=== PATIENT | male | born 1975 | race Caucasian/White ===

== ENCOUNTER 2018-10-30 11:30 | Emergency (ER) | payer OTHER ==
--- OUTSIDE RECORDS SUMMARY | 2018-10-30 11:39 | XMS REPORT ---
:1975 [facility] Address [address] [place] [address] Care Team Providers Name Role Phone Unavailable Unavailable Unavailable Problems This patient has no known problems. Allergies, Adverse Reactions, Alerts This patient has no known allergies or adverse reactions. Medications This patient has no known medications.
--- NOTE | 2018-10-30 14:19 | EDPHYS ---
Physician Documentation [facility] Name: Lauri Redmond Age: 43 yrs Sex: Male : 1975 Arrival Date: 10/30/2018 Time: 11:33 Bed 24 Private MD: ED Physician Miller Burroughs HPI: 10/30 14:06 This 43 yrs old Male presents to ER via Ambulatory with complaints of Arm kdr Injury. 14:06 The patient or guardian complains of injury, pain, that is acute. The complaints affect kdr the left bicep and left antecubital area. Context: The problem was sustained at work, resulted from Nail gun - nail to left distal upper arm. Onset: The symptoms/episode began/occurred acutely, 4 day(s) ago. Treatment prior to arrival includes: no previous treatment, christopher wrap. Modifying factors: The symptoms are alleviated by remaining still, the symptoms are aggravated by movement, Christopher wrap to arm. Associated signs and symptoms: The patient has no apparent associated signs or symptoms. Severity of symptoms: At their worst the symptoms were mild, in the emergency department the symptoms are unchanged. The patient has not experienced similar symptoms in the past. The patient has not recently seen a physician. Historical: - Allergies: 11:47 Hydrocodone-Acetaminophen (Upset stomach); sleeping; tw2 11:47 "basically any generic thing for pain"; tw2 - Home Meds: 11:47 Metoprolol Tartrate Oral [Active]; lisinopril-hydrochlorothiazide oral [Active]; tw2 hydrocodone-acetaminophen 7.5-325 mg Oral tab 1 tab every 4 hours [Active]; - PMHx: 11:47 Hypertension; Back pain; tw2 - Immunization history:: Last tetanus immunization: unknown. - Social history:: Smoking status: Patient uses tobacco products, smokes one pack cigarettes per day. smokes two packs cigarettes per day. - Ebola Screening: : Patient denies travel to an Ebola-affected area in the 21 days before illness onset. ROS: 14:06 Constitutional: Negative for fever, chills, and weight loss, Eyes: Negative for injury, kdr pain, redness, and discharge, Neck: Negative for injury, pain, and swelling. 14:06 MS/extremity: Positive for injury or acute deformity, ecchymosis, pain, tenderness, of the left bicep and left antecubital area. Exam: 14:06 Constitutional: This is a well developed, well nourished patient who is awake, alert, kdr and in no acute distress. 14:06 Musculoskeletal/extremity: Extremities: grossly normal except: There is a small puncture wound to the anterior left distal bicep. Large area of ecchymosis surrounding the puncture wound but minimal erythema, tenderness and no discharge, ROM: no acute changes. Vital Signs: 11:42 BP 135 / 96; Pulse 88; Resp 17; Temp 98.4(O); Pulse Ox 96% on R/A; Weight 99.34 kg (R); tw2 Height 5 ft. 11 in. (180.34 cm); Pain 0/10; 13:03 BP 148 / 85; Pulse 84; Resp 19 S; Pulse Ox 97% on R/A; ca1 14:10 BP 130 / 85; Pulse 84; Resp 19 S; Pulse Ox 96% on R/A; ca1 11:42 Body Mass Index 30.54 (99.34 kg, 180.34 cm) tw2 MDM: 14:06 Data reviewed: vital signs, nurses notes. Counseling: I had a detailed discussion with kdr the patient and/or guardian regarding: the historical points, exam findings, and any diagnostic results supporting the discharge/admit diagnosis, the need for outpatient follow up. 14:19 Patient medically screened. kdr Administered Medications: 14:07 Drug: KeFLEX 500 mg Route: PO; ca1 14:30 Follow up: Response: No adverse reaction ca1 14:08 Drug: Tetanus-Diphtheria Toxoid Adult 0.5 ml {[employer]p [employer]: [employer]. Exp: ca1 09/05/2020. Lot #: [id number]. } Route: IM; Site: left deltoid; 14:30 Follow up: Response: No adverse reaction ca1 Disposition: 10/30/18 14:19 Discharged to Home. Impression: Puncture wound without foreign body of left upper arm. - Condition is Stable. - Discharge Instructions: Puncture Wound, [id number]. - Prescriptions for Keflex 500 mg Oral Capsule - take 1 capsule by ORAL route every 6 hours for 7 days; 28 capsule. - Medication Reconciliation Form, Thank You Letter, Antibiotic Education form. - Follow up: Private Physician; When: 1 - 2 days; Reason: If symptoms return, Further diagnostic work-up, Recheck today's complaints, Continuance of care, Re-evaluation by your physician. - Problem is new. - Symptoms are unchanged. Signatures: Miller Burroughs MD MD kdr Bren Sullivan RN RN tw2 Kailyn Nevarez RN RN ca1 Corrections: (The following items were deleted from the chart) 14:30 14:19 10/30/2018 14:19 Discharged to Home. Impression: Puncture wound without foreign ca1 body of left upper arm. Condition is Stable. Forms are Medication Reconciliation Form, Thank You Letter, Antibiotic Education, Prescription Opioid Use. Follow up: Private Physician; When: 1 - 2 days; Reason: If symptoms return, Further diagnostic work-up, Recheck today's complaints, Continuance of care, Re-evaluation by your physician. Problem is new. Symptoms are unchanged. kdr
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
[2018-10-30] MEDS ORDERED: CEPHALEXIN 250 MG CAP ONE (14:23)
[2018-10-30] MEDS ORDERED: TETANUS & DIPHTHERIA TOX,ADULT 0.5 ML VIAL ONE (14:23)
[2018-10-30 14:43] VITALS: TEMP 98.4
[2018-10-30 14:54] VITALS: BP 130/85; O2SAT 96
== END 2018-10-30 14:30 | disposition home or self-care (01) ==
LOC: ER 11:30
DX: S41.132A Puncture wound without foreign body of left upper arm, initial encounter (principal); W29.4XXA Contact with nail gun, initial encounter; I10 Essential (primary) hypertension; F17.210 Nicotine dependence, cigarettes, uncomplicated; Z23 Encounter for immunization; Z88.5 Allergy status to narcotic agent
CPT/HCPCS: 90714; 99283

== ENCOUNTER 2019-08-08 20:00 | Emergency (ER) | payer OTHER ==
--- OUTSIDE RECORDS SUMMARY | 2019-08-08 20:02 | XMS REPORT ---
:1975 [facility] Address [address] [place] [address] Care Team Providers Name Role Phone Unavailable Unavailable Unavailable Problems This patient has no known problems. Allergies, Adverse Reactions, Alerts This patient has no known allergies or adverse reactions. Medications This patient has no known medications.
[2019-08-08] MEDS ORDERED: DIPHENHYDRAMINE 50 MG/ML VIAL ONE (22:41)
[2019-08-08] MEDS ORDERED: NA CHLORIDE 0.9% 250 ML ONE (22:41)
[2019-08-08] MEDS ORDERED: METOCLOPRAMIDE 10 MG/2mL INJ ONE (22:41)
[2019-08-08 23:08] LABS: Absolute Lymphocytes (CBC) 1.4 K/uL (0.7-4.9); Basophils % 1.2 % (0-1.3); Hematocrit 48.7 % (39.6-49.0); Lymphocytes % 13.7 % (15.3-44.8); RBC Red Blood Cell Count 5.94 M/uL (4.33-5.43)
[2019-08-08 23:31] LABS: MPV 10.8 fL (7.6-11.3)
[2019-08-09 00:20] LABS: Albumin 3.6 g/dL (3.4-5.0); Bilirubin Total 0.4 mg/dL (0.2-1.0); Potassium 4.2 mmol/L (3.5-5.1); Protein, Total 7.9 g/dL (6.4-8.2)
--- NOTE | 2019-08-09 00:57 | ER ---
Nurse's Notes [facility] Name: Lauri Redmond Age: 44 yrs Sex: Male : 1975 Arrival Date: 08/08/2019 Time: 20:02 Bed 16 Private MD: Diagnosis: Headache;Acute sinusitis Presentation: 08/08 20:08 Presenting complaint: Patient states: Facial pain, ear pain, for the past 2 days. aj1 Patient states that he is unsure if he has been running fever. Transition of care: patient was not received from another setting of care. Onset of symptoms was 2019. Risk Assessment: Do you want to hurt yourself or someone else? Patient reports no desire to harm self or others. Initial Sepsis Screen: Does the patient meet any 2 criteria? No. Patient's initial sepsis screen is negative. Does the patient have a suspected source of infection? No. Patient's initial sepsis screen is negative. Care prior to arrival: None. 20:08 Method Of Arrival: Ambulatory aj1 20:08 Acuity: NORMA 3 aj1 20:13 Note Patient states that his blood pressure is always around where it is right now, he aj1 has never been able to get it under control even with the medications. Triage Assessment: 20:10 General: Appears in no apparent distress. comfortable, Behavior is calm, cooperative, aj1 appropriate for age. Pain: Pain currently is 10 out of 10 on a pain scale. Neuro: Level of Consciousness is awake, alert, obeys commands. Cardiovascular: Patient's skin is warm and dry. Respiratory: Airway is patent Respiratory effort is even, unlabored, Respiratory pattern is regular, symmetrical. Historical: - Allergies: 20:10 "basically any generic thing for pain"; aj1 - Home Meds: 20:10 hydrocodone-acetaminophen 7.5-325 mg Oral tab 1 tab every 4 hours [Active]; aj1 lisinopril-hydrochlorothiazide Oral [Active]; Metoprolol Tartrate Oral [Active]; 20:14 Prednisone Oral [Active]; Naproxen Oral [Active]; aj1 - PMHx: 20:10 Back pain; Hypertension; aj1 - Immunization history:: Flu vaccine is not up to date. - Social history:: Smoking status: Patient reports the use of cigarette tobacco products, smokes one pack cigarettes per day. - Ebola Screening: : Patient denies travel to an Ebola-affected area in the 21 days before illness onset. Screenin:21 Abuse screen: Denies threats or abuse. Nutritional screening: No deficits noted. vc Tuberculosis screening: No symptoms or risk factors identified. Fall Risk None identified. Assessment: 22:17 Reassessment: Patient refuses to allow any vitals to be taken. Patient states, "I'm not vc here for vitals I am here for pain." When asked when the pain started patient stated "I do not know, it didn't start today and it didn't start yesterday.". 22:21 Reassessment: Provider at bedside. vc 22:44 Reassessment: Patient refused to ride in wheelchair or stretcher to CT. Patient walked vc to CT. 23:30 General: Appears in no apparent distress. uncomfortable, Behavior is agitated, vc uncooperative. Pain: Complains of pain in right gnosticism and right ear and right eye. Neuro: Level of Consciousness is awake, alert, Oriented to person, place, time, situation. Cardiovascular: Patient's skin is warm and dry. Respiratory: Respiratory effort is even, unlabored. GI: No deficits noted. : No signs and/or symptoms were reported regarding the genitourinary system. EENT: No deficits noted. Derm: Skin is intact. Musculoskeletal: Circulation, motion, and sensation intact. Range of motion: intact in all extremities. 08/09 00:30 Reassessment: Patient is resting with eyes closed. vc 01:00 Reassessment: No changes from previously documented assessment. vc Vital Signs: 08/08 20:10 BP 181 / 126; Pulse 97; Resp 18; Temp 97.8; Pulse Ox 97% on R/A; Height 5 ft. 11 in. aj1 (180.34 cm) (R); Pain 10/10; 23:00 BP 186 / 118; Pulse 85; Pulse Ox 99% on R/A; vc 08/09 00:00 BP 158 / 123; Pulse 81; Pulse Ox 97% on R/A; vc 01:00 BP 141 / 96; Pulse 81; Pulse Ox 97% on R/A; vc ED Course: 08/08 20:02 Patient arrived in ED. cl3 20:09 Triage completed. aj1 20:10 Arm band placed on Patient placed in waiting room, Patient notified of wait time. aj1 21:46 Carlos Moore PA is PHCP. [facility] 21:46 Eamon Stoner MD is Attending Physician. [facility] 22:09 Daxa Del Valle, RN is Primary Nurse. vc 22:21 Patient has correct armband on for positive identification. vc 22:44 Radiology exam delayed due to Pt refused to come down to CT in wheelchair or stretcher. nj 22:52 CT Head Brain wo Cont In Process Unspecified. EDMS 23:03 Inserted saline lock: 22 gauge in right antecubital area, using aseptic technique. lp1 08/09 01:25 No provider procedures requiring assistance completed. IV discontinued, intact, vc bleeding controlled, No redness/swelling at site. Pressure dressing applied, Patient request us to use special "hand soap that removes IV tape", instructed patient we use alcohol wipes, patient allows me to remove tegaderm with alcohol wipe. Administered Medications: 08/08 23:10 Drug: Reglan 10 mg Route: IVP; Site: right antecubital; vc 08/09 03:59 Follow up: Response: No adverse reaction vc 08/08 23:10 Drug: diphenhydrAMINE 25 mg Route: IVP; Site: right antecubital; vc 08/09 00:10 Follow up: Response: No adverse reaction 08/08 23:11 Drug: NS 0.9% 250 ml Route: IV; Rate: bolus; Site: right antecubital; vc 08/09 00:30 Follow up: Response: No adverse reaction; IV Status: Completed infusion vc Outcome: 00:56 Discharge ordered by MD. [facility] 01:25 Discharged to home ambulatory. vc 01:25 Condition: improved 01:25 Discharge instructions given to patient, Instructed on discharge instructions, follow up and referral plans. medication usage, Demonstrated understanding of instructions, follow-up care, medications. 01:27 Patient left the ED. lp1 Signatures: Dispatcher [employer] EDMS Teresa Peacock RN RN [email or web address] Carlos Moore PA PA jmm Pena, Laura, RN RN lp1 Kevin Ochoa Charde cl3 Daxa Del Valle RN RN vc Corrections: (The following items were deleted from the chart) 08/08 20:13 20:08 Acuity: NORMA 4 aj1 aj1
--- NOTE | 2019-08-09 00:57 | EDPHYS ---
Physician Documentation [facility] Name: Lauri Redmond Age: 44 yrs Sex: Male : 1975 Arrival Date: 08/08/2019 Time: 20:02 Bed 16 Private MD: ED Physician Eamon Stoner HPI: 08/08 22:32 This 44 yrs old Male presents to ER via Ambulatory with complaints of jmm Pressure Right Side of Head, Drainage From Ear. 22:32 The patient complains of pain to the right eye, right ear and right bahai. Onset: The jmm symptoms/episode began/occurred gradually, at an unknown time. Associated signs and symptoms: Pertinent positives: sinus tenderness, cough. This is a 44 year old male with a history of right sided headache, cough, congestion, and right ear pain. Patient unable to given a specific time of onset but states having chronic sinus issues and as well chronic headaches. Denies fever or chills. States his headaches are normally on the opposite side. . Historical: - Allergies: 20:10 "basically any generic thing for pain"; aj1 - Home Meds: 20:10 hydrocodone-acetaminophen 7.5-325 mg Oral tab 1 tab every 4 hours [Active]; aj1 lisinopril-hydrochlorothiazide Oral [Active]; Metoprolol Tartrate Oral [Active]; 20:14 Prednisone Oral [Active]; Naproxen Oral [Active]; aj1 - PMHx: 20:10 Back pain; Hypertension; aj1 - Immunization history:: Flu vaccine is not up to date. - Social history:: Smoking status: Patient reports the use of cigarette tobacco products, smokes one pack cigarettes per day. - Ebola Screening: : Patient denies travel to an Ebola-affected area in the 21 days before illness onset. ROS: 22:32 Constitutional: Negative for fever, chills, and weight loss, Cardiovascular: Negative jmm for chest pain, palpitations, and edema. 22:32 ENT: Positive for ear pain. 22:32 Respiratory: Positive for cough. 22:32 Abdomen/GI: Negative for vomiting. 22:32 Neuro: Positive for headache. 22:32 All other systems are negative. Exam: 22:32 Constitutional: This is a well developed, well nourished patient who is awake, alert, jmm and in no acute distress. Head/Face: atraumatic. 22:32 Neck: Trachea midline, Supple Chest/axilla: Normal chest wall appearance and motion. Cardiovascular: Regular rate and rhythm. No edema appreciated Respiratory: Normal respirations, no respiratory distress appreciated Abdomen/GI: Non distended, soft Back: Normal ROM Skin: General appearance color normal MS/ Extremity: Moves all extremities, no obvious deformities appreciated, no edema noted to the lower extremities Neuro: Awake and alert, normal gait Psych: Behavior is normal, Mood is normal, Patient is cooperative and pleasant 22:32 Eyes: Extraocular movements: intact throughout. Vital Signs: 20:10 BP 181 / 126; Pulse 97; Resp 18; Temp 97.8; Pulse Ox 97% on R/A; Height 5 ft. 11 in. aj1 (180.34 cm) (R); Pain 10/10; 23:00 BP 186 / 118; Pulse 85; Pulse Ox 99% on R/A; vc 08/09 00:00 BP 158 / 123; Pulse 81; Pulse Ox 97% on R/A; vc 01:00 BP 141 / 96; Pulse 81; Pulse Ox 97% on R/A; vc MDM: 08/08 21:57 Patient medically screened. [facility] 08/09 00:55 Data reviewed: vital signs, nurses notes. Counseling: I had a detailed discussion with rebekah the patient and/or guardian regarding: the historical points, exam findings, and any diagnostic results supporting the discharge/admit diagnosis, radiology results, the need for outpatient follow up, to return to the emergency department if symptoms worsen or persist or if there are any questions or concerns that arise at home. ED course: Patient is alert and non toxic in appearance in the ED. Headache relieved in the ED. Patient advised to follow up with pc and otherwise given strict return precautions. Patient understood and agrees with the plan of care. . 08/08 22:31 Order name: CBC with Diff [facility] 08/08 22:31 Order name: CMP; Complete Time: 00:35 [facility] 08/08 22:31 Order name: CT Head Brain wo Cont [facility] 08/08 22:31 Order name: Saline Lock; Complete Time: 23:12 [facility] Administered Medications: 08/08 23:10 Drug: Reglan 10 mg Route: IVP; Site: right antecubital; vc 08/09 03:59 Follow up: Response: No adverse reaction 08/08 23:10 Drug: diphenhydrAMINE 25 mg Route: IVP; Site: right antecubital; vc 08/09 00:10 Follow up: Response: No adverse reaction 08/08 23:11 Drug: NS 0.9% 250 ml Route: IV; Rate: bolus; Site: right antecubital; vc 08/09 00:30 Follow up: Response: No adverse reaction; IV Status: Completed infusion vc Disposition: 08/09/19 00:56 Discharged to Home. Impression: Headache, Acute sinusitis. - Condition is Stable. - Discharge Instructions: General Headache Without Cause, Sinusitis, Adult. - Prescriptions for Augmentin 875- 125 mg Oral Tablet - take 1 tablet by ORAL route every 12 hours for 10 days; 20 tablet. - Medication Reconciliation Form, Thank You Letter, Antibiotic Education, Prescription Opioid Use form. - Follow up: Private Physician; When: 2 - 3 days; Reason: Recheck today's complaints, Continuance of care, Re-evaluation by your physician. Addendum: 08/10/2019 10:01 Co-signature as Attending Physician, Eamon Stoner MD I agree with the assessment and c hoffman plan of care. Signatures: Dispatcher [employer] EDMS Teresa Peacock RN RN aj1 Eamon Stoner MD MD cha Mickail, Joel, PA PA [facility] Penelope Messer RN RN lp1 Daxa Del Valle RN RN vc Corrections: (The following items were deleted from the chart) 08/09 01:27 00:56 08/09/2019 00:56 Discharged to Home. Impression: Headache; Acute sinusitis. lp1 Condition is Stable. Forms are Medication Reconciliation Form, Thank You Letter, Antibiotic Education, Prescription Opioid Use. Follow up: Private Physician; When: 2 - 3 days; Reason: Recheck today's complaints, Continuance of care, Re-evaluation by your physician. rebekah
[2019-08-09 02:04] VITALS: BP 181/126; TEMP 97.8; O2SAT 97
[2019-08-09 02:35] LABS: Blood Morphology Comment NOT SEEN (NOT SEEN); Platelet Estimate ADEQ; Urine White Blood Cell Casts OK
--- NOTE | 2019-08-11 16:10 | RAD REPORT ---
EXAM DESCRIPTION: CT - Head Brain Wo Cont - 08/08/2019 10:51 pm CLINICAL HISTORY: Headache. COMPARISON: None. TECHNIQUE: CT scan of the brain without IV contrast. This exam was performed according to our depa rtmental dose-optimization program, which includes automated exposure control, adjustment of the mA a nd/or kV according to patient size and/or use of iterative reconstruction technique. FINDINGS: The ventricles, cisterns, and sulci are age-appropriate. There is prominence of the drapery installer ior fossa CSF space, which may represent either an arachnoid cyst or noah cisterna magna. No evidence of acute infarction, intracranial hemorrhage, extra-axial fluid collection, or midline shift. There is sinus mucosal disease in the bilateral ethmoid and maxillary sinuses. No depressed skull fracture. IMPRESSION: 1. No acute intracranial findings. 2. Sinus mucosal inflammatory disease. Electronically signed by: Angel Saba MD 08/08/2019 11:19 PM PROJECT DEVELOPER Due to temporary technical issues with the PACS/Fluency reporting system, reports are being signed by the in house radiologist as a courtesy to ensure prompt reporting. The interpreting radiologist is f ully responsible for the content of the report.
== END 2019-08-09 01:27 | disposition home or self-care (01) ==
LOC: ER 20:00
DX: J01.90 Acute sinusitis, unspecified (principal); I10 Essential (primary) hypertension; F17.210 Nicotine dependence, cigarettes, uncomplicated
CPT/HCPCS: 96361; 85025; 36415; 80053; 70450; 96375; 96374; 99284; J2765; J1200; J7030; 96365

== ENCOUNTER 2020-03-11 19:18 | Emergency (ER) | payer OTHER ==
--- OUTSIDE RECORDS SUMMARY | 2020-03-11 19:20 | XMS REPORT | Summary of Care ---
:1975 Author Organization [facility] Address [address] [place] [address] Care Team Providers Name Role Phone Ata Parson MD Primary Care Provider [phone] Reason for Visit Reason Comments Exposure Encounter Details Date Type Department Care Team Description 02/12/2020 Laboratory Only [facility] Family Landon Maya, CHEMISTRY TECHNICIAN [address] [place] [address] [address] Suspected Covid-19 Medicine - [facility], Adc Fam Pob I Virus Infection [address] [place] [address] (Primary D [place]) [place] [address] Allergies Active Allergy Reactions Severity Noted Date Comments Hydrocodone-Acetaminophen Nausea and/or Vomiting Low 12/07 documented as of this encounter (statuses as of 02/12/2020) Medications Medication Sig Dispensed Refills Start Date End Date Status metoprolol succinate XL Take 25 mg by 0 Active 25 mg 24 hr tablet mouth daily. PREDNISONE Take 20 mg by 0 Activ e ORALIndications: pt mouth daily. takes this med at hs Indications: pt takes this med at hs brompheniramine-pseudoep Take 10 mL by 120 mL 0 11/13/2019 Active hedrine-DM (BROMFED DM) mouth 4 (four) 2-30-10 mg/5 mL times daily as syrupIndications: Cough needed for Cough. Bismuth Subsalicylate Take 1 tablet 30 tablet 1 11/13/2019 Active (PEPTO-BISMOL) 262 mg by mouth 4 tabletIndications: (four) times Diarrhea, unspecified daily as needed type (diarrhea). acetaminophen 650 mg CR Take 1 tablet 20 tablet 0 11/13/2019 Active tabletIndications: Other by mouth every headache syndrome 8 (eight) hours as needed for Pain or Fever. amLODIPine 10 mg Take 1 tablet 90 tablet 1 11/13/2019 Active tabletIndications: by mouth daily. Hypertensive urgency esomeprazole magnesium Take 40 mg by 0 Active (NEXIUM 24HR) 20 mg TbEC mouth. HYDROcodone-acetaminophe Take 0.5 0 Active n 7.5-325 mg per tablet tablets by mouth every 4 (four) hours. lisinopril-hydrochloroth Take 2 tablets 60 tablet 12 12/08/2019 Active iazide 20-12.5 mg per by mouth every tabletIndications: evening. Essential hypertension omeprazole 40 mg Take 1 capsule 30 capsule 12 12/08/2019 Active capsuleIndications: by mouth daily. Gastroesophageal reflux disease without esophagitis documented as of this encounter (statuses as of 02/12/2020) Active Problems Problem Noted Date Hypertensive urgency 11/13/2019 Cough 11/13/2019 Diarrhea, unspecified type 11/13/2019 Other headache syndrome 11/13/2019 Suspected Covid-19 Virus Infection 11/13/2019 Tobacco dependence 11/13/2019 Anesthesia complication Overview: Pt states he wakes up aggressive Hypertension Chronic neck and back pain Acid reflux documented as of this encounter (statuses as of 02/12/2020) Social History Tobacco Use Types Packs/Day Years Used Date Current Every Day Smoker Cigarettes 1.5 Smokeless Tobacco: Never Used Alcohol Use Drinks/Week oz/Week Comments Yes Occasional Drink er Sex Assigned at Date Recorded Not on file Job Start Date Occupation Industry Not on file Not on file Not on file Travel History Travel Start Travel End No recent travel history available. documented as of this encounter Last Filed Vital Signs Not on filedocumented in this encounter Plan of Treatment Date Type Specialty Care Team Description 02/19/2020 Office Visit Family Medicine Vijay Dior MD [address] [place] [address] Dr Alfaro [address] [place] [address] 15 [phone] Name Type Priority Associated Diagnoses Order S chedule COVID-19 (PCR MOLECULAR LAB Routine Suspected Covid-1 9 Virus Expected: 02/12/2020, TESTING) Infection Expires: 2020 Health Maintenance Due Date Last Done Comments PNEUMOCOCCAL 0-64 YEARS COMBINED SERIES ( - 1980 PPSV23) DTaP,Tdap,and Td Vaccines (1 - Tdap) 1985 Depression Screening 1986 INFLUENZA VACCINE (#1) 2020 documented as of this encounter Results Not on filedocumented in this encounter Visit Diagnoses Diagnosis Suspected Covid-19 Virus Infection - Kasie perez documented in this encounter Additional Health Concerns Infection Onset Date Last Indicated Resolved Time COVID-19 Rule Out 02/12/2020 02/12/2020 documented as of this encounter Insurance Payer Benefit Plan / Subscriber ID Effective Dates Phone Addre ss Type Group [facility] xxxxxxxxx 2018-[facility] Medicaid COMM PLAN - PLUS t MANAGED MEDICAID documented as of this encounter
--- OUTSIDE RECORDS SUMMARY | 2020-03-11 19:20 | XMS REPORT | Summary of Care ---
:1975 Author Organization [facility] Address [address] [place] [address] Care Team Providers Name Role Phone Ata Parson MD Primary Care Provider [phone] Encounter Details Date Type Department Care Team Description 02/12/2020 Letter (Out) [facility] [employer] Message s Doctor Unassigned, No [address] [facility] [place] [address] [facility] [phone] [place] [address] Allergies Active Allergy Reactions Severity Noted Date [...] Treatment Date Type Specialty Care Team Description 02/12/2020 Laboratory Only Family Medicine Sharon Maya FNP [address] [facility] [address] [address] Suspected Covid-19 Lab, Adc Fam Pob I Virus Infection (Primary Dx) 02/19/2020 Office Visit Family Medicine Vijay Dior MD [address] [place] [address] [address] Health Maintenance Due Date Last Done Comments PNEUMOCOCCAL 0-64 YEARS COMBINED SERIES (1 of - 1980 PPSV23) DTaP,Tdap,and Td Vaccines (1 - Tdap) 1985 Depression Screening 1986 INFLUENZA VACCINE (#1) 2020 documented as of this encounter Results Not on filedocumented in this encounter Insurance Payer Benefit Plan / Subscriber ID Effective Dates Phone Addre ss Type Group [facility] STAR xxxxxxxxx 2018-[facility] Medicaid COMM PLAN - PLUS t MANAGED MEDICAID documented as of this encounter
--- OUTSIDE RECORDS SUMMARY | 2020-03-11 19:20 | XMS REPORT | Summary of Care ---
:1975 Author Organization [facility] Address [address] [place] [address] Care Team Providers Name Role Phone Ata Parson MD Primary Care Provider [phone] Reason for Visit Reason Comments Refill Request Encounter Details Date Type Department Care Team Description 02/13/2020 Refill [facility] Pediatric and Ata Hernandez MD Refill Request Adult Primary Care- [address] [place] [address] [place] [address], [address] [place] [address] Allergies Active Allergy Reactions Severity Noted Date Comments Hydrocodone-Acetaminophen Nausea and/or Vomiting Low 12/07 documented as of this encounter (statuses as of 02/13/2020) Medications Medication Sig Dispensed Refills Start End Date Status Date metoprolol succinate Take 25 mg 0 Active XL 25 mg 24 hr tablet by mouth daily. PREDNISONE Take 20 mg 0 Active ORALIndications: pt by mouth takes this med at hs daily. Indications: pt takes this med at hs brompheniramine-pseud Take 10 mL 120 mL 0 Active oephedrine-DM by mouth 4 0 (BROMFED DM) 2-30-10 (four) times mg/5 mL daily as syrupIndications: needed for Cough Cough. Bismuth Subsalicylate Take 1 30 tablet 1 Active (PEPTO-BISMOL) 262 mg tablet by 0 tabletIndications: mouth 4 Diarrhea, unspecified (four) times type daily as needed (diarrhea). acetaminophen 650 mg Take 1 20 tablet 0 Active CR tabletIndications: tablet by 0 Other headache mouth every syndrome 8 (eight) hours as needed for Pain or Fever. amLODIPine 10 mg Take 1 90 tablet 1 Act chuck tabletIndications: tablet by 0 Hypertensive urgency mouth daily. HYDROcodone-acetamino Take 0.5 0 Active phen 7.5-325 mg per tablets by tablet mouth every 4 (four) hours. lisinopril-hydrochlor Take 2 60 tablet 12 Active othiazide 20-12.5 mg tablets by 0 per mouth every tabletIndications: evening. Essential hypertension OMEPRAZOLE 40 mg TAKE 1 90 capsule 0 Ac tive capsuleIndications: CAPSULE BY 0 Gastroesophageal MOUTH EVERY reflux disease DAY without esophagitis esomeprazole Take 40 mg 0 02/13/20 Discon tinued magnesium (NEXIUM by mouth. 20 (A lternate 24HR) 20 mg TbEC the rapy) omeprazole 40 mg Take 1 30 capsule 12 02/13/20 Di scontinued capsuleIndications: capsule by 0 20 Gastroesophageal mouth daily. reflux disease without esophagitis documented as of this encounter (statuses as of 02/13/2020) Active Problems Problem Noted Date Hypertensive urgency 11/13/2019 Cough 11/13/2019 Diarrhea, unspecified type 11/13/2019 Other headache syndrome 11/13/2019 Suspected Covid-19 Virus Infection 11/13/2019 Tobacco dependence 11/13/2019 Anesthesia complication Overview: Pt states he wakes up aggressive Hypertension Chronic neck and back pain Acid reflux documented as of this encounter (statuses as of 02/13/2020) Social History Tobacco Use Types Packs/Day Years [...] Office Visit Family Medicine Vijay Dior MD [address] [place] [address] Dr Alfaro [address] [place] [address] 15 [phone] Health Maintenance Due Date Last Done Comments PNEUMOCOCCAL 0-64 YEARS COMBINED SERIES (1 of 1 - 1980 PPSV23) DTaP,Tdap,and Td Vaccines (1 - Tdap) 1985 Depression Screening 1986 INFLUENZA VACCINE (#1) 2020 documented as of this encounter Results Not on filedocumented in this encounter Visit Diagnoses Diagnosis Gastroesophageal reflux disease without esophagitis Esophageal reflux documented in this encounter Additional Health Concerns Infection Onset Date Last Indicated Resolved Time COVID-19 Rule Out 02/12/2020 02/12/2020 documented as of this encounter Insurance Payer Benefit Plan / Subscriber ID Effective Dates Phone Addre ss Type Group [facility] STAR xxxxxxxxx 2018-[facility] Medicaid COMM PLAN - PLUS t MANAGED MEDICAID documented as of this encounter
--- OUTSIDE RECORDS SUMMARY | 2020-03-11 19:20 | XMS REPORT | Continuity of Care Document ---
:1975 Author Organization [facility] t Address [address] [place] [address] Care Team Providers Name Role Phone Win HARPER Attending Clinician Problems This patient has no known problems. Allergies, Adverse Reactions, Alerts This patient has no known allergies or adverse reactions. Medications This patient has no known medications. Procedures This patient has no known procedures. Encounters Start End Encounter Admission Attending Care Care Encounter Source Date/Time Date/Time Type Type Clinicians Facility Department ID 2020-03-04 2020-03-04 Office CHUCK Walden [id number] 11:30:10 12:03:59 Visit Sivakumar Licea [id number] Gabriela [id number] Aristides [id number] nal 059 Building Results This patient has no known results.
--- OUTSIDE RECORDS SUMMARY | 2020-03-11 19:21 | XMS REPORT | Summary of Care ---
:1975 Author Organization [facility] Address [address] [place] [address] Care Team Providers Name Role Phone Ata Parson MD Primary Care Provider [phone] Reason for Visit Reason Comments Rx Concern/Question Encounter Details Date Type Department Care Team Description 02/24/[address] [facility] [email or web address] Family Ata Parson Rx Conc popeye/Question Medicine - Vinayak Simmons MD [address] [place] [address] Dr woods [address] [place] [address] [place] [address] [place], [place] [phone] Allergies Active Allergy Reactions Severity Noted Date Comments Hydrocodone-Acetaminophen Nausea and/or Vomiting Low 12/07 documented as of this encounter (statuses as of 02/24/2020) Medications Medication Sig Dispensed Refills Start Date End Date Status metoprolol succinate XL Take 25 mg by 0 Active 25 mg 24 hr tablet mouth daily. acetaminophen 650 mg CR Take 1 tablet 20 tablet 0 11/13/2019 Active tabletIndications: Other by mouth every headache syndrome 8 (eight) hours as needed for Pain or Fever. amLODIPine 10 mg Take 1 tablet 90 tablet 1 11/13/2019 Active tabletIndications: by mouth daily. Hypertensive urgency HYDROcodone-acetaminophe Take 0.5 0 Active n 7.5-325 mg per tablet tablets by mouth every 4 (four) hours. OMEPRAZOLE 40 mg TAKE 1 CAPSULE 90 capsule 0 02/13/2020 Active capsuleIndications: BY MOUTH EVERY Gastroesophageal reflux DAY disease without esophagitis meclizine 12.5 mg Take 1 tablet 90 tablet 0 02/19/2020 Active tabletIndications: by mouth 3 Dizziness (three) times daily as needed for Dizziness. documented as of this encounter (statuses as of 02/24/2020) Active Problems Problem Noted Date Dizziness 02/19/2020 Intermittent chest pain 02/19/2020 Hypertensive urgency 11/13/2019 Cough 11/13/2019 Diarrhea, unspecified type 11/13/2019 Other headache syndrome 11/13/2019 Suspected Covid-19 Virus Infection 11/13/2019 Tobacco dependence 11/13/2019 Anesthesia complication Overview: Pt states he wakes up aggressive Hypertension Chronic neck and back pain Acid reflux documented as of this encounter (statuses as of 02/24/2020) Social History Tobacco Use Types Packs/Day Years Used Date Current Every Day Smoker Cigarettes 1.5 Smokeless Tobacco: Never Used Alcohol Use Drinks/Week oz/Week Comments Yes Occasional Drink er Sex Assigned at Date Recorded Not on file COVID-19 Exposure Response Date Recorded In the last month, have you been in contact with No / Unsure 02/19/2020 3:22 PM CDT someone who was confirmed or suspected to have Coronavirus / COVID-19? documented as of this encounter Last Filed Vital Signs Not on filedocumented in this encounter Miscellaneous Notes Telephone Encounter - Riddhi Amos - 02/24/2020 12:53 PM CDTPlease Review elephone Encounter - Adriana Puente - 02/24/2020 9:28 AM CDTMary Marni with [facility] pharmacy is requesting lisinopril directions changed from 2 a day to 1 a day due topatient insurance will only cover 1 tablet a day or change medication to a higher dosage. documented in this encounter Plan of Treatment Date Type Specialty Care Team Description 03/04/2020 Office Visit Cardiology Sivakumar Walden M D [address] [facility] [address] [place] [address] 03/23/2020 Office Visit Family Medicine Vijay Dior MD [address] [place] [address] Dr Alfaro [address] [place] [address] 15 Health Maintenance Due Date Last Done Comments PNEUMOCOCCAL 0-64 YEARS COMBINED SERIES (1 of 1 - 1980 PPSV23) DTaP,Tdap,and Td Vaccines (1 - Tdap) 1993 INFLUENZA VACCINE (#1) 2020 Depression Screening 02/18/2021 02/19/2020 Colorectal Cancer Screening 2024 documented as of this encounter Results Not on filedocumented in this encounter Insurance Payer Benefit Plan / Subscriber ID Effective Dates Phone Addre ss Type Group [facility] STAR [id number] 2018-[employer] Medicaid COMM PLAN - PLUS t MANAGED MEDICAID documented as of this encounter
--- OUTSIDE RECORDS SUMMARY | 2020-03-11 19:21 | XMS REPORT | Summary of Care ---
:1975 Author Organization [facility] Address [address] [place] [address] Care Team Providers Name Role Phone Ata Parson MD Primary Care Provider [phone] Reason for Referral (Routine) Status Reason Specialty Diagnoses / Referred By Referred To Procedures Contact Contact New Request Cardiology Diagnoses Essential hypertension Intermittent chest pain Dizziness Vijay Dior, Procedures ECHO ROUTINE W/DOPPLER COLOR Preferred Location: [facility] [address] [place] [address] Dr Alfaro [address] [place] [address] [phone] (Routine) Status Reason Specialty Diagnoses / Referred By Referred To Procedures Contact Contact New Request Cardiology Diagnoses Essential hypertension Intermittent chest pain Dizziness Vijay Dior, Procedures CONSULT/REFERRAL CARDIOLOGY [address] [place] [address] Dr Alfaro [address] [place] [address] [phone] Reason for Visit Reason Comments Dizziness Hypertension SMOKING Encounter Details Date Type Department Care Team Description 02/19/2020 Office Visit [facility] Pediatric Vijay Dior E ssential hypertension (Primary Dx); and Adult Primary MD Intermittent chest pain; Care- [address] Antunez; [address] [place] [address], [address] [place] [address] [place] [phone] [address] [phone] Allergies Active Allergy Reactions Severity Noted Date Comments Hydrocodone-Acetaminophen Nausea and/or Vomiting Low 12/07 documented as of this encounter (statuses as of 02/24/2020) Medications Medication Sig Dispensed Refills Start End Date Status Date metoprolol succinate Take 25 mg 0 Active XL 25 mg 24 hr tablet by mouth daily. acetaminophen 650 mg Take 1 20 tablet [...] MOUTH EVERY reflux disease DAY without esophagitis meclizine 12.5 mg Take 1 90 tablet 0 Ac tive tabletIndications: tablet by 0 Dizziness mouth 3 (three) times daily as needed for Dizziness. PREDNISONE Take 20 mg 0 02/19/20 Disconti nued ORALIndications: pt by mouth 20 (Therapy takes this med at hs daily. completed) Indications: pt takes this med at hs brompheniramine-pseud Take 10 mL 120 mL 0 0 Discontinued oephedrine-DM by mouth 4 0 20 (Ther apy (BROMFED DM) 2-30-10 (four) times completed) mg/5 mL daily as syrupIndications: needed for Cough Cough. Bismuth Subsalicylate Take 1 30 tablet 1 02/19/20 Discontinued (PEPTO-BISMOL) 262 mg tablet by 0 20 (Therapy tabletIndications: mouth 4 c ompleted) Diarrhea, unspecified (four) times type daily as needed (diarrhea). documented as of this encounter (statuses as [...] of this encounter Last Filed Vital Signs Vital Sign Reading Time Taken Comments Blood Pressure 108/72 02/19/2020 3:46 PM CDT Pulse 81 02/19/2020 3:46 PM CDT Temperature 36.7 C (98 F) 02/19/2020 3:46 PM CDT Respiratory Rate 18 02/19/2020 3:46 PM CDT Oxygen Saturation 93% 02/19/2020 3:46 PM CDT Inhaled Oxygen Concentration - - Weight 91.7 kg (202 lb 3.2 oz) 02/19/2020 3:46 PM CDT Height 180.3 cm (5' 11") 02/19/2020 3:46 PM CDT Body Mass Index 28.2 02/19/2020 3:46 PM CDT documented in this encounter Patient Instructions Patient InstructionsVijay Dior MD - 02/19/2020 3:20 PM CDT Patient Education Managing Dizziness (Vertigo) with Medicines Although medicines can't cure all of your problems, they can help control your symptoms. Your doctormay prescribe medicines for a few weeks and then taper them off. Always take your medicine as prescribed. Never share your medicine with others. Contact your healthcare provider right away if you have side effects from your medicines. Before using a new mhfa-xuy-ioyzhkh medicine, check with your healthcare provider or the pharmacist to be certain there won't be an interaction with other medicines you are taking. How medicines can help Treat infection or inflammation. If you have an infection caused by bacteria, your doctor can prescribe antibiotics. Limit conflicting balance signals. These medicines are often in pill form. Ease nausea. Suppositories, pills, or shots can reduce vomiting. Reduce pressure in the canals. Diuretics can be used to treat Mnire's disease. These medicines help your body get rid of extra fluid. Ease other symptoms. Other medicines can help ease depression and anxiety caused by living with dizziness or fainting. [employer] last reviewed this educational content on 03/23/201919991842-4423 [employer]. [address] [place] [address], [place] [address]. All rights reserved. This information is not intended as a substitute for professional medical care. Always follow your healthcare professional's instructions. documented in this encounter Progress Notes Vijay Dior MD - 02/19/2020 3:20 PM CDT Cc: Chief Complaint Patient presents with Dizziness Hypertension SMOKING Lauri Redmond is a 44 year old male who has a past medical history of Acid reflux, Anesthesia complication, Chronic neck and back pain, Hypertension, and Obese. Patient present with c/o dizziness, reports he felt like "passing out" while walking to the store, denies being exposed to the sun for extended duration of time. Patient has hx HTN, was non-compliant in the past with hx Hypertensive urgency. Current BP is controlled on arrival to the clinic today, 108/72, denies CP, palpitations of SOB/JALLOH st this time, but note intermittent CP in the past while BP was not well controlled. Patient is currently on Amlodipine 10mg qDay with Lisinopril - HCTZ 12 - 12.5mg qDay an Metoprolol Succinate XL 25mg qDay. Patient dies not have a car, he walks everywhere he goes, sometime in the sun. Patient is a an every smoker, currently smokes 1.5 PPD, defers on pharmacotherapy at this time. Patient denies F/C, fall or loss of consciousness. Patient denies alcohol or illicit drug use. Allergies Lauri is allergic to lortab [hydrocodone-acetaminophen]. Medications Outpatient Medications Prior to Visit Medication Sig Dispense Refill OMEPRAZOLE 40 mg capsule TAKE 1 CAPSULE BY MOUTH EVERY DAY 90 capsule 0 HYDROcodone-acetaminophen 7.5-325 mg per tablet Take 0.5 tablets by mouth every 4 (four) hours. lisinopril-hydrochlorothiazide 20-12.5 mg per tablet Take 2 tablets by mouth every evening. 60 tablet 12 acetaminophen 650 mg CR tablet Take 1 tablet by mouth every 8 (eight) hours as needed for Pain or Fever. 20 tablet 0 amLODIPine 10 mg tablet Take 1 tablet by mouth daily. 90 tablet 1 metoprolol succinate XL 25 mg 24 hr tablet Take 25 mg by mouth daily. Bismuth Subsalicylate (PEPTO-BISMOL) 262 mg tablet Take 1 tablet by mouth 4 (four) times daily as needed (diarrhea). 30 tablet 1 ineaxdiawygopyz-tybdpucywfzoxdn-DB (BROMFED DM) 2-30-10 mg/5 mL syrup Take 10 mL by mouth 4 (four) times daily as needed for Cough. 120 mL 0 PREDNISONE ORAL Take 20 mg by mouth daily. Indications: pt takes this med at hs ceFAZolin (ANCEF) 1,000 mg in NaCl 0.9% (NS) 50 mL piggyback No facility-administered medications prior to visit. Histories Past Medical History: Diagnosis Date Acid reflux Anesthesia complication Pt states he wakes up aggressive Chronic neck and back pain Hypertension Obese Past Surgical History: Procedure Laterality Date CHOLECYSTECTOMY EYE SURGERY Left LUMBAR EPIDURAL STEROID INJECTION N/A 12/11/2016 Surgeon: Brice Lu MD; Location: [facility] OR Location LUMBAR EPIDURAL STEROID INJECTION N/A 12/25/2016 Surgeon: Brice Lu MD; Location: [facility] OR Location LUMBAR EPIDURAL STEROID INJECTION N/A 01/01/2017 Surgeon: Brice Lu MD; Location: [facility] OR Location LUMBAR EPIDURAL STEROID INJECTION N/A 10/15/2017 Surgeon: Brice Lu MD; Location: [facility] OR Location MAXILLOMANDIBULAR FRACTURE ORIF Social History Socioeconomic History Marital status: Single Spouse name: Not on file Number of children: Not on file Years of education: Not on file Highest education level: Not on file Occupational History Not on file Social Needs Financial resource strain: Not on file Food insecurity Worry: Not on file Inability: Not on file Transportation needs Medical: Not on file Non-medical: Not on file Tobacco Use Smoking status: Current Every Day Smoker Packs/day: 1.50 Types: Cigarettes Smokeless tobacco: Never Used Substance and Sexual Activity Alcohol use: Yes Comment: Occasional Drinker Drug use: No Sexual activity: Not on file Lifestyle Physical activity Days per week: Not on file Minutes per session: Not on file Stress: Not on file Relationships Social connections Talks on phone: Not on file Gets together: Not on file Attends denominational service: Not on file Active member of club or organization: Not on file Attends meetings of clubs or organizations: Not on file Relationship status: Not on file Intimate partner violence Fear of current or ex partner: Not on file Emotionally abused: Not on file Physically abused: Not on file Forced sexual activity: Not on file Other Topics Concern Not on file Social History Narrative Not on file History reviewed. No pertinent family history. Review of Systems Constitutional: Negative for fatigue. Eyes: Negative for visual disturbance. Respiratory: Negative for cough. Cardiovascular: Negative for chest pain, palpitations and leg swelling. Hx intermittent CP when BP was not controlled Gastrointestinal: Negative for constipation and diarrhea. Neurological: Positive for dizziness. Negative for tremors, weakness and headaches. Vital Signs BP 108/72 (BP Location: Right arm, Patient Position: Sitting, BP CUFF SIZE: Adult Medium) | Pulse 81 | Temp 36.7 C (98 F) (Temporal Artery) | Resp 18 | Ht 5' 11" (1.803 m) | Wt 202 lb 3.2 oz (91.7 kg) | SpO2 93% | BMI 28.20 kg/m Physical Exam Constitutional: He is oriented to person, place, and time. No distress. HENT: Head: Normocephalic and atraumatic. Nose: No mucosal edema or rhinorrhea. Mouth/Throat: Uvula is midline and mucous membranes are normal. Eyes: Pupils are equal, round, and reactive to light. EOM are normal. Neck: Normal range of motion. Neck supple. Cardiovascular: Normal rate, regular rhythm and normal heart sounds. Pulmonary/Chest: Effort normal and breath sounds normal. Abdominal: Soft. Bowel sounds are normal. Musculoskeletal: Normal range of motion. Neurological: He is alert and oriented to person, place, and time. Skin: Skin is warm. Capillary refill takes less than 2 seconds. Psychiatric: He has a normal mood and affect. His behavior is normal. Nursing note and vitals reviewed. Assessment/Plan Essential hypertension - Patient has Hx Hypertensive urgency, intermittent CP and non compliance with medication. BP currently controlled on arrival, notes dizziness while walking to the store - Continue on Metoprolol Succinate XL, Amlodipine and Lisinopril -HCTZ. Encouraged to adopt DASH diet plan, and keep home BP log. - Labs as ordered - XR CHEST 2 VW; Future - EKG-12 LEAD ROUTINE - ECHO ROUTINE W/DOPPLER COLOR Preferred Location: [facility]; Future - CONSULT/REFERRAL CARDIOLOGY Dizziness - Advised to avoid excessive exposure to sun and maintain good hydration - Meclizine 12.5mg TID PRN, monitor Tobacco dependence - Currently smoked 1.5 PPD, defers on pharmacotherapy. Benefits of smoking cessation discussed > 10 mins Preventive Care: Medication reconciliation, patient education and anticipatory guidance completed. All questions and concerns addressed. AVS given, handout provided. Return in about 4 weeks (around 03/18/2020), or if symptoms worsen or fail to improve. Vijay Dior MD, MPH, AASCVS Clinical Rn Corrections, Department of Family Medicine [facility] 02/19/2020 4:32 PM documented in this encounter Plan of Treatment Date Type Specialty Care Team Description 03/04/2020 Office Visit Cardiology Sivakumar Walden M D [address] [place] [address] [address] [place] [id number] 15 03/23/2020 Office Visit Family Medicine Vijay Dior MD [address] [place] [address] Dr Alfaro [address] [place], [place] [address] [phone] Name Type Priority Associated Diagnoses Order S chedule FREE T4 LAB STAT Essential Expected: hypertension 02/19/2020, Intermittent chest Expires: pain 02/18/2021 Dizziness FREE T3 LAB STAT Essential Expected: hypertension 02/19/2020, Intermittent chest Expires: pain 02/18/2021 Dizziness CBC WITH DIFF LAB STAT Essential Expected: hypertension 02/19/2020, Intermittent chest Expires: pain 02/18/2021 Dizziness COMP. METABOLIC PANEL LAB STAT Essential Expect ed: ([id number]) hypertension 02/19/2020, Intermittent chest Expires: pain 02/18/2021 Dizziness LIPID PANEL LAB STAT Essential Expected: ([id number])(TOTAL hypertension 02/19/2020, CHOLESTEROL, Intermittent chest Expires: TRIGLYCERIDES, HDL) pain 02/18/2021 Dizziness GLYCOSYLATED HEMOGLOBIN LAB STAT Essential Expe cted: (A1C) hypertension 02/19/2020, Intermittent chest Expires: pain 02/18/2021 Dizziness PROTHROMBIN TIME / INR LAB STAT Essential Expec sg: hypertension 02/19/2020, Intermittent chest Expires: pain 02/18/2021 Dizziness THYROID STIMULATING LAB STAT Essential Expected : HORMONE hypertension 02/19/2020, Intermittent chest Expires: pain 02/18/2021 Dizziness TROPONIN I LAB STAT Essential Expected: hypertension 02/19/2020, Intermittent chest Expires: pain 02/18/2021 Dizziness N-TERMINAL PRO-BNP LAB STAT Essential Expected: hypertension 02/19/2020, Intermittent chest Expires: pain 02/18/2021 Dizziness XR CHEST 2 VW IMAGING Routine Essential Expected: hypertension 02/19/2020, Intermittent chest Expires: pain 02/18/2021 Dizziness EKG-12 LEAD ROUTINE HEART STATION STAT Essential Ordered : hypertension 02/19/2020 Intermittent chest pain Dizziness Health Maintenance Due Date Last Done Comments PNEUMOCOCCAL 0-64 YEARS COMBINED SERIES (1 of - 1980 PPSV23) DTaP,Tdap,and Td Vaccines (1 - Tdap) 1993 INFLUENZA VACCINE (#1) 2020 Depression Screening 02/18/2021 02/19/2020 Colorectal Cancer Screening 2024 documented as of this encounter Results Not on filedocumented in this encounter Visit Diagnoses Diagnosis Essential hypertension - Primary Unspecified essential hypertension Intermittent chest pain Chest pain, unspecified Dizziness Dizziness and giddiness Tobacco dependence Tobacco use disorder documented in this encounter Insurance Payer Benefit Plan / Subscriber ID Effective Dates Phone Addre ss Type Group [facility] [id number] 2018-Pres[place] Medicaid COMM PLAN - PLUS t MANAGED MEDICAID documented as of this encounter
--- OUTSIDE RECORDS SUMMARY | 2020-03-11 19:21 | XMS REPORT | Summary of Care ---
:[address] [facility] Address [address] [place] [address] Care Team Providers Name Role Phone Ata Parson MD Primary Care Provider [phone] Encounter Details Date Type Department Care Team Description 02/19/[address] [facility] Doctor Unassigned, No [address] [facility] [place] [address] [address] [place] [address] Allergies Active Allergy Reactions Severity Noted Date Comments Hydrocodone-Acetaminophen Nausea and/or Vomiting Low 12/07 documented as of this encounter (statuses as of 02/19/2020) Medications Medication Sig Dispensed Refills Start Date [...] by mouth every tabletIndications: evening. Essential hypertension OMEPRAZOLE 40 mg TAKE 1 CAPSULE 90 capsule 0 02/13/2020 Active capsuleIndications: BY MOUTH EVERY Gastroesophageal reflux DAY disease without esophagitis documented as of this encounter (statuses as of 02/19/2020) Active Problems Problem Noted Date Hypertensive urgency 11/13/2019 Cough 11/13/2019 Diarrhea, unspecified type 11/13/2019 Other headache syndrome 11/13/2019 Suspected Covid-19 Virus Infection 11/13/2019 Tobacco dependence 11/13/2019 Anesthesia complication Overview: Pt states he wakes up aggressive Hypertension Chronic neck and back pain Acid reflux documented as of this encounter (statuses as of 02/19/2020) Social History Tobacco Use Types Packs/Day Years Used Date Current Every Day Smoker Cigarettes 1.5 Smokeless Tobacco: Never Used Alcohol Use Drinks/Week oz/Week Comments Yes Occasional Drink er Sex Assigned at Date Recorded Not on file Job Start Date Occupation Industry Not on file Not on file Not on file Travel History Travel Start Travel End No recent travel history available. COVID-19 Exposure Response Date Recorded In the last month, have you been in contact with No / Unsure 02/19/2020 3:22 PM CDT someone who was confirmed or suspected to have Coronavirus / COVID-19? documented as of this encounter Last Filed Vital Signs Not on filedocumented in this encounter Plan of Treatment Health Maintenance Due Date Last Done Comments PNEUMOCOCCAL 0-64 YEARS COMBINED SERIES (1 of 1 - 1980 PPSV23) DTaP,Tdap,and Td Vaccines (1 - Tdap) 1985 Depression Screening 1986 INFLUENZA VACCINE (#1) 2020 documented as of this encounter Procedures Procedure Name Priority Date/Time Associated Diagnosis Comme nts ASSIGNMENT OF BENEFITS Routine 02/19/2020 3:25 PM CDT documented in this encounter Results Not on filedocumented in this encounter Insurance Payer Benefit Plan / Subscriber ID Effective Dates Phone [facility] x[facility] 2018-Pres[place] Medicaid COMM PLAN - PLUS t MANAGED MEDICAID documented as of this encounter
--- OUTSIDE RECORDS SUMMARY | 2020-03-11 19:21 | XMS REPORT | Summary of Care ---
:1975 Author Organization [facility] Address [address] [place] [address] Care Team Providers Name Role Phone Ata Parson MD Primary Care Provider [phone] Reason for Visit Reason Comments Refill Request Encounter Details Date Type Department Care Team Description 02/24/2020 Refill [facility] Family Medicine Ata Yu MD Refill Request - [address] [place] [facility] [place] [address] [place] [address] [phone] Allergies Active Allergy Reactions Severity Noted Date Comments Hydrocodone-Acetaminophen Nausea and/or Vomiting Low 12/07 documented as of this encounter (statuses as of 02/24/2020) Medications Medication Sig Dispensed Refills Start End Date Status Date metoprolol succinate XL Take 25 mg 0 Active 25 mg 24 hr tablet by mouth daily. acetaminophen 650 mg CR Take 1 20 tablet 0 Active tabletIndications: tablet by 0 Other headache syndrome mouth every 8 (eight) hours as needed for Pain or Fever. amLODIPine 10 mg Take 1 90 tablet 1 Act chuck tabletIndications: tablet by 0 Hypertensive urgency mouth daily. HYDROcodone-acetaminoph Take 0.5 0 Active en 7.5-325 mg per tablets by tablet mouth every 4 (four) hours. OMEPRAZOLE 40 mg TAKE 1 90 capsule 0 Ac tive capsuleIndications: CAPSULE BY 0 Gastroesophageal reflux MOUTH EVERY disease without DAY esophagitis meclizine 12.5 mg Take 1 90 tablet 0 Ac tive tabletIndications: tablet by 0 Dizziness mouth 3 (three) times daily as needed for Dizziness. lisinopril 40 mg Take 1 30 tablet 12 Act chuck tabletIndications: tablet by 0 Essential hypertension mouth daily. hydroCHLOROthiazide 25 Take 1 30 tablet 12 Active mg tabletIndications: tablet by 0 Essential hypertension mouth daily. lisinopril-hydrochlorot Take 2 60 tablet 12 Discontinued hiazide 20-12.5 mg per tablets by 0 20 (Dose tabletIndications: mouth every adjustment) Essential hypertension evening. documented as of this encounter (statuses as [...] Visit Cardiology Sivakumar Walden M D [address] [facility] [address] [place], [place] [address] 03/23/2020 Office Visit Family Medicine Vijay Dior MD [address] [place] [address] Dr Alfaro [address] [place], [place] [address] Health Maintenance Due Date Last Done Comments PNEUMOCOCCAL 0-64 YEARS COMBINED SERIES ( - 1980 PPSV23) DTaP,Tdap,and Td Vaccines (1 - Tdap) 1993 INFLUENZA VACCINE (#1) 2020 Depression Screening 02/18/2021 02/19/2020 Colorectal Cancer Screening 2024 documented as of this encounter Results Not on filedocumented in this encounter Visit Diagnoses Diagnosis Essential hypertension Unspecified essential hypertension documented in this encounter Insurance Payer Benefit Plan / Subscriber ID Effective Dates Phone Addre ss [facility] [id number] 2018-[employer] Medicaid COMM PLAN - PLUS t MANAGED MEDICAID documented as of this encounter
--- OUTSIDE RECORDS SUMMARY | 2020-03-11 19:21 | XMS REPORT | Summary of Care ---
:1975 Author Organization [facility] Address [address] [place] [id number] Care Team Providers Name Role Phone Ata Pasron MD Primary Care Provider [phone] Reason for Referral (Routine) Status Reason Specialty Diagnoses / Referred By Referred To Procedures Contact Contact New Request Vascular Surgery Diagnoses Pain in both lower extremities Sivakumar Walden, Procedures TITA MULTI LEVEL BY VASCULAR LAB [address] [place] [address] [address] [place] [address] Reason for Visit Reason Comments New Patient Chest Pain, HTN, Dizziness Encounter Details Date Type Department Care Team Description 03/04/2020 Office Visit [facility] Sivakumar Walden M D Intermittent chest pain (Primary Dx); Cardiology- [address] Essential hypertension; [address] [place] [address] DRIVE Pain in both lower extremities; Drive, [address] Cigarette smoker [place], [place] [id number] [phone] Allergies Active Allergy Reactions Severity Noted Date Comments Hydrocodone-Acetaminophen Nausea and/or Vomiting Low 12/07 documented as of this encounter (statuses as of 03/04/2020) Medications Medication Sig Dispensed Refills Start End Date Status Date metoprolol succinate XL Take 25 mg 0 Active 25 mg 24 hr tablet by mouth daily. amLODIPine 10 mg Take 1 90 tablet [...] tablet by 0 Essential hypertension mouth daily. citalopram 20 mg tablet Take 20 mg 0 Active by mouth daily. ARIPiprazole 10 mg Take 10 mg 0 Active tablet by mouth daily. traZODone 50 mg tablet Take 50 mg 0 Active by mouth at bedtime. acetaminophen 650 mg CR Take 1 20 tablet 0 Discontinued tabletIndications: tablet by 0 20 ( Therapy Other headache syndrome mouth every completed) 8 (eight) hours as needed for Pain or Fever. documented as of this encounter (statuses as of 03/04/2020) Active Problems Problem Noted Date Dizziness 02/19/2020 Intermittent chest pain 02/19/2020 Hypertensive urgency 11/13/2019 Cough 11/13/2019 Diarrhea, unspecified type 11/13/2019 Other headache syndrome 11/13/2019 Suspected Covid-19 Virus Infection 11/13/2019 Tobacco dependence 11/13/2019 Anesthesia complication Overview: Pt states he wakes up aggressive Hypertension Chronic neck and back pain Acid reflux documented as of this encounter (statuses as of 03/04/2020) Social History Tobacco Use Types Packs/Day Years Used Date Current Every Day Smoker Cigarettes 1.5 Smokeless Tobacco: Never Used Alcohol Use Drinks/Week oz/Week Comments Yes Occasional Drink er Sex Assigned at Date Recorded Not on file COVID-19 Exposure Response Date Recorded In the last month, have you been in contact with No / Unsure 03/04/2020 11:42 AM CDT someone who was confirmed or suspected to have Coronavirus / COVID-19? documented as of this encounter Last Filed Vital Signs Vital Sign Reading Time Taken Comments Blood Pressure 131/88 03/04/2020 11:46 AM CDT Pulse 81 03/04/2020 11:46 AM CDT Temperature - - Respiratory Rate 19 03/04/2020 11:46 AM CDT Oxygen Saturation 94% 03/04/2020 11:46 AM CDT Inhaled Oxygen Concentration - - Weight 90.5 kg (199 lb 9.6 oz) 03/04/2020 11:46 AM CDT Height 180.3 cm (5' 11") 03/04/2020 11:46 AM CDT Body Mass Index 27.84 03/04/2020 11:46 AM CDT documented in this encounter Progress Notes Sivakumar Walden MD - 03/04/2020 10:40 AM CDT CARDIOLOGY CLINIC NOTE 03/04/2020 Reason for Referral/Presenting Complaint: chest pain and leg pain PCP: Ata Parson History of Present Illness: Lauri Redmond is a 44 years old male with history of current smoker and HTN. Chest pain--varies in location. Left or right sided, around ribcage, sharp pain, lasting hours, worse with deep breath, about every other day, associated with racing heart, non exertional. Leg pain--amato pain, non exertional. Feeling legs weak. Smoking--30 yrs, 1.5 ppd. Cardiovascular testing: EKG: Normal sinus rhythm. Normal EKG. Review of Systems: General: (-) fever, (-) chills, (-) weight change, (-) dizziness, (-) fatigue Skin: (-) rash HEENT: (-) headache, (-) change in vision Neck: (-) difficulty swallowing Heme: negative Resp: (-) cough, (-) dyspnea on exertion Cardio: (+) chest pain, (-) palpitations, (-) syncope GI: (-) vomiting, (-) diarrhea : negative Endo: (-) diabetes, (-) thyroid disease Neuro: (-) numbness, (-) tingling, (-) weakness Back: (-) pain JIMMY: (-) muscle pain, (-) claudication Psych: (-) anxiety, (-) depression Past Medical History: Past Medical History: Diagnosis Date Acid reflux Anesthesia complication Pt states he wakes up aggressive Chronic neck and back pain Hypertension Obese Current Medications: Current Outpatient Medications Medication Sig Dispense Refill ARIPiprazole 10 mg tablet Take 10 mg by mouth daily. citalopram 20 mg tablet Take 20 mg by mouth daily. traZODone 50 mg tablet Take 50 mg by mouth at bedtime. hydroCHLOROthiazide 25 mg tablet Take 1 tablet by mouth daily. 30 tablet 12 lisinopril 40 mg tablet Take 1 tablet by mouth daily. 30 tablet 12 meclizine 12.5 mg tablet Take 1 tablet by mouth 3 (three) times daily as needed for Dizziness. 90 tablet 0 OMEPRAZOLE 40 mg capsule TAKE 1 CAPSULE BY MOUTH EVERY DAY 90 capsule 0 HYDROcodone-acetaminophen 7.5-325 mg per tablet Take 0.5 tablets by mouth every 4 (four) hours. amLODIPine 10 mg tablet Take 1 tablet by mouth daily. 90 tablet 1 metoprolol succinate XL 25 mg 24 hr tablet Take 25 mg by mouth daily. No current facility-administered medications for this visit. Social History: Social History Socioeconomic History Marital status: Single [...] file Gets together: Not on file Attends buddhism service: Not on file Active member of [...] file Social History Narrative Not on file Family History Family History Problem Relation Age of Onset No Significant Medical Problems Mother No Significant Medical Problems Father Physical Examination: BP 131/88 (BP Location: Left arm, Patient Position: Sitting, BP CUFF SIZE: Adult Large) | Pulse 81| Resp 19 | Ht 5' 11" (1.803 m) | Wt 199 lb 9.6 oz (90.5 kg) | SpO2 94% | BMI 27.84 kg/m Constitutional: alert and oriented x 3 (person, place and date/time); no apparent distress ENT: normocephalic atraumatic, supple, no lymphadenopathy, no bruits, no JVD Lungs: clear to auscultation bilaterally Cardiovascular: S1, S2 normal, regular; no murmurs, rubs or gallops GI: soft; non-tender; non-distended; normoactive bowel sounds : not examined Musculoskeletal: Extremities: no clubbing, cyanosis, or edema Skin: no rashes Neuro: no focal deficits Assessment/Plan: ICD-10-CM ICD-9-CM 1. Intermittent chest pain R07.9 786.50 2. Essential hypertension I10 401.9 3. Pain in both lower extremities M79.604 729.5 M79.605 4. Cigarette smoker F17.210 305.1 Chest pain--Non anginal. Suspect non cardiac. Will get ECHO to assess structural heart disease. Leg pain--Palpable pulses. Given smoking history, will get TITA to assess PAD. HTN--the control is acceptable. Patient was counseled for lifestyle modifications including: diet, exercise and smoking cessation Thank you for allowing us to participate in the care of your patient. Please feel free to contact usfor any questions or if we can be of further assistance. Sivakumar Walden MD, [facility], [facility] Cold Type Composing Machine Operator, Division of Cardiology [facility] documented in this encounter Plan of Treatment Date Type Specialty Care Team Description 03/15/2020 Laboratory Only Cardiology Pc, Adc Echo Room 1 - 03/23/2020 Office Visit Family Medicine Vijay Dior MD [address] [place] [address] Dr Alfaro [address] [place] [address] [phone] Health Maintenance Due Date Last Done Comments PNEUMOCOCCAL 0-64 YEARS COMBINED SERIES (1 of - 1980 PPSV23) DTaP,Tdap,and Td Vaccines (1 - Tdap) 1993 INFLUENZA VACCINE (#1) 2020 Depression Screening 02/18/2021 02/19/2020 Colorectal Cancer Screening 2024 documented as of this encounter Results Not on filedocumented in this encounter Visit Diagnoses Diagnosis Intermittent chest pain - Primary Chest pain, unspecified Essential hypertension Unspecified essential hypertension Pain in both lower extremities Cigarette smoker Tobacco use disorder documented in this encounter Insurance Payer Benefit Plan / Subscriber ID Effective Dates Phone Addre ss Type Group [facility] [id number] 2018-[place] Medicaid COMM PLAN - PLUS t MANAGED MEDICAID documented as of this encounter
--- OUTSIDE RECORDS SUMMARY | 2020-03-11 19:21 | XMS REPORT | Summary of Care ---
:1975 Author Organization [facility] Address [address] [place] [address] Care Team Providers Name Role Phone Ata Parson MD Primary Care Provider [phone] Reason for Referral (Routine) Status Reason Specialty Diagnoses / Referred By Referred To Procedures Contact Contact New Request Cardiology Diagnoses Essential hypertension Intermittent chest pain Dizziness Vijay Dior, Procedures ECHO ROUTINE W/DOPPLER COLOR Preferred Location: [facility] [address] [place] [address] Dr Alfaro [address] [place] [address] [phone] (Routine) Status Reason Specialty Diagnoses / Referred By Referred To Procedures Contact Contact New Request Cardiology Diagnoses Essential hypertension Intermittent chest pain Dizziness Vijay Dior, Procedures CONSULT/REFERRAL CARDIOLOGY [address] [place] [address] Dr Alfaro [address] [place] [phone] Reason for Visit Reason Comments Dizziness Hypertension SMOKING Encounter Details Date Type Department Care Team Description 02/19/2020 Office Visit [facility] Pediatric Vijay Dior E ssential hypertension (Primary Dx); and Adult Primary MD Intermittent chest pain; Care- [address] Antunez; [address] [place] [address] [place] [address] [place], [place] [phone] [address] [phone] Allergies Active Allergy Reactions Severity Noted Date [...] from your medicines. Before using a new dtfh-kct-juzhkmd medicine, check with your healthcare provider or [...] caused by living with dizziness or fainting. [employer] last reviewed this educational content on 03/23/201919994911-2176 [employer]. [address] [place] [address], [place] [address]. All rights reserved. This information is not [...] daily as needed (diarrhea). 30 tablet 1 imuomeptuljmtdl-wjenkteslbcjrep-GW (BROMFED DM) 2-30-10 mg/5 mL syrup Take [...] N/A 12/11/2016 Surgeon: Brice Lu MD; Location: [facility] OR Location LUMBAR EPIDURAL STEROID INJECTION N/A 12/25/2016 Surgeon: Brice Lu MD; Location: [facility] OR Location LUMBAR EPIDURAL STEROID INJECTION N/A 01/01/2017 Surgeon: Brice Lu MD; Location: [facility] OR Location LUMBAR EPIDURAL STEROID INJECTION N/A 10/15/2017 Surgeon: Brice Lu MD; Location: [facility] OR Location MAXILLOMANDIBULAR FRACTURE ORIF Social History [...] file Gets together: Not on file Attends moravian service: Not on file Active member of [...] - ECHO ROUTINE W/DOPPLER COLOR Preferred Location: [facility]; Future - CONSULT/REFERRAL CARDIOLOGY Dizziness - [...] fail to improve. Vijay Dior MD, MPH, AAMIVS Clinical Sourcing Associate, Department of Family Medicine [facility] Primary & Specialty Care - ADC 02/19/2020 4:32 PM documented in this encounter Plan of Treatment Date Type Specialty Care Team Description 03/04/2020 Office Visit Cardiology Sivakumar Walden M D [address] [place] [address] [address] [place] [phone] 03/23/2020 Office Visit Family Medicine Vijay Dior MD [address] [place] [address] Dr [address] [place], [place] [address] [phone] Name Type Priority Associated Diagnoses Order S chedule FREE T4 LAB STAT Essential Expected: hypertension 02/19/2020, Intermittent chest Expires: pain 02/18/2021 Dizziness FREE T3 LAB STAT Essential Expected: hypertension 02/19/2020, Intermittent chest Expires: pain 02/18/2021 Dizziness CBC WITH DIFF LAB STAT Essential Expected: hypertension 02/19/2020, Intermittent chest Expires: pain 02/18/2021 Dizziness COMP. METABOLIC PANEL LAB STAT Essential Expect ed: ([id number]) hypertension 02/19/2020, Intermittent chest Expires: pain 02/18/2021 Dizziness LIPID PANEL LAB STAT Essential Expected: ([id number])(TOTAL hypertension 02/19/2020, CHOLESTEROL, Intermittent chest Expires: TRIGLYCERIDES, [...] Effective Dates Phone Addre ss Type Group [facility] [id number] 2018-[employer] Medicaid COMM PLAN - PLUS t MANAGED MEDICAID documented as of this encounter
--- OUTSIDE RECORDS SUMMARY | 2020-03-11 19:22 | XMS REPORT | Summary of Care ---
:1975 Author Organization [facility] - [facility] Address [address] [place] [address] Care Team Providers Name Role Phone Ata Parson MD Primary Care Provider [phone] Reason for Referral (Routine) Status Reason Specialty Diagnoses / Referred By Referred To Procedures Contact Contact New Request Vascular Surgery Diagnoses Pain in both lower extremities Sivakumar Walden, Procedures TITA MULTI LEVEL BY VASCULAR LAB [address] [place] [address] [address] [place] [address] Reason for Visit Reason Comments New Patient Chest Pain, HTN, Dizziness Encounter Details Date Type Department Care Team Description 03/04/2020 Office Visit [facility] Sivakumar Walden M D Intermittent chest pain (Primary Dx); Cardiology- [address] Essential hypertension; [address] [place] [address] DRIVE Pain in both lower extremities; Drive, [address] Cigarette smoker [place], [place] [phone] [phone] Allergies Active Allergy Reactions Severity Noted Date [...] file Gets together: Not on file Attends yarsani service: Not on file Active member of [...] be of further assistance. Sivakumar Walden MD, [facility] Collection Systems Modeler, Division of Cardiology [facility] documented in this encounter Plan of Treatment Date Type Specialty Care Team Description 03/15/2020 Laboratory Only Cardiology Pc, Adc Echo Room 1 - 03/23/2020 Office Visit Family Medicine Vijay Dior MD [address] [place] [address] Dr Alfaro [address] [place] [address] [phone] Health Maintenance Due Date Last Done Comments [...] Effective Dates Phone Addre ss Type Group [facility] [id number] 2018-[employer] Medicaid COMM PLAN - PLUS t MANAGED MEDICAID documented as of this encounter
[2020-03-11 20:00] LABS: Absolute Lymphocytes (CBC) 1.7 K/uL (0.7-4.9); Basophils % 0.8 % (0-1.3); Hematocrit 43.3 % (39.6-49.0); Lymphocytes % 16.6 % (15.3-44.8); RBC Red Blood Cell Count 5.13 M/uL (4.33-5.43)
[2020-03-11 20:04] LABS: Protime INR 0.92
--- NOTE | 2020-03-11 20:18 | RAD REPORT ---
EXAM DESCRIPTION: RAD - Chest Single View - 03/11/2020 8:04 pm CLINICAL HISTORY: CHEST PAINchest pain, left shoulder pain COMPARISON: Chest exam October 2013 TECHNIQUE: AP portable chest image was obtained 03/11/2020 8:04 pm . FINDINGS: No peripheral mass or consolidation. No failure or volume overload. Interstitial pattern i s not clearly different from comparison. Heart and vasculature are normal. No measurable pleural effu vianney and no pneumothorax. No acute bony abnormality seen. No acute aortic findings suspected. IMPRESSION: No acute cardiopulmonary process. No significant change from comparison.
[2020-03-11 20:33] LABS: ALT/SGPT 28 U/L (12-78); AST/SGOT 14 U/L (15-37); Albumin 3.4 g/dL (3.4-5.0); Alkaline Phosphatase 76 U/L (45-117); BUN Blood Urea Nitrogen 13 mg/dL (7-18); Bicarbonate 28 mmol/L (21-32); Bilirubin Direct 0.1 mg/dL (0-0.2); Bilirubin Total 0.2 mg/dL (0.2-1.0); Glucose Level 109 mg/dL (74-106); Magnesium 2.4 mg/dL (1.8-2.4); NT PRO-BNP 29 pg/mL (<125); Potassium 4.1 mmol/L (3.5-5.1); Protein, Total 7.6 g/dL (6.4-8.2); Sodium Level 137 mmol/L (136-145); Troponin (Emerg Dept Use Only) < 0.02 ng/mL (0.0-0.045)
[2020-03-11 21:01] LABS: Urine Blood NEGATIVE (NEG); Urine Glucose NEGATIVE (NEG); Urine Protein NEGATIVE (NEG); Urine Specific Gravity 1.015 (1.005-1.030)
[2020-03-11 21:12] LABS: Barbiturates NEGATIVE (NEGATIVE); Benzodiazepines NEGATIVE (NEGATIVE); Cocaine NEGATIVE (NEGATIVE); METHAMPHETAM NEGATIVE (NEGATIVE); Methadone NEGATIVE (NEGATIVE); Opiates NEGATIVE (NEGATIVE); Phencyclidine NEGATIVE (NEGATIVE); THC Cannibis NEGATIVE (NEGATIVE)
--- NOTE | 2020-03-11 23:28 | EDPHYS ---
Physician Documentation [facility] Name: Lauri Redmond Age: 44 yrs Sex: Male : 1975 Arrival Date: 03/11/2020 Time: 19:21 Bed 8 Private MD: ED Physician Miki Gayle HPI: 03/11 19:54 This 44 yrs old Male presents to ER via EMS with complaints of Chest Pain. mh7 19:54 The patient or guardian reports chest pain that is located primarily in the anterior mh7 chest wall, left. Onset: today. 19:57 Onset: at 18:00. The pain radiates to the left shoulder. mh7 19:58 Associated signs and symptoms: Pertinent negatives: abdominal pain, cough, diaphoresis, mh7 dizziness, headache, lower extremity pain, lower extremity swelling, lightheadedness, nausea, near syncope, palpitations, recent travel, shortness of breath, syncope, vomiting. The chest pain is described as sharp. 19:59 Duration: The patient or guardian reports multiple episodes, that are intermittent, mh7 that wax and wane, with no pattern. Modifying factors: The symptoms are alleviated by nothing. the symptoms are aggravated by nothing. Severity of pain: At its worst the pain was moderate today, in the emergency department the pain has improved moderately. EMS care prior to arrival includes: aspirin. Historical: - Allergies: 19:15 "basically any generic thing for pain"; ph 19:15 Tylenol; ph 19:15 Vicodin; ph 19:15 Hydrocodone-Acetaminophen; ph 19:15 lortab; ph - Home Meds: 19:15 lisinopril-hydrochlorothiazide Oral [Active]; Metoprolol Tartrate Oral [Active]; ph Naproxen Oral [Active]; Prednisone Oral [Active]; - PMHx: 19:15 Back pain; Hypertension; ph - PSHx: 19:15 Cholecystectomy; right jaw; ph - Immunization history:: Adult Immunizations up to date. - Social history:: Smoking status: Patient reports the use of cigarette tobacco products, unknown amount Patient uses alcohol, When I want to. street drugs, marijuana. ROS: 19:59 Constitutional: Negative for fever, chills, and weight loss, Eyes: Negative for injury, mh7 pain, redness, and discharge, ENT: Negative for injury, pain, and discharge, Neck: Negative for injury, pain, and swelling, Respiratory: Negative for shortness of breath, cough, wheezing, and pleuritic chest pain, Abdomen/GI: Negative for abdominal pain, nausea, vomiting, diarrhea, and constipation, Back: Negative for injury and pain, : Negative for injury, bleeding, discharge, and swelling, Skin: Negative for injury, rash, and discoloration, Neuro: Negative for headache, weakness, numbness, tingling, and seizure, Psych: Negative for depression, anxiety, suicide ideation, homicidal ideation, and hallucinations, Allergy/Immunology: Negative for hives, rash, and allergies, Endocrine: Negative for neck swelling, polydipsia, polyuria, polyphagia, and marked weight changes, Hematologic/Lymphatic: Negative for swollen nodes, abnormal bleeding, and unusual bruising. Exam: 19:59 Constitutional: This is a well developed, well nourished patient who is awake, alert, mh7 and in no acute distress. Head/Face: Normocephalic, atraumatic. Neck: Trachea midline, no thyromegaly or masses palpated, and no cervical lymphadenopathy. Supple, full range of motion without nuchal rigidity, or vertebral point tenderness. No Meningismus. Chest/axilla: Normal chest wall appearance and motion. Nontender with no deformity. No lesions are appreciated. Cardiovascular: Regular rate and rhythm with a normal S1 and S2. No gallops, murmurs, or rubs. Normal PMI, no JVD. No pulse deficits. Respiratory: Lungs have equal breath sounds bilaterally, clear to auscultation and percussion. No rales, rhonchi or wheezes noted. No increased work of breathing, no retractions or nasal flaring. Abdomen/GI: Soft, non-tender, with normal bowel sounds. No distension or tympany. No guarding or rebound. No evidence of tenderness throughout. Back: No spinal tenderness. No costovertebral tenderness. Full range of motion. Skin: Warm, dry with normal turgor. Normal color with no rashes, no lesions, and no evidence of cellulitis. MS/ Extremity: Pulses equal, no cyanosis. Neurovascular intact. Full, normal range of motion. Neuro: Awake and alert, GCS 15, oriented to person, place, time, and situation. Cranial nerves II-XII grossly intact. Motor strength 5/5 in all extremities. Sensory grossly intact. Cerebellar exam normal. Normal gait. Psych: Awake, alert, with orientation to person, place and time. Behavior, mood, and affect are within normal limits. 19:59 ECG was reviewed by the Attending Physician. Vital Signs: 19:15 BP 110 / 83; Pulse 93; Resp 16; Temp 98.2(O); Pulse Ox 100% on R/A; Weight 90.26 kg; jb4 Height 5 ft. 11 in. (180.34 cm); Pain 0/10; 20:00 BP 102 / 82; Pulse 98; Resp 20; Pulse Ox 96% on R/A; jb4 21:00 BP 120 / 77; Pulse 94; Resp 21; Pulse Ox 95% on R/A; jb4 22:00 BP 100 / 74; Pulse 85; Resp 21; Pulse Ox 92% on R/A; jb4 23:00 BP 114 / 75; Pulse 79; Resp 17; Pulse Ox 94% on R/A; jb4 19:15 Body Mass Index 27.75 (90.26 kg, 180.34 cm) 4 MDM: 19:43 Patient medically screened. [facility] 23:24 Differential diagnosis: acute myocardial infarction, anxiety, coronary artery disease [facility] chest wall pain, congestive heart failure costochondritis, pericarditis, pneumonia, pneumothorax, pulmonary embolus, stable angina. HEART Score: History: Slightly Suspicious (0), ECG: Normal (0), Age: < or = 45 years (0), Risk Factors: 1 or 2 risk factors (1), [Hypertension] [Active Smoker] Troponin: < or = 1 x Normal Limit (0), Total Score = 1. Data reviewed: vital signs, nurses notes, EMS record, lab test result(s), cardiac enzymes, CBC, electrolytes, urinalysis, urine drug screen, EKG, radiologic studies, plain films. Data interpreted: Pulse oximetry: on room air is 95 %. Interpretation: normal. Counseling: I had a detailed discussion with the patient and/or guardian regarding: the historical points, exam findings, and any diagnostic results supporting the discharge/admit diagnosis, lab results, radiology results, the need for outpatient follow up, to return to the emergency department if symptoms worsen or persist or if there are any questions or concerns that arise at home. 03/12 06:25 Response to treatment: the patient's symptoms have resolved after treatment, the 7 patient's blood pressure is in an acceptable range, mental status has returned to baseline, the patient no longer shows bradycardia, the patient is not short of breath, the patient is not tachycardic, the patient's pain is gone, the patient's temperature has normalized, the patient's condition has returned to base line, the patient is now symptom free. 03/11 19:44 Order name: Basic Metabolic Panel; Complete Time: 20:51 7 03/11 19:44 Order name: CBC with Diff; Complete Time: 20:51 7 03/11 19:44 Order name: LFT's; Complete Time: 20:51 7 03/11 19:44 Order name: Magnesium; Complete Time: 20:51 7 03/11 19:44 Order name: NT PRO-BNP; Complete Time: 20:51 7 03/11 19:44 Order name: PT-INR; Complete Time: 21:38 7 03/11 19:44 Order name: Troponin (emerg Dept Use Only); Complete Time: 20:51 7 03/11 19:44 Order name: XRAY Chest (1 view); Complete Time: 20:51 7 03/11 19:44 Order name: EKG; Complete Time: 19:45 7 03/11 20:01 Order name: UDS; Complete Time: 21:38 7 03/11 20:57 Order name: Urine Dipstick--Ancillary (enter results); Complete Time: 21:38 tt3 03/11 21:14 Order name: D-Dimer; Complete Time: 21:38 EDMS 03/11 22:42 Order name: Troponin (emerg Dept Use Only); Complete Time: 23:22 7 03/11 19:42 Order name: EKG - Nurse/Tech; Complete Time: 19:42 ph 03/11 19:44 Order name: Cardiac monitoring; Complete Time: 19:58 mh7 03/11 19:44 Order name: IV Saline Lock; Complete Time: 19:58 mh7 03/11 19:44 Order name: Labs collected and sent; Complete Time: 19:58 7 03/11 19:44 Order name: O2 Per Protocol; Complete Time: 19:58 [facility] 03/11 19:44 Order name: O2 Sat Monitoring; Complete Time: 19:58 7 EC/20 19:59 Rate is 92 beats/min. Rhythm is regular, Normal Sinus Rhythm. QRS Russell is Normal. [place] mh7 interval is normal. QRS interval is normal. QT interval is normal. No Q waves. T waves are Normal. No ST changes noted. Clinical impression: Normal ECG. Administered Medications: No medications were administered Disposition: 03/12 06:25 Co-signature as Attending Physician, Miki Gayle MD. [facility] Disposition: 03/11/20 23:28 Discharged to Home. Impression: Chest pain, unspecified. - Condition is Stable. - Discharge Instructions: Nonspecific Chest Pain, [id number]. - Medication Reconciliation Form, Thank You Letter, Antibiotic Education, Prescription Opioid Use form. - Follow up: Private Physician; When: 1 - 2 days; Reason: Worsening of condition, Recheck today's complaints, Continuance of care, Re-evaluation by your physician. - Problem is new. - Symptoms are resolved. Signatures: Dispatcher [employer] [facility] Larissa Castro RN RN Ata Li RN RN [facility] Miki Gayle MD MD [facility] Corrections: (The following items were deleted from the chart) 03/11 21:14 20:52 D-DIMER+COAG.LAB.BRZ ordered. [facility] 23:40 19:15 Immunization history: Adult Immunizations up to date, [facility] 23:40 19:15 Social history: Smoking status: Patient reports the use of cigarette tobacco 4 products, unknown amount Patient uses alcohol, "When I want to". street drugs, marijuana, 23:40 23:28 03/11/2020 23:28 Discharged to Home. Impression: Chest pain, unspecified. jb4 Condition is Stable. Forms are Medication Reconciliation Form, Thank You Letter, Antibiotic Education, Prescription Opioid Use. Follow up: Private Physician; When: 1 - 2 days; Reason: Worsening of condition, Recheck today's complaints, Continuance of care, Re-evaluation by your physician. Problem is new. Symptoms are resolved. [facility]
--- NOTE | 2020-03-11 23:28 | ER ---
Nurse's Notes [facility] Name: Lauri Redmond Age: 44 yrs Sex: Male : 1975 Arrival Date: 03/11/2020 Time: 19:21 Bed 8 Private MD: Diagnosis: Chest pain, unspecified Presentation: 03/11 19:15 Chief complaint: EMS states: PT reports having chest pain and left shoulder pain that jb4 comes and goes. The two are not connected. Pt reports having an appointment with the front office developer on Sunday to receive an ultrasound due to an arrythmia. 19:15 Coronavirus screen: Client denies travel out of the [place] in the last 14 days. At this 4 time, the client does not indicate any symptoms associated with coronavirus-19. Ebola Screen: No symptoms or risks identified at this time. Initial Sepsis Screen: Does the patient meet any 2 criteria? No. Patient's initial sepsis screen is negative. Does the patient have a suspected source of infection? No. Patient's initial sepsis screen is negative. Risk Assessment: Do you want to hurt yourself or someone else? Patient reports no desire to harm self or others. Onset of symptoms was March 11, 2020. Transition of care: patient was not received from another setting of care. 19:15 Method Of Arrival: EMS: [facility] 19:15 Acuity: NORMA 3 jb4 Historical: - Allergies: 19:15 "basically any generic thing for pain"; ph 19:15 Tylenol; ph 19:15 Vicodin; ph 19:15 Hydrocodone-Acetaminophen; ph 19:15 lortab; ph - Home Meds: 19:15 lisinopril-hydrochlorothiazide Oral [Active]; Metoprolol Tartrate Oral [Active]; ph Naproxen Oral [Active]; Prednisone Oral [Active]; - PMHx: 19:15 Back pain; Hypertension; ph - PSHx: 19:15 Cholecystectomy; right jaw; ph - Immunization history:: Adult Immunizations up to date. - Social history:: Smoking status: Patient reports the use of cigarette tobacco products, unknown amount Patient uses alcohol, When I want to. street drugs, marijuana. Screenin:15 Abuse screen: Denies threats or abuse. Nutritional screening: No deficits noted. jb4 Tuberculosis screening: No symptoms or risk factors identified. Fall Risk None identified. Assessment: 19:15 General: Appears in no apparent distress. comfortable, Behavior is calm, cooperative, jb4 appropriate for age. Pain: Complains of pain in chest and anterior aspect of left shoulder Pain does not radiate. Pain currently is 0 out of 10 on a pain scale. Quality of pain is described as pressure, Pain began Earlier today Is intermittent. Neuro: Level of Consciousness is awake, alert, obeys commands, Oriented to person, place, time, situation. Cardiovascular: Patient's skin is warm and dry. Rhythm is sinus rhythm. Respiratory: Airway is patent Respiratory effort is even, unlabored, Respiratory pattern is regular, symmetrical. GI: No signs and/or symptoms were reported involving the gastrointestinal system. : No signs and/or symptoms were reported regarding the genitourinary system. EENT: No signs and/or symptoms were reported regarding the EENT system. Derm: Skin is intact, Skin is pink, warm \\T\\ dry. Musculoskeletal: Circulation, motion, and sensation intact. Range of motion: intact in all extremities. 20:45 Reassessment: Patient and/or family updated on plan of care and expected duration. Pain jb4 level reassessed. Patient is alert, oriented x 3, equal unlabored respirations, skin warm/dry/pink. PT is sitting up in bed comfortably. No s/s of pain or distress noted. 22:08 Reassessment: Patient appears in no apparent distress at this time. Patient and/or jb4 family updated on plan of care and expected duration. Pain level reassessed. Patient is alert, oriented x 3, equal unlabored respirations, skin warm/dry/pink. 23:35 Reassessment: Patient appears in no apparent distress at this time. Patient and/or jb4 family updated on plan of care and expected duration. Pain level reassessed. Patient is alert, oriented x 3, equal unlabored respirations, skin warm/dry/pink. PT verbalized understanding of d/c and follow up instructions. Denies questions or concerns. Ambulated out of ED with steady gait. Vital Signs: 19:15 BP 110 / 83; Pulse 93; Resp 16; Temp 98.2(O); Pulse Ox 100% on R/A; Weight 90.26 kg; jb4 Height 5 ft. 11 in. (180.34 cm); Pain 0/10; 20:00 BP 102 / 82; Pulse 98; Resp 20; Pulse Ox 96% on R/A; jb4 21:00 BP 120 / 77; Pulse 94; Resp 21; Pulse Ox 95% on R/A; jb4 22:00 BP 100 / 74; Pulse 85; Resp 21; Pulse Ox 92% on R/A; jb4 23:00 BP 114 / 75; Pulse 79; Resp 17; Pulse Ox 94% on R/A; jb4 19:15 Body Mass Index 27.75 (90.26 kg, 180.34 cm) jb4 ED Course: 19:15 Patient has correct armband on for positive identification. Bed in low position. Call [facility] light in reach. Side rails up X 1. superintendent communications on. Pulse ox on. NIBP on. 19:15 Arm band placed on right wrist. jb4 19:21 Patient arrived in ED. ph 19:22 Miki Gayle MD is Attending Physician. [facility] 19:25 EKG done, by ED staff, reviewed by Miki Gayle MD. jb4 19:35 Triage completed. ph 19:43 Ata Li, RN is Primary Nurse. jb4 19:50 Initial lab(s) drawn, by me, sent to lab. Inserted saline lock: 18 gauge in right jb4 wrist, using aseptic technique. Blood collected. 19:58 Basic Metabolic Panel Sent. jb4 19:58 CBC with Diff Sent. jb4 19:58 LFT's Sent. jb4 19:58 Magnesium Sent. jb4 19:58 NT PRO-BNP Sent. jb4 19:58 PT-INR Sent. jb4 20:05 XRAY Chest (1 view) In Process Unspecified. EDMS 20:49 UDS Sent. jb4 22:38 Lab(s) recollected, by me, sent to lab. jb4 23:36 No provider procedures requiring assistance completed. IV discontinued, intact, jb4 bleeding controlled, No redness/swelling at site. Pressure dressing applied. Administered Medications: No medications were administered Outcome: 23:28 Discharge ordered by . 7 23:36 Discharged to home ambulatory. jb4 23:36 Condition: stable 23:36 Discharge instructions given to patient, Instructed on discharge instructions, follow up and referral plans. Demonstrated understanding of instructions, follow-up care. 23:40 Patient left the ED. jb4 Signatures: Dispatcher [employer] Larissa Muhammad RN RN Ata Li RN RN jb4 Miki Gayle MD MD mh7 Corrections: (The following items were deleted from the chart) 21:10 19:15 General: Appears in no apparent distress. comfortable, Behavior is calm, jb4 cooperative, appropriate for age, ph 21:10 19:15 Pain: Complains of pain in chest and anterior aspect of left shoulder Pain does jb4 not radiate. Pain currently is 0 out of 10 on a pain scale. Quality of pain is described as pressure, Pain began Earlier today Is intermittent, ph 21:10 19:15 Neuro: Level of Consciousness is awake, alert, obeys commands, Oriented to jb person, place, time, situation, ph 21:10 19:15 Cardiovascular: Patient's skin is warm and dry. Rhythm is sinus rhythm ph [facility] 21:10 19:15 Respiratory: Airway is patent Respiratory effort is even, unlabored, Respiratory jb pattern is regular, symmetrical, ph 21:10 19:15 GI: No signs and/or symptoms were reported involving the gastrointestinal system. jb4 ph 21:10 19:15 : No signs and/or symptoms were reported regarding the genitourinary system. ph [facility] 21:10 19:15 EENT: No signs and/or symptoms were reported regarding the EENT system. ph [facility] 21:10 19:15 Derm: Skin is intact, Skin is pink, warm \\T\\ dry. ph [facility] 21:10 19:15 Musculoskeletal: Circulation, motion, and sensation intact. Range of motion: jb4 intact in all extremities, ph 21:10 19:15 Abuse screen: Denies threats or abuse. [facility] 21:10 19:15 Nutritional screening: No deficits noted. ph 4 21:10 19:15 Tuberculosis screening: No symptoms or risk factors identified. ph 4 21:10 19:15 Fall Risk None identified. [facility] :11 19:15 Arm band placed on right wrist. ph [facility] 21:11 19:15 Patient has correct armband on for positive identification. Bed in low position. jb4 Call light in reach. Side rails up X 1. ph 21:11 19:15 superintendent communications on. Pulse ox on. NIBP on. ph [facility] 21:11 19:25 EKG done, by ED staff, reviewed by Miki Gayle MD [facility] 23:39 19:15 Chief complaint: EMS states: PT reports having chest pain and left shoulder pain [facility] that comes and goes. The two are not connected. Pt reports having an appointment with the front office developer on Sunday to receive an ultrasound due to an arrythmia. 23:39 19:15 Coronavirus screen: Client denies travel out of the [place] in the last 14 days. At [facility] this time, the client does not indicate any symptoms associated with coronavirus-19. 23:39 19:15 Ebola Screen: No symptoms or risks identified at this time. [facility] 23:39 19:15 Initial Sepsis Screen: Does the patient meet any 2 criteria? No. Patient's [facility] initial sepsis screen is negative. Does the patient have a suspected source of infection? No. Patient's initial sepsis screen is negative. [facility]: 19:15 Risk Assessment: Do you want to hurt yourself or someone else? Patient reports no [facility] desire to harm self or others. 23:39 19:15 Onset of symptoms was March 11, 2020 [facility] 23:39 19:15 Transition of care: patient was not received from another setting of care. [facility] 23:39 19:15 Method Of Arrival: EMS: [facility] 23:39 19:15 BP 110 / 83; Pulse 93bpm; Resp 16bpm; Pulse Ox 100% RA; Temp 98.2F Oral; 90.26 kg jb4 Reported; Height 5 ft. 11 in. Reported; BMI: 27.7; Pain 0/10; 23:39 19:15 Acuity: NORMA 3 [facility] 23:40 19:15 Immunization history: Adult Immunizations up to date, [facility] 23:40 19:15 Social history: Smoking status: Patient reports the use of cigarette tobacco 4 products, unknown amount Patient uses alcohol, "When I want to". street drugs, marijuana,
[2020-03-12 00:24] VITALS: BP 114/75; O2SAT 94
== END 2020-03-11 23:40 | disposition home or self-care (01) ==
LOC: ER 19:18
DX: R07.9 Chest pain, unspecified (principal); I10 Essential (primary) hypertension; F17.210 Nicotine dependence, cigarettes, uncomplicated; Z88.5 Allergy status to narcotic agent; Z88.6 Allergy status to analgesic agent
CPT/HCPCS: 36415; 71045; 80048; 80076; 80307; 81003; 83735; 83880; 84484; 85025; 85379; 85610; 93005; 99284

== ENCOUNTER 2021-07-21 17:55 | Emergency (ER) | payer OTHER ==
--- OUTSIDE RECORDS SUMMARY | 2021-07-21 18:04 | XMS REPORT | Continuity of Care Document ---
:[address] [facility] t Address [address] [place] [address] Care Team Providers Name Role Phone Ovi HARPER Primary Care Physician Richardson GELLER Attending Clinician Unavailable Ovi HARPER Attending Clinician OVI Attending Clinician Unavailable Only, Test Attending Clinician Unavailable Richardson Geller MD Attending Clinician Doctor Unassigned, Name Attending Clinician Unavailable Pob, Lab Main Attending Clinician Unavailable Troy Castellon MD Attending Clinician GRAMM, A Attending Clinician Unavailable Hiram HARPER Attending Clinician HIRAM Attending Clinician Unavailable 2, Lab Attending Clinician Unavailable Pc, Echo Room 1 - Attending Clinician Unavailable Chloé HARPER Attending Clinician CHLOÉ Attending Clinician Unavailable ANENE Attending Clinician Unavailable Lab, Fam Pob I Attending Clinician Unavailable Anene [employer] TEACHER Attending Clinician TROY CASTELLON Attending Clinician Unavailable Pob1, Care Clinic Attending Clinician Unavailable Richardson GELLER Admitting Clinician Unavailable Richardson Geller MD Admitting Clinician Payers Payer Name Policy Type Policy Number Effective Date Expiration Date Richardson chavez [facility] [id number] 2018 00:00:00 PLUS Problems Condition Condition Condition Status Onset Resolution Last Treating Co mments Source Name Details Category Date Date Treatment Clinician Date Irritabili Irritabili Disease Active 2020-0 U nivers ty and ty and 4-28 ity of anger anger 00:00: [place] [address] Medical Branch Anxiety, Anxiety, Disease Active Unive rs generalize generalize 11-17 it y of d d 00:: [place] [facility] 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 11-17 ity of depression [place] 00:[place] [facility] Laceration Laceration Disease Active U nivers of right of right 11-17 ity of hand hand 00:00: [place] without without 00 Medical foreign foreign Branch body, body, sequela sequela Dyslipidem Dyslipidem Disease Active U nivers ia ia 11-17 ity of 00:00: [place] 00 Medical Branch Acute Acute Disease Active 2019-07 Univers viral viral ity of sinusitis sinusitis 00:00: [facility] Erectile Erectile Disease Active Unive rs dysfunctio dysfunctio 03-23 it y of n, n, 00:00: [place] unspecifie unspecifie 00 Me dical d erectile d erectile Br anch dysfunctio dysfunctio n type n type Bilateral Bilateral Disease Active Uni vers leg pain leg pain 03-23 ity of 00:00: [place] 00 Medical Branch Erectile Erectile Disease Active Unive rs dysfunctio dysfunctio 03-23 it y of n, n, 00:00: [place] unspecifie unspecifie 00 Me dical d erectile d erectile Br anch dysfunctio dysfunctio n type n type Dizziness Dizziness Disease Active Uni vers 7-30 ity of 00:: [place] [facility] Intermitte Intermitte Disease Active U nivers nt chest nt chest 30 ity of pain pain 00:00: [place] [facility] Hypertensi Hypertensi Disease Active U nivers ve urgency ve urgency 11-12 it y of 00:00: [place] 00 Medical Branch Suspected Suspected Disease Active Uni vers COVID-19 COVID-19 11-12 ity of virus virus 00:00: [place] infection infection 00 [facility] Branch Cigarette Cigarette Disease Active Uni vers nicotine nicotine 11-12 ity of dependence [place] without 00 Medical complicati complicati Br anch on on Cough Cough Disease Active 2020-0 Univers 4-23 ity of 00:00: [place] 00 Medical Branch Diarrhea, Diarrhea, Disease Active Uni vers unspecifie unspecifie 11-12 it y of d type d type 00:00: [place] 00 Medical Branch Other Other Disease Active Univers headache headache 11-12 ity of syndrome syndrome 00:00: [place] [facility] Tobacco Tobacco Disease Active Univers dependence dependence 11-12 it y of 00:00: [place] 00 Medical Branch Anesthesia Anesthesia Disease Active Overview : Univers complicati complicati Formattin ity of on on g of this [place] note Medical might be Branch different from the original. Pt states he wakes up aggressiv e Hypertensi Hypertensi Disease Active U nivers on on ity of [facility] Chronic Chronic Disease Active Univers neck and neck and ity of back pain back pain [facility] Branch Acid Acid Disease Active Univers reflux reflux ity of [place] [facility] Allergies, Adverse Reactions, Alerts Allergy Allergy Status Severity Reaction(s) Onset Inactive Treating Comm ents Source Name Type Date Date Clinician Hydrocod Propensi Active Nausea Univer s one-Acet ty to and/or 5-18 ity of aminophe adverse Vomiting 00:00: [place] n reaction 00 Medical s to Branch drug HYDROCOD DRUG Active Low N/V Univers ONE-ACET 5-18 ity of AMINOPHE 00:00: [place] N 00 Medical Branch Social History Social Habit Start Date Stop Date Quantity Comments Source History of tobacco Cigarette Smoker University of use [facility] Exposure to Not sure University of SARS-CoV-2 (event) [facility] [place] Branch History [facility] University o f Alcohol Frequency [facility] History [facility] University o f Alcohol Std Drinks [facility] History [facility] University o f Alcohol [facility] al Branch Alcohol intake 2020-12-10 2020-12-10 Current drinker Unive rsity of 00:00:00 00:00:00 of alcohol [facility] [place] (finding) Branch Cigarettes smoked 2016-12-07 2016-12-07 Univers ity of current (pack per 00:00:00 00:00:00 [facility] ) - Reported Branch Tobacco use and 2016-12-07 2016-12-07 Never used Universit y of exposure 00:00:00 00:00:00 [facility] Alcohol Comment 2016-12-07 2016-12-07 Occasional Universit y of 00:00:00 00:00:00 Drinker [facility] Sex [birth year] Universit y of 00:00:00 00:00:00 [facility] Smoking Status Start Date Stop Date Source Current every day smoker 2020-11-26 00:00:00 Uni versity [facility] Medications Ordered Filled Start Stop Current Ordering Indication Dosage Frequency Signature Comments Components Source Medication Medication Date Date Medication? Clinician (SIG) Name Name OMEPRAZOLE 2020-07 Yes [id number] TAKE 1 Univers 40 mg 1-23 CAPSULE BY ity of capsule 00:00: MOUTH [place] 00 EVERY DAY Medical Branch BUPROPION 2020-07 Yes [id number] 150mg TAKE 1 U nivers SR 150 mg 0-27 TABLET BY ity o f SR tablet 00:00: [place] [address] (TWO) Medical TIMES [place] DAILY. BUPROPION 2020-07 Yes [id number] 150mg TAKE 1 U nivers SR 150 mg 0-27 TABLET BY ity o f SR tablet 00:00: [address] (TWO) Medical TIMES [place] DAILY. OMEPRAZOLE Yes [id number] TAKE 1 Univers 40 mg 8-31 CAPSULE BY ity of capsule 00:00: MOUTH [place] 00 EVERY DAY Medical Branch OMEPRAZOLE 0 Yes [id number] TAKE 1 Univers 40 mg 8-31 CAPSULE BY ity of capsule 00:00: MOUTH [place] 00 EVERY DAY Medical Branch OMEPRAZOLE 0 Yes [id number] TAKE 1 Univers 40 mg 8-31 CAPSULE BY ity of capsule 00:00: [facility] 00 EVERY DAY Medical Branch OMEPRAZOLE 0 2020- No [id number] TAKE 1 Univers 40 mg 8-31 11-23 CAPSULE BY ity of capsule 00:00: 00:00 MOUTH [place] 00 :00 EVERY DAY Medical Branch OMEPRAZOLE 0 Yes [id number] TAKE 1 Univers 40 mg 5-28 CAPSULE BY ity of capsule 00:00: MOUTH [place] 00 EVERY DAY Medical Branch OMEPRAZOLE 2020-0 2020- No [id number] TAKE 1 Univers 40 mg 5-28 08-31 CAPSULE BY ity of capsule 00:00: 00:00 MOUTH [place] 00 :00 EVERY DAY Medical Branch OMEPRAZOLE 2020-0 2020- No [id number] TAKE 1 Univers 40 mg 5-28 08-31 CAPSULE BY ity of capsule 00:00: 00:00 MOUTH [place] 00 :00 EVERY DAY Medical Branch citalopram 2020-0 Yes 20mg Take 20 mg U nivers 20 mg 5-10 by mouth ity of tablet 13:58: daily. Medical Branch ARIPiprazol 2020-0 Yes 10mg Take 10 mg Univers e 10 mg 5-10 by mouth ity of tablet 13:58: daily. Medical Branch traZODone 2020-0 Yes 50mg Take 50 mg Un [place] 50 mg 5-10 by mouth ity of tablet 13:58: at [place] 00 bedtime. Medical Branch citalopram 2020-0 Yes 20mg Take 20 mg U nivers 20 mg 5-10 by mouth ity of tablet 13:58: daily. Medical Branch ARIPiprazol 2020-0 Yes 10mg Take 10 mg Univers e 10 mg 5-10 by mouth ity of tablet 13:58: daily. Medical Branch traZODone 2020-0 Yes 50mg Take 50 mg Un [place] 50 mg 5-10 by mouth ity of tablet 13:58: at [place] 00 bedtime. Medical Branch citalopram 2020-0 Yes 20mg Take 20 mg U nivers 20 mg 5-10 by mouth ity of tablet 13:58: daily. Medical Branch ARIPiprazol 2020-0 Yes 10mg Take 10 mg Univers e 10 mg 5-10 by mouth ity of tablet 13:58: daily. Medical Branch traZODone 2020-0 Yes 50mg Take 50 mg Un [place] 50 mg 5-10 by mouth ity of tablet 13:58: at [place] 00 bedtime. Medical Branch citalopram 2020-0 Yes 20mg Take 20 mg U nivers 20 mg 5-10 by mouth ity of tablet 13:58: daily. Medical Branch ARIPiprazol 2020-0 Yes 10mg Take 10 mg Univers e 10 mg 5-10 by mouth ity of tablet 13:58: daily. Medical Branch traZODone 2020-0 Yes 50mg Take 50 mg Un [place] 50 mg 5-10 by mouth ity of tablet 13:58: at [place] [address] bedtime. Medical Branch citalopram 2020-0 Yes 20mg Take 20 mg U nivers 20 mg 5-10 by mouth ity of tablet 13:58: daily. Medical Branch ARIPiprazol 0 Yes 10mg Take 10 mg Univers e 10 mg 5-10 by mouth ity of tablet 13:58: daily. Medical Branch traZODone 0 Yes 50mg Take 50 mg Un [place] 50 mg 5-10 by mouth ity of tablet 13:58: at [place] 00 bedtime. Medical Branch citalopram 0 Yes 20mg Take 20 mg U nivers 20 mg 5-10 by mouth ity of tablet 13:58: daily. Medical Branch ARIPiprazol 0 Yes 10mg Take 10 mg Univers e 10 mg 5-10 by mouth ity of tablet 13:58: daily. Medical Branch traZODone 0 Yes 50mg Take 50 mg Un [place] 50 mg 5-10 by mouth ity of tablet 13:58: at [place] 00 bedtime. Medical Branch citalopram 0 Yes 20mg Take 20 mg U nivers 20 mg 5-10 by mouth ity of tablet 13:58: daily. Medical Branch ARIPiprazol 0 Yes 10mg Take 10 mg Univers e 10 mg 5-10 by mouth ity of tablet 13:58: daily. Medical Branch traZODone 0 Yes 50mg Take 50 mg Un [place] 50 mg 5-10 by mouth ity of tablet 13:58: at [place] 00 bedtime. Medical Branch citalopram 0 Yes 20mg Take 20 mg U nivers 20 mg 5-10 by mouth ity of tablet 13:58: daily. Medical Branch ARIPiprazol 0 Yes 10mg Take 10 mg Univers e 10 mg 5-10 by mouth ity of tablet 13:58: daily. Medical Branch traZODone 0 Yes 50mg Take 50 mg Un [place] 50 mg 5-10 by mouth ity of tablet 13:58: at [place] 00 bedtime. Medical Branch citalopram 0 Yes 20mg Take 20 mg U nivers 20 mg 5-10 by mouth ity of tablet 13:58: daily. Medical Branch ARIPiprazol 2021-0 Yes 10mg Take 10 mg Univers e 10 mg 5-10 by mouth ity of tablet 13:58: daily. Medical Branch traZODone Yes 50mg Take 50 mg Un [place] 50 mg 5-10 by mouth ity of tablet 13:58: at [place] 00 bedtime. Medical Branch citalopram 0 Yes 20mg Take 20 mg U nivers 20 mg 5-10 by mouth ity of tablet 13:58: daily. Medical Branch ARIPiprazol 0 Yes 10mg Take 10 mg Univers e 10 mg 5-10 by mouth ity of tablet 13:58: daily. Medical Branch traZODone Yes 50mg Take 50 mg Un [place] 50 mg 5-10 by mouth ity of tablet 13:58: at [place] [address] bedtime. Medical Branch citalopram Yes 20mg Take 20 mg U nivers 20 mg 5-10 by mouth ity of tablet 13:58: daily. Medical Branch ARIPiprazol Yes 10mg Take 10 mg Univers e 10 mg 5-10 by mouth ity of tablet 13:58: daily. Medical Branch traZODone Yes 50mg Take 50 mg Un [place] 50 mg 5-10 by mouth ity of tablet 13:58: at [place] 00 bedtime. Medical Branch triamcinolo 2020- No PRN, Unive rs ne 5 05-10 Starting ity of acetonide 12:30: 15:58 [facility] (KENALOG) 00 :03 11/29/20 at [facility] ranjit injection 0730, [place] Until Sun11/29/20 at 1058, Routine, Intra-op lidocaine 2020- No PRN, Univers 1% 11-29 05-10 Starting ity of (XYLOCAINE) 12:30: 15:58 [facility] 10 mg/mL (1 00 :03 11/29/20 at Ne dical %) 0730, Branch injection Until Sun11/29/20 at 1058, Routine, Intra-op iohexoL 2020- No PRN, Univers (OMNIPAQUE 5- 05-10 Starting ity of 300-50 mL)) 12:30: 15:58 [facility] injection 00 :03 11/29/20 at Medi ranjit 0730, Branch Until 11/29/20 at 1058, Routine, Intra-op bupivacaine 2020-2020- No PRN, Unive rs (preserv 5-10 05-10 Starting ity of free) 12:30: 15:58 Mon [place] (SENSORCAIN 00 :03 11/29/20 at Ne dical E [facility]) 0.25 0730, Branch % (2.5 Until Mon mg/mL) 11/29/20 at injection 1058, Routine, Intra-op lactated 2020-2020- No 1000mL at 42 Unive rs ringers IV 5-10 05-10 mL/hr, ity of infusion 11:30: 11:40 1,000 mL, [place] 1,000 mL 00 :00 IV Medical Infusion, Branch ONCE, 1 dose, 11/29/20 at 0630, Routine, DSU Pre-op lactated 2020-2020- No 1000mL at 42 Unive rs ringers IV 5-10 05-10 mL/hr, ity of infusion 11:30: 11:40 1,000 mL, [place] 1,000 mL 00 :00 IV Medical Infusion, Branch ONCE, 1 dose, 11/29/20 at 0630, Routine, DSU Pre-op citalopram Yes 20mg Take 20 mg U nivers 20 mg 5-10 by mouth ity of tablet 08:58: daily. [address] Branch ARIPiprazol 0 Yes 10mg Take 10 mg Univers e 10 mg 5-10 by mouth ity of tablet 08:58: daily. [address] Branch traZODone 0 Yes 50mg Take 50 mg Un [place] 50 mg 5-10 by mouth ity of tablet 08:58: at [place] 00 bedtime. Medical Branch citalopram 0 Yes 20mg Take 20 mg U nivers 20 mg 5-10 by mouth ity of tablet 08:58: daily. [address] Branch ARIPiprazol 0 Yes 10mg Take 10 mg Univers e 10 mg 5-10 by mouth ity of tablet 08:58: daily. [address] traZODone 0 Yes 50mg Take 50 mg Un [place] 50 mg 5-10 by mouth ity of tablet 08:58: at [place] 00 bedtime. Medical Branch traZODone 2020-0 Yes 50mg Take 50 mg Un [place] 50 mg 5-07 by mouth ity of tablet 13:45: at [place] 14 bedtime. Medical Branch citalopram 2020-0 Yes 20mg Take 20 mg U nivers 20 mg 5-07 by mouth ity of tablet 13:45: daily. [place] [address] Medical Branch ARIPiprazol 2020-0 Yes 10mg Take 10 mg Univers e 10 mg 5-07 by mouth ity of tablet 13:45: daily. [place] [address] Medical Branch traZODone 2020-0 Yes 50mg Take 50 mg Un [place] 50 mg 5-07 by mouth ity of tablet 13:45: at [place] 14 bedtime. Medical Branch citalopram 2020-0 Yes 20mg Take 20 mg U nivers 20 mg 5-07 by mouth ity of tablet 13:45: daily. [place] [address] Medical Branch ARIPiprazol 2020-0 Yes 10mg Take 10 mg Univers e 10 mg 5-07 by mouth ity of tablet 13:45: daily. [place] [address] Medical Branch traZODone 2020-0 Yes 50mg Take 50 mg Un [place] 50 mg 5-07 by mouth ity of tablet 13:45: at [place] 14 bedtime. Medical Branch citalopram 2020-0 Yes 20mg Take 20 mg U nivers 20 mg 5-07 by mouth ity of tablet 13:45: daily. [place] [address] Medical Branch ARIPiprazol 2020-0 Yes 10mg Take 10 mg Univers e 10 mg 5-07 by mouth ity of tablet 13:45: daily. [place] [address] Medical Branch citalopram 2020-0 Yes 20mg Take 20 mg U nivers 20 mg 5-07 by mouth ity of tablet 13:45: daily. [place] [address] Medical Branch ARIPiprazol 2020-0 Yes 10mg Take 10 mg Univers e 10 mg 5-07 by mouth ity of tablet 13:45: daily. [place] [address] Medical Branch traZODone 2020-0 Yes 50mg Take 50 mg Un [place] 50 mg 5-07 by mouth ity of tablet 13:45: at [place] 14 bedtime. Medical Branch citalopram 2020-0 Yes 20mg Take 20 mg U nivers 20 mg 5-07 by mouth ity of tablet 13:45: daily. [address] Branch ARIPiprazol Yes 10mg Take 10 mg Univers e 10 mg 5-07 by mouth ity of tablet 13:45: daily. [address] Branch traZODone Yes 50mg Take 50 mg Un [place] 50 mg 5-07 by mouth ity of tablet 13:45: at [place] [address] bedtime. Medical Branch citalopram Yes 20mg Take 20 mg U nivers 20 mg 5-07 by mouth ity of tablet 13:45: daily. [address] Branch ARIPiprazol Yes 10mg Take 10 mg Univers e 10 mg 5-07 by mouth ity of tablet 13:45: daily. [address] Branch traZODone Yes 50mg Take 50 mg Un [place] 50 mg 5-07 by mouth ity of tablet 13:45: at [place] [address] bedtime. Medical Branch HYDROcodone 2020- No .5{tbl} Take 0.5 Univers -acetaminop 4-28 -28 tablets by i ty of hen 7.5-325 20:46: 00:00 [place] mg per 07 :00 every 4 Medical tablet (four) Branch hours. HYDROcodone 2020- No .5{tbl} Take 0.5 Univers -acetaminop 4-28 -28 tablets by i ty of hen 7.5-325 20:46: 00:00 [place] mg per 07 :00 every 4 Medical tablet (four) Branch hours. metoprolol 2020- No 25mg Take 25 mg Univers succinate -17 11-28 by mouth ity o f XL 25 mg 24 20:35: 00:00 daily. [place] hr tablet 23 :00 Medical Branch metoprolol 2020- No 25mg Take 25 mg Univers succinate -17 11-28 by mouth ity o f XL 25 mg 24 20:35: 00:00 daily. [place] hr tablet 23 :00 Medical Branch losartan-hy Yes Essential 1{tbl} Take 1 Univers drochloroth -28 hypertensio tablet by ity of iazide 00:00: n mouth [place] 100-25 mg 00 daily. Medical per tablet Branch amLODIPine Yes Essential 10mg Take 1 Univers 10 mg 4-28 hypertensio tablet by it y of tablet 00:00: n mouth [place] 00 daily. Medical Branch metoprolol Yes Essential 25mg Take 1 Univers succinate 4-28 hypertensio tablet by ity of XL 25 mg 24 00:00: n mouth [place] hr tablet 00 daily. Medical Branch mupirocin 2 Yes Laceration Apply to Univers % ointment 4-28 of right area(s) 3 ity of 00:00: hand (three) [place] 00 without times Medical foreign daily. Branch body, Apply 4g sequela to affected area hand buPROPion Yes Cigarette 150mg Take 1 Univers SR 4-28 nicotine tablet by ity of (WELLBUTRIN 00:00: dependence mouth 2 [place] SR) 150 mg 00 without (two) Medic al SR tablet complicatio times Br anch n daily. niacin 500 Yes Dyslipidemi 500mg Take 1 Univers mg tablet 4-28 a tablet by ity o f 00:00: mouth at [place] 00 bedtime. Medical Branch losartan-hy Yes Essential 1{tbl} Take 1 Univers drochloroth 4-28 hypertensio tablet by ity of iazide 00:00: n mouth [place] 100-25 mg 00 daily. Medical per tablet Branch amLODIPine Yes Essential 10mg Take 1 Univers 10 mg 4-28 hypertensio tablet by it y of tablet 00:00: n mouth [place] 00 daily. Medical Branch metoprolol Yes Essential 25mg Take 1 Univers succinate 4-28 hypertensio tablet by ity of XL 25 mg 24 00:00: n mouth [place] hr tablet 00 daily. Medical Branch mupirocin 2 Yes Laceration Apply to Univers % ointment 4-28 of right area(s) 3 ity of 00:00: hand (three) [place] 00 without times Medical foreign daily. Branch body, Apply 4g sequela to affected area hand buPROPion Yes Cigarette 150mg Take 1 Univers SR 4-28 nicotine tablet by ity of (WELLBUTRIN 00:00: dependence mouth 2 [place] SR) 150 mg 00 without (two) Medic al SR tablet complicatio times Br anch n daily. niacin 500 Yes Dyslipidemi 500mg Take 1 Univers mg tablet 4-28 a tablet by ity o f 00:00: mouth at [place] 00 bedtime. Medical Branch losartan-hy Yes Essential 1{tbl} Take 1 Univers drochloroth 4-28 hypertensio tablet by ity of iazide 00:00: n mouth [place] 100-25 mg 00 daily. Medical per tablet Branch amLODIPine Yes Essential 10mg Take 1 Univers 10 mg 4-28 hypertensio tablet by it y of tablet 00:00: n mouth [place] 00 daily. Medical Branch metoprolol Yes Essential 25mg Take 1 Univers succinate 4-28 hypertensio tablet by ity of XL 25 mg 24 00:00: n mouth [place] hr tablet 00 daily. Medical Branch mupirocin 2 Yes Laceration Apply to Univers % ointment 4-28 of right area(s) 3 ity of 00:00: hand (three) [place] 00 without times Medical foreign daily. Branch body, Apply 4g sequela to affected area hand buPROPion Yes Cigarette 150mg Take 1 Univers SR 4-28 nicotine tablet by ity of (WELLBUTRIN 00:00: dependence mouth 2 [place] SR) 150 mg 00 without (two) Medic al SR tablet complicatio times Br anch n daily. niacin 500 Yes Dyslipidemi 500mg Take 1 Univers mg tablet 4-28 a tablet by ity o f 00:00: mouth at [place] 00 bedtime. Medical Branch losartan-hy Yes [id number] 1{tbl} Take 1 Univers drochloroth 4-28 tablet by ity of iazide 00:00: mouth [place] 100-25 mg 00 daily. Medical per tablet Branch amLODIPine Yes [id number] 10mg Take 1 U nivers 10 mg 4-28 tablet by ity of tablet 00:00: mouth [place] 00 daily. Medical Branch metoprolol Yes [id number] 25mg Take 1 U nivers succinate 4-28 tablet by ity o f XL 25 mg 24 00:00: mouth [place] hr tablet 00 daily. Medical Branch mupirocin 2 Yes [id number] Apply to Univers % ointment 4-28 area(s) 3 ity of 00:00: (three) [place] 00 times Medical daily. Branch Apply 4g to affected area hand niacin 500 Yes [id number] 500mg Take 1 Univers mg tablet 4-28 tablet by ity o f 00:00: mouth at [place] 00 bedtime. Medical Branch losartan-hy Yes [id number] 1{tbl} Take 1 Univers drochloroth 4-28 tablet by ity of iazide 00:00: mouth [place] 100-25 mg 00 daily. Medical per tablet Branch amLODIPine Yes [id number] 10mg Take 1 U nivers 10 mg 4-28 tablet by ity of tablet 00:00: mouth [place] 00 daily. Medical Branch metoprolol Yes [id number] 25mg Take 1 U nivers succinate 4-28 tablet by ity o f XL 25 mg 24 00:00: mouth [place] hr tablet 00 daily. Medical Branch mupirocin 2 Yes [id number] Apply to Univers % ointment 4-28 area(s) 3 ity of 00:00: (three) [place] 00 times Medical daily. Branch Apply 4g to affected area hand buPROPion Yes [id number] 150mg Take 1 U nivers SR 4-28 tablet by ity of (WELLBUTRIN 00:00: mouth 2 [place] SR) 150 mg 00 (two) Medical SR tablet times Branch daily. niacin 500 Yes [id number] 500mg Take 1 Univers mg tablet 4-28 tablet by ity o f 00:00: mouth at [place] 00 bedtime. Medical Branch losartan-hy Yes [id number] 1{tbl} Take 1 Univers drochloroth 4-28 tablet by ity of iazide 00:00: mouth [place] 100-25 mg 00 daily. Medical per tablet Branch amLODIPine Yes [id number] 10mg Take 1 U nivers 10 mg 4-28 tablet by ity of tablet 00:00: mouth [place] 00 daily. Medical Branch metoprolol Yes [id number] 25mg Take 1 U nivers succinate 4-28 tablet by ity o f XL 25 mg 24 00:00: mouth [place] hr tablet 00 daily. Medical Branch mupirocin 2 Yes [id number] Apply to Univers % ointment 4-28 area(s) 3 ity of 00:00: (three) [place] 00 times Medical daily. Branch Apply 4g to affected area hand buPROPion Yes [id number] 150mg Take 1 U nivers SR 4-28 tablet by ity of (WELLBUTRIN 00:00: mouth 2 [place] SR) 150 mg 00 (two) Medical SR tablet times Branch daily. niacin 500 Yes [id number] 500mg Take 1 Univers mg tablet 4-28 tablet by ity o f 00:00: mouth at [place] 00 bedtime. Medical Branch losartan-hy Yes [id number] 1{tbl} Take 1 Univers drochloroth 4-28 tablet by ity of iazide 00:00: mouth [place] 100-25 mg 00 daily. Medical per tablet Branch amLODIPine Yes [id number] 10mg Take 1 U nivers 10 mg 4-28 tablet by ity of tablet 00:00: mouth [place] 00 daily. Medical Branch metoprolol Yes [id number] 25mg Take 1 U nivers succinate 4-28 tablet by ity o f XL 25 mg 24 00:00: mouth [place] hr tablet 00 daily. Medical Branch mupirocin 2 Yes [id number] Apply to Univers % ointment 4-28 area(s) 3 ity of 00:00: (three) [place] 00 times Medical daily. Branch Apply 4g to affected area hand buPROPion Yes [id number] 150mg Take 1 U nivers SR 4-28 tablet by ity of (WELLBUTRIN 00:00: mouth 2 [place] SR) 150 mg 00 (two) Medical SR tablet times Branch daily. niacin 500 Yes [id number] 500mg Take 1 Univers mg tablet 4-28 tablet by ity o f 00:00: mouth at [place] 00 bedtime. Medical Branch losartan-hy Yes [id number] 1{tbl} Take 1 Univers drochloroth 4-28 tablet by ity of iazide 00:00: mouth [place] 100-25 mg 00 daily. Medical per tablet Branch amLODIPine Yes [id number] 10mg Take 1 U nivers 10 mg 4-28 tablet by ity of tablet 00:00: mouth [place] 00 daily. Medical Branch metoprolol Yes [id number] 25mg Take 1 U nivers succinate 4-28 tablet by ity o f XL 25 mg 24 00:00: mouth [place] hr tablet 00 daily. Medical Branch mupirocin 2 Yes [id number] Apply to Univers % ointment 4-28 area(s) 3 ity of 00:00: (three) [place] 00 times Medical daily. Branch Apply 4g to affected area hand buPROPion Yes [id number] 150mg Take 1 U nivers SR 4-28 tablet by ity of (WELLBUTRIN 00:00: mouth 2 [place] SR) 150 mg 00 (two) Medical SR tablet times Branch daily. niacin 500 Yes [id number] 500mg Take 1 Univers mg tablet 4-28 tablet by ity o f 00:00: mouth at [place] 00 bedtime. Medical Branch losartan-hy Yes [id number] 1{tbl} Take 1 Univers drochloroth 4-28 tablet by ity of iazide 00:00: mouth [place] 100-25 mg 00 daily. Medical per tablet Branch amLODIPine Yes [id number] 10mg Take 1 [facility] 10 mg 4-28 tablet by [facility] of tablet 00:00: mouth [place] 00 daily. Medical Branch metoprolol Yes [id number] 25mg Take 1 [facility] succinate 4-28 tablet by ity o f XL 25 mg 24 00:00: mouth [place] hr tablet 00 daily. Medical Branch mupirocin 2 Yes [id number] Apply to [facility] % ointment 4-28 area(s) 3 ity of 00:00: (three) [place] 00 times Medical daily. Branch Apply 4g to affected area hand buPROPion Yes [id number] 150mg Take 1 [facility] SR 4-28 tablet by ity of (WELLBUTRIN 00:00: mouth 2 [place] SR) 150 mg 00 (two) Medical SR tablet times Branch daily. niacin 500 Yes [id number] 500mg Take 1 [facility] mg tablet 4-28 tablet by ity o f 00:00: mouth at [place] 00 bedtime. Medical Branch losartan-hy Yes [id number] 1{tbl} Take 1 [facility] drochloroth 4-28 tablet by ity of iazide 00:00: mouth [place] 100-25 mg 00 daily. Medical per tablet Branch losartan-hy Yes [id number] 1{tbl} Take 1 [facility] drochloroth 4-28 tablet by ity of iazide 00:00: mouth [place] 100-25 mg 00 daily. Medical per tablet Branch amLODIPine Yes [id number] 10mg Take 1 [facility] 10 mg 4-28 tablet by [facility] of tablet 00:00: mouth [place] 00 daily. Medical Branch metoprolol Yes [id number] 25mg Take 1 [facility] succinate 4-28 tablet by ity o f XL 25 mg 24 00:00: mouth [place] hr tablet 00 daily. Medical Branch mupirocin 2 Yes [id number] Apply to [facility] % ointment 4-28 area(s) 3 ity of 00:00: (three) [place] 00 times Medical daily. Branch Apply 4g to affected area hand buPROPion Yes [id number] 150mg Take 1 [facility] SR 4-28 tablet by ity of (WELLBUTRIN 00:00: mouth 2 [place] SR) 150 mg 00 (two) Medical SR tablet times Branch daily. niacin 500 Yes [id number] 500mg Take 1 [facility] mg tablet 4-28 tablet by ity o f 00:00: mouth at [place] 00 bedtime. Medical Branch amLODIPine Yes [id number] 10mg Take 1 [facility] 10 mg 4-28 tablet by [facility] of tablet 00:00: mouth [place] 00 daily. Medical Branch losartan-hy Yes [id number] 1{tbl} Take 1 [facility] drochloroth 4-28 tablet by ity of iazide 00:00: mouth [place] 100-25 mg 00 daily. Medical per tablet Branch amLODIPine Yes [id number] 10mg Take 1 [facility] 10 mg 4-28 tablet by ity of tablet 00:00: mouth [place] 00 daily. Medical Branch metoprolol Yes [id number] 25mg Take 1 [facility] succinate 4-28 tablet by ity o f XL 25 mg 24 00:00: mouth [place] hr tablet 00 daily. Medical Branch mupirocin 2 Yes [id number] Apply to [facility] % ointment 4-28 area(s) 3 ity of 00:00: (three) [place] 00 times Medical daily. Branch Apply 4g to affected area hand metoprolol Yes [id number] 25mg Take 1 [facility] succinate 4-28 tablet by ity o f XL 25 mg 24 00:00: mouth [place] hr tablet 00 daily. Medical Branch buPROPion Yes [id number] 150mg Take 1 [facility] SR 4-28 tablet by ity of (WELLBUTRIN 00:00: mouth 2 [place] SR) 150 mg 00 (two) Medical SR tablet times Branch daily. niacin 500 Yes [id number] 500mg Take 1 [facility] mg tablet 4-28 tablet by ity o f 00:00: mouth at [place] 00 bedtime. Medical Branch mupirocin 2 Yes [id number] Apply to [facility] % ointment 4-28 area(s) 3 ity of 00:00: (three) [place] 00 times Medical daily. Branch Apply 4g to affected area hand buPROPion Yes [id number] 150mg Take 1 [facility] SR 4-28 tablet by ity of (WELLBUTRIN 00:00: mouth 2 [place] SR) 150 mg 00 (two) Medical SR tablet times Branch daily. losartan-hy Yes [id number] 1{tbl} Take 1 [facility] drochloroth 4-28 tablet by ity of iazide 00:00: mouth [place] 100-25 mg 00 daily. Medical per tablet Branch amLODIPine Yes [id number] 10mg Take 1 [facility] 10 mg 4-28 tablet by it[facility] of tablet 00:00: mouth [place] 00 daily. [facility] Branch metoprolol Yes [id number] 25mg Take 1 [facility] succinate 4-28 tablet by ity o f XL 25 mg 24 00:00: mouth [place] hr tablet 00 daily. Medical Branch mupirocin 2 Yes [id number] Apply to [facility] % ointment 4-28 area(s) 3 ity of 00:00: (three) [place] 00 times Medical daily. Branch Apply 4g to affected area hand buPROPion Yes [id number] 150mg Take 1 [facility] SR 4-28 tablet by ity of (WELLBUTRIN 00:00: mouth 2 [place] SR) 150 mg 00 (two) Medical SR tablet times Branch daily. niacin 500 Yes [id number] 500mg Take 1 [facility] mg tablet 4-28 tablet by ity o f 00:00: mouth at [place] 00 bedtime. Medical Branch niacin 500 Yes [id number] 500mg Take 1 [facility] mg tablet 4-28 tablet by ity o f 00:00: mouth at [place] 00 bedtime. Medical Branch losartan-hy Yes [id number] 1{tbl} Take 1 [facility] drochloroth 4-28 tablet by ity of iazide 00:00: mouth [place] 100-25 mg 00 daily. Medical per tablet Branch amLODIPine Yes [id number] 10mg Take 1 [facility] 10 mg 4-28 tablet by ity of tablet 00:00: mouth [place] 00 daily. [facility] metoprolol Yes [id number] 25mg Take 1 [facility] succinate 4-28 tablet by ity o f XL 25 mg 24 00:00: mouth [place] hr tablet 00 daily. Medical Branch mupirocin 2 Yes [id number] Apply to [facility] % ointment 4-28 area(s) 3 ity of 00:00: (three) [place] 00 times Medical daily. Branch Apply 4g to affected area hand buPROPion Yes [id number] 150mg Take 1 [facility] SR 4-28 tablet by ity of (WELLBUTRIN 00:00: mouth 2 [place] SR) 150 mg 00 (two) Medical SR tablet times Branch daily. niacin 500 Yes [id number] 500mg Take 1 [facility] mg tablet 4-28 tablet by ity o f 00:00: mouth at [place] 00 bedtime. Medical Branch losartan-hy Yes [id number] 1{tbl} Take 1 [facility] drochloroth 4-28 tablet by ity of iazide 00:00: mouth [place] 100-25 mg 00 daily. Medical per tablet Branch amLODIPine Yes [id number] 10mg Take 1 [facility] 10 mg 4-28 tablet by ity of tablet 00:00: mouth [place] 00 daily. Medical Branch metoprolol Yes [id number] 25mg Take 1 [facility] succinate 4-28 tablet by ity o f XL 25 mg 24 00:00: mouth [place] hr tablet 00 daily. Medical Branch mupirocin 2 Yes [id number] Apply to [facility] % ointment 4-28 area(s) 3 ity of 00:00: (three) [place] 00 times Medical daily. Branch Apply 4g to affected area hand buPROPion Yes [id number] 150mg Take 1 [facility] SR 4-28 tablet by ity of (WELLBUTRIN 00:00: mouth 2 [place] SR) 150 mg 00 (two) Medical SR tablet times Branch daily. niacin 500 Yes [id number] 500mg Take 1 [facility] mg tablet 4-28 tablet by ity o f 00:00: mouth at [place] 00 bedtime. Medical Branch losartan-hy Yes [id number] 1{tbl} Take 1 [facility] drochloroth 4-28 tablet by ity of iazide 00:00: mouth [place] 100-25 mg 00 daily. Medical per tablet Branch amLODIPine Yes [id number] 10mg Take 1 [facility] 10 mg 4-28 tablet by ity of tablet 00:00: mouth [place] 00 daily. Medical Branch metoprolol Yes [id number] 25mg Take 1 [facility] succinate 4-28 tablet by ity o f XL 25 mg 24 00:00: mouth [place] hr tablet 00 daily. Medical Branch mupirocin 2 Yes [id number] Apply to [facility] % ointment 4-28 area(s) 3 ity of 00:00: (three) [place] 00 times Medical daily. Branch Apply 4g to affected area hand buPROPion Yes [id number] 150mg Take 1 [facility] SR 4-28 tablet by ity of (WELLBUTRIN 00:00: mouth 2 [place] SR) 150 mg 00 (two) Medical SR tablet times Branch daily. niacin 500 Yes [id number] 500mg Take 1 [facility] mg tablet 4-28 tablet by ity o f 00:00: mouth at [place] 00 bedtime. Medical Branch losartan-hy Yes [id number] 1{tbl} Take 1 [facility] drochloroth 4-28 tablet by ity of iazide 00:00: mouth [place] 100-25 mg 00 daily. Medical per tablet Branch amLODIPine Yes [id number] 10mg Take 1 [facility] 10 mg 4-28 tablet by ity of tablet 00:00: mouth [place] 00 daily. Medical Branch metoprolol Yes [id number] 25mg Take 1 [facility] succinate 4-28 tablet by ity o f XL 25 mg 24 00:00: mouth [place] hr tablet 00 daily. Medical Branch mupirocin 2 Yes [id number] Apply to [facility] % ointment 4-28 area(s) 3 ity of 00:00: (three) [place] 00 times Medical daily. Branch Apply 4g to affected area hand buPROPion Yes [id number] 150mg Take 1 [facility] SR 4-28 tablet by ity of (WELLBUTRIN 00:00: mouth 2 [place] SR) 150 mg 00 (two) Medical SR tablet times Branch daily. niacin 500 Yes [id number] 500mg Take 1 [facility] mg tablet 4-28 tablet by ity o f 00:00: mouth at [place] 00 bedtime. Medical Branch losartan-hy Yes [id number] 1{tbl} Take 1 [facility] drochloroth 4-28 tablet by ity of iazide 00:00: mouth [place] 100-25 mg 00 daily. Medical per tablet Branch amLODIPine Yes [id number] 10mg Take 1 [facility] 10 mg 4-28 tablet by ity of tablet 00:00: mouth [place] 00 daily. Medical Branch metoprolol Yes [id number] 25mg Take 1 [facility] succinate 4-28 tablet by ity o f XL 25 mg 24 00:00: mouth [place] hr tablet 00 daily. Medical Branch mupirocin 2 Yes [id number] Apply to [facility] % ointment 4-28 area(s) 3 ity of 00:00: (three) [place] 00 times Medical daily. Branch Apply 4g to affected area hand buPROPion Yes [id number] 150mg Take 1 [facility] SR 4-28 tablet by ity of (WELLBUTRIN 00:00: mouth 2 [place] SR) 150 mg 00 (two) Medical SR tablet times Branch daily. niacin 500 Yes [id number] 500mg Take 1 [facility] mg tablet 4-28 tablet by ity o f 00:00: mouth at [place] 00 bedtime. Medical Branch losartan-hy Yes [id number] 1{tbl} Take 1 [facility] drochloroth 4-28 tablet by ity of iazide 00:00: mouth [place] 100-25 mg 00 daily. Medical per tablet Branch amLODIPine Yes [id number] 10mg Take 1 [facility] 10 mg 4-28 tablet by ity of tablet 00:00: mouth [place] 00 daily. Medical Branch metoprolol Yes [id number] 25mg Take 1 [facility] succinate 4-28 tablet by ity o f XL 25 mg 24 00:00: mouth [place] hr tablet 00 daily. Medical Branch mupirocin 2 Yes [id number] Apply to [facility] % ointment 4-28 area(s) 3 ity of 00:00: (three) [place] 00 times Medical daily. Branch Apply 4g to affected area hand buPROPion Yes [id number] 150mg Take 1 [facility] SR 4-28 tablet by ity of (WELLBUTRIN 00:00: mouth 2 [place] SR) 150 mg 00 (two) Medical SR tablet times Branch daily. niacin 500 Yes [id number] 500mg Take 1 [facility] mg tablet 4-28 tablet by ity o f 00:00: mouth at [place] 00 bedtime. Medical Branch losartan-hy Yes [id number] 1{tbl} Take 1 [facility] drochloroth 4-28 tablet by ity of iazide 00:00: mouth [place] 100-25 mg 00 daily. Medical per tablet Branch amLODIPine Yes [id number] 10mg Take 1 [facility] 10 mg 4-28 tablet by ity of tablet 00:00: mouth [place] 00 daily. Medical Branch metoprolol Yes [id number] 25mg Take 1 [facility] succinate 4-28 tablet by ity o f XL 25 mg 24 00:00: mouth [place] hr tablet 00 daily. Medical Branch mupirocin 2 Yes [id number] Apply to [facility] % ointment 4-28 area(s) 3 ity of 00:00: (three) [place] 00 times Medical daily. Branch Apply 4g to affected area hand buPROPion Yes [id number] 150mg Take 1 [facility] SR 4-28 tablet by ity of (WELLBUTRIN 00:00: mouth 2 [place] SR) 150 mg 00 (two) Medical SR tablet times Branch daily. niacin 500 Yes [id number] 500mg Take 1 [facility] mg tablet 4-28 tablet by ity o f 00:00: mouth at [place] 00 bedtime. Medical Branch losartan-hy Yes [id number] 1{tbl} Take 1 [facility] drochloroth 4-28 tablet by ity of iazide 00:00: mouth [place] 100-25 mg 00 daily. Medical per tablet Branch amLODIPine Yes [id number] 10mg Take 1 [facility] 10 mg 4-28 tablet by ity of tablet 00:00: mouth [place] 00 daily. Medical Branch metoprolol Yes [id number] 25mg Take 1 [facility] succinate 4-28 tablet by ity o f XL 25 mg 24 00:00: mouth [place] hr tablet 00 daily. Medical Branch mupirocin 2 Yes [id number] Apply to [facility] % ointment 4-28 area(s) 3 ity of 00:00: (three) [place] 00 times Medical daily. Branch Apply 4g to affected area hand buPROPion Yes [id number] 150mg Take 1 [facility] SR 4-28 tablet by ity of (WELLBUTRIN 00:00: mouth 2 [place] SR) 150 mg 00 (two) Medical SR tablet times Branch daily. niacin 500 Yes [id number] 500mg Take 1 [facility] mg tablet 4-28 tablet by ity o f 00:00: mouth at [place] 00 bedtime. Medical Branch losartan-hy Yes [id number] 1{tbl} Take 1 [facility] drochloroth 4-28 tablet by ity of iazide 00:00: mouth [place] 100-25 mg 00 daily. Medical per tablet Branch amLODIPine Yes [id number] 10mg Take 1 [facility] 10 mg 4-28 tablet by ity of tablet 00:00: mouth [place] 00 daily. Medical Branch metoprolol Yes [id number] 25mg Take 1 [facility] succinate 4-28 tablet by ity o f XL 25 mg 24 00:00: mouth [place] hr tablet 00 daily. Medical Branch mupirocin 2 Yes [id number] Apply to [facility] % ointment 4-28 area(s) 3 ity of 00:00: (three) [place] 00 times Medical daily. Branch Apply 4g to affected area hand niacin 500 Yes [id number] 500mg Take 1 [facility] mg tablet 4-28 tablet by ity o f 00:00: mouth at [place] 00 bedtime. Medical Branch buPROPion 2020- No [id number] 150mg Take 1 [facility] SR 4-28 10-27 tablet by ity of (WELLBUTRIN 00:00: 00:00 mouth 2 [place] SR) 150 mg 00 :00 (two) Medical SR tablet times Branch daily. AMLODIPINE Yes [id number] TAKE 1 [facility] 10 mg 4-15 TABLET BY ity of tablet 00:00: MOUTH [place] 00 EVERY DAY Medical Branch AMLODIPINE 2020- No [id number] TAKE 1 [facility] 10 mg 4-15 04-28 TABLET BY ity of tablet 00:00: 00:00 MOUTH [place] 00 :00 EVERY DAY Medical Branch AMLODIPINE 2020- No [id number] TAKE 1 [facility] 10 mg 4-15 04-28 TABLET BY ity of tablet 00:00: 00:00 MOUTH [place] 00 :00 EVERY DAY Medical Branch FLUTICASONE Yes [id number] SPRAY 1 [facility] PROPIONATE 3-31 SPRAY INTO ity of 50 00:00: EACH [place] mcg/actuati 00 NOSTRIL Medic al on nasal EVERY DAY Branch spray FLUTICASONE Yes [id number] SPRAY 1 [facility] PROPIONATE 3-31 SPRAY INTO ity of 50 00:00: EACH [place] mcg/actuati 00 NOSTRIL Medic al on nasal EVERY DAY Branch spray FLUTICASONE 2020- No [id number] SPRAY 1 [facility] PROPIONATE 3-31 04-28 SPRAY INTO it y of 50 00:00: 00:00 EACH [place] mcg/actuati 00 :00 NOSTRIL Medic al on nasal EVERY DAY Branch spray FLUTICASONE 2020- No [id number] SPRAY 1 [facility] PROPIONATE 3-31 04-28 SPRAY INTO it y of 50 00:00: 00:00 EACH [place] mcg/actuati 00 :00 NOSTRIL Medic al on nasal EVERY DAY Branch spray OMEPRAZOLE 2021-0 Yes Gastroesoph TAKE 1 [facility] 40 mg 3-05 ageal CAPSULE BY ity of capsule 00:00: reflux MOUTH [place] 00 disease EVERY DAY Medical without Branch esophagitis OMEPRAZOLE 2020-0 Yes Gastroesoph TAKE 1 [facility] 40 mg 3-05 ageal CAPSULE BY ity of capsule 00:00: reflux MOUTH [place] 00 disease EVERY DAY Medical without Branch esophagitis OMEPRAZOLE 2020-0 Yes Gastroesoph TAKE 1 [facility] 40 mg 3-05 ageal CAPSULE BY ity of capsule 00:00: reflux MOUTH [place] 00 disease EVERY DAY Medical without Branch esophagitis OMEPRAZOLE 2020-0 Yes [id number] TAKE 1 [facility] 40 mg 3-05 CAPSULE BY ity of capsule 00:00: MOUTH [place] 00 EVERY DAY Medical Branch OMEPRAZOLE 1-0 Yes [id number] TAKE 1 [facility] 40 mg 3-05 CAPSULE BY ity of capsule 00:00: MOUTH [place] 00 EVERY DAY Medical Branch OMEPRAZOLE 1-0 Yes [id number] TAKE 1 [facility] 40 mg 3-05 CAPSULE BY ity of capsule 00:00: MOUTH [place] 00 EVERY DAY Medical Branch OMEPRAZOLE 1-0 Yes [id number] TAKE 1 [facility] 40 mg 3-05 CAPSULE BY ity of capsule 00:00: MOUTH [place] 00 EVERY DAY Medical Branch OMEPRAZOLE 2021-0 Yes [id number] TAKE 1 [facility] 40 mg 3-05 CAPSULE BY ity of capsule 00:00: MOUTH [place] 00 EVERY DAY Medical Branch OMEPRAZOLE 2021-0 Yes [id number] TAKE 1 [facility] 40 mg 3-05 CAPSULE BY ity of capsule 00:00: MOUTH [place] 00 EVERY DAY Medical Branch OMEPRAZOLE 2021-0 Yes [id number] TAKE 1 [facility] 40 mg 3-05 CAPSULE BY ity of capsule 00:00: MOUTH [place] 00 EVERY DAY Medical Branch OMEPRAZOLE 2021-0 Yes [id number] TAKE 1 [facility] 40 mg 3-05 CAPSULE BY ity of capsule 00:00: MOUTH [place] 00 EVERY DAY Medical Branch OMEPRAZOLE 2021-0 Yes [id number] TAKE 1 [facility] 40 mg 3-05 CAPSULE BY ity of capsule 00:00: MOUTH [place] 00 EVERY DAY Medical Branch OMEPRAZOLE 2021-0 Yes [id number] TAKE 1 [facility] 40 mg 3-05 CAPSULE BY ity of capsule 00:00: MOUTH [place] 00 EVERY DAY Medical Branch OMEPRAZOLE 2021-0 Yes [id number] TAKE 1 [facility] 40 mg 3-05 CAPSULE BY ity of capsule 00:00: MOUTH [place] 00 EVERY DAY Medical Branch OMEPRAZOLE 2020-0 Yes [id number] TAKE 1 [facility] 40 mg 3-05 CAPSULE BY ity of capsule 00:00: MOUTH [place] 00 EVERY DAY Medical Branch OMEPRAZOLE 2020-0 Yes [id number] TAKE 1 [facility] 40 mg 3-05 CAPSULE BY ity of capsule 00:00: MOUTH [place] 00 EVERY DAY Medical Branch OMEPRAZOLE 2020-0 Yes [id number] TAKE 1 [facility] 40 mg 3-05 CAPSULE BY ity of capsule 00:00: MOUTH [place] 00 EVERY DAY Medical Branch OMEPRAZOLE 2020-0 Yes [id number] TAKE 1 [facility] 40 mg 3-05 CAPSULE BY ity of capsule 00:00: MOUTH [place] 00 EVERY DAY Medical Branch OMEPRAZOLE 2020-0 Yes [id number] TAKE 1 [facility] 40 mg 3-05 CAPSULE BY ity of capsule 00:00: MOUTH [place] 00 EVERY DAY Medical Branch OMEPRAZOLE 2020-0 Yes [id number] TAKE 1 [facility] 40 mg 3-05 CAPSULE BY ity of capsule 00:00: MOUTH [place] 00 EVERY DAY Medical Branch OMEPRAZOLE 2020-0 2021- No [id number] TAKE 1 [facility] 40 mg 3-05 05-28 CAPSULE BY ity of capsule 00:00: 00:00 MOUTH [place] 00 :00 EVERY DAY Medical Branch FLUTICASONE 2020-0 Yes [id number] SPRAY 1 [facility] PROPIONATE 1-20 SPRAY INTO ity of 50 00:00: EACH [place] mcg/actuati 00 NOSTRIL Medic al on nasal EVERY DAY Branch spray FLUTICASONE 0 Yes [id number] SPRAY 1 [facility] PROPIONATE 1-20 SPRAY INTO ity of 50 00:00: EACH [place] mcg/actuati 00 NOSTRIL Medic al on nasal EVERY DAY Branch spray FLUTICASONE 2020-0 2021- No [id number] SPRAY 1 [facility] PROPIONATE 1-20 03-31 SPRAY INTO it y of 50 00:00: 00:00 EACH [place] mcg/actuati 00 :00 NOSTRIL Medic al on nasal EVERY DAY Branch spray cetirizine 2019-07 Yes [id number] 10mg Take 1 [facility] (ZYRTEC) 10 2-29 tablet by ity of mg tablet 00:00: mouth [place] 00 daily. Medical Branch fluticasone 2019-07 Yes [id number] 1{spray Use 1 [facility] propionate 2-29 } [place] in ity o f 50 00:00: each [place] mcg/actuati 00 nostril Medic al on nasal daily. [place] spray cetirizine 2019-07 Yes [id number] 10mg Take 1 [facility] (ZYRTEC) 10 2-29 tablet by ity of mg tablet 00:00: mouth [place] 00 daily. [facility] cetirizine 2019-07 Yes [id number] 10mg Take 1 [facility] (ZYRTEC) 10 2-29 tablet by ity of mg tablet 00:00: mouth [place] 00 daily. [facility] cetirizine 2019-07 Yes [id number] 10mg Take 1 [facility] (ZYRTEC) 10 2-29 tablet by ity of mg tablet 00:00: mouth [place] 00 daily. [facility] cetirizine 2019-07 Yes [id number] 10mg Take 1 [facility] (ZYRTEC) 10 2-29 tablet by ity of mg tablet 00:00: mouth [place] 00 daily. [facility] cetirizine 2019-07- No [id number] 10mg Take 1 [facility] (ZYRTEC) 10 2-29 04-28 tablet by it y of mg tablet 00:00: 00:00 mouth [place] 00 :00 daily. [facility] cetirizine 2019-07- No [id number] 10mg Take 1 [facility] (ZYRTEC) 10 2-29 04-28 tablet by it y of mg tablet 00:00: 00:00 mouth [place] 00 :00 daily. [facility] fluticasone 2019-07- No [id number] 1{spray Use 1 [facility] propionate 2-29 -20 } [place] in ity of 50 00:00: 00:00 each [place] mcg/actuati 00 :00 nostril Medic al on nasal daily. [place] spray OMEPRAZOLE 2019-07 Yes [id number] TAKE 1 [facility] 40 mg 2-10 CAPSULE BY ity of capsule 00:00: MOUTH [place] 00 EVERY DAY [facility] OMEPRAZOLE 2019-07 Yes [id number] TAKE 1 [facility] 40 mg 2-10 CAPSULE BY ity of capsule 00:00: MOUTH [place] 00 EVERY DAY [facility] OMEPRAZOLE 2019- Yes [id number] TAKE 1 [facility] 40 mg 2-10 CAPSULE BY ity of capsule 00:00: MOUTH [place] 00 EVERY DAY [facility] OMEPRAZOLE 2019-07- No [id number] TAKE 1 [facility] 40 mg 2-10 03-05 CAPSULE BY ity of capsule 00:00: 00:00 MOUTH [place] 00 :00 EVERY DAY Medical Branch amLODIPine 2019- Yes [id number] 10mg Take 1 [facility] 10 mg 0-13 tablet by ity of tablet 00:00: mouth [place] 00 daily. Medical Branch amLODIPine 2019-07 Yes [id number] 10mg Take 1 [facility] 10 mg 0-13 tablet by ity of tablet 00:00: mouth [place] 00 daily. Medical Branch amLODIPine 2019-07 Yes [id number] 10mg Take 1 [facility] 10 mg 0-13 tablet by ity of tablet 00:00: mouth [place] 00 daily. Medical Branch amLODIPine 2019-07 Yes [id number] 10mg Take 1 [facility] 10 mg 0-13 tablet by ity of tablet 00:00: mouth [place] 00 daily. Medical Branch amLODIPine 2019-07 Yes [id number] 10mg Take 1 [facility] 10 mg 0-13 tablet by ity of tablet 00:00: mouth [place] 00 daily. Medical Branch amLODIPine 2019-07 Yes [id number] 10mg Take 1 [facility] 10 mg 0-13 tablet by ity of tablet 00:00: mouth [place] 00 daily. Medical Branch amLODIPine 2019-07- No [id number] 10mg Take 1 [facility] 10 mg 0-13 04-15 tablet by ity of tablet 00:00: 00:00 mouth [place] 00 :00 daily. Medical Branch tadalafiL Yes Erectile 10mg Take 1 [place] ([facility]) 10 9-24 dysfunction tablet by ity of mg tablet 00:00: , mouth [place] 00 unspecified needed for Me dical erectile Erectile Branch dysfunction dysfunctio type n (30 mins prior to sexual activity). tadalafiL 2020 Yes Erectile 10mg Take 1 [place] (CIAL[facility]) 10 9-24 dysfunction tablet by ity of mg tablet 00:00: , mouth [place] 00 unspecified needed for Me dical erectile Erectile Branch dysfunction dysfunctio type n (30 mins prior to sexual activity). tadalafiL Yes Erectile 10mg Take 1 [place] (CIAL[facility]) 10 9-24 dysfunction tablet by ity of mg tablet 00:00: , mouth as [place] 00 unspecified needed for Me dical erectile Erectile Branch dysfunction dysfunctio type n (30 mins prior to sexual activity). tadalafiL 2020-0 Yes [id number] 10mg Take 1 [facility] (CIALIS) 10 9-24 tablet by ity of mg tablet 00:00: mouth as [place] 00 needed for Medical Erectile Branch dysfunctio n (30 mins prior to sexual activity). tadalafiL 2020-0 Yes [id number] 10mg Take 1 [facility] (CIALIS) 10 9-24 tablet by ity of mg tablet 00:00: mouth as [place] 00 needed for Medical Erectile Branch dysfunctio n (30 mins prior to sexual activity). tadalafiL 2020-0 Yes [id number] 10mg Take 1 [facility] (CIALIS) 10 9-24 tablet by [facility] of mg tablet 00:00: mouth as [place] 00 needed for Medical Erectile Branch dysfunctio n (30 mins prior to sexual activity). tadalafiL 2020-0 Yes [id number] 10mg Take 1 [facility] (CIALIS) 10 9-24 tablet by [facility] of mg tablet 00:00: mouth as [place] 00 needed for Medical Erectile Branch dysfunctio n (30 mins prior to sexual activity). tadalafiL 2020-0 Yes [id number] 10mg Take 1 [facility] (CIALIS) 10 9-24 tablet by [facility]y of mg tablet 00:00: mouth as [place] 00 needed for Medical Erectile Branch dysfunctio n (30 mins prior to sexual activity). tadalafiL 2020-0 Yes [id number] 10mg Take 1 [facility] (CIALIS) 10 9-24 tablet by [facility]y of mg tablet 00:00: mouth as [place] 00 needed for Medical Erectile Branch dysfunctio n (30 mins prior to sexual activity). tadalafiL 2020-0 Yes [id number] 10mg Take 1 [facility] (CIALIS) 10 9-24 tablet by ity of mg tablet 00:00: mouth as [place] 00 needed for Medical Erectile Branch dysfunctio n (30 mins prior to sexual activity). tadalafiL 2020-0 Yes [id number] 10mg Take 1 [facility] (CIALIS) 10 9-24 tablet by ity of mg tablet 00:00: mouth as [place] 00 needed for Medical Erectile Branch dysfunctio n (30 mins prior to sexual activity). tadalafiL 2020-0 Yes [id number] 10mg Take 1 [facility] (CIALIS) 10 9-24 tablet by ity of mg tablet 00:00: mouth as [place] 00 needed for Medical Erectile Branch dysfunctio n (30 mins prior to sexual activity). tadalafiL 2020-0 Yes [id number] 10mg Take 1 [facility] (CIALIS) 10 9-24 tablet by [facility] of mg tablet 00:00: mouth as [place] 00 needed for Medical Erectile Branch dysfunctio n (30 mins prior to sexual activity). tadalafiL 2020-0 Yes [id number] 10mg Take 1 [facility] (CIALIS) 10 9-24 tablet by [facility]y of mg tablet 00:00: mouth as [place] 00 needed for Medical Erectile Branch dysfunctio n (30 mins prior to sexual activity). tadalafiL 2020-0 Yes [id number] 10mg Take 1 [facility] (CIALIS) 10 9-24 tablet by [facility]y of mg tablet 00:00: mouth as [place] 00 needed for Medical Erectile Branch dysfunctio n (30 mins prior to sexual activity). tadalafiL 2020-0 Yes [id number] 10mg Take 1 [facility] (CIALIS) 10 9-24 tablet by [facility]y of mg tablet 00:00: mouth as [place] 00 needed for Medical Erectile Branch dysfunctio n (30 mins prior to sexual activity). tadalafiL 2020-0 Yes [id number] 10mg Take 1 [facility] (CIALIS) 10 9-24 tablet by ity of mg tablet 00:00: mouth as [place] 00 needed for Medical Erectile Branch dysfunctio n (30 mins prior to sexual activity). tadalafiL 2020-0 Yes [id number] 10mg Take 1 [facility] (CIALIS) 10 9-24 tablet by ity of mg tablet 00:00: mouth as [place] 00 needed for Medical Erectile Branch dysfunctio n (30 mins prior to sexual activity). tadalafiL 2020-0 Yes [id number] 10mg Take 1 [facility] (CIALIS) 10 9-24 tablet by [facility] of mg tablet 00:00: mouth as [place] 00 needed for Medical Erectile Branch dysfunctio n (30 mins prior to sexual activity). tadalafiL 2020-0 Yes [id number] 10mg Take 1 [facility] (CIALIS) 10 9-24 tablet by [facility] of mg tablet 00:00: mouth as [place] 00 needed for Medical Erectile Branch dysfunctio n (30 mins prior to sexual activity). tadalafiL 2020-0 Yes [id number] 10mg Take 1 [facility] (CIALIS) 10 9-24 tablet by [facility] [place] [facility] Erectile Branch dysfunctio n (30 mins prior to sexual activity). tadalafiL 2020-0 Yes [id number] 10mg Take 1 [facility] (CIALIS) 10 9-24 tablet by [facility] [place] needed for Medical Erectile Branch dysfunctio n (30 mins prior to sexual activity). tadalafiL 2020-0 Yes [id number] 10mg Take 1 [facility] (CIALIS) 10 9-24 tablet by [facility] [place]: [place] needed for Medical Erectile Branch dysfunctio n (30 mins prior to sexual activity). tadalafiL 2020-0 Yes [id number] 10mg Take 1 [facility] (CIALIS) 10 9-24 tablet by [facility] tablet [place]: [place] needed for Medical Erectile Branch dysfunctio n (30 mins prior to sexual activity). tadalafiL 2020-0 Yes [id number] 10mg Take 1 [facility] (CIALIS) 10 9-24 tablet by [facility] tablet [place]: [place] needed for Medical Erectile Branch dysfunctio n (30 mins prior to sexual activity). tadalafiL 2020-0 Yes [id number] 10mg Take 1 [facility] (CIALIS) 10 9-24 tablet by [facility] tablet 00:00: [place] needed for Medical Erectile Branch dysfunctio n (30 mins prior to sexual activity). tadalafiL 2020-0 Yes [id number] 10mg Take 1 [facility] (CIALIS) 10 9-24 tablet by [facility] tablet 00:00: mouth [place] needed for Medical Erectile Branch dysfunctio n (30 mins prior to sexual activity). tadalafiL 2020-0 Yes [id number] 10mg Take 1 [facility] (CIALIS) 10 9-24 tablet by [facility] mg tablet 00:00: mouth [place] needed for Medical Erectile Branch dysfunctio n (30 mins prior to sexual activity). tadalafiL 2020-0 Yes [id number] 10mg Take 1 [facility] (CIALIS) 10 9-24 tablet by [facility] tablet 00:00: mouth [place] needed for Medical Erectile Branch dysfunctio n (30 mins prior to sexual activity). tadalafiL 2020-0 Yes [id number] 10mg Take 1 [facility] (CIALIS) 10 9-24 tablet by [facility] mg tablet 00:00: mouth [place] needed for Medical Erectile Branch dysfunctio n (30 mins prior to sexual activity). tadalafiL 2020-0 Yes [id number] 10mg Take 1 [facility] (CIALIS) 10 9-24 tablet by [facility] mg tablet 00:00: mouth [place] needed for Medical Erectile Branch dysfunctio n (30 mins prior to sexual activity). tadalafiL 2020-0 Yes [id number] 10mg Take 1 [facility] (CIALIS) 10 9-24 tablet by [facility] tablet 00:00: mouth [place] needed for Medical Erectile Branch dysfunctio n (30 mins prior to sexual activity). tadalafiL 2020-0 Yes [id number] 10mg Take 1 [facility] (CIALIS) 10 9-24 tablet by [facility] tablet 00:00: mouth [place] needed for Medical Erectile Branch dysfunctio n (30 mins prior to sexual activity). HYDROcodone 2020-0 Yes .5{tbl} Take 0.5 [facility] -acetaminop 9-01 tablets by it y of hen 7.5-325 14:04: mouth [place] mg per 34 every 4 Medical tablet (four) Branch hours. citalopram 2020-0 Yes 20mg Take 20 mg [facility] 20 mg 9-01 by mouth ity of tablet 14:04: daily. [place] [address] Medical Branch ARIPiprazol 2020-0 Yes 10mg Take 10 mg [facility] 10 mg 9-01 by mouth ity of tablet 14:04: daily. [place] [address] Medical Branch traZODone 2020-0 Yes 50mg Take 50 mg [facility] [place] 50 mg 9-01 by mouth ity of tablet 14:04: at [place] [address] bedtime. Medical Branch HYDROcodone 2020-0 Yes .5{tbl} Take 0.5 [facility] -acetaminop 9-01 tablets by it y of hen 7.5-325 14:04: mouth [place] mg per 34 every 4 Medical tablet (four) Branch hours. citalopram 2020-0 Yes 20mg Take 20 mg [facility] 20 mg 9-01 by mouth ity of tablet 14:04: daily. [place] [address] Medical Branch ARIPiprazol 2020-0 Yes 10mg Take 10 mg [facility] 10 mg 9-01 by mouth ity of tablet 14:04: daily. [place] [address] Medical Branch traZODone 2020-0 Yes 50mg Take 50 mg [place] 50 mg 9-01 by mouth ity of tablet 14:04: at [place] [address] bedtime. Medical Branch HYDROcodone 2020-0 Yes .5{tbl} Take 0.5 [facility] -acetaminop 9-01 tablets by it y of hen 7.5-325 14:04: mouth [place] mg per 34 every 4 Medical tablet (four) Branch hours. citalopram 2020-0 Yes 20mg Take 20 mg [facility] 20 mg 9-01 by mouth ity of tablet 14:04: daily. [place] [address] Medical Branch ARIPiprazol 2020-0 Yes 10mg Take 10 mg [facility] 10 mg 9-01 by mouth ity of tablet 14:04: daily. [place] [address] Medical Branch traZODone 2020-0 Yes 50mg Take 50 mg [place] 50 mg 9-01 by mouth ity of tablet 14:04: at [place] [address] bedtime. Medical Branch HYDROcodone 2020-0 Yes .5{tbl} Take 0.5 [facility] -acetaminop 9-01 tablets by it y of hen 7.5-325 14:04: mouth [place] mg per 34 every 4 Medical tablet (four) Branch hours. citalopram 2020-0 Yes 20mg Take 20 mg [facility] 20 mg 9-01 by mouth ity of tablet 14:04: daily. [place] [address] Medical Branch ARIPiprazol 2020-0 Yes 10mg Take 10 mg [facility] 10 mg 9-01 by mouth ity of tablet 14:04: daily. [place] [address] [facility] Branch traZODone 2020-0 Yes 50mg Take 50 mg [place] 50 mg 9-01 by mouth ity of tablet 14:04: at [place] [address] bedtime. Medical Branch HYDROcodone 2020-0 Yes .5{tbl} Take 0.5 [facility] -acetaminop 9-01 tablets by it y of hen 7.5-325 14:04: mouth [place] mg per 34 every 4 Medical tablet (four) Branch hours. citalopram 2020-0 Yes 20mg Take 20 mg [facility] 20 mg 9-01 by mouth ity of tablet 14:04: daily. [place] [address] Medical Branch ARIPiprazol 2020-0 Yes 10mg Take 10 mg [facility] 10 mg 9-01 by mouth ity of tablet 14:04: daily. [place] [address] Medical Branch traZODone 2020-0 Yes 50mg Take 50 mg [place] 50 mg 9-01 by mouth ity of tablet 14:04: at [place] [address] bedtime. Medical Branch HYDROcodone 2020-0 Yes .5{tbl} Take 0.5 [facility] -acetaminop 9-01 tablets by it y of hen 7.5-325 14:04: mouth [place] mg per 34 every 4 Medical tablet (four) Branch hours. citalopram 2020-0 Yes 20mg Take 20 mg [facility] 20 mg 9-01 by mouth ity of tablet 14:04: daily. [place] [address] Medical Branch ARIPiprazol 2020-0 Yes 10mg Take 10 mg [facility] 10 mg 9-01 by mouth ity of tablet 14:04: daily. [place] [address] Medical Branch traZODone 2020-0 Yes 50mg Take 50 mg [place] 50 mg 9-01 by mouth ity of tablet 14:04: at [place] [address] bedtime. Medical Branch HYDROcodone 2020-0 Yes .5{tbl} Take 0.5 [facility] -acetaminop 9-01 tablets by it y of hen 7.5-325 14:04: mouth [place] mg per 34 every 4 Medical tablet (four) Branch hours. citalopram 2020-0 Yes 20mg Take 20 mg [facility] 20 mg 9-01 by mouth ity of tablet 14:04: daily. [place] [address] Medical Branch ARIPiprazol 2020-0 Yes 10mg Take 10 mg [facility] 10 mg 9-01 by mouth ity of tablet 14:04: daily. [place] [address] Medical Branch traZODone 2020-0 Yes 50mg Take 50 mg [place] 50 mg 9-01 by mouth ity of tablet 14:04: at [place] [address] bedtime. Medical Branch HYDROcodone 2020-0 Yes .5{tbl} Take 0.5 [facility] -acetaminop 9-01 tablets by it y of hen 7.5-325 14:04: mouth [place] mg per 34 every 4 Medical tablet (four) Branch hours. citalopram 2020-0 Yes 20mg Take 20 mg [facility] 20 mg 9-01 by mouth ity of tablet 14:04: daily. [place] [address] Medical Branch ARIPiprazol 2020-0 Yes 10mg Take 10 mg [facility] 10 mg 9-01 by mouth ity of tablet 14:04: daily. [place] [address] [facility] Branch traZODone 2020-0 Yes 50mg Take 50 mg [place] 50 mg 9-01 by mouth ity of tablet 14:04: at [place] [address] bedtime. Medical Branch HYDROcodone 2020-0 Yes .5{tbl} Take 0.5 [facility] -acetaminop 9-01 tablets by it y of hen 7.5-325 14:04: mouth [place] mg per 34 every 4 Medical tablet (four) Branch hours. citalopram 2020-0 Yes 20mg Take 20 mg [facility] 20 mg 9-01 by mouth ity of tablet 14:04: daily. [place] [address] Medical Branch ARIPiprazol 2020-0 Yes 10mg Take 10 mg [facility] 10 mg 9-01 by mouth ity of tablet 14:04: daily. [place] [address] [facility] Branch traZODone 2020-0 Yes 50mg Take 50 mg [place] 50 mg 9-01 by mouth ity of tablet 14:04: at [place] [address] bedtime. Medical Branch HYDROcodone 2020-0 Yes .5{tbl} Take 0.5 [facility] -acetaminop 9-01 tablets by it y of hen 7.5-325 14:04: mouth [place] mg per 34 every 4 Medical tablet (four) Branch hours. citalopram 2020-0 Yes 20mg Take 20 mg [facility] 20 mg 9-01 by mouth ity of tablet 14:04: daily. [place] [address] [facility] Branch ARIPiprazol 2020-0 Yes 10mg Take 10 mg [facility] 10 mg 9-01 by mouth ity of tablet 14:04: daily. [place] [address] [facility] Branch traZODone 2020-0 Yes 50mg Take 50 mg [place] 50 mg 9-01 by mouth ity of tablet 14:04: at [place] [address] bedtime. Medical Branch HYDROcodone 2020-0 Yes .5{tbl} Take 0.5 [facility] -acetaminop 9-01 tablets by it y of hen 7.5-325 14:04: mouth [place] mg per 34 every 4 Medical tablet (four) Branch hours. citalopram 2020-0 Yes 20mg Take 20 mg [facility] 20 mg 9-01 by mouth ity of tablet 14:04: daily. [place] [address] Medical Branch ARIPiprazol 2020-0 Yes 10mg Take 10 mg [facility] 10 mg 9-01 by mouth ity of tablet 14:04: daily. [place] [address] [facility] Branch traZODone 2020-0 Yes 50mg Take 50 mg [place] 50 mg 9-01 by mouth ity of tablet 14:04: at [place] [address] bedtime. Medical Branch HYDROcodone 2020-0 Yes .5{tbl} Take 0.5 [facility] -acetaminop 9-01 tablets by it y of hen 7.5-325 14:04: mouth [place] mg per 34 every 4 Medical tablet (four) Branch hours. citalopram 2020-0 Yes 20mg Take 20 mg [facility] 20 mg 9-01 by mouth ity of tablet 14:04: daily. [place] [address] Medical Branch ARIPiprazol 2020-0 Yes 10mg Take 10 mg [facility] 10 mg 9-01 by mouth ity of tablet 14:04: daily. [place] [address] Medical Branch traZODone 2020-0 Yes 50mg Take 50 mg [place] 50 mg 9-01 by mouth ity of tablet 14:04: at [place] [address] bedtime. Medical Branch HYDROcodone 2020-0 Yes .5{tbl} Take 0.5 [facility] -acetaminop 9-01 tablets by it y of hen 7.5-325 14:04: mouth [place] mg per 34 every 4 Medical tablet (four) Branch hours. citalopram 2020-0 Yes 20mg Take 20 mg [facility] 20 mg 9-01 by mouth ity of tablet 14:04: daily. [place] [address] Medical Branch ARIPiprazol 2020-0 Yes 10mg Take 10 mg [facility] 10 mg 9-01 by mouth ity of tablet 14:04: daily. [address] Branch traZODone 2020-0 Yes 50mg Take 50 mg [place] 50 mg 9-01 by mouth ity of tablet 14:04: at [place] [address] bedtime. Medical Branch HYDROcodone 2020-0 Yes .5{tbl} Take 0.5 [facility] -acetaminop 9-01 tablets by it y of hen 7.5-325 14:04: mouth [place] mg formerly [facility] 34 every 4 Medical tablet (four) Branch hours. citalopram 2020-0 Yes 20mg Take 20 mg [facility] 20 mg 9-01 by mouth ity of tablet 14:04: daily. [address] Branch ARIPiprazol 2020-0 Yes 10mg Take 10 mg [facility] 10 mg 9-01 by mouth ity of tablet 14:04: daily. [address] Branch traZODone 2020-0 Yes 50mg Take 50 mg [place] 50 mg 9-01 by mouth ity of tablet 14:04: at [place] [address] bedtime. Medical Branch citalopram 2020-0 Yes 20mg Take 20 mg [facility] 20 mg 9-01 by mouth ity of tablet 14:04: daily. [address] Branch ARIPiprazol 2020-0 Yes 10mg Take 10 mg [facility] 10 mg 9-01 by mouth ity of tablet 14:04: daily. [place] [address] Medical Branch traZODone 2020-0 Yes 50mg Take 50 mg [place] 50 mg 9-01 by mouth ity of tablet 14:04: at [place] [address] bedtime. Medical Branch citalopram 2020-0 Yes 20mg Take 20 mg [facility] 20 mg 9-01 by mouth ity of tablet 14:04: daily. [address] Branch ARIPiprazol 2020-0 Yes 10mg Take 10 mg [facility] 10 mg 9-01 by mouth ity of tablet 14:04: daily. [address] Branch traZODone 2020-0 Yes 50mg Take 50 mg [place] 50 mg 9-01 by mouth ity of tablet 14:04: at [place] [address] bedtime. Medical Branch citalopram 2020-0 Yes 20mg Take 20 mg [facility] 20 mg 03-23 by mouth ity of tablet 14:04: daily. [place] [address] Medical Branch ARIPiprazol 2020-0 Yes 10mg Take 10 mg [facility] 10 mg 03-23 by mouth ity of tablet 14:04: daily. [place] [address] Medical Branch traZODone 2020-0 Yes 50mg Take 50 mg [place] 50 mg 03-23 by mouth ity of tablet 14:04: at [place] [address] bedtime. Medical Branch sildenafiL 2020-0 Yes [id number] 25mg Take 1 [facility] (VIAGRA) 25 03-23 tablet by [facility] mg tablet 00:[place]: [place] needed Medical (Erectile Branch dysfunctio n). Take 1 Tab 30 mins to 1 Hr prior to sexual encounter. Max 2 Tabs within 24H. Do not mix with alcohol or other medication s. nicotine 14 2019- Yes [id number] 1{patch Apply 1 [facility] mg/24 hr 9 } Patch to ity of patch 00:00: area(s) [place] 00 every 24 Medical (twenty-fo Branch ur) hours. Apply 21mg patch daily x 6 weeks, then apply 14mg patch daily x 2 weeks, then apply 7mg patch daily x 2 weeks. Stop smoking with onset of treatment. nicotine 21 2019-0 Yes [id number] 1{patch Apply 1 [facility] mg/24 hr 9 } Patch to ity of patch 00:00: area(s) [place] 00 every 24 Medical (twenty-fo Branch ur) hours. Apply 21mg patch daily x 6 weeks, then apply 14mg patch daily x 2 weeks, then apply 7mg patch daily x 2 weeks. Stop smoking with onset of treatment. nicotine 7 2019-0 Yes [id number] 1{patch Apply 1 [facility] mg/24 hr 9- } Patch to ity of patch 00:00: area(s) [place] 00 every 24 Medical (twenty-fo Branch ur) hours. Apply 21mg patch daily x 6 weeks, then apply 14mg patch daily x 2 weeks, then apply 7mg patch daily x 2 weeks. Stop smoking with onset of treatment. sildenafiL 2019-0 Yes [id number] 25mg Take 1 [facility] (VIAGRA) 25 9- tablet by ity of mg tablet 00:00: mouth [place] 00 needed Medical (Erectile Branch dysfunctio n). Take 1 Tab 30 mins to 1 Hr prior to sexual encounter. Max 2 Tabs within 24H. Do not mix with alcohol or other medication s. nicotine 14 Yes [id number] 1{patch Apply 1 [facility] mg/24 hr 9- } Patch to ity of patch 00:00: area(s) [place] 00 every 24 Medical (twenty-fo Branch ur) hours. Apply 21mg patch daily x 6 weeks, then apply 14mg patch daily x 2 weeks, then apply 7mg patch daily x 2 weeks. Stop smoking with onset of treatment. nicotine 21 Yes [id number] 1{patch Apply 1 [facility] mg/24 hr 9- } Patch to ity of patch 00:00: area(s) [place] 00 every 24 Medical (twenty-fo Branch ur) hours. Apply 21mg patch daily x 6 weeks, then apply 14mg patch daily x 2 weeks, then apply 7mg patch daily x 2 weeks. Stop smoking with onset of treatment. nicotine 7 Yes [id number] 1{patch Apply 1 [facility] mg/24 hr 9 } Patch to ity of patch 00:00: area(s) [place] 00 every 24 Medical (twenty-fo Branch ur) hours. Apply 21mg patch daily x 6 weeks, then apply 14mg patch daily x 2 weeks, then apply 7mg patch daily x 2 weeks. Stop smoking with onset of treatment. sildenafiL Yes [id number] 25mg Take 1 [facility] (VIAGRA) 25 03-23 tablet by ity of mg tablet 00:00: mouth [place] 00 needed Medical (Erectile Branch dysfunctio n). Take 1 Tab 30 mins to 1 Hr prior to sexual encounter. Max 2 Tabs within 24H. Do not mix with alcohol or other medication s. nicotine 14 2019- Yes [id number] 1{patch Apply 1 [facility] mg/24 hr 9- } Patch to ity of patch 00:00: area(s) [place] 00 every 24 Medical (twenty-fo Branch ur) hours. Apply 21mg patch daily x 6 weeks, then apply 14mg patch daily x 2 weeks, then apply 7mg patch daily x 2 weeks. Stop smoking with onset of treatment. nicotine 21 2019- Yes [id number] 1{patch Apply 1 [facility] mg/24 hr 9-01 } Patch to ity of patch 00:00: area(s) [place] 00 every 24 Medical (twenty-fo Branch ur) hours. Apply 21mg patch daily x 6 weeks, then apply 14mg patch daily x 2 weeks, then apply 7mg patch daily x 2 weeks. Stop smoking with onset of treatment. nicotine 7 2019-0 Yes [id number] 1{patch Apply 1 [facility] mg/24 hr 9-01 } Patch to ity of patch 00:00: area(s) [place] 00 every 24 Medical (twenty-fo Branch ur) hours. Apply 21mg patch daily x 6 weeks, then apply 14mg patch daily x 2 weeks, then apply 7mg patch daily x 2 weeks. Stop smoking with onset of treatment. nicotine 14 2019-0 Yes [id number] 1{patch Apply 1 [facility] mg/24 hr 9-01 } Patch to ity of patch 00:00: area(s) [place] 00 every 24 Medical (twenty-fo Branch ur) hours. Apply 21mg patch daily x 6 weeks, then apply 14mg patch daily x 2 weeks, then apply 7mg patch daily x 2 weeks. Stop smoking with onset of treatment. nicotine 21 2019-0 Yes [id number] 1{patch Apply 1 [facility] mg/24 hr 9-01 } Patch to ity of patch 00:00: area(s) [place] 00 every 24 Medical (twenty-fo Branch ur) hours. Apply 21mg patch daily x 6 weeks, then apply 14mg patch daily x 2 weeks, then apply 7mg patch daily x 2 weeks. Stop smoking with onset of treatment. nicotine 7 2019-0 Yes [id number] 1{patch Apply 1 [facility] mg/24 hr 9-01 } Patch to ity of patch 00:00: area(s) [place] 00 every 24 Medical (twenty-fo Branch ur) hours. Apply 21mg patch daily x 6 weeks, then apply 14mg patch daily x 2 weeks, then apply 7mg patch daily x 2 weeks. Stop smoking with onset of treatment. nicotine 14 2019-0 Yes [id number] 1{patch Apply 1 [facility] mg/24 hr 9-01 } Patch to ity of patch 00:00: area(s) [place] 00 every 24 Medical (twenty-fo Branch ur) hours. Apply 21mg patch daily x 6 weeks, then apply 14mg patch daily x 2 weeks, then apply 7mg patch daily x 2 weeks. Stop smoking with onset of treatment. nicotine 21 2019-0 Yes [id number] 1{patch Apply 1 [facility] mg/24 hr 9-01 } Patch to ity of patch 00:00: area(s) [place] 00 every 24 Medical (twenty-fo Branch ur) hours. Apply 21mg patch daily x 6 weeks, then apply 14mg patch daily x 2 weeks, then apply 7mg patch daily x 2 weeks. Stop smoking with onset of treatment. nicotine 7 2019-0 Yes [id number] 1{patch Apply 1 [facility] mg/24 hr 9-01 } Patch to ity of patch 00:00: area(s) [place] 00 every 24 Medical (twenty-fo Branch ur) hours. Apply 21mg patch daily x 6 weeks, then apply 14mg patch daily x 2 weeks, then apply 7mg patch daily x 2 weeks. Stop smoking with onset of treatment. nicotine 14 2019-0 Yes [id number] 1{patch Apply 1 [facility] mg/24 hr 9-01 } Patch to ity of patch 00:00: area(s) [place] 00 every 24 Medical (twenty-fo Branch ur) hours. Apply 21mg patch daily x 6 weeks, then apply 14mg patch daily x 2 weeks, then apply 7mg patch daily x 2 weeks. Stop smoking with onset of treatment. nicotine 21 2019-0 Yes [id number] 1{patch Apply 1 [facility] mg/24 hr 9-01 } Patch to ity of patch 00:00: area(s) [place] 00 every 24 Medical (twenty-fo Branch ur) hours. Apply 21mg patch daily x 6 weeks, then apply 14mg patch daily x 2 weeks, then apply 7mg patch daily x 2 weeks. Stop smoking with onset of treatment. nicotine 7 2019-0 Yes [id number] 1{patch Apply 1 [facility] mg/24 hr 9-01 } Patch to ity of patch 00:00: area(s) [place] 00 every 24 Medical (twenty-fo Branch ur) hours. Apply 21mg patch daily x 6 weeks, then apply 14mg patch daily x 2 weeks, then apply 7mg patch daily x 2 weeks. Stop smoking with onset of treatment. nicotine 14 2019-0 Yes [id number] 1{patch Apply 1 [facility] mg/24 hr 9-01 } Patch to ity of patch 00:00: area(s) [place] 00 every 24 Medical (twenty-fo Branch ur) hours. Apply 21mg patch daily x 6 weeks, then apply 14mg patch daily x 2 weeks, then apply 7mg patch daily x 2 weeks. Stop smoking with onset of treatment. nicotine 21 2019-0 Yes [id number] 1{patch Apply 1 [facility] mg/24 hr 9-01 } Patch to ity of patch 00:00: area(s) [place] 00 every 24 Medical (twenty-fo Branch ur) hours. Apply 21mg patch daily x 6 weeks, then apply 14mg patch daily x 2 weeks, then apply 7mg patch daily x 2 weeks. Stop smoking with onset of treatment. nicotine 7 2019- Yes [id number] 1{patch Apply 1 [facility] mg/24 hr 9-01 } Patch to ity of patch 00:00: area(s) [place] 00 every 24 Medical (twenty-fo Branch ur) hours. Apply 21mg patch daily x 6 weeks, then apply 14mg patch daily x 2 weeks, then apply 7mg patch daily x 2 weeks. Stop smoking with onset of treatment. nicotine 14 2019- Yes [id number] 1{patch Apply 1 [facility] mg/24 hr 9-01 } Patch to ity of patch 00:00: area(s) [place] 00 every 24 Medical (twenty-fo Branch ur) hours. Apply 21mg patch daily x 6 weeks, then apply 14mg patch daily x 2 weeks, then apply 7mg patch daily x 2 weeks. Stop smoking with onset of treatment. nicotine 21 2019- Yes [id number] 1{patch Apply 1 [facility] mg/24 hr 9-01 } Patch to ity of patch 00:00: area(s) [place] 00 every 24 Medical (twenty-fo Branch ur) hours. Apply 21mg patch daily x 6 weeks, then apply 14mg patch daily x 2 weeks, then apply 7mg patch daily x 2 weeks. Stop smoking with onset of treatment. nicotine 7 2019-0 Yes [id number] 1{patch Apply 1 [facility] mg/24 hr 9-01 } Patch to ity of patch 00:00: area(s) [place] 00 every 24 Medical (twenty-fo Branch ur) hours. Apply 21mg patch daily x 6 weeks, then apply 14mg patch daily x 2 weeks, then apply 7mg patch daily x 2 weeks. Stop smoking with onset of treatment. nicotine 14 2019- Yes [id number] 1{patch Apply 1 [facility] mg/24 hr 9-01 } Patch to ity of patch 00:00: area(s) [place] 00 every 24 Medical (twenty-fo Branch ur) hours. Apply 21mg patch daily x 6 weeks, then apply 14mg patch daily x 2 weeks, then apply 7mg patch daily x 2 weeks. Stop smoking with onset of treatment. nicotine 21 2019-0 Yes [id number] 1{patch Apply 1 [facility] mg/24 hr 9-01 } Patch to ity of patch 00:00: area(s) [place] 00 every 24 Medical (twenty-fo Branch ur) hours. Apply 21mg patch daily x 6 weeks, then apply 14mg patch daily x 2 weeks, then apply 7mg patch daily x 2 weeks. Stop smoking with onset of treatment. nicotine 7 2019-0 Yes [id number] 1{patch Apply 1 [facility] mg/24 hr 9-01 } Patch to ity of patch 00:00: area(s) [place] 00 every 24 Medical (twenty-fo Branch ur) hours. Apply 21mg patch daily x 6 weeks, then apply 14mg patch daily x 2 weeks, then apply 7mg patch daily x 2 weeks. Stop smoking with onset of treatment. nicotine 14 2019-0 Yes [id number] 1{patch Apply 1 [facility] mg/24 hr 9-01 } Patch to ity of patch 00:00: area(s) [place] 00 every 24 Medical (twenty-fo Branch ur) hours. Apply 21mg patch daily x 6 weeks, then apply 14mg patch daily x 2 weeks, then apply 7mg patch daily x 2 weeks. Stop smoking with onset of treatment. nicotine 21 2019-0 Yes [id number] 1{patch Apply 1 [facility] mg/24 hr 9-01 } Patch to ity of patch 00:00: area(s) [place] 00 every 24 Medical (twenty-fo Branch ur) hours. Apply 21mg patch daily x 6 weeks, then apply 14mg patch daily x 2 weeks, then apply 7mg patch daily x 2 weeks. Stop smoking with onset of treatment. nicotine 7 2019-0 Yes [id number] 1{patch Apply 1 [facility] mg/24 hr 9-01 } Patch to ity of patch 00:00: area(s) [place] 00 every 24 Medical (twenty-fo Branch ur) hours. Apply 21mg patch daily x 6 weeks, then apply 14mg patch daily x 2 weeks, then apply 7mg patch daily x 2 weeks. Stop smoking with onset of treatment. nicotine 14 2019-0 Yes [id number] 1{patch Apply 1 [facility] mg/24 hr 9-01 } Patch to ity of patch 00:00: area(s) [place] 00 every 24 Medical (twenty-fo Branch ur) hours. Apply 21mg patch daily x 6 weeks, then apply 14mg patch daily x 2 weeks, then apply 7mg patch daily x 2 weeks. Stop smoking with onset of treatment. nicotine 21 2019-0 Yes [id number] 1{patch Apply 1 [facility] mg/24 hr 9-01 } Patch to ity of patch 00:00: area(s) [place] 00 every 24 Medical (twenty-fo Branch ur) hours. Apply 21mg patch daily x 6 weeks, then apply 14mg patch daily x 2 weeks, then apply 7mg patch daily x 2 weeks. Stop smoking with onset of treatment. nicotine 7 2019-0 Yes [id number] 1{patch Apply 1 [facility] mg/24 hr 9-01 } Patch to ity of patch 00:00: area(s) [place] 00 every 24 Medical (twenty-fo Branch ur) hours. Apply 21mg patch daily x 6 weeks, then apply 14mg patch daily x 2 weeks, then apply 7mg patch daily x 2 weeks. Stop smoking with onset of treatment. nicotine 14 2019- Yes [id number] 1{patch Apply 1 [facility] mg/24 hr 9-01 } Patch to ity of patch 00:00: area(s) [place] 00 every 24 Medical (twenty-fo Branch ur) hours. Apply 21mg patch daily x 6 weeks, then apply 14mg patch daily x 2 weeks, then apply 7mg patch daily x 2 weeks. Stop smoking with onset of treatment. nicotine 21 2019-0 Yes [id number] 1{patch Apply 1 [facility] mg/24 hr 9-01 } Patch to ity of patch 00:00: area(s) [place] 00 every 24 Medical (twenty-fo Branch ur) hours. Apply 21mg patch daily x 6 weeks, then apply 14mg patch daily x 2 weeks, then apply 7mg patch daily x 2 weeks. Stop smoking with onset of treatment. nicotine 7 2019-0 Yes [id number] 1{patch Apply 1 [facility] mg/24 hr 9-01 } Patch to ity of patch 00:00: area(s) [place] 00 every 24 Medical (twenty-fo Branch ur) hours. Apply 21mg patch daily x 6 weeks, then apply 14mg patch daily x 2 weeks, then apply 7mg patch daily x 2 weeks. Stop smoking with onset of treatment. nicotine 14 2019-0 Yes [id number] 1{patch Apply 1 [facility] mg/24 hr 9-01 } Patch to ity of patch 00:00: area(s) [place] 00 every 24 Medical (twenty-fo Branch ur) hours. Apply 21mg patch daily x 6 weeks, then apply 14mg patch daily x 2 weeks, then apply 7mg patch daily x 2 weeks. Stop smoking with onset of treatment. nicotine 21 2019-0 Yes [id number] 1{patch Apply 1 [facility] mg/24 hr 9-01 } Patch to ity of patch 00:00: area(s) [place] 00 every 24 Medical (twenty-fo Branch ur) hours. Apply 21mg patch daily x 6 weeks, then apply 14mg patch daily x 2 weeks, then apply 7mg patch daily x 2 weeks. Stop smoking with onset of treatment. nicotine 7 2019-0 Yes [id number] 1{patch Apply 1 [facility] mg/24 hr 9-01 } Patch to ity of patch 00:00: area(s) [place] 00 every 24 Medical (twenty-fo Branch ur) hours. Apply 21mg patch daily x 6 weeks, then apply 14mg patch daily x 2 weeks, then apply 7mg patch daily x 2 weeks. Stop smoking with onset of treatment. nicotine 14 2019-0 Yes [id number] 1{patch Apply 1 [facility] mg/24 hr 9-01 } Patch to ity of patch 00:00: area(s) [place] 00 every 24 Medical (twenty-fo Branch ur) hours. Apply 21mg patch daily x 6 weeks, then apply 14mg patch daily x 2 weeks, then apply 7mg patch daily x 2 weeks. Stop smoking with onset of treatment. nicotine 21 2019-0 Yes [id number] 1{patch Apply 1 [facility] mg/24 hr 9-01 } Patch to ity of patch 00:00: area(s) [place] 00 every 24 Medical (twenty-fo Branch ur) hours. Apply 21mg patch daily x 6 weeks, then apply 14mg patch daily x 2 weeks, then apply 7mg patch daily x 2 weeks. Stop smoking with onset of treatment. nicotine 7 2019-0 Yes [id number] 1{patch Apply 1 [facility] mg/24 hr 9-01 } Patch to ity of patch 00:00: [facility](s) [place] 00 every 24 Medical (twenty- Branch ur) hours. Apply 21mg patch daily x 6 weeks, then apply 14mg patch daily x 2 weeks, then apply 7mg patch daily x 2 weeks. Stop smoking with onset of treatment. nicotine 14 2020- No [id number] 1{patch Apply 1 [facility] mg/24 hr 03-23 } Patch to ity of patch 00:00: 00:00 area(s) [place] 00 :00 every 24 Medical (twenty- Branch ur) hours. Apply 21mg patch daily x 6 weeks, then apply 14mg patch daily x 2 weeks, then apply 7mg patch daily x 2 weeks. Stop smoking with onset of treatment. nicotine 21 No [id number] 1{patch Apply 1 [facility] mg/24 hr 03-23 } Patch to ity of patch 00:00: 00:00 area(s) [place] 00 :00 every 24 Medical ([facility] ur) hours. Apply 21mg patch daily x 6 weeks, then apply 14mg patch daily x 2 weeks, then apply 7mg patch daily x 2 weeks. Stop smoking with onset of treatment. nicotine 7 No [id number] 1{patch Apply 1 [facility] mg/24 hr 03-23 } Patch to ity of patch 00:00: 00:00 area(s) [place] 00 :00 every 24 Medical ([facility] ur) hours. Apply 21mg patch daily x 6 weeks, then apply 14mg patch daily x 2 weeks, then apply 7mg patch daily x 2 weeks. Stop smoking with onset of treatment. nicotine 14 2020- No [id number] 1{patch Apply 1 [facility] mg/24 hr 03-23 } Patch to ity of patch 00:00: 00:00 area(s) [place] 00 :00 every 24 Medical (twenty- Branch ur) hours. Apply 21mg patch daily x 6 weeks, then apply 14mg patch daily x 2 weeks, then apply 7mg patch daily x 2 weeks. Stop smoking with onset of treatment. nicotine 21 2020- No [id number] 1{patch Apply 1 [facility] mg/24 hr 03-23 } Patch to ity of patch 00:00: 00:00 area(s) [place] 00 :00 every 24 Medical (twenty-fo Branch ur) hours. Apply 21mg patch daily x 6 weeks, then apply 14mg patch daily x 2 weeks, then apply 7mg patch daily x 2 weeks. Stop smoking with onset of treatment. nicotine 7 2020- No [id number] 1{patch Apply 1 [facility] mg/24 hr 03-23 } Patch to ity of patch 00:00: 00:00 [facility](s) [place] 00 :00 every 24 Medical (twenty-fo Branch ur) hours. Apply 21mg patch daily x 6 weeks, then apply 14mg patch daily x 2 weeks, then apply 7mg patch daily x 2 weeks. Stop smoking with onset of treatment. sildenafiL 2020-2019- No [id number] 25mg Take 1 [facility] (VIAGRA) 25 03-23 tablet by it y of mg tablet 00:00: 00:00 mouth [place] 00 :00 needed Medical ([facility] Branch dysfunctio n). Take 1 Tab 30 mins to 1 Hr prior to sexual encounter. Max 2 Tabs within 24H. Do not mix with alcohol or other medication s. sildenafiL 2019-2019- No [id number] 25mg Take 1 [facility] (VIAGRA) 25 03-23 tablet by it y of mg tablet 00:00: 00:00 mouth as [place] 00 :00 needed Medical (Erectile Branch dysfunctio n). Take 1 Tab 30 mins to 1 Hr prior to sexual encounter. Max 2 Tabs within 24H. Do not mix with alcohol or other medication s. sildenafiL 2019-2019- No [id number] 25mg Take 1 [facility] (VIAGRA) 25 03-23 tablet by it y of mg tablet 00:00: 00:00 mouth as [place] 00 :00 needed Medical (Erectile Branch dysfunctio n). Take 1 Tab 30 mins to 1 Hr prior to sexual encounter. Max 2 Tabs within 24H. Do not mix with alcohol or other medication s. nicotine 14 2019- No [id number] 1{patch Apply 1 [facility] mg/24 hr 03-23 } Patch to ity of patch 00:00: 00:00 [facility](s) [place] 00 :00 every 24 Medical (twenty-fo Branch ur) hours. nicotine 21 2019- No [id number] 1{patch Apply 1 [facility] mg/24 hr 03-23 } Patch to ity of patch 00:00: 00:00 area(s) [place] 00 :00 every 24 Medical (twenty-fo Branch ur) hours. nicotine 7 2019- 2020- No [id number] 1{patch Apply 1 [facility] mg/24 hr 03-23 } Patch to ity of patch 00:00: 00:00 area(s) [place] 00 :00 every 24 Medical (twenty-fo Branch ur) hours. nicotine 14 2019- 2020- No [id number] 1{patch Apply 1 [facility] mg/24 hr 03-23 } Patch to ity of patch 00:00: 00:00 area(s) [place] 00 :00 every 24 Medical (twenty-fo Branch ur) hours. nicotine 21 2019- 2020- No [id number] 1{patch Apply 1 [facility] mg/24 hr 03-23 } Patch to ity of patch 00:00: 00:00 area(s) [place] 00 :00 every 24 Medical (twenty-fo Branch ur) hours. nicotine 7 2019- No [id number] 1{patch Apply 1 [facility] mg/24 hr 03-23 } Patch to ity of patch 00:00: 00:00 [facility](s) [place] 00 :00 every 24 Medical (twenty-fo Branch ur) hours. HYDROcodone 2020-0 Yes .5{tbl} Take 0.5 [facility] -acetaminop 8-13 tablets by it y of hen 7.5-325 16:51: mouth [place] mg per 07 every 4 Medical tablet (four) Branch hours. citalopram 2020-0 Yes 20mg Take 20 mg U nivers 20 mg 8-13 by mouth ity of tablet 16:51: daily. [place] [address] Medical Branch ARIPiprazol 2020-0 Yes 10mg Take 10 mg [facility] e 10 mg 8-13 by mouth ity of tablet 16:51: daily. [place] [address] Medical Branch traZODone 2020-0 Yes 50mg Take 50 mg [place] 50 mg 8-13 by mouth ity of tablet 16:51: at [place] [address] bedtime. Medical Branch HYDROcodone 2020-0 Yes .5{tbl} Take 0.5 [facility] -acetaminop 8-13 tablets by it y of hen 7.5-325 16:51: mouth [place] mg per 07 every 4 Medical tablet (four) Branch hours. citalopram 2020-0 Yes 20mg Take 20 mg U nivers 20 mg 8-13 by mouth ity of tablet 16:51: daily. [place] [address] Medical Branch ARIPiprazol 2020-0 Yes 10mg Take 10 mg [facility] e 10 mg 8-13 by mouth ity of tablet 16:51: daily. [place] [address] Medical Branch traZODone 2020-0 Yes 50mg Take 50 mg [place] 50 mg 8-13 by mouth ity of tablet 16:51: at [place] [address] bedtime. Medical Branch HYDROcodone 2020-0 Yes .5{tbl} Take 0.5 [facility] -acetaminop 8-13 tablets by it y of hen 7.5-325 16:51: mouth [place] mg per 07 every 4 Medical tablet (four) Branch hours. citalopram 2020-0 Yes 20mg Take 20 mg U nivers 20 mg 8-13 by mouth ity of tablet 16:51: daily. [place] [address] Medical Branch ARIPiprazol 2020-0 Yes 10mg Take 10 mg [facility] e 10 mg 8-13 by mouth ity of tablet 16:51: daily. [place] [address] Medical Branch traZODone 2020-0 Yes 50mg Take 50 mg [place] 50 mg 8-13 by mouth ity of tablet 16:51: at [place] [address] bedtime. Medical Branch metoprolol 2020-0 Yes 25mg Take 25 mg U nivers succinate 8-13 by mouth ity of XL 25 mg 24 16:49: daily. [place] tablet 43 [facility] metoprolol 2020-0 Yes 25mg Take 25 mg U nivers succinate 8-13 by mouth ity of XL 25 mg 24 16:49: daily. [place] tablet 43 [facility] metoprolol 2020-0 Yes 25mg Take 25 mg U nivers succinate 8-13 by mouth ity of XL 25 mg 24 16:49: daily. [place] tablet 43 [facility] Branch metoprolol 2020-0 Yes 25mg Take 25 mg U nivers succinate 8-13 by mouth ity of XL 25 mg 24 16:49: daily. [place] tablet 43 [facility] Branch metoprolol 2020-0 Yes 25mg Take 25 mg U nivers succinate 8-13 by mouth ity of XL 25 mg 24 16:49: daily. [place] tablet 43 [facility] Branch metoprolol 2020-0 Yes 25mg Take 25 mg U nivers succinate 8-13 by mouth ity of XL 25 mg 24 16:49: daily. [place] tablet 43 [facility] Branch metoprolol 2020-0 Yes 25mg Take 25 mg U nivers succinate 8-13 by mouth ity of XL 25 mg 24 16:49: daily. [place] tablet 43 [facility] Branch metoprolol 2020-0 Yes 25mg Take 25 mg U nivers succinate 8-13 by mouth ity of XL 25 mg 24 16:49: daily. [place] tablet 43 [facility] Branch metoprolol 2020-0 Yes 25mg Take 25 mg U nivers succinate 8-13 by mouth ity of XL 25 mg 24 16:49: daily. [place] tablet 43 [facility] Branch metoprolol 2019-0 Yes 25mg Take 25 mg U nivers succinate 8-13 by mouth ity of XL 25 mg 24 16:49: daily. [place] tablet 43 [facility] Branch metoprolol 2019-0 Yes 25mg Take 25 mg U nivers succinate 8-13 by mouth ity of XL 25 mg 24 16:49: daily. [place] tablet 43 [facility] Branch metoprolol 2019-0 Yes 25mg Take 25 mg U nivers succinate 8-13 by mouth ity of XL 25 mg 24 16:49: daily. [place] tablet 43 [facility] Branch metoprolol 2019-0 Yes 25mg Take 25 mg U nivers succinate 8-13 by mouth ity of XL 25 mg 24 16:49: daily. [place] tablet 43 [facility] Branch metoprolol 2020-0 Yes 25mg Take 25 mg U nivers succinate 8-13 by mouth ity of XL 25 mg 24 16:49: daily. [place] tablet 43 [facility] Branch metoprolol 2020-0 Yes 25mg Take 25 mg U nivers succinate 8-13 by mouth ity of XL 25 mg 24 16:49: daily. [place] tablet 43 [facility] Branch metoprolol 2020-0 Yes 25mg Take 25 mg U nivers succinate 8-13 by mouth ity of XL 25 mg 24 16:49: daily. [place] tablet 43 [facility] Branch metoprolol 2019-0 Yes 25mg Take 25 mg U nivers succinate 8-13 by mouth ity of XL 25 mg 24 16:49: daily. [place] tablet 43 [facility] Branch hydroCHLORO 2020-0 Yes [id number] 25mg Take 1 [facility] thiazide 25 8-04 tablet by ity of mg tablet 00:00: mouth [place] 00 daily. Medical Branch lisinopril 2020-0 Yes [id number] 40mg Take 1 U nivers 40 mg 8-04 tablet by ity of tablet 00:00: mouth [place] 00 daily. Medical Branch hydroCHLORO 2020-0 Yes [id number] 25mg Take 1 [facility] thiazide 25 8-04 tablet by ity of mg tablet 00:00: mouth [place] 00 daily. Medical Branch lisinopril 2020-0 Yes [id number] 40mg Take 1 U nivers 40 mg 8-04 tablet by ity of tablet 00:00: mouth [place] 00 daily. Medical Branch hydroCHLORO 2020-0 Yes [id number] 25mg Take 1 [facility] thiazide 25 8-04 tablet by ity of mg tablet 00:00: mouth [place] 00 daily. Medical Branch lisinopril 2020-0 Yes [id number] 40mg Take 1 U nivers 40 mg 8-04 tablet by ity of tablet 00:00: mouth [place] 00 daily. Medical Branch hydroCHLORO 2020-0 Yes [id number] 25mg Take 1 [facility] thiazide 25 8-04 tablet by ity of mg tablet 00:00: mouth [place] 00 daily. Medical Branch lisinopril 2020-0 Yes [id number] 40mg Take 1 U nivers 40 mg 8-04 tablet by ity of tablet 00:00: mouth [place] 00 daily. Medical Branch hydroCHLORO 2020-0 Yes [id number] 25mg Take 1 [facility] thiazide 25 8-04 tablet by ity of mg tablet 00:00: mouth [place] 00 daily. Medical Branch lisinopril 2020-0 Yes [id number] 40mg Take 1 U nivers 40 mg 8-04 tablet by ity of tablet 00:00: mouth [place] 00 daily. Medical Branch hydroCHLORO 2020-0 Yes [id number] 25mg Take 1 [facility] thiazide 25 8-04 tablet by ity of mg tablet 00:00: mouth [place] 00 daily. [facility] Branch lisinopril 2020-0 Yes [id number] 40mg Take 1 U nivers 40 mg 8-04 tablet by ity of tablet 00:00: mouth [place] 00 daily. [facility] Branch hydroCHLORO 2020-0 Yes [id number] 25mg Take 1 [facility] thiazide 25 8-04 tablet by ity of mg tablet 00:00: mouth [place] 00 daily. Medical Branch lisinopril 2020-0 Yes [id number] 40mg Take 1 U nivers 40 mg 8-04 tablet by ity of tablet 00:00: mouth [place] 00 daily. Medical Branch hydroCHLORO 2020-0 Yes [id number] 25mg Take 1 [facility] thiazide 25 8-04 tablet by ity of mg tablet 00:00: mouth [place] 00 daily. Medical Branch lisinopril 2020-0 Yes [id number] 40mg Take 1 U nivers 40 mg 8-04 tablet by ity of tablet 00:00: mouth [place] 00 daily. Medical Branch hydroCHLORO 2020-0 Yes [id number] 25mg Take 1 [facility] thiazide 25 8-04 tablet by ity of mg tablet 00:00: mouth [place] 00 daily. Medical Branch lisinopril 2020-0 Yes [id number] 40mg Take 1 U nivers 40 mg 8-04 tablet by ity of tablet 00:00: mouth [place] 00 daily. Medical Branch hydroCHLORO 2020-0 Yes [id number] 25mg Take 1 [facility] thiazide 25 8-04 tablet by ity of mg tablet 00:00: mouth [place] 00 daily. Medical Branch lisinopril 2020-0 Yes [id number] 40mg Take 1 U nivers 40 mg 8-04 tablet by ity of tablet 00:00: mouth [place] 00 daily. Medical Branch hydroCHLORO 2020-0 Yes [id number] 25mg Take 1 [facility] thiazide 25 8-04 tablet by ity of mg tablet 00:00: mouth [place] 00 daily. Medical Branch lisinopril 2020-0 Yes [id number] 40mg Take 1 U nivers 40 mg 8-04 tablet by ity of tablet 00:00: mouth [place] 00 daily. Medical Branch hydroCHLORO 2020-0 Yes [id number] 25mg Take 1 [facility] thiazide 25 8-04 tablet by ity of mg tablet 00:00: mouth [place] 00 daily. Medical Branch lisinopril 2020-0 Yes [id number] 40mg Take 1 U nivers 40 mg 8-04 tablet by ity of tablet 00:00: mouth [place] 00 daily. [facility] Branch hydroCHLORO 2020-0 Yes [id number] 25mg Take 1 [facility] thiazide 25 8-04 tablet by ity of mg tablet 00:00: mouth [place] 00 daily. Medical Branch lisinopril 2020-0 Yes [id number] 40mg Take 1 U nivers 40 mg 8-04 tablet by ity of tablet 00:00: mouth [place] 00 daily. Medical Branch hydroCHLORO 2020-0 Yes [id number] 25mg Take 1 [facility] thiazide 25 8-04 tablet by ity of mg tablet 00:00: mouth [place] 00 daily. Medical Branch lisinopril 2020-0 Yes [id number] 40mg Take 1 U nivers 40 mg 8-04 tablet by ity of tablet 00:00: mouth [place] 00 daily. Medical Branch hydroCHLORO 2020-0 Yes [id number] 25mg Take 1 [facility] thiazide 25 8-04 tablet by ity of mg tablet 00:00: mouth [place] 00 daily. Medical Branch lisinopril 2020-0 Yes [id number] 40mg Take 1 U nivers 40 mg 8-04 tablet by ity of tablet 00:00: mouth [place] 00 daily. [facility] Branch hydroCHLORO 2020-0 Yes [id number] 25mg Take 1 [facility] thiazide 25 8-04 tablet by ity of mg tablet 00:00: mouth [place] 00 daily. Medical Branch lisinopril 2020-0 Yes [id number] 40mg Take 1 U nivers 40 mg 8-04 tablet by ity of tablet 00:00: mouth [place] 00 daily. Medical Branch hydroCHLORO 2020-0 Yes [id number] 25mg Take 1 [facility] thiazide 25 8-04 tablet by ity of mg tablet 00:00: mouth [place] 00 daily. [facility] Branch lisinopril 2020-0 Yes [id number] 40mg Take 1 U nivers 40 mg 8-04 tablet by ity of tablet 00:00: mouth [place] 00 daily. [facility] Branch hydroCHLORO 2020-0 Yes [id number] 25mg Take 1 [facility] thiazide 25 8-04 tablet by ity of mg tablet 00:00: mouth [place] 00 daily. Medical Branch lisinopril 2020-0 Yes [id number] 40mg Take 1 U nivers 40 mg 8-04 tablet by ity of tablet 00:00: mouth [place] 00 daily. [facility] Branch lisinopril 2020-0 2020- No [id number] 40mg Take 1 [facility] 40 mg 8-04 04-28 tablet by ity of tablet 00:00: 00:00 mouth [place] 00 :00 daily. [facility] Branch hydroCHLORO 2020-0 2020- No [id number] 25mg Take 1 [facility] thiazide 25 8-04 04-28 tablet by it y of mg tablet 00:00: 00:00 mouth [place] 00 :00 daily. Medical Branch lisinopril 2020- No [id number] 40mg Take 1 [facility] 40 mg 02-23 tablet by ity of tablet 00:00: 00:00 mouth [place] 00 :00 daily. Medical Branch hydroCHLORO 2020- No [id number] 25mg Take 1 [facility] thiazide 25 02-23 tablet by it y of mg tablet 00:00: 00:00 mouth [place] 00 :00 daily. Medical Branch PREDNISONE 0 2020- No 20mg Take 20 mg [facility] ORAL 7-30 07-30 by mouth ity of 21:18: 00:00 daily. [place] 54 :00 Indication Medical s: pt Branch takes this med at hs PREDNISONE 2020- No 20mg Take 20 mg [facility] ORAL 7-30 07-30 by mouth ity of 21:18: 00:00 daily. [place] 54 :00 Indication Medical s: pt Branch takes this med at hs HYDROcodone 2020-0 Yes .5{tbl} Take 0.5 [facility] -acetaminop 7-30 tablets by it y of hen 7.5-325 20:46: mouth [place] mg per 56 every 4 Medical tablet (four) Branch hours. HYDROcodone 2020-0 Yes .5{tbl} Take 0.5 [facility] -acetaminop 7-30 tablets by it y of hen 7.5-325 20:46: mouth [place] mg per 56 every 4 Medical tablet (four) Branch hours. HYDROcodone 2020-0 Yes .5{tbl} Take 0.5 [facility] -acetaminop 7-30 tablets by it y of hen 7.5-325 20:46: mouth [place] mg per 56 every 4 Medical tablet (four) Branch hours. HYDROcodone 2020-0 Yes .5{tbl} Take 0.5 [facility] -acetaminop 7-30 tablets by it y of hen 7.5-325 20:46: mouth [place] mg per 56 every 4 Medical tablet (four) Branch hours. metoprolol 2020-0 Yes 25mg Take 25 mg U nivers succinate 7-30 by mouth ity of XL 25 mg 24 20:39: daily. [place] hr tablet 50 [facility] Branch metoprolol 2020-0 Yes 25mg Take 25 mg U nivers succinate 7-30 by mouth ity of XL 25 mg 24 20:39: daily. [place] hr tablet 50 Medical Branch metoprolol 2020-0 Yes 25mg Take 25 mg U nivers succinate 7-30 by mouth ity of XL 25 mg 24 20:39: daily. [place] hr tablet 50 Medical Branch metoprolol 2020-0 Yes 25mg Take 25 mg U nivers succinate 7-30 by mouth ity of XL 25 mg 24 20:39: daily. [place] tablet 50 Medical Branch meclizine 2020-0 Yes [id number] 12.5mg Take 1 [facility] 12.5 mg 7-30 tablet by ity of tablet 00:00: mouth (three) Medical times Branch daily as needed for Dizziness. meclizine 2020-0 Yes [id number] 12.5mg Take 1 [facility] 12.5 mg 7-30 tablet by ity of tablet 00:00: mouth (three) Medical times Branch daily as needed for Dizziness. meclizine 2020-0 Yes [id number] 12.5mg Take 1 [facility] 12.5 mg 7-30 tablet by ity of tablet 00:00: mouth (three) Medical times Branch daily as needed for Dizziness. meclizine 2020-0 Yes [id number] 12.5mg Take 1 [facility] 12.5 mg 7-30 tablet by ity of tablet 00:00: mouth (three) Medical times Branch daily as needed for Dizziness. meclizine 2020-0 Yes [id number] 12.5mg Take 1 [facility] 12.5 mg 7-30 tablet by ity of tablet 00:00: mouth (three) Medical times Branch daily as needed for Dizziness. meclizine 2020-0 Yes [id number] 12.5mg Take 1 [facility] 12.5 mg 7-30 tablet by ity of tablet 00:00: mouth (three) Medical times Branch daily as needed for Dizziness. meclizine 2020-0 Yes [id number] 12.5mg Take 1 [facility] 12.5 mg 7-30 tablet by ity of tablet 00:00: mouth (three) Medical times Branch daily as needed for Dizziness. meclizine 2020-0 Yes [id number] 12.5mg Take 1 [facility] 12.5 mg 7-30 tablet by ity of tablet 00:00: mouth (three) Medical times Branch daily as needed for Dizziness. meclizine 2020-0 Yes [id number] 12.5mg Take 1 [facility] 12.5 mg 7-30 tablet by ity of tablet 00:00: mouth (three) Medical times Branch daily as needed for Dizziness. meclizine 2020-0 Yes [id number] 12.5mg Take 1 [facility] 12.5 mg 7-30 tablet by ity of tablet 00:00: mouth (three) Medical times Branch daily as needed for Dizziness. meclizine 2020-0 Yes [id number] 12.5mg Take 1 [facility] 12.5 mg 7-30 tablet by ity of tablet 00:00: mouth (three) Medical times Branch daily as needed for Dizziness. meclizine 2020-0 Yes [id number] 12.5mg Take 1 [facility] 12.5 mg 7-30 tablet by ity of tablet 00:00: mouth (three) Medical times Branch daily as needed for Dizziness. meclizine 2020-0 Yes [id number] 12.5mg Take 1 [facility] 12.5 mg 7-30 tablet by ity of tablet 00:00: mouth (three) Medical times Branch daily as needed for Dizziness. meclizine 2020-0 Yes [id number] 12.5mg Take 1 [facility] 12.5 mg 7-30 tablet by ity of tablet 00:00: mouth (three) Medical times Branch daily as needed for Dizziness. meclizine 2020-0 Yes [id number] 12.5mg Take 1 [facility] 12.5 mg 7-30 tablet by ity of tablet 00:00: mouth (three) Medical times Branch daily as needed for Dizziness. meclizine 2020-0 Yes [id number] 12.5mg Take 1 [facility] 12.5 mg 7-30 tablet by ity of tablet 00:00: mouth (three) Medical times Branch daily as needed for Dizziness. meclizine 2020-0 Yes [id number] 12.5mg Take 1 [facility] 12.5 mg 7-30 tablet by ity of tablet 00:00: mouth 3 (three) Medical times Branch daily as needed for Dizziness. meclizine 2020-0 Yes [id number] 12.5mg Take 1 [facility] 12.5 mg 7-30 tablet by ity of tablet 00:00: mouth (three) Medical times Branch daily as needed for Dizziness. meclizine 2020-0 Yes [id number] 12.5mg Take 1 [facility] 12.5 mg 7-30 tablet by ity of tablet 00:00: mouth (three) Medical times Branch daily as needed for Dizziness. meclizine 2020-0 Yes [id number] 12.5mg Take 1 [facility] 12.5 mg 7-30 tablet by ity of tablet 00:00: mouth (three) Medical times Branch daily as needed for Dizziness. meclizine 2020-0 Yes [id number] 12.5mg Take 1 [facility] 12.5 mg 7-30 tablet by ity of tablet 00:00: mouth (three) Medical times Branch daily as needed for Dizziness. meclizine 2020-0 Yes [id number] 12.5mg Take 1 [facility] 12.5 mg 7-30 tablet by ity of tablet 00:00: mouth (three) Medical times Branch daily as needed for Dizziness. meclizine 2020-0 Yes [id number] 12.5mg Take 1 [facility] 12.5 mg 7-30 tablet by ity of tablet 00:00: mouth (three) Medical times Branch daily as needed for Dizziness. meclizine 2020-0 Yes [id number] 12.5mg Take 1 [facility] 12.5 mg 7-30 tablet by ity of tablet 00:00: mouth (three) Medical times Branch daily as needed for Dizziness. meclizine 2020-0 Yes [id number] 12.5mg Take 1 [facility] 12.5 mg 7-30 tablet by ity of tablet 00:00: mouth (three) Medical times Branch daily as needed for Dizziness. meclizine 2020-0 Yes [id number] 12.5mg Take 1 [facility] 12.5 mg 7-30 tablet by ity of tablet 00:00: mouth (three) Medical times Branch daily as needed for Dizziness. meclizine 2020-0 Yes [id number] 12.5mg Take 1 [facility] 12.5 mg 7-30 tablet by ity of tablet 00:00: mouth (three) Medical times Branch daily as needed for Dizziness. meclizine 2020-0 Yes [id number] 12.5mg Take 1 [facility] 12.5 mg 7-30 tablet by ity of tablet 00:00: mouth (three) Medical times Branch daily as needed for Dizziness. meclizine 2020-0 Yes [id number] 12.5mg Take 1 [facility] 12.5 mg 7-30 tablet by ity of tablet 00:00: mouth (three) Medical times Branch daily as needed for Dizziness. meclizine 2020-0 Yes [id number] 12.5mg Take 1 [facility] 12.5 mg 7-30 tablet by ity of tablet 00:00: mouth (three) Medical times Branch daily as needed for Dizziness. meclizine 2020-0 Yes [id number] 12.5mg Take 1 [facility] 12.5 mg 7-30 tablet by ity of tablet 00:00: mouth (three) Medical times Branch daily as needed for Dizziness. meclizine 2020-0 Yes [id number] 12.5mg Take 1 [facility] 12.5 mg 7-30 tablet by ity of tablet 00:00: mouth (three) Medical times Branch daily as needed for Dizziness. meclizine 2020-0 Yes [id number] 12.5mg Take 1 [facility] 12.5 mg 7-30 tablet by ity of tablet 00:00: mouth (three) Medical times Branch daily as needed for Dizziness. meclizine 2020-0 Yes [id number] 12.5mg Take 1 [facility] 12.5 mg 7-30 tablet by ity of tablet 00:00: mouth (three) Medical times Branch daily as needed for Dizziness. meclizine 2020-0 Yes [id number] 12.5mg Take 1 [facility] 12.5 mg 7-30 tablet by ity of tablet 00:00: mouth (three) Medical times Branch daily as needed for Dizziness. meclizine 2020-0 Yes [id number] 12.5mg Take 1 [facility] 12.5 mg 7-30 tablet by ity of tablet 00:00: mouth 3 (three) Medical times Branch daily as needed for Dizziness. meclizine 2020-0 Yes [id number] 12.5mg Take 1 [facility] 12.5 mg 7-30 tablet by ity of tablet 00:00: mouth (three) Medical times Branch daily as needed for Dizziness. meclizine 2020-0 Yes [id number] 12.5mg Take 1 [facility] 12.5 mg 7-30 tablet by ity of tablet 00:00: mouth (three) Medical times Branch daily as needed for Dizziness. meclizine 2020-0 Yes [id number] 12.5mg Take 1 [facility] 12.5 mg 7-30 tablet by ity of tablet 00:00: mouth (three) Medical times Branch daily as needed for Dizziness. meclizine 2020-0 Yes [id number] 12.5mg Take 1 [facility] 12.5 mg 7-30 tablet by ity of tablet 00:00: mouth (three) Medical times Branch daily as needed for Dizziness. meclizine 2020-0 Yes Dizziness 12.5mg Take 1 [facility] 12.5 mg 7-30 tablet by ity of tablet 00:00: mouth (three) Medical times Branch daily as needed for Dizziness. meclizine 2020-0 Yes Dizziness 12.5mg Take 1 [facility] 12.5 mg 7-30 tablet by ity of tablet 00:00: mouth (three) Medical times Branch daily as needed for Dizziness. meclizine 2020-0 Yes Dizziness 12.5mg Take 1 [facility] 12.5 mg 7-30 tablet by ity of tablet 00:00: mouth (three) Medical times Branch daily as needed for Dizziness. esomeprazol 2019-0 2020- No 40mg Take 40 mg [facility] e magnesium 7-24 07-24 by mouth. it y of (NEXIUM 20:59: 00:00 [place] 24HR) 20 mg 17 :00 Medical [facility] Branch OMEPRAZOLE 2020-0 Yes [id number] TAKE 1 Univers 40 mg 7-24 CAPSULE BY ity of capsule 00:00: MOUTH [place] 00 EVERY DAY Medical Branch OMEPRAZOLE 2020-0 Yes [id number] TAKE 1 Univers 40 mg 7-24 CAPSULE BY ity of capsule 00:00: MOUTH [place] 00 EVERY DAY Medical Branch OMEPRAZOLE 2020-0 Yes [id number] TAKE 1 Univers 40 mg 7-24 CAPSULE BY ity of capsule 00:00: MOUTH [place] EVERY DAY Medical Branch OMEPRAZOLE 2020-0 Yes [id number] TAKE 1 Univers 40 mg 7-24 CAPSULE BY ity of capsule 00:00: MOUTH [place] 00 EVERY DAY Medical Branch OMEPRAZOLE 2020-0 Yes [id number] TAKE 1 Univers 40 mg 7-24 CAPSULE BY ity of capsule 00:00: MOUTH [place] 00 EVERY DAY Medical Branch OMEPRAZOLE 2020-0 Yes [id number] TAKE 1 Univers 40 mg 7-24 CAPSULE BY ity of capsule 00:00: MOUTH [place] 00 EVERY DAY Medical Branch OMEPRAZOLE 2020-0 Yes [id number] TAKE 1 Univers 40 mg 7-24 CAPSULE BY ity of capsule 00:00: MOUTH [place] 00 EVERY DAY Medical Branch OMEPRAZOLE 2020-0 Yes [id number] TAKE 1 Univers 40 mg 7-24 CAPSULE BY ity of capsule 00:00: MOUTH [place] 00 EVERY DAY Medical Branch OMEPRAZOLE 2020-0 Yes [id number] TAKE 1 Univers 40 mg 7-24 CAPSULE BY ity of capsule 00:00: MOUTH [place] 00 EVERY DAY Medical Branch OMEPRAZOLE 2020-0 Yes [id number] TAKE 1 Univers 40 mg 7-24 CAPSULE BY ity of capsule 00:00: MOUTH [place] 00 EVERY DAY Medical Branch OMEPRAZOLE 2020-0 Yes [id number] TAKE 1 Univers 40 mg 7-24 CAPSULE BY ity of capsule 00:00: MOUTH [place] 00 EVERY DAY Medical Branch OMEPRAZOLE 2020-0 Yes [id number] TAKE 1 Univers 40 mg 7-24 CAPSULE BY ity of capsule 00:00: MOUTH [place] 00 EVERY DAY Medical Branch OMEPRAZOLE 2020-0 Yes [id number] TAKE 1 Univers 40 mg 7-24 CAPSULE BY ity of capsule 00:00: MOUTH [place] 00 EVERY DAY Medical Branch OMEPRAZOLE 2020-0 Yes [id number] TAKE 1 Univers 40 mg 7-24 CAPSULE BY ity of capsule 00:00: MOUTH [place] 00 EVERY DAY Medical Branch OMEPRAZOLE 2020-0 Yes [id number] TAKE 1 Univers 40 mg 7-24 CAPSULE BY ity of capsule 00:00: MOUTH [place] 00 EVERY DAY Medical Branch OMEPRAZOLE 2020-0 Yes [id number] TAKE 1 Univers 40 mg 7-24 CAPSULE BY ity of capsule 00:00: MOUTH [place] 00 EVERY DAY Medical Branch OMEPRAZOLE 2020-0 Yes [id number] TAKE 1 Univers 40 mg 7-24 CAPSULE BY ity of capsule 00:00: MOUTH [place] 00 EVERY DAY Medical Branch OMEPRAZOLE 2020-0 2020- No [id number] TAKE 1 Univers 40 mg 7-24 12-10 CAPSULE BY ity of capsule 00:00: 00:00 MOUTH [place] 00 :00 EVERY DAY Medical Branch lisinopril- 2020-0 2020- No 2{tbl} Take 2 U nivers hydrochloro 5-18 05-18 tablets by i ty of thiazide 14:51: 00:00 mouth [place] 20-12.5 mg 59 :00 every Medical per tablet evening. Bran h esomeprazol 2020-0 Yes 40mg Take 40 mg Univers e magnesium 5-18 by mouth. ity of (NEXIUM 14:45: [place] 24HR) 20 mg 29 Medical [facility] Branch HYDROcodone 2020-0 Yes .5{tbl} Take 0.5 Univers -acetaminop 5-18 tablets by it y of hen 7.5-325 14:45: mouth [place] mg per 29 every 4 Medical tablet (four) Branch hours. esomeprazol 2020-0 Yes 40mg Take 40 mg Univers e magnesium 5-18 by mouth. ity of (NEXIUM 14:45: [place] 24HR) 20 mg 29 Medical [facility] Branch HYDROcodone 2020-0 Yes .5{tbl} Take 0.5 Univers -acetaminop 5-18 tablets by it y of hen 7.5-325 14:45: mouth [place] mg per 29 every 4 Medical tablet (four) Branch hours. esomeprazol 2020-0 Yes 40mg Take 40 mg Univers e magnesium 5-18 by mouth. ity of (NEXIUM 14:45: [place] 24HR) 20 mg 29 [facility] Branch HYDROcodone 2020-0 Yes .5{tbl} Take 0.5 Univers -acetaminop 5-18 tablets by it y of hen 7.5-325 14:45: mouth [place] mg per 29 every 4 Medical tablet (four) Branch hours. HYDROcodone 2020-0 Yes .5{tbl} Take 0.5 Univers -acetaminop 5-18 tablets by it y of hen 7.5-325 14:45: mouth [place] mg per 29 every 4 Medical tablet (four) Branch hours. HYDROcodone 2020-0 Yes .5{tbl} Take 0.5 Univers -acetaminop 5-18 tablets by it y of hen 7.5-325 14:45: mouth [place] mg per 29 every 4 Medical tablet (four) Branch hours. lisinopril- 2020-0 Yes [id number] 2{tbl} Take 2 Univers hydrochloro 5-18 tablets by it y of thiazide 00:00: mouth [place] 20-12.5 mg 00 every Medical per tablet evening. Bran h omeprazole 2020-0 Yes [id number] 40mg Take 1 Univers 40 mg 5-18 capsule by ity of capsule 00:00: mouth [place] 00 daily. Medical Branch lisinopril- 2020-0 Yes [id number] 2{tbl} Take 2 Univers hydrochloro 5-18 tablets by it y of thiazide 00:00: mouth [place] 20-12.5 mg 00 every Medical [facility]. [facility] Yes [id number] 40mg Take 1 Univers 40 mg 5-18 capsule by ity of capsule 00:00: mouth [place] 00 daily. Medical Branch lisinopril- 2020-0 Yes [id number] 2{tbl} Take 2 Univers hydrochloro 5-18 tablets by it y of thiazide 00:00: mouth [place] 20-12.5 mg 00 every Medical [facility]. [facility] Yes [id number] 40mg Take 1 Univers 40 mg 5-18 capsule by ity of capsule 00:00: mouth [place] 00 daily. Medical Branch lisinopril- 2020-0 Yes [id number] 2{tbl} Take 2 Univers hydrochloro 5-18 tablets by it y of thiazide 00:00: mouth [place] 20-12.5 mg 00 every Medical per tablet evening. Bran h lisinopril- 2020-0 Yes [id number] 2{tbl} Take 2 Univers hydrochloro 5-18 tablets by it y of thiazide 00:00: mouth [place] 20-12.5 mg 00 every Medical per tablet evening. Bran h lisinopril- 2020-0 Yes [id number] 2{tbl} Take 2 Univers hydrochloro 5-18 tablets by it y of thiazide 00:00: mouth [place] 20-12.5 mg 00 every Medical per tablet evening. Bran h lisinopril- 2020-0 Yes [id number] 2{tbl} Take 2 Univers hydrochloro 5-18 tablets by it y of thiazide 00:00: mouth [place] 20-12.5 mg 00 every Medical per tablet evening. Bran h lisinopril- 2020-0 2020- No [id number] 2{tbl} Take 2 Univers hydrochloro 5-18 08-04 tablets by i ty of thiazide 00:00: 00:00 mouth [place] 20-12.5 mg 00 :00 every Medical per tablet evening. [facility] omeprazole 2019-0 2020- No [id number] 40mg Take 1 Univers 40 mg 5-18 07-24 capsule by ity of capsule 00:00: 00:00 mouth [place] 00 :00 daily. Medical Branch HYDROcodone 0 2020- No 1{tbl} Take 1 U nivers -acetaminop 4-23 04-23 tablet by it y of hen 7.5-325 20:49: 00:00 mouth [place] mg per 20 :00 needed for Medical tablet Pain. Branch lisinopril- 2019-0 Yes 2{tbl} Take 2 Un [place] hydrochloro 4-23 tablets by it y of thiazide 20:31: mouth [place] 20-12.5 mg 13 every Medical per tablet evening. [facility] lisinopril- 2019-0 Yes 2{tbl} Take 2 Un [place] hydrochloro 4-23 tablets by it y of thiazide 20:31: mouth [place] 20-12.5 mg 13 every Medical per tablet evening. [facility] lisinopril- 2019-0 Yes 2{tbl} Take 2 Un [place] hydrochloro 4-23 tablets by it y of thiazide 20:31: mouth [place] 20-12.5 mg 13 every Medical per tablet evening. [facility] lisinopril- 2019-0 Yes 2{tbl} Take 2 Un [place] hydrochloro 4-23 tablets by it y of thiazide 20:31: mouth [place] 20-12.5 mg 13 every Medical per tablet evening. [facility] Bismuth 2019-0 Yes [id number] 262mg Take 1 Uni vers Subsalicyla 4-23 tablet by ity of te 00:00: mouth 4 [place] (PEPTO-BISM 00 (four) Medica l OL) 262 mg times Branch tablet daily as needed (diarrhea) . acetaminoph 2019-0 Yes [id number] 650mg Take 1 Univers en 650 mg 4-23 tablet by ity o f CR tablet 00:00: mouth [place] 00 every 8 Medical (eight) Branch hours as needed for Pain or Fever. amLODIPine 2019-0 Yes [id number] 10mg Take 1 Univers 10 mg 4-23 tablet by ity of tablet 00:00: mouth [place] 00 daily. Medical Branch bromphenira 2020-0 Yes [id number] 10mL Take 10 mL Univers mine-pseudo 4-23 by mouth 4 it y of ephedrine-D 00:00: (four) [place] (BROMFED 00 times Medical DM) 2-30-10 daily as Bran ch mg/5 mL needed for syrup Cough. Bismuth 2020-0 Yes [id number] 262mg Take 1 Uni vers Subsalicyla 4-23 tablet by ity of te 00:00: mouth 4 [place] (PEPTO-BISM 00 (four) Medica l OL) 262 mg times Branch tablet daily as needed (diarrhea) . acetaminoph 2020-0 Yes [id number] 650mg Take 1 Univers en 650 mg 4-23 tablet by ity o f CR tablet 00:00: mouth [place] 00 every 8 Medical (eight) Branch hours as needed for Pain or Fever. amLODIPine 2020-0 Yes [id number] 10mg Take 1 Univers 10 mg 4-23 tablet by ity of tablet 00:00: mouth [place] 00 daily. Medical Branch bromphenira 2020-0 Yes [id number] 10mL Take 10 mL Univers mine-pseudo 4-23 by mouth 4 it y of ephedrine-D 00:00: (four) [place] M (BROMFED 00 times Medical DM) 2-30-10 daily as Bran ch mg/5 mL needed for syrup Cough. Bismuth 2020-0 Yes [id number] 262mg Take 1 Uni vers Subsalicyla 4-23 tablet by ity of te 00:00: mouth 4 [place] (PEPTO-BISM 00 (four) Medica l OL) 262 mg times Branch tablet daily as needed (diarrhea) . acetaminoph 2020-0 Yes [id number] 650mg Take 1 Univers en 650 mg 4-23 tablet by ity o f CR tablet 00:00: mouth [place] 00 every 8 Medical (eight) Branch hours as needed for Pain or Fever. amLODIPine 2020-0 Yes [id number] 10mg Take 1 Univers 10 mg 4-23 tablet by ity of tablet 00:00: mouth [place] 00 daily. Medical Branch bromphenira 2020-0 Yes [id number] 10mL Take 10 mL Univers mine-pseudo 4-23 by mouth 4 it y of ephedrine-D 00:00: (four) [place] M (BROMFED 00 times Medical DM) 2-30-10 daily as Bran ch mg/5 mL needed for syrup Cough. Bismuth 2020-0 Yes [id number] 262mg Take 1 Uni vers Subsalicyla 4-23 tablet by ity of te 00:00: mouth 4 [place] (PEPTO-BISM 00 (four) Medica l OL) 262 mg times Branch tablet daily as needed (diarrhea) . acetaminoph 2020-0 Yes [id number] 650mg Take 1 Univers en 650 mg 4-23 tablet by ity o f CR tablet 00:00: mouth [place] 00 every 8 Medical (eight) Branch hours as needed for Pain or Fever. amLODIPine 2020-0 Yes [id number] 10mg Take 1 Univers 10 mg 4-23 tablet by ity of tablet 00:00: mouth [place] 00 daily. Medical Branch bromphenira 2020-0 Yes [id number] 10mL Take 10 mL Univers mine-pseudo 4-23 by mouth 4 it y of ephedrine-D 00:00: (four) [place] M (BROMFED 00 times Medical DM) 2-30-10 daily as Bran ch mg/5 mL needed for syrup Cough. Bismuth 2020-0 Yes [id number] 262mg Take 1 Uni vers Subsalicyla 4-23 tablet by ity of te 00:00: mouth 4 [place] (PEPTO-BISM 00 (four) Medica l OL) 262 mg times Branch tablet daily as needed (diarrhea) . acetaminoph 2020-0 Yes [id number] 650mg Take 1 Univers en 650 mg 4-23 tablet by ity o f CR tablet 00:00: mouth [place] 00 every 8 Medical (eight) Branch hours as needed for Pain or Fever. amLODIPine 2020-0 Yes [id number] 10mg Take 1 Univers 10 mg 4-23 tablet by ity of tablet 00:00: mouth [place] 00 daily. Medical Branch bromphenira 2020-0 Yes [id number] 10mL Take 10 mL Univers mine-pseudo 4-23 by mouth 4 it y of ephedrine-D 00:00: (four) [place] M (BROMFED 00 times Medical DM) 2-30-10 daily as Bran ch mg/5 mL needed for syrup Cough. Bismuth 2020-0 Yes [id number] 262mg Take 1 Uni vers Subsalicyla 4-23 tablet by ity of te 00:00: mouth 4 [place] (PEPTO-BISM 00 (four) Medica l OL) 262 mg times Branch tablet daily as needed (diarrhea) . acetaminoph 2020-0 Yes [id number] 650mg Take 1 Univers en 650 mg 4-23 tablet by ity o f CR tablet 00:00: mouth [place] 00 every 8 Medical (eight) Branch hours as needed for Pain or Fever. amLODIPine 2020-0 Yes [id number] 10mg Take 1 Univers 10 mg 4-23 tablet by ity of tablet 00:00: mouth [place] 00 daily. Medical Branch bromphenira 2020-0 Yes [id number] 10mL Take 10 mL Univers mine-pseudo 4-23 by mouth 4 it y of ephedrine-D 00:00: (four) [place] M (BROMFED 00 times Medical DM) 2-30-10 daily as Bran ch mg/5 mL needed for syrup Cough. Bismuth 2020-0 Yes [id number] 262mg Take 1 Uni vers Subsalicyla 4-23 tablet by ity of te 00:00: mouth 4 [place] (PEPTO-BISM 00 (four) Medica l OL) 262 mg times Branch tablet daily as needed (diarrhea) . acetaminoph 2020-0 Yes [id number] 650mg Take 1 Univers en 650 mg 4-23 tablet by ity o f CR tablet 00:00: mouth [place] 00 every 8 Medical (eight) Branch hours as needed for Pain or Fever. amLODIPine 2020-0 Yes [id number] 10mg Take 1 Univers 10 mg 4-23 tablet by ity of tablet 00:00: mouth [place] 00 daily. Medical Branch bromphenira 2020-0 Yes [id number] 10mL Take 10 mL Univers mine-pseudo 4-23 by mouth 4 it y of ephedrine-D 00:00: (four) [place] M (BROMFED 00 times Medical DM) 2-30-10 daily as Bran ch mg/5 mL needed for syrup Cough. Bismuth 2020-0 Yes [id number] 262mg Take 1 Uni vers Subsalicyla 4-23 tablet by ity of te 00:00: mouth 4 [place] (PEPTO-BISM 00 (four) Medica l OL) 262 mg times Branch tablet daily as needed (diarrhea) . acetaminoph 2020-0 Yes [id number] 650mg Take 1 Univers en 650 mg 4-23 tablet by ity o f CR tablet 00:00: mouth [place] 00 every 8 Medical (eight) Branch hours as needed for Pain or Fever. amLODIPine 2020-0 Yes [id number] 10mg Take 1 Univers 10 mg 4-23 tablet by ity of tablet 00:00: mouth [place] 00 daily. Medical Branch bromphenira 2020-0 Yes [id number] 10mL Take 10 mL Univers mine-pseudo 4-23 by mouth 4 it y of ephedrine-D 00:00: (four) [place] M (BROMFED 00 times Medical DM) 2-30-10 daily as Bran ch mg/5 mL needed for syrup Cough. Bismuth 2020-0 Yes [id number] 262mg Take 1 Uni vers Subsalicyla 4-23 tablet by ity of te 00:00: mouth 4 [place] (PEPTO-BISM 00 (four) Medica l OL) 262 mg times Branch tablet daily as needed (diarrhea) . acetaminoph 2020-0 Yes [id number] 650mg Take 1 Univers en 650 mg 4-23 tablet by ity o f CR tablet 00:00: mouth [place] 00 every 8 Medical (eight) Branch hours as needed for Pain or Fever. amLODIPine 2020-0 Yes [id number] 10mg Take 1 Univers 10 mg 4-23 tablet by ity of tablet 00:00: mouth [place] 00 daily. Medical Branch acetaminoph 2020-0 Yes [id number] 650mg Take 1 Univers en 650 mg 4-23 tablet by ity o f CR tablet 00:00: mouth [place] 00 every 8 Medical (eight) Branch hours as needed for Pain or Fever. amLODIPine 2020-0 Yes [id number] 10mg Take 1 Univers 10 mg 4-23 tablet by ity of tablet 00:00: mouth [place] 00 daily. Medical Branch acetaminoph 2020-0 Yes [id number] 650mg Take 1 Univers en 650 mg 4-23 tablet by ity o f CR tablet 00:00: mouth [place] 00 every 8 Medical (eight) Branch hours as needed for Pain or Fever. amLODIPine 2020-0 Yes [id number] 10mg Take 1 Univers 10 mg 4-23 tablet by ity of tablet 00:00: mouth [place] 00 daily. Medical Branch acetaminoph 2020-0 Yes [id number] 650mg Take 1 Univers en 650 mg 4-23 tablet by ity o f CR tablet 00:00: mouth [place] 00 every 8 Medical (eight) Branch hours as needed for Pain or Fever. amLODIPine 2020-0 Yes [id number] 10mg Take 1 Univers 10 mg 4-23 tablet by ity of tablet 00:00: mouth [place] 00 daily. Medical Branch acetaminoph 2020-0 Yes [id number] 650mg Take 1 Univers en 650 mg 4-23 tablet by ity o f CR tablet 00:00: mouth [place] 00 every 8 Medical (eight) Branch hours as needed for Pain or Fever. amLODIPine 2020-0 Yes [id number] 10mg Take 1 Univers 10 mg 4-23 tablet by ity of tablet 00:00: mouth [place] 00 daily. Medical Branch amLODIPine 2020-0 Yes [id number] 10mg Take 1 Univers 10 mg 4-23 tablet by ity of tablet 00:00: mouth [place] 00 daily. Medical Branch amLODIPine 2020-0 Yes [id number] 10mg Take 1 Univers 10 mg 4-23 tablet by ity of tablet 00:00: mouth [place] 00 daily. Medical Branch amLODIPine 2020-0 Yes [id number] 10mg Take 1 Univers 10 mg 4-23 tablet by ity of tablet 00:00: mouth [place] 00 daily. Medical Branch amLODIPine 2020-0 Yes [id number] 10mg Take 1 Univers 10 mg 4-23 tablet by ity of tablet 00:00: mouth [place] 00 daily. Medical Branch amLODIPine 2020-0 Yes [id number] 10mg Take 1 Univers 10 mg 4-23 tablet by ity of tablet 00:00: mouth [place] 00 daily. Medical Branch amLODIPine 2020-0 Yes [id number] 10mg Take 1 Univers 10 mg 4-23 tablet by ity of tablet 00:00: mouth [place] 00 daily. Medical Branch amLODIPine 2020-0 Yes [id number] 10mg Take 1 Univers 10 mg 4-23 tablet by ity of tablet 00:00: mouth [place] 00 daily. Medical Branch amLODIPine 2020-0 Yes [id number] 10mg Take 1 Univers 10 mg 4-23 tablet by ity of tablet 00:00: mouth [place] 00 daily. Medical Branch amLODIPine 2020-0 Yes [id number] 10mg Take 1 Univers 10 mg 4-23 tablet by ity of tablet 00:00: mouth [place] 00 daily. Medical Branch amLODIPine 2020-0 Yes [id number] 10mg Take 1 Univers 10 mg 4-23 tablet by ity of tablet 00:00: mouth [place] 00 daily. Medical Branch bromphenira Yes [id number] 10mL Take 10 mL Univers mine-pseudo 4-23 by mouth 4 it y of ephedrine-D 00:00: (four) [place] (BROMFED 00 times Medical DM) 2-30-10 daily as Bran ch mg/5 mL needed for syrup Cough. amLODIPine 2019- No [id number] 10mg Take 1 Univers 10 mg 4-23 10-13 tablet by ity of tablet 00:00: 00:00 mouth [place] 00 :00 daily. Medical Branch acetaminoph 2019- No [id number] 650mg Take 1 Univers en 650 mg 4-23 08-13 tablet by ity of CR tablet 00:00: 00:00 mouth [place] 00 :00 every 8 Medical (eight) Branch hours as needed for Pain or Fever. acetaminoph 2019- No [id number] 650mg Take 1 Univers en 650 mg 4-14 03-13 tablet by ity of CR tablet 00:00: 00:00 mouth [place] 00 :00 every 8 Medical (eight) Branch hours as needed for Pain or Fever. bromphenira 2019- No [id number] 10mL Take 10 mL Univers mine-pseudo -23 -30 by mouth 4 i ty of ephedrine-D 00:00: 00:00 (four) [place] M (BROMFED 00 :00 times Medical DM) 2-30-10 daily as Bran ch mg/5 mL needed for syrup Cough. Bismuth 2019- No [id number] 262mg Take 1 Un [place] Subsalicyla -11 02-30 tablet by it y of te 00:00: 00:00 mouth 4 [place] (PEPTO-BISM 00 :00 (four) Medica l OL) 262 mg times Branch tablet daily as needed (diarrhea) . bromphenira 2019- No [id number] 10mL Take 10 mL Univers mine-pseudo 4-23 -30 by mouth 4 i ty of ephedrine-D 00:00: 00:00 (four) [place] M (BROMFED 00 :00 times Medical DM) 2-30-10 daily as Bran ch mg/5 mL needed for syrup Cough. Bismuth 0 2020- No [id number] 262mg Take 1 [facility] [place] Subsalicyla 11-12-30 tablet by it y of te 00:00: 00:00 mouth 4 [place] (PEPTO-BISM 00 :00 (four) Medica l OL) 262 mg times Branch tablet daily as needed (diarrhea) . metoprolol [id number] Yes 25mg Take 25 mg U nivers succinate 3-26 by mouth ity of XL 25 mg 24 16:07: daily. [place] hr tablet 35 Medical Branch PREDNISONE [id number] Yes 20mg Take 20 mg U nivers ORAL 3-26 by mouth ity of 16:07: daily. [place] [address] Indication Medical s: pt Branch takes this med at metoprolol 2018-0 Yes 25mg Take 25 mg U nivers succinate 3-26 by mouth ity of XL 25 mg 24 16:07: daily. [place] hr tablet 35 Medical Branch PREDNISONE 0 Yes 20mg Take 20 mg U nivers ORAL 3-26 by mouth ity of 16:07: daily. [place] [address] Indication Medical s: pt Branch takes this med at metoprolol 0 Yes 25mg Take 25 mg U nivers succinate 3-26 by mouth ity of XL 25 mg 24 16:07: daily. [place] hr tablet 35 Medical Branch PREDNISONE [id number] Yes 20mg Take 20 mg U nivers ORAL 3-26 by mouth ity of 16:07: daily. [place] [address] Indication Medical s: pt Branch takes this med at metoprolol 2017-0 Yes 25mg Take 25 mg U nivers succinate 3-26 by mouth ity of XL 25 mg 24 16:07: daily. [place] hr tablet 35 Medical Branch PREDNISONE [id number] Yes 20mg Take 20 mg U nivers ORAL 3-26 by mouth ity of 16:07: daily. [place] [address] Indication Medical s: pt Branch takes this med at metoprolol 2018-0 Yes 25mg Take 25 mg U nivers succinate 3-26 by mouth ity of XL 25 mg 24 16:07: daily. [place] hr tablet 35 Medical Branch PREDNISONE [id number] Yes 20mg Take 20 mg U nivers ORAL 3-26 by mouth ity of 16:07: daily. [place] [address] Indication Medical s: pt Branch takes this med at metoprolol 2018-0 Yes 25mg Take 25 mg U nivers succinate 3-26 by mouth ity of XL 25 mg 24 16:07: daily. [place] hr tablet 35 Medical Branch PREDNISONE [id number] Yes 20mg Take 20 mg U nivers ORAL 3-26 by mouth ity of 16:07: daily. [place] [address] Indication Medical s: pt Branch takes this med at metoprolol 2017-0 Yes 25mg Take 25 mg U nivers succinate 3-26 by mouth ity of XL 25 mg 24 16:07: daily. [place] hr tablet 35 Medical Branch PREDNISONE 0 Yes 20mg Take 20 mg U nivers ORAL 3-26 by mouth ity of 16:07: daily. [place] [address] Indication Medical s: pt Branch takes this med at metoprolol 2017-0 Yes 25mg Take 25 mg U nivers succinate 3-26 by mouth ity of XL 25 mg 24 16:07: daily. [place] hr tablet Medical [place] PREDNISONE 0 Yes 20mg Take 20 mg U nivers ORAL 3-26 by mouth ity of 16:07: daily. [place] [address] Indication Medical s: pt Branch takes this med at metoprolol 0 Yes 25mg Take 25 mg U nivers succinate 3-26 by mouth ity of XL 25 mg 24 16:07: daily. [place] hr tablet Medical Branch PREDNISONE 0 Yes 20mg Take 20 mg U nivers ORAL 3-26 by mouth ity of 16:07: daily. [place] [address] Indication Medical s: pt Branch takes this med at Vital Signs Vital Name Observation Time Observation Value Comments Source Systolic blood 2020-11-29 13:11:00 160 mm[Hg] Univer sity of pressure [facility] Diastolic blood 2020-11-29 13:11:00 95 mm[Hg] [facility] Heart rate 2020-11-29 13:11:00 81 /min [facility] Oxygen saturation in 2020-11-29 13:11:00 98 /min [facility] Arterial blood by [facility] Pulse oximetry Branch Respiratory rate 2020-11-29 13:07:00 18 /min [facility] Body temperature 2020-11-29 12:41:00 37.22 [place] [facility] Body height 2020-11-26 13:45:00 180.3 cm [facility] [place] [facility] Body weight 2020-11-26 13:45:00 94.802 kg [facility] [place] [facility] BMI 2020-11-26 13:45:00 29.15 kg/m2 [facility] [place] [facility] Systolic blood 2020-11-29 13:11:00 160 mm[Hg] Univer sity of pressure [place] [facility] Diastolic blood 2020-11-29 13:11:00 95 mm[Hg] Unive rsity of pressure [place] [facility] Heart rate 2020-11-29 13:11:00 81 /min [facility] [place] [facility] Oxygen saturation in 2020-11-29 13:11:00 98 /min University Arterial blood by [facility] Pulse oximetry Branch Respiratory rate 2020-11-29 13:07:00 18 /min [facility] [place] [facility] Body temperature 2020-11-29 12:41:00 37.22 [place] [facility] [place] [facility] Body height 2020-11-26 13:45:00 180.3 cm [facility] [place] [facility] Body weight 2020-11-26 13:45:00 94.802 kg [facility] [place] [facility] BMI 2020-11-26 13:45:00 29.15 kg/m2 [facility] [place] [facility] Systolic blood 2020-11-17 20:21:00 150 mm[Hg] Univer sity of pressure [place] [facility] Diastolic blood 2020-11-17 20:21:00 99 mm[Hg] Unive rsity of pressure [place] [facility] Heart rate 2020-11-17 20:20:00 92 /min [facility] [place] [facility] Body temperature 2020-11-17 20:20:00 36.39 [place] [facility] [place] [facility] Respiratory rate 2020-11-17 20:20:00 18 /min [facility] [place] [facility] Body height 2020-11-17 20:20:00 180.3 cm [facility] [place] [facility] Body weight 2020-11-17 20:20:00 95.119 kg [facility] [place] [facility] BMI 2020-11-17 20:20:00 29.25 kg/m2 [facility] [place] [facility] Oxygen saturation in 2020-11-17 20:20:00 96 /min University of Arterial blood by [facility] ranjit Pulse oximetry Branch Systolic blood 2020-04-15 20:43:00 136 mm[Hg] Univer sity of pressure [place] [facility] Diastolic blood 2020-04-15 20:43:00 84 mm[Hg] Unive rsity of pressure [place] [facility] Heart rate 2020-04-15 20:43:00 80 /min [facility] [place] [facility] Body temperature 2020-04-15 20:43:00 36.83 [place] [facility] [place] [facility] Respiratory rate 2020-04-15 20:43:00 20 /min [facility] [place] [facility] Body height 2020-04-15 20:43:00 180.3 cm [facility] [place] [facility] Body weight 2020-04-15 20:43:00 91.173 kg [facility] [place] [facility] BMI 2020-04-15 20:43:00 28.03 kg/m2 [facility] [place] [facility] Oxygen saturation in 2020-04-15 20:43:00 98 /min University of Arterial blood by [facility] Pulse oximetry Branch Systolic blood 2020-03-23 14:12:00 127 mm[Hg] Univer sity of pressure [place] [facility] Diastolic blood 2020-03-23 14:12:00 86 mm[Hg] Unive rsity of pressure [place] [facility] Heart rate 2020-03-23 14:12:00 81 /min [facility] [place] [facility] Body temperature 2020-03-23 14:12:00 36.11 [place] [facility] [place] [facility] Respiratory rate 2020-03-23 14:12:00 20 /min [facility] Body height 2020-03-23 14:12:00 180.3 cm [facility] Body weight 2020-03-23 14:12:00 91.264 kg [facility] BMI 2020-03-23 14:12:00 28.06 kg/m2 [facility] Oxygen saturation in 2020-03-23 14:12:00 95 /min University of Arterial blood by [facility] Pulse oximetry Branch Systolic blood 2020-03-15 16:24:00 121 mm[Hg] Univer sity [facility] Diastolic blood 2020-03-15 16:24:00 77 mm[Hg] Unive rsity [facility] Heart rate 2020-03-15 16:24:00 86 /min [facility] Body height 2020-03-15 16:24:00 180.3 cm [facility] Body weight 2020-03-15 16:24:00 90.266 kg [facility] BMI 2020-03-15 16:24:00 27.75 kg/m2 [facility] Systolic blood 2020-03-04 16:46:00 131 mm[Hg] [facility] Diastolic blood 2020-03-04 16:46:00 88 mm[Hg] Unive [facility] Heart rate 2020-03-04 16:46:00 81 /min [facility] Respiratory rate 2020-03-04 16:46:00 19 /min [facility] Body height 2020-03-04 16:46:00 180.3 cm [facility] Body weight 2020-03-04 16:46:00 90.538 kg [facility] BMI 2020-03-04 16:46:00 27.84 kg/m2 [facility] Oxygen saturation in 2020-03-04 16:46:00 94 /min University of Arterial blood by [place] [facility] ranjit Pulse oximetry Branch Systolic blood 2020-03-04 16:46:00 131 mm[Hg] [facility] Diastolic blood 2020-03-04 16:46:00 88 mm[Hg] Unive [facility] Heart rate 2020-03-04 16:46:00 81 /min [facility] Respiratory rate 2020-03-04 16:46:00 19 /min [facility] Body height 2020-03-04 16:46:00 180.3 cm [facility] Body weight 2020-03-04 16:46:00 90.538 kg [facility] BMI 2020-03-04 16:46:00 27.84 kg/m2 [facility] Oxygen saturation in 2020-03-04 16:46:00 94 /min University of Arterial blood by [facility] ranjit Pulse oximetry Branch Systolic blood 2020-02-19 20:46:00 108 mm[Hg] [facility] Diastolic blood 2020-02-19 20:46:00 72 mm[Hg] [facility] Heart rate 2020-02-19 20:46:00 81 /min [facility] Body temperature 2020-02-19 20:46:00 36.67 Tiera [facility] Respiratory rate 2020-02-19 20:46:00 18 /min [facility] Body height 2020-02-19 20:46:00 180.3 cm [facility] Body weight 2020-02-19 20:46:00 91.717 kg [facility] BMI 2020-02-19 20:46:00 28.20 kg/m2 [facility] Oxygen saturation in 2020-02-19 20:46:00 93 /min University of Arterial blood by [facility] ranjit Pulse oximetry Branch Systolic blood 2019-11-13 20:31:00 142 mm[Hg] [facility] Diastolic blood 2019-11-13 20:31:00 106 mm[Hg] [facility] Heart rate 2019-11-13 20:27:00 104 /min [facility] Body temperature 2019-11-13 20:27:00 36.89 Tiera [facility] Respiratory rate 2019-11-13 20:27:00 16 /min [facility] Body height 2019-11-13 20:27:00 180.3 cm [facility] Body weight 2019-11-13 20:27:00 102.967 kg [facility] BMI 2019-11-13 20:27:00 31.66 kg/m2 [facility] Oxygen saturation in 2019-11-13 20:27:00 96 /min University [facility] Arterial blood by [place] [facility] ranjit Pulse oximetry Branch Procedures Procedure Date / Time Performing Clinician Source Performed ASSIGNMENT OF BENEFITS 2020-12-10 19:56:52 [facility] [place] [facility] [place] TIME OR 2020-11-29 12:35:00 Brice Geller [facility] (NON-REPORTABLE) Medical Branch LUMBAR EPIDURAL STEROID 2020-11-29 12:16:00 [facility] DAY SURGERY - ADC 2020-11-29 05:01:00 Doctor Albert [facility] Name Medical [place] CBC WITH DIFF 2020-11-26 15:03:00 Brice Geller [facility] Medical Branch COVID-19 (ID NOW RAPID 2020-11-26 15:03:00 Brice Geller Un [facility] TESTING) Medical Branch LAB ONLY COVID 2020-11-26 15:03:00 Brice Geller [facility] INTERPRETATION Medical Branch ASSIGNMENT OF BENEFITS 2020-11-26 14:43:36 Doctor Unassigned, [facility] [place] Medical Branch ASSIGNMENT OF BENEFITS 2020-11-26 14:43:36 Doctor Unassapril, [facility] Name Medical [place] DSU PRE-OP 2020-11-25 05:01:00 Doctor Unakevin [facility] Name Medical [place] POCT URINALYSIS AUTO 2020-04-15 20:49:00 Avery Gandhi [facility] CBC WITH DIFF 2020-03-23 15:18:00 Robbie Dior [facility] ASSIGNMENT OF BENEFITS 2020-02-19 20:25:25 Doctor Unassapril, [facility] Name Medical [place] Plan of Care Planned Activity Planned Date Details Comments Source Future Scheduled 2024 Screening for University of Test 00:00:00 malignant neoplasm [place] [facility] colon (procedure) Branch [code = 504155140] Future Scheduled 2024 Screening for University of Test 00:00:00 malignant neoplasm [place] [facility] colon (procedure) Branch [code = 272025033] Future Scheduled 2024 Screening for University of Test 00:00:00 malignant neoplasm [place] [facility] of colon (procedure) Branch [code = 734224864] Future Scheduled 2021-03-23 INFLUENZA VACCINE Univer sity of Test 00:00:00 (Season Ended) [code [facility] = INFLUENZA VACCINE Branch (Season Ended)] Future Scheduled 2021-03-23 INFLUENZA VACCINE Univer sity of Test 00:00:00 (Season Ended) [code [facility] edical = INFLUENZA VACCINE Branch (Season Ended)] Future Scheduled 2021-03-23 INFLUENZA VACCINE Univer sity of Test 00:00:00 (Season Ended) [code [facility] edical = INFLUENZA VACCINE Branch (Season Ended)] Future Scheduled 2021-02-18 Depression screening Uni versity of Test 00:00:00 (procedure) [code = [facility] dical 804433731] Branch Future Scheduled 2021-02-18 Depression screening Uni versity of Test 00:00:00 (procedure) [code = [facility] dical 456656940] Branch Future Scheduled 2021-02-18 Depression screening Uni versity of Test 00:00:00 (procedure) [code = [facility] dical 167257751] Branch Diagnostic Test 2020-11-26 COVID-19 (ID NOW Expected: Universi ty of Pending 00:00:00 RAPID TESTING) [code 11/26/2020, [facility] edical = 03735-2] Expires: Branch 11/26/2021 Diagnostic Test 2020-11-26 CBC WITH DIFF [code Expected: Unive rsity of Pending 00:00:00 = 15847-7] 11/26/2020, [facility] Expires: Branch 11/26/2021 Future Scheduled 1993 DTaP,Tdap,and Td Univers ity of Test 00:00:00 Vaccines (1 - Tdap) [facility] dical [code = Branch DTaP,Tdap,and Td Vaccines (1 - Tdap)] Future Scheduled 1993 DTaP,Tdap,and Td Univers ity of Test 00:00:00 Vaccines (1 - Tdap) [facility] dical [code = Branch DTaP,Tdap,and Td Vaccines (1 - Tdap)] Future Scheduled 1993 DTaP,Tdap,and Td Univers ity of Test 00:00:00 Vaccines (1 - Tdap) [facility] dical [code = Branch DTaP,Tdap,and Td Vaccines (1 - Tdap)] Future Scheduled 1992 Hepatitis C University of Test 00:00:00 screening [facility] (procedure) [code = Branch [id number]] Future Scheduled 1992 Hepatitis C University of Test 00:00:00 screening [place] [facility] (procedure) [code = Branch 757201613] Future Scheduled 1992 Hepatitis C University of Test 00:00:00 screening [place] [facility] (procedure) [code = Branch 092167840] Future Scheduled 1990 SARS-CoV-2 University of Test 00:00:00 (COVID-19) Vaccine [place] [facility] (1) [code = Branch SARS-CoV-2 (COVID-19) Vaccine (1)] Future Scheduled 1990 SARS-CoV-2 University of Test 00:00:00 (COVID-19) Vaccine [place] [facility] (1) [code = Branch SARS-CoV-2 (COVID-19) Vaccine (1)] Future Scheduled 1990 SARS-CoV-2 University of Test 00:00:00 (COVID-19) Vaccine [place] [facility] (1) [code = Branch SARS-CoV-2 (COVID-19) Vaccine (1)] Future Scheduled 1980 PNEUMOCOCCAL 0-64 Univer sity of Test 00:00:00 YEARS COMBINED [place] [facility] SERIES (1 of 1 - Branch PPSV23) [code = PNEUMOCOCCAL 0-64 YEARS COMBINED SERIES (1 of 1 - PPSV23)] Future Scheduled 1980 PNEUMOCOCCAL 0-64 Univer sity of Test 00:00:00 YEARS COMBINED [place] [facility] SERIES (1 of 1 - Branch PPSV23) [code = PNEUMOCOCCAL 0-64 YEARS COMBINED SERIES (1 of 1 - PPSV23)] Future Scheduled 1980 PNEUMOCOCCAL 0-64 Univer sity of Test 00:00:00 YEARS COMBINED [place] [facility] SERIES (1 of 1 - Branch PPSV23) [code = PNEUMOCOCCAL 0-64 YEARS COMBINED SERIES (1 of 1 - PPSV23)] Future Scheduled COVID-19 (ID NOW Univers ity of Test RAPID TESTING) [code [place] [facility] = 34420-6] Branch Future Scheduled CBC WITH DIFF [code Univ ersity of Test = 37318-6] [facility] Encounters Start End Encounter Admission Attending Care Care Encounter Source Date/Time Date/Time Type Type Clinicians Facility Department ID 2021-05-22 Outpatient R CHUCK GELLER MOISES [id number] Univers 17:17:58 BRICE ity of [facility] 2021-05-22 [facility] [id number] Univers 17:17:54 BRICE ity [facility] 2021-06-14 2021-06-14 [facility] 1.2.840.114 [id number] Univers 00:00:00 00:00:00 Robbie DODSON [id number] i ty of [id number] [phone] [address] 2021-05-15 2021-05-15 [facility] 1.2.840.114 [id number] Univers 00:00:00 00:00:00 Robbie Dodson [id number] [id number] [phone] [address] 2021-03-22 2021-03-22 [facility] 1.2.840.114 [id number] Univers 00:00:00 00:00:00 Robbie Dodson [id number] [id number] [phone] [address] 2021-03-18 2021-03-18 Outpatient R OVI [facility] [id number] Univers 13:20:00 13:20:00 ROBBIE [id number] [facility] 2021-03-18 2021-03-18 Outpatient R OVI [facility] [id number] Univers 13:20:00 13:20:00 ROBBIE [facility] 2020-12-17 2020-12-17 [facility] 1.2.840.114 [id number] Univers 00:00:00 00:00:00 Robbie Dodson 350.1.13.10 [id number] [phone] [address] 2020-12-10 2020-12-10 Laboratory Only, Adc Test [facility] 1.2.840. 114 [id number] Univers 14:56:11 15:11:11 Only Brice Geller 350.1.13.1 0 [place] [phone] [facility] 353 Branch 2020-12-10 2020-12-10 Outpatient R [facility] [id number] Univers 09:00:00 09:00:00 [id number] ity of [facility] 2020-12-10 2020-12-10 [facility] [id number] Univers 09:00:00 09:00:00 BRICE ity [facility] 2020-12-10 2020-12-10 Orders Doctor TESFAYE 1.2.840.114 [id number] Univers 00:00:00 00:00:00 Only Unassigned, [place] 350.1.13.10 ity of [place] [facility] 4.2.7.2.686 [place] [phone] [facility] 009 [place] 2020-11-29 2020-11-29 Surgery [facility] 1.2.541.837 [id number] Univers 09:00:00 09:21:00 Brice Cobianton 350.1.13.10 [place] [phone] [facility] 020 Branch 2020-11-29 2020-11-29 [facility] 1.2.840.114 [id number] Univers 06:17:00 08:21:00 Encounter Brice Cobianton 350.1.13.10 [place].2.[place] [phone] [facility] 071 Branch 2020-11-29 2020-11-29 Orders Doctor TESFAYE 1.2.840.114 [id number] Univers 00:00:00 00:00:00 Only Unassigned, [place] 350.1.13.10 ity of [place] [facility] 4.2.7.2.686 [place] [phone] [facility] 009 Branch 2020-11-26 2020-11-26 Outpatient R [facility] [id number] Univers 12:00:00 12:00:00 [id number] ity of [facility] 2020-11-26 2020-11-26 Outpatient R YIMI [facility] [id number] Univers 12:00:00 12:00:00 BRICE ity of [facility] 2020-11-26 2020-11-26 Laboratory Only, Adc Test [facility] 1.2.840. 114 [id number] Univers 09:46:31 10:01:31 Only Brice Geller 350.1.13.1 0 [place].2.686 [place] [phone] [address] 2020-11-26 2020-11-26 Spray Machine Loader Corey, [place] Lab Main [facility] 1.2.8 40.114 [id number] Univers 09:43:52 09:58:52 Visit Brice Geller Vinayak 350.1.13.1 0 [place].2.[place] [phone] Ne [facility] 2020-11-26 2020-11-26 Orders Doctor CARLIN 1.2.840.114 [id number] Univers 00:00:00 00:00:00 Only [place]assigned[place] 350.1.13.10 ity of [place] [facility] 4.2.7.2.686 [place] [phone] [facility] 009 Mcfarl[place] 2020-11-25 2020-11-25 Orders Doctor CARLIN 1.2.840.114 [id number] Univers 00:00:00 00:00:00 Only Unassigned, [place] 350.1.13.10 ity of [place] [facility] 4.2.7.2.686 [place] [phone] [facility] 009 Mcfarlan 2020-11-17 2020-11-17 Office Ovi [facility] 1.2.840.114 [id number] Univers 15:11:19 15:54:54 Visit Robbie Dodson 350.1.13.10 [place] [phone] Ne dical nal 044 [facility] 2020-11-172020-11-17 Outpatient R [facility] [id number] Univers 15:20:00 15:20:00 ROBBIE [id number] [facility] 2020-11-17 2020-11-17 Outpatient R [facility] [id number] Univers 15:20:00 15:20:00 ROBBIE [facility] 2020-10-30 2020-10-30 [facility] 1.2.840.114 [id number] Univers 00:00:00 00:00:00 Robbie Cisse 350.1.13.10 it y of [place] 4.2.7.2.686 [place] Professio [phone] [address] One 2020-10-19 2020-10-19 Outpatient R [facility] [id number] Univers 14:40:00 14:40:00 ROBBIE [id number] [facility] 2020-10-19 2020-10-19 Outpatient R [facility] [id number] Univers 14:40:00 14:40:00 ROBBIE [facility] 2020-10-18 2020-10-18 [facility] 1.2.840.114 [id number] Univers 00:00:00 00:00:00 Robbie Dodson 350.1.13.10 i ty [place] [phone] [address] 2020-09-23 2020-09-23 [facility] 1.2.840.114 [id number] Univers 00:00:00 00:00:00 Betty Dodson 350.1.13.10 i ty of [place].2.[place] [phone] [address] 2020-08-11 2020-08-11 [facility] 1.2.840.114 [id number] Univers 00:00:00 00:00:00 Robbie Dodson 350.1.13.10 i ty [place] [phone] Ne dical nal 044 [facility] 2020-07-20 2020-07-20 Telemedici [facility] 1.2.840.114 [id number] Univers 07:50:43 13:12:30 ne Visit Robbie Dodson 350.1.13.10 ity [place] [phone] Ne dical nal [address] [place] [address] 2020-07-20 2020-07-20 Outpatient R [facility] [id number] Univers 08:40:00 08:40:00 ROBBIE [id number] [facility] 2020-07-20 2020-07-20 Outpatient R [facility] [id number] Univers 08:40:00 08:40:00 ROBBIE [facility] 2020-07-01 2020-07-01 [facility]brittyn [facility] 1.2.840.114 [id number] Univers 00:00:00 00:00:00 Betty Dodson 350.1.13.10 i ty of [place]2.[place] [phone] Ne dicsd nal [address] [place] [address] 2020-06-23 2020-06-23 Outpatient R [facility] [id number] Univers 14:40:00 14:40:00 ROBBIE [facility] 2020-06-23 2020-06-23 Outpatient R [facility] [id number] Univers 09:00:00 09:00:00 [facility] 2020-06-14 2020-06-14 Outpatient R [facility] [id number] Univers 13:30:00 13:30:00 RICHAR [id number] [facility] 2020-06-14 2020-06-14 Outpatient R [facility] [id number] Univers 13:30:00 13:30:00 RICHAR [facility] 2020-05-02 2020-05-02 Refbrittny [facility] 1..840.114 [id number] Univers 00:00:00 00:00:00 [facility] 350.1.13.10 it y of [place] 4.2.7.2.686 [place] Profess[place] [phone] Ne dical nal 044 [facility] One 2020-04-15 2020-04-15 [facility] 1.2.840.114 [id number] Univers 15:26:41 16:15:27 Visit [facility] Vinayak 350.1.13.10 [place] 4[place].2.[place] [phone] Ne dical nal 204 [facility] 2020-04-15 2020-04-15 Outpatient R HIRAM [facility] [id number] Univers 15:30:00 15:30:00 [facility] [id number] [facility] 2020-04-15 2020-04-15 Outpatient [facility] [id number] Univers 15:30:00 15:30:00 [facility] 2020-04-14 2020-04-14 Outpatient R MIKE [facility] [id number] Univers 08:30:00 08:30:00 [facility] [id number] [facility] 2020-04-14 2020-04-14 Outpatient R MIKE [facility] [id number] Univers 08:30:00 08:30:00 RICHAR [facility] 2020-03-23 2020-03-23 Spray Machine Loader 2, Adc Lab [facility] 1.2.840.114 [id number] Univers 10:12:51 10:27:51 Visit Robbie Dior 350.1.13.10 [place] [phone] Ne dical nal 353 [facility] 2020-03-23 2020-03-23 Office [facility] 1.2.840.114 [id number] Univers 08:52:24 10:03:07 Visit Robbie Dodson 350.1.13.10 i ty [place] [phone] Ne dical nal 044 [facility] 2020-03-23 2020-03-23 Outpatient R OVI, [facility] [id number] Univers 09:20:00 09:20:00 ROBBIE ity [facility] 2020-03-23 2020-03-23 Outpatient R OVI [facility] [id number] Univers 09:20:00 09:20:00 ROBBIE ity [facility] 2020-03-15 2020-03-15 Laboratory Pc, Adc Echo Room 1 - [facility] 1 .2.840.114 [id number] Univers 11:19:09 11:54:47 Only ChloéMargofaridatortsen [place] 350.1.13.10 [place] 4[place].2.[place] [phone] Ne dical nal [address] [place] [address] 2020-03-15 2020-03-15 Outpatient R [facility] [id number] Univers 11:00:00 11:00:00 [id number] ity [facility] 2020-03-15 2020-03-15 Outpatient R [facility] [id number] Univers 11:00:00 11:00:00 ity [facility] 2020-03-04 2020-03-04 Office [facility] 1.2.840.114 [id number] Univers 11:30:10 12:03:59 Visit Sivakumar [place] 350.1.13.10 [place] 4[place].2.[place] [phone] Ne dical nal [address] [place] [address] 2020-03-04 2020-03-04 Office [facility] 1.2.840.114 [id number] 11:30:10 12:03:59 Visit Sivakumar [place] 350.1.13.10 [place] 4.2.7.2.686 Professio [phone] [address] 2020-03-04 2020-03-04 Outpatient R [facility] [id number] Univers 10:40:00 10:40:00 SIVAKUMAR [id number] ity o f [facility] 2020-03-04 2020-03-04 Outpatient R [facility] [id number] Univers 10:40:00 10:40:00 SIVAKUMAR kwok o f [facility] 2020-02-24 2020-02-24 Refill [facility] 1.2.840.114 [id number] Univers 00:00:00 00:00:00 [facility] 350.1.13.10 it y of [place] 4.2.7.2.686 [place] Professio [phone] [address] Office [facility] 2020-02-24 2020-02-24 Telephone [facility] 1.2.840.114 [id number] Univers 00:00:00 00:00:00 [facility] 350.1.13.10 it y of [place] 4.2.7.2.686 [place] Professio [phone] [address] 2020-02-19 2020-02-19 Office [facility] 1.2.840.114 [id number] Univers 15:26:05 16:47:38 Visit Robbie Dodson 350.1.13.10 [place] [phone] [address] 2020-02-19 2020-02-19 Outpatient R [facility] [id number] Univers 15:20:00 15:20:00 ROBBIE [id number] y [facility] 2020-02-19 2020-02-19 Outpatient R [facility] [id number] Univers 15:20:00 15:20:00 ROBBIE ity [facility] 2020-02-19 2020-02-19 Orders Doctor CARLIN 1.2.840.114 [id number] Univers 00:00:00 00:00:00 Only [place]assigned[place] 350.1.13.10 ity of [place] [facility] 4.2.7.2.686 [place] [phone] [address] 2020-02-13 2020-02-13 [facility] 1.2.840.114 [id number] Univers 00:00:00 00:00:00 Betty Cobianton 350.1.13.10 i ty of [place].2.[place] [phone] Ne dicsd nal [address] [place] [address] 2020-02-12 2020-02-12 Outpatient R [facility] [id number] Univers 15:00:00 15:00:00 [id number] ity of [facility] 2020-02-12 2020-02-12 Outpatient R FRANCESCO [facility] [id number] Univers 15:00:00 15:00:00 SHARON ity of [facility] 2020-02-12 2020-02-12 Laboratory Lab, Adc Fam Pob I [facility] 1.2. 840.114 [id number] Univers 14:26:54 14:46:54 Only Sharon Maya 350.1.13.10 ity of [place] 4.2.7.2.686 [place] Professio [phone] [address] Office Building One 2020-02-12 2020-02-12 Letter Doctor TESFAYE 1.2.840.114 [id number] Univers 00:00:00 00:00:00 (Out) [place]assigned[place] 350.1.13.10 [facility] 4.2.7.2.686 [place] [phone] [address] 2019-12-08 2019-12-08 Outpatient R RAVINDER [facility] [id number] Univers 09:30:00 09:30:00 BETTY [id number] ity of [facility] 2019-12-08 2019-12-08 Outpatient R JENNYMOUSTAPHA [facility] [id number] Univers 09:30:00 09:30:00 BETTY ity [facility] 2019-12-08 2019-12-08 Telemedici [facility]RE[facility] 1.2.840.114 [id number] Univers 07:55:53 08:25:53 ne Visit Betty Dodson 350.1.13.10 ity of [place]2.[place] [phone] [address] 2019-11-27 2019-11-27 Telephone Francesco [facility] [id number] Univers 00:00:00 00:00:00 Sharon Cisse [id number] it y of [place] [id number] [place] as Professio [phone] Ne yonatan [facility] 2019-11-14 2019-11-14 [place] [facility] [id number] Univers 00:00:00 00:00:00 Robbie Cisse [id number] it y of [place] [id number] [place] as Professio [phone] [facility] Hayley Mcfarlan Office [facility] 2019-11-13 2019-11-13 Urgent Pob1, Acute Care Clinic [facility] [id number]. [id number] Univers 15:27:16 15:59:22 [facility] Robbie Dior 350..13.10 ity of [place] [id number] [place] as Professio [phone] [address] 2019-11-13 2019-11-13 [id number] [facility] 15:40:00 15:40:00 ROBBIE [facility] Results Test Description Test Time Test Comments Results Result Sourc e Comments LAB ONLY COVID 2020-11- COVID [place] [id number] InterpretationInte [facility] 03:19:25 rpretation/Recomme Mcfarlan ndations: Molecular NAAT Tests for Active Infection with the SARS-CoV-2 Virus: The patient has currently tested negative for the SARS-CoV-2 virus that causes COVID-19 illness. This most likely indicates that the patient does not have an active infection with the SARS-CoV-2 virus. However, infection is not completely ruled out as the false negative rate for molecular NAAT testing using a nasopharyngeal sample can be up to 30%, mostly dependent on the timing of sample collection in relation to illness onset and any deficiencies in sampling techniques. If the patient has symptoms concerning for COVID-19 illness, a repeat NAAT test (PCR, Rapid ID Now, etc.) should be performed, at which time the SARS-CoV-2 virus - if present - may have reached a detectable viral load (usually peaking by the end of the first week of symptoms). Tests for IgM and/or IgG Antibodies to the SARS-CoV-2 Virus: If the patient develops COVID-19 illness in the future, testing for IgM and IgG antibodies approximately 3 weeks after illness onset will likely indicate if the patient has produced antibodies to the SARS-CoV-2 virus. However, some patients may take longer to develop detectable antibodies, while some patients who were infected with SARS-CoV-2 may never develop antibodies. While antibodies to SARS-CoV-2 may provide some degree of immunity, at this time the strength and duration of the antibody response is unknown. Interpretation Result Comments:These interpretation comments are based upon all COVID-19 testing the patient has had at [facility], including molecular NAAT testing (more commonly known as PCR testing and Rapid ID Now testing) and antibody testing. It does not take into account any testing that a patient has had outside of the [facility] medical record. [facility]COVID QndeljvPVXQ-EuR-0 NAAT (no units) ? ? Date ? Value ? 02/12/2020 ? Not Detected ? ? ? 11/13/2019 ? Not Detected ? SARS-CoV -2 Rapid ID NOW (no units) ? ? Date ? Value ? 11/26/2020 ? Not Detected ? [facility] LAB ONLY COVID 2020-11-20 COVID DMT [facility] 1 InterpretationInte [facility] 03:19:25 rpretation/Recomme Branch ndations: Molecular NAAT Tests for Active Infection with the SARS-CoV-2 Virus: The patient has currently tested negative for the SARS-CoV-2 virus that causes COVID-19 illness. This most likely indicates that the patient does not have an active infection with the SARS-CoV-2 virus. However, infection is not completely ruled out as the false negative rate for molecular NAAT testing using a nasopharyngeal sample can be up to 30%, mostly dependent on the timing of sample collection in relation to illness onset and any deficiencies in sampling techniques. If the patient has symptoms concerning for COVID-19 illness, a repeat NAAT test (PCR, Rapid ID Now, etc.) should be performed, at which time the SARS-CoV-2 virus - if present - may have reached a detectable viral load (usually peaking by the end of the first week of symptoms). Tests for IgM and/or IgG Antibodies to the SARS-CoV-2 Virus: If the patient develops COVID-19 illness in the future, testing for IgM and IgG antibodies approximately 3 weeks after illness onset will likely indicate if the patient has produced antibodies to the SARS-CoV-2 virus. However, some patients may take longer to develop detectable antibodies, while some patients who were infected with SARS-CoV-2 may never develop antibodies. While antibodies to SARS-CoV-2 may provide some degree of immunity, at this time the strength and duration of the antibody response is unknown. Interpretation Result Comments:These interpretation comments are based upon all COVID-19 testing the patient has had at [facility], including molecular NAAT testing (more commonly known as PCR testing and Rapid ID Now testing) and antibody testing. It does not take into account any testing that a patient has had outside of the [facility] medical record. [facility] SERVICESCOVID GihtirwWNOL-AlO-1 NAAT (no units) ? ? Date ? Value ? 02/12/2020 ? Not Detected ? ? ? 11/13/2019 ? Not Detected ? SARS-CoV -2 Rapid ID NOW (no units) ? ? Date ? Value ? 11/26/2020 ? Not Detected ? [facility] LAB ONLY COVID 2020-05-1 COVID DMT [facility] 1 InterpretationInte [facility] 03:19:25 rpretation/Recomme Branch ndations: Molecular NAAT Tests for Active Infection with the SARS-CoV-2 Virus: The patient has currently tested negative for the SARS-CoV-2 virus that causes COVID-19 illness. This most likely indicates that the patient does not have an active infection with the SARS-CoV-2 virus. However, infection is not completely ruled out as the false negative rate for molecular NAAT testing using a nasopharyngeal sample can be up to 30%, mostly dependent on the timing of sample collection in relation to illness onset and any deficiencies in sampling techniques. If the patient has symptoms concerning for COVID-19 illness, a repeat NAAT test (PCR, Rapid ID Now, etc.) should be performed, at which time the SARS-CoV-2 virus - if present - may have reached a detectable viral load (usually peaking by the end of the first week of symptoms). Tests for IgM and/or IgG Antibodies to the SARS-CoV-2 Virus: If the patient develops COVID-19 illness in the future, testing for IgM and IgG antibodies approximately 3 weeks after illness onset will likely indicate if the patient has produced antibodies to the SARS-CoV-2 virus. However, some patients may take longer to develop detectable antibodies, while some patients who were infected with SARS-CoV-2 may never develop antibodies. While antibodies to SARS-CoV-2 may provide some degree of immunity, at this time the strength and duration of the antibody response is unknown. Interpretation Result Comments:These interpretation comments are based upon all COVID-19 testing the patient has had at [facility], including molecular NAAT testing (more commonly known as PCR testing and Rapid ID Now testing) and antibody testing. It does not take into account any testing that a patient has had outside of the [facility] medical record. [facility] SERVICESCOVID UhlvsjrFSGR-DbC-1 NAAT (no units) ? ? Date ? Value ? 02/12/2020 ? Not Detected ? ? ? 11/13/2019 ? Not Detected ? SARS-CoV -2 Rapid ID NOW (no units) ? ? Date ? Value ? 11/26/2020 ? Not Detected ? [facility] [place] TIME OR 2020-11-20 These images do Universit y of (NON-REPORTABLE) 0 not require a [facility] 14:30:48 Radiology Branch diagnostic report. COVID-19 (ID NOW RAPID TESTING) 2020-11-26 15:47:57 Test Item Value Reference Range Interpretation Comme nts SARS-CoV-2 Rapid ID NOW (test code Not Detected Not Detected = 21988-6) ALEC (test code = ALEC) ID NOW COVID-19 Assay is an isothermal nucleic acid amplification test intended for the qualitative detection of nucleic acid from SARS-CoV-2 viral RNA in nasopharyngeal (CASINO CASHIER) specimens. It is used under Emergency Use Authorization (EUA) by FDA. The limit of detection (LOD) of the assay is 125 Genome Equivalents/mL. A positive result is indicative of the presence of SARS-CoV-2 RNA. ?Clinical correlation with patient history and other diagnostic information is necessary to determine patient infection status. A negative (Not Detected) result does not preclude SARS-CoV-2 infection. In patients with clinical symptoms and other tests that are consistent with SARS-CoV-2 infection, negative results should be treated as presumptive negative and a new specimen should be tested with alternative PCR molecular test. Invalid: Please collect a new specimen for repeat patient testing if clinically indicated. Lab Interpretation (test code = Normal 23557-4) [facility]26 15:47:57 Test Item Value Reference Range Interpretation Comments SARS-CoV-2 Rapid ID NOW Not Detected Not Detected (test code = 65078-6) ALEC (test code = ALEC) ID NOW COVID-19 Assay is an isothermal nucleic acid amplification test intended for the qualitative detection of nucleic acid from SARS-CoV-2 viral RNA in nasopharyngeal (CASINO CASHIER) specimens. It is used under Emergency Use Authorization (EUA) by FDA. The limit of detection (LOD) of the assay is 125 Genome Equivalents/mL. A positive result is indicative of the presence of SARS-CoV-2 RNA. ?Clinical correlation with patient history and other diagnostic information is necessary to determine patient infection status. A negative (Not Detected) result does not preclude SARS-CoV-2 infection. In patients with clinical symptoms and other tests that are consistent with SARS-CoV-2 infection, negative results should be treated as presumptive negative and a new specimen should be tested with alternative PCR molecular test. Invalid: Please collect a new specimen for repeat patient testing if clinically indicated. Lab Interpretation Normal (test code = 92278-4) [facility]2020-11-26 15:47:57 Test Item Value Reference Range Interpretation Comments SARS-CoV-2 Rapid ID NOW Not Detected Not Detected (test code = 62370-0) ALEC (test code = ALEC) ID NOW COVID-19 Assay is an isothermal nucleic acid amplification test intended for the qualitative detection of nucleic acid from SARS-CoV-2 viral RNA in nasopharyngeal (CASINO CASHIER) specimens. It is used under Emergency Use Authorization (EUA) by FDA. The limit of detection (LOD) of the assay is 125 Genome Equivalents/mL. A positive result is indicative of the presence of SARS-CoV-2 RNA. ?Clinical correlation with patient history and other diagnostic information is necessary to determine patient infection status. A negative (Not Detected) result does not preclude SARS-CoV-2 infection. In patients with clinical symptoms and other tests that are consistent with SARS-CoV-2 infection, negative results should be treated as presumptive negative and a new specimen should be tested with alternative PCR molecular test. Invalid: Please collect a new specimen for repeat patient testing if clinically indicated. Lab Interpretation Normal (test code = 57569-0) [facility] WITH [id number] 15:32:36 Test Item Value Reference Range Interpretation Comments WBC (test code = See_Comment H [Automated 6690-2) message] The system which generated this result transmit sg reference range : 4.20 - 10.70 10*3/?L. The reference range was not used to interpret this result as normal/abnormal . RBC (test code = See_Comment [Automated 789-8) message] The system which generated this result transmit sg reference range : 4.26 - 5.52 10*6/?L. The reference range was not used to interpret this result as normal/abnormal . HGB (test code = 13.9 g/dL 12.2-16.4 718-7) HCT (test code = 43.9 % 38.4-49.3 4544-3) MCV (test code = 85.6 fL 81.7-95.6 787-2) MCH (test code = 27.1 pg 26.1-32.7 785-6) MCHC (test code = 31.7 g/dL 31.2-35.0 786-4) RDW-SD (test code = 42.5 fL 38.5-51.6 62454-4) RDW-CV (test code = 13.6 % 12.1-15.4 788-0) PLT (test code = See_Comment [Automated 777-3) message] The system which generated this result transmit sg reference range : 150 - 328 10*3/ ?L. The reference range was not u sed to interpret th is result as normal/abnormal . MPV (test code = 11.7 fL 9.8-13.0 10689-9) NRBC/100 WBC (test See_Comment [Automat ed code = [id number]) message] The system which generated this result transmit sg reference range : 0.0 - 10.0 /100 WBCs. The reference range was not used to interpret this result as normal/abnormal . NRBC x10^3 (test code <0.01 See_Comment [Auto mated = [id number]) message] The system which generated this result transmit sg reference range : 10*3/?L. The reference range was not used to interpret this result as normal/abnormal . GRAN MAT (NEUT) % 75.7 % (test code = 770-8) IMM GRAN % (test code 0.60 % = 5865482661) LYMPH % (test code = 12.6 % 736-9) MONO % (test code = 9.7 % 5905-5) EOS % (test code = 1.0 % 713-8) BASO % (test code = 0.4 % 706-2) GRAN MAT x10^3(ANC) 10.30 10*3/uL 1.99-6.95 H (test code = 5175829362) IMM GRAN x10^3 (test 0.08 10*3/uL 0.00-0.06 H code = 0719036778) LYMPH x10^3 (test code 1.71 10*3/uL 1.09-3.23 = 731-0) MONO x10^3 (test code 1.32 10*3/uL 0.36-1.02 H = 742-7) EOS x10^3 (test code = 0.14 10*3/uL 0.06-0.53 711-2) BASO x10^3 (test code 0.06 10*3/uL 0.01-0.09 = 704-7) Lab Interpretation Abnormal (test code = 96568-1) [facility] WITH [id number] 15:32:36 Test Item Value Reference Range Interpretation Comments WBC (test code = See_Comment H [Automated 9390-2) message] The system which generated this result transmit sg reference range : 4.20 - 10.70 10*3/?L. The reference range was not used to interpret this result as normal/abnormal . RBC (test code = See_Comment [Automated 899-8) message] The system which generated this result transmit sg reference range : 4.26 - 5.52 10*6/?L. The reference range was not used to interpret this result as normal/abnormal . HGB (test code = 13.9 g/dL 12.2-16.4 718-7) HCT (test code = 43.9 % 38.4-49.3 4544-3) MCV (test code = 85.6 fL 81.7-95.6 787-2) MCH (test code = 27.1 pg 26.1-32.7 785-6) MCHC (test code = 31.7 g/dL 31.2-35.0 786-4) RDW-SD (test code = 42.5 fL 38.5-51.6 90416-7) RDW-CV (test code = 13.6 % 12.1-15.4 788-0) PLT (test code = See_Comment [Automated 777-3) message] The system which generated this result transmit sg reference range : 150 - 328 10*3/ ?L. The reference range was not u sed to interpret th is result as normal/abnormal . MPV (test code = 11.7 fL 9.8-13.0 37811-8) NRBC/100 WBC (test See_Comment [Automat ed code = 0483276020) message] The system which generated this result transmit sg reference range : 0.0 - 10.0 /100 WBCs. The reference range was not used to interpret this result as normal/abnormal . NRBC x10^3 (test code <0.01 See_Comment [Auto mated = 1825253388) message] The system which generated this result transmit sg reference range : 10*3/?L. The reference range was not used to interpret this result as normal/abnormal . GRAN MAT (NEUT) % 75.7 % (test code = 770-8) IMM GRAN % (test code 0.60 % = 1692550208) LYMPH % (test code = 12.6 % 736-9) MONO % (test code = 9.7 % 5905-5) EOS % (test code = 1.0 % 713-8) BASO % (test code = 0.4 % 706-2) GRAN MAT x10^3(ANC) 10.30 10*3/uL 1.99-6.95 H (test code = 0385144499) IMM GRAN x10^3 (test 0.08 10*3/uL 0.00-0.06 H code = 5028248187) LYMPH x10^3 (test code 1.71 10*3/uL 1.09-3.23 = 731-0) MONO x10^3 (test code 1.32 10*3/uL 0.36-1.02 H = 742-7) EOS x10^3 (test code = 0.14 10*3/uL 0.06-0.53 711-2) BASO x10^3 (test code 0.06 10*3/uL 0.01-0.09 = 704-7) Lab Interpretation Abnormal (test code = 68102-8) [facility] WITH [id number] 15:32:36 Test Item Value Reference Range Interpretation Comments WBC (test code = See_Comment H [Automated 6690-2) message] The system which generated this result transmit sg reference range : 4.20 - 10.70 10*3/?L. The reference range was not used to interpret this result as normal/abnormal . RBC (test code = See_Comment [Automated 789-8) message] The system which generated this result transmit sg reference range : 4.26 - 5.52 10*6/?L. The reference range was not used to interpret this result as normal/abnormal . HGB (test code = 13.9 g/dL 12.2-16.4 718-7) HCT (test code = 43.9 % 38.4-49.3 4544-3) MCV (test code = 85.6 fL 81.7-95.6 787-2) MCH (test code = 27.1 pg 26.1-32.7 785-6) MCHC (test code = 31.7 g/dL 31.2-35.0 786-4) RDW-SD (test code = 42.5 fL 38.5-51.6 33093-1) RDW-CV (test code = 13.6 % 12.1-15.4 788-0) PLT (test code = See_Comment [Automated 777-3) message] The system which generated this result transmit sg reference range : 150 - 328 10*3/ ?L. The reference range was not u sed to interpret th is result as normal/abnormal . MPV (test code = 11.7 fL 9.8-13.0 07549-2) NRBC/100 WBC (test See_Comment [Automat ed code = 0770934080) message] The system which generated this result transmit sg reference range : 0.0 - 10.0 /100 WBCs. The reference range was not used to interpret this result as normal/abnormal . NRBC x10^3 (test code <0.01 See_Comment [Auto mated = 9151175727) message] The system which generated this result transmit sg reference range : 10*3/?L. The reference range was not used to interpret this result as normal/abnormal . GRAN MAT (NEUT) % 75.7 % (test code = 770-8) IMM GRAN % (test code 0.60 % = 3557867344) LYMPH % (test code = 12.6 % 736-9) MONO % (test code = 9.7 % 5905-5) EOS % (test code = 1.0 % 713-8) BASO % (test code = 0.4 % 706-2) GRAN MAT x10^3(ANC) 10.30 10*3/uL 1.99-6.95 H (test code = 0250965787) IMM GRAN x10^3 (test 0.08 10*3/uL 0.00-0.06 H code = 9351454270) LYMPH x10^3 (test code 1.71 10*3/uL 1.09-3.23 = 731-0) MONO x10^3 (test code 1.32 10*3/uL 0.36-1.02 H = 742-7) EOS x10^3 (test code = 0.14 10*3/uL 0.06-0.53 711-2) BASO x10^3 (test code 0.06 10*3/uL 0.01-0.09 = 704-7) Lab Interpretation Abnormal (test code = 55185-1) [facility] URINALYSIS, [id number] 20:50:00 Test Item Value Reference Range Interpretation Comments POCT U SP GRAV (test code = 1.015 mg/dl 1.005-1.025 3255) POCT PH U (test code = 3254) 5.5 mg/dl 5-8 POCT U LEUK EST (test code = Negative Negative - Negative 3263) POCT U NIT (test code = 3262) Negative Negative - Negative POCT U PROT (test code = Negative Negative - Negative 3259) POCT U GLU (test code = 3256) Negative Negative - Negative POCT U KETONE (test code = Negative Negative - Negative 3258) POCT U UROBILI (test code = 0.2 mg/dl 0.2-1 3260) POCT U BILI (test code = Negative Negative - Negative 3261) POCT U BLD (test code = 3257) Negative Negative - Negative POCT U COLOR (test code = yellow 3266) POCT U APPEAR (test code = clear 3267) Lab Interpretation (test code Normal = 30996-9) [facility] [id number] 20:50:00 Test Item Value Reference Range Interpretation Comments POCT U SP GRAV (test code = 1.015 mg/dl 1.005-1.025 3255) POCT PH U (test code = 3254) 5.5 mg/dl 5-8 POCT U LEUK EST (test code = Negative Negative - Negative 3263) POCT U NIT (test code = 3262) Negative Negative - Negative POCT U PROT (test code = Negative Negative - Negative 3259) POCT U GLU (test code = 3256) Negative Negative - Negative POCT U KETONE (test code = Negative Negative - Negative 3258) POCT U UROBILI (test code = 0.2 mg/dl 0.2-1 3260) POCT U BILI (test code = Negative Negative - Negative 3261) POCT U BLD (test code = 3257) Negative Negative - Negative POCT U COLOR (test code = yellow 3266) POCT U APPEAR (test code = clear 3267) Lab Interpretation (test code Normal = 59825-7) [facility] URINALYSIS, [id number] 20:50:00 Test Item Value Reference Range Interpretation Comments POCT U SP GRAV (test code = 1.015 mg/dl 1.005-1.025 3255) POCT PH U (test code = 3254) 5.5 mg/dl 5-8 POCT U LEUK EST (test code = Negative Negative - Negative 3263) POCT U NIT (test code = 3262) Negative Negative - Negative POCT U PROT (test code = Negative Negative - Negative 3259) POCT U GLU (test code = 3256) Negative Negative - Negative POCT U KETONE (test code = Negative Negative - Negative 3258) POCT U UROBILI (test code = 0.2 mg/dl 0.2-1 3260) POCT U BILI (test code = Negative Negative - Negative 3261) POCT U BLD (test code = 3257) Negative Negative - Negative POCT U COLOR (test code = yellow 3266) POCT U APPEAR (test code = clear 3267) Lab Interpretation (test code Normal = 81955-5) [facility] WITH [id number] 15:31:00 Test Item Value Reference Range Interpretation Comments WBC (test code = See_Comment H [Automated 6690-2) message] The system which generated this result transmit sg reference range : 4.20 - 10.70 10*3/?L. The reference range was not used to interpret this result as normal/abnormal . RBC (test code = See_Comment [Automated 789-8) message] The system which generated this result transmit sg reference range : 4.26 - 5.52 10*6/?L. The reference range was not used to interpret this result as normal/abnormal . HGB (test code = 15.0 g/dL 12.2-16.4 718-7) HCT (test code = 46.5 % 38.4-49.3 4544-3) MCV (test code = 86.9 fL 81.7-95.6 787-2) MCH (test code = 28.0 pg 26.1-32.7 785-6) MCHC (test code = 32.3 g/dL 31.2-35 786-4) RDW-SD (test code = 46.5 fL 38.5-51.6 45252-2) RDW-CV (test code = 14.6 % 12.1-15.4 788-0) PLT (test code = See_Comment [Automated 777-3) message] The system which generated this result transmit sg reference range : 150 - 328 10*3/ ?L. The reference range was not u sed to interpret th is result as normal/abnormal . MPV (test code = 10.8 fL 9.8-13 47732-7) NRBC/100 WBC (test See_Comment [Automat ed code = 6053538947) message] The system which generated this result transmit sg reference range : 0.0 - 10.0 /100 WBCs. The reference range was not used to interpret this result as normal/abnormal . NRBC x10^3 (test code <0.01 See_Comment [Auto mated = [id number]) message] The system which generated this result transmit sg reference range : 10*3/?L. The reference range was not used to interpret this result as normal/abnormal . GRAN MAT (NEUT) % 76.2 % (test code = 770-8) IMM GRAN % (test code 0.40 % = 7993895424) LYMPH % (test code = 12.6 % 736-9) MONO % (test code = 8.3 % 5905-5) EOS % (test code = 2.1 % 713-8) BASO % (test code = 0.4 % 706-2) GRAN MAT x10^3(ANC) 10.98 10*3/uL 1.99-6.95 H (test code = 5143961811) IMM GRAN x10^3 (test 0.06 10*3/uL 0-0.06 code = 1217705870) LYMPH x10^3 (test code 1.81 10*3/uL 1.09-3.23 = 731-0) MONO x10^3 (test code 1.20 10*3/uL 0.36-1.02 H = 742-7) EOS x10^3 (test code = 0.31 10*3/uL 0.06-0.53 711-2) BASO x10^3 (test code 0.06 10*3/uL 0.01-0.09 = 704-7) Lab Interpretation Abnormal (test code = 56245-7) [facility]
[2021-07-22 00:03] LABS: Absolute Lymphocytes (CBC) 0.6 K/uL (0.7-4.9); Hematocrit 43.5 % (39.6-49.0); Lymphocytes % 12.7 % (15.3-44.8); MPV 8.9 fL (7.6-11.3); RBC Red Blood Cell Count 5.32 M/uL (4.33-5.43)
[2021-07-22 00:07] LABS: Protime INR 1.05
[2021-07-22 00:47] LABS: ALT/SGPT 25 U/L (12-78); AST/SGOT 14 U/L (15-37); Albumin 3.3 g/dL (3.4-5.0); Alkaline Phosphatase 76 U/L (45-117); BUN Blood Urea Nitrogen 10 mg/dL (7-18); Bicarbonate 28 mmol/L (21-32); Bilirubin Direct < 0.1 mg/dL (0-0.2); Bilirubin Total 0.3 mg/dL (0.2-1.0); Glucose Level 135 mg/dL (74-106); Magnesium 2.4 mg/dL (1.8-2.4); NT PRO-BNP 448 pg/mL (<125); Potassium 3.7 mmol/L (3.5-5.1); Protein, Total 7.7 g/dL (6.4-8.2); Sodium Level 130 mmol/L (136-145); Troponin (Emerg Dept Use Only) < 0.02 ng/mL (0.0-0.045)
[2021-07-22 03:15] LABS: Barbiturates NEGATIVE (NEGATIVE); Benzodiazepines NEGATIVE (NEGATIVE); Cocaine NEGATIVE (NEGATIVE); METHAMPHETAM NEGATIVE (NEGATIVE); Methadone NEGATIVE (NEGATIVE); Opiates NEGATIVE (NEGATIVE); Phencyclidine NEGATIVE (NEGATIVE); THC Cannibis NEGATIVE (NEGATIVE)
--- NOTE | 2021-07-22 03:20 | ER ---
Nurse's Notes [facility] Name: Lauri Redmond Age: 45 yrs Sex: Male : 1975 Arrival Date: 07/21/2021 Time: 17:56 Bed 10 Private MD: Diagnosis: Chest pain, unspecified Presentation: 07/21 18:12 Chief complaint: Patient states: chest pain x4days. Coronavirus screen: Vaccine status: hoffman Patient reports being unvaccinated. Ebola Screen: Patient denies travel to an Ebola-affected area in the 21 days before illness onset. Initial Sepsis Screen: Does the patient meet any 2 criteria? No. Patient's initial sepsis screen is negative. Does the patient have a suspected source of infection? No. Patient's initial sepsis screen is negative. Risk Assessment: Do you want to hurt yourself or someone else? Patient reports no desire to harm self or others. Onset of symptoms was July 18, 2021. 18:12 Method Of Arrival: EMS: [facility] 18:12 Acuity: NORMA 3 hoffman Triage Assessment: 18:15 General: Appears in no apparent distress. Behavior is calm, cooperative. Pain: hoffman Complains of pain in chest. Historical: - Allergies: 18:15 Hydrocodone-Acetaminophen; hoffman 18:15 Lortab; hoffman 18:15 Tylenol; hoffman 18:15 Vicodin; hoffman 18:15 "basically any generic thing for pain"; hoffman - Home Meds: 18:15 hydrocodone-acetaminophen 7.5-325 mg Oral tab 1 tab every 4 hours [Active]; hoffman lisinopril-hydrochlorothiazide Oral [Active]; Metoprolol Tartrate Oral [Active]; Naproxen Oral [Active]; Prednisone Oral [Active]; - PMHx: 18:15 Back pain; Hypertension; hoffman - Immunization history:: Adult Immunizations not up to date. - Social history:: Smoking status: Patient reports the use of cigarette tobacco products, smokes one pack cigarettes per day. Screenin:30 Abuse screen: Denies threats or abuse. Nutritional screening: No deficits noted. bb Tuberculosis screening: No symptoms or risk factors identified. Fall Risk None identified. Assessment: 23:30 General: Appears in no apparent distress. Behavior is calm, cooperative. Neuro: Level bb of Consciousness is awake, alert, obeys commands, Oriented to person, place, time, situation. Cardiovascular: Capillary refill < 3 seconds Patient's skin is warm and dry. Respiratory: Respiratory effort is even, unlabored, Respiratory pattern is regular. GI: No signs and/or symptoms were reported involving the gastrointestinal system. Derm: Skin is pink, warm \\T\\ dry. Musculoskeletal: Circulation, motion, and sensation intact. 07/22 02:56 Reassessment: Patient is alert, oriented x 3, equal unlabored respirations, skin bb warm/dry/pink. pt awaiting diagnostic results. 04:58 Reassessment: Patient is alert, oriented x 3, equal unlabored respirations, skin bb warm/dry/pink. pt c/o his headache, chills not addressed covid, flu swab sent. Pt verbalized understanding of and agrees to plan of care discharge instructions given pt ambulated with steady gait to exit will call for results. Vital Signs: 07/21 18:12 BP 148 / 91; Pulse 98; Resp 18; Temp 98.9(O); Pulse Ox 96% on R/A; Weight 90.72 kg; hoffman Height 5 ft. 11 in. (180.34 cm) (R); 07/22 01:46 BP 145 / 60; Pulse 98; Resp 19; Temp 99.4; Pulse Ox 98% ; bb 02:56 BP 147 / 100; Pulse 96; Resp 16 S; Temp 99.4(O); Pulse Ox 94% on R/A; bb 04:59 BP 144 / 96; Pulse 91; Resp 16 S; Temp 98.6(O); Pulse Ox 93% on R/A; bb 07/21 18:12 Body Mass Index 27.89 (90.72 kg, 180.34 cm) ED Course: 07/21 17:56 Patient arrived in ED. am2 18:15 Triage completed. hoffman 18:15 Arm band placed on Patient placed. hoffman 23:29 Romel Ramos NP is PHCP. pm1 23:29 Miki Gayle MD is Attending Physician. pm1 23:30 Patient has correct armband on for positive identification. Bed in low position. Call bb light in reach. 23:30 No provider procedures requiring assistance completed. bb 23:49 XRAY Chest (1 view) In Process Unspecified. EDMS 07/22 02:54 Repeat lab(s) drawn. by me, sent to lab. ignacio 05:02 IV discontinued, intact, bleeding controlled, No redness/swelling at site. Pressure bb dressing applied. Administered Medications: No medications were administered Outcome: 03:20 Discharge ordered by . pm1 05:01 Discharged to home ambulatory. ignacio 05:01 Condition: stable 05:01 Discharge instructions given to patient, Instructed on discharge instructions, follow up and referral plans. Demonstrated understanding of instructions, follow-up care. 05:03 Patient left the ED. bb Signatures: Dispatcher [employer] EDMS Odessa Savage RN RN Romel Krishnan, DIRECTOR [employer]OR [employer] pm1 Grace Peoples am2 Lisa-Lisa Sanchez RN RN hoffman
--- NOTE | 2021-07-22 03:20 | EDPHYS ---
Physician Documentation [facility] Name: Lauri Redmond Age: 45 yrs Sex: Male : 1975 Arrival Date: 07/21/2021 Time: 17:56 Bed 10 Private MD: ED Physician Miki Gayle HPI: 07/21 23:38 This 45 yrs old Male presents to ER via EMS with complaints of chest discomfort. pm1 23:38 The patient or guardian reports chest pain that is located primarily in the xiphoid pm1 area. Onset: 4 day(s) ago. The pain does not radiate. Associated signs and symptoms: Pertinent negatives: abdominal pain, cough, nausea, shortness of breath, vomiting. The chest pain is described as sharp. Duration: The patient or guardian reports a single episode, that is now resolved. Modifying factors: The symptoms are alleviated by nothing. the symptoms are aggravated by nothing. Severity of pain: in the emergency department the pain has resolved. The patient has not experienced similar symptoms in the past. The patient has not recently seen a physician. Historical: - Allergies: 18:15 Hydrocodone-Acetaminophen; hoffman 18:15 Lortab; hoffman 18:15 Tylenol; hoffman 18:15 Vicodin; hoffman 18:15 "basically any generic thing for pain"; hoffman - Home Meds: 18:15 hydrocodone-acetaminophen 7.5-325 mg Oral tab 1 tab every 4 hours [Active]; hoffman lisinopril-hydrochlorothiazide Oral [Active]; Metoprolol Tartrate Oral [Active]; Naproxen Oral [Active]; Prednisone Oral [Active]; - PMHx: 18:15 Back pain; Hypertension; hoffman - Immunization history:: Adult Immunizations not up to date. - Social history:: Smoking status: Patient reports the use of cigarette tobacco products, smokes one pack cigarettes per day. ROS: 23:38 Constitutional: Negative for fever, chills, and weight loss. pm1 23:38 Respiratory: Negative for shortness of breath, cough, wheezing, and pleuritic chest pain, Abdomen/GI: Negative for abdominal pain, nausea, vomiting, diarrhea, and constipation, Back: Negative for injury and pain, MS/Extremity: Negative for injury and deformity, Skin: Negative for injury, rash, and discoloration, Neuro: Negative for headache, weakness, numbness, tingling, and seizure. 23:38 Cardiovascular: Positive for chest pain, Negative for edema, palpitations. 23:38 All other systems are negative. Exam: 23:38 Constitutional: This is a well developed, well nourished patient who is awake, alert, pm1 and in no acute distress. Head/Face: Normocephalic, atraumatic. 23:38 Back: No spinal tenderness. No costovertebral tenderness. Full range of motion. Skin: Warm, dry with normal turgor. Normal color with no rashes, no lesions, and no evidence of cellulitis. MS/ Extremity: Pulses equal, no cyanosis. Neurovascular intact. Full, normal range of motion. 23:38 Chest/axilla: Palpation: tenderness, that is mild, of the xiphoid area, that totally reproduces the patient's complaints. 23:38 Cardiovascular: Exam negative for acute changes, Rate: normal, Rhythm: regular, Pulses: no pulse deficits are appreciated, Heart sounds: normal, normal S1and S2. 23:38 Respiratory: Exam negative for acute changes, respiratory distress, shortness of breath, Breath sounds: are clear throughout. 23:38 Abdomen/GI: Exam negative for acute changes, Inspection: abdomen appears normal, Palpation: abdomen is soft and non-tender, in all quadrants. 23:38 Neuro: Exam negative for acute changes, Orientation: is normal, Mentation: is normal, Motor: is normal, moves all fours. Vital Signs: 18:12 BP 148 / 91; Pulse 98; Resp 18; Temp 98.9(O); Pulse Ox 96% on R/A; Weight 90.72 kg; hoffman Height 5 ft. 11 in. (180.34 cm) (R); 07/22 01:46 BP 145 / 60; Pulse 98; Resp 19; Temp 99.4; Pulse Ox 98% ; bb 02:56 BP 147 / 100; Pulse 96; Resp 16 S; Temp 99.4(O); Pulse Ox 94% on R/A; bb 04:59 BP 144 / 96; Pulse 91; Resp 16 S; Temp 98.6(O); Pulse Ox 93% on R/A; bb 07/21 18:12 Body Mass Index 27.89 (90.72 kg, 180.34 cm) hoffman MDM: 07/21 23:34 Patient medically screened. pm1 07/22 03:19 Data reviewed: vital signs. pm1 03:19 Counseling: I had a detailed discussion with the patient and/or guardian regarding: the pm1 historical points, exam findings, and any diagnostic results supporting the discharge/admit diagnosis, lab results, radiology results, the need for outpatient follow up, to return to the emergency department if symptoms worsen or persist or if there are any questions or concerns that arise at home. 07/21 23:37 Order name: Basic Metabolic Panel; Complete Time: 00:58 pm1 07/21 23:37 Order name: CBC with Diff; Complete Time: 00:08 pm1 07/21 23:37 Order name: LFT's; Complete Time: 00:58 pm1 07/21 23:37 Order name: Magnesium; Complete Time: 00:58 pm1 07/21 23:37 Order name: NT PRO-BNP; Complete Time: 00:58 pm1 07/21 23:37 Order name: PT-INR; Complete Time: 00:08 pm1 07/21 23:37 Order name: Troponin (emerg Dept Use Only); Complete Time: 00:58 pm1 07/21 23:37 Order name: XRAY Chest (1 view) pm1 07/21 23:37 Order name: EKG; Complete Time: 23:38 pm1 07/21 23:43 Order name: ETOH Level; Complete Time: 00:16 pm1 07/21 23:43 Order name: UDS; Complete Time: 03:16 pm1 07/22 02:00 Order name: Troponin (emerg Dept Use Only); Complete Time: 03:19 pm1 07/22 04:56 Order name: COVID-19/FLU A+B (Document "Date of Onset" if Symptomatic) bb 07/21 23:37 Order name: EKG - Nurse/Tech; Complete Time: 23:55 pm1 07/21 23:37 Order name: IV Saline Lock; Complete Time: 23:55 pm1 07/21 23:37 Order name: Labs collected and sent; Complete Time: 23:55 pm1 07/21 23:37 Order name: O2 Per Protocol; Complete Time: 23:55 pm1 07/21 23:37 Order name: O2 Sat Monitoring; Complete Time: 23:54 pm1 07/21 23:43 Order name: Urine Dipstick-Ancillary (obtain specimen); Complete Time: 02:53 pm1 Administered Medications: No medications were administered Disposition: 06:16 Co-signature as Attending Physician, Miki Gayle MD. [email or web address] Disposition Summary: 07/22/21 03:20 Discharge Ordered Location: Home pm1 Problem: new pm1 Symptoms: have improved pm1 Condition: Stable pm1 Diagnosis - Chest pain, unspecified pm1 Followup: pm1 - With: Emergency Department - When: As needed - Reason: Worsening of condition Followup: pm1 - With: Private Physician - When: 2 - 3 days - Reason: Recheck today's complaints, Continuance of care, Re-evaluation by your physician Discharge Instructions: - Discharge Summary Sheet pm1 - Nonspecific Chest Pain, Adult pm1 Forms: - Medication Reconciliation Form pm1 - Thank You Letter pm1 - Antibiotic Education pm1 - Prescription Opioid Use pm1 Signatures: Dispatcher [employer] EDMS Romel Ramos, [employer] pm1 Miki Gayle MD MD [email or web address] Lisa Mccarty, RN RN hoffman
[2021-07-22 05:13] VITALS: BP 144/96; TEMP 98.6; O2SAT 93
[2021-07-22 06:18] LABS: SARS-COV-2 RT PCR POSITIVE (NEGATIVE)
--- NOTE | 2021-07-22 08:00 | RAD REPORT ---
EXAM DESCRIPTION: Gordon Single View07/21/2021 11:49 pm CLINICAL HISTORY: Chest pain COMPARISON: 2019 FINDINGS: Lungs are hyperaerated. Calcified granulomas are present within the lungs. The lungs appear clear of acute infiltrate. The heart is normal size IMPRESSION: No acute abnormalities displayed
== END 2021-07-22 05:03 | disposition home or self-care (01) ==
LOC: ER 17:55
DX: R07.9 Chest pain, unspecified (principal); Z88.6 Allergy status to analgesic agent; I10 Essential (primary) hypertension
CPT/HCPCS: 93005; 85025; 80048; 36415 ×2; 80320; 83735; 85610; 80076; 84484 ×2; 83880; 0240U; 80307; 71045; 99284

== ENCOUNTER 2023-04-29 01:58 | Emergency (ER) | payer OTHER ==
--- OUTSIDE RECORDS SUMMARY | 2023-04-29 02:06 | XMS REPORT | Continuity of Care Document ---
:1975 Author Organization [facility] t Address [address] [facility] [place] [address] Care Team Providers Name Role Phone Robbie Dior MD Primary Care Physician BRICE GELLER Attending Clinician Unavailable Robbie Dior MD Attending Clinician Betty Castellon MD Attending Clinician ROBBIE DIOR Attending Clinician Unavailable Only, Adc Test Attending Clinician Unavailable Brice Geller MD Attending Clinician Doctor Unassigned, [place] Attending Clinician Unavailable Pob, [facility] Lab Main Attending Clinician Unavailable RICHAR MCKEON Attending Clinician Unavailable Gwendolyn Gandhi MD Attending Clinician GWENDOLYN GANDHI Attending Clinician Unavailable 2, [facility] Lab Attending Clinician Unavailable Pc, Ad[facility] Echo Room 1 - Attending Clinician Unavailable Sivakumar Luevano MD Attending Clinician SIVAKUMAR LUEVANO Attending Clinician Unavailable SHARON MAYA Attending Clinician Unavailable Lab, Adc Fam Pob I Attending Clinician Unavailable Sharon Alston Attending Clinician BETTY CASTELLON Attending Clinician Unavailable Pob1, Acute Care Clinic Attending Clinician Unavailable BRICE GELLER Admitting Clinician Unavailable Brice Geller MD Admitting Clinician Payers Payer Name Policy Type Policy Number Effective Date Expiration Date Richardson chavez FORMERLY [facility] [id number] 2018 00:00:00 PLUS Problems Condition Condition Condition Status Onset Resolution Last Treating Co mments Source Name Details Category Date Date Treatment Clinician Date Irritabili Irritabili Disease Active U nivers ty and ty and 11-17 ity of anger anger 00:00: [place] [facility] Anxiety, Anxiety, Disease Active Unive rs generalize generalize 11-17 it y of d d 00:00: [place] [facility] 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 Erectile Erectile Disease Active Unive rs dysfunctio dysfunctio 03-23 it y of n, n, 00:00: [place] unspecifie unspecifie 00 Me dical d erectile d erectile Br anch dysfunctio dysfunctio n type n type Bilateral Bilateral Disease Active Uni vers leg pain leg pain 03-23 ity of 00:00: [place] [facility] Erectile Erectile Disease Active Unive rs dysfunctio dysfunctio 03-23 it y of n, n, 00:00: [place] unspecifie unspecifie 00 Me dical d erectile d erectile Br anch dysfunctio dysfunctio n type n type Dizziness Dizziness Disease Active Uni vers 7- ity of 00:: [place] [facility] Intermitte Intermitte Disease Active U nivers nt chest nt chest 02-18 ity of pain pain 00:00: [place] [facility] Hypertensi Hypertensi Disease Active U nivers ve urgency ve urgency 11-12 it y of 00:00: [place] [facility] Suspected Suspected Disease Active Uni vers COVID-19 COVID-19 11-12 ity of virus virus 00:00: [place] infection infection 00 [facility] Branch Cigarette Cigarette Disease Active Uni vers nicotine nicotine 11-12 ity of dependence [place] without without 00 Medical complicati complicati Br anch on on Cough Cough Disease Active Univers 11-12 ity of 00:00: [place] 00 Medical Branch Diarrhea, Diarrhea, Disease Active Uni vers unspecifie unspecifie 11-12 it y of d type d type 00:00: [place] [facility] Other Other Disease Active Univers headache headache 11-12 ity of syndrome syndrome 00:00: [place] 00 [facility] Branch Tobacco Tobacco Disease Active Univers dependence dependence 11-12 it y of 00:00: [place] [facility] Branch Anesthesia Anesthesia Disease Active Overview : Univers complicati complicati Formattin ity of on on g of this [place] note Medical might be Branch different from the original. Pt states he wakes up aggressiv e Hypertensi Hypertensi Disease Active U nivers on on ity of [facility] Chronic Chronic Disease Active Univers neck and neck and ity of back pain back pain [facility] Acid Acid Disease Active Univers reflux reflux ity of [facility] Allergies, Adverse Reactions, Alerts Allergy Allergy Status [...] Start Date Stop Date Quantity Comments Source Exposure to Not sure [facility] SARS-CoV-2 (event) [facility] Branch History of tobacco Cigarette Smoker University of use [facility] Branch History [facility] o f Alcohol Frequency [facility] edical Branch History [facility] University o f Alcohol Std Drinks [facility] History [facility] o f Alcohol Binge [facility] al Branch Alcohol intake 2020-12-10 2020-12-10 Current drinker Unive rsity of 00:00:00 00:00:00 of alcohol [facility] (finding) Branch Cigarettes smoked 2016-12-07 2016-12-07 Univers ity of current (pack per 00:00:00 00:00:00 [facility] ) - Reported Branch Tobacco use and 2016-12-07 2016-12-07 Smokeless tobacco Un iversity of exposure 00:00:00 00:00:00 non-user [facility] Alcohol Comment 2016-12-07 2016-12-07 Occasional Universit y of 00:00:00 00:00:00 Drinker [facility] Sex [birth year] Universit y of 00:00:00 00:00:00 [facility] Smoking Status Start Date Stop Date Source Smokes tobacco daily 2016-12-07 00:00:00 [place] [facility] ity of [facility] Medications Ordered Filled Start Stop Current Ordering Indication Dosage Frequency Signature Comments Components Source Medication Medication Date Date Medication? Clinician (SIG) Name Name METOPROLOL Yes [id number] TAKE 1 U nivers SUCCINATE 2-22 TABLET BY ity o f XL 25 mg 24 00:00: MOUTH [place] hr tablet 00 EVERY DAY Medic al Branch OMEPRAZOLE Yes [id number] TAKE 1 Univers 40 mg 2-22 CAPSULE BY ity of capsule 00:00: MOUTH [place] 00 EVERY DAY Medical Branch LOSARTAN-HY 2021-0 Yes [id number] TAKE 1 Univers DROCHLOROTH 2-22 TABLET BY ity of IAZIDE 00:00: MOUTH [place] 100-25 mg 00 EVERY DAY Medic al per tablet Branch METOPROLOL Yes [id number] TAKE 1 U nivers SUCCINATE 2-22 TABLET BY ity o f XL 25 mg 24 00:00: MOUTH [place] hr tablet 00 EVERY DAY Medic al Branch OMEPRAZOLE 0 Yes [id number] TAKE 1 Univers 40 mg 2-22 CAPSULE BY ity of capsule 00:00: MOUTH [place] 00 EVERY DAY Medical Branch LOSARTAN-HY 2021-0 Yes [id number] TAKE 1 Univers DROCHLOROTH 2-22 TABLET BY ity of IAZIDE 00:00: MOUTH [place] 100-25 mg 00 EVERY DAY Medic al per tablet Branch METOPROLOL Yes [id number] TAKE 1 U nivers SUCCINATE 2-22 TABLET BY ity o f XL 25 mg 24 00:00: MOUTH [place] hr tablet 00 EVERY DAY Medic al Branch OMEPRAZOLE Yes [id number] TAKE 1 Univers 40 mg 2-22 CAPSULE BY ity of capsule 00:00: MOUTH [place] 00 EVERY DAY Medical Branch LOSARTAN-HY 2021-0 Yes [id number] TAKE 1 Univers DROCHLOROTH 2-22 TABLET BY ity of IAZIDE 00:00: MOUTH [place] 100-25 mg 00 EVERY DAY Medic al per tablet Branch METOPROLOL 2021-0 Yes [id number] TAKE 1 U nivers SUCCINATE 2-22 TABLET BY ity o f XL 25 mg 24 00:00: MOUTH [place] hr tablet 00 EVERY DAY Medic al Branch OMEPRAZOLE 2021-0 Yes [id number] TAKE 1 Univers 40 mg 2-22 CAPSULE BY ity of capsule 00:00: MOUTH [place] 00 EVERY DAY Medical Branch LOSARTAN-HY 2021-0 Yes [id number] TAKE 1 Univers DROCHLOROTH 2-22 TABLET BY ity of IAZIDE 00:00: MOUTH [place] 100-25 mg 00 EVERY DAY Medic al per tablet Branch METOPROLOL 0 Yes [id number] TAKE 1 U nivers SUCCINATE 2-22 TABLET BY ity o f XL 25 mg 24 00:00: MOUTH [place] hr tablet 00 EVERY DAY Medic al Branch OMEPRAZOLE 0 Yes [id number] TAKE 1 Univers 40 mg 2-22 CAPSULE BY ity of capsule 00:00: MOUTH [place] 00 EVERY DAY Medical Branch LOSARTAN-HY 2021-0 Yes [id number] TAKE 1 Univers DROCHLOROTH 2-22 TABLET BY ity of IAZIDE 00:00: MOUTH [place] 100-25 mg 00 EVERY DAY Medic al per tablet Branch OMEPRAZOLE 2021-0 Yes [id number] TAKE 1 Univers 40 mg 2-10 CAPSULE BY ity of capsule 00:00: MOUTH [place] 00 EVERY DAY Medical Branch OMEPRAZOLE 2-0 2- No [id number] TAKE 1 Univers 40 mg 2-10 02-22 CAPSULE BY ity of capsule 00:00: 00:00 MOUTH [place] 00 :00 EVERY DAY Medical Branch OMEPRAZOLE 2020- Yes [id number] TAKE 1 Univers 40 mg 1-23 CAPSULE BY ity of capsule 00:00: MOUTH [place] 00 EVERY DAY Medical Branch OMEPRAZOLE 2020- Yes [id number] TAKE 1 Univers 40 mg 1-23 CAPSULE BY ity of capsule 00:00: MOUTH [place] 00 EVERY DAY Medical Branch OMEPRAZOLE 2020-1 2021- No [id number] TAKE 1 Univers 40 mg 1-23 02-10 CAPSULE BY ity of capsule 00:00: 00:00 MOUTH [place] 00 :00 EVERY DAY Medical Branch BUPROPION 2020-07 Yes [id number] 150mg TAKE 1 U nivers SR 150 mg 0-27 TABLET BY ity o f SR tablet 00:00: [facility] (TWO) Medical TIMES Branch DAILY. BUPROPION 2020-07 Yes [id number] 150mg TAKE 1 U nivers SR 150 mg 0-27 TABLET BY ity o f SR tablet 00:00: [facility] (TWO) Medical TIMES Branch DAILY. BUPROPION 2020-07 Yes [id number] 150mg TAKE 1 U nivers SR 150 mg 0-27 TABLET BY ity o f SR tablet 00:00: [facility] (TWO) Medical TIMES Branch DAILY. BUPROPION 2020-07 Yes [id number] 150mg TAKE 1 U nivers SR 150 mg 0-27 TABLET BY ity o f SR tablet 00:00: [facility] (TWO) Medical TIMES Branch DAILY. BUPROPION 2020-07 Yes [id number] 150mg TAKE 1 U nivers SR 150 mg 0-27 TABLET BY ity o f SR tablet 00:00: [facility] (TWO) Medical TIMES Branch DAILY. BUPROPION 2020-07 Yes [id number] 150mg TAKE 1 U nivers SR 150 mg 0-27 TABLET BY ity o f SR tablet 00:00: [facility] () Medical TIMES Branch DAILY. BUPROPION 2020-07 Yes [id number] 150mg TAKE 1 U nivers SR 150 mg 0-27 TABLET BY ity o f SR tablet 00:00: [facility] (TWO) Medical TIMES Branch DAILY. BUPROPION 2020-07 Yes [id number] 150mg TAKE 1 U nivers SR 150 mg 0-27 TABLET BY ity o f SR tablet 00:00: [facility] (TWO) Medical TIMES Branch DAILY. BUPROPION 2020-07 Yes [id number] 150mg TAKE 1 U nivers SR 150 mg 0-27 TABLET BY ity o f SR tablet 00:00: [facility] (TWO) Medical TIMES Branch DAILY. OMEPRAZOLE Yes [id number] TAKE 1 Univers 40 mg 8-31 CAPSULE BY ity of capsule 00:00: [facility] EVERY DAY Medical Branch OMEPRAZOLE Yes [id number] TAKE 1 Univers 40 mg 8-31 CAPSULE BY ity of capsule 00:00: MOUTH [place] [address] EVERY DAY Medical Branch OMEPRAZOLE 2020-0 Yes [id number] TAKE 1 Univers 40 mg 8-31 CAPSULE BY ity of capsule 00:00: MOUTH [place] EVERY DAY Medical Branch OMEPRAZOLE 1-0 2021- No [id number] TAKE 1 Univers 40 mg 8-31 11-23 CAPSULE BY ity of capsule 00:00: 00:00 MOUTH [place] 00 : EVERY DAY Medical Branch OMEPRAZOLE 2020-0 Yes [id number] TAKE 1 Univers 40 mg 5-28 CAPSULE BY ity of capsule 00:00: MOUTH [place] EVERY DAY Medical Branch OMEPRAZOLE 1-0 1- No [id number] TAKE 1 Univers 40 mg 5-28 08-31 CAPSULE BY ity of capsule 00:00: 00:00 MOUTH [place] 00 : EVERY DAY Medical Branch OMEPRAZOLE 2020-0 1- No [id number] TAKE 1 Univers 40 mg 5-28 08-31 CAPSULE BY ity of capsule 00:00: 00:00 MOUTH [place] 00 :00 EVERY DAY Medical Branch citalopram 0 Yes 20mg Take 20 mg U nivers 20 mg 5-10 by mouth ity of tablet 13:58: daily. Medical Branch ARIPiprazol 0 Yes 10mg Take 10 mg Univers e 10 mg 5-10 by mouth ity of tablet 13:58: daily. Medical Branch traZODone 0 Yes 50mg Take 50 mg Un re[place] 50 mg 5-10 by mouth ity of tablet 13:58: at [place] [address] bedtime. Medical Branch citalopram 0 Yes 20mg [...] by mouth ity of tablet 13:58: at [place] 00 bedtime. Medical Branch citalopram 0 Yes [...] by mouth ity of tablet 13:58: at [place] 00 bedtime. Medical Branch citalopram 2020-0 Yes [...] by mouth ity of tablet 13:58: at [place] 00 bedtime. Medical Branch citalopram 2020-0 Yes [...] by mouth ity of tablet 13:58: at [place] 00 bedtime. Medical Branch citalopram 2020-0 Yes [...] by mouth ity of tablet 13:58: at [place] 00 bedtime. Medical Branch citalopram 2020-0 Yes [...] at [place] 00 bedtime. Medical Branch citalopram 2020-0 Yes [...] by mouth ity of tablet 13:58: at [place] 00 bedtime. Medical Branch citalopram 2020-0 Yes [...] by mouth ity of tablet 13:58: at [place] 00 bedtime. Medical Branch citalopram 2020-0 Yes [...] by mouth ity of tablet 13:58: at [place] 00 bedtime. Medical Branch citalopram 2020-0 Yes 20mg Take 20 mg U nivers 20 mg 5-10 by mouth ity of tablet 13:58: daily. Medical Branch ARIPiprazol 1-0 Yes 10mg Take 10 mg Univers e 10 mg 5-10 by mouth ity of tablet 13:58: daily. Medical Branch traZODone 2020-0 Yes 50mg Take 50 mg Un renee 50 mg 5-10 by mouth ity of tablet 13:58: at [place] 00 bedtime. Medical Branch triamcinolo 2020- No PRN, Unive rs ne 11-29-10 Starting ity of acetonide 12:30: 15:58 [facility] (KENALOG) 00 :03 11/29/20 at [facility] injection 0730, Branch Until 11/29/20 at 1058, Routine, Intra-op lidocaine 2020- No PRN, Univers 1% 11-29-10 Starting ity of (XYLOCAINE) 12:30: 15:58 [facility] 10 mg/mL (1 00 :03 11/29/20 at In dical %) 0730, Branch injection Until 11/29/20 at 1058, Routine, Intra-op iohexoL 2020- No PRN, Univers (OMNIPAQUE 11-29-10 Starting ity of 300-50 mL)) 12:30: 15:58 [facility] [place] injection 00 :03 11/29/20 at [facility] ranjit 0730, Branch Until 11/29/20 at 1058, Routine, Intra-op bupivacaine 2020- No PRN, Unive rs (preserv 11-29-10 Starting ity of free) 12:30: 15:58 [facility] (SENSORCAIN 00 :03 11/29/20 at In dical E MPF) 0.25 0730, Branch % (2.5 Until Mon mg/mL) 11/29/20 at injection 1058, Routine, Intra-op lactated 2020- No 1000mL at 42 Unive rs ringers IV 5-10 05-10 mL/hr, ity of infusion 11:30: 11:40 1,000 mL, [place] 1,000 mL 00 :00 IV Medical Infusion, Branch ONCE, 1 dose, 11/29/20 at 0630, Routine, DSU Pre-op lactated 2020- No 1000mL at 42 Unive rs ringers IV 5-10 05-10 mL/hr, ity of infusion 11:30: 11:40 1,000 mL, [place] 1,000 mL 00 :00 IV Medical Infusion, Branch ONCE, 1 dose, 11/29/20 at 0630, Routine, DSU Pre-op citalopram 2021-0 Yes 20mg Take 20 mg U nivers 20 mg 5-10 by mouth ity of tablet 08:58: daily. Medical Branch ARIPiprazol 2020-0 Yes 10mg Take 10 mg Univers e 10 mg 5-10 by mouth ity of tablet 08:58: daily. Medical Branch traZODone 2020-0 Yes 50mg Take 50 mg Un renee 50 mg 5-10 by mouth ity of tablet 08:58: at [place] 00 bedtime. Medical Branch citalopram 2020-0 Yes 20mg Take 20 mg U nivers 20 mg 5-10 by mouth ity of tablet 08:58: daily. Medical Branch ARIPiprazol 2020-0 Yes 10mg Take 10 mg Univers e 10 mg 5-10 by mouth ity of tablet 08:58: daily. Medical Branch traZODone 2020-0 Yes 50mg Take 50 mg Un re[place] 50 mg 5-10 by mouth ity of tablet 08:58: at [place] 00 bedtime. Medical Branch citalopram 2020-0 Yes 20mg Take 20 mg U nivers 20 mg 5-10 by mouth ity of tablet 08:58: daily. Medical Branch ARIPiprazol 2020-0 Yes 10mg Take 10 mg Univers e 10 mg 5-10 by mouth ity of tablet 08:58: daily. Medical Branch traZODone 2020-0 Yes 50mg Take 50 mg Un renee 50 mg 5-10 by mouth ity of tablet 08:58: at [place] 00 bedtime. Medical Branch citalopram 2020-0 Yes 20mg Take 20 mg U nivers 20 mg 5-10 by mouth ity of tablet 08:58: daily. Medical Branch ARIPiprazol 2020-0 Yes 10mg Take 10 mg Univers e 10 mg 5-10 by mouth ity of tablet 08:58: daily. Medical Branch traZODone 2020-0 Yes 50mg Take 50 mg Un renee 50 mg 5-10 by mouth ity of tablet 08:58: at [place] 00 bedtime. Medical Branch citalopram 2020-0 Yes 20mg Take 20 mg U nivers 20 mg 5-10 by mouth ity of tablet 08:58: daily. Medical Branch ARIPiprazol 2020-0 Yes 10mg Take 10 mg Univers e 10 mg 5-10 by mouth ity of tablet 08:58: daily. Medical Branch traZODone 2020-0 Yes 50mg Take 50 mg Un [place] 50 mg 5-10 by mouth ity of tablet 08:58: at [place] 00 bedtime. Medical Branch citalopram 2020-0 Yes 20mg Take 20 mg U nivers 20 mg 5-10 by mouth ity of tablet 08:58: daily. Medical Branch ARIPiprazol 2020-0 Yes 10mg Take 10 mg Univers e 10 mg 5-10 by mouth ity of tablet 08:58: daily. Medical Branch traZODone 2020-0 Yes 50mg Take 50 mg Un [place] 50 mg 5-10 by mouth ity of tablet 08:58: at [place] 00 bedtime. Medical Branch citalopram 2020-0 Yes 20mg Take 20 mg U nivers 20 mg 5-10 by mouth ity of tablet 08:58: daily. Medical Branch ARIPiprazol 2020-0 Yes 10mg Take 10 mg Univers e 10 mg 5-10 by mouth ity of tablet 08:58: daily. Medical Branch traZODone 2020-0 Yes 50mg Take 50 mg Un [place] 50 mg 5-10 by mouth ity of tablet 08:58: at [place] 00 bedtime. Medical Branch citalopram 2020-0 Yes 20mg Take 20 mg U nivers 20 mg 5-10 by mouth ity of tablet 08:58: daily. Medical Branch ARIPiprazol 2020-0 Yes 10mg Take 10 mg Univers e 10 mg 5-10 by mouth ity of tablet 08:58: daily. Medical Branch traZODone 2020-0 Yes 50mg Take 50 mg Un [place] 50 mg 5-10 by mouth ity of tablet 08:58: at [place] 00 bedtime. Medical Branch citalopram 2020-0 Yes 20mg Take 20 mg U nivers 20 mg 5-10 by mouth ity of tablet 08:58: daily. Medical Branch ARIPiprazol 2020-0 Yes 10mg Take 10 mg Univers e 10 mg 5-10 by mouth ity of tablet 08:58: daily. Medical Branch traZODone 0 Yes 50mg Take 50 mg Un [place] 50 mg 5-10 by mouth ity of tablet 08:58: at [place] 00 bedtime. Medical Branch citalopram 0 Yes 20mg Take 20 mg U nivers 20 mg 5-07 by mouth ity of tablet 13:45: daily. [place] 14 Medical Branch ARIPiprazol 0 Yes 10mg Take 10 mg Univers e 10 mg 5-07 by mouth ity of tablet 13:45: daily. [place] 14 Medical Branch traZODone 0 Yes 50mg Take 50 mg Un [place] 50 mg 5-07 by mouth ity of tablet 13:45: at [place] [address] bedtime. Medical Branch citalopram 0 Yes 20mg Take 20 mg U nivers 20 mg 5-07 by mouth ity of tablet 13:45: daily. [facility] Branch ARIPiprazol 0 Yes 10mg Take 10 mg Univers e 10 mg 5-07 by mouth ity of tablet 13:45: daily. 14 Medical Branch traZODone 0 Yes 50mg Take 50 mg Un re[place] 50 mg 5-07 by mouth ity of tablet 13:45: at [place] [address] bedtime. Medical Branch citalopram 0 Yes 20mg Take 20 mg U nivers 20 mg 5-07 by mouth ity of tablet 13:45: daily. 14 Medical Branch ARIPiprazol 0 Yes 10mg Take 10 mg Univers e 10 mg 5-07 by mouth ity of tablet 13:45: daily. 14 Medical Branch traZODone 0 Yes 50mg Take 50 mg Un [place] 50 mg 5-07 by mouth ity of tablet 13:45: at [place] [address] bedtime. Medical Branch HYDROcodone 2020- No .5{tbl} Take 0.5 Univers -acetaminop 4-28 04-28 tablets by i ty of hen 7.5-325 20:46: 00:00 [place] mg per 07 :00 every 4 Medical tablet (four) Branch hours. HYDROcodone 2020- No .5{tbl} Take 0.5 Univers -acetaminop 4-28 04-28 tablets by i ty of hen 7.5-325 20:46: 00:00 [place] mg per 07 :00 every 4 Medical tablet (four) Branch hours. metoprolol 2020- No 25mg Take 25 mg Univers succinate -28 -28 by mouth ity o f XL 25 mg 24 20:35: 00:00 daily. [place] hr tablet 23 :00 Medical Branch metoprolol 2020- No 25mg Take 25 mg Univers succinate -28 -28 by mouth ity o f XL 25 mg 24 20:35: 00:00 daily. [place] hr tablet 23 :00 Medical Branch losartan-hy Yes [id number] 1{tbl} Take 1 Univers drochloroth 4-28 tablet by ity of iazide 00:00: mouth [place] 100-25 mg 00 daily. Medical per tablet Branch amLODIPine Yes [id number] 10mg Take 1 U nivers 10 mg 4-28 tablet by ity of tablet 00:00: mouth [place] 00 daily. Medical Branch metoprolol Yes [id number] 25mg Take 1 U nivers succinate 4-28 tablet by ity o f XL 25 mg 24 00:00: mouth [place] hr tablet 00 daily. Medical Branch mupirocin 2 Yes [id number] Apply to Univers % ointment 4-28 area(s) 3 ity of 00:00: (three) [place] 00 times Medical daily. Branch Apply 4g to affected area hand niacin 500 Yes [id number] 500mg Take 1 Univers mg tablet 4-28 tablet by ity o f 00:00: mouth at [place] 00 bedtime. Medical Branch losartan-hy Yes [id number] 1{tbl} Take 1 Univers drochloroth 4-28 tablet by ity of iazide 00:00: mouth [place] 100-25 mg 00 daily. Medical per tablet Branch amLODIPine Yes [id number] 10mg Take 1 U nivers 10 mg 4-28 tablet by ity of tablet 00:00: mouth [place] 00 daily. Medical Branch metoprolol Yes [id number] 25mg Take 1 U nivers succinate 4-28 tablet by ity o f XL 25 mg 24 00:00: mouth [place] hr tablet 00 daily. Medical Branch mupirocin 2 Yes [id number] Apply to Univers % ointment 4-28 area(s) 3 ity of 00:00: (three) [place] 00 times Medical daily. Branch Apply 4g to affected area hand niacin 500 Yes [id number] 500mg Take 1 Univers mg tablet 4-28 tablet by ity o f 00:00: mouth at [place] 00 bedtime. Medical Branch losartan-hy Yes [id number] 1{tbl} Take 1 Univers drochloroth 4-28 tablet by ity of iazide 00:00: mouth [place] 100-25 mg 00 daily. Medical per tablet Branch amLODIPine Yes [id number] 10mg Take 1 U nivers 10 mg 4-28 tablet by ity of tablet 00:00: mouth [place] 00 daily. Medical Branch metoprolol Yes [id number] 25mg Take 1 U nivers succinate 4-28 tablet by ity o f XL 25 mg 24 00:00: mouth [place] hr tablet 00 daily. Medical Branch mupirocin 2 Yes [id number] Apply to Univers % ointment 4-28 area(s) 3 ity of 00:00: (three) [place] 00 times Medical daily. Branch Apply 4g to affected area hand niacin 500 Yes [id number] 500mg Take 1 Univers mg tablet 4-28 tablet by ity o f 00:00: mouth at [place] 00 bedtime. Medical Branch amLODIPine Yes [id number] 10mg Take 1 U nivers 10 mg 4-28 tablet by ity of tablet 00:00: mouth [place] 00 daily. Medical Branch mupirocin 2 Yes [id number] Apply to Univers % ointment 4-28 area(s) 3 ity of 00:00: (three) [place] 00 times Medical daily. Branch Apply 4g to affected area hand niacin 500 Yes [id number] 500mg Take 1 Univers mg tablet 4-28 tablet by ity o f 00:00: mouth at [place] 00 bedtime. Medical Branch amLODIPine Yes [id number] 10mg Take 1 U nivers 10 mg 4-28 tablet by ity of tablet 00:00: mouth [place] 00 daily. Medical Branch mupirocin 2 Yes [id number] Apply to Univers % ointment 4-28 area(s) 3 ity of 00:00: (three) [place] 00 times Medical daily. Branch Apply 4g to affected area hand niacin 500 2020-0 Yes [id number] 500mg Take 1 Univers mg tablet 4-28 tablet by ity o f 00:00: mouth at [place] 00 bedtime. Medical Branch amLODIPine 0 Yes [id number] 10mg Take 1 U nivers 10 mg 4-28 tablet by ity of tablet 00:00: mouth 00 daily. Medical Branch mupirocin 2 Yes [id number] Apply to Univers % ointment 4-28 area(s) 3 ity of 00:00: (three) [place] 00 times Medical daily. Branch Apply 4g to affected area hand niacin 500 0 Yes [id number] 500mg Take 1 Univers mg tablet 4-28 tablet by ity o f 00:00: mouth at [place] bedtime. Medical Branch amLODIPine Yes [id number] 10mg Take 1 U nivers 10 mg 4-28 tablet by ity of tablet 00:00: mouth 00 daily. Medical Branch mupirocin 2 Yes [id number] Apply to Univers % ointment 4-28 area(s) 3 ity of 00:00: (three) 00 times Medical daily. Branch Apply 4g to affected area hand niacin 500 0 Yes [id number] 500mg Take 1 Univers mg tablet 4-28 tablet by ity o f 00:00: mouth at [place] bedtime. Medical Branch amLODIPine 0 Yes [id number] 10mg Take 1 U nivers 10 mg 4-28 tablet by ity of tablet 00:00: mouth 00 daily. Medical Branch mupirocin 2 Yes [id number] Apply to Univers % ointment 4-28 area(s) 3 ity of 00:00: (three) [place] 00 times Medical daily. Branch Apply 4g to affected area hand niacin 500 2020-0 Yes [id number] 500mg Take 1 Univers mg tablet 4-28 tablet by ity o f 00:00: mouth at [place] 00 bedtime. Medical Branch losartan-hy 2020-0 Yes [id number] 1{tbl} Take 1 Univers drochloroth 4-28 tablet by ity of iazide 00:00: mouth [place] 100-25 mg 00 daily. Medical per tablet Branch amLODIPine Yes [id number] 10mg Take 1 U nivers 10 mg 4-28 tablet by ity of tablet 00:00: mouth [place] 00 daily. Medical Branch metoprolol Yes [id number] 25mg Take 1 U nivers succinate 4-28 tablet by ity o f XL 25 mg 24 00:00: mouth [place] hr tablet 00 daily. Medical Branch mupirocin 2 Yes [id number] Apply to Univers % ointment 4-28 area(s) 3 ity of 00:00: (three) [place] 00 times Medical daily. Branch Apply 4g to affected area hand buPROPion Yes [id number] 150mg Take 1 [facility] SR 4-28 tablet by [facility] of (WELLBUTRIN 00:00: mouth 2 [place] SR) 150 mg 00 (two) Medical SR tablet times Branch daily. niacin 500 Yes [id number] 500mg Take 1 [facility] mg tablet 4-28 tablet by [facility] o f 00:00: mouth at [place] 00 bedtime. Medical Branch losartan-hy Yes [id number] 1{tbl} Take 1 [facility] drochloroth 4-28 tablet by [facility] of iazide 00:00: mouth [place] 100-25 mg 00 daily. Medical per tablet Branch amLODIPine Yes [id number] 10mg Take 1 [facility] 10 mg 4-28 tablet by [facility] of tablet 00:00: mouth [place] 00 daily. Medical Branch metoprolol Yes [id number] 25mg Take 1 [facility] succinate 4-28 tablet by ity o f XL 25 mg 24 00:00: mouth [place] hr tablet 00 daily. Medical Branch mupirocin 2 Yes [id number] Apply to [facility] % ointment 4-28 area(s) 3 ity of 00:00: (three) [place] 00 times Medical daily. Branch Apply 4g to affected area hand buPROPion 2020- Yes [id number] 150mg Take 1 [facility] SR 4-28 tablet by [facility] of (WELLBUTRIN 00:00: mouth 2 [place] SR) 150 mg 00 (two) Medical SR tablet times Branch daily. niacin 500 Yes [id number] 500mg Take 1 [facility] mg tablet 4-28 tablet by it[facility] o f 00:00: mouth at [place] 00 bedtime. Medical Branch losartan-hy 2020- Yes [id number] 1{tbl} Take 1 [facility] drochloroth 4-28 tablet by ity of iazide 00:00: mouth [place] 100-25 mg 00 daily. Medical per tablet Branch amLODIPine 0 Yes [id number] 10mg Take 1 [facility] 10 mg 4-28 tablet by [facility] of tablet 00:00: mouth [place] 00 daily. Medical Branch metoprolol Yes [id number] 25mg Take 1 [facility] succinate 4-28 tablet by ity o f XL 25 mg 24 00:00: mouth [place] hr tablet 00 daily. Medical Branch mupirocin 2 Yes [id number] Apply to [facility] % ointment 4-28 area(s) 3 ity of 00:00: (three) [place] 00 times Medical daily. Branch Apply 4g to affected area hand buPROPion 2020- Yes [id number] 150mg Take 1 [facility] SR 4-28 tablet by [facility] of (WELLBUTRIN 00:00: mouth 2 [place] SR) 150 mg 00 (two) Medical SR tablet times Branch daily. niacin 500 Yes [id number] 500mg Take 1 [facility] mg tablet 4-28 tablet by it[facility] o f 00:00: mouth at [place] 00 bedtime. Medical Branch losartan-hy Yes [id number] 1{tbl} Take 1 [facility] drochloroth 4-28 tablet by [facility]y of iazide 00:00: mouth [place] 100-25 mg 00 daily. Medical per tablet Branch amLODIPine Yes [id number] 10mg Take 1 [facility] 10 mg 4-28 tablet by [facility] of tablet 00:00: mouth [place] 00 daily. Medical Branch metoprolol Yes [id number] 25mg Take 1 [facility] succinate 4-28 tablet by ity o f XL 25 mg 24 00:00: mouth [place] hr tablet 00 daily. Medical Branch mupirocin 2 Yes [id number] Apply to [facility] % ointment 4-28 area(s) 3 ity of 00:00: (three) [place] 00 times Medical daily. Branch Apply 4g to affected area hand buPROPion Yes [id number] 150mg Take 1 [facility] SR 4-28 tablet by [facility] of (WELLBUTRIN 00:00: mouth 2 [place] SR) 150 mg 00 (two) Medical SR tablet times Branch daily. niacin 500 Yes [id number] 500mg Take 1 [facility] mg tablet 4-28 tablet by [facility] o f 00:00: mouth at [place] 00 bedtime. Medical Branch losartan-hy Yes [id number] 1{tbl} Take 1 [facility] drochloroth 4-28 tablet by [facility] of iazide 00:00: mouth [place] 100-25 mg 00 daily. Medical per tablet Branch amLODIPine Yes [id number] 10mg Take 1 [facility] 10 mg 4-28 tablet by [facility] of tablet 00:00: mouth [place] 00 daily. Medical Branch metoprolol Yes [id number] 25mg Take 1 [facility] succinate 4-28 tablet by ity o f XL 25 mg 24 00:00: mouth [place] hr tablet 00 daily. Medical Branch mupirocin 2 Yes [id number] Apply to [facility] % ointment 4-28 area(s) 3 ity of 00:00: (three) [place] 00 times Medical daily. Branch Apply 4g to affected area hand buPROPion Yes [id number] 150mg Take 1 [facility] SR 4-28 tablet by [facility] of (WELLBUTRIN 00:00: mouth 2 [place] SR) 150 mg 00 (two) Medical SR tablet times Branch daily. niacin 500 Yes [id number] 500mg Take 1 [facility] mg tablet 4-28 tablet by it[facility] o f 00:00: mouth at [place] 00 bedtime. Medical Branch losartan-hy Yes [id number] 1{tbl} Take 1 [facility] drochloroth 4-28 tablet by [facility]y of iazide 00:00: mouth [place] 100-25 mg 00 daily. Medical per tablet Branch losartan-hy Yes [id number] 1{tbl} Take 1 [facility] drochloroth 4-28 tablet by [facility]y of iazide 00:00: mouth [place] 100-25 mg 00 daily. Medical per tablet Branch amLODIPine Yes [id number] 10mg Take 1 [facility] 10 mg 4-28 tablet by [facility] of tablet 00:00: mouth [place] 00 daily. Medical Branch metoprolol Yes [id number] 25mg Take 1 [facility] succinate 4-28 tablet by ity o f XL 25 mg 24 00:00: mouth [place] hr tablet 00 daily. Medical Branch mupirocin 2 Yes [id number] Apply to [facility] % ointment 4-28 area(s) 3 ity of 00:00: (three) [place] 00 times Medical daily. Branch Apply 4g to affected area hand buPROPion Yes [id number] 150mg Take 1 [facility] SR 4-28 tablet by it[facility] of (WELLBUTRIN 00:00: mouth 2 [place] SR) 150 mg 00 (two) Medical SR tablet times Branch daily. niacin 500 Yes [id number] 500mg Take 1 [facility] mg tablet 4-28 tablet by it[facility] o f 00:00: mouth at [place] 00 bedtime. Medical Branch amLODIPine Yes [id number] 10mg Take 1 [facility] 10 mg 4-28 tablet by [facility] of tablet 00:00: mouth [place] 00 daily. Medical Branch losartan-hy Yes [id number] 1{tbl} Take 1 [facility] drochloroth 4-28 tablet by [facility]y of iazide 00:00: mouth [place] 100-25 mg 00 daily. Medical per tablet Branch amLODIPine Yes [id number] 10mg Take 1 [facility] 10 mg 4-28 tablet by [facility] of tablet 00:00: mouth [place] 00 daily. Medical Branch metoprolol Yes [id number] 25mg Take 1 [facility] succinate 4-28 tablet by ity o f XL 25 mg 24 00:00: mouth [place] hr tablet 00 daily. Medical Branch mupirocin 2 Yes [id number] Apply to [facility] % ointment 4-28 area(s) 3 ity of 00:00: (three) [place] 00 times Medical daily. Branch Apply 4g to affected area hand metoprolol Yes [id number] 25mg Take 1 [facility] succinate 4-28 tablet by ity o f XL 25 mg 24 00:00: mouth [place] hr tablet 00 daily. Medical Branch buPROPion Yes [id number] 150mg Take 1 [facility] SR 4-28 tablet by [facility] of (WELLBUTRIN 00:00: mouth 2 [place] SR) 150 mg 00 (two) Medical SR tablet times Branch daily. niacin 500 Yes [id number] 500mg Take 1 [facility] mg tablet 4-28 tablet by it[facility] o f 00:00: mouth at [place] 00 bedtime. Medical Branch mupirocin 2 Yes [id number] Apply to [facility] % ointment 4-28 area(s) 3 ity of 00:00: (three) [place] 00 times Medical daily. Branch Apply 4g to affected area hand buPROPion Yes [id number] 150mg Take 1 [facility] SR 4-28 tablet by [facility] of (WELLBUTRIN 00:00: mouth 2 [place] SR) 150 mg 00 (two) Medical SR tablet times Branch daily. losartan-hy Yes [id number] 1{tbl} Take 1 [facility] drochloroth 4-28 tablet by [facility]y of iazide 00:00: mouth [place] 100-25 mg 00 daily. Medical per tablet Branch amLODIPine Yes [id number] 10mg Take 1 [facility] 10 mg 4-28 tablet by [facility] of tablet 00:00: mouth [place] 00 daily. Medical Branch metoprolol Yes [id number] 25mg Take 1 [facility] succinate 4-28 tablet by ity o f XL 25 mg 24 00:00: mouth [place] hr tablet 00 daily. Medical Branch mupirocin 2 Yes [id number] Apply to [facility] % ointment 4-28 area(s) 3 ity of 00:00: (three) [place] 00 times Medical daily. Branch Apply 4g to affected area hand buPROPion Yes [id number] 150mg Take 1 [facility] SR 4-28 tablet by it[facility] of (WELLBUTRIN 00:00: mouth 2 [place] SR) 150 mg 00 (two) Medical SR tablet times Branch daily. niacin 500 Yes [id number] 500mg Take 1 [facility] mg tablet 4-28 tablet by it[facility] o f 00:00: mouth at [place] 00 bedtime. Medical Branch niacin 500 Yes [id number] 500mg Take 1 [facility] mg tablet 4-28 tablet by ity o f 00:00: mouth at [place] 00 bedtime. Medical Branch losartan-hy Yes [id number] 1{tbl} Take 1 [facility] drochloroth 4-28 tablet by ity of iazide 00:00: mouth [place] 100-25 mg 00 daily. Medical per tablet Branch amLODIPine Yes [id number] 10mg Take 1 [facility] 10 mg 4-28 tablet by [facility] of tablet 00:00: mouth [place] 00 daily. Medical Branch metoprolol Yes [id number] 25mg Take 1 [facility] succinate 4-28 tablet by ity o f XL 25 mg 24 00:00: mouth [place] hr tablet 00 daily. Medical Branch mupirocin 2 Yes [id number] Apply to [facility] % ointment 4-28 area(s) 3 ity of 00:00: (three) [place] 00 times Medical daily. Branch Apply 4g to affected area hand buPROPion Yes [id number] 150mg Take 1 [facility] SR 4-28 tablet by it[facility] of (WELLBUTRIN 00:00: mouth 2 [place] SR) 150 mg 00 (two) Medical SR tablet times Branch daily. niacin 500 Yes [id number] 500mg Take 1 [facility] mg tablet 4-28 tablet by ity o f 00:00: mouth at [place] 00 bedtime. Medical Branch losartan-hy Yes [id number] 1{tbl} Take 1 [facility] drochloroth 4-28 tablet by ity of iazide 00:00: mouth [place] 100-25 mg 00 daily. Medical per tablet Branch amLODIPine Yes [id number] 10mg Take 1 [facility] 10 mg 4-28 tablet by [facility] of tablet 00:00: mouth [place] 00 daily. Medical Branch metoprolol Yes [id number] 25mg Take 1 [facility] succinate 4-28 tablet by ity o f XL 25 mg 24 00:00: mouth [place] hr tablet 00 daily. Medical Branch mupirocin 2 Yes [id number] Apply to [facility] % ointment 4-28 area(s) 3 ity of 00:00: (three) [place] 00 times Medical daily. Branch Apply 4g to affected area hand buPROPion Yes [id number] 150mg Take 1 [facility] SR 4-28 tablet by ity of (WELLBUTRIN 00:00: mouth 2 [place] SR) 150 mg 00 (two) Medical SR tablet times Branch daily. niacin 500 Yes [id number] 500mg Take 1 [facility] mg tablet 4-28 tablet by ity o f 00:00: mouth at [place] 00 bedtime. Medical Branch losartan-hy Yes [id number] 1{tbl} Take 1 [facility] drochloroth 4-28 tablet by ity of iazide 00:00: mouth [place] 100-25 mg 00 daily. Medical per tablet Branch amLODIPine Yes [id number] 10mg Take 1 [facility] 10 mg 4-28 tablet by it[facility] of tablet 00:00: mouth [place] 00 daily. Medical Branch metoprolol Yes [id number] 25mg Take 1 [facility] succinate 4-28 tablet by ity o f XL 25 mg 24 00:00: mouth [place] hr tablet 00 daily. Medical Branch mupirocin 2 Yes [id number] Apply to [facility] % ointment 4-28 area(s) 3 ity of 00:00: (three) [place] 00 times Medical daily. Branch Apply 4g to affected area hand buPROPion Yes [id number] 150mg Take 1 [facility] SR 4-28 tablet by ity of (WELLBUTRIN 00:00: mouth 2 [place] SR) 150 mg 00 (two) Medical SR tablet times Branch daily. niacin 500 Yes [id number] 500mg Take 1 [facility] mg tablet 4-28 tablet by ity o f 00:00: mouth at [place] 00 bedtime. Medical Branch losartan-hy Yes [id number] 1{tbl} Take 1 [facility] drochloroth 4-28 tablet by ity of iazide 00:00: mouth [place] 100-25 mg 00 daily. Medical per tablet Branch amLODIPine Yes [id number] 10mg Take 1 [facility] 10 mg 4-28 tablet by [facility] of tablet 00:00: mouth [place] 00 daily. Medical Branch metoprolol Yes [id number] 25mg Take 1 [facility] succinate 4-28 tablet by ity o f XL 25 mg 24 00:00: mouth [place] hr tablet 00 daily. Medical Branch mupirocin 2 2021-0 Yes [id number] Apply to [facility] % ointment 4-28 area(s) 3 ity of 00:00: (three) [place] 00 times Medical daily. Branch Apply 4g to affected area hand buPROPion Yes [id number] 150mg Take 1 [facility] SR 4-28 tablet by ity of (WELLBUTRIN 00:00: mouth 2 [place] SR) 150 mg 00 (two) Medical SR tablet times Branch daily. niacin 500 0 Yes [id number] 500mg Take 1 [facility] mg tablet 4-28 tablet by ity o f 00:00: mouth at [place] 00 bedtime. Medical Branch losartan-hy 2020-0 Yes [id number] 1{tbl} Take 1 [facility] drochloroth 4-28 tablet by ity of iazide 00:00: mouth [place] 100-25 mg 00 daily. Medical per tablet Branch amLODIPine Yes [id number] 10mg Take 1 [facility] 10 mg 4-28 tablet by ity of tablet 00:00: mouth [place] 00 daily. Medical Branch metoprolol Yes [id number] 25mg Take 1 [facility] succinate 4-28 tablet by ity o f XL 25 mg 24 00:00: mouth [place] hr tablet 00 daily. Medical Branch mupirocin 2 Yes [id number] Apply to [facility] % ointment 4-28 area(s) 3 ity of 00:00: (three) [place] 00 times Medical daily. Branch Apply 4g to affected area hand buPROPion Yes [id number] 150mg Take 1 [facility] SR 4-28 tablet by ity of (WELLBUTRIN 00:00: mouth 2 [place] SR) 150 mg 00 (two) Medical SR tablet times Branch daily. niacin 500 Yes [id number] 500mg Take 1 [facility] mg tablet 4-28 tablet by ity o f 00:00: mouth at [place] 00 bedtime. Medical Branch losartan-hy 0 Yes [id number] 1{tbl} Take 1 [facility] drochloroth 4-28 tablet by ity of iazide 00:00: mouth [place] 100-25 mg 00 daily. Medical per tablet Branch amLODIPine 2020-0 Yes [id number] 10mg Take 1 [facility] 10 mg 4-28 tablet by ity of tablet 00:00: mouth [place] 00 daily. Medical Branch metoprolol Yes [id number] 25mg Take 1 [facility] succinate 4-28 tablet by ity o f XL 25 mg 24 00:00: mouth [place] hr tablet 00 daily. Medical Branch mupirocin 2 Yes [id number] Apply to [facility] % ointment 4-28 area(s) 3 ity of 00:00: (three) [place] 00 times Medical daily. Branch Apply 4g to affected area hand buPROPion Yes [id number] 150mg Take 1 [facility] SR 4-28 tablet by ity of (WELLBUTRIN 00:00: mouth 2 [place] SR) 150 mg 00 (two) Medical SR tablet times Branch daily. niacin 500 Yes [id number] 500mg Take 1 [facility] mg tablet 4-28 tablet by ity o f 00:00: mouth at [place] 00 bedtime. Medical Branch losartan-hy Yes [id number] 1{tbl} Take 1 [facility] drochloroth 4-28 tablet by ity of iazide 00:00: mouth [place] 100-25 mg 00 daily. Medical per tablet Branch amLODIPine Yes [id number] 10mg Take 1 [facility] 10 mg 4-28 tablet by ity of tablet 00:00: mouth [place] 00 daily. Medical Branch metoprolol Yes [id number] 25mg Take 1 [facility] n[facility] succinate 4-28 tablet by ity o f XL 25 mg 24 00:00: mouth [place] hr tablet 00 daily. Medical Branch mupirocin 2 Yes [id number] Apply to [facility] % ointment 4-28 area(s) 3 ity of 00:00: (three) [place] 00 times Medical daily. Branch Apply 4g to affected area hand buPROPion Yes [id number] 150mg Take 1 [facility] SR 4-28 tablet by ity of (WELLBUTRIN 00:00: mouth 2 [place] SR) 150 mg 00 (two) Medical SR tablet times Branch daily. niacin 500 Yes [id number] 500mg Take 1 [facility] mg tablet 4-28 tablet by ity o f 00:00: mouth at [place] 00 bedtime. Medical Branch losartan-hy Yes [id number] 1{tbl} Take 1 [facility] drochloroth 4-28 tablet by ity of iazide 00:00: mouth [place] 100-25 mg 00 daily. Medical per tablet Branch amLODIPine Yes [id number] 10mg Take 1 [facility] 10 mg 4-28 tablet by ity of tablet 00:00: mouth [place] 00 daily. Medical Branch metoprolol Yes [id number] 25mg Take 1 [facility] succinate 4-28 tablet by ity o f XL 25 mg 24 00:00: mouth [place] hr tablet 00 daily. Medical Branch mupirocin 2 Yes [id number] Apply to [facility] % ointment 4-28 area(s) 3 ity of 00:00: (three) [place] 00 times Medical daily. Branch Apply 4g to affected area hand buPROPion Yes [id number] 150mg Take 1 [facility] SR 4-28 tablet by ity of (WELLBUTRIN 00:00: mouth 2 [place] [facility] SR) 150 mg 00 (two) Medical SR tablet times Branch daily. niacin 500 Yes [id number] 500mg Take 1 [facility] mg tablet 4-28 tablet by ity o f 00:00: mouth at [place] 00 bedtime. Medical Branch losartan-hy Yes [id number] 1{tbl} Take 1 [facility] drochloroth 4-28 tablet by ity of iazide 00:00: mouth [place] 100-25 mg 00 daily. Medical per tablet Branch amLODIPine Yes [id number] 10mg Take 1 [facility] 10 mg 4-28 tablet by ity of tablet 00:00: mouth [place] 00 daily. Medical Branch metoprolol Yes [id number] 25mg Take 1 [facility] n[facility] succinate 4-28 tablet by ity o f XL 25 mg 24 00:00: mouth [place] hr tablet 00 daily. Medical Branch mupirocin 2 Yes [id number] Apply to [facility] % ointment 4-28 area(s) 3 ity of 00:00: (three) [place] 00 times Medical daily. Branch Apply 4g to affected area hand niacin 500 Yes [id number] 500mg Take 1 [facility] mg tablet 4-28 tablet by ity o f 00:00: mouth at [place] 00 bedtime. Medical Branch losartan-hy 2022021- No [id number] 1{tbl} Take 1 [facility] drochloroth 4-28 - tablet by it y of iazide 00:00: 00:00 mouth [place] 100-25 mg 00 :00 daily. Medical per tablet Branch metoprolol 2021- No [id number] 25mg Take 1 [facility] succinate 4-28 - tablet by ity of XL 25 mg 24 00:00: 00:00 mouth [place] hr tablet 00 :00 daily. [facility] buPROPion 2020- No [id number] 150mg Take 1 [facility] SR 4-28 -27 tablet by ity of (WELLBUTRIN 00:00: 00:00 mouth 2 [place] SR) 150 mg 00 :00 (two) Medical SR tablet times Branch daily. AMLODIPINE Yes [id number] TAKE 1 [facility] 10 mg 4-15 TABLET BY ity of tablet 00:00: MOUTH [place] 00 EVERY DAY Medical Branch AMLODIPINE 2020- No [id number] TAKE 1 [facility] 10 mg 4-15 04-28 TABLET BY ity of tablet 00:00: 00:00 MOUTH [place] 00 :00 EVERY DAY Medical Branch AMLODIPINE 2020- No [id number] TAKE 1 [facility] 10 mg 4-15 04-28 TABLET BY ity of tablet 00:00: 00:00 MOUTH [place] 00 :00 EVERY DAY Medical Branch FLUTICASONE Yes [id number] SPRAY 1 [facility] PROPIONATE 3-31 SPRAY INTO ity of 50 00:00: EACH [place] mcg/actuati 00 NOSTRIL Medic al on nasal EVERY DAY Branch spray FLUTICASONE Yes [id number] SPRAY 1 [facility] PROPIONATE 3-31 SPRAY INTO ity of 50 00:00: EACH [place] mcg/actuati 00 NOSTRIL Medic al on nasal EVERY DAY Branch spray FLUTICASONE 2020- No [id number] SPRAY 1 [facility] PROPIONATE 3-31 04-28 SPRAY INTO it y of 50 00:00: 00:00 EACH [place] mcg/actuati 00 :00 NOSTRIL Medic al on nasal EVERY DAY Branch spray FLUTICASONE 2020- No [id number] SPRAY 1 [facility] PROPIONATE 3-31 04-28 SPRAY INTO it y of 50 00:00: 00:00 EACH [place] mcg/actuati 00 :00 NOSTRIL Medic al on nasal EVERY DAY Branch spray OMEPRAZOLE 1-0 Yes [id number] TAKE 1 [facility] 40 mg 3-05 CAPSULE BY ity of capsule 00:00: MOUTH [place] 00 EVERY DAY Medical Branch OMEPRAZOLE 2021-0 Yes [id number] TAKE 1 [facility] 40 mg 3-05 CAPSULE BY ity of capsule 00:00: MOUTH [place] 00 EVERY DAY Medical Branch OMEPRAZOLE 2021-0 Yes [id number] TAKE 1 [facility] 40 mg 3-05 CAPSULE BY ity of capsule 00:00: MOUTH [place] 00 EVERY DAY Medical Branch OMEPRAZOLE 2021-0 Yes [id number] TAKE 1 [facility] 40 mg 3-05 CAPSULE BY ity of capsule 00:00: MOUTH [place] 00 EVERY DAY Medical Branch OMEPRAZOLE 2021-0 Yes [id number] TAKE 1 [facility] 40 mg 3-05 CAPSULE BY ity of capsule 00:00: MOUTH [place] 00 EVERY DAY Medical Branch OMEPRAZOLE 1-0 Yes [id number] TAKE 1 [facility] 40 mg 3-05 CAPSULE BY ity of capsule 00:00: MOUTH [place] EVERY DAY Medical Branch OMEPRAZOLE 2021-0 Yes [id number] TAKE 1 [facility] 40 mg 3-05 CAPSULE BY ity of capsule 00:00: MOUTH [place] 00 EVERY DAY Medical Branch OMEPRAZOLE 2021-0 Yes [id number] TAKE 1 [facility] 40 mg 3-05 CAPSULE BY ity of capsule 00:00: MOUTH [place] 00 EVERY DAY Medical Branch OMEPRAZOLE 2021-0 Yes [id number] TAKE 1 [facility] 40 mg 3-05 CAPSULE BY ity of capsule 00:00: MOUTH [place] 00 EVERY DAY Medical Branch OMEPRAZOLE 2021-0 Yes [id number] TAKE 1 [facility] 40 mg 3-05 CAPSULE BY ity of capsule 00:00: MOUTH [place] 00 EVERY DAY Medical Branch OMEPRAZOLE 2021-0 Yes [id number] TAKE 1 [facility] 40 mg 3-05 CAPSULE BY ity of capsule 00:00: MOUTH [place] 00 EVERY DAY Medical Branch OMEPRAZOLE 2021-0 Yes [id number] TAKE 1 [facility] 40 mg 3-05 CAPSULE BY ity of capsule 00:00: MOUTH [place] 00 EVERY DAY Medical Branch OMEPRAZOLE 2021-0 Yes [id number] TAKE 1 [facility] 40 mg 3-05 CAPSULE BY ity of capsule 00:00: MOUTH [place] 00 EVERY DAY Medical Branch OMEPRAZOLE 2021-0 Yes [id number] TAKE 1 [facility] 40 mg 3-05 CAPSULE BY ity of capsule 00:00: MOUTH [place] 00 EVERY DAY Medical Branch OMEPRAZOLE 2020-0 Yes [id number] TAKE 1 [facility] 40 mg 3-05 CAPSULE BY ity of capsule 00:00: MOUTH [place] 00 EVERY DAY Medical Branch OMEPRAZOLE 2020-0 Yes [id number] TAKE 1 [facility] 40 mg 3-05 CAPSULE BY ity of capsule 00:00: MOUTH [place] 00 EVERY DAY Medical Branch OMEPRAZOLE 2020-0 Yes [id number] TAKE 1 [facility] 40 mg 3-05 CAPSULE BY ity of capsule 00:00: MOUTH [place] 00 EVERY DAY Medical Branch OMEPRAZOLE 2020-0 1- No [id number] TAKE 1 [facility] 40 mg 3-05 05-28 CAPSULE BY ity of capsule 00:00: 00:00 MOUTH [place] 00 :00 EVERY DAY Medical Branch FLUTICASONE 0 Yes [id number] SPRAY 1 [facility] PROPIONATE 1-20 SPRAY INTO ity of 50 00:00: EACH [place] mcg/actuati 00 NOSTRIL Medic al on nasal EVERY DAY Branch spray FLUTICASONE Yes [id number] SPRAY 1 [facility] PROPIONATE 1-20 SPRAY INTO ity of 50 00:00: EACH [place] mcg/actuati 00 NOSTRIL Medic al on nasal EVERY DAY Branch spray FLUTICASONE 2020- No [id number] SPRAY 1 [facility] PROPIONATE 1-20 03-31 SPRAY INTO it y of 50 00:00: 00:00 EACH [place] mcg/actuati 00 :00 NOSTRIL Medic al on nasal EVERY DAY Branch spray cetirizine 2019-07 Yes [id number] 10mg Take 1 [facility] (ZYRTEC) 10 2-29 tablet by ity of mg tablet 00:00: mouth [place] 00 daily. Medical Branch fluticasone 2019-07 Yes [id number] 1{spray Use 1 [facility] propionate 2-29 } [place] in ity o f 50 00:00: each [place] mcg/actuati 00 nostril Medic al on nasal daily. Branch spray cetirizine 2019-07 Yes [id number] 10mg Take 1 [facility] (ZYRTEC) 10 2-29 tablet by ity of mg tablet 00:00: mouth [place] 00 daily. Medical Branch cetirizine 2019-07 Yes [id number] 10mg Take 1 [facility] (ZYRTEC) 10 2-29 tablet by ity of mg tablet 00:00: mouth [place] 00 daily. Medical Branch cetirizine 2019-07 Yes [id number] 10mg Take 1 [facility] (ZYRTEC) 10 2-29 tablet by ity of mg tablet 00:00: mouth [place] 00 daily. Medical Branch cetirizine 2019-07 Yes [id number] 10mg Take 1 [facility] (ZYRTEC) 10 2-29 tablet by ity of mg tablet 00:00: mouth [place] 00 daily. Medical Branch cetirizine 2019-07- No [id number] 10mg Take 1 [facility] (ZYRTEC) 10 2-18 11-28 tablet by it y of mg tablet 00:00: 00:00 mouth [place] 00 :00 daily. Medical Branch cetirizine 2019-07- No [id number] 10mg Take 1 [facility] (ZYRTEC) 10 2-18 11- tablet by it y of mg tablet 00:00: 00:00 mouth [place] 00 :00 daily. Medical Branch fluticasone 2019-07- No [id number] 1{spray Use 1 [facility] propionate -29 -20 } [place] in ity of 50 00:00: 00:00 each [place] mcg/actuati 00 :00 nostril Medic al on nasal daily. Branch spray OMEPRAZOLE 2019-07 Yes [id number] TAKE 1 [facility] 40 mg 2-10 CAPSULE BY ity of capsule 00:00: MOUTH [place] 00 EVERY DAY Medical Branch OMEPRAZOLE 2019- Yes [id number] TAKE 1 [facility] 40 mg 2-10 CAPSULE BY ity of capsule 00:00: MOUTH [place] 00 EVERY DAY Medical Branch OMEPRAZOLE 2019- Yes [id number] TAKE 1 [facility] 40 mg 2-10 CAPSULE BY ity of capsule 00:00: MOUTH [place] 00 EVERY DAY Medical Branch OMEPRAZOLE 2019-2020- No [id number] TAKE 1 [facility] 40 mg 2-10 03-05 CAPSULE BY ity of capsule 00:00: 00:00 MOUTH [place] 00 :00 EVERY DAY Medical Branch amLODIPine 2019- Yes [id number] 10mg Take 1 [facility] 10 mg 0-13 tablet by ity of tablet 00:00: mouth [place] 00 daily. Medical Branch amLODIPine 2019- Yes [id number] 10mg Take 1 [facility] 10 mg 0-13 tablet by ity of tablet 00:00: mouth [place] 00 daily. Medical Branch amLODIPine 2020- Yes [id number] 10mg Take 1 [facility] 10 mg 0-13 tablet by ity of tablet 00:00: mouth [place] 00 daily. Medical Branch amLODIPine 2019- Yes [id number] 10mg Take 1 [facility] 10 mg 0-13 tablet by ity of tablet 00:00: mouth [place] 00 daily. Medical Branch amLODIPine 2019- Yes [id number] 10mg Take 1 [facility] 10 mg 0-13 tablet by ity of tablet 00:00: mouth [place] 00 daily. Medical Branch amLODIPine 2019- Yes [id number] 10mg Take 1 [facility] 10 mg 0-13 tablet by ity of tablet 00:00: mouth [place] 00 daily. Medical Branch amLODIPine 2019-2020- No [id number] 10mg Take 1 [facility] 10 mg 0-13 04-15 tablet by ity of tablet 00:00: 00:00 mouth [place] 00 :00 daily. [facility] Branch tadalafiL 2020-0 Yes [id number] 10mg Take 1 [facility] (CIALIS) 10 9-24 tablet by [facility] mg tablet 00:00: mouth [place] 00 needed for Medical Erectile Branch dysfunctio n (30 mins prior to sexual activity). tadalafiL 2020-0 Yes [id number] 10mg Take 1 [facility] (CIALIS) 10 9-24 tablet by [facility] mg tablet 00:00: mouth as [place] 00 needed for Medical Erectile Branch dysfunctio n (30 mins prior to sexual activity). tadalafiL 2020-0 Yes [id number] 10mg Take 1 [facility] (CIALIS) 10 9-24 tablet by [facility] mg tablet 00:00: mouth as [place] 00 needed for Medical Erectile Branch dysfunctio n (30 mins prior to sexual activity). tadalafiL 2020-0 Yes [id number] 10mg Take 1 [facility] (CIALIS) 10 9-24 tablet by [facility] mg tablet 00:00: mouth as [place] 00 needed for Medical Erectile Branch dysfunctio n (30 mins prior to sexual activity). tadalafiL 2020-0 Yes [id number] 10mg Take 1 [facility] (CIALIS) 10 9-24 tablet by [facility] mg tablet 00:00: mouth as [place] 00 needed for Medical Erectile Branch dysfunctio n (30 mins prior to sexual activity). tadalafiL 2020-0 Yes [id number] 10mg Take 1 [facility] (CIALIS) 10 9-24 tablet by [facility] mg tablet 00:00: mouth as [place] 00 needed for Medical Erectile Branch dysfunctio n (30 mins prior to sexual activity). tadalafiL 2020-0 Yes [id number] 10mg Take 1 [facility] (CIALIS) 10 9-24 tablet by [facility] mg tablet 00:00: mouth as [place] 00 needed for Medical Erectile Branch dysfunctio n (30 mins prior to sexual activity). tadalafiL 2020-0 Yes [id number] 10mg Take 1 U nivers (CIALIS) 10 9-24 tablet by [facility] [place] Medical Erectile Branch dysfunctio n (30 mins prior to sexual activity). tadalafiL 2020-0 Yes [id number] 10mg Take 1 U nivers (CIALIS) 10 9-24 tablet by [facility] [place] needed for Medical Erectile Branch dysfunctio n (30 mins prior to sexual activity). tadalafiL 2020-0 Yes [id number] 10mg Take 1 U nivers (CIALIS) 10 9-24 tablet by [facility] tablet [place]: [place] needed for Medical Erectile Branch dysfunctio n (30 mins prior to sexual activity). tadalafiL 2020-0 Yes [id number] 10mg Take 1 U nivers (CIALIS) 10 9-24 tablet by [facility] tablet [place]: [place] needed for Medical Erectile Branch dysfunctio n (30 mins prior to sexual activity). tadalafiL 2020-0 Yes [id number] 10mg Take 1 [facility] nivers (CIALIS) 10 9-24 tablet by [facility] mg tablet [place]:00: mouth [place] needed for Medical Erectile Branch dysfunctio n (30 mins prior to sexual activity). tadalafiL 2020-0 Yes [id number] 10mg Take 1 [facility] nivers (CIALIS) 10 9-24 tablet by [facility] mg tablet 00:00: mouth [place] needed for Medical Erectile Branch dysfunctio n (30 mins prior to sexual activity). tadalafiL 2020-0 Yes [id number] 10mg Take 1 [facility] n[facility] (CIALIS) 10 9-24 tablet by [facility] mg tablet 00:00: mouth [place] needed for Medical Erectile Branch dysfunctio n (30 mins prior to sexual activity). tadalafiL 2020-0 Yes [id number] 10mg Take 1 [facility] n[facility] (CIALIS) 10 9-24 tablet by [facility] mg tablet 00:00: mouth [place] needed for Medical Erectile Branch dysfunctio n (30 mins prior to sexual activity). tadalafiL 2020-0 Yes [id number] 10mg Take 1 [facility] nivers (CIALIS) 10 9-24 tablet by [facility] mg tablet 00:00: mouth [place] needed for Medical Erectile Branch dysfunctio n (30 mins prior to sexual activity). tadalafiL 2020-0 Yes [id number] 10mg Take 1 [facility] nivers (CIALIS) 10 9-24 tablet by [facility] mg tablet 00:00: mouth [place] needed for Medical Erectile Branch dysfunctio n (30 mins prior to sexual activity). tadalafiL 2020-0 Yes [id number] 10mg Take 1 [facility] nivers (CIALIS) 10 9-24 tablet by [facility] mg tablet 00:00: mouth [place] needed for Medical Erectile Branch dysfunctio n (30 mins prior to sexual activity). tadalafiL 2020-0 Yes [id number] 10mg Take 1 [facility] nivers (CIALIS) 10 9-24 tablet by [facility] mg tablet 00:00: mouth [place] needed for Medical Erectile Branch dysfunctio n (30 mins prior to sexual activity). tadalafiL 2020-0 Yes [id number] 10mg Take 1 [facility] nivers (CIALIS) 10 9-24 tablet by [facility] mg tablet 00:00: mouth [place] needed for Medical Erectile Branch dysfunctio n (30 mins prior to sexual activity). tadalafiL 2020-0 Yes [id number] 10mg Take 1 [facility] nivers (CIALIS) 10 9-24 tablet by [facility] of mg tablet 00:00: mouth [place] needed for Medical Erectile Branch dysfunctio n (30 mins prior to sexual activity). tadalafiL 2020-0 Yes [id number] 10mg Take 1 [facility] nivers (CIALIS) 10 9-24 tablet by [facility] mg tablet 00:00: mouth [place] needed for Medical Erectile Branch dysfunctio n (30 mins prior to sexual activity). tadalafiL 2020-0 Yes [id number] 10mg Take 1 [facility] n[facility] (CIALIS) 10 9-24 tablet by [facility] mg tablet 00:00: mouth [place] needed for Medical Erectile Branch dysfunctio n (30 mins prior to sexual activity). tadalafiL 2020-0 Yes [id number] 10mg Take 1 [facility] nivers (CIALIS) 10 9-24 tablet by [facility] mg tablet 00:00: mouth [place] 00 needed for Medical Erectile Branch dysfunctio n (30 mins prior to sexual activity). tadalafiL 2020-0 Yes [id number] 10mg Take 1 [facility] nivers (CIALIS) 10 9-24 tablet by [facility] of mg tablet 00:00: mouth [place] 00 needed for Medical Erectile Branch dysfunctio n (30 mins prior to sexual activity). tadalafiL 2020-0 Yes [id number] 10mg Take 1 [facility] nivers (CIALIS) 10 9-24 tablet by [facility] of mg tablet 00:00: mouth [place] 00 needed for Medical Erectile Branch dysfunctio n (30 mins prior to sexual activity). tadalafiL 2020-0 Yes [id number] 10mg Take 1 [facility] nivers (CIALIS) 10 9-24 tablet by [facility] of mg tablet 00:00: mouth [place] 00 needed for Medical Erectile Branch dysfunctio n (30 mins prior to sexual activity). tadalafiL 2020-0 Yes [id number] 10mg Take 1 [facility] nivers (CIALIS) 10 9-24 tablet by [facility] of mg tablet 00:00: mouth [place] 00 needed for Medical Erectile Branch dysfunctio n (30 mins prior to sexual activity). tadalafiL 2020-0 Yes [id number] 10mg Take 1 [facility] nivers (CIALIS) 10 9-24 tablet by [facility] of mg tablet 00:00: mouth [place] 00 needed for Medical Erectile Branch dysfunctio n (30 mins prior to sexual activity). tadalafiL 2020-0 Yes [id number] 10mg Take 1 [facility] nivers (CIALIS) 10 9-24 tablet by [facility] of mg tablet 00:00: mouth [place] 00 needed for Medical Erectile Branch dysfunctio n (30 mins prior to sexual activity). tadalafiL 2020-0 Yes [id number] 10mg Take 1 [facility] nivers (CIALIS) 10 9-24 tablet by [facility] of mg tablet 00:00: mouth [place] 00 needed for Medical Erectile Branch dysfunctio n (30 mins prior to sexual activity). tadalafiL 2020-0 Yes [id number] 10mg Take 1 [facility] nivers (CIALIS) 10 9-24 tablet by [facility] of mg tablet 00:00: mouth [place] 00 needed for Medical Erectile Branch dysfunctio n (30 mins prior to sexual activity). tadalafiL 2020-0 Yes [id number] 10mg Take 1 [facility] nivers (CIALIS) 10 9-24 tablet by [facility] of mg tablet 00:00: mouth [place] 00 needed for Medical Erectile Branch dysfunctio n (30 mins prior to sexual activity). tadalafiL 2020-0 Yes [id number] 10mg Take 1 [facility] nivers (CIALIS) 10 9-24 tablet by [facility] of mg tablet 00:00: mouth [place] 00 needed for Medical Erectile Branch dysfunctio n (30 mins prior to sexual activity). tadalafiL 2020-0 Yes [id number] 10mg Take 1 [facility] nivers (CIALIS) 10 9-24 tablet by [facility] of mg tablet 00:00: mouth [place] 00 needed for Medical Erectile Branch dysfunctio n (30 mins prior to sexual activity). tadalafiL 2020-0 Yes [id number] 10mg Take 1 [facility] nivers (CIALIS) 10 9-24 tablet by [facility] mg tablet 00:00: mouth [place] needed for Medical Erectile Branch dysfunctio n (30 mins prior to sexual activity). tadalafiL 2020-0 Yes [id number] 10mg Take 1 U nivers (CIALIS) 10 [...] by mouth ity of tablet 14:04: daily. [place] [address] Medical Branch ARIPiprazol 2020-0 Yes 10mg Take 10 mg [facility] 10 mg 9-01 by mouth ity of tablet 14:04: daily. [place] [address] Medical Branch traZODone 2020-0 Yes 50mg Take 50 mg [place] 50 mg 9-01 by mouth ity of tablet 14:04: at [place] [address] bedtime. Medical Branch HYDROcodone 2020-0 Yes .5{tbl} Take 0.5 [facility] -acetaminop 9-01 tablets by it y of hen 7.5-325 14:04: mouth [place] mg per 34 every 4 Medical tablet (four) Branch hours. citalopram 2020-0 Yes 20mg Take 20 mg [facility] 20 mg 9-01 by mouth ity of tablet 14:04: daily. [place] [address] Medical Branch ARIPiprazol 2020-0 Yes 10mg Take 10 mg [facility] 10 mg 9-01 by mouth ity of tablet 14:04: daily. [place] [address] Medical Branch traZODone 2020-0 Yes 50mg Take 50 mg [place] 50 mg 9-01 by mouth ity of tablet 14:04: at [place] [address] bedtime. Medical Branch HYDROcodone 2020-0 Yes .5{tbl} Take 0.5 [facility] -acetaminop 9-01 tablets by it y of hen 7.5-325 14:04: mouth [place] mg per 34 every 4 Medical tablet (four) Branch hours. citalopram 2020-0 Yes 20mg Take 20 mg [facility] 20 mg 9-01 by mouth ity of tablet 14:04: daily. [place] [address] Medical Branch ARIPiprazol 2020-0 Yes 10mg Take 10 mg [facility] 10 mg 9-01 by mouth ity of tablet 14:04: daily. [place] [address] Medical Branch traZODone 2020-0 Yes 50mg Take 50 mg [place] 50 mg 9-01 by mouth ity of tablet 14:04: at [place] [address] bedtime. Medical Branch HYDROcodone 2020-0 Yes .5{tbl} Take 0.5 [facility] -acetaminop 9-01 tablets by it y of hen 7.5-325 14:04: mouth [place] mg per 34 every 4 Medical tablet (four) Branch hours. citalopram 2020-0 Yes 20mg Take 20 mg [facility] 20 mg 9-01 by mouth ity of tablet 14:04: daily. [address] ARIPiprazol 2020-0 Yes 10mg Take 10 mg [facility] 10 mg 9-01 by mouth ity of tablet 14:04: daily. [address] Branch traZODone 2020-0 Yes 50mg Take 50 mg [place] 50 mg 9-01 by mouth ity of tablet 14:04: at [place] [address] bedtime. Medical Branch HYDROcodone 2020-0 Yes .5{tbl} Take 0.5 [facility] -acetaminop 9-01 tablets by it y of hen 7.5-325 14:04: mouth [place] mg per 34 every 4 Medical tablet (four) Branch hours. citalopram 2020-0 Yes 20mg Take 20 mg [facility] 20 mg 9-01 by mouth ity of tablet 14:04: daily. [address] ARIPiprazol 2020-0 Yes 10mg Take 10 mg [facility] 10 mg 9-01 by mouth ity of tablet 14:04: daily. [place] [address] Medical Branch traZODone 2020-0 Yes 50mg Take 50 mg [place] 50 mg 9-01 by mouth ity of tablet 14:04: at [place] [address] bedtime. Medical Branch HYDROcodone 2020-0 Yes .5{tbl} Take 0.5 [facility] -acetaminop 9-01 tablets by it y of hen 7.5-325 14:04: mouth [place] mg per 34 every 4 Medical tablet (four) Branch hours. citalopram 2020-0 Yes 20mg Take 20 mg [facility] 20 mg 9-01 by mouth ity of tablet 14:04: daily. [place] 34 Medical Branch ARIPiprazol 2020-0 Yes 10mg Take 10 mg [facility] 10 mg 9-01 by mouth ity of tablet 14:04: daily. [place] [address] Medical Branch traZODone 2020-0 Yes 50mg Take 50 mg [place] 50 mg 9-01 by mouth ity of tablet 14:04: at [place] [address] bedtime. Medical Branch HYDROcodone 2020-0 Yes .5{tbl} Take 0.5 [facility] -acetaminop 9-01 tablets by it y of hen 7.5-325 14:04: mouth [place] mg per 34 every 4 Medical tablet (four) Branch hours. citalopram 2020-0 Yes 20mg Take 20 mg [facility] 20 mg 9-01 by mouth ity of tablet 14:04: daily. [address] ARIPiprazol 2020-0 Yes 10mg Take 10 mg [facility] 10 mg 9-01 by mouth ity of tablet 14:04: daily. [address] traZODone 2020-0 Yes 50mg Take 50 mg [place] 50 mg 9-01 by mouth ity of tablet 14:04: at [place] [address] bedtime. Medical Branch HYDROcodone 2020-0 Yes .5{tbl} Take 0.5 [facility] -acetaminop 9-01 tablets by it y of hen 7.5-325 14:04: mouth [place] mg per 34 every 4 Medical tablet (four) Branch hours. citalopram 2020-0 Yes 20mg Take 20 mg [facility] 20 mg 9-01 by mouth ity of tablet 14:04: daily. [address] ARIPiprazol 2020-0 Yes 10mg Take 10 mg [facility] 10 mg 9-01 by mouth ity of tablet 14:04: daily. [place] [address] Medical Branch traZODone 2020-0 Yes 50mg Take 50 mg [place] 50 mg 9-01 by mouth ity of tablet 14:04: at [place] [address] bedtime. Medical Branch HYDROcodone 2020-0 Yes .5{tbl} Take 0.5 [facility] -acetaminop 9-01 tablets by it y of hen 7.5-325 14:04: mouth [place] mg per 34 every 4 Medical tablet (four) Branch hours. citalopram 2020-0 Yes 20mg Take 20 mg [facility] 20 mg 9-01 by mouth ity of tablet 14:04: daily. [place] 34 Medical Branch ARIPiprazol 2020-0 Yes 10mg Take 10 mg [facility] e 10 mg 9-01 by mouth ity of tablet 14:04: daily. [place] [address] Medical Branch traZODone 2020-0 Yes 50mg Take 50 mg [place] 50 mg 9-01 by mouth ity of tablet 14:04: at [place] [address] bedtime. Medical Branch HYDROcodone 2020-0 Yes .5{tbl} Take 0.5 [facility] -acetaminop 9-01 tablets by it y of hen 7.5-325 14:04: mouth [place] mg per 34 every 4 Medical tablet (four) Branch hours. citalopram 2020-0 Yes 20mg Take 20 mg [facility] 20 mg 9-01 by mouth ity of tablet 14:04: daily. [address] ARIPiprazol 2020-0 Yes 10mg Take 10 mg [facility] e 10 mg 9-01 by mouth ity of tablet 14:04: daily. [address] traZODone 2020-0 Yes 50mg Take 50 mg [place] 50 mg 9-01 by mouth ity of tablet 14:04: at [place] [address] bedtime. Medical Branch HYDROcodone 2020-0 Yes .5{tbl} Take 0.5 [facility] -acetaminop 9-01 tablets by it y of hen 7.5-325 14:04: mouth [place] mg per 34 every 4 Medical tablet (four) Branch hours. citalopram 2020-0 Yes 20mg Take 20 mg [facility] 20 mg 9-01 by mouth ity of tablet 14:04: daily. [address] ARIPiprazol 2020-0 Yes 10mg Take 10 mg [facility] e 10 mg 9-01 by mouth ity of tablet 14:04: daily. [place] [address] Medical Branch traZODone 2020-0 Yes 50mg Take 50 mg [place] 50 mg 9-01 by mouth ity of tablet 14:04: at [place] [address] bedtime. Medical Branch HYDROcodone 2020-0 Yes .5{tbl} Take 0.5 [facility] -acetaminop 9-01 tablets by it y of hen 7.5-325 14:04: mouth [place] mg per 34 every 4 Medical tablet (four) Branch hours. citalopram 2020-0 Yes 20mg Take 20 mg [facility] 20 mg 9-01 by mouth ity of tablet 14:04: daily. [place] 34 Medical Branch ARIPiprazol 2020-0 Yes 10mg Take 10 mg [facility] e 10 mg 9-01 by mouth ity of tablet 14:04: daily. [place] [address] Medical Branch traZODone 2020-0 Yes 50mg Take 50 mg [place] 50 mg 9-01 by mouth ity of tablet 14:04: at [place] [address] bedtime. Medical Branch HYDROcodone 2020-0 Yes .5{tbl} Take 0.5 [facility] -acetaminop 9-01 tablets by it y of hen 7.5-325 14:04: mouth [place] mg per 34 every 4 Medical tablet (four) Branch hours. citalopram 2020-0 Yes 20mg Take 20 mg [facility] 20 mg 9-01 by mouth ity of tablet 14:04: daily. [address] Branch ARIPiprazol 2020-0 Yes 10mg Take 10 mg [facility] e 10 mg 9-01 by mouth ity of tablet 14:04: daily. [address] traZODone 2020-0 Yes 50mg Take 50 mg [place] 50 mg 9-01 by mouth ity of tablet 14:04: at [place] [address] bedtime. Medical Branch HYDROcodone 2020-0 Yes .5{tbl} Take 0.5 [facility] -acetaminop 9-01 tablets by it y of hen 7.5-325 14:04: mouth [place] mg per 34 every 4 Medical tablet (four) Branch hours. citalopram 2020-0 Yes 20mg Take 20 mg [facility] 20 mg 9-01 by mouth ity of tablet 14:04: daily. [address] ARIPiprazol 2020-0 Yes 10mg Take 10 mg [facility] 10 mg 9-01 by mouth ity of tablet 14:04: daily. [address] Branch traZODone 2020-0 Yes 50mg Take 50 mg [place] 50 mg 9-01 by mouth ity of tablet 14:04: at [place] [address] bedtime. Medical Branch citalopram 2020-0 Yes 20mg Take 20 mg [facility] 20 mg 9-01 by mouth ity of tablet 14:04: daily. [address] ARIPiprazol 2020-0 Yes 10mg Take 10 mg [facility] 10 mg 9-01 by mouth ity of tablet 14:04: daily. [address] traZODone 2020-0 Yes 50mg Take 50 mg [place] 50 mg 9-01 by mouth ity of tablet 14:04: at [place] [address] bedtime. Medical Branch citalopram 2020-0 Yes 20mg Take 20 mg [facility] 20 mg 9-01 by mouth ity of tablet 14:04: daily. [place] [address] Medical Branch ARIPiprazol 2020-0 Yes 10mg Take 10 mg [facility] 10 mg 9-01 by mouth ity of tablet 14:04: daily. [place] [address] Medical Branch traZODone 2020-0 Yes 50mg Take 50 mg [place] 50 mg 9-01 by mouth ity of tablet 14:04: at [place] [address] bedtime. Medical Branch citalopram 2020-0 Yes 20mg Take 20 mg [facility] 20 mg 9-01 by mouth ity of tablet 14:04: daily. [place] [address] Medical Branch ARIPiprazol 2020-0 Yes 10mg Take 10 mg [facility] 10 mg 9-01 by mouth ity of tablet 14:04: daily. [place] [address] Medical Branch traZODone 2019-0 Yes 50mg Take 50 mg [place] 50 mg 9-01 by mouth ity of tablet 14:04: at [place] [address] bedtime. Medical Branch sildenafiL 2019-0 Yes [id number] 25mg Take 1 [facility] (VIAGRA) 25 03-23 tablet by [facility] [place] mg tablet 00:[place]: [place] needed Medical (Erectile Branch dysfunctio n). Take 1 Tab 30 mins to 1 Hr prior to sexual encounter. Max 2 Tabs within 24H. Do not mix with alcohol or other medication s. nicotine 14 2019-0 Yes [id number] 1{patch Apply 1 [facility] mg/24 hr 9 } Patch to ity of patch 00:00: area(s) [place] 00 every 24 Medical (twenty-fo Branch ur) hours. Apply 21mg patch daily x 6 weeks, then apply 14mg patch daily x 2 weeks, then apply 7mg patch daily x 2 weeks. Stop smoking with onset of treatment. nicotine 21 2019-0 Yes [id number] 1{patch Apply 1 [facility] mg/24 hr 9- } Patch to ity of patch 00:00: area(s) [place] 00 every 24 Medical (twenty-fo Branch ur) hours. Apply 21mg patch daily x 6 weeks, then apply 14mg patch daily x 2 weeks, then apply 7mg patch daily x 2 weeks. Stop smoking with onset of treatment. nicotine 7 2019-0 Yes [id number] 1{patch Apply 1 [facility] mg/24 hr 9- } Patch to ity of patch 00:00: area(s) [place] 00 every 24 Medical (twenty-fo Branch ur) hours. Apply 21mg patch daily x 6 weeks, then apply 14mg patch daily x 2 weeks, then apply 7mg patch daily x 2 weeks. Stop smoking with onset of treatment. sildenafiL 2020-0 Yes [id number] 25mg Take 1 [facility] (VIAGRA) 25 9- tablet by ity of mg tablet 00:00: mouth [place] 00 needed Medical (Erectile Branch dysfunctio n). Take 1 Tab 30 mins to 1 Hr prior to sexual encounter. Max 2 Tabs within 24H. Do not mix with alcohol or other medication s. nicotine 14 2019-0 Yes [id number] 1{patch Apply 1 [facility] mg/24 hr 9- } Patch to ity of patch 00:00: area(s) [place] 00 every 24 Medical (twenty-fo Branch ur) hours. Apply 21mg patch daily x 6 weeks, then apply 14mg patch daily x 2 weeks, then apply 7mg patch daily x 2 weeks. Stop smoking with onset of treatment. nicotine 21 2019-0 Yes [id number] 1{patch Apply 1 [facility] mg/24 hr 9- } Patch to ity of patch 00:00: area(s) [place] 00 every 24 Medical (twenty-fo Branch ur) hours. Apply 21mg patch daily x 6 weeks, then apply 14mg patch daily x 2 weeks, then apply 7mg patch daily x 2 weeks. Stop smoking with onset of treatment. nicotine 7 2019-0 Yes [id number] 1{patch Apply 1 [facility] mg/24 hr 9- } Patch to ity of patch 00:00: area(s) [place] 00 every 24 Medical (twenty-fo Branch ur) hours. Apply 21mg patch daily x 6 weeks, then apply 14mg patch daily x 2 weeks, then apply 7mg patch daily x 2 weeks. Stop smoking with onset of treatment. sildenafiL 2020-0 Yes [id number] 25mg Take 1 [facility] (VIAGRA) 25 9-01 tablet by ity of mg tablet 00:00: mouth [place] 00 needed Medical (Erectile Branch dysfunctio n). Take 1 Tab 30 mins to 1 Hr prior to sexual encounter. Max 2 Tabs within 24H. Do not mix with alcohol or other medication s. nicotine 14 2019-0 Yes [id number] 1{patch Apply 1 [facility] mg/24 hr 9-01 } Patch to ity of patch 00:00: area(s) [place] 00 every 24 Medical (twenty-fo Branch ur) hours. Apply 21mg patch daily x 6 weeks, then apply 14mg patch daily x 2 weeks, then apply 7mg patch daily x 2 weeks. Stop smoking with onset of treatment. nicotine 21 2019-0 Yes [id number] 1{patch Apply 1 [facility] mg/24 hr 9-01 } Patch to ity of patch 00:00: area(s) [place] 00 every 24 Medical (twenty-fo Branch ur) hours. Apply 21mg patch daily x 6 weeks, then apply 14mg patch daily x 2 weeks, then apply 7mg patch daily x 2 weeks. Stop smoking with onset of treatment. nicotine 7 2019-0 Yes [id number] 1{patch Apply 1 [facility] mg/24 hr 9- } Patch to ity of patch 00:00: area(s) [place] 00 every 24 Medical (twenty-fo Branch ur) hours. Apply 21mg patch daily x 6 weeks, then apply 14mg patch daily x 2 weeks, then apply 7mg patch daily x 2 weeks. Stop smoking with onset of treatment. nicotine 14 2019-0 Yes [id number] 1{patch Apply 1 [facility] mg/24 hr 9-01 } Patch to ity of patch 00:00: area(s) [place] 00 every 24 Medical (twenty-fo Branch ur) hours. Apply 21mg patch daily x 6 weeks, then apply 14mg patch daily x 2 weeks, then apply 7mg patch daily x 2 weeks. Stop smoking with onset of treatment. nicotine 21 2019-0 Yes [id number] 1{patch Apply 1 [facility] mg/24 hr 9-01 } Patch to ity of patch 00:00: area(s) [place] 00 every 24 Medical (twenty-fo Branch ur) hours. Apply 21mg patch daily x 6 weeks, then apply 14mg patch daily x 2 weeks, then apply 7mg patch daily x 2 weeks. Stop smoking with onset of treatment. nicotine 7 2019-0 Yes [id number] 1{patch Apply 1 [facility] mg/24 hr 9-01 } Patch to ity of patch 00:00: area(s) [place] 00 every 24 Medical (twenty-fo Branch ur) hours. Apply 21mg patch daily x 6 weeks, then apply 14mg patch daily x 2 weeks, then apply 7mg patch daily x 2 weeks. Stop smoking with onset of treatment. nicotine 14 2020-0 Yes [id number] 1{patch Apply 1 [facility] mg/24 hr 9-01 } Patch to ity of patch 00:00: area(s) [place] 00 every 24 Medical (twenty-fo Branch ur) hours. Apply 21mg patch daily x 6 weeks, then apply 14mg patch daily x 2 weeks, then apply 7mg patch daily x 2 weeks. Stop smoking with onset of treatment. nicotine 21 2019-0 Yes [id number] 1{patch Apply 1 [facility] mg/24 hr 9-01 } Patch to ity of patch 00:00: area(s) [place] 00 every 24 Medical (twenty-fo Branch ur) hours. Apply 21mg patch daily x 6 weeks, then apply 14mg patch daily x 2 weeks, then apply 7mg patch daily x 2 weeks. Stop smoking with onset of treatment. nicotine 7 2019-0 Yes [id number] 1{patch Apply 1 [facility] mg/24 hr 9-01 } Patch to ity of patch 00:00: area(s) [place] 00 every 24 Medical (twenty-fo Branch ur) hours. Apply 21mg patch daily x 6 weeks, then apply 14mg patch daily x 2 weeks, then apply 7mg patch daily x 2 weeks. Stop smoking with onset of treatment. nicotine 14 2019-0 Yes [id number] 1{patch Apply 1 [facility] mg/24 hr 9-01 } Patch to ity of patch 00:00: area(s) [place] 00 every 24 Medical (twenty-fo Branch ur) hours. Apply 21mg patch daily x 6 weeks, then apply 14mg patch daily x 2 weeks, then apply 7mg patch daily x 2 weeks. Stop smoking with onset of treatment. nicotine 21 2020-0 Yes [id number] 1{patch Apply 1 [facility] mg/24 hr 9-01 } Patch to ity of patch 00:00: area(s) [place] 00 every 24 Medical (twenty-fo Branch ur) hours. Apply 21mg patch daily x 6 weeks, then apply 14mg patch daily x 2 weeks, then apply 7mg patch daily x 2 weeks. Stop smoking with onset of treatment. nicotine 7 2019-0 Yes [id number] 1{patch Apply 1 [facility] mg/24 hr 9-01 } Patch to ity of patch 00:00: area(s) [place] 00 every 24 Medical (twenty-fo Branch ur) hours. Apply 21mg patch daily x 6 weeks, then apply 14mg patch daily x 2 weeks, then apply 7mg patch daily x 2 weeks. Stop smoking with onset of treatment. nicotine 14 2019-0 Yes [id number] 1{patch Apply 1 [facility] mg/24 hr 9-01 } Patch to ity of patch 00:00: area(s) [place] 00 every 24 Medical (twenty-fo Branch ur) hours. Apply 21mg patch daily x 6 weeks, then apply 14mg patch daily x 2 weeks, then apply 7mg patch daily x 2 weeks. Stop smoking with onset of treatment. nicotine 21 2019-0 Yes [id number] 1{patch Apply 1 [facility] mg/24 hr 9-01 } Patch to ity of patch 00:00: area(s) [place] 00 every 24 Medical (twenty-fo Branch ur) hours. Apply 21mg patch daily x 6 weeks, then apply 14mg patch daily x 2 weeks, then apply 7mg patch daily x 2 weeks. Stop smoking with onset of treatment. nicotine 7 2019-0 Yes [id number] 1{patch Apply 1 [facility] mg/24 hr 9-01 } Patch to ity of patch 00:00: area(s) [place] 00 every 24 Medical (twenty-fo Branch ur) hours. Apply 21mg patch daily x 6 weeks, then apply 14mg patch daily x 2 weeks, then apply 7mg patch daily x 2 weeks. Stop smoking with onset of treatment. nicotine 14 2019-0 Yes [id number] 1{patch Apply 1 [facility] mg/24 hr 9-01 } Patch to ity of patch 00:00: area(s) [place] 00 every 24 Medical (twenty-fo Branch ur) hours. Apply 21mg patch daily x 6 weeks, then apply 14mg patch daily x 2 weeks, then apply 7mg patch daily x 2 weeks. Stop smoking with onset of treatment. nicotine 21 2019-0 Yes [id number] 1{patch Apply 1 [facility] mg/24 hr 9-01 } Patch to ity of patch 00:00: area(s) [place] 00 every 24 Medical (twenty-fo Branch ur) hours. Apply 21mg patch daily x 6 weeks, then apply 14mg patch daily x 2 weeks, then apply 7mg patch daily x 2 weeks. Stop smoking with onset of treatment. nicotine 7 2019-0 Yes [id number] 1{patch Apply 1 [facility] mg/24 hr 9-01 } Patch to ity of patch 00:00: area(s) [place] 00 every 24 Medical (twenty-fo Branch ur) hours. Apply 21mg patch daily x 6 weeks, then apply 14mg patch daily x 2 weeks, then apply 7mg patch daily x 2 weeks. Stop smoking with onset of treatment. nicotine 14 2019-0 Yes [id number] 1{patch Apply 1 [facility] mg/24 hr 9-01 } Patch to ity of patch 00:00: area(s) [place] 00 every 24 Medical (twenty-fo Branch ur) hours. Apply 21mg patch daily x 6 weeks, then apply 14mg patch daily x 2 weeks, then apply 7mg patch daily x 2 weeks. Stop smoking with onset of treatment. nicotine 21 2019-0 Yes [id number] 1{patch Apply 1 [facility] mg/24 hr 9-01 } Patch to ity of patch 00:00: area(s) [place] 00 every 24 Medical (twenty-fo Branch ur) hours. Apply 21mg patch daily x 6 weeks, then apply 14mg patch daily x 2 weeks, then apply 7mg patch daily x 2 weeks. Stop smoking with onset of treatment. nicotine 7 2019- Yes [id number] 1{patch Apply 1 [facility] mg/24 hr 9-01 } Patch to ity of patch 00:00: area(s) [place] 00 every 24 Medical (twenty-fo Branch ur) hours. Apply 21mg patch daily x 6 weeks, then apply 14mg patch daily x 2 weeks, then apply 7mg patch daily x 2 weeks. Stop smoking with onset of treatment. nicotine 14 2019-0 Yes [id number] 1{patch Apply 1 [facility] mg/24 hr 9-01 } Patch to ity of patch 00:00: area(s) [place] 00 every 24 Medical (twenty-fo Branch ur) hours. Apply 21mg patch daily x 6 weeks, then apply 14mg patch daily x 2 weeks, then apply 7mg patch daily x 2 weeks. Stop smoking with onset of treatment. nicotine 21 2019-0 Yes [id number] 1{patch Apply 1 [facility] mg/24 hr 9-01 } Patch to ity of patch 00:00: area(s) [place] 00 every 24 Medical (twenty-fo Branch ur) hours. Apply 21mg patch daily x 6 weeks, then apply 14mg patch daily x 2 weeks, then apply 7mg patch daily x 2 weeks. Stop smoking with onset of treatment. nicotine 7 2019-0 Yes [id number] 1{patch Apply 1 [facility] mg/24 hr 9-01 } Patch to ity of patch 00:00: area(s) [place] 00 every 24 Medical (twenty-fo Branch ur) hours. Apply 21mg patch daily x 6 weeks, then apply 14mg patch daily x 2 weeks, then apply 7mg patch daily x 2 weeks. Stop smoking with onset of treatment. nicotine 14 2019-0 Yes [id number] 1{patch Apply 1 [facility] mg/24 hr 9-01 } Patch to ity of patch 00:00: area(s) [place] 00 every 24 Medical (twenty-fo Branch ur) hours. Apply 21mg patch daily x 6 weeks, then apply 14mg patch daily x 2 weeks, then apply 7mg patch daily x 2 weeks. Stop smoking with onset of treatment. nicotine 21 2019-0 Yes [id number] 1{patch Apply 1 [facility] mg/24 hr 9-01 } Patch to ity of patch 00:00: area(s) [place] 00 every 24 Medical (twenty-fo Branch ur) hours. Apply 21mg patch daily x 6 weeks, then apply 14mg patch daily x 2 weeks, then apply 7mg patch daily x 2 weeks. Stop smoking with onset of treatment. nicotine 7 2019-0 Yes [id number] 1{patch Apply 1 [facility] mg/24 hr 9-01 } Patch to ity of patch 00:00: area(s) [place] 00 every 24 Medical (twenty-fo Branch ur) hours. Apply 21mg patch daily x 6 weeks, then apply 14mg patch daily x 2 weeks, then apply 7mg patch daily x 2 weeks. Stop smoking with onset of treatment. nicotine 14 2019-0 Yes [id number] 1{patch Apply 1 [facility] mg/24 hr 9-01 } Patch to ity of patch 00:00: area(s) [place] 00 every 24 Medical (twenty-fo Branch ur) hours. Apply 21mg patch daily x 6 weeks, then apply 14mg patch daily x 2 weeks, then apply 7mg patch daily x 2 weeks. Stop smoking with onset of treatment. nicotine 21 2019-0 Yes [id number] 1{patch Apply 1 [facility] mg/24 hr 9-01 } Patch to ity of patch 00:00: area(s) [place] 00 every 24 Medical (twenty-fo Branch ur) hours. Apply 21mg patch daily x 6 weeks, then apply 14mg patch daily x 2 weeks, then apply 7mg patch daily x 2 weeks. Stop smoking with onset of treatment. nicotine 7 2019-0 Yes [id number] 1{patch Apply 1 [facility] mg/24 hr 9-01 } Patch to ity of patch 00:00: area(s) [place] 00 every 24 Medical (twenty-fo Branch ur) hours. Apply 21mg patch daily x 6 weeks, then apply 14mg patch daily x 2 weeks, then apply 7mg patch daily x 2 weeks. Stop smoking with onset of treatment. nicotine 14 2019-0 Yes [id number] 1{patch Apply 1 [facility] mg/24 hr 9-01 } Patch to ity of patch 00:00: area(s) [place] 00 every 24 Medical (twenty-fo Branch ur) hours. Apply 21mg patch daily x 6 weeks, then apply 14mg patch daily x 2 weeks, then apply 7mg patch daily x 2 weeks. Stop smoking with onset of treatment. nicotine 21 2019-0 Yes [id number] 1{patch Apply 1 [facility] mg/24 hr 9-01 } Patch to ity of patch 00:00: area(s) [place] 00 every 24 Medical (twenty-fo Branch ur) hours. Apply 21mg patch daily x 6 weeks, then apply 14mg patch daily x 2 weeks, then apply 7mg patch daily x 2 weeks. Stop smoking with onset of treatment. nicotine 7 2019-0 Yes [id number] 1{patch Apply 1 [facility] mg/24 hr 9-01 } Patch to ity of patch 00:00: area(s) [place] 00 every 24 Medical (twenty-fo Branch ur) hours. Apply 21mg patch daily x 6 weeks, then apply 14mg patch daily x 2 weeks, then apply 7mg patch daily x 2 weeks. Stop smoking with onset of treatment. nicotine 14 2020-0 Yes [id number] 1{patch Apply 1 [facility] mg/24 hr 9-01 } Patch to ity of patch 00:00: area(s) [place] 00 every 24 Medical (twenty-fo Branch ur) hours. Apply 21mg patch daily x 6 weeks, then apply 14mg patch daily x 2 weeks, then apply 7mg patch daily x 2 weeks. Stop smoking with onset of treatment. nicotine 21 2019- Yes [id number] 1{patch Apply 1 [facility] mg/24 hr 9- } Patch to ity of patch 00:00: area(s) [place] 00 every 24 Medical (twenty-fo Branch ur) hours. Apply 21mg patch daily x 6 weeks, then apply 14mg patch daily x 2 weeks, then apply 7mg patch daily x 2 weeks. Stop smoking with onset of treatment. nicotine 7 2019- Yes [id number] 1{patch Apply 1 [facility] mg/24 hr 03-23 } Patch to ity of patch 00:00: area(s) [place] 00 every 24 Medical (twenty-fo Branch ur) hours. Apply 21mg patch daily x 6 weeks, then apply 14mg patch daily x 2 weeks, then apply 7mg patch daily x 2 weeks. Stop smoking with onset of treatment. nicotine 14 2020- No [id number] 1{patch Apply 1 [facility] mg/24 hr 03-23 } Patch to ity of patch 00:00: 00:00 area(s) [place] 00 :00 every 24 Medical (twenty-fo Branch ur) hours. Apply 21mg patch daily x 6 weeks, then apply 14mg patch daily x 2 weeks, then apply 7mg patch daily x 2 weeks. Stop smoking with onset of treatment. nicotine 21 2020- No [id number] 1{patch Apply 1 [facility] mg/24 hr 03-23 } Patch to ity of patch 00:00: 00:00 area(s) [place] 00 :00 every 24 Medical (twenty-fo Branch ur) hours. Apply 21mg patch daily x 6 weeks, then apply 14mg patch daily x 2 weeks, then apply 7mg patch daily x 2 weeks. Stop smoking with onset of treatment. nicotine 7 2020- No [id number] 1{patch Apply 1 [facility] mg/24 hr 03-23 } Patch to ity of patch 00:00: 00:00 area(s) [place] 00 :00 every 24 Medical (twenty-fo Branch ur) hours. Apply 21mg patch daily x 6 weeks, then apply 14mg patch daily x 2 weeks, then apply 7mg patch daily x 2 weeks. Stop smoking with onset of treatment. nicotine 14 2020- No [id number] 1{patch Apply 1 [facility] mg/24 hr 03-23 } Patch to ity of patch 00:00: 00:00 area(s) [place] 00 :00 every 24 Medical (twenty-fo Branch ur) hours. Apply 21mg patch daily x 6 weeks, then apply 14mg patch daily x 2 weeks, then apply 7mg patch daily x 2 weeks. Stop smoking with onset of treatment. nicotine 21 2020- No [id number] 1{patch Apply 1 [facility] mg/24 hr 03-23 } Patch to ity of patch 00:00: 00:00 area(s) [place] 00 :00 every 24 Medical (twenty-fo Branch ur) hours. Apply 21mg patch daily x 6 weeks, then apply 14mg patch daily x 2 weeks, then apply 7mg patch daily x 2 weeks. Stop smoking with onset of treatment. nicotine 7 2020- No [id number] 1{patch Apply 1 [facility] mg/24 hr 03-23 } Patch to ity of patch 00:00: 00:00 area(s) [place] 00 :00 every 24 Medical (twenty-fo Branch ur) hours. Apply 21mg patch daily x 6 weeks, then apply 14mg patch daily x 2 weeks, then apply 7mg patch daily x 2 weeks. Stop smoking with onset of treatment. sildenafiL 2019-2019- No [id number] 25mg Take 1 [facility] (VIAGRA) 25 03-23 tablet by it y of mg tablet 00:00: 00:00 mouth [place] 00 :00 needed Medical (Erectile Branch dysfunctio n). Take 1 Tab 30 mins to 1 Hr prior to sexual encounter. Max 2 Tabs within 24H. Do not mix with alcohol or other medication s. sildenafiL 2020-0 2020- No [id number] 25mg Take 1 [facility] (VIAGRA) 25 03-23 tablet by it y of mg tablet 00:00: 00:00 mouth as [place] 00 :00 needed Medical (Erectile Branch dysfunctio n). Take 1 Tab 30 mins to 1 Hr prior to sexual encounter. Max 2 Tabs within 24H. Do not mix with alcohol or other medication s. sildenafiL 2020-0 2019- No [id number] 25mg Take 1 [facility] (VIAGRA) 25 03-23 tablet by it y of mg tablet 00:00: 00:00 mouth as [place] 00 :00 needed Medical (Erectile Branch dysfunctio n). Take 1 Tab 30 mins to 1 Hr prior to sexual encounter. Max 2 Tabs within 24H. Do not mix with alcohol or other medication s. nicotine 14 2020- No [id number] 1{patch Apply 1 [facility] mg/24 hr 03-23 } Patch to ity of patch 00:00: 00:00 [facility] [place] 00 :00 every 24 Medical (twenty-fo Branch ur) hours. nicotine 21 2020- No [id number] 1{patch Apply 1 [facility] mg/24 hr 03-23 } Patch to ity of patch 00:00: 00:00 [facility] [place] 00 :00 every 24 Medical (twenty-fo Branch ur) hours. nicotine 7 2020- No [id number] 1{patch Apply 1 [facility] mg/24 hr 03-23 } Patch to ity of patch 00:00: 00:00 [facility] [place] 00 :00 every 24 Medical (twenty-fo Branch ur) hours. nicotine 14 2019- No [id number] 1{patch Apply 1 [facility] mg/24 hr 03-23 } Patch to ity of patch 00:00: 00:00 [facility] [place] 00 :00 every 24 Medical (twenty-fo Branch ur) hours. nicotine 21 2019- No [id number] 1{patch Apply 1 [facility] mg/24 hr 03-23 } Patch to ity of patch 00:00: 00:00 [facility] [place] 00 :00 every 24 Medical (twenty-fo Branch ur) hours. nicotine 7 2019- No [id number] 1{patch Apply 1 [facility] mg/24 hr 03-23 } Patch to ity of patch 00:00: 00:00 [facility] [place] 00 :00 every 24 Medical (twenty-fo Branch ur) hours. HYDROcodone 2020-0 Yes .5{tbl} Take 0.5 [facility] -acetaminop 8-13 tablets by it y of hen 7.5-325 16:51: mouth [place] mg per 07 every 4 Medical tablet (four) Branch hours. citalopram 2019- Yes 20mg Take 20 mg U nivers 20 mg 8-13 by mouth ity of tablet 16:51: daily. [place] [address] Medical Branch ARIPiprazol 2020-0 Yes 10mg Take 10 mg [facility] e 10 mg 8-13 by mouth ity of tablet 16:51: daily. [place] [address] Medical Branch traZODone 2020-0 Yes 50mg Take 50 mg [place] 50 mg 8-13 by mouth ity of tablet 16:51: at [place] [address] bedtime. Medical Branch HYDROcodone 2020-0 Yes .5{tbl} Take 0.5 [facility] -acetaminop 8-13 tablets by it y of hen 7.5-325 16:51: mouth [place] mg per 07 every 4 Medical tablet (four) Branch hours. citalopram 2020-0 Yes 20mg Take 20 mg U nivers 20 mg 8-13 by mouth ity of tablet 16:51: daily. [address] ARIPiprazol 2020-0 Yes 10mg Take 10 mg [facility] e 10 mg 8-13 by mouth ity of tablet 16:51: daily. [place] [address] Medical Branch traZODone 2020-0 Yes 50mg Take 50 mg [place] 50 mg 8-13 by mouth ity of tablet 16:51: at [place] [address] bedtime. Medical Branch HYDROcodone 2020-0 Yes .5{tbl} Take 0.5 [facility] -acetaminop 8-13 tablets by it y of hen 7.5-325 16:51: mouth [place] mg per 07 every 4 Medical tablet (four) Branch hours. citalopram 2020-0 Yes 20mg Take 20 mg U nivers 20 mg 8-13 by mouth ity of tablet 16:51: daily. [place] [address] Medical Branch ARIPiprazol 2020-0 Yes 10mg Take 10 mg [facility] e 10 mg 8-13 by mouth ity of tablet 16:51: daily. [place] [address] Medical Branch traZODone 2020-0 Yes 50mg Take 50 mg [place] 50 mg 8-13 by mouth ity of tablet 16:51: at [place] [address] bedtime. Medical Branch metoprolol 2020-0 Yes 25mg [...] [place] tablet 43 [facility] lisinopril 2020-0 Yes [id number] 40mg Take 1 U nivers 40 mg 8-04 tablet by ity of tablet 00:00: mouth [place] 00 daily. Medical Branch hydroCHLORO 2020-0 Yes [id number] 25mg Take 1 [facility] thiazide 25 8-04 tablet by ity of mg tablet 00:00: mouth [place] 00 daily. Medical Branch lisinopril 2020-0 Yes [id number] 40mg Take 1 U nivers 40 mg 8-04 tablet by ity of tablet 00:00: mouth [place] 00 daily. Medical Branch hydroCHLORO 2020-0 Yes [id number] 25mg Take 1 [facility] thiazide 25 8-04 tablet by ity of mg tablet 00:00: mouth [place] 00 daily. Medical Branch lisinopril 2020-0 Yes [id number] 40mg Take 1 U nivers 40 mg 8-04 tablet by ity of tablet 00:00: mouth [place] 00 daily. Medical Branch hydroCHLORO 2020-0 Yes [id number] 25mg Take 1 [facility] thiazide 25 8-04 tablet by ity of mg tablet 00:00: mouth [place] 00 daily. Medical Branch lisinopril 2020-0 Yes [id number] 40mg Take 1 U nivers 40 mg 8-04 tablet by ity of tablet 00:00: mouth [place] 00 daily. Medical Branch hydroCHLORO 2020-0 Yes [id number] 25mg Take 1 [facility] thiazide 25 8-04 tablet by ity of mg tablet 00:00: mouth [place] 00 daily. Medical Branch lisinopril 2020-0 Yes [id number] 40mg Take 1 U nivers 40 mg 8-04 tablet by ity of tablet 00:00: mouth [place] 00 daily. Medical Branch hydroCHLORO 2020-0 Yes [id number] 25mg Take 1 [facility] thiazide 25 8-04 tablet by ity of mg tablet 00:00: mouth [place] 00 daily. Medical Branch lisinopril 2020-0 Yes [id number] 40mg Take 1 U nivers 40 mg 8-04 tablet by ity of tablet 00:00: mouth [place] 00 daily. Medical Branch hydroCHLORO 2020-0 Yes [id number] 25mg Take 1 [facility] thiazide 25 8-04 tablet by ity of mg tablet 00:00: mouth [place] 00 daily. Medical Branch lisinopril 2020-0 Yes [id number] 40mg Take 1 U nivers 40 mg 8-04 tablet by ity of tablet 00:00: mouth [place] 00 daily. [facility] Branch hydroCHLORO 2020-0 Yes [id number] 25mg Take 1 [facility] thiazide 25 8-04 tablet by ity of mg tablet 00:00: mouth [place] 00 daily. [facility] Branch lisinopril 2020-0 Yes [id number] 40mg Take 1 U nivers 40 mg 8-04 tablet by ity of tablet 00:00: mouth [place] 00 daily. Medical Branch hydroCHLORO 2020-0 Yes [id number] 25mg Take 1 [facility] thiazide 25 8-04 tablet by ity of mg tablet 00:00: mouth [place] 00 daily. Medical Branch lisinopril 2020-0 Yes [id number] 40mg Take 1 U nivers 40 mg 8-04 tablet by ity of tablet 00:00: mouth [place] 00 daily. [facility] Branch hydroCHLORO 2020-0 Yes [id number] 25mg Take 1 [facility] thiazide 25 8-04 tablet by ity of mg tablet 00:00: mouth [place] 00 daily. [facility] Branch lisinopril 2020-0 Yes [id number] 40mg Take 1 U nivers 40 mg 8-04 tablet by ity of tablet 00:00: mouth [place] 00 daily. [facility] Branch hydroCHLORO 2020-0 Yes [id number] 25mg Take 1 [facility] thiazide 25 8-04 tablet by ity of mg tablet 00:00: mouth [place] 00 daily. [facility] Branch lisinopril 2020-0 Yes [id number] 40mg Take 1 U nivers 40 mg 8-04 tablet by ity of tablet 00:00: mouth [place] 00 daily. [facility] Branch hydroCHLORO 2020-0 Yes [id number] 25mg Take 1 [facility] thiazide 25 8-04 tablet by ity of mg tablet 00:00: mouth [place] 00 daily. Medical Branch lisinopril 2020-0 Yes [id number] 40mg Take 1 U nivers 40 mg 8-04 tablet by ity of tablet 00:00: mouth [place] 00 daily. Medical Branch hydroCHLORO 2020-0 Yes [id number] 25mg Take 1 [facility] thiazide 25 8-04 tablet by ity of mg tablet 00:00: mouth [place] 00 daily. Medical Branch lisinopril 2020-0 Yes [id number] 40mg Take 1 U nivers 40 mg 8-04 tablet by ity of tablet 00:00: mouth [place] 00 daily. Medical Branch hydroCHLORO 2020-0 Yes [id number] 25mg Take 1 [facility] thiazide 25 8-04 tablet by ity of mg tablet 00:00: mouth [place] 00 daily. [facility] Branch lisinopril 2020-0 Yes [id number] 40mg Take 1 U nivers 40 mg 8-04 tablet by ity of tablet 00:00: mouth [place] 00 daily. Medical Branch hydroCHLORO 2020-0 Yes [id number] 25mg Take 1 [facility] thiazide 25 8-04 tablet by ity of mg tablet 00:00: mouth [place] 00 daily. Medical Branch lisinopril 2020-0 Yes [id number] 40mg Take 1 U nivers 40 mg 8-04 tablet by ity of tablet 00:00: mouth [place] 00 daily. Medical Branch hydroCHLORO 2020-0 Yes [id number] 25mg Take 1 [facility] thiazide 25 8-04 tablet by ity of mg tablet 00:00: mouth [place] 00 daily. [facility] Branch lisinopril 2020-0 Yes [id number] 40mg Take 1 U nivers 40 mg 8-04 tablet by ity of tablet 00:00: mouth [place] 00 daily. Medical Branch hydroCHLORO 2020-0 Yes [id number] 25mg Take 1 [facility] thiazide 25 8-04 tablet by ity of mg tablet 00:00: mouth [place] 00 daily. Medical Branch lisinopril 2020-0 Yes [id number] 40mg Take 1 U nivers 40 mg 8-04 tablet by ity of tablet 00:00: mouth [place] 00 daily. [facility] Branch hydroCHLORO 2020-0 Yes [id number] 25mg Take 1 [facility] thiazide 25 8-04 tablet by ity of mg tablet 00:00: mouth [place] 00 daily. [facility] Branch lisinopril 2020-0 Yes [id number] 40mg Take 1 U nivers 40 mg 8-04 tablet by ity of tablet 00:00: mouth [place] 00 daily. Medical Branch hydroCHLORO 2020-0 Yes [id number] 25mg Take 1 [facility] thiazide 25 8-04 tablet by ity of mg tablet 00:00: mouth [place] 00 daily. Medical Branch lisinopril 2020-0 2020- No [id number] 40mg Take 1 [facility] 40 mg 8-04 04-28 tablet by ity of tablet 00:00: 00:00 mouth [place] 00 :00 daily. Medical Branch hydroCHLORO 2020-0 2020- No [id number] 25mg Take 1 [facility] thiazide 25 8-04 04-28 tablet by it y of mg tablet 00:00: 00:00 mouth [place] 00 :00 daily. Medical Branch lisinopril 2019-0 2020- No [id number] 40mg Take 1 [facility] 40 mg 8-04 04-28 tablet by ity of tablet 00:00: 00:00 mouth [place] 00 :00 daily. Medical Branch hydroCHLORO 2019-0 2020- No [id number] 25mg Take 1 [facility] thiazide 25 8-04 04-28 tablet by it y of mg tablet 00:00: 00:00 mouth [place] 00 :00 daily. Medical Branch PREDNISONE 2020-0 2020- No 20mg Take 20 mg [facility] ORAL 7-30 07-30 by mouth ity of 21:18: 00:00 daily. [place] 54 :00 Indication Medical s: pt Branch takes this med at hs PREDNISONE 2020-0 2020- No 20mg Take 20 mg [facility] ORAL 7-30 07-30 by mouth ity of 21:18: 00:00 daily. [place] 54 :00 Indication Medical s: pt Branch [...] tablet 50 Medical Branch meclizine 2020-0 Yes [id number] 12.5mg Take 1 [facility] 12.5 mg 7-30 tablet by ity of tablet 00:00: mouth 3 (three) Medical times Branch daily as needed for Dizziness. meclizine 2020-0 Yes [id number] 12.5mg Take 1 [facility] 12.5 mg 7-30 tablet by ity of tablet 00:00: mouth 3 (three) Medical times Branch daily as needed for Dizziness. meclizine 2020-0 Yes [id number] 12.5mg Take 1 [facility] 12.5 mg 7-30 tablet by ity of tablet 00:00: mouth 3 (three) Medical times Branch daily as needed for Dizziness. meclizine 2020-0 Yes [id number] 12.5mg Take 1 [facility] 12.5 mg 7-30 tablet by ity of tablet 00:00: mouth 3 (three) Medical times Branch daily as needed for Dizziness. meclizine 2020-0 Yes [id number] 12.5mg Take 1 [facility] 12.5 mg 7-30 tablet by ity of tablet 00:00: mouth 3 (three) Medical times Branch daily as needed for Dizziness. meclizine 2020-0 Yes [id number] 12.5mg Take 1 [facility] 12.5 mg 7-30 tablet by ity of tablet 00:00: mouth (three) Medical times Branch daily as needed for Dizziness. meclizine 2020-0 Yes [id number] 12.5mg Take 1 [facility] 12.5 mg 7-30 tablet by ity of tablet 00:00: mouth (three) Medical times Branch daily as needed for Dizziness. meclizine 2020-0 Yes [id number] 12.5mg Take 1 [facility] 12.5 mg 7-30 tablet by ity of tablet 00:00: mouth (three) Medical times Branch daily as needed for Dizziness. meclizine 2020-0 Yes [id number] 12.5mg Take 1 [facility] 12.5 mg 7-30 tablet by ity of tablet 00:00: mouth (three) Medical times Branch daily as needed for Dizziness. meclizine 2020-0 Yes [id number] 12.5mg Take 1 [facility] 12.5 mg 7-30 tablet by ity of tablet 00:00: mouth (three) Medical times Branch daily as needed for Dizziness. meclizine 2020-0 Yes [id number] 12.5mg Take 1 [facility] 12.5 mg 7-30 tablet by ity of tablet 00:00: mouth (three) Medical times Branch daily as needed for Dizziness. meclizine 2020-0 Yes [id number] 12.5mg Take 1 [facility] 12.5 mg 7-30 tablet by ity of tablet 00:00: mouth (three) Medical times Branch daily as needed for Dizziness. meclizine 2020-0 Yes [id number] 12.5mg Take 1 [facility] 12.5 mg 7-30 tablet by ity of tablet 00:00: mouth (three) Medical times Branch daily as needed for Dizziness. meclizine 2020-0 Yes [id number] 12.5mg Take 1 [facility] 12.5 mg 7-30 tablet by ity of tablet 00:00: mouth (three) Medical times Branch daily as needed for Dizziness. meclizine 2020-0 Yes [id number] 12.5mg Take 1 [facility] 12.5 mg 7-30 tablet by ity of tablet 00:00: mouth (three) Medical times Branch daily as needed for Dizziness. meclizine 2020-0 Yes [id number] 12.5mg Take 1 [facility] 12.5 mg 7-30 tablet by ity of tablet 00:00: mouth 3 (three) Medical times Branch daily as needed for Dizziness. meclizine 2020-0 Yes [id number] 12.5mg Take 1 [facility] 12.5 mg 7-30 tablet by ity of tablet 00:00: mouth (three) Medical times Branch daily as needed for Dizziness. meclizine 2020-0 Yes [id number] 12.5mg Take 1 [facility] 12.5 mg 7-30 tablet by ity of tablet 00:00: mouth (three) Medical times Branch daily as needed for Dizziness. meclizine 2020-0 Yes [id number] 12.5mg Take 1 [facility] 12.5 mg 7-30 tablet by ity of tablet 00:00: mouth (three) Medical times Branch daily as needed for Dizziness. meclizine 2020-0 Yes [id number] 12.5mg Take 1 [facility] 12.5 mg 7-30 tablet by ity of tablet 00:00: mouth (three) Medical times Branch daily as needed for Dizziness. meclizine 2020-0 Yes [id number] 12.5mg Take 1 [facility] 12.5 mg 7-30 tablet by ity of tablet 00:00: mouth (three) Medical times Branch daily as needed for Dizziness. meclizine 2020-0 Yes [id number] 12.5mg Take 1 [facility] 12.5 mg 7-30 tablet by ity of tablet 00:00: mouth (three) Medical times Branch daily as needed for Dizziness. meclizine 2020-0 Yes [id number] 12.5mg Take 1 [facility] 12.5 mg 7-30 tablet by ity of tablet 00:00: mouth (three) Medical times Branch daily as needed for Dizziness. meclizine 2020-0 Yes [id number] 12.5mg Take 1 [facility] 12.5 mg 7-30 tablet by ity of tablet 00:00: mouth 3 (three) Medical times Branch daily as needed for Dizziness. meclizine 2020-0 Yes [id number] 12.5mg Take 1 [facility] 12.5 mg 7-30 tablet by ity of tablet 00:00: mouth (three) Medical times Branch daily as needed for Dizziness. meclizine 2020-0 Yes [id number] 12.5mg Take 1 [facility] 12.5 mg 7-30 tablet by ity of tablet 00:00: mouth (three) Medical times Branch daily as needed for Dizziness. meclizine 2020-0 Yes [id number] 12.5mg Take 1 [facility] 12.5 mg 7-30 tablet by ity of tablet 00:00: mouth (three) Medical times Branch daily as needed for Dizziness. meclizine 2020-0 Yes [id number] 12.5mg Take 1 [facility] 12.5 mg 7-30 tablet by ity of tablet 00:00: mouth (three) Medical times Branch daily as needed for Dizziness. meclizine 2020-0 Yes [id number] 12.5mg Take 1 [facility] 12.5 mg 7-30 tablet by ity of tablet 00:00: mouth (three) Medical times Branch daily as needed for Dizziness. meclizine 2020-0 Yes [id number] 12.5mg Take 1 [facility] 12.5 mg 7-30 tablet by ity of tablet 00:00: mouth (three) Medical times Branch daily as needed for Dizziness. meclizine 2020-0 Yes [id number] 12.5mg Take 1 [facility] 12.5 mg 7-30 tablet by ity of tablet 00:00: mouth (three) Medical times Branch daily as needed for Dizziness. meclizine 2020-0 Yes [id number] 12.5mg Take 1 [facility] 12.5 mg 7-30 tablet by ity of tablet 00:00: mouth (three) Medical times Branch daily as needed for Dizziness. meclizine 2020-0 Yes [id number] 12.5mg Take 1 [facility] 12.5 mg 7-30 tablet by ity of tablet 00:00: mouth (three) Medical times Branch daily as needed for Dizziness. meclizine 2020-0 Yes [id number] 12.5mg Take 1 [facility] 12.5 mg 7-30 tablet by ity of tablet 00:00: mouth (three) Medical times Branch daily as needed for Dizziness. meclizine 2020-0 Yes [id number] 12.5mg Take 1 [facility] 12.5 mg 7-30 tablet by ity of tablet 00:00: mouth 3 (three) Medical times Branch daily as needed for Dizziness. meclizine 2020-0 Yes [id number] 12.5mg Take 1 [facility] 12.5 mg 7-30 tablet by ity of tablet 00:00: mouth 3 (three) Medical times Branch daily as needed for Dizziness. meclizine 2020-0 Yes [id number] 12.5mg Take 1 [facility] 12.5 mg 7-30 tablet by ity of tablet 00:00: mouth (three) Medical times Branch daily as needed for Dizziness. meclizine 2020-0 Yes [id number] 12.5mg Take 1 [facility] 12.5 mg 7-30 tablet by ity of tablet 00:00: mouth (three) Medical times Branch daily as needed for Dizziness. meclizine 2020-0 Yes [id number] 12.5mg Take 1 [facility] 12.5 mg 7-30 tablet by ity of tablet 00:00: mouth (three) Medical times Branch daily as needed for Dizziness. meclizine 2020-0 Yes [id number] 12.5mg Take 1 [facility] 12.5 mg 7-30 tablet by ity of tablet 00:00: mouth (three) Medical times Branch daily as needed for Dizziness. meclizine 2020-0 Yes [id number] 12.5mg Take 1 [facility] 12.5 mg 7-30 tablet by ity of tablet 00:00: mouth (three) Medical times Branch daily as needed for Dizziness. meclizine 2020-0 Yes [id number] 12.5mg Take 1 [facility] 12.5 mg 7-30 tablet by ity of tablet 00:00: mouth (three) Medical times Branch daily as needed for Dizziness. meclizine 2020-0 Yes [id number] 12.5mg Take 1 [facility] 12.5 mg 7-30 tablet by ity of tablet 00:00: mouth 3 (three) Medical times Branch daily as needed for Dizziness. meclizine 2020-0 Yes [id number] 12.5mg Take 1 [facility] 12.5 mg 7-30 tablet by ity of tablet 00:00: mouth 3 [place] 00 (three) Medical times Branch daily as needed for Dizziness. meclizine 2020-0 Yes [id number] 12.5mg Take 1 [facility] 12.5 mg 7-30 tablet by ity of tablet 00:00: mouth (three) Medical times Branch daily as needed for Dizziness. meclizine 2020-0 Yes [id number] 12.5mg Take 1 [facility] 12.5 mg 7-30 tablet by ity of tablet 00:00: mouth (three) Medical times Branch daily as needed for Dizziness. meclizine 2020-0 Yes [id number] 12.5mg Take 1 [facility] 12.5 mg 7-30 tablet by ity of tablet 00:00: mouth (three) Medical times Branch daily as needed for Dizziness. esomeprazol 2020-0 2020- No 40mg Take 40 mg Univers e magnesium 7-24 07-24 by mouth. it y of (NEXIUM 20:59: 00:00 [place] 24HR) 20 mg 17 :00 Medical [facility] Branch OMEPRAZOLE 2020-0 Yes [id number] TAKE 1 Univers 40 mg 7-24 CAPSULE BY ity of capsule 00:00: MOUTH [place] 00 EVERY DAY Medical Branch OMEPRAZOLE 2020-0 Yes [id number] TAKE 1 Univers 40 mg 7-24 CAPSULE BY ity of capsule 00:00: MOUTH [place] 00 EVERY DAY Medical Branch OMEPRAZOLE 2020-0 Yes [id number] TAKE 1 Univers 40 mg 7-24 CAPSULE BY ity of capsule 00:00: MOUTH [place] 00 EVERY DAY Medical Branch OMEPRAZOLE 2020-0 Yes [id number] TAKE 1 Univers 40 mg 7-24 CAPSULE BY ity of capsule 00:00: MOUTH [place] 00 EVERY DAY Medical Branch OMEPRAZOLE 2020-0 Yes [id number] TAKE 1 Univers 40 mg 7-24 CAPSULE BY ity of capsule 00:00: MOUTH [place] 00 EVERY DAY Medical Branch OMEPRAZOLE 2020-0 Yes [id number] TAKE 1 Univers 40 mg 7-24 CAPSULE BY ity of capsule 00:00: MOUTH [place] 00 EVERY DAY Medical Branch OMEPRAZOLE 2020-0 Yes [id number] TAKE 1 Univers 40 mg 7-24 CAPSULE BY ity of capsule 00:00: MOUTH [place] 00 EVERY DAY Medical Branch OMEPRAZOLE 2020-0 Yes [id number] TAKE 1 Univers 40 mg 7-24 CAPSULE BY ity of capsule 00:00: MOUTH [place] 00 EVERY DAY Medical Branch OMEPRAZOLE 2020-0 Yes [id number] TAKE 1 Univers 40 mg 7-24 CAPSULE BY ity of capsule 00:00: MOUTH [place] 00 EVERY DAY Medical Branch OMEPRAZOLE 2020-0 Yes [id number] TAKE 1 Univers 40 mg 7-24 CAPSULE BY ity of capsule 00:00: MOUTH [place] 00 EVERY DAY Medical Branch OMEPRAZOLE 2020-0 Yes [id number] TAKE 1 Univers 40 mg 7-24 CAPSULE BY ity of capsule 00:00: MOUTH [place] 00 EVERY DAY Medical Branch OMEPRAZOLE 2020-0 Yes [id number] TAKE 1 Univers 40 mg 7-24 CAPSULE BY ity of capsule 00:00: MOUTH [place] 00 EVERY DAY Medical Branch OMEPRAZOLE 2020-0 Yes [id number] TAKE 1 [facility] 40 mg 7-24 CAPSULE BY ity of capsule 00:00: MOUTH [place] 00 EVERY DAY Medical Branch OMEPRAZOLE 2020-0 Yes [id number] TAKE 1 [facility] 40 mg 7-24 CAPSULE BY ity of capsule 00:00: MOUTH [place] 00 EVERY DAY Medical Branch OMEPRAZOLE 2020-0 Yes [id number] TAKE 1 [facility] 40 mg 7-24 CAPSULE BY ity of capsule 00:00: MOUTH [place] 00 EVERY DAY Medical Branch OMEPRAZOLE 2020-0 Yes [id number] TAKE 1 [facility] 40 mg 7-24 CAPSULE BY ity of capsule 00:00: MOUTH [place] 00 EVERY DAY Medical Branch OMEPRAZOLE 2020-0 Yes [id number] TAKE 1 [facility] 40 mg 7-24 CAPSULE BY ity of capsule 00:00: MOUTH [place] 00 EVERY DAY Medical Branch OMEPRAZOLE 2020-0 2020- No [id number] TAKE 1 [facility] 40 mg 7-24 12-10 CAPSULE BY ity of capsule 00:00: 00:00 MOUTH [place] 00 :00 EVERY DAY Medical Branch lisinopril- 2020-0 2020- No 2{tbl} Take 2 U nivers hydrochloro 5-18 05-18 tablets by i ty of thiazide 14:51: 00:00 mouth [place] 20-12.5 mg 59 :00 every Medical per tablet evening. Branc h esomeprazol 2020-0 Yes 40mg Take 40 mg Univers e magnesium 5-18 by mouth. ity of (NEXIUM 14:45: [place] 24HR) 20 mg 29 Medical TbEC Branch HYDROcodone 2020-0 Yes .5{tbl} Take 0.5 Univers -acetaminop 5-18 tablets by it y of hen 7.5-325 14:45: mouth [place] mg per 29 every 4 Medical tablet (four) Branch hours. esomeprazol 2020-0 Yes 40mg Take 40 mg Univers e magnesium 5-18 by mouth. ity of (NEXIUM 14:45: [place] 24HR) 20 mg 29 Medical TbE Branch HYDROcodone 2020-0 Yes .5{tbl} Take 0.5 Univers -acetaminop 5-18 tablets by it y of hen 7.5-325 14:45: mouth [place] mg per 29 every 4 Medical tablet (four) Branch hours. esomeprazol 2020-0 Yes 40mg Take 40 mg Univers e magnesium 5-18 by mouth. ity of (NEXIUM 14:45: [place] 24HR) 20 mg 29 Medical TbE Branch HYDROcodone 2020-0 Yes .5{tbl} Take 0.5 [...] tablet (four) Branch hours. lisinopril- 2020-0 Yes [id number] 2{tbl} Take 2 Univers hydrochloro 5-18 tablets by it y of thiazide 00:00: mouth [place] 20-12.5 mg 00 every Medical per tablet evening. Bran h omeprazole 2020-0 Yes [id number] 40mg Take 1 [facility] 40 mg 5-18 capsule by ity of capsule 00:00: mouth [place] 00 daily. Medical Branch lisinopril- 2020-0 Yes [id number] 2{tbl} Take 2 Univers hydrochloro 5-18 tablets by it y of thiazide 00:00: mouth [place] 20-12.5 mg 00 every Medical per tablet evening. Bran h omeprazole 2020-0 Yes [id number] 40mg Take 1 [facility] 40 mg 5-18 capsule by ity of capsule 00:00: mouth [place] 00 daily. Medical Branch lisinopril- 2020-0 Yes [id number] 2{tbl} Take 2 Univers hydrochloro 5-18 tablets by it y of thiazide 00:00: mouth [place] 20-12.5 mg 00 every Medical per tablet evening. [facility] omeprazole 2019-0 Yes [id number] 40mg Take 1 Univers 40 mg 5-18 capsule by ity of capsule 00:00: mouth [place] 00 daily. Medical Branch lisinopril- 2019-0 Yes [id number] 2{tbl} Take 2 Univers hydrochloro 5-18 tablets by it y of thiazide 00:00: mouth [place] 20-12.5 mg 00 every Medical per tablet evening. [facility] lisinopril- 2019-0 Yes [id number] 2{tbl} Take 2 Univers hydrochloro 5-18 tablets by it y of thiazide 00:00: mouth [place] 20-12.5 mg 00 every Medical per tablet evening. [facility] lisinopril- 2019-0 Yes [id number] 2{tbl} Take 2 Univers hydrochloro 5-18 tablets by it y of thiazide 00:00: mouth [place] 20-12.5 mg 00 every Medical per tablet evening. [facility] lisinopril- 2019-0 Yes [id number] 2{tbl} Take 2 Univers hydrochloro 5-18 tablets by it y of thiazide 00:00: mouth [place] 20-12.5 mg 00 every Medical per tablet evening. [facility] lisinopril- 2019-0 2020- No [id number] 2{tbl} Take 2 Univers hydrochloro 5-18 08-04 tablets by i ty of thiazide 00:00: 00:00 mouth [place] 20-12.5 mg 00 :00 every Medical per tablet evening. [facility] omeprazole 2019-0 2020- No [id number] 40mg Take 1 Univers 40 mg 5-18 07-24 capsule by ity of capsule 00:00: 00:00 mouth [place] 00 :00 daily. Medical Branch HYDROcodone 2019-0 2020- No 1{tbl} Take 1 U nivers -acetaminop 4-23 04-23 tablet by it y of hen 7.5-325 20:49: 00:00 mouth [place] mg per 20 :00 needed for Medical tablet Pain. Branch lisinopril- 0 Yes 2{tbl} Take 2 Un [place] hydrochloro 4-23 tablets by it y of thiazide 20:31: mouth [place] 20-12.5 mg 13 every Medical per tablet evening. Bran h lisinopril- 2020-0 Yes 2{tbl} Take 2 Un [place] hydrochloro 4-23 tablets by it y of thiazide 20:31: mouth [place] 20-12.5 mg 13 every Medical per tablet evening. Bran h lisinopril- 2020-0 Yes 2{tbl} Take 2 Un [place] hydrochloro 4-23 tablets by it y of thiazide 20:31: mouth [place] 20-12.5 mg 13 every Medical per tablet evening. Bran h lisinopril- 2020-0 Yes 2{tbl} Take 2 Un [place] hydrochloro 4-23 tablets by it y of thiazide 20:31: mouth [place] 20-12.5 mg 13 every Medical per tablet evening. [facility] h acetaminoph 2020-0 Yes [id number] 650mg Take 1 Univers en 650 mg 4-23 tablet by ity o f CR tablet 00:00: mouth [place] 00 every 8 Medical (eight) Branch hours as needed for Pain or Fever. amLODIPine 2019-0 Yes [id number] 10mg Take 1 Univers 10 mg 4-23 tablet by ity of tablet 00:00: mouth [place] 00 daily. Medical Branch bromphenira 2019-0 Yes [id number] 10mL Take 10 mL Univers mine-pseudo 4-23 by mouth 4 it y of ephedrine-D 00:00: (four) [place] (BROMFED 00 times Medical DM) 2-30-10 daily as Bran ch mg/5 mL needed for syrup Cough. Bismuth 2019-0 Yes [id number] 262mg Take 1 Uni vers Subsalicyla 4-23 tablet by ity of te 00:00: mouth 4 [place] (PEPTO-BISM 00 (four) Medica l OL) 262 mg times Branch tablet daily as needed (diarrhea) . acetaminoph 2020-0 Yes [id number] 650mg Take 1 Univers en 650 mg 4-23 tablet by ity o f CR tablet 00:00: mouth [place] 00 every 8 Medical (eight) Branch hours as needed for Pain or Fever. amLODIPine 2019-0 Yes [id number] 10mg Take 1 Univers 10 mg 4-23 tablet by ity of tablet 00:00: mouth [place] 00 daily. Medical Branch bromphenira 2020-0 Yes [id number] 10mL Take 10 mL Univers mine-pseudo 4-23 by mouth 4 it y of ephedrine-D 00:00: (four) [place] (BROMFED 00 times Medical DM) 2-30-10 daily as Bran ch mg/5 mL needed for syrup Cough. Bismuth 2020-0 Yes [id number] 262mg Take 1 Uni vers Subsalicyla 4-23 tablet by ity of te 00:00: mouth 4 [place] (PEPTO-BISM 00 (four) Medica l OL) 262 mg times Branch tablet daily as needed (diarrhea) . acetaminoph 2020-0 Yes [id number] 650mg Take 1 Univers en 650 mg 4-23 tablet by ity o f CR tablet 00:00: mouth [place] 00 every 8 Medical (eight) Branch hours as needed for Pain or Fever. amLODIPine 2020-0 Yes [id number] 10mg Take 1 Univers 10 mg 4-23 tablet by ity of tablet 00:00: mouth [place] 00 daily. Medical Branch bromphenira 2020-0 Yes [id number] 10mL Take 10 mL Univers mine-pseudo 4-23 by mouth 4 it y of ephedrine-D 00:00: (four) [place] (BROMFED 00 times Medical DM) 2-30-10 daily as Bran ch mg/5 mL needed for syrup Cough. Bismuth 2020-0 Yes [id number] 262mg Take 1 Uni vers Subsalicyla 4-23 tablet by ity of te 00:00: mouth 4 [place] (PEPTO-BISM 00 (four) Medica l OL) 262 mg times Branch tablet daily as needed (diarrhea) . acetaminoph 2020-0 Yes [id number] 650mg Take 1 Univers en 650 mg 4-23 tablet by ity o f CR tablet 00:00: mouth [place] 00 every 8 Medical (eight) Branch hours as needed for Pain or Fever. amLODIPine 2020-0 Yes [id number] 10mg Take 1 Univers 10 mg 4-23 tablet by ity of tablet 00:00: mouth [place] 00 daily. Medical Branch bromphenira 2020-0 Yes [id number] 10mL Take 10 mL Univers mine-pseudo 4-23 by mouth 4 it y of ephedrine-D 00:00: (four) [place] (BROMFED 00 times Medical DM) 2-30-10 daily as Bran ch mg/5 mL needed for syrup Cough. Bismuth 2020-0 Yes [id number] 262mg Take 1 Uni vers Subsalicyla 4-23 tablet by ity of te 00:00: mouth 4 [place] (PEPTO-BISM 00 (four) Medica l OL) 262 mg times Branch tablet daily as needed (diarrhea) . acetaminoph 2020-0 Yes [id number] 650mg Take 1 Univers en 650 mg 4-23 tablet by ity o f CR tablet 00:00: mouth [place] 00 every 8 Medical (eight) Branch hours as needed for Pain or Fever. amLODIPine 2020-0 Yes [id number] 10mg Take 1 Univers 10 mg 4-23 tablet by ity of tablet 00:00: mouth [place] 00 daily. Medical Branch acetaminoph 2020-0 Yes [id number] 650mg Take 1 Univers en 650 mg 4-23 tablet by ity o f CR tablet 00:00: mouth [place] 00 every 8 Medical (eight) Branch hours as needed for Pain or Fever. amLODIPine 2020-0 Yes [id number] 10mg Take 1 Univers 10 mg 4-23 tablet by ity of tablet 00:00: mouth [place] 00 daily. Medical Branch acetaminoph 2020-0 Yes [id number] 650mg Take 1 Univers en 650 mg 4-23 tablet by ity o f CR tablet 00:00: mouth [place] 00 every 8 Medical (eight) Branch hours as needed for Pain or Fever. amLODIPine 2020-0 Yes [id number] 10mg Take 1 Univers 10 mg 4-23 tablet by ity of tablet 00:00: mouth [place] 00 daily. Medical Branch acetaminoph 2020-0 Yes [id number] 650mg Take 1 [facility] en 650 mg 4-23 tablet by ity o f CR tablet 00:00: mouth [place] 00 every 8 Medical (eight) Branch hours as needed for Pain or Fever. amLODIPine 2020-0 Yes [id number] 10mg Take 1 [facility] 10 mg 4-23 tablet by ity of tablet 00:00: mouth [place] 00 daily. Medical Branch acetaminoph 2020-0 Yes [id number] 650mg Take 1 [facility] en 650 mg 4-23 tablet by ity o f CR tablet 00:00: mouth [place] 00 every 8 Medical (eight) Branch hours as needed for Pain or Fever. amLODIPine 2020-0 Yes [id number] 10mg Take 1 Univers 10 mg 4-23 tablet by ity of tablet 00:00: mouth [place] 00 daily. Medical Branch amLODIPine 2020-0 Yes [id number] 10mg Take 1 Univers 10 mg 4-23 tablet by ity of tablet 00:00: mouth [place] 00 daily. Medical Branch amLODIPine 2020-0 Yes [id number] 10mg Take 1 Univers 10 mg 4-23 tablet by ity of tablet 00:00: mouth [place] 00 daily. Medical Branch amLODIPine 2020-0 Yes [id number] 10mg Take 1 Univers 10 mg 4-23 tablet by ity of tablet 00:00: mouth [place] 00 daily. Medical Branch amLODIPine 2020-0 Yes [id number] 10mg Take 1 Univers 10 mg 4-23 tablet by ity of tablet 00:00: mouth [place] 00 daily. Medical Branch amLODIPine 2020-0 Yes [id number] 10mg Take 1 Univers 10 mg 4-23 tablet by ity of tablet 00:00: mouth [place] 00 daily. Medical Branch amLODIPine 2020-0 Yes [id number] 10mg Take 1 Univers 10 mg 4-23 tablet by ity of tablet 00:00: mouth [place] 00 daily. Medical Branch amLODIPine 2020-0 Yes [id number] 10mg Take 1 Univers 10 mg 4-23 tablet by ity of tablet 00:00: mouth [place] 00 daily. Medical Branch amLODIPine 2020-0 Yes [id number] 10mg Take 1 [facility] 10 mg 4-23 tablet by ity of tablet 00:00: mouth [place] 00 daily. Medical Branch amLODIPine 2020-0 Yes [id number] 10mg Take 1 Univers 10 mg 4-23 tablet by ity of tablet 00:00: mouth [place] 00 daily. Medical Branch amLODIPine 2020-0 Yes [id number] 10mg Take 1 [facility] 10 mg 4-23 tablet by ity of tablet 00:00: mouth [place] 00 daily. Medical Branch bromphenira 2020-0 Yes [id number] 10mL Take 10 mL Univers mine-pseudo 4-23 by mouth 4 it y of ephedrine-D 00:00: (four) [place] (BROMFED 00 times Medical DM) 2-30-10 daily as Bran ch mg/5 mL needed for syrup Cough. Bismuth 2020-0 Yes [id number] 262mg Take 1 Uni vers Subsalicyla 4-23 tablet by ity of te 00:00: mouth 4 [place] (PEPTO-BISM 00 (four) Medica l OL) 262 mg times Branch tablet daily as needed (diarrhea) . acetaminoph 2020-0 Yes [id number] 650mg Take 1 [facility] en 650 mg 4-23 tablet by ity o f CR tablet 00:00: mouth [place] 00 every 8 Medical (eight) Branch hours as needed for Pain or Fever. amLODIPine 2020-0 Yes [id number] 10mg Take 1 [facility] 10 mg 4-23 tablet by ity of tablet 00:00: mouth [place] 00 daily. Medical Branch bromphenira 2020-0 Yes [id number] 10mL Take 10 mL [facility] mine-pseudo 4-23 by mouth 4 it y of ephedrine-D 00:00: (four) [place] (BROMFED 00 times Medical DM) 2-30-10 daily as Bran ch mg/5 mL needed for syrup Cough. Bismuth 2020-0 Yes [id number] 262mg Take 1 Uni vers Subsalicyla 4-23 tablet by ity of te 00:00: mouth 4 [place] (PEPTO-BISM 00 (four) Medica l OL) 262 mg times Branch tablet daily as needed (diarrhea) . acetaminoph 2020-0 Yes [id number] 650mg Take 1 [facility] en 650 mg 4-23 tablet by ity o f CR tablet 00:00: mouth [place] 00 every 8 Medical (eight) Branch hours as needed for Pain or Fever. amLODIPine 2020-0 Yes [id number] 10mg Take 1 [facility] 10 mg 4-23 tablet by ity of tablet 00:00: mouth [place] 00 daily. Medical Branch bromphenira 2020-0 Yes [id number] 10mL Take 10 mL Univers mine-pseudo 4-23 by mouth 4 it y of ephedrine-D 00:00: (four) [place] (BROMFED 00 times Medical DM) 2-30-10 daily as Bran ch mg/5 mL needed for syrup Cough. Bismuth 2020-0 Yes [id number] 262mg Take 1 Uni vers Subsalicyla 4-23 tablet by ity of te 00:00: mouth 4 [place] (PEPTO-BISM 00 (four) Medica l OL) 262 mg times Branch tablet daily as needed (diarrhea) . acetaminoph 2020-0 Yes [id number] 650mg Take 1 Univers en 650 mg 4-23 tablet by ity o f CR tablet 00:00: mouth [place] 00 every 8 Medical (eight) Branch hours as needed for Pain or Fever. amLODIPine 2020-0 Yes [id number] 10mg Take 1 [facility] 10 mg 4-23 tablet by ity of tablet 00:00: mouth [place] 00 daily. Medical Branch bromphenira 2020-0 Yes [id number] 10mL Take 10 mL [facility] mine-pseudo 4-23 by mouth 4 it y of ephedrine-D 00:00: (four) [place] (BROMFED 00 times Medical DM) 2-30-10 daily as Bran ch mg/5 mL needed for syrup Cough. Bismuth 2020-0 Yes [id number] 262mg Take 1 Uni vers Subsalicyla 4-23 tablet by ity of te 00:00: mouth 4 [place] (PEPTO-BISM 00 (four) Medica l OL) 262 mg times Branch tablet daily as needed (diarrhea) . acetaminoph 2020-0 Yes [id number] 650mg Take 1 [facility] en 650 mg 4-23 tablet by ity o f CR tablet 00:00: mouth [place] 00 every 8 Medical (eight) Branch hours as needed for Pain or Fever. amLODIPine 2020-0 Yes [id number] 10mg Take 1 Univers 10 mg 4-23 tablet by ity of tablet 00:00: mouth [place] 00 daily. Medical Branch bromphenira 2020-0 Yes [id number] 10mL Take 10 mL Univers mine-pseudo 4-23 by mouth 4 it y of ephedrine-D 00:00: (four) [place] (BROMFED 00 times Medical DM) 2-30-10 daily as Bran ch mg/5 mL needed for syrup Cough. Bismuth 2020-0 Yes [id number] 262mg Take 1 Uni vers Subsalicyla 4-23 tablet by ity of te 00:00: mouth 4 [place] (PEPTO-BISM 00 (four) Medica l OL) 262 mg times Branch tablet daily as needed (diarrhea) . amLODIPine 2020-0 2020- No [id number] 10mg Take 1 Univers 10 mg 4-23 10-13 tablet by ity of tablet 00:00: 00:00 mouth [place] 00 :00 daily. Medical Branch acetaminoph 2020-0 2020- No [id number] 650mg Take 1 Univers en 650 mg 11-12-13 tablet by ity of CR tablet 00:00: 00:00 mouth [place] 00 :00 every 8 Medical (eight) Branch hours as needed for Pain or Fever. acetaminoph 2019- No [id number] 650mg Take 1 Univers en 650 mg 11-12- tablet by ity of CR tablet 00:00: 00:00 mouth [place] 00 :00 every 8 Medical (eight) Branch hours as needed for Pain or Fever. bromphenira 2019- No [id number] 10mL Take 10 mL Univers mine-pseudo 11-1230 by mouth 4 i ty of ephedrine-D 00:00: 00:00 (four) [place] M (BROMFED 00 :00 times Medical DM) 2-30-10 daily as Bran ch mg/5 mL needed for syrup Cough. Bismuth 2019- No [id number] 262mg Take 1 Un [place] Subsalicyla 11-1230 tablet by it y of te 00:00: 00:00 mouth 4 [place] (PEPTO-BISM 00 :00 (four) Medica l OL) 262 mg times Branch tablet daily as needed (diarrhea) . bromphenira 2019- No [id number] 10mL Take 10 mL Univers mine-pseudo 11-12 by mouth 4 i ty of ephedrine-D 00:00: 00:00 (four) [place] as M (BROMFED 00 :00 times Medical DM) 2-30-10 daily as Bran ch mg/5 mL needed for syrup Cough. Bismuth 2019- No [id number] 262mg Take 1 Un [place] Subsalicyla 11-12-30 tablet by it y of te 00:00: 00:00 mouth 4 [place] (PEPTO-BISM 00 :00 (four) Medica l OL) 262 mg times Branch tablet daily as needed (diarrhea) . metoprolol 2017- Yes 25mg Take 25 mg U nivers succinate 3-26 by mouth ity of XL 25 mg 24 16:07: daily. [place] hr tablet 35 Medical Branch PREDNISONE Yes 20mg Take 20 mg U nivers ORAL 3-26 by mouth ity of 16:07: daily. [place] 35 Indication Medical s: pt Branch takes this med at hs metoprolol 2018-0 Yes 25mg Take 25 mg U nivers succinate 3-26 by mouth ity of XL 25 mg 24 16:07: daily. [place] tablet 35 Medical Branch PREDNISONE 2018-0 Yes 20mg Take 20 mg U nivers ORAL 3-26 by mouth ity of 16:07: daily. [place] [address] Indication Medical s: pt Branch takes this med at hs metoprolol 2018-0 Yes 25mg Take 25 mg U nivers succinate 3-26 by mouth ity of XL 25 mg 24 16:07: daily. [place] tablet 35 Medical Branch PREDNISONE 2018-0 Yes 20mg Take 20 mg U nivers ORAL 3-26 by mouth ity of 16:07: daily. [place] [address] Indication Medical s: pt Branch takes this med at hs metoprolol 2018-0 Yes 25mg Take 25 mg U nivers succinate 3-26 by mouth ity of XL 25 mg 24 16:07: daily. [place] hr tablet Medical Branch PREDNISONE 2017-0 Yes 20mg Take 20 mg U nivers ORAL 3-26 by mouth ity of 16:07: daily. [place] [address] Indication Medical s: pt Branch takes this med at metoprolol 2017-0 Yes 25mg Take 25 mg U nivers succinate 3-26 by mouth ity of XL 25 mg 24 16:07: daily. [place] hr tablet Medical Branch PREDNISONE 2018-0 Yes 20mg Take 20 mg U nivers ORAL 3-26 by mouth ity of 16:07: daily. [place] [address] Indication Medical s: pt Branch takes this med at metoprolol 2017-0 Yes 25mg Take 25 mg U nivers succinate 3-26 by mouth ity of XL 25 mg 24 16:07: daily. [place] hr tablet Medical Branch PREDNISONE 2018-0 Yes 20mg Take 20 mg U nivers ORAL 3-26 by mouth ity of 16:07: daily. [place] [address] Indication Medical s: pt Branch takes this med at hs metoprolol 2018-0 Yes 25mg Take 25 mg U nivers succinate 3-26 by mouth ity of XL 25 mg 24 16:07: daily. [place] hr tablet Medical Branch PREDNISONE 2018-0 Yes 20mg Take 20 mg U nivers ORAL 3-26 by mouth ity of 16:07: daily. [place] [address] Indication Medical s: pt Branch takes this med at hs metoprolol 0 Yes 25mg Take 25 mg U nivers succinate 3-26 by mouth ity of XL 25 mg 24 16:07: daily. [place] hr tablet 35 Medical Branch PREDNISONE 0 Yes 20mg Take 20 mg U nivers ORAL 3-26 by mouth ity of 16:07: daily. [place] [address] Indication Medical s: pt Branch takes this med at metoprolol 0 Yes 25mg Take 25 mg U nivers succinate 3-26 by mouth ity of XL 25 mg 24 16:07: daily. [place] hr tablet 35 Medical Branch PREDNISONE 0 Yes 20mg Take 20 mg U nivers ORAL 3-26 by mouth ity of 16:07: daily. [place] [address] Indication Medical s: pt Branch takes this med at hs Vital Signs Vital Name Observation Time Observation Value Comments Source Systolic blood 2020-11-29 13:11:00 160 mm[Hg] [facility] Diastolic blood 2020-11-29 13:11:00 95 mm[Hg] [facility] Heart rate 2020-11-29 13:11:00 81 /min [facility] Oxygen saturation in 2020-11-29 13:11:00 98 /min [facility] blood by [facility] Pulse oximetry Branch Respiratory rate 2020-11-29 13:07:00 18 /min [facility] Body temperature 2020-11-29 12:41:00 37.22 [place] [facility] Body height 2020-11-26 13:45:00 180.3 cm [facility] Body weight 2020-11-26 13:45:00 94.802 kg [facility] BMI 2020-11-26 13:45:00 29.15 kg/m2 [facility] Systolic blood 2020-11-29 13:11:00 160 mm[Hg] [facility] Diastolic blood 2020-11-29 13:11:00 95 mm[Hg] [facility] Heart rate 2020-11-29 13:11:00 81 /min [facility] Oxygen saturation in 2020-11-29 13:11:00 98 /min [facility] blood by [facility] Pulse oximetry Branch Respiratory rate 2020-11-29 13:07:00 18 /min [facility] [place] [facility] Body temperature 2020-11-29 12:41:00 37.22 [place] [facility] [place] [facility] Body height 2020-11-26 13:45:00 180.3 cm [facility] [place] [facility] Body weight 2020-11-26 13:45:00 94.802 kg [facility] [place] [facility] BMI 2020-11-26 13:45:00 29.15 kg/m2 [facility] [place] [facility] Systolic blood 2020-11-17 20:21:00 150 mm[Hg] [facility] [place] [facility] Diastolic blood 2020-11-17 20:21:00 99 mm[Hg] [facility] [place] [facility] Heart rate 2020-11-17 20:20:00 92 /min [facility] [place] [facility] Body temperature 2020-11-17 20:20:00 36.39 [place] [facility] [place] [facility] Respiratory rate 2020-11-17 20:20:00 18 /min [facility] [place] [facility] Body height 2020-11-17 20:20:00 180.3 cm [facility] [place] [facility] Body weight 2020-11-17 20:20:00 95.119 kg [facility] [place] [facility] BMI 2020-11-17 20:20:00 29.25 kg/m2 [facility] [place] [facility] Oxygen saturation in 2020-11-17 20:20:00 96 /min [facility] Arterial blood by [facility] Pulse oximetry Branch Systolic blood 2020-04-15 20:43:00 136 mm[Hg] [facility] [place] [facility] Diastolic blood 2020-04-15 20:43:00 84 mm[Hg] [facility] [place] [facility] Heart rate 2020-04-15 20:43:00 80 /min [facility] [place] [facility] Body temperature 2020-04-15 20:43:00 36.83 [place] [facility] [place] [facility] Respiratory rate 2020-04-15 20:43:00 20 /min [facility] [place] [facility] Body height 2020-04-15 20:43:00 180.3 cm [facility] [place] [facility] Body weight 2020-04-15 20:43:00 91.173 kg [facility] [place] [facility] BMI 2020-04-15 20:43:00 28.03 kg/m2 [facility] [place] [facility] Oxygen saturation in 2020-04-15 20:43:00 98 /min [facility] Arterial blood by [facility] Pulse oximetry Branch Systolic blood 2020-03-23 14:12:00 127 mm[Hg] [facility] [place] [facility] Diastolic blood 2020-03-23 14:12:00 86 mm[Hg] [facility] [place] [facility] Heart rate 2020-03-23 14:12:00 81 /min [facility] [place] [facility] Body temperature 2020-03-23 14:12:00 36.11 [place] [facility] [place] [facility] Respiratory rate 2020-03-23 14:12:00 20 /min [facility] [place] [facility] Body height 2020-03-23 14:12:00 180.3 cm [facility] [place] [facility] Body weight 2020-03-23 14:12:00 91.264 kg [facility] [place] [facility] BMI 2020-03-23 14:12:00 28.06 kg/m2 [facility] [place] [facility] Oxygen saturation in 2020-03-23 14:12:00 95 /min [facility] Arterial blood by [facility] Pulse oximetry Branch Systolic blood 2020-03-15 16:24:00 121 mm[Hg] [facility] [place] [facility] Diastolic blood 2020-03-15 16:24:00 77 mm[Hg] [facility] Heart rate 2020-03-15 16:24:00 86 /min [facility] Body height 2020-03-15 16:24:00 180.3 cm [facility] Body weight 2020-03-15 16:24:00 90.266 kg [facility] BMI 2020-03-15 16:24:00 27.75 kg/m2 [facility] Systolic blood 2020-03-04 16:46:00 131 mm[Hg] [facility] Diastolic blood 2020-03-04 16:46:00 88 mm[Hg] [facility] Heart rate 2020-03-04 16:46:00 81 /min [facility] Respiratory rate 2020-03-04 16:46:00 19 /min Univ [facility] Body height 2020-03-04 16:46:00 180.3 cm [facility] [place] [facility] Body weight 2020-03-04 16:46:00 90.538 kg [facility] BMI 2020-03-04 16:46:00 27.84 kg/m2 [facility] Oxygen saturation in 2020-03-04 16:46:00 94 /min University of Arterial blood by [facility] ranjit Pulse oximetry Branch Systolic blood 2020-03-04 16:46:00 131 mm[Hg] [facility] Diastolic blood 2020-03-04 16:46:00 88 mm[Hg] [facility] Heart rate 2020-03-04 16:46:00 81 /min [facility] Respiratory rate 2020-03-04 16:46:00 19 /min Univ [facility] Body height 2020-03-04 16:46:00 180.3 cm [facility] Body weight 2020-03-04 16:46:00 90.538 kg [facility] BMI 2020-03-04 16:46:00 27.84 kg/m2 [facility] Oxygen saturation in 2020-03-04 16:46:00 94 /min University of Arterial blood by [facility] Pulse oximetry Branch Systolic blood 2020-02-19 20:46:00 108 mm[Hg] [facility] Diastolic blood 2020-02-19 20:46:00 72 mm[Hg] [facility] Heart rate 2020-02-19 20:46:00 81 /min [facility] Body temperature 2020-02-19 20:46:00 36.67 Tiera [facility] Respiratory rate 2020-02-19 20:46:00 18 /min [facility] Body height 2020-02-19 20:46:00 180.3 cm [facility] Body weight 2020-02-19 20:46:00 91.717 kg [facility] BMI 2020-02-19 20:46:00 28.20 kg/m2 Universi ty [facility] [place] Oxygen saturation in 2020-02-19 20:46:00 93 /min University of Arterial blood by [facility] Pulse oximetry Branch Systolic blood 2019-11-13 20:31:00 142 mm[Hg] Univer sity of pressure [facility] Diastolic blood 2019-11-13 20:31:00 106 mm[Hg] Unive rsity of pressure [facility] Heart rate 2019-11-13 20:27:00 104 /min [facility] [place] [facility] [place] Body temperature 2019-11-13 20:27:00 36.89 Tiera [facility] Respiratory rate 2019-11-13 20:27:00 16 /min [facility] Body height 2019-11-13 20:27:00 180.3 cm [facility] [place] [facility] [place] Body weight 2019-11-13 20:27:00 102.967 kg Universi ty [facility] [place] BMI 2019-11-13 20:27:00 31.66 kg/m2 Universi ty [facility] [place] Oxygen saturation in 2019-11-13 20:27:00 96 /min University of Arterial blood by [facility] Pulse oximetry Branch Procedures Procedure Date / Time Performing Clinician Source Performed ASSIGNMENT OF BENEFITS 2020-12-10 19:56:52 Doctor Unassigned, [facility] [place] TIME OR 2020-11-29 12:35:00 Brice Geller [facility] (NON-REPORTABLE) [facility] [place] LUMBAR EPIDURAL STEROID 2020-11-29 12:16:00 [facility] DAY SURGERY - ADC 2020-11-29 05:01:00 Doctor Unassigned, [facility] [place] [facility] [place] CBC WITH DIFF 2020-11-26 15:03:00 Brice Geller [facility] Medical Branch COVID-19 (ID NOW RAPID 2020-11-26 15:03:00 Brice Geller [facility] TESTING) Medical Branch LAB ONLY COVID 2020-11-26 15:03:00 Brice Geller [facility] INTERPRETATION Medical Branch ASSIGNMENT OF BENEFITS 2020-11-26 14:43:36 [facility] DSU PRE-OP 2020-11-25 05:01:00 Doctor Albert, [facility] POCT URINALYSIS AUTO 2020-04-15 20:49:00 [facility] CBC WITH DIFF 2020-03-23 15:18:[address] [facility] ASSIGNMENT OF BENEFITS 2020-02-19 20:25:25 [facility] [facility] [place] Encounters Start End Encounter Admission Attending Care Care Encounter Source Date/Time Date/Time Type Type Clinicians Facility Department ID 2021-05-22 Outpatient Kia GELLER [facility] [id number] Univers 17:17:58 [facility] 2021-05-22 Outpatient Kia GELLER [facility] [id number] Univers 17:17:54 [facility] 2023-02-27 2023-02-27 Outpatient [facility] [id number] Julius 17:50:26 17:50:26 [id number] [facility] 2023-01-03 2023-01-03 Outpatient [facility] [id number] Julius 16:46:10 16:46:10 [id number] [facility] 2022-06-19 2022-06-19 [facility] 1.2.840.114 [id number] Univers 00:00:00 00:00:00 Robbie DODSON 350.1.13.10 i [place] [phone] In dical NAL [address] [place] [address] 2022-04-21 2022-04-21 Refill Ederum, [facility] 1.2.840.114 [id number] Univers 00:00:00 00:00:00 Robbie DODSON 350.1.13.10 i [place] [phone] In dical NAL [address] [place] [address] 2022-01-30 2022-01-30 [facility] 1.2.840.114 [id number] Univers 00:00:00 00:00:00 Robbie DODSON 350.1.13.10 i ty [place] [phone] In dical NAL [address] [place] [address] 2021-09-12 2021-09-12 [facility] 1.2.840.114 [id number] Univers 00:00:00 00:00:00 Robbie DODSON 350.1.13.10 i ty [place] [phone] In dical NAL [address] [place] [address] 2021-09-12 2021-09-12 [facility] 1.2.840.114 [id number] Univers 00:00:00 00:00:00 Betty DODSON 350.1.13.10 i ty of [place] [phone] In dical NAL [address] [place] [address] 2021-08-31 2021-08-31 [facility] 1.2.840.114 [id number] Univers 00:00:00 00:00:00 Robbie DODSON 350.1.13.10 i ty [place] [phone] In dical NAL [address] [place] [address] 2021-07-22 2021-07-22 [facility] 1.2.840.114 [id number] Univers 00:00:00 00:00:00 Robbie DODSON 350.1.13.10 i ty [place] [phone] In dical NAL [address] [place] [address] 2021-06-14 2021-06-14 [facility] 1.2.840.114 [id number] Univers 00:00:00 00:00:00 Robbie DODSON 350.1.13.10 i ty [place] [phone] [address] 2021-05-15 2021-05-15 [facility] 1.2.840.114 [id number] Univers 00:00:00 00:00:00 Robbie Dodson 350.1.13.10 i ty [place] [phone] [address] 2021-03-22 2021-03-22 [facility] 1.2.840.114 [id number] Univers 00:00:00 00:00:00 Robbie Dodson 350.1.13.10 i ty [place] [phone] [address] 2021-03-18 2021-03-18 [facility] [id number] Univers 13:20:00 13:20:00 ROBBIE kwok [facility] 2020-12-17 2020-12-17 [facility]brittny [facility] 1.2.840.114 [id number] Univers 00:00:00 00:00:00 Robbie Dodson 350.1.13.10 i ty [place] [phone] [address] 2020-12-10 2020-12-10 Laboratory Only, Adc Test [facility] 1.2.840. 114 [id number] Univers 14:56:11 15:11:11 Only Brice Geller 350.1.13.1 0 ity [place] [phone] [address] 2020-12-10 2020-12-10 Outpatient R YIMI [facility] [id number] Univers 09:00:00 09:00:00 BRICE kwok [facility] 2020-12-10 2020-12-10 Orders Doctor CARLIN 1.2.840.114 [id number] Univers 00:00:00 00:00:00 Only Unassigned, [place] 350.1.13.10 ity of [facility] 4.2.7.2.686 [place] [phone] [facility] 009 Branch 2020-11-29 2020-11-29 Surgery [facility] 1.2.905.710 [id number] Univers 09:00:00 09:21:00 Brice Dodson 350.1.13.10 ity [place] Surgical [phone] [facility] 020 Branch 2020-11-29 2020-11-29 [facility] 1.2.840.114 [id number] Univers 06:17:00 08:21:00 Encounter Brice Dod[place] 350.1.13.10 ity of [place] Surgical [phone] [facility] 071 Branch 2020-11-29 2020-11-29 Orders Doctor TESFAYE 1.2.840.114 [id number] Univers 00:00:00 00:00:00 Only Unassigned, [place] 350.1.13.10 ity of [facility] 4.2.7.2.686 [place] [phone] [facility] 009 Branch 2020-11-26 2020-11-26 [facility] [id number] Univers 12:00:00 12:00:00 BRICE ity of [facility] 2020-11-26 2020-11-26 Laboratory Only, Adc Test [facility] 1.2.840. 114 [id number] Univers 09:46:31 10:01:31 Only Brice Geller 350.1.13.1 0 ity of [place] [phone] [facility] 353 Branch 2020-11-26 2020-11-26 Tailer In Corey, Adc Lab Main [facility] 1.2.8 40.114 [id number] Univers 09:43:52 09:58:52 Visit Brice Geller 350.1.13.1 0 ity of [place] [phone] Me dical nal 353 [facility] 2020-11-26 2020-11-26 Orders Doctor TESFAYE 1.2.840.114 [id number] Univers 00:00:00 00:00:00 Only Unassigned, [place] 350.1.13.10 ity [facility] 4.2.7.2.686 [place] [phone] [address] 2020-11-25 2020-11-25 Orders Doctor TESFAYE 1.2.840.114 [id number] Univers 00:00:00 00:00:00 Only Unassigned, [place] 350.1.13.10 ity [facility] 4.2.7.2.686 [place] [phone] [address] 2020-11-17 2020-11-17 Office [facility] 1.2.840.114 [id number] Univers 15:11:19 15:54:54 Visit Robbie Dodson 350.1.13.10 i ty [place] [phone] In dical [facility] 044 [facility] 2020-11-17 2020-11-17 Outpatient [facility] [id number] Univers 15:20:00 15:20:00 ROBBIE rissa [facility] 2020-10-30 2020-10-30 Refill [facility] 1.2.840.114 [id number] Univers 00:00:00 00:00:00 [facility] 350.1.13.10 it y of [place] 4.2.7.2.686 [place] [phone] [address] Office Building One 2020-10-19 2020-10-19 Outpatient R [facility] [id number] Univers 14:40:00 14:40:00 ROBBIE ranjeet [facility] 2020-10-18 2020-10-18 Refill [facility] 1.2.840.114 [id number] Univers 00:00:00 00:00:00 Robbie Dodson 350.1.13.10 i ty [place] [phone] [address] 2020-09-23 2020-09-23 [facility] 1.2.840.114 [id number] Univers 00:00:00 00:00:00 Betty Dodson 350.1.13.10 i ty of [place] [phone] [address] 2020-08-11 2020-08-11 [facility] 1.2.840.114 [id number] Univers 00:00:00 00:00:00 Robbie Dodson 350.1.13.10 i ty [place] [phone] [address] 2020-07-20 2020-07-20 Telemedici [facility] 1.2.840.114 [id number] Univers 07:50:43 13:12:30 ne Visit Robbie Dodson 350.1.13.10 ity of [place] [phone] [address] 2020-07-20 2020-07-20 [facility] [id number] Univers 08:40:00 08:40:00 ROBBIE ranjeet [facility] 2020-07-01 2020-07-01 [facility] 1.2.840.114 [id number] Univers 00:00:00 00:00:00 Betty Dodson 350.1.13.10 i ty [place] [phone] [address] 2020-06-23 2020-06-23 [facility] [id number] Univers 14:40:00 14:40:00 ROBBIE kwok [facility] 2020-06-14 2020-06-14 [facility] [id number] Univers 13:30:00 13:30:00 RICHAR [facility] 2020-05-02 2020-05-02 Ref[facility] ..840.114 [id number] Univers 00:00:00 00:00:00 Robbie Tanna 350.1.13.10 it y of [place] 4.2.7.2.686 [place] Profess[place] [phone] [facility] 044 [facility] One 2020-04-15 2020-04-15 Office [facility] 1..840.114 [id number] Univers 15:26:41 16:15:27 Visit Gwendolyn Dodson 350.1.13.10 i ty [place] [phone] [facility] 204 [facility] 2020-04-15 2020-04-15 Outpatient [facility] [id number] Univers 15:30:00 15:30:00 [facility] 2020-04-14 2020-04-14 Outpatient [facility] [id number] Univers 08:30:00 08:30:00 RICHAR kwok [facility] 2020-03-23 2020-03-23 Tailer In 2, Adc Lab [facility] 1..840.114 [id number] Univers 10:12:51 10:27:51 Visit Robbie Dior 350.1.13.10 ity [place] [phone] [facility] 353 [facility] 2020-03-23 2020-03-23 Office [facility] 1..840.114 [id number] Univers 08:52:24 10:03:07 Visit Robbie Dodson 350.1.13.10 i ty [place] [phone] [facility] 044 [facility] 2020-03-23 2020-03-23 [facility]patient [facility] [id number] Univers 09:20:00 09:20:00 ROBBIE ranjeet [facility] 2020-03-15 2020-03-15 Laboratory Pc, Adc Echo Room 1 - [facility] 1 .2.840.114 [id number] Univers 11:19:09 11:54:47 Only Sivakumar Luevano 350.1.13.10 ity of [place] [phone] [place] [address] [facility] 2020-03-15 2020-03-15 Outpatient R [facility] [id number] Univers 11:00:00 11:00:00 ity of [facility] 2020-03-04 2020-03-04 Office [facility] 1.2.840.114 [id number] Univers 11:30:10 12:03:59 Visit Sivakumar Dod[place] 350.1.13.10 ity of [place] [phone] [address] 2020-03-04 2020-03-04 Office [facility] 1.2.840.114 [id number] 11:30:10 12:03:59 Visit Sivakumar Dod[place] 350.1.13.10 [place] 4.2.7.2.686 Professio [phone] [address] 2020-03-04 2020-03-04 Outpatient [facility] [id number] Univers 10:40:00 10:40:00 SIVAKUMAR ity o f [facility] 2020-02-24 2020-02-24 [facility] 1.2.840.114 [id number] Univers 00:00:00 00:00:00 [facility] 350.1.13.10 it y of [place] 4.2.7.2.686 [place] Profess[place] [phone] [address] 2020-02-24 2020-02-24 [facility] 1.2.840.114 [id number] Univers 00:00:00 00:00:00 [facility] 350.1.13.10 it y of [place] 4.2.7.2.686 [place] Profess[place] [phone] [address] One 2020-02-19 2020-02-19 Office [facility] 1.2.840.114 [id number] Univers 15:26:05 16:47:38 Visit Robbie Dodson 350.1.13.10 i ty [place] [phone] [address] 2020-02-19 2020-02-19 Outpatient [facility] [id number] Univers 15:20:00 15:20:00 ROBBIE rissa [facility] 2020-02-19 2020-02-19 Orders Doctor TESFAYE 1.2.840.114 [id number] Univers 00:00:00 00:00:00 Only Unassigned[place] 350.1.13.10 ity of [facility] 4.2.7.2.686 [place] [phone] [address] 2020-02-13 2020-02-13 [facility] 1.2.840.114 [id number] Univers 00:00:00 00:00:00 Betty Dodson 350.1.13.10 i ty of [place] [phone] [address] 2020-02-12 2020-02-12 Outpatient [facility] [id number] Univers 15:00:00 15:00:00 SHARON kwok [facility] 2020-02-12 2020-02-12 Laboratory Lab, Adc Fam Pob I [facility] 1.2. 840.114 [id number] Univers 14:26:54 14:46:54 Only Sharon Maya [facility] 350.1.13.10 ity of [place] 4.2.7.2.686 [place] Profess[place] [phone] [address] Office Building One 2020-02-12 2020-02-12 Letter Doctor TESFAYE 1.2.840.114 [id number] Univers 00:00:00 00:00:00 (Out) Unassigned[place] 350.1.13.10 ity of [facility] 4.2.7.2.686 [place] [phone] [address] 2019-12-08 2019-12-08 Outpatient R RAVINDER, [facility] [id number] Univers 09:30:00 09:30:00 BETTY kwok [facility] 2019-12-08 2019-12-08 Telemedici [facility] 1.2.840.114 [id number] Univers 07:55:53 08:25:53 ne Visit Betty Dodson 350.1.13.10 ity of [place] [phone] [address] 2019-11-27 2019-11-27 Telephone Francesco [facility] 1.2.389.567 [id number] [facility] 00:00:00 00:00:00 [facility] 350.1.13.10 it y of [place] 4.2.7.2.686 [place] Profess[place] [phone] [address] Office [facility] 2019-11-14 2019-11-14 Telephone [facility] 1.2.840.114 [id number] Univers 00:00:00 00:00:00 [facility] 350.1.13.10 it y of [place] 4.2.7.2.686 [place] Profess[place] [phone] [address] 2019-11-13 2019-11-13 Urgent Pob1, Acute Care Clinic [facility] 1. 2.840.114 [id number] [facility] 15:27:16 15:59:22 Care Jaivitawilder [facility] 350.1.13.10 ity of [place] 4.2.7.2.686 [place] Professio [phone] [address] Office [facility] 2019-11-13 2019-11-13 Outpatient R JAIVITACHONARLEEN [facility] [id number] Univers 15:40:00 15:40:00 ROBBIE kwok [facility] Results Test Description Test Time Test Comments Results Result Sourc e Comments LAB ONLY COVID 2020-11-20 [facility] [place] [facility] 03:19:25 rpretation/Recomme Branch ndations: Molecular NAAT Tests [...] COVID-19 testing the patient has had at [facility], including molecular NAAT testing (more commonly known as PCR testing and Rapid ID Now testing) and antibody testing. It does not take into account any testing that a patient has had outside of the [facility] medical record. [facility] LABOR[facility]ORY SERVICESCOVID EgwtsbePHYH-CrF-7 NAAT (no units) ? ? Date ? Value ? 02/12/2020 ? Not Detected ? ? ? 11/13/2019 ? Not Detected ? SARS-CoV -2 Rapid ID NOW (no units) ? ? Date ? Value ? 11/26/2020 ? Not Detected ? [facility] LAB ONLY COVID 2020-11- COVID DMT [facility] 1 InterpretationInte Ashok beverly [facility] 03:19:25 rpretation/Recomme Branch ndations: Molecular NAAT Tests [...] COVID-19 testing the patient has had at [facility], including molecular NAAT testing (more commonly known as PCR testing and Rapid ID Now testing) and antibody testing. It does not take into account any testing that a patient has had outside of the [facility] medical record. [facility] LABORATORY SERVICESCOVID TrtsrnkMKIB-LdT-0 NAAT (no units) ? ? Date ? Value ? 02/12/2020 ? Not Detected ? ? ? 11/13/2019 ? Not Detected ? SARS-CoV -2 Rapid ID NOW (no units) ? ? Date ? Value ? 11/26/2020 ? Not Detected ? [facility] LAB ONLY COVID 2020-11-20 COVID DMT [place] [address] InterpretationInte [facility] 03:19:25 rpretation/Recomme Branch ndations: Molecular NAAT Tests [...] COVID-19 testing the patient has had at [facility], including molecular NAAT testing (more commonly known as PCR testing and Rapid ID Now testing) and antibody testing. It does not take into account any testing that a patient has had outside of the [facility] medical record. [facility] LAB[facility] SERVICESCOVID YzemiqxYKUF-CcG-0 NAAT (no units) ? ? Date ? Value ? 02/12/2020 ? Not Detected ? ? ? 11/13/2019 ? Not Detected ? SARS-CoV -2 Rapid ID NOW (no units) ? ? Date ? Value ? 11/26/2020 ? Not Detected ? [facility] [place] TIME OR 2020-11-20 These images do Universit y of (NON-REPORTABLE) 0 not require a [facility] 14:30:48 Radiology Branch diagnostic report. COVID-19 (ID NOW RAPID TESTING) 2020-11-26 15:47:57 Test Item Value Reference Range Interpretation Comme nts SARS-CoV-2 Rapid ID NOW (test code Not Detected Not Detected = 80406-4) ALEC (test code = ALEC) ID NOW COVID-19 Assay is an isothermal nucleic acid amplification test intended for the qualitative detection of nucleic acid from SARS-CoV-2 viral RNA in nasopharyngeal (ROOF PROMENADE TILE SETTER) specimens. It is used under Emergency Use [...] indicated. Lab Interpretation (test code = Normal 59446-0) [facility]ID [facility]2020-11-26 15:47:57 Test Item Value Reference Range Interpretation Comments SARS-CoV-2 Rapid ID NOW Not Detected Not Detected (test code = 76861-3) ALEC (test code = ALEC) ID NOW COVID-19 Assay is an isothermal nucleic acid amplification test intended for the qualitative detection of nucleic acid from SARS-CoV-2 viral RNA in nasopharyngeal (ROOF PROMENADE TILE SETTER) specimens. It is used under Emergency Use [...] indicated. Lab Interpretation Normal (test code = 39379-7) [facility] ([facility] NOW RAPID TESTING)2020-11-26 15:47:57 Test Item Value Reference Range Interpretation Comments SARS-CoV-2 Rapid ID NOW Not Detected Not Detected (test code = 55852-7) ALEC (test code = ALEC) ID NOW COVID-19 Assay is an isothermal nucleic acid amplification test intended for the qualitative detection of nucleic acid from SARS-CoV-2 viral RNA in nasopharyngeal (ROOF PROMENADE TILE SETTER) specimens. It is used under Emergency Use [...] indicated. Lab Interpretation Normal (test code = 70534-8) [facility] WITH [id number] 15:32:36 Test Item Value Reference Range Interpretation Comments WBC (test code = See_Comment H [Automated 8772-2) message] The system which generated this result [...] RDW-SD (test code = 42.5 fL 38.5-51.6 08085-9) RDW-CV (test code = 13.6 % 12.1-15.4 788-0) PLT (test code = See_Comment [Automated 777-3) message] The system which generated this result transmit sg reference range : 150 - 328 10*3/ ?L. The reference range was not u sed to interpret th is result as normal/abnormal . MPV (test code = 11.7 fL 9.8-13.0 59072-4) NRBC/100 WBC (test See_Comment [Automat ed code = 1101054848) message] The system which generated this result transmit sg reference range : 0.0 - 10.0 /100 WBCs. The reference range was not used to interpret this result as normal/abnormal . NRBC x10^3 (test code <0.01 See_Comment [Auto mated = 9897184936) message] The system which generated this result transmit sg reference range : 10*3/?L. The reference range was not used to interpret this result as normal/abnormal . GRAN MAT (NEUT) % 75.7 % (test code = 770-8) IMM GRAN % (test code 0.60 % = 1525839342) LYMPH % (test code = 12.6 % 736-9) MONO % (test code = 9.7 % 5905-5) EOS % (test code = 1.0 % 713-8) BASO % (test code = 0.4 % 706-2) GRAN MAT x10^3(ANC) 10.30 10*3/uL 1.99-6.95 H (test code = 2503224652) IMM GRAN x10^3 (test 0.08 10*3/uL 0.00-0.06 H code = [id number]) LYMPH x10^3 (test code 1.71 10*3/uL 1.09-3.23 = 731-0) MONO x10^3 (test code 1.32 10*3/uL 0.36-1.02 H = 742-7) EOS x10^3 (test code = 0.14 10*3/uL 0.06-0.53 711-2) BASO x10^3 (test code 0.06 10*3/uL 0.01-0.09 = 704-7) Lab Interpretation Abnormal (test code = 69575-0) [facility] WITH [id number] 15:32:36 Test Item Value Reference Range Interpretation Comments WBC (test code = See_Comment H [Automated 4890-2) message] The system which generated this result transmit sg reference range : 4.20 - 10.70 10*3/?L. The reference range was not used to interpret this result as normal/abnormal . RBC (test code = See_Comment [Automated 039-8) message] The system which generated this result [...] RDW-SD (test code = 42.5 fL 38.5-51.6 02127-1) RDW-CV (test code = 13.6 % 12.1-15.4 788-0) PLT (test code = See_Comment [Automated 777-3) message] The system which generated this result transmit sg reference range : 150 - 328 10*3/ ?L. The reference range was not u sed to interpret th is result as normal/abnormal . MPV (test code = 11.7 fL 9.8-13.0 62078-4) NRBC/100 WBC (test See_Comment [Automat ed code = 1459729533) message] The system which generated this result transmit sg reference range : 0.0 - 10.0 /100 WBCs. The reference range was not used to interpret this result as normal/abnormal . NRBC x10^3 (test code <0.01 See_Comment [Auto mated = 4861005412) message] The system which generated this result transmit sg reference range : 10*3/?L. The reference range was not used to interpret this result as normal/abnormal . GRAN MAT (NEUT) % 75.7 % (test code = 770-8) IMM GRAN % (test code 0.60 % = 5274700817) LYMPH % (test code = 12.6 % 736-9) MONO % (test code = 9.7 % 5905-5) EOS % (test code = 1.0 % 713-8) BASO % (test code = 0.4 % 706-2) GRAN MAT x10^3(ANC) 10.30 10*3/uL 1.99-6.95 H (test code = 6296013806) IMM GRAN x10^3 (test 0.08 10*3/uL 0.00-0.06 H code = 6343566168) LYMPH x10^3 (test code 1.71 10*3/uL 1.09-3.23 = 731-0) MONO x10^3 (test code 1.32 10*3/uL 0.36-1.02 H = 742-7) EOS x10^3 (test code = 0.14 10*3/uL 0.06-0.53 711-2) BASO x10^3 (test code 0.06 10*3/uL 0.01-0.09 = 704-7) Lab Interpretation Abnormal (test code = 59750-0) [facility] WITH [id number] 15:32:36 Test Item Value Reference Range Interpretation Comments WBC (test code = See_Comment H [Automated 1408-2) message] The system which generated this result transmit sg reference range : 4.20 - 10.70 10*3/?L. The reference range was not used to interpret this result as normal/abnormal . RBC (test code = See_Comment [Automated 919-8) message] The system which generated this result [...] RDW-SD (test code = 42.5 fL 38.5-51.6 21764-3) RDW-CV (test code = 13.6 % 12.1-15.4 788-0) PLT (test code = See_Comment [Automated 777-3) message] The system which generated this result transmit sg reference range : 150 - 328 10*3/ ?L. The reference range was not u sed to interpret th is result as normal/abnormal . MPV (test code = 11.7 fL 9.8-13.0 37531-5) NRBC/100 WBC (test See_Comment [Automat ed code = 0051650212) message] The system which generated this result transmit sg reference range : 0.0 - 10.0 /100 WBCs. The reference range was not used to interpret this result as normal/abnormal . NRBC x10^3 (test code <0.01 See_Comment [Auto mated = 8488062004) message] The system which generated this result transmit sg reference range : 10*3/?L. The reference range was not used to interpret this result as normal/abnormal . GRAN MAT (NEUT) % 75.7 % (test code = 770-8) IMM GRAN % (test code 0.60 % = 3841762590) LYMPH % (test code = 12.6 % 736-9) MONO % (test code = 9.7 % 5905-5) EOS % (test code = 1.0 % 713-8) BASO % (test code = 0.4 % 706-2) GRAN MAT x10^3(ANC) 10.30 10*3/uL 1.99-6.95 H (test code = 5018052715) IMM GRAN x10^3 (test 0.08 10*3/uL 0.00-0.06 H code = 8448199861) LYMPH x10^3 (test code 1.71 10*3/uL 1.09-3.23 = 731-0) MONO x10^3 (test code 1.32 10*3/uL 0.36-1.02 H = 742-7) EOS x10^3 (test code = 0.14 10*3/uL 0.06-0.53 711-2) BASO x10^3 (test code 0.06 10*3/uL 0.01-0.09 = 704-7) Lab Interpretation Abnormal (test code = 19998-8) [facility] [id number] 20:50:00 Test Item Value Reference Range Interpretation [...] 3267) Lab Interpretation (test code Normal = 15640-6) [facility] URINALYSIS, [id number] 20:50:00 Test Item Value Reference Range Interpretation [...] 3267) Lab Interpretation (test code Normal = 96903-9) [facility] URINALYSIS, [id number] 20:50:00 Test Item Value Reference Range Interpretation [...] 3267) Lab Interpretation (test code Normal = 62987-6) [facility] WITH [id number] 15:31:00 Test Item Value Reference Range Interpretation Comments WBC (test code = See_Comment H [Automated 4584-2) message] The system which generated this result transmit sg reference range : 4.20 - 10.70 10*3/?L. The reference range was not used to interpret this result as normal/abnormal . RBC (test code = See_Comment [Automated 237-8) message] The system which generated this result [...] RDW-SD (test code = 46.5 fL 38.5-51.6 95703-5) RDW-CV (test code = 14.6 % 12.1-15.4 788-0) PLT (test code = See_Comment [Automated 967-3) message] The system which generated this result transmit sg reference range : 150 - 328 10*3/ ?L. The reference range was not u sed to interpret th is result as normal/abnormal . MPV (test code = 10.8 fL 9.8-13 47623-6) NRBC/100 WBC (test See_Comment [Automat ed code = 4898660603) message] The system which generated this result transmit sg reference range : 0.0 - 10.0 /100 WBCs. The reference range was not used to interpret this result as normal/abnormal . NRBC x10^3 (test code <0.01 See_Comment [Auto mated = 8930434940) message] The system which generated this result transmit sg reference range : 10*3/?L. The reference range was not used to interpret this result as normal/abnormal . GRAN MAT (NEUT) % 76.2 % (test code = 770-8) IMM GRAN % (test code 0.40 % = 0588213520) LYMPH % (test code = 12.6 % 736-9) MONO % (test code = 8.3 % 5905-5) EOS % (test code = 2.1 % 713-8) BASO % (test code = 0.4 % 706-2) GRAN MAT x10^3(ANC) 10.98 10*3/uL 1.99-6.95 H (test code = 8892918672) IMM GRAN x10^3 (test 0.06 10*3/uL 0-0.06 code = 3499978369) LYMPH x10^3 (test code 1.81 10*3/uL 1.09-3.23 = 731-0) MONO x10^3 (test code 1.20 10*3/uL 0.36-1.02 H = 742-7) EOS x10^3 (test code = 0.31 10*3/uL 0.06-0.53 711-2) BASO x10^3 (test code 0.06 10*3/uL 0.01-0.09 = 704-7) Lab Interpretation Abnormal (test code = 47270-4) [facility]
[2023-04-29] MEDS ORDERED: ALBUTEROL 2.5 MG/3 ML NEB SOL ONE ×2 (02:10→02:11)
[2023-04-29 02:16] LABS: Absolute Lymphocytes (CBC) 2.1 K/uL (0.7-4.9); Lymphocytes % 18.4 % (15.3-44.8); MCV 83.9 fL (80-100); MPV 8.8 fL (7.6-11.3); Platelets 224 thou/uL (152-406); RBC Red Blood Cell Count 4.64 M/uL (4.33-5.43)
[2023-04-29 02:35] LABS: Albumin 2.9 g/dL (3.4-5.0); Bilirubin Total 0.3 mg/dL (0.2-1.0); Potassium 3.6 mEq/L (3.5-5.1); Protein, Total 7.1 g/dL (6.4-8.2)
[2023-04-29 02:36] LABS: Troponin High Sensitivity 60.3 pg/mL (<58.9)
[2023-04-29] MEDS ORDERED: ASPIRIN EC 81 MG TAB PO ONE (02:54)
--- NOTE | 2023-04-29 03:39 | EDPHYS ---
Physician Documentation [facility] Name: Lauri Redmond Age: 47 yrs Sex: Male : 1975 Arrival Date: 04/29/2023 Time: 01:58 Bed 3 Private MD: ED Physician Bethanie Daugherty HPI: 04/29 02:03 This 47 yrs old Male presents to ER via EMS with complaints of SOB. sd2 02:03 47 yo M presents via EMS with CC of SOB. Unknown full history but patient reports sd2 worsening SOB for at least the past couple of days. Denies CP. States hx of HTN but no known lung issues. Upon EMS's arrival, pt in respiratory distress with sats of 80% on room air. 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 Transitioned to BIPAP upon arrival to the ER. patient is able to speak in short sentences. Reports chronic smoking history and that he has been compliant with his BP medications. . Historical: - Allergies: 01:59 No Known Allergies; as6 - PMHx: 01:59 Back pain; Hypertension; as6 - Immunization history:: Adult Immunizations unknown. - Social history:: Smoking status: Patient reports the use of cigarette tobacco products, smokes two packs cigarettes per day. ROS: 02:03 Constitutional: Negative for fever, chills, and weight loss, Eyes: Negative for injury, sd2 pain, redness, and discharge, Cardiovascular: Negative for chest pain, palpitations, and edema, 02:03 Abdomen/GI: Negative for abdominal pain, nausea, vomiting, diarrhea. MS/Extremity: Negative for injury and deformity, Skin: Negative for injury, rash, and discoloration, Neuro: Negative for headache, numbness and tingling. 02:03 Respiratory: Positive for shortness of breath, wheezing, Negative for Exam: 02:03 Constitutional: This is a well developed, well nourished patient who is awake, alert, sd2 and in no acute distress. Head/Face: Normocephalic, atraumatic. Eyes: EOMI, normal conjunctiva bilaterally Chest/axilla: Normal chest wall appearance and motion. Nontender with no deformity. Cardiovascular: Tachycardic rate and regular rhythm, 2+ distal pulses Respiratory: Pt with increased WOB and subcostal retractions with occasional expiratory wheezing and limited air entry bilaterally, no stridor Abdomen/GI: Soft, non-tender, with normal bowel sounds. No guarding or rebound. No evidence of tenderness throughout. Skin: Warm, dry with normal turgor. Normal color with no rashes, no lesions, and no evidence of cellulitis. MS/ Extremity: Pulses equal, no cyanosis. Neurovascular intact. Full, normal range of motion. Psych: Awake, alert, with orientation to person, place and time. Behavior, mood, and affect are within normal limits. 02:32 ECG was reviewed by the Attending Physician. Sinus tachycardia, rate 128, no STEMI sd2 criteria, wandering baseline present, will repeat 02:46 ECG was reviewed by the Attending Physician. Sinus tachycardia, rate 129, ST morphology sd2 improving, doubt STEMI, consistent with LVH w/repolarization changes, will continue to monitor Vital Signs: 02:00 BP 205 / 143; Pulse 143; Resp 35 S; Temp 97.5(TE); Pulse Ox 93% on BiPAP; FiO2 100 %; as6 Weight 90.72 kg (M); 02:30 BP 170 / 112; Pulse 128; Resp 21; Pulse Ox 100% on BiPAP; FiO2 35 %; rv 03:00 BP 170 / 108; Pulse 122; Resp 23; Pulse Ox 98% on BiPAP; FiO2 35 %; rv 04:00 BP 161 / 107; Pulse 116; Resp 20; Pulse Ox 100% on BiPAP; FiO2 35 %; rv 05:00 BP 155 / 106; Pulse 107; Resp 20; Pulse Ox 100% on BiPAP; FiO2 35 %; rv 05:30 BP 159 / 103; Pulse 105; Resp 20; Pulse Ox 97% on BiPAP; FiO2 35 %; rv 06:30 BP 142 / 99; Pulse 96; Resp 20; Pulse Ox 97% ; jj7 08:00 BP 151 / 103; Pulse 86; Resp 18; Pulse Ox 99% on 35 lpm BiPAP; hb [place] Coma Score: 03:00 Eye Response: spontaneous(4). Motor Response: obeys commands(6). Verbal Response: rv oriented(5). Total: 15. 04:00 Eye Response: spontaneous(4). Motor Response: obeys commands(6). Verbal Response: rv oriented(5). Total: 15. 05:00 Eye Response: spontaneous(4). Motor Response: obeys commands(6). Verbal Response: rv oriented(5). Total: 15. 05:30 Eye Response: spontaneous(4). Motor Response: obeys commands(6). Verbal Response: rv oriented(5). Total: 15. MDM: 02:00 Patient medically screened. sd2 02:03 Differential Diagnosis Differential diagnosis includes but is not limited to: ACS, sd2 DVT/PE, pneumothorax, dissection, musculoskeletal, anxiety, anemia, electrolyte abnormality, pneumonia, CHF, COPD among others. Data reviewed: vital signs, nurses notes, EMS record, lab test result(s), EKG, radiologic studies. I considered the following discharge prescriptions or medication management in the emergency department Medications were administered in the Emergency Department. See MAR. Historians other than the Patient: EMS: provides initial report. Care significantly affected by the following chronic conditions: Hypertension. Counseling: I had a detailed discussion with the patient and/or guardian regarding. 04:22 ED course: Labs and imaging reviewed. Consistent with possible CHF/flash pulmonary sd2 edema likely 2/2 patient's uncontrolled hypertension. Initial trop elevated and uptrending on repeat with no significant EKG changes noted. 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 Will accept the patient for transfer at this time. Pt currently stable for transfer. . 04/29 02:02 Order name: CBC with Diff; Complete Time: 02:37 sd2 04/29 02:02 Order name: CMP; Complete Time: 02:37 sd2 04/29 02:02 Order name: Magnesium; Complete Time: 02:37 sd2 04/29 02:02 Order name: Troponin High Sensitivity; Complete Time: 02:37 sd2 04/29 02:02 Order name: BNP; Complete Time: 02:37 sd2 04/29 03:00 Order name: Troponin High Sensitivity; Complete Time: 03:32 rv 04/29 02:02 Order name: XRAY Chest (1 view) sd2 04/29 06:04 Order name: BIPAP sd2 04/29 02:02 Order name: EKG - Nurse/Tech; Complete Time: 02:35 sd2 04/29 02:41 Order name: EKG - Nurse/Tech; Complete Time: 02:50 sd2 Administered Medications: 02:14 Drug: Albuterol Inhalation 10 mg Inhalation once Route: Inhalation; rv 05:28 Follow up: Response: No adverse reaction rv 02:14 Drug: NS 0.9% IV 500 ml IV at bolus once Route: IV; Rate: bolus; Site: right rv antecubital; 05:28 Follow up: IV Status: Completed infusion rv 02:45 Drug: Aspirin PO Chewable Tablet 324 mg PO once; 81 mg tablets x 4 Route: PO; jj7 05:28 Follow up: Response: No adverse reaction rv Disposition Summary: 04/29/23 03:38 Transfer Ordered Notes: Transfer Location: [facility] sd2 Reason: Higher level of care sd2 Condition: Stable sd2 Problem: new sd2 Symptoms: have improved sd2 Accepting Physician: Accepting Physician(04/29/23 08:36) hb Diagnosis - Acute respiratory failure with hypoxia sd2 - Subsequent non-ST elevation (NSTEMI) myocardial infarction sd2 Forms: - Medication Reconciliation Form sd2 - SBAR form sd2 Critical care time excluding procedures: 04:50 Critical care time: Bedside Care: 45 minutes, Consultation: 10 minutes, Family sd2 Intervention: 5 minutes. Total time: 60 minutes Signatures: Dispatcher [employer] EDMS Lisa Mohamud RN RN Phong Gallegos RN RN rv Jace Ray RN RN as6 Bethanie Daugherty MD MD sd2 Evans Peacock RN RN jj7 Corrections: (The following items were deleted from the chart) 04:30 04:22 ED course: Labs and imaging reviewed. Consistent with possible CHF/flash sd2 pulmonary edema likely 2/2 patient's uncontrolled hypertension. Initial trop elevated and uptrending on repeat with no significant EKG changes noted. Discussed case with CCU attending at [facility] [place] due to . sd2 08:36 03:38 Accepting Physician sd2 hb
--- NOTE | 2023-04-29 03:39 | ER ---
Nurse's Notes [facility] Name: Lauri Redmond Age: 47 yrs Sex: Male : 1975 Arrival Date: 04/29/2023 Time: 01:58 Bed 3 Private MD: Diagnosis: Acute respiratory failure with hypoxia;Subsequent non-ST elevation (NSTEMI) myocardial infarction Presentation: 04/29 02:01 Chief complaint: EMS states: called out for shortness of breath. in route to ER EMS as6 place pt on CPAP, gave A\T\A breathing tx x 2 and Solu Medrol. Coronavirus screen: At this time, the client does not indicate any symptoms associated with coronavirus-19. Ebola Screen: No symptoms or risks identified at this time. Initial Sepsis Screen: Does the patient meet any 2 criteria? No. Patient's initial sepsis screen is negative. Does the patient have a suspected source of infection? No. Patient's initial sepsis screen is negative. Risk Assessment: Do you want to hurt yourself or someone else? Patient reports no desire to harm self or others. Onset of symptoms was April 29, 2023. Care prior to arrival: Medication(s) given: Albuterol Neb x 2, Atrovent Neb x 2, IV initiated. 20 GA, in the right antecubital area. 02:01 Method Of Arrival: EMS: [facility] as6 02:01 Acuity: NORMA 2 as6 Historical: - Allergies: 01:59 No Known Allergies; as6 - PMHx: 01:59 Back pain; Hypertension; as6 - Immunization history:: Adult Immunizations unknown. - Social history:: Smoking status: Patient reports the use of cigarette tobacco products, smokes two packs cigarettes per day. Screenin:14 [facility] [place] ED Fall Risk Assessment (Adult) History of falling in the last 3 months, rv including since admission No falls in past 3 months (0 pts) Confusion or Disorientation No (0 pts) Intoxicated or Sedated No (0 pts) Mobility Assist Device Used Score/Fall Risk Level 0 - 2 = Low Risk Oriented to surroundings, Maintained a safe environment, Educated pt \T\ family on fall prevention, incl call for assistance when getting out of bed, Assessed \T\ reinforced patient's understanding of fall precautions, Provided non-skid footwear, Hourly rounding (assess needs \T\ fall precautionary measures) done, Used ambulatory aids as needed (educated on \T\ assisted with), Used gait belt as appropriate. Abuse screen: Denies threats or abuse. Denies injuries from another. Nutritional screening: No deficits noted. Tuberculosis screening: No symptoms or risk factors identified. Assessment: 02:14 General: Appears ill, Behavior is agitated. Pain: Denies pain. Neuro: Level of rv Consciousness is awake, alert, obeys commands, Oriented to person, place, time, situation. Cardiovascular: Capillary refill < 3 seconds Rhythm is sinus tachycardia. Respiratory: Respiratory effort is labored, using tripod position, Breath sounds with wheezes bilaterally. GI: No signs and/or symptoms were reported involving the gastrointestinal system. : No signs and/or symptoms were reported regarding the genitourinary system. 03:00 Reassessment: PT IS COMFORTABLE, VITAL SIGNS STABLE. rv 04:00 Reassessment: Patient is alert, oriented x 3, equal unlabored respirations, skin rv warm/dry/pink. Respiratory: Respiratory effort is unlabored. 04:45 Reassessment: PT VERBALLY CONSENTED FOR TRANSFER. rv 05:00 Reassessment: Patient is alert, oriented x 3, equal unlabored respirations, skin rv warm/dry/pink. 05:26 Reassessment: REPORT GIVEN TO IDRIS ALBERTO. rv 07:12 Reassessment: REPORT GIVEN TO DAY SHIFT NURSES. jj7 08:01 Reassessment: Patient appears in no apparent distress at this time. Patient and/or hb family updated on plan of care and expected duration. Pain level reassessed. Vital Signs: 02:00 BP 205 / 143; Pulse 143; Resp 35 S; Temp 97.5(TE); Pulse Ox 93% on BiPAP; FiO2 100 %; as6 Weight 90.72 kg (M); 02:30 BP 170 / 112; Pulse 128; Resp 21; Pulse Ox 100% on BiPAP; FiO2 35 %; rv 03:00 BP 170 / 108; Pulse 122; Resp 23; Pulse Ox 98% on BiPAP; FiO2 35 %; rv 04:00 BP 161 / 107; Pulse 116; Resp 20; Pulse Ox 100% on BiPAP; FiO2 35 %; rv 05:00 BP 155 / 106; Pulse 107; Resp 20; Pulse Ox 100% on BiPAP; FiO2 35 %; rv 05:30 BP 159 / 103; Pulse 105; Resp 20; Pulse Ox 97% on BiPAP; FiO2 35 %; rv 06:30 BP 142 / 99; Pulse 96; Resp 20; Pulse Ox 97% ; jj7 08:00 BP 151 / 103; Pulse 86; Resp 18; Pulse Ox 99% on 35 lpm BiPAP; hb [place] Coma Score: 03:00 Eye Response: spontaneous(4). Motor Response: obeys commands(6). Verbal Response: rv oriented(5). Total: 15. 04:00 Eye Response: spontaneous(4). Motor Response: obeys commands(6). Verbal Response: rv oriented(5). Total: 15. 05:00 Eye Response: spontaneous(4). Motor Response: obeys commands(6). Verbal Response: rv oriented(5). Total: 15. 05:30 Eye Response: spontaneous(4). Motor Response: obeys commands(6). Verbal Response: rv oriented(5). Total: 15. ED Course: 01:59 Patient arrived in ED. sb4 01:59 Bethanie Daugherty MD is Attending Physician. sd2 01:59 Arm band placed on. as6 02:03 Triage completed. as6 02:14 Patient has correct armband on for positive identification. Client placed on continuous rv cardiac and pulse oximetry monitoring. NIBP monitoring applied. air sampling and monitoring on. 02:14 Maintain EMS IV. Dressing intact. Good blood return noted. Site clean \T\ dry. Gauge \T\ rv site: 20 RAC. 02:18 Evans Peacock RN is Primary Nurse. jj7 02:32 XRAY Chest (1 view) In Process Unspecified. EDMS 03:[address] [facility]. mc5 04:34 Patient accepted to [place] [id number] Rice[address] mc5 04:40 Contacted [facility], 6:30 ETA given. Contacted [facility] and was given 8:30 mc5 ETA. 05:26 No provider procedures requiring assistance completed. Patient transferred, IV remains rv in place. 06:20 [facility] maid supervisor just called saying they do not have a job training specialist on duty eb till after 8 /. Administered Medications: 02:14 Drug: Albuterol Inhalation 10 mg Inhalation once Route: Inhalation; rv 05:28 Follow up: Response: No adverse reaction rv 02:14 Drug: NS 0.9% IV 500 ml IV at bolus once Route: IV; Rate: bolus; Site: right rv antecubital; 05:28 Follow up: IV Status: Completed infusion rv 02:45 Drug: Aspirin PO Chewable Tablet 324 mg PO once; 81 mg tablets x 4 Route: PO; jj7 05:28 Follow up: Response: No adverse reaction rv Medication: 02:14 VIS not applicable for this client. rv Outcome: 03:38 ER care complete, transfer ordered by MD. muñoz 05:26 Transferred by ground EMS to [facility], X-rays sent w/ rv patient. 05:26 Condition: stable 05:26 Instructed on the need for transfer, 08:36 Patient left the ED. hb Signatures: Dispatcher [employer] EDMS Lisa Mohamud RN RN Mireya Camejo Ronaldo, RN RN rv Jace Ray RN RN as6 Bethanie Daugherty MD MD sd2 Johnson, Juwairiyah RN RN jjMarely Rouse, PA-C PA-C sb4 Leida Monique mc5 Corrections: (The following items were deleted from the chart) 06:07 06:06 Contacted [facility], 6:30 ETA given. Contacted [facility] and was mc5 given 8:30 ETA mc5
[2023-04-29 08:42] VITALS: TEMP 97.5
[2023-04-29 08:49] VITALS: BP 151/103; O2SAT 99
--- NOTE | 2023-04-30 09:56 | RAD REPORT ---
EXAM DESCRIPTION: RAD - Chest Single View - 04/29/2023 2:30 am CLINICAL HISTORY: The patient is 47 years old and is Male; SOB TECHNIQUE: Frontal view of the chest. COMPARISON: No relevant prior studies available. FINDINGS: Lungs: Prominent interstitial markings suggestive of interstitial edema. No consolidatio n. Pleural space: Unremarkable. No pneumothorax. Heart: Unremarkable. Mediastinum: Unremarkable. Bones/joints: No acute findings. IMPRESSION: Prominent interstitial markings suggestive of interstitial edema. No consolidation. Electronically signed by: Miguel Singh MD 04/29/2023 2:47 AM CDT Due to temporary technical issues with the PACS/Fluency reporting system, reports are being signed by the in house radiologist without review as a courtesy to ensure prompt reporting. The interpreting r adiologist is fully responsible for the content of the report.
--- NOTE | 2023-04-30 12:18 | EKG ---
Test Date: 2023-04-29 Test Time: 02:44:[address] Forms: DINESH MEASUREMENT RESULTS: Intervals: Rate: 129 IN: 172 QRSD: 80 QT: 294 QTc: 430 [place]: P: 78 IN: 172 QRS: 81 T: 76 INTERPRETIVE STATEMENTS: Sinus tachycardia Inferior infarct, possibly acute Anterior infarct, possibly acute Lateral injury pattern ACUTE MS Abnormal ECG Compared to ECG 07/21/2021 18:01:46 Myocardial infarct finding now present Electronically Signed On 04-30-23 12:15:13 CDT by Dat Hamilton
== END 2023-04-29 08:36 | disposition short-term general hospital (02) ==
LOC: ER 01:58
DX: J96.01 Acute respiratory failure with hypoxia (principal); I22.2 Subsequent non-ST elevation (NSTEMI) myocardial infarction; I21.9 Acute myocardial infarction, unspecified; I10 Essential (primary) hypertension; F17.210 Nicotine dependence, cigarettes, uncomplicated
CPT/HCPCS: 96361; 93005; 85025; 36415; 83735; 84484 ×2; 80053; 83880; 71045; 96360; 99285; 94660; J7613 ×2

== ENCOUNTER 2023-05-19 00:59 | Emergency (ER) | payer OTHER ==
--- OUTSIDE RECORDS SUMMARY | 2023-05-19 01:10 | XMS REPORT | Continuity of Care Document ---
:1975 Author Organization [facility] t Address [address] [facility] [address] [place] [address] Care Team Providers Name Role Phone Robbie Dior MD Primary Care Physician BRICE GELLER Attending Clinician Unavailable Doctor Unassigned, [place] Attending Clinician Unavailable Robbie Dior MD Attending Clinician Yanet Frazier LVN Attending Clinician [facility] Attending Clinician PAYTON JACINTO Attending Clinician Unavailable Heriberto Rice MD Attending Clinician Eliel Ramirez MD Attending Clinician Payton Jacinto MD Attending Clinician Hosea Rice MD Attending Clinician Betty Castellon MD Attending Clinician ROBBIE DIOR Attending Clinician Unavailable Only, [facility] Test Attending Clinician Unavailable Brice Geller MD Attending Clinician Pob, [facility] Lab Main Attending Clinician Unavailable RICHAR MCKEON Attending Clinician Unavailable Avery Gandhi MD Attending Clinician AVERY GANDHI Attending Clinician Unavailable 2, [facility] Lab Attending Clinician Unavailable Pc, [facility] Echo Room 1 - Attending Clinician Unavailable Sivakumar Luevano MD Attending Clinician SIVAKUMAR LUEVANO Attending Clinician Unavailable RAJAT MAYA Attending Clinician Unavailable Lab, Adc Fam Pob I Attending Clinician Unavailable Rajat Alston Attending Clinician BETTY CASTELLON Attending Clinician Unavailable Pob1, Acute Care Clinic Attending Clinician Unavailable BRICE GELLER Admitting Clinician Unavailable PAYTON JACINTO Admitting Clinician Unavailable Payton Jacinto MD Admitting Clinician Brice Geller MD Admitting Clinician Payers Payer Name Policy Type Policy Number Effective Date Expiration Date Richardson chavez [facility] [id number] 2018 00:00:00 PLUS Problems Condition Condition Condition Status Onset Resolution Last Treating Co mments Source Name Details Category Date Date Treatment Clinician Date Shortness Shortness Disease Active 2022-07 Uni vers of breath of breath 0-08 ity of 00:00: [place] 00 Medical Branch Irritabili Irritabili Disease Active U nivers ty and ty and 4-28 ity of anger anger 00:00: [place] 00 Medical Branch Anxiety, Anxiety, Disease Active Unive rs generalize generalize 4-28 it y of d d 00:00: [place] 00 Medical Branch 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 00:00: [place] Laceration Laceration Disease Active U nivers of right of right 4-28 ity of hand hand 00:00: [place] without without 00 Medical foreign foreign Branch body, body, sequela sequela Dyslipidem Dyslipidem Disease Active U nivers ia ia 4-28 ity of 00:00: [place] 00 Medical Branch Acute Acute Disease Active 2019-07 Univers viral viral 2-29 ity of sinusitis sinusitis 00[place] [facility] [place] Erectile Erectile Disease Active Unive rs dysfunctio dysfunctio 03-23 it y of n, n, 00:00: [place] unspecifie unspecifie 00 Me dical d erectile d erectile Br anch dysfunctio dysfunctio n type n type Bilateral Bilateral Disease Active Uni vers leg pain leg pain 03-23 ity of 00:00: [place] [facility] Erectile Erectile Disease Active Unive rs dysfunctio dysfunctio 03-23 it y of n, n, 00:00: [place] unspecifie unspecifie 00 Me dical d erectile d erectile Br anch dysfunctio dysfunctio n type n type Dizziness Dizziness Disease Active Uni vers 02-18 ity of 00:00: [place] [facility] Intermitte Intermitte Disease Active U nivers nt chest nt chest 02-18 ity of pain pain 00:00: [place] [facility] Hypertensi Hypertensi Disease Active U nivers ve urgency ve urgency 11-12 it y of 00:00: [place] [facility] Suspected Suspected Disease Active Uni vers COVID-19 COVID-19 11-12 ity of virus virus 00:00: [place] infection infection [facility] Cigarette Cigarette Disease Active Uni vers nicotine nicotine 11-12 ity of dependence dependence 00:00[place] without without 00 Medical complicati complicati Br anch on on Cough Cough Disease Active Univers 4- ity of 00:00: [place] 00 [facility] Diarrhea, Diarrhea, Disease Active Uni vers unspecifie unspecifie 11-12 it y of d type d type 00:00: [place] [facility] Other Other Disease Active Univers headache headache 11-12 ity of syndrome syndrome 00:00: [place] 00 [facility] Tobacco Tobacco Disease Active Univers dependence dependence 11-12 it y of 00:00: [place] 00 [facility] Anesthesia Anesthesia Disease Active Overview : [...] and ity of back pain [place] [facility] Acid Acid Disease Active Univers reflux [...] Branch drug HYDROCOD DRUG Active Low N/V 2017-0 Univers ONE-ACET 12-07 ity of AMINOPHE 00:00: [place] N 00 Medical Branch Social History Social Habit Start Date Stop Date Quantity Comments Source Sexual orientation Univer sity [facility] Exposure to Not sure University of SARS-CoV-2 (event) [facility] Branch History of tobacco Cigarette Smoker University of use [facility] Branch History SDOH University o f Alcohol Frequency [facility] edical Branch History SDOH University o f Alcohol Std Drinks [facility] Branch History SDWA University o f Alcohol Binge [facility] al Branch Alcohol intake 2020-12-10 2020-12-10 Current drinker Unive rsity of 00:00:00 00:00:00 of alcohol [facility] (finding) Branch History of Social 2020-11-29 2020-11-29 Univers ity of function 00:00:00 00:00:00 [place] [facility] Cigarettes smoked 2016-12-07 2016-12-07 Univers ity of current (pack per 00:00:00 00:00:00 [facility] ) - Reported Branch Tobacco use and 2016-12-07 2016-12-07 Smokeless tobacco Un iversity of exposure 00:00:00 00:00:00 non-user [facility] Alcohol Comment 2016-12-07 2016-12-07 Occasional Universit y of 00:00:00 00:00:00 Drinker [facility] Sex [birth year] Universit y of 00:00:00 00:00:00 [facility] Smoking Status Start Date Stop Date Source Smokes tobacco daily 2016-12-07 00:00:00 Univers ity of [facility] Medications Ordered Filled Start Stop Current Ordering Indication Dosage Frequency Signature Comments Components Source Medication Medication Date Date Medication? Clinician (SIG) Name Name aspirin 81 2022-07 Yes [id number] 81mg Take 1 U nivers mg chewable 0-12 tablet by ity of tablet 00:00: mouth in [place] 00 the Medical morning. Branch clopidogreL 2022-07 Yes [id number] 75mg Take 1 Univers 75 mg 0-12 tablet by ity of tablet 00:00: mouth in [place] 00 the Medical morning. Branch aspirin 81 2022-07 Yes [id number] 81mg Take 1 U nivers mg chewable 0-12 tablet by ity of tablet 00:00: mouth in [place] 00 the Medical morning. Branch clopidogreL 2022-07 Yes [id number] 75mg Take 1 Univers 75 mg 0-12 tablet by ity of tablet 00:00: mouth in [place] 00 the Medical morning. Branch aspirin 81 2022-07 Yes [id number] 81mg Take 1 U nivers mg chewable 0-12 tablet by ity of tablet 00:00: mouth in [place] 00 the Medical morning. Branch clopidogreL 2022-07 Yes [id number] 75mg Take 1 Univers 75 mg 0-12 tablet by ity of tablet 00:00: mouth in [place] 00 the Medical morning. Branch aspirin 81 2022-07 Yes [id number] 81mg Take 1 U nivers mg chewable 0-12 tablet by ity of tablet 00:00: mouth in [place] 00 the Medical morning. Branch clopidogreL 2022-07 Yes [id number] 75mg Take 1 Univers 75 mg 0-12 tablet by ity of tablet 00:00: mouth in [place] 00 the Medical morning. Branch aspirin 81 2022-07 Yes [id number] 81mg Take 1 U nivers mg chewable 0-12 tablet by ity of tablet 00:00: mouth in [place] 00 the Medical morning. Branch clopidogreL 2022-07 Yes [id number] 75mg Take 1 Univers 75 mg 0-12 tablet by ity of tablet 00:00: mouth in [place] 00 the Medical morning. Branch lisinopriL 2022-07- No 40mg Take 1 Univ ers 40 mg 0-11 10-11 tablet by ity of tablet 13:44: 00:00 mouth in [place] 51 :00 the Medical morning. Branch KCL 2022-07- No 20meq 20 mEq, Univers (KLOR-CON 0-11 10-11 Oral, ity of M20) tablet 08:15: 11:17 ONCE, 1 [place] 20 mEq 00 :00 dose, On Medical Wed Branch 05/02/23 at 0315, Routine atorvastati 2022-07 Yes [id number] 40mg Take 1 Univers n 40 mg 0-11 tablet by ity of tablet 00:00: mouth at [place] [address] bedtime. Medical Branch carvediloL 2022-07 Yes [id number] 25mg Take 1 U nivers 25 mg 0-11 tablet by ity of tablet 00:00: mouth in [place] 00 the Medical morning Branch and 1 tablet in the evening. Take with meals. isosorbide 2022-07 Yes [id number] 10mg Take 1 U nivers dinitrate 0-11 tablet by ity o f 10 mg 00:00: mouth in [place] tablet 00 the Medical morning Branch and 1 tablet at noon and 1 tablet in the evening. atorvastati 2022-07 Yes [id number] 40mg Take 1 Univers n 40 mg 0-11 tablet by ity of tablet 00:00: mouth at [place] 00 bedtime. Medical Branch carvediloL 2022-07 Yes [id number] 25mg Take 1 U nivers 25 mg 0-11 tablet by ity of tablet 00:00: mouth in [place] 00 the Medical morning Branch and 1 tablet in the evening. Take with meals. isosorbide 2022-07 Yes [id number] 10mg Take 1 U nivers dinitrate 0-11 tablet by ity o f 10 mg 00:00: mouth in [place] tablet 00 the Medical morning Branch and 1 tablet at noon and 1 tablet in the evening. atorvastati 2022-07 Yes [id number] 40mg Take 1 Univers n 40 mg 0-11 tablet by ity of tablet 00:00: mouth at [place] 00 bedtime. Medical Branch carvediloL 2022-07 Yes [id number] 25mg Take 1 U nivers 25 mg 0-11 tablet by ity of tablet 00:00: mouth in [place] 00 the Medical morning Branch and 1 tablet in the evening. Take with meals. isosorbide 2022-07 Yes [id number] 10mg Take 1 U nivers dinitrate 0-11 tablet by ity o f 10 mg 00:00: mouth in [place] tablet 00 the Medical morning Branch and 1 tablet at noon and 1 tablet in the evening. atorvastati 2022-07 Yes [id number] 40mg Take 1 Univers n 40 mg 0-11 tablet by ity of tablet 00:00: mouth at [place] 00 bedtime. [facility] carvediloL 2022-07 Yes [id number] 25mg Take 1 U nivers 25 mg 0-11 tablet by ity of tablet 00:00: mouth in [place] 00 the Medical morning Branch and 1 tablet in the evening. Take with meals. isosorbide 2022-07 Yes [id number] 10mg Take 1 U nivers dinitrate 0-11 tablet by ity o f 10 mg 00:00: mouth in [place] tablet 00 the Medical morning Branch and 1 tablet at noon and 1 tablet in the evening. atorvastati 2022-07 Yes [id number] 40mg Take 1 Univers n 40 mg 0-11 tablet by ity of tablet 00:00: mouth at [place] 00 bedtime. Medical Branch carvediloL 2022-07 Yes [id number] 25mg Take 1 U nivers 25 mg 0-11 tablet by ity of tablet 00:00: mouth in [place] 00 the Medical morning Branch and 1 tablet in the evening. Take with meals. isosorbide 2022-07 Yes [id number] 10mg Take 1 U nivers dinitrate 0-11 tablet by ity o f 10 mg 00:00: mouth in [place] tablet 00 the Medical morning Branch and 1 tablet at noon and 1 tablet in the evening. sulfur 2022-07- No [id number] 5mL 5 mL, Unive rs hexafluorid 0-10 10-10 Intravenou i ty of e microsphr 17:15: 15:55 s, ONCE, 1 [place] (LUMASON) 00 :00 dose, On Medica l injection 5 [facility]3] mL 05/01/23 at 1215, Routine
maintenance team member approving Restricted medication : NANDO CARDOSO furosemide 2022-07- No 40mg 40 mg, Univ ers (LASIX) 0-10 10-11 Oral, ity of tablet 40 14:00: 12:42 QAM+PM, [place] mg 00 :49 First dose Medical on [facility]3] 05/01/23 at 0900, Until Discontinu ed, Routine carvediloL 2022-07 Yes 25mg 25 mg, Unive rs (COREG) 0-10 Oral, BID ity of tablet 25 01:00: MEALS, [place] mg 00 First dose Medical (after Branch last modificati on) on Sun04/30/23 at 2000, Until Discontinu ed, Routine carvediloL 2022-07 Yes 25mg 25 mg, Unive rs (COREG) 0-10 Oral, BID ity of tablet 25 01:00: MEALS, [place] mg 00 First dose Medical (after Branch last modificati on) on Sun04/30/23 at 2000, Until Discontinu ed, Routine heparin 2022-07 No 5000U 5,000 Univers 1,000 0- 10-11 Units, ity of unit/mL 23:53: 15:50 Slow IV [place] injection 59 :53 Push, PRN Medic al 5,000 Units - SEE Branch INSTRUCTIO NS, Starting on Sun04/30/23 at 1853, Until Sun05/02/23 at 1050, Routine, If aPTT < 35, bolus 5,000 isosorbide 2022-07 Yes 10mg 10 mg, Unive rs dinitrate 0-09 Oral, ity of (ISORDIL) 23:00: TIDHOL, [place] tablet 10 00 First dose Medi ranjit mg on [facility] 04/30/23 at 1800, Until Discontinu ed, Routine isosorbide 2022-07 Yes 10mg 10 mg, Unive rs dinitrate 0-09 Oral, ity of (ISORDIL) 23:00: TIDHOL, [place] tablet 10 00 First dose Medi ranjit mg on [facility] 04/30/23 at 1800, Until Discontinu ed, Routine carvediloL 2022-07 No 12.5mg 12.5 mg, Univers (COREG) 004-30 Oral, ity of tablet 12.5 20:00: 19:18 ONCE, 1 [place] mg 00 :00 dose, On Medical [facility] 04/30/23 at 1500, Routine spironolact 2022-07 Yes 25mg 25 mg, Univ ers one 0-09 Oral, ity of (ALDACTONE) 19:15: DAILY, [place] tablet 25 00 First dose Medi ranjit mg on [facility] 04/30/23 at 1415, Until Discontinu ed, Routine spironolact 2022-07 No 25mg 25 mg, Uni vers one 0-04 01-11 Oral, ity of (ALDACTONE) 19:15: 12:45 DAILY, [place] as tablet 25 00 :13 First dose Medi ranjit mg on [facility] 04/30/23 at 1415, Until Discontinu ed, Routine carvediloL 2022-07 No 6.25mg 6.25 mg, Univers (COREG) 0-04 01- Oral, ONCE ity o f tablet 6.25 17:00: 16:40 NOW, 1 [place] as mg 00 :00 dose, On Medical Mon Branch 04/30/23 at 1200, Routine HEPARIN 2022-07- No 2000U 2,000 Univers SODIUM 0-09 10-09 Units, IV ity of (PORCINE) 16:30: 16:38 Push, [place] 1,000 00 :00 ONCE, 1 Medical UNIT/ML dose, On Branch BOLUS ACS Mon ORDER SET 04/30/23 at 1130, GEMINI heparin 2022-07 Yes 0U/h 0-2,750 Univers 25,000 0-09 Units/hr ity of Units/250 16:16: (0-27.5 [place] mL 15 mL/hr), IV Medical (Premixed Infusion, Bran h Bag) in D5W TITRATE, Parameters in Admin. Instr., Starting on Sun04/30/23 at 1116
In itiate dosing:&nb sp; & nbsp;&nbsp ; -Patient 83 kg or under: 1,000 Units/hr (Calculate d dose at 12 units/kg/h r) &n bsp; &nbs p; -Patient over 83 k,000 units/hr&n bsp;DO NOT Exceed the MAXIMUM 1,000 units/hr for initiation of heparin drip.&nbsp ; CAU TION - If LMWH given in ER, AVOID bolus and start next dose/drip 12 hrs after ER dosage.&nb sp; M ust program rate using programmab le infusion pump.&nbsp ; Stephanie ck with the ordering provider first prior to any administra tion should the patient be on existing/a dditional anticoagul ant therapy. Rang e, Dosing and Testing: &nbs p;FOR [facility], [facility], AND [facility] ONLY &nbs p; - aPTT < 35: & nbsp;Bolus 5000 units, increase rate 300 units/hr&n bsp; - aPTT 35-44:&nbs p; Kaushik ariane 3000 units, increase rate 200 units/hr&n bsp; - aPTT 45-54:&nbs p; In crease rate 100 units/hr&n bsp; - aPTT 55-85:&nbs p; NO CHANGE&nbs p; - aPTT 86-95:&nbs p; De crease rate 100 units/hr&n bsp; - aPTT 96-120:&nb sp; H old 30 minutes, decrease rate 150 units/hr&n bsp; - aPTT > 120: Hold 60 minutes, decrease rate 200 units/hr&n bsp; Check aPTT 6 hours after initiation , then Q6H after every change, aPTT Q12H once therapeuti c levels are reached.&n bsp; &nbs p; __ &n bsp;FOR [facility] ONLY - aPTT < 40: & nbsp;Bolus 5000 units, increase rate 300 units/hr&n bsp; - aPTT 40-49:&amp ;nbsp;&nbs p;Bolus 3000 units, increase rate 200 units/hr&n bsp; - aPTT 50-59:&nbs p; In crease rate 100 units/hr&n bsp; - aPTT 60-85:&nbs p; NO CHANGE&nbs p; - aPTT 86-95:&nbs p; De crease rate 100 units/hr&n bsp; - aPTT 96-120:&nb sp; H old 30 minutes, decrease rate 150 units/hr&n bsp; - aPTT > 120: Hold 60 minutes, decrease rate 200 units/hr&n bsp; Check aPTT 6 hours after initiation , then Q6H after every change, aPTT Q12H once therapeuti c levels are reached.&n bsp; DO NOT ADJUST INITIAL BOLUS OR INITIAL INFUSION RATE.
heparin 2022-2022- No 0U/h 0-2,750 Univer s 25,000 0-09 10-11 Units/hr ity of Units/250 16:16: 15:50 (0-27.5 [place] mL 15 :53 mL/hr), IV Medical (Premixed Infusion, Branc h Bag) in D5W TITRATE, Parameters in Admin. Instr., Starting on Sun04/30/23 at 1116
In itiate dosing:&nb sp; & nbsp;&nbsp ; -Patient 83 kg or under: 1,000 Units/hr (Calculate d dose at 12 units/kg/h r) &n bsp; &nbs p; -Patient over 83 k,000 units/hr&n bsp;DO NOT Exceed the MAXIMUM 1,000 units/hr for initiation of heparin drip.&nbsp ; CAU TION - If LMWH given in ER, AVOID bolus and start next dose/drip 12 hrs after ER dosage.&nb sp; M ust program rate using programmab le infusion pump.&nbsp ; Stephanie ck with the ordering provider first prior to any administra tion should the patient be on existing/a dditional anticoagul ant therapy. Rang e, Dosing and Testing: &nbs p;FOR [facility], [facility], AND [facility] ONLY &nbs p; - aPTT < 35: & nbsp;Bolus 5000 units, increase rate 300 units/hr&n bsp; - aPTT 35-44:&nbs p; Kaushik ariane 3000 units, increase rate 200 units/hr&n bsp; - aPTT 45-54:&nbs p; In crease rate 100 units/hr&n bsp; - aPTT 55-85:&nbs p; NO CHANGE&nbs p; - aPTT 86-95:&nbs p; De crease rate 100 units/hr&n bsp; - aPTT 96-120:&nb sp; H old 30 minutes, decrease rate 150 units/hr&n bsp; - aPTT > 120: Hold 60 minutes, decrease rate 200 units/hr&n bsp; Check aPTT 6 hours after initiation , then Q6H after every change, aPTT Q12H once therapeuti c levels are reached.&n bsp; &nbs p; __ &n bsp;FOR [facility] ONLY - aPTT < 40: & nbsp;Bolus 5000 units, increase rate 300 units/hr&n bsp; - aPTT 40-49:&amp ;nbsp;&nbs p;Bolus 3000 units, increase rate 200 units/hr&n bsp; - aPTT 50-59:&nbs p; In crease rate 100 units/hr&n bsp; - aPTT 60-85:&nbs p; NO CHANGE&nbs p; - aPTT 86-95:&nbs p; De crease rate 100 units/hr&n bsp; - aPTT 96-120:&nb sp; H old 30 minutes, decrease rate 150 units/hr&n bsp; - aPTT > 120: Hold 60 minutes, decrease rate 200 units/hr&n bsp; Check aPTT 6 hours after initiation , then Q6H after every change, aPTT Q12H once therapeuti c levels are reached.&n bsp; DO NOT ADJUST INITIAL BOLUS OR INITIAL INFUSION RATE.
heparin 2022-07 Yes 3000U FOR Univers (1,000 0-09 REBOLUSING ity of unit/mL, 10 16:16: , Starting [place] mL vial) 12 on [facility] for 04/30/23 at [place] [address], Until Discontinu ed, Routine
Dosing based on aPPT testing parameters (refer to continuous heparin drip order).
heparin 2022-07 3000U FOR Univers (1,000 0-09 10-11 REBOLUSING ity of unit/mL, 10 16:16: 15:50 , Starting [place] mL vial) 12 :53 on [facility] for 04/30/23 at [place] [address], Until Sun05/02/23 at 1050, Routine
Dosing based on aPPT testing parameters (refer to continuous heparin drip order).
acetaminoph 2022-07 Yes 1{tbl} 1 tablet, Univers en-codeine 0-09 Oral, ity of (TYLENOL 16:14: Q6HPRN, [place] #3) 300-30 26 Starting Medic al mg tablet 1 on [place] tablet 04/30/23 at 1114, Until Discontinu ed, Routine, Pain (scale 4-6) acetaminoph 2022-07 Yes 1{tbl} 1 tablet, Univers en-codeine 0-09 Oral, ity of (TYLENOL 16:14: Q6HPRN, [place] #3) 300-30 26 Starting Medic al mg tablet 1 on [place] tablet 04/30/23 at 1114, Until Discontinu ed, Routine, Pain (scale 4-6) lisinopriL 2022-07 Yes 40mg 40 mg, Unive rs (PRINIVIL,Z 0-09 Oral, ity of ESTRIL) 14:00: DAILY, [place] tablet 40 00 First dose Medi ranjit mg (after Branch last modificati on) on Sun04/30/23 at 0900, Until Discontinu ed, Routine clopidogreL 2022-07 Yes 75mg 75 mg, Univ ers (PLAVIX) 75 0-09 Oral, ity of mg tablet 14:00: DAILY, [place] 75 mg 00 First dose Medical on Sun04/30/23 at 0900, Until Discontinu ed, Routine aspirin 2022-07 Yes 81mg 81 mg, Univers chewable 0-09 Oral, ity of tablet 81 14:00: DAILY, [place] mg 00 First dose Medical on Sun04/30/23 at 0900, Until Discontinu ed, Routine clopidogreL 2022-07 Yes 75mg 75 mg, Univ ers (PLAVIX) 75 0-09 Oral, ity of mg tablet 14:00: DAILY, [place] 75 mg 00 First dose Medical on Sun04/30/23 at 0900, Until Discontinu ed, Routine aspirin 2022-07 Yes 81mg 81 mg, Univers chewable 0-09 Oral, ity of tablet 81 14:00: DAILY, [place] mg 00 First dose Medical on [place] 04/30/23 at 0900, Until Discontinu ed, Routine lisinopriL 2022-07 40mg 40 mg, Univ ers (PRINIVIL,Z 0-09 10-11 Oral, ity of ESTRIL) 14:00: 12:42 DAILY, [place] tablet 40 00 :48 First dose Medi ranjit mg (after Branch last modificati on) on Sun04/30/23 at 0900, Until Discontinu ed, Routine atorvastati 2022-07 Yes 40mg 40 mg, Univ ers n (LIPITOR) 0-09 Oral, QHS, it y of tablet 40 02:00: First dose [place] mg 00 (after Medical last Branch modificati on) on Sun04/29/23 at 2100, Until Discontinu ed, Routine atorvastati 2022-07 Yes 40mg 40 mg, Univ ers n (LIPITOR) 0-09 Oral, QHS, it y of tablet 40 02:00: First dose [place] mg 00 (after Medical last Branch modificati on) on Sun04/29/23 at 2100, Until Discontinu ed, Routine furosemide 2022-07 Yes 40mg 40 mg, Unive rs (LASIX) 0-09 Slow IV ity of injection 01:00: Push, [place] 40 mg 00 Q12H, Medical First dose Branch on Sun04/29/23 at 2000, Until Discontinu ed, Routine furosemide 2022-07- No 40mg 40 mg, Univ ers (LASIX) 005-01 Slow IV ity of injection 01:00: 12:34 Push, [place] 40 mg 00 :27 Q12H, Medical First dose Branch on [place] 04/29/23 at 2000, Until Discontinu ed, Routine metoprolol 2022-07- No 25mg 25 mg, Univ ers succinate 004-30 Oral, ity of XL (TOPROL 00:45: 16:12 DAILY, [place] XL) tablet 00 :52 First dose Med ical 25 mg (after Branch last modificati on) on [place] 04/29/23 at 1945, Until Discontinu ed, Routine lisinopriL 2022-07- No 5mg 5 mg, Unive rs (PRINIVIL,Z 004-30 Oral, ity of ESTRIL) 00:45: 09:58 DAILY, [place] tablet 5 mg 00 :42 First dose Me dical (after Branch last modificati on) on [place] 04/29/23 at 1945, Until Discontinu ed, Routine clopidogreL 2022-07- No ONCE INTRA Univers (PLAVIX) 04-29 PROCEDURE, ity of 300 mg 23:29: 23:45 Starting [place] tablet 20 :42 on [facility] 04/29/23 at Branch 1829, Until [place] 04/29/23 at 1845, Routine, CV Intraproce dure aspirin 2022-07- No ONCE INTRA Uni vers tablet 04-29 PROCEDURE, ity of 23:28: 23:45 Starting [place] 56 :42 on [facility] 04/29/23 at Branch 1828, Until [place] 04/29/23 at 1845, Routine, CV Intraproce dure iodixanol 2022-07- No ONCE INTRA U nivers (VISIPAQUE 04-29 PROCEDURE, it y of 320-100 mL) 23:27: 23:45 Starting [place] injection 47 :42 on [facility] 04/29/23 at Branch 1827, Until [place] 04/29/23 at 1845, Routine, CV Intraproce dure adenosine 6 2022-07- No ONCE INTRA Univers mg/1000 mL 004-29 PROCEDURE, it y of INTRACORONA 23:15: 23:45 [place] RY 16 :42 on [place] Medical injection 04/29/23 at [facility] for CATH 1815, LAB Until 04/29/23 at 1845, Routine, CV Intraproce dure nitroglycer 2022-07- No ONCE INTRA Univers in (TRIDIL) 004-29 PROCEDURE, i ty of 2 mg in 10 22:53: 23:45 [place] mL D5W for 24 :42 on [place] [facility] Cardiac 04/29/23 at [place] Cath 1753, Until 04/29/23 at 1845, Routine, CV Intraproce dure heparin 2022-07- No ONCE INTRA Uni vers 1,000 004-29 PROCEDURE, ity of unit/mL 22:53: 23:45 Starting [place] injection 05 :42 on [place] [facility] 04/29/23 at [place] 1753, Until 04/29/23 at 1845, Routine, CV Intraproce dure lidocaine 2022-07- No ONCE INTRA U nivers 1% (PF) 004-29 PROCEDURE, ity o f (XYLOCAINE) 22:49: 23:45 Starting [place] injection 38 :42 on [place] [facility] 04/29/23 at Branch 1749, Until 04/29/23 at 1845, Routine, CV Intraproce dure midazolam 2022-07- No ONCE INTRA U nivers (VERSED) 004-29 PROCEDURE, ity of injection 22:46: 23:45 Starting [place] as 27 :42 on [place] [facility] 04/29/23 at Branch 1746, Until 04/29/23 at 1845, Routine, CV Intraproce dure FENTanyl PF 2022-07- No ONCE INTRA Univers (SUBLIMAZE 04-29 PROCEDURE, it y of (PF)) 22:46: 23:45 Starting [place] injection 13 :42 on [place] [facility] 04/29/23 at Branch 1746, Until 04/29/23 at 1845, Routine, CV Intraproce dure lisinopriL 2022-07 Yes 40mg Take 1 Unive rs 40 mg 0 tablet by ity of tablet 18:54: mouth in [place] 22 the Medical morning. [place] HEPARIN 2022-07- No 4000U 4,000 Univers SODIUM 0-08 10-08 Units, IV ity of (PORCINE) 18:30: 21:23 [place], [place] 1,000 00 :00 ONCE, 1 Medical UNIT/ML dose, On Branch BOLUS [facility] [place] ORDER SET 04/29/23 at 1330, GEMINI nitroglycer 2022-07- No 5ug/min 5-200 U nivers in 50 mg in 0-08 10-09 mcg/min ity of D5W 250 mL 18:22: 21:31 (1.5-60 [place] as infusion 28 :43 mL/hr), IV Medic al RTU Infusion, Branch TITRATE, SBP <150, Starting on [place] 04/29/23 at 1322
Initiate infusion at 5 mcg/min.&n bsp; Titrate by 5 mcg/min every 3 minutes to 5 minutes as needed to achieve and maintain goal blood pressure. Maximum dose = 200 mcg/min. If goal not maintained at maximum allowed dose, contact prescriber .
heparin 2022-07- No 0U/h 0-2,750 Univer s 25,000 0-08 10-09 Units/hr ity of Units/250 18:21: 05:45 (0-27.5 [place] mL 12 :51 mL/hr), IV Medical (Premixed Infusion, Branc h Bag) in D5W TITRATE, Parameters in Admin. Instr., Starting on [place] 04/29/23 at 1321
In itiate dosing:&nb sp; & nbsp;&nbsp ; -Patient 83 kg or under: 1,000 Units/hr (Calculate d dose at 12 units/kg/h r) &n bsp; &nbs p; -Patient over 83 k,000 units/hr&n bsp;DO NOT Exceed the MAXIMUM 1,000 units/hr for initiation of heparin drip.&nbsp ; CAU TION - If LMWH given in ER, AVOID bolus and start next dose/drip 12 hrs after ER dosage.&nb sp; M ust program rate using programmab le infusion pump.&nbsp ; Stephanie ck with the ordering provider first prior to any administra tion should the patient be on existing/a dditional anticoagul ant therapy. Rang e, Dosing and Testing: &nbs p;FOR [facility], [facility], AND [facility] ONLY &nbs p; - aPTT < 35: & nbsp;Bolus 5000 units, increase rate 300 units/hr&n bsp; - aPTT 35-44:&nbs p; Kaushik ariane 3000 units, increase rate 200 units/hr&n bsp; - aPTT 45-54:&nbs p; In crease rate 100 units/hr&n bsp; - aPTT 55-85:&nbs p; NO CHANGE&nbs p; - aPTT 86-95:&nbs p; De crease rate 100 units/hr&n bsp; - aPTT 96-120:&nb sp; H old 30 minutes, decrease rate 150 units/hr&n bsp; - aPTT > 120: Hold 60 minutes, decrease rate 200 units/hr&n bsp; Check aPTT 6 hours after initiation , then Q6H after every change, aPTT Q12H once therapeuti c levels are reached.&n bsp; &nbs p; __ &n bsp;FOR [facility] ONLY - aPTT < 40: & nbsp;Bolus 5000 units, increase rate 300 units/hr&n bsp; - aPTT 40-49:&amp ;nbsp;&nbs p;Bolus 3000 units, increase rate 200 units/hr&n bsp; - aPTT 50-59:&nbs p; In crease rate 100 units/hr&n bsp; - aPTT 60-85:&nbs p; NO CHANGE&nbs p; - aPTT 86-95:&nbs p; De crease rate 100 units/hr&n bsp; - aPTT 96-120:&nb sp; H old 30 minutes, decrease rate 150 units/hr&n bsp; - aPTT > 120: Hold 60 minutes, decrease rate 200 units/hr&n bsp; Check aPTT 6 hours after initiation , then Q6H after every change, aPTT Q12H once therapeuti c levels are reached.&n bsp; DO NOT ADJUST INITIAL BOLUS OR INITIAL INFUSION RATE.
furosemide 2022-07 No 40mg 40 mg, Univ ers (LASIX) 0-08 10-08 Slow IV ity of injection 18:19: 20:19 Push, [place] 40 mg 00 :00 ONCE, 1 Medical dose, On Branch 04/29/23 at 1330, Routine perflutren 2022-07 No [id number] 3mL 3 mL, IV Univers protein-A 0-08 10-08 [place], ity of microsphr 17:30: 17:30 ONCE, 1 [place] (OPTISON) 00 :00 dose, On Medica l injection 3 [place] Branch mL 04/29/23 at 1230, Routine citalopram 2022-07 No 20mg Take 1 Univ ers 20 mg 0-08 10-08 tablet by ity of tablet 12:37: 00:00 mouth in [place] 22 :00 the Medical morning. [place] ARIPiprazol 2022-07 No 10mg Take 1 Uni vers e 10 mg 0-08 10-08 tablet by ity of tablet 12:37: 00:00 mouth in [place] 22 :00 the Medical morning. Branch traZODone 2022-07 No 50mg Take 1 Unive rs 50 mg 0-08 10-08 tablet by ity of tablet 12:37: 00:00 mouth at [place] 22 :00 bedtime. Medical Branch citalopram 2022-07- No 20mg Take 1 Univ ers 20 mg 0-08 10-08 tablet by ity of tablet 12:37: 00:00 mouth in [place] 22 :00 the Medical morning. Branch ARIPiprazol 2022-07- No 10mg Take 1 Uni vers e 10 mg 0-08 10-08 tablet by ity of tablet 12:37: 00:00 mouth in [place] 22 :00 the Medical morning. Branch traZODone 2022-07- No 50mg Take 1 Unive rs 50 mg 0-08 10-08 tablet by ity of tablet 12:37: 00:00 mouth at [place] 22 :00 bedtime. Medical Branch METOPROLOL 0 Yes [id number] TAKE 1 U nivers SUCCINATE 2-22 TABLET BY ity o f XL 25 mg 24 00:00: MOUTH [place] hr tablet 00 EVERY DAY Medic al Branch OMEPRAZOLE 0 Yes [id number] TAKE 1 [facility] 40 mg 2-22 CAPSULE BY ity of capsule 00:00: MOUTH [place] 00 EVERY DAY Medical Branch LOSARTAN-HY 0 Yes [id number] TAKE 1 Univers DROCHLOROTH 2-22 TABLET BY ity of IAZIDE 00:00: MOUTH [place] 100-25 mg 00 EVERY DAY Medic al per tablet Branch METOPROLOL 0 Yes [id number] TAKE 1 U nivers SUCCINATE 2-22 TABLET BY ity o f XL 25 mg 24 00:00: MOUTH [place] hr tablet 00 EVERY DAY Medic al Branch OMEPRAZOLE 0 Yes [id number] TAKE 1 [facility] 40 mg 2-22 CAPSULE BY ity of capsule 00:00: MOUTH [place] 00 EVERY DAY Medical Branch LOSARTAN-HY 0 Yes [id number] TAKE 1 Univers DROCHLOROTH 2-22 TABLET BY ity of IAZIDE 00:00: MOUTH [place] 100-25 mg 00 EVERY DAY Medic al per tablet Branch METOPROLOL 0 Yes [id number] TAKE 1 U nivers SUCCINATE 2-22 TABLET BY ity o f XL 25 mg 24 00:00: MOUTH [place] hr tablet 00 EVERY DAY Medic al Branch OMEPRAZOLE 0 Yes [id number] TAKE 1 Univers 40 mg 2-22 CAPSULE BY ity of capsule 00:00: MOUTH [place] 00 EVERY DAY Medical Branch LOSARTAN-HY Yes [id number] TAKE 1 Univers DROCHLOROTH 2-22 TABLET BY ity of IAZIDE 00:00: MOUTH [place] 100-25 mg 00 EVERY DAY Medic al per tablet Branch METOPROLOL Yes [id number] TAKE 1 U nivers SUCCINATE 2-22 TABLET BY ity o f XL 25 mg 24 00:00: MOUTH [place] hr tablet 00 EVERY DAY Medic al Branch OMEPRAZOLE Yes [id number] TAKE 1 [facility] 40 mg 2-22 CAPSULE BY ity of capsule 00:00: MOUTH [place] 00 EVERY DAY Medical Branch LOSARTAN-HY Yes [id number] TAKE 1 Univers DROCHLOROTH 2-22 TABLET BY ity of IAZIDE 00:00: MOUTH [place] 100-25 mg 00 EVERY DAY Medic al per tablet Branch METOPROLOL Yes [id number] TAKE 1 U nivers SUCCINATE 2-22 TABLET BY ity o f XL 25 mg 24 00:00: MOUTH [place] hr tablet 00 EVERY DAY Medic al Branch OMEPRAZOLE Yes [id number] TAKE 1 [facility] 40 mg 2-22 CAPSULE BY ity of capsule 00:00: MOUTH [place] 00 EVERY DAY Medical Branch LOSARTAN-HY Yes [id number] TAKE 1 Univers DROCHLOROTH 2-22 TABLET BY ity of IAZIDE 00:00: MOUTH [place] 100-25 mg 00 EVERY DAY Medic al per tablet Branch METOPROLOL 2022- No [id number] TAKE 1 Univers SUCCINATE 2-22 10-08 TABLET BY ity of XL 25 mg 24 00:00: 00:00 MOUTH [place] hr tablet 00 :00 EVERY DAY Medic al Branch OMEPRAZOLE 2021-0 2022- No [id number] TAKE 1 [facility] 40 mg 2-22 10-08 CAPSULE BY ity of capsule 00:00: 00:00 MOUTH [place] 00 :00 EVERY DAY Medical Branch LOSARTAN-HY 2021-0 2022- No [id number] TAKE 1 Univers DROCHLOROTH 2-22 10-08 TABLET BY it y of IAZIDE 00:00: 00:00 MOUTH [place] 100-25 mg 00 :00 EVERY DAY Medic al per tablet Branch METOPROLOL 2021-0 2022- No [id number] TAKE 1 Univers SUCCINATE 2-22 10-08 TABLET BY ity of XL 25 mg 24 00:00: 00:00 MOUTH [place] hr tablet 00 :00 EVERY DAY Medic al Branch OMEPRAZOLE 2021-0 3- No [id number] TAKE 1 Univers 40 mg 2-22 10-08 CAPSULE BY ity of capsule 00:00: 00:00 MOUTH [place] 00 :00 EVERY DAY Medical Branch LOSARTAN-HY 2021-0 2022- No [id number] TAKE 1 Univers DROCHLOROTH 2-22 10-08 TABLET BY it y of IAZIDE 00:00: 00:00 MOUTH [place] 100-25 mg 00 :00 EVERY DAY Medic al per tablet Branch OMEPRAZOLE 2021-0 Yes [id number] TAKE 1 [facility] 40 mg 2-10 CAPSULE BY ity of capsule 00:00: MOUTH [place] 00 EVERY DAY Medical Branch OMEPRAZOLE 2021-0 2021- No [id number] TAKE 1 Univers 40 mg 2-10 02-22 CAPSULE BY ity of capsule 00:00: 00:00 MOUTH [place] 00 :00 EVERY DAY Medical Branch OMEPRAZOLE 2020- Yes [id number] TAKE 1 [facility] 40 mg 1-23 CAPSULE BY ity of capsule 00:00: MOUTH [place] 00 EVERY DAY Medical Branch OMEPRAZOLE 2020- Yes [id number] TAKE 1 Univers 40 mg 1-23 CAPSULE BY ity of capsule 00:00: MOUTH [place] 00 EVERY DAY Medical Branch OMEPRAZOLE 2020-1 2021- No [id number] TAKE 1 Univers 40 mg 1-23 02-10 CAPSULE BY ity of capsule 00:00: 00:00 MOUTH [place] 00 :00 EVERY DAY Medical Branch BUPROPION 2020-07 Yes [id number] 150mg TAKE 1 U nivers SR 150 mg 0-27 TABLET BY ity o f SR tablet 00:00: MOUTH 2 [place] (TWO) Medical TIMES Branch DAILY. BUPROPION 2020-07 Yes [id number] 150mg TAKE 1 U nivers SR 150 mg 0-27 TABLET BY ity o f SR tablet 00:00: MOUTH 2 [place] (TWO) Medical TIMES Branch DAILY. BUPROPION 2020-07 Yes [id number] 150mg TAKE 1 U nivers SR 150 mg 0-27 TABLET BY ity o f SR tablet 00:00: MOUTH 2 [place] (TWO) Medical TIMES Branch DAILY. BUPROPION 2020-07 Yes [id number] 150mg TAKE 1 U nivers SR 150 mg 0-27 TABLET BY ity o f SR tablet 00:00: MOUTH [place] (TWO) Medical TIMES Branch DAILY. BUPROPION 2020-07 Yes [id number] 150mg TAKE 1 U nivers SR 150 mg 0-27 TABLET BY ity o f SR tablet 00:00: MOUTH 2 [place] (TWO) Medical TIMES Branch DAILY. BUPROPION 2020-07 Yes [id number] 150mg TAKE 1 U nivers SR 150 mg 0-27 TABLET BY ity o f SR tablet 00:00: MOUTH 2 [place] (TWO) Medical TIMES Branch DAILY. BUPROPION 2020-07 Yes [id number] 150mg TAKE 1 U nivers SR 150 mg 0-27 TABLET BY ity o f SR tablet 00:00: MOUTH [place] (TWO) Medical TIMES Branch DAILY. BUPROPION 2020-07 Yes [id number] 150mg TAKE 1 U nivers SR 150 mg 0-27 TABLET BY ity o f SR tablet 00:00: MOUTH [place] (TWO) Medical TIMES Branch DAILY. BUPROPION 2020-07 Yes [id number] 150mg TAKE 1 U nivers SR 150 mg 0-27 TABLET BY ity o f SR tablet 00:00: [facility] [place] (TWO) Medical TIMES Branch DAILY. BUPROPION 2020-07- No [id number] 150mg TAKE 1 Univers SR 150 mg 0-27 10-08 TABLET BY ity of SR tablet 00:00: 00:00 MOUTH 2 [place] 00 :[place] (TWO) Medical TIMES Branch DAILY. BUPROPION 2020-07- No [id number] 150mg TAKE 1 Univers SR 150 mg 0-27 10-08 TABLET BY ity of SR tablet 00:00: 00:00 MOUTH 2 [place] 00 :[place] (TWO) Medical TIMES Branch DAILY. OMEPRAZOLE Yes [id number] TAKE 1 [facility] 40 mg 8-31 CAPSULE BY ity of capsule 00:00: MOUTH [place] 00 EVERY DAY Medical Branch OMEPRAZOLE Yes [id number] TAKE 1 [facility] 40 mg 8-31 CAPSULE BY ity of capsule 00:00: MOUTH [place] 00 EVERY DAY Medical Branch OMEPRAZOLE Yes [id number] TAKE 1 [facility] 40 mg 8-31 CAPSULE BY ity of capsule 00:00: MOUTH [place] 00 EVERY DAY Medical Branch OMEPRAZOLE 2020- No [id number] TAKE 1 Univers 40 mg 8-31 11-23 CAPSULE BY ity of capsule 00:00: 00:00 MOUTH [place] 00 : EVERY DAY Medical Branch OMEPRAZOLE 2020-0 Yes [id number] TAKE 1 [facility] 40 mg 5-28 CAPSULE BY ity of capsule 00:00: MOUTH [place] EVERY DAY Medical Branch OMEPRAZOLE 2020-0 1- No [id number] TAKE 1 Univers 40 mg 5-28 08-31 CAPSULE BY ity of capsule 00:00: 00:00 MOUTH [place] 00 : EVERY DAY Medical Branch OMEPRAZOLE 2020-0 2020- No [id number] TAKE 1 Univers 40 mg 5-28 08-31 CAPSULE BY ity of capsule 00:00: 00:00 MOUTH [place] 00 :00 EVERY DAY Medical Branch citalopram [...] by mouth ity of tablet 13:58: at [place] [address] bedtime. Medical Branch citalopram 0 Yes 20mg [...] by mouth ity of tablet 13:58: at [place] [address] bedtime. Medical Branch citalopram 0 Yes 20mg [...] by mouth ity of tablet 13:58: at [place] 00 bedtime. Medical Branch citalopram 2020-0 Yes [...] by mouth ity of tablet 13:58: at [place] 00 bedtime. Medical Branch citalopram 2020-0 Yes [...] by mouth ity of tablet 13:58: at [place] 00 bedtime. Medical Branch citalopram 2020-0 Yes [...] by mouth ity of tablet 13:58: at [place] 00 bedtime. Medical Branch citalopram 2020-0 Yes [...] by mouth ity of tablet 13:58: at [place] 00 bedtime. Medical Branch citalopram 2020-0 Yes 20mg Take 20 mg U nivers 20 mg 5-10 by mouth ity of tablet 13:58: daily. [facility] Branch ARIPiprazol Yes 10mg Take 10 mg Univers e 10 mg 5-10 by mouth ity of tablet 13:58: daily. [facility] Branch traZODone Yes 50mg Take 50 mg [place] 50 mg 5-10 by mouth ity of tablet 13:58: at [place] [address] bedtime. Medical Branch citalopram Yes 20mg Take 20 mg U nivers 20 mg 5-10 by mouth ity of tablet 13:58: daily. [facility] ARIPiprazol Yes 10mg Take 10 mg Univers e 10 mg 5-10 by mouth ity of tablet 13:58: daily. [facility] traZODone Yes 50mg Take 50 mg [place] 50 mg 5-10 by mouth ity of tablet 13:58: at [place] [address] bedtime. Medical Branch citalopram Yes 20mg Take 20 mg U nivers 20 mg 5-10 by mouth ity of tablet 13:58: daily. [facility] ARIPiprazol Yes 10mg Take 10 mg Univers e 10 mg 5-10 by mouth ity of tablet 13:58: daily. [facility] traZODone 0 Yes 50mg Take 50 mg [place] 50 mg 5-10 by mouth ity of tablet 13:58: at [place] [address] bedtime. Medical Branch citalopram Yes 20mg Take 20 mg U nivers 20 mg 5-10 by mouth ity of tablet 13:58: daily. [facility] ARIPiprazol Yes 10mg Take 10 mg Univers e 10 mg 5-10 by mouth ity of tablet 13:58: daily. [address] [place] [address] traZODone 0 Yes 50mg Take 50 mg [place] 50 mg 5-10 by mouth ity of tablet 13:58: at [place] [address] bedtime. Medical Branch triamcinolo 2020- No PRN, Unive rs ne 5-10 05-10 Starting ity of acetonide 12:30: 15:58 Mon [place] (KENALOG) 00 :03 11/29/20 at Medi ranjit injection 0730, Branch Until 11/29/20 at 1058, Routine, Intra-op lidocaine 2020- No PRN, Univers 1% 11-29 05-10 Starting ity of (XYLOCAINE) 12:30: 15:58 Mon [place] 10 mg/mL (1 00 :03 11/29/20 at Ak dical %) 0730, Branch injection Until 11/29/20 at 1058, Routine, Intra-op iohexoL 2020- No PRN, Univers (OMNIPAQUE 5 05-10 Starting ity of 300-50 mL)) 12:30: 15:58 Mon [place] injection 00 :03 11/29/20 at Medi ranjit 0730, Branch Until 11/29/20 at 1058, Routine, Intra-op bupivacaine 2020- No PRN, Unive rs (preserv 5- 05-10 Starting ity of free) 12:30: 15:58 Mon [place] (SENSORCAIN 00 :03 11/29/20 at Ak dical E [facility]) 0.25 0730, Branch % [...] by mouth ity of tablet 08:58: daily. [address] ARIPiprazol Yes 10mg Take 10 mg Univers e 10 mg 5-10 by mouth ity of tablet 08:58: daily. [place] 00 Medical Branch traZODone 1-0 Yes 50mg Take 50 mg [place] 50 mg 5-10 by mouth ity of tablet 08:58: at [place] 00 bedtime. Medical Branch citalopram 1-0 Yes 20mg Take 20 mg U nivers 20 mg 5-10 by mouth ity of tablet 08:58: daily. Medical Branch ARIPiprazol 2020-0 Yes 10mg Take 10 mg Univers e 10 mg 5-10 by mouth ity of tablet 08:58: daily. Medical Branch traZODone 2020-0 Yes 50mg Take 50 mg [place] 50 mg 5-10 by mouth ity of tablet 08:58: at [place] 00 bedtime. Medical Branch citalopram [...] by mouth ity of tablet 08:58: at [place] 00 bedtime. Medical Branch citalopram 2020-0 Yes [...] by mouth ity of tablet 08:58: at [place] 00 bedtime. Medical Branch citalopram [...] by mouth ity of tablet 08:58: at [place] 00 bedtime. Medical Branch citalopram 1-0 Yes 20mg Take 20 mg U nivers 20 mg 5-10 by mouth ity of tablet 08:58: daily. Medical Branch ARIPiprazol 2020-0 Yes 10mg Take 10 mg Univers e 10 mg 5-10 by mouth ity of tablet 08:58: daily. Medical Branch traZODone 2020-0 Yes 50mg Take 50 mg [place] 50 mg 5-10 by mouth ity of tablet 08:58: at [place] 00 bedtime. Medical Branch citalopram 1-0 Yes 20mg Take 20 mg U nivers 20 mg 5-10 by mouth ity of tablet 08:58: daily. Medical Branch ARIPiprazol 1-0 Yes 10mg Take 10 mg Univers e 10 mg 5-10 by mouth ity of tablet 08:58: daily. Medical Branch traZODone 2020-0 Yes 50mg Take 50 mg [place] 50 mg 5-10 by mouth ity of tablet 08:58: at [place] 00 bedtime. Medical Branch citalopram 1-0 Yes 20mg Take 20 mg U nivers 20 mg 5-10 by mouth ity of tablet 08:58: daily. Medical Branch ARIPiprazol 1-0 Yes 10mg Take 10 mg Univers e 10 mg 5-10 by mouth ity of tablet 08:58: daily. Medical Branch traZODone 1-0 Yes 50mg Take 50 mg [place] 50 mg 5-10 by mouth ity of tablet 08:58: at [place] 00 bedtime. Medical Branch citalopram 1-0 Yes 20mg Take 20 mg U nivers 20 mg 5-10 by mouth ity of tablet 08:58: daily. Medical Branch ARIPiprazol 2020-0 Yes 10mg Take 10 mg Univers e 10 mg 5-10 by mouth ity of tablet 08:58: daily. Medical Branch traZODone 2021-0 Yes 50mg Take 50 mg [place] 50 mg 5-10 by mouth ity of tablet 08:58: at [place] 00 bedtime. Medical Branch citalopram 1-0 Yes 20mg Take 20 mg U nivers 20 mg 5-07 by mouth ity of tablet 13:45: daily. [address] ARIPiprazol 0 Yes 10mg Take 10 mg Univers e 10 mg 5-07 by mouth ity of tablet 13:45: daily. [address] traZODone 0 Yes 50mg Take 50 mg [place] 50 mg 5-07 by mouth ity of tablet 13:45: at [place] [address] bedtime. [facility] Branch citalopram 0 Yes 20mg Take 20 mg U nivers 20 mg 5-07 by mouth ity of tablet 13:45: daily. [address] ARIPiprazol 0 Yes 10mg Take 10 mg Univers e 10 mg 5-07 by mouth ity of tablet 13:45: daily. [address] traZODone 0 Yes 50mg Take 50 mg [place] 50 mg 5-07 by mouth ity of tablet 13:45: at [place] [address] bedtime. [facility] Branch citalopram Yes 20mg Take 20 mg U nivers 20 mg 5-07 by mouth ity of tablet 13:45: daily. [address] ARIPiprazol 0 Yes 10mg Take 10 mg Univers e 10 mg 5-07 by mouth ity of tablet 13:45: daily. [address] traZODone 0 Yes 50mg Take 50 mg [place] 50 mg 5-07 by mouth ity of tablet 13:45: at [place] [address] bedtime. Medical Branch HYDROcodone 2020- No .5{tbl} [...] hr tablet 23 :00 Medical Branch metoprolol 2020-0 2021- No 25mg Take 25 mg Univers succinate 4-28 04-28 by mouth ity o f XL 25 mg 24 20:35: 00:00 daily. [place] hr tablet 23 :00 Medical Branch losartan-hy 0 Yes [id number] 1{tbl} Take 1 Univers drochloroth 4-28 tablet by ity of iazide 00:00: mouth [place] 100-25 mg 00 daily. Medical per tablet Branch amLODIPine 0 Yes [id number] 10mg Take 1 U nivers 10 mg 4-28 tablet by ity of tablet 00:00: mouth [place] 00 daily. Medical Branch metoprolol Yes [id number] 25mg Take 1 U nivers succinate 4-28 tablet by ity o f XL 25 mg 24 00:00: mouth [place] hr tablet 00 daily. Medical Branch mupirocin 2 Yes [id number] Apply to Univers % ointment 4-28 area(s) 3 ity of 00:00: (three) [place] 00 times Medical daily. Branch Apply 4g to affected area hand niacin 500 Yes [id number] 500mg Take 1 Univers mg tablet 4-28 tablet by ity o f 00:00: mouth at [place] 00 bedtime. Medical Branch losartan-hy 0 Yes [id number] 1{tbl} Take 1 [facility] drochloroth 4-28 tablet by ity of iazide 00:00: mouth [place] 100-25 mg 00 daily. Medical per tablet Branch amLODIPine 0 Yes [id number] 10mg Take 1 U nivers 10 mg 4-28 tablet by ity of tablet 00:00: mouth [place] 00 daily. Medical Branch metoprolol 0 Yes [id number] 25mg Take 1 U nivers succinate 4-28 tablet by ity o f XL 25 mg 24 00:00: mouth [place] hr tablet 00 daily. Medical Branch mupirocin 2 Yes [id number] Apply to Univers % ointment 4-28 area(s) 3 ity of 00:00: (three) [place] 00 times Medical daily. Branch Apply 4g to affected area hand niacin 500 Yes [id number] 500mg Take 1 Univers mg tablet 4-28 tablet by ity o f 00:00: mouth at [place] 00 bedtime. Medical Branch losartan-hy 0 Yes [id number] 1{tbl} Take 1 Univers drochloroth 4-28 tablet by ity of iazide 00:00: mouth [place] 100-25 mg 00 daily. Medical per tablet Branch amLODIPine 0 Yes [id number] 10mg Take 1 U nivers 10 mg 4-28 tablet by ity of tablet 00:00: mouth [place] 00 daily. Medical Branch metoprolol Yes [id number] 25mg Take 1 U nivers succinate 4-28 tablet by ity o f XL 25 mg 24 00:00: mouth [place] hr tablet 00 daily. Medical Branch mupirocin 2 Yes [id number] Apply to Univers % ointment 4-28 area(s) 3 ity of 00:00: (three) [place] 00 times Medical daily. Branch Apply 4g to affected area hand niacin 500 Yes [id number] 500mg Take 1 Univers mg tablet 4-28 tablet by ity o f 00:00: mouth at [place] 00 bedtime. Medical Branch amLODIPine Yes [id number] 10mg Take 1 U nivers 10 mg 4-28 tablet by ity of tablet 00:00: mouth [place] 00 daily. Medical Branch mupirocin 2 Yes [id number] Apply to Univers % ointment 4-28 area(s) 3 ity of 00:00: (three) [place] 00 times Medical daily. Branch Apply 4g to affected area hand niacin 500 2020-0 Yes [id number] 500mg Take 1 Univers mg tablet 4-28 tablet by ity o f 00:00: mouth at [place] 00 bedtime. Medical Branch amLODIPine Yes [id number] 10mg Take 1 U nivers 10 mg 4-28 tablet by ity of tablet 00:00: mouth [place] 00 daily. Medical Branch mupirocin 2 Yes [id number] Apply to Univers % ointment 4-28 area(s) 3 ity of 00:00: (three) [place] 00 times Medical daily. Branch Apply 4g to affected area hand niacin 500 2020- Yes [id number] 500mg Take 1 Univers mg tablet 4-28 tablet by ity o f 00:00: mouth at [place] 00 bedtime. Medical Branch amLODIPine 0 Yes [id number] 10mg Take 1 U nivers 10 mg 4-28 tablet by ity of tablet 00:00: mouth [place] 00 daily. Medical Branch mupirocin 2 Yes [id number] Apply to Univers % ointment 4-28 area(s) 3 ity of 00:00: (three) [place] 00 times Medical daily. Branch Apply 4g to affected area hand niacin 500 0 Yes [id number] 500mg Take 1 Univers mg tablet 4-28 tablet by ity o f 00:00: mouth at [place] 00 bedtime. Medical Branch amLODIPine Yes [id number] 10mg Take 1 U nivers 10 mg 4-28 tablet by ity of tablet 00:00: mouth [place] 00 daily. Medical Branch mupirocin 2 Yes [id number] Apply to Univers % ointment 4-28 area(s) 3 ity of 00:00: (three) [place] 00 times Medical daily. Branch Apply 4g to affected area hand niacin 500 Yes [id number] 500mg Take 1 Univers mg tablet 4-28 tablet by ity o f 00:00: mouth at [place] 00 bedtime. Medical Branch amLODIPine Yes [id number] 10mg Take 1 U nivers 10 mg 4-28 tablet by ity of tablet 00:00: mouth [place] 00 daily. Medical Branch mupirocin 2 Yes [id number] Apply to Univers % ointment 4-28 area(s) 3 ity of 00:00: (three) [place] 00 times Medical daily. Branch Apply 4g to affected area hand niacin 500 2020-0 Yes [id number] 500mg Take 1 Univers mg tablet 4-28 tablet by ity o f 00:00: mouth at [place] 00 bedtime. Medical Branch losartan-hy 2020-0 Yes [id number] 1{tbl} Take 1 Univers drochloroth 4-28 tablet by ity of iazide 00:00: mouth [place] 100-25 mg 00 daily. Medical per tablet Branch amLODIPine 2020-0 Yes [id number] 10mg Take 1 U nivers 10 mg 4-28 tablet by ity of tablet 00:00: mouth [place] 00 daily. Medical Branch metoprolol 2020-0 Yes [id number] 25mg Take 1 U nivers succinate 4-28 tablet by ity o f XL 25 mg 24 00:00: mouth [place] hr tablet 00 daily. Medical Branch mupirocin 2 Yes [id number] Apply to Univers % ointment 4-28 area(s) 3 ity of 00:00: (three) [place] 00 times Medical daily. Branch Apply 4g to affected area hand buPROPion Yes [id number] 150mg Take 1 U nivers SR 4-28 tablet by ity of (WELLBUTRIN 00:00: mouth 2 [place] as SR) 150 mg 00 (two) Medical SR tablet times Branch daily. niacin 500 Yes [id number] 500mg Take 1 Univers mg tablet 4-28 tablet by ity o f 00:00: mouth at [place] 00 bedtime. Medical Branch losartan-hy Yes [id number] 1{tbl} Take 1 [facility] drochloroth 4-28 tablet by ity of iazide 00:00: mouth [place] 100-25 mg 00 daily. Medical per tablet Branch amLODIPine Yes [id number] 10mg Take 1 U nivers 10 mg 4-28 tablet by ity of tablet 00:00: mouth [place] 00 daily. Medical Branch metoprolol Yes [id number] 25mg Take 1 U nivers succinate 4-28 tablet by ity o f XL 25 mg 24 00:00: mouth [place] hr tablet 00 daily. Medical Branch mupirocin 2 Yes [id number] Apply to Univers % ointment 4-28 area(s) 3 ity of 00:00: (three) [place] 00 times Medical daily. Branch Apply 4g to affected area hand buPROPion Yes [id number] 150mg Take 1 U nivers SR 4-28 tablet by ity of (WELLBUTRIN 00:00: mouth 2 [place] as SR) 150 mg 00 (two) Medical SR tablet times Branch daily. niacin 500 Yes [id number] 500mg Take 1 Univers mg tablet 4-28 tablet by ity o f 00:00: mouth at [place] 00 bedtime. Medical Branch losartan-hy Yes [id number] 1{tbl} Take 1 [facility] drochloroth 4-28 tablet by ity of iazide 00:00: mouth [place] 100-25 mg 00 daily. Medical per tablet Branch amLODIPine Yes [id number] 10mg Take 1 U nivers 10 mg 4-28 tablet by ity of tablet 00:00: mouth [place] 00 daily. Medical Branch metoprolol Yes [id number] 25mg Take 1 U nivers succinate 4-28 tablet by ity o f XL 25 mg 24 00:00: mouth [place] hr tablet 00 daily. Medical Branch mupirocin 2 Yes [id number] Apply to Univers % ointment 4-28 area(s) 3 ity of 00:00: (three) [place] 00 times Medical daily. Branch Apply 4g to affected area hand buPROPion Yes [id number] 150mg Take 1 U nivers SR 4-28 tablet by ity of (WELLBUTRIN 00:00: mouth 2 [place] as SR) 150 mg 00 (two) Medical SR tablet times Branch daily. niacin 500 Yes [id number] 500mg Take 1 Univers mg tablet 4-28 tablet by ity o f 00:00: mouth at [place] 00 bedtime. Medical Branch losartan-hy Yes [id number] 1{tbl} Take 1 [facility] drochloroth 4-28 tablet by it[facility] of iazide 00:00: mouth [place] 100-25 mg 00 daily. Medical per tablet Branch amLODIPine Yes [id number] 10mg Take 1 [facility] 10 mg 4-28 tablet by it[facility] of tablet 00:00: mouth [place] 00 daily. Medical Branch metoprolol Yes [id number] 25mg Take 1 [facility] succinate 4-28 tablet by ity o f XL 25 mg 24 00:00: mouth [place] hr tablet 00 daily. Medical Branch mupirocin 2 Yes [id number] Apply to [facility] % ointment 4-28 area(s) 3 ity of 00:00: (three) [place] 00 times Medical daily. Branch Apply 4g to affected area hand buPROPion Yes [id number] 150mg Take 1 [facility] n[facility] SR 4-28 tablet by ity of (WELLBUTRIN 00:00: mouth 2 [place] SR) 150 mg 00 (two) Medical SR tablet times Branch daily. niacin 500 Yes [id number] 500mg Take 1 [facility] mg tablet 4-28 tablet by ity o f 00:00: mouth at [place] 00 bedtime. Medical Branch losartan-hy Yes [id number] 1{tbl} Take 1 [facility] drochloroth 4-28 tablet by ity of iazide 00:00: mouth [place] 100-25 mg 00 daily. Medical per tablet Branch amLODIPine Yes [id number] 10mg Take 1 [facility] 10 mg 4-28 tablet by ity of tablet 00:00: mouth [place] 00 daily. Medical Branch metoprolol Yes [id number] 25mg Take 1 [facility] succinate 4-28 tablet by ity o f XL 25 mg 24 00:00: mouth [place] hr tablet 00 daily. Medical Branch mupirocin 2 Yes [id number] Apply to [facility] % ointment 4-28 area(s) 3 it[facility] of 00:00: (three) [place] 00 times Medical daily. Branch Apply 4g to affected area hand buPROPion Yes [id number] 150mg Take 1 [facility] SR 4-28 tablet by ity of (WELLBUTRIN 00:00: mouth 2 [place] SR) 150 mg 00 (two) Medical SR tablet times Branch daily. niacin 500 Yes [id number] 500mg Take 1 [facility] mg tablet 4-28 tablet by ity o f 00:00: mouth at [place] 00 bedtime. Medical Branch losartan-hy Yes [id number] 1{tbl} Take 1 [facility] drochloroth 4-28 tablet by ity of iazide 00:00: mouth [place] 100-25 mg 00 daily. Medical per tablet Branch losartan-hy Yes [id number] 1{tbl} Take 1 [facility] drochloroth 4-28 tablet by ity of iazide 00:00: mouth [place] 100-25 mg 00 daily. Medical per tablet Branch amLODIPine Yes [id number] 10mg Take 1 [facility] 10 mg 4-28 tablet by [facility] of tablet 00:00: mouth [place] 00 daily. Medical Branch metoprolol Yes [id number] 25mg Take 1 [facility] succinate 4-28 tablet by ity o f XL 25 mg 24 00:00: mouth [place] hr tablet 00 daily. Medical Branch mupirocin 2 Yes [id number] Apply to [facility] % ointment 4-28 area(s) 3 it[facility] of 00:00: (three) [place] 00 times Medical daily. Branch Apply 4g to affected area hand buPROPion Yes [id number] 150mg Take 1 [facility] SR 4-28 tablet by ity of (WELLBUTRIN 00:00: mouth 2 [place] SR) 150 mg 00 (two) Medical SR tablet times Branch daily. niacin 500 Yes [id number] 500mg Take 1 [facility] mg tablet 4-28 tablet by ity o f 00:00: mouth at [place] 00 bedtime. Medical Branch amLODIPine Yes [id number] 10mg Take 1 [facility] 10 mg 4-28 tablet by [facility] of tablet 00:00: mouth [place] 00 daily. Medical Branch losartan-hy Yes [id number] 1{tbl} Take 1 [facility] drochloroth 4-28 tablet by [facility]y of iazide 00:00: mouth [place] 100-25 mg 00 daily. Medical per tablet Branch amLODIPine Yes [id number] 10mg Take 1 [facility] 10 mg 4-28 tablet by it[facility] of tablet 00:00: mouth [place] 00 daily. Medical Branch metoprolol Yes [id number] 25mg Take 1 [facility] succinate 4-28 tablet by ity o f XL 25 mg 24 00:00: mouth [place] hr tablet 00 daily. Medical Branch mupirocin 2 Yes [id number] Apply to [facility] % ointment 4-28 area(s) 3 ity of 00:00: (three) [place] 00 times Medical daily. Branch Apply 4g to affected area hand metoprolol Yes [id number] 25mg Take 1 [facility] succinate 4-28 tablet by ity o f XL 25 mg 24 00:00: mouth [place] hr tablet 00 daily. Medical Branch buPROPion Yes [id number] 150mg Take 1 [facility] SR 4-28 tablet by ity of (WELLBUTRIN 00:00: mouth 2 [place] SR) 150 mg 00 (two) Medical SR tablet times Branch daily. niacin 500 Yes [id number] 500mg Take 1 [facility] mg tablet 4-28 tablet by ity o f 00:00: mouth at [place] 00 bedtime. Medical Branch mupirocin 2 Yes [id number] Apply to [facility] % ointment 4-28 area(s) 3 ity of 00:00: (three) [place] 00 times Medical daily. Branch Apply 4g to affected area hand buPROPion Yes [id number] 150mg Take 1 [facility] SR 4-28 tablet by ity of (WELLBUTRIN 00:00: mouth 2 [place] SR) 150 mg 00 (two) Medical SR tablet times Branch daily. losartan-hy Yes [id number] 1{tbl} Take 1 [facility] drochloroth 4-28 tablet by ity of iazide 00:00: mouth [place] 100-25 mg 00 daily. Medical per tablet Branch amLODIPine Yes [id number] 10mg Take 1 [facility] 10 mg 4-28 tablet by ity of tablet 00:00: mouth [place] 00 daily. Medical Branch metoprolol Yes [id number] 25mg Take 1 [facility] succinate 4-28 tablet by ity o f XL 25 mg 24 00:00: mouth [place] hr tablet 00 daily. Medical Branch mupirocin 2 Yes [id number] Apply to [facility] % ointment 4-28 area(s) 3 ity of 00:00: (three) [place] 00 times Medical daily. Branch Apply 4g to affected area hand buPROPion Yes [id number] 150mg Take 1 [facility] SR 4-28 tablet by ity of (WELLBUTRIN 00:00: mouth 2 [place] SR) 150 mg 00 (two) Medical SR tablet times Branch daily. niacin 500 Yes [id number] 500mg Take 1 [facility] mg tablet 4-28 tablet by ity o f 00:00: mouth at [place] 00 bedtime. Medical Branch niacin 500 Yes [id number] 500mg Take 1 [facility] mg tablet 4-28 tablet by ity o f 00:00: mouth at [place] 00 bedtime. Medical Branch losartan-hy Yes [id number] 1{tbl} Take 1 [facility] drochloroth 4-28 tablet by ity of iazide 00:00: mouth [place] 100-25 mg 00 daily. Medical per tablet Branch amLODIPine Yes [id number] 10mg Take 1 [facility] 10 mg 4-28 tablet by it[facility] of tablet 00:00: mouth [place] 00 daily. Medical Branch metoprolol Yes [id number] 25mg Take 1 [facility] succinate 4-28 tablet by ity o f XL 25 mg 24 00:00: mouth [place] hr tablet 00 daily. Medical Branch mupirocin 2 Yes [id number] Apply to [facility] % ointment 4-28 area(s) 3 it[facility] of 00:00: (three) [place] 00 times Medical daily. Branch Apply 4g to affected area hand buPROPion Yes [id number] 150mg Take 1 [facility] SR 4-28 tablet by ity of (WELLBUTRIN 00:00: mouth 2 [place] SR) 150 mg 00 (two) Medical SR tablet times Branch daily. niacin 500 Yes [id number] 500mg Take 1 [facility] mg tablet 4-28 tablet by ity o f 00:00: mouth at [place] 00 bedtime. Medical Branch losartan-hy Yes [id number] 1{tbl} Take 1 [facility] drochloroth 4-28 tablet by ity of iazide 00:00: mouth [place] 100-25 mg 00 daily. Medical per tablet Branch amLODIPine Yes [id number] 10mg Take 1 [facility] 10 mg 4-28 tablet by ity of tablet 00:00: mouth [place] 00 daily. Medical Branch metoprolol Yes [id number] 25mg Take 1 [facility] succinate 4-28 tablet by ity o f XL 25 mg 24 00:00: mouth [place] hr tablet 00 daily. Medical Branch mupirocin 2 Yes [id number] Apply to [facility] % ointment 4-28 area(s) 3 ity of 00:00: (three) [place] 00 times Medical daily. Branch Apply 4g to affected area hand buPROPion Yes [id number] 150mg Take 1 [facility] SR 4-28 tablet by ity of (WELLBUTRIN 00:00: mouth 2 [place] SR) 150 mg 00 (two) Medical SR tablet times Branch daily. niacin 500 Yes [id number] 500mg Take 1 [facility] mg tablet 4-28 tablet by ity o f 00:00: mouth at [place] 00 bedtime. Medical Branch losartan-hy 2020-0 Yes [id number] 1{tbl} Take 1 [facility] drochloroth 4-28 tablet by ity of iazide 00:00: mouth [place] 100-25 mg 00 daily. Medical per tablet Branch amLODIPine Yes [id number] 10mg Take 1 [facility] 10 mg 4-28 tablet by ity of tablet 00:00: mouth [place] 00 daily. Medical Branch metoprolol Yes [id number] 25mg Take 1 [facility] succinate 4-28 tablet by ity o f XL 25 mg 24 00:00: mouth [place] hr tablet 00 daily. Medical Branch mupirocin 2 Yes [id number] Apply to [facility] % ointment 4-28 area(s) 3 ity of 00:00: (three) [place] 00 times Medical daily. Branch Apply 4g to affected area hand buPROPion Yes [id number] 150mg Take 1 [facility] SR 4-28 tablet by ity of (WELLBUTRIN 00:00: mouth 2 [place] SR) 150 mg 00 (two) Medical SR tablet times Branch daily. niacin 500 Yes [id number] 500mg Take 1 [facility] mg tablet 4-28 tablet by ity o f 00:00: mouth at [place] 00 bedtime. Medical Branch losartan-hy Yes [id number] 1{tbl} Take 1 [facility] drochloroth 4-28 tablet by ity of iazide 00:00: mouth [place] 100-25 mg 00 daily. Medical per tablet Branch amLODIPine Yes [id number] 10mg Take 1 [facility] 10 mg 4-28 tablet by ity of tablet 00:00: mouth [place] 00 daily. Medical Branch metoprolol Yes [id number] 25mg Take 1 [facility] succinate 4-28 tablet by ity o f XL 25 mg 24 00:00: mouth [place] hr tablet 00 daily. Medical Branch mupirocin 2 Yes [id number] Apply to [facility] % ointment 4-28 area(s) 3 ity of 00:00: (three) [place] 00 times Medical daily. Branch Apply 4g to affected area hand buPROPion Yes [id number] 150mg Take 1 [facility] SR 4-28 tablet by ity of (WELLBUTRIN 00:00: mouth 2 [place] SR) 150 mg 00 (two) Medical SR tablet times Branch daily. niacin 500 Yes [id number] 500mg Take 1 [facility] mg tablet 4-28 tablet by ity o f 00:00: mouth at [place] 00 bedtime. Medical Branch losartan-hy Yes [id number] 1{tbl} Take 1 [facility] drochloroth 4-28 tablet by ity of iazide 00:00: mouth [place] 100-25 mg 00 daily. Medical per tablet Branch amLODIPine Yes [id number] 10mg Take 1 [facility] 10 mg 4-28 tablet by ity of tablet 00:00: mouth [place] 00 daily. Medical Branch metoprolol Yes [id number] 25mg Take 1 [facility] succinate 4-28 tablet by ity o f XL 25 mg 24 00:00: mouth [place] hr tablet 00 daily. Medical Branch mupirocin 2 Yes [id number] Apply to [facility] % ointment 4-28 area(s) 3 ity of 00:00: (three) [place] 00 times Medical daily. Branch Apply 4g to affected area hand buPROPion Yes [id number] 150mg Take 1 [facility] SR 4-28 tablet by ity of (WELLBUTRIN 00:00: mouth 2 [place] SR) 150 mg 00 (two) Medical SR tablet times Branch daily. niacin 500 Yes [id number] 500mg Take 1 [facility] mg tablet 4-28 tablet by ity o f 00:00: mouth at [place] 00 bedtime. Medical Branch losartan-hy Yes [id number] 1{tbl} Take 1 [facility] drochloroth 4-28 tablet by ity of iazide 00:00: mouth [place] 100-25 mg 00 daily. Medical per tablet Branch amLODIPine Yes [id number] 10mg Take 1 [facility] 10 mg 4-28 tablet by ity of tablet 00:00: mouth [place] 00 daily. Medical Branch metoprolol Yes [id number] 25mg Take 1 [facility] n[facility] succinate 4-28 tablet by ity o f XL 25 mg 24 00:00: mouth [place] hr tablet 00 daily. Medical Branch mupirocin 2 Yes [id number] Apply to [facility] % ointment 4-28 area(s) 3 ity of 00:00: (three) [place] 00 times Medical daily. Branch Apply 4g to affected area hand buPROPion Yes [id number] 150mg Take 1 [facility] SR 4-28 tablet by ity of (WELLBUTRIN 00:00: mouth 2 [place] SR) 150 mg 00 (two) Medical SR tablet times Branch daily. niacin 500 Yes [id number] 500mg Take 1 [facility] mg tablet 4-28 tablet by ity o f 00:00: mouth at [place] 00 bedtime. Medical Branch losartan-hy 0 Yes [id number] 1{tbl} Take 1 [facility] drochloroth 4-28 tablet by ity of iazide 00:00: mouth [place] 100-25 mg 00 daily. Medical per tablet Branch amLODIPine Yes [id number] 10mg Take 1 [facility] 10 mg 4-28 tablet by ity of tablet 00:00: mouth [place] 00 daily. Medical Branch metoprolol Yes [id number] 25mg Take 1 [facility] n[facility] succinate 4-28 tablet by ity o f XL 25 mg 24 00:00: mouth [place] hr tablet 00 daily. Medical Branch mupirocin 2 Yes [id number] Apply to [facility] % ointment 4-28 area(s) 3 ity of 00:00: (three) [place] 00 times Medical daily. Branch Apply 4g to affected area hand buPROPion Yes [id number] 150mg Take 1 [facility] n[facility] SR 4-28 tablet by ity of (WELLBUTRIN 00:00: mouth 2 [place] SR) 150 mg 00 (two) Medical SR tablet times Branch daily. niacin 500 Yes [id number] 500mg Take 1 [facility] mg tablet 4-28 tablet by ity o f 00:00: mouth at [place] 00 bedtime. Medical Branch losartan-hy 2020-0 Yes [id number] 1{tbl} Take 1 [facility] drochloroth 4-28 tablet by ity of iazide 00:00: mouth [place] 100-25 mg 00 daily. Medical per tablet Branch amLODIPine 2020- Yes [id number] 10mg Take 1 [facility] 10 mg 4-28 tablet by ity of tablet 00:00: mouth [place] 00 daily. Medical Branch metoprolol Yes [id number] 25mg Take 1 [facility] n[facility] succinate 4-28 tablet by ity o f XL 25 mg 24 00:00: mouth [place] hr tablet 00 daily. Medical Branch mupirocin 2 Yes [id number] Apply to [facility] % ointment 4-28 area(s) 3 ity of 00:00: (three) [place] 00 times Medical daily. Branch Apply 4g to affected area hand buPROPion Yes [id number] 150mg Take 1 [facility] SR 4-28 tablet by ity of (WELLBUTRIN 00:00: mouth 2 [place] SR) 150 mg 00 (two) Medical SR tablet times Branch daily. niacin 500 Yes [id number] 500mg Take 1 [facility] mg tablet 4-28 tablet by ity o f 00:00: mouth at [place] 00 bedtime. Medical Branch losartan-hy Yes [id number] 1{tbl} Take 1 [facility] drochloroth 4-28 tablet by ity of iazide 00:00: mouth [place] 100-25 mg 00 daily. Medical per tablet Branch amLODIPine Yes [id number] 10mg Take 1 [facility] 10 mg 4-28 tablet by ity of tablet 00:00: mouth [place] 00 daily. Medical Branch metoprolol Yes [id number] 25mg Take 1 [facility] n[facility] succinate 4-28 tablet by ity o f XL 25 mg 24 00:00: mouth [place] hr tablet 00 daily. Medical Branch mupirocin 2 Yes [id number] Apply to [facility] % ointment 4-28 area(s) 3 ity of 00:00: (three) [place] 00 times Medical daily. Branch Apply 4g to affected area hand niacin 500 Yes [id number] 500mg Take 1 [facility] mg tablet 4-28 tablet by ity o f 00:00: mouth at [place] 00 bedtime. Medical Branch amLODIPine 2022- No [id number] 10mg Take 1 [facility] 10 mg 4-28 10-08 tablet by ity of tablet 00:00: 00:00 mouth [place] 00 :00 daily. Medical Branch mupirocin 2 2022- No [id number] Apply to [facility] % ointment 4-28 10-08 area(s) 3 ity of 00:00: 00:00 (three) [place] 00 :00 times Medical daily. Branch Apply 4g to affected area hand niacin 500 2022- No [id number] 500mg Take 1 [facility] mg tablet 11-17- tablet by ity of 00:00: 00:00 mouth at [place] 00 :00 bedtime. Medical Branch amLODIPine 2022- No [id number] 10mg Take 1 [facility] 10 mg 11-17 tablet by ity of tablet 00:00: 00:00 mouth [place] 00 :00 daily. Medical Branch mupirocin 2 2022- No [id number] Apply to [facility] % ointment 11-17 area(s) 3 ity of 00:00: 00:00 (three) [place] 00 :00 times Medical daily. Branch Apply 4g to affected area hand niacin 500 2022- No [id number] 500mg Take 1 [facility] mg tablet 11-17 tablet by ity of 00:00: 00:00 mouth at [place] 00 :00 bedtime. Medical Branch losartan-hy 2021- No [id number] 1{tbl} Take 1 [facility] drochloroth 11-17- tablet by it y of iazide 00:00: 00:00 mouth [place] 100-25 mg 00 :00 daily. Medical per tablet Branch metoprolol 2021- No [id number] 25mg Take 1 [facility] succinate 11-17- tablet by ity of XL 25 mg 24 00:00: 00:00 mouth [place] hr tablet 00 :00 daily. [facility] buPROPion 2020- No [id number] 150mg Take 1 [facility] SR 11-17-27 tablet by ity of (WELLBUTRIN 00:00: 00:00 mouth 2 [place] SR) 150 mg 00 :00 (two) Medical SR tablet times Branch daily. AMLODIPINE Yes [id number] TAKE 1 [facility] 10 mg 4-15 TABLET BY ity of tablet 00:00: MOUTH [place] 00 EVERY DAY Medical Branch AMLODIPINE 2020- No [id number] TAKE 1 [facility] 10 mg 4-15 -28 TABLET BY ity of tablet 00:00: 00:00 MOUTH [place] 00 :00 EVERY DAY Medical Branch AMLODIPINE 2020-0 2020- No [id number] TAKE 1 [facility] 10 mg 4-15 -28 TABLET BY ity of tablet 00:00: 00:00 MOUTH [place] 00 :00 EVERY DAY Medical Branch FLUTICASONE 2020-0 Yes [id number] SPRAY 1 [facility] PROPIONATE 3-31 SPRAY INTO ity of 50 00:00: EACH [place] mcg/actuati 00 NOSTRIL Medic al on nasal EVERY DAY Branch spray FLUTICASONE Yes [id number] SPRAY 1 [facility] PROPIONATE 3-31 SPRAY INTO ity of 50 00:00: EACH [place] mcg/actuati 00 NOSTRIL Medic al on nasal EVERY DAY Branch spray FLUTICASONE 2020- No [id number] SPRAY 1 [facility] PROPIONATE 3-31 -28 SPRAY INTO it y of 50 00:00: 00:00 EACH [place] mcg/actuati 00 :00 NOSTRIL Medic al on nasal EVERY DAY Branch spray FLUTICASONE 2020- No [id number] SPRAY 1 [facility] PROPIONATE 3-31 -28 SPRAY INTO it y of 50 00:00: 00:00 EACH [place] mcg/actuati 00 :00 NOSTRIL Medic al on nasal EVERY DAY Branch spray OMEPRAZOLE 2020-0 Yes [id number] TAKE 1 [facility] 40 mg 3-05 CAPSULE BY ity of capsule 00:00: MOUTH [place] 00 EVERY DAY Medical Branch OMEPRAZOLE 2020-0 Yes [id number] TAKE 1 [facility] 40 mg 3-05 CAPSULE BY ity of capsule 00:00: MOUTH [place] EVERY DAY Medical Branch OMEPRAZOLE 2020-0 Yes [id number] TAKE 1 [facility] 40 mg 3-05 CAPSULE BY ity of capsule 00:00: MOUTH [place] 00 EVERY DAY Medical Branch OMEPRAZOLE 2020-0 Yes [id number] TAKE 1 [facility] 40 mg 3-05 CAPSULE BY ity of capsule 00:00: MOUTH [place] EVERY DAY Medical Branch OMEPRAZOLE 2020-0 Yes [id number] TAKE 1 [facility] 40 mg 3-05 CAPSULE BY ity of capsule 00:00: MOUTH [place] EVERY DAY Medical Branch OMEPRAZOLE 2020-0 Yes [id number] TAKE 1 [facility] 40 mg 3-05 CAPSULE BY ity of capsule 00:00: MOUTH [place] EVERY DAY Medical Branch OMEPRAZOLE 2020-0 Yes [id number] TAKE 1 [facility] 40 mg 3-05 CAPSULE BY ity of capsule 00:00: MOUTH [place] 00 EVERY DAY Medical Branch OMEPRAZOLE 2021-0 Yes [id number] TAKE 1 [facility] 40 mg 3-05 CAPSULE BY ity of capsule 00:00: MOUTH [place] 00 EVERY DAY Medical Branch OMEPRAZOLE 2021-0 Yes [id number] TAKE 1 [facility] 40 mg 3-05 CAPSULE BY ity of capsule 00:00: MOUTH [place] 00 EVERY DAY Medical Branch OMEPRAZOLE 2021-0 Yes [id number] TAKE 1 [facility] 40 mg 3-05 CAPSULE BY ity of capsule 00:00: MOUTH [place] 00 EVERY DAY Medical Branch OMEPRAZOLE 2021-0 Yes [id number] TAKE 1 [facility] 40 mg 3-05 CAPSULE BY ity of capsule 00:00: MOUTH [place] 00 EVERY DAY Medical Branch OMEPRAZOLE 2021-0 Yes [id number] TAKE 1 [facility] 40 mg 3-05 CAPSULE BY ity of capsule 00:00: MOUTH [place] 00 EVERY DAY Medical Branch OMEPRAZOLE 2021-0 Yes [id number] TAKE 1 [facility] 40 mg 3-05 CAPSULE BY ity of capsule 00:00: MOUTH [place] 00 EVERY DAY Medical Branch OMEPRAZOLE 2021-0 Yes [id number] TAKE 1 [facility] 40 mg 3-05 CAPSULE BY ity of capsule 00:00: MOUTH [place] 00 EVERY DAY Medical Branch OMEPRAZOLE 2021-0 Yes [id number] TAKE 1 [facility] 40 mg 3-05 CAPSULE BY ity of capsule 00:00: MOUTH [place] 00 EVERY DAY Medical Branch OMEPRAZOLE 2021-0 Yes [id number] TAKE 1 [facility] 40 mg 3-05 CAPSULE BY ity of capsule 00:00: MOUTH [place] 00 EVERY DAY Medical Branch OMEPRAZOLE 2021-0 Yes [id number] TAKE 1 [facility] 40 mg 3-05 CAPSULE BY ity of capsule 00:00: MOUTH [place] 00 EVERY DAY Medical Branch OMEPRAZOLE 2021-0 2021- No [id number] TAKE 1 [facility] 40 mg 3-05 05-28 CAPSULE BY ity of capsule 00:00: 00:00 MOUTH [place] 00 :00 EVERY DAY Medical Branch FLUTICASONE 2020-0 Yes [id number] SPRAY 1 [facility] PROPIONATE 1-20 SPRAY INTO ity of 50 00:00: EACH [place] mcg/actuati 00 NOSTRIL Medic al on nasal EVERY DAY Branch spray FLUTICASONE 2020-0 Yes [id number] SPRAY 1 [facility] PROPIONATE 1-20 SPRAY INTO ity of 50 00:00: EACH [place] mcg/actuati 00 NOSTRIL Medic al on nasal EVERY DAY Branch spray FLUTICASONE 2020- No [id number] SPRAY 1 [facility] PROPIONATE 1-20 03-31 SPRAY INTO it y of 50 00:00: 00:00 EACH [place] mcg/actuati 00 :00 NOSTRIL Medic al on nasal EVERY DAY Branch spray cetirizine 2019-07 Yes [id number] 10mg Take 1 [facility] (ZYRTEC) 10 2-29 tablet by ity of mg tablet 00:00: mouth [place] 00 daily. Medical Branch fluticasone 2019-07 Yes [id number] 1{spray Use 1 [facility] propionate 2-29 } [facility] ity o f 50 00:00: each [place] mcg/actuati 00 nostril Medic al on nasal daily. Branch spray cetirizine 2019-07 Yes [id number] 10mg Take 1 [facility] (ZYRTEC) 10 2-29 tablet by ity of mg tablet 00:00: mouth [place] 00 daily. [facility] cetirizine 2019-07 Yes [id number] 10mg Take 1 [facility] (ZYRTEC) 10 2-29 tablet by ity of mg tablet 00:00: mouth [place] 00 daily. [facility] cetirizine 2019-07 Yes [id number] 10mg Take 1 [facility] (ZYRTEC) 10 2-29 tablet by ity of mg tablet 00:00: mouth [place] 00 daily. [facility] cetirizine 2019-07 Yes [id number] 10mg Take 1 [facility] (ZYRTEC) 10 2-29 tablet by ity of mg tablet 00:00: mouth [place] 00 daily. [facility] Branch cetirizine 2019-07- No [id number] 10mg Take 1 [facility] (ZYRTEC) 10 2-29 04-28 tablet by it y of mg tablet 00:00: 00:00 mouth [place] 00 :00 daily. [facility] cetirizine 2019-07- No [id number] 10mg Take 1 [facility] (ZYRTEC) 10 2-29 04-28 tablet by it y of mg tablet 00:00: 00:00 mouth [place] 00 :00 daily. [facility] fluticasone 2019-07- No [id number] 1{spray Use 1 [facility] propionate 2-29 01-20 } [facility] in ity of 50 00:00: 00:00 each [place] mcg/actuati 00 :00 nostril Medic al on nasal daily. Branch spray OMEPRAZOLE 2019- Yes [id number] TAKE 1 [facility] 40 mg 2-10 CAPSULE BY ity of capsule 00:00: MOUTH [place] 00 EVERY DAY Medical Branch OMEPRAZOLE 2019- Yes [id number] TAKE 1 [facility] 40 mg 2-10 CAPSULE BY ity of capsule 00:00: MOUTH [place] 00 EVERY DAY Medical Branch OMEPRAZOLE 2019- Yes [id number] TAKE 1 [facility] 40 mg 2-10 CAPSULE BY ity of capsule 00:00: MOUTH [place] 00 EVERY DAY Medical Branch OMEPRAZOLE 2019-2020- No [id number] TAKE 1 [facility] 40 mg 2-10 03-05 CAPSULE BY ity of capsule 00:00: 00:00 MOUTH [place] 00 :00 EVERY DAY Medical Branch amLODIPine 2019-07 Yes [id number] 10mg Take 1 [facility] 10 mg 0-13 tablet by ity of tablet 00:00: mouth [place] 00 daily. Medical Branch amLODIPine 2019-07 Yes [id number] 10mg Take 1 [facility] 10 mg 0-13 tablet by ity of tablet 00:00: mouth [place] 00 daily. Medical Branch amLODIPine 2019-07 Yes [id number] 10mg Take 1 [facility] 10 mg 0-13 tablet by ity of tablet 00:00: mouth [place] 00 daily. Medical Branch amLODIPine 2019-07 Yes [id number] 10mg Take 1 [facility] 10 mg 0-13 tablet by ity of tablet 00:00: mouth [place] 00 daily. Medical Branch amLODIPine 2019-07 Yes [id number] 10mg Take 1 [facility] 10 mg 0-13 tablet by ity of tablet 00:00: mouth [place] 00 daily. Medical Branch amLODIPine 2019-07 Yes [id number] 10mg Take 1 [facility] 10 mg 0-13 tablet by ity of tablet 00:00: mouth [place] 00 daily. Medical Branch amLODIPine 2019-07- No [id number] 10mg Take 1 [facility] 10 mg 0-13 04-15 tablet by ity of tablet 00:00: 00:00 mouth [place] 00 :00 daily. Medical Branch tadalafiL Yes [id number] 10mg Take 1 [facility] n[facility] (CIALIS) 10 9-24 tablet by ity of mg tablet 00:00: mouth [place] 00 needed for Medical Erectile Branch dysfunctio n (30 mins prior to sexual activity). tadalafiL 2020-0 Yes [id number] 10mg Take 1 [facility] nivers (CIALIS) 10 9-24 tablet by ity of mg tablet 00:00: mouth as [place] 00 needed for Medical Erectile Branch dysfunctio n (30 mins prior to sexual activity). tadalafiL 2020-0 Yes [id number] 10mg Take 1 [facility] nivers (CIALIS) 10 9-24 tablet by ity of mg tablet 00:00: mouth as [place] 00 needed for Medical Erectile Branch dysfunctio n (30 mins prior to sexual activity). tadalafiL 2020-0 Yes [id number] 10mg Take 1 [facility] nivers (CIALIS) 10 9-24 tablet by ity of mg tablet 00:00: mouth as [place] 00 needed for Medical Erectile Branch dysfunctio n (30 mins prior to sexual activity). tadalafiL 2020-0 Yes [id number] 10mg Take 1 [facility] nivers (CIALIS) 10 9-24 tablet by ity of mg tablet 00:00: mouth as [place] 00 needed for Medical Erectile Branch dysfunctio n (30 mins prior to sexual activity). tadalafiL 2020-0 Yes [id number] 10mg Take 1 [facility] nivers (CIALIS) 10 9-24 tablet by ity of mg tablet 00:00: mouth as [place] 00 needed for Medical Erectile Branch dysfunctio n (30 mins prior to sexual activity). tadalafiL 2020-0 Yes [id number] 10mg Take 1 [facility] nivers (CIALIS) 10 9-24 tablet by ity of mg tablet 00:00: mouth as [place] 00 needed for Medical Erectile Branch dysfunctio n (30 mins prior to sexual activity). tadalafiL 2020-0 Yes [id number] 10mg Take 1 [facility] nivers (CIALIS) 10 9-24 tablet by ity of mg tablet 00:00: mouth as [place] 00 needed for Medical Erectile Branch dysfunctio n (30 mins prior to sexual activity). tadalafiL 2020-0 Yes [id number] 10mg Take 1 [facility] nivers (CIALIS) 10 9-24 tablet by ity of mg tablet 00:00: mouth as [place] 00 needed for Medical Erectile Branch dysfunctio n (30 mins prior to sexual activity). tadalafiL 2020-0 Yes [id number] 10mg Take 1 [facility] nivers (CIALIS) 10 9-24 tablet by ity of mg tablet 00:00: mouth as [place] 00 needed for Medical Erectile Branch dysfunctio n (30 mins prior to sexual activity). tadalafiL 2020-0 Yes [id number] 10mg Take 1 [facility] nivers (CIALIS) 10 9-24 tablet by ity of mg tablet 00:00: mouth as [place] 00 needed for Medical Erectile Branch dysfunctio n (30 mins prior to sexual activity). tadalafiL 2020-0 Yes [id number] 10mg Take 1 [facility] nivers (CIALIS) 10 9-24 tablet by ity of mg tablet 00:00: mouth as [place] 00 needed for Medical Erectile Branch dysfunctio n (30 mins prior to sexual activity). tadalafiL 2020-0 Yes [id number] 10mg Take 1 [facility] nivers (CIALIS) 10 9-24 tablet by [facility]y of mg tablet 00:00: mouth as [place] 00 needed for Medical Erectile Branch dysfunctio n (30 mins prior to sexual activity). tadalafiL 2020-0 Yes [id number] 10mg Take 1 [facility] (CIALIS) 10 9-24 tablet by [facility] [place] needed for Medical Erectile Branch dysfunctio n (30 mins prior to sexual activity). tadalafiL 2020-0 Yes [id number] 10mg Take 1 [facility] (CIALIS) 10 9-24 tablet by [facility] tablet [place]: [place] needed for Medical Erectile Branch dysfunctio n (30 mins prior to sexual activity). tadalafiL 2020-0 Yes [id number] 10mg Take 1 [facility] (CIALIS) 10 9-24 tablet by [facility] mg tablet 00:00: mouth [place] needed for Medical Erectile Branch dysfunctio n (30 mins prior to sexual activity). tadalafiL 2020-0 Yes [id number] 10mg Take 1 [facility] (CIALIS) 10 9-24 tablet by [facility] mg tablet 00:00: mouth [place] needed for Medical Erectile Branch dysfunctio n (30 mins prior to sexual activity). tadalafiL 2020-0 Yes [id number] 10mg Take 1 [facility] (CIALIS) 10 9-24 tablet by [facility] mg tablet 00:00: mouth [place] needed for Medical Erectile Branch dysfunctio n (30 mins prior to sexual activity). tadalafiL 2020-0 Yes [id number] 10mg Take 1 [facility] (CIALIS) 10 9-24 tablet by [facility] mg tablet 00:00: mouth [place] needed for Medical Erectile Branch dysfunctio n (30 mins prior to sexual activity). tadalafiL 2020-0 Yes [id number] 10mg Take 1 [facility] (CIALIS) 10 9-24 tablet by [facility] mg tablet 00:00: mouth [place] needed for Medical Erectile Branch dysfunctio n (30 mins prior to sexual activity). tadalafiL 2020-0 Yes [id number] 10mg Take 1 [facility] (CIALIS) 10 9-24 tablet by [facility] mg tablet 00:00: mouth [place] 00 needed for Medical Erectile Branch dysfunctio n (30 mins prior to sexual activity). tadalafiL 2020-0 Yes [id number] 10mg Take 1 [facility] (CIALIS) 10 9-24 tablet by [facility] mg tablet 00:00: mouth [place] 00 needed for Medical Erectile Branch dysfunctio n (30 mins prior to sexual activity). tadalafiL 2020-0 Yes [id number] 10mg Take 1 [facility] (CIALIS) 10 9-24 tablet by [facility] mg tablet 00:00: mouth [place] 00 needed for Medical Erectile Branch dysfunctio n (30 mins prior to sexual activity). tadalafiL 2020-0 Yes [id number] 10mg Take 1 [facility] (CIALIS) 10 9-24 tablet by [facility] mg tablet 00:00: mouth [place] 00 needed for Medical Erectile Branch dysfunctio n (30 mins prior to sexual activity). tadalafiL 2020-0 Yes [id number] 10mg Take 1 [facility] (CIALIS) 10 9-24 tablet by [facility] mg tablet 00:00: mouth [place] needed for Medical Erectile Branch dysfunctio n (30 mins prior to sexual activity). tadalafiL 2020-0 Yes [id number] 10mg Take 1 [facility] (CIALIS) 10 9-24 tablet by [facility] mg tablet 00:00: mouth [place] 00 needed for Medical Erectile Branch dysfunctio n (30 mins prior to sexual activity). tadalafiL 2020-0 Yes [id number] 10mg Take 1 [facility] (CIALIS) 10 9-24 tablet by [facility] mg tablet 00:00: mouth [place] needed for Medical Erectile Branch dysfunctio n (30 mins prior to sexual activity). tadalafiL 2020-0 Yes [id number] 10mg Take 1 [facility] (CIALIS) 10 9-24 tablet by [facility] mg tablet 00:00: mouth [place] 00 needed for Medical Erectile Branch dysfunctio n (30 mins prior to sexual activity). tadalafiL 2020-0 Yes [id number] 10mg Take 1 [facility] (CIALIS) 10 9-24 tablet by [facility] mg tablet 00:00: mouth [place] 00 needed for Medical Erectile Branch dysfunctio n (30 mins prior to sexual activity). tadalafiL 2020-0 Yes [id number] 10mg Take 1 [facility] (CIALIS) 10 9-24 tablet by [facility] mg tablet 00:00: mouth [place] 00 needed for Medical Erectile Branch dysfunctio n (30 mins prior to sexual activity). tadalafiL 2020-0 Yes [id number] 10mg Take 1 [facility] (CIALIS) 10 9-24 tablet by [facility] mg tablet 00:00: mouth [place] 00 needed for Medical Erectile Branch dysfunctio n (30 mins prior to sexual activity). tadalafiL 2020-0 Yes [id number] 10mg Take 1 [facility] (CIALIS) 10 9-24 tablet by [facility] mg tablet 00:00: mouth [place] 00 needed for Medical Erectile Branch dysfunctio n (30 mins prior to sexual activity). tadalafiL 2020-0 Yes [id number] 10mg Take 1 [facility] (CIALIS) 10 9-24 tablet by [facility] mg tablet 00:00: mouth [place] 00 needed for Medical Erectile Branch dysfunctio n (30 mins prior to sexual activity). tadalafiL 2020-0 Yes [id number] 10mg Take 1 [facility] (CIALIS) 10 9-24 tablet by [facility] mg tablet 00:00: mouth [place] 00 needed for Medical Erectile Branch dysfunctio n (30 mins prior to sexual activity). tadalafiL 2020-0 Yes [id number] 10mg Take 1 [facility] (CIALIS) 10 9-24 tablet by [facility] mg tablet 00:00: mouth [place] 00 needed for Medical Erectile Branch dysfunctio n (30 mins prior to sexual activity). tadalafiL 2020-0 Yes [id number] 10mg Take 1 [facility] (CIALIS) 10 9-24 tablet by [facility] mg tablet 00:00: mouth [place] 00 needed for Medical Erectile Branch dysfunctio n (30 mins prior to sexual activity). tadalafiL 2020-0 Yes [id number] 10mg Take 1 [facility] (CIALIS) 10 9-24 tablet by [facility] mg tablet 00:00: mouth [place] 00 needed for Medical Erectile Branch dysfunctio n (30 mins prior to sexual activity). tadalafiL 2020-0 2022- No [id number] 10mg Take 1 [facility] (CIALIS) 10 9-24 10-08 tablet by it y of mg tablet 00:00: 00:00 mouth as [place] as 00 :00 needed for Medical Erectile Branch dysfunctio n (30 mins prior to sexual activity). tadalafiL 2020-0 2022- No [id number] 10mg Take 1 [facility] (CIALIS) 10 9-24 10-08 tablet by it y of mg tablet 00:00: 00:00 mouth as [place] as 00 :00 needed for Medical Erectile Branch dysfunctio n (30 mins prior to sexual activity). HYDROcodone 2020-0 Yes .5{tbl} Take 0.5 [facility] -acetaminop 9-01 tablets by it y of hen 7.5-325 14:04: mouth [place] mg per 34 every 4 Medical tablet (four) Branch hours. citalopram 2020-0 Yes 20mg Take 20 mg [facility] 20 mg 9-01 by mouth ity of tablet 14:04: daily. [place] [address] Medical Branch ARIPiprazol 2020-0 Yes 10mg Take 10 mg [facility] 10 mg 9-01 by mouth ity of tablet 14:04: daily. [place] [address] Medical Branch traZODone 2020-0 Yes 50mg Take 50 mg [place] 50 mg 9-01 by mouth ity of tablet 14:04: at [place] [address] bedtime. Medical Branch HYDROcodone 2020-0 Yes .5{tbl} Take 0.5 [facility] -acetaminop 9-01 tablets by it y of hen 7.5-325 14:04: mouth [place] mg per 34 every 4 Medical tablet (four) Branch hours. citalopram 2020-0 Yes 20mg Take 20 mg [facility] 20 mg 9-01 by mouth ity of tablet 14:04: daily. [place] [address] Medical Branch ARIPiprazol 2020-0 Yes 10mg Take 10 mg [facility] 10 mg 9-01 by mouth ity of tablet 14:04: daily. [place] [address] Medical Branch traZODone 2020-0 Yes 50mg Take 50 mg [place] 50 mg 9-01 by mouth ity of tablet 14:04: at [place] [address] bedtime. Medical Branch HYDROcodone 2020-0 Yes .5{tbl} Take 0.5 [facility] -acetaminop 9-01 tablets by it y of hen 7.5-325 14:04: mouth [place] mg per 34 every 4 Medical tablet (four) Branch hours. citalopram 2020-0 Yes 20mg Take 20 mg [facility] 20 mg 9-01 by mouth ity of tablet 14:04: daily. [place] [address] Medical Branch ARIPiprazol 2020-0 Yes 10mg Take 10 mg [facility] 10 mg 9-01 by mouth ity of tablet 14:04: daily. [place] [address] Medical Branch traZODone 2020-0 Yes 50mg Take 50 mg [place] 50 mg 9-01 by mouth ity of tablet 14:04: at [place] [address] bedtime. Medical Branch HYDROcodone 2020-0 Yes .5{tbl} Take 0.5 [facility] -acetaminop 9-01 tablets by it y of hen 7.5-325 14:04: mouth [place] mg per 34 every 4 Medical tablet (four) Branch hours. citalopram 2020-0 Yes 20mg Take 20 mg [facility] 20 mg 9-01 by mouth ity of tablet 14:04: daily. [place] [address] Medical Branch ARIPiprazol 2020-0 Yes 10mg Take 10 mg [facility] 10 mg 9-01 by mouth ity of tablet 14:04: daily. [place] [address] Medical Branch traZODone 2020-0 Yes 50mg Take 50 mg [place] 50 mg 9-01 by mouth ity of tablet 14:04: at [place] [address] bedtime. Medical Branch HYDROcodone 2020-0 Yes .5{tbl} Take 0.5 [facility] -acetaminop 9-01 tablets by it y of hen 7.5-325 14:04: mouth [place] mg per 34 every 4 Medical tablet (four) Branch hours. citalopram 2020-0 Yes 20mg Take 20 mg [facility] 20 mg 9-01 by mouth ity of tablet 14:04: daily. [place] [address] Medical Branch ARIPiprazol 2020-0 Yes 10mg Take 10 mg [facility] 10 mg 9-01 by mouth ity of tablet 14:04: daily. [place] [address] Medical Branch traZODone 2020-0 Yes 50mg Take 50 mg [place] 50 mg 9-01 by mouth ity of tablet 14:04: at [place] [address] bedtime. Medical Branch HYDROcodone 2020-0 Yes .5{tbl} Take 0.5 [facility] -acetaminop 9-01 tablets by it y of hen 7.5-325 14:04: mouth [place] mg per 34 every 4 Medical tablet (four) Branch hours. citalopram 2020-0 Yes 20mg Take 20 mg [facility] 20 mg 9-01 by mouth ity of tablet 14:04: daily. [place] [address] Medical Branch ARIPiprazol 2020-0 Yes 10mg Take 10 mg [facility] 10 mg 9-01 by mouth ity of tablet 14:04: daily. [place] [address] Medical Branch traZODone 2020-0 Yes 50mg Take 50 mg [place] 50 mg 9-01 by mouth ity of tablet 14:04: at [place] [address] bedtime. Medical Branch HYDROcodone 2020-0 Yes .5{tbl} Take 0.5 [facility] -acetaminop 9-01 tablets by it y of hen 7.5-325 14:04: mouth [place] mg per 34 every 4 Medical tablet (four) Branch hours. citalopram 2020-0 Yes 20mg Take 20 mg [facility] 20 mg 9-01 by mouth ity of tablet 14:04: daily. [place] [address] Medical Branch ARIPiprazol 2020-0 Yes 10mg Take 10 mg [facility] 10 mg 9-01 by mouth ity of tablet 14:04: daily. [place] [address] Medical Branch traZODone 2020-0 Yes 50mg Take 50 mg [place] 50 mg 9-01 by mouth ity of tablet 14:04: at [place] [address] bedtime. Medical Branch HYDROcodone 2020-0 Yes .5{tbl} Take 0.5 [facility] -acetaminop 9-01 tablets by it y of hen 7.5-325 14:04: mouth [place] mg per 34 every 4 Medical tablet (four) Branch hours. citalopram 2020-0 Yes 20mg Take 20 mg [facility] 20 mg 9-01 by mouth ity of tablet 14:04: daily. [place] [address] Medical Branch ARIPiprazol 2020-0 Yes 10mg Take 10 mg [facility] 10 mg 9-01 by mouth ity of tablet 14:04: daily. [place] [address] Medical Branch traZODone 2020-0 Yes 50mg Take 50 mg [place] 50 mg 9-01 by mouth ity of tablet 14:04: at [place] [address] bedtime. Medical Branch HYDROcodone 2020-0 Yes .5{tbl} Take 0.5 [facility] -acetaminop 9-01 tablets by it y of hen 7.5-325 14:04: mouth [place] mg per 34 every 4 Medical tablet (four) Branch hours. citalopram 2020-0 Yes 20mg Take 20 mg [facility] 20 mg 9-01 by mouth ity of tablet 14:04: daily. [place] [address] Medical Branch ARIPiprazol 2020-0 Yes 10mg Take 10 mg [facility] 10 mg 9-01 by mouth ity of tablet 14:04: daily. [place] [address] Medical Branch traZODone 2020-0 Yes 50mg Take 50 mg [place] 50 mg 9-01 by mouth ity of tablet 14:04: at [place] [address] bedtime. Medical Branch HYDROcodone 2020-0 Yes .5{tbl} Take 0.5 [facility] -acetaminop 9-01 tablets by it y of hen 7.5-325 14:04: mouth [place] mg per 34 every 4 Medical tablet (four) Branch hours. citalopram 2020-0 Yes 20mg Take 20 mg [facility] 20 mg 9-01 by mouth ity of tablet 14:04: daily. [place] [address] Medical Branch ARIPiprazol 2020-0 Yes 10mg Take 10 mg [facility] 10 mg 9-01 by mouth ity of tablet 14:04: daily. [place] [address] Medical Branch traZODone 2020-0 Yes 50mg Take 50 mg [place] 50 mg 9-01 by mouth ity of tablet 14:04: at [place] [address] bedtime. Medical Branch HYDROcodone 2020-0 Yes .5{tbl} Take 0.5 [facility] -acetaminop 9-01 tablets by it y of hen 7.5-325 14:04: mouth [place] mg per 34 every 4 Medical tablet (four) Branch hours. citalopram 2020-0 Yes 20mg Take 20 mg [facility] 20 mg 9-01 by mouth ity of tablet 14:04: daily. [place] [address] Medical Branch ARIPiprazol 2020-0 Yes 10mg Take 10 mg [facility] 10 mg 9-01 by mouth ity of tablet 14:04: daily. [place] [address] Medical Branch traZODone 2020-0 Yes 50mg Take 50 mg [place] 50 mg 9-01 by mouth ity of tablet 14:04: at [place] [address] bedtime. Medical Branch HYDROcodone 2020-0 Yes .5{tbl} Take 0.5 [facility] -acetaminop 9-01 tablets by it y of hen 7.5-325 14:04: mouth [place] mg per 34 every 4 Medical tablet (four) Branch hours. citalopram 2020-0 Yes 20mg Take 20 mg [facility] 20 mg 9-01 by mouth ity of tablet 14:04: daily. [place] [address] Medical Branch ARIPiprazol 2020-0 Yes 10mg Take 10 mg [facility] 10 mg 9-01 by mouth ity of tablet 14:04: daily. [place] [address] Medical Branch traZODone 2020-0 Yes 50mg Take 50 mg [place] 50 mg 9-01 by mouth ity of tablet 14:04: at [place] [address] bedtime. Medical Branch HYDROcodone 2020-0 Yes .5{tbl} Take 0.5 [facility] -acetaminop 9-01 tablets by it y of hen 7.5-325 14:04: mouth [place] mg per 34 every 4 Medical tablet (four) Branch hours. citalopram 2020-0 Yes 20mg Take 20 mg [facility] 20 mg 9-01 by mouth ity of tablet 14:04: daily. [place] [address] Medical Branch ARIPiprazol 2020-0 Yes 10mg Take 10 mg [facility] 10 mg 9-01 by mouth ity of tablet 14:04: daily. [place] [address] Medical Branch traZODone 2020-0 Yes 50mg Take 50 mg [place] 50 mg 9-01 by mouth ity of tablet 14:04: at [place] [address] bedtime. Medical Branch HYDROcodone 2020-0 Yes .5{tbl} Take 0.5 [facility] -acetaminop 9-01 tablets by it y of hen 7.5-325 14:04: mouth [place] mg per 34 every 4 Medical tablet (four) Branch hours. citalopram 2020-0 Yes 20mg Take 20 mg [facility] 20 mg 9-01 by mouth ity of tablet 14:04: daily. [address] Branch ARIPiprazol 2020-0 Yes 10mg Take 10 mg [facility] 10 mg 9-01 by mouth ity of tablet 14:04: daily. [address] Branch traZODone 2020-0 Yes 50mg Take 50 mg [place] 50 mg 9-01 by mouth ity of tablet 14:04: at [place] [address] bedtime. Medical Branch citalopram 2020-0 Yes 20mg Take 20 mg [facility] 20 mg 9-01 by mouth ity of tablet 14:04: daily. [address] ARIPiprazol 2020-0 Yes 10mg Take 10 mg [facility] 10 mg 9-01 by mouth ity of tablet 14:04: daily. [address] Branch traZODone 2020-0 Yes 50mg Take 50 mg [place] 50 mg 9-01 by mouth ity of tablet 14:04: at [place] [address] bedtime. Medical Branch citalopram 2020-0 Yes 20mg Take 20 mg [facility] 20 mg 9-01 by mouth ity of tablet 14:04: daily. [address] ARIPiprazol 2020-0 Yes 10mg Take 10 mg [facility] 10 mg 9-01 by mouth ity of tablet 14:04: daily. [address] Branch traZODone 2020-0 Yes 50mg Take 50 mg [place] 50 mg -01 by mouth ity of tablet 14:04: at [place] [address] bedtime. Medical Branch citalopram 2020-0 Yes 20mg Take 20 mg [facility] 20 mg - by mouth ity of tablet 14:04: daily. [place] [address] Medical Branch ARIPiprazol 2020-0 Yes 10mg Take 10 mg [facility] 10 mg 03-23 by mouth ity of tablet 14:04: daily. [place] [address] Medical Branch traZODone 2020-0 Yes 50mg Take 50 mg [place] 50 mg - by mouth ity of tablet 14:04: at [place] [address] bedtime. Medical Branch sildenafiL 2020-0 Yes [id number] 25mg Take 1 [facility] (VIAGRA) 25 03-23 tablet by [facility] of mg tablet 00:00: mouth [place] needed Medical (Erectile Branch dysfunctio n). Take 1 Tab 30 mins to 1 Hr prior to sexual encounter. Max 2 Tabs within 24H. Do not mix with alcohol or other medication s. nicotine 14 2019-0 Yes [id number] 1{patch Apply 1 [facility] mg/24 hr 9- } Patch to ity of patch 00:00: area(s) [place] 00 every 24 Medical (twenty-fo Branch ur) hours. Apply 21mg patch daily x 6 weeks, then apply 14mg patch daily x 2 weeks, then apply 7mg patch daily x 2 weeks. Stop smoking with onset of treatment. nicotine 21 2020-0 Yes [id number] 1{patch Apply 1 [facility] mg/24 hr 9- } Patch to ity of patch 00:00: area(s) [place] 00 every 24 Medical (twenty-fo Branch ur) hours. Apply 21mg patch daily x 6 weeks, then apply 14mg patch daily x 2 weeks, then apply 7mg patch daily x 2 weeks. Stop smoking with onset of treatment. nicotine 7 2020-0 Yes [id number] 1{patch Apply 1 [facility] mg/24 hr 9- } Patch to ity of patch 00:00: area(s) [place] 00 every 24 Medical (twenty-fo Branch ur) hours. Apply 21mg patch daily x 6 weeks, then apply 14mg patch daily x 2 weeks, then apply 7mg patch daily x 2 weeks. Stop smoking with onset of treatment. sildenafiL 2020-0 Yes [id number] 25mg Take 1 [facility] (VIAGRA) 25 9-01 tablet by it[facility] of mg tablet 00:00: mouth [place] 00 needed Medical (Erectile Branch dysfunctio n). Take 1 Tab 30 mins to 1 Hr prior to sexual encounter. Max 2 Tabs within 24H. Do not mix with alcohol or other medication s. nicotine 14 2019-0 Yes [id number] 1{patch Apply 1 [facility] mg/24 hr 9- } Patch to ity of patch 00:00: area(s) [place] 00 every 24 Medical (twenty-fo Branch ur) hours. Apply 21mg patch daily x 6 weeks, then apply 14mg patch daily x 2 weeks, then apply 7mg patch daily x 2 weeks. Stop smoking with onset of treatment. nicotine 21 2019-0 Yes [id number] 1{patch Apply 1 [facility] mg/24 hr 9 } Patch to ity of patch 00:00: area(s) [place] 00 every 24 Medical (twenty-fo Branch ur) hours. Apply 21mg patch daily x 6 weeks, then apply 14mg patch daily x 2 weeks, then apply 7mg patch daily x 2 weeks. Stop smoking with onset of treatment. nicotine 7 2019-0 Yes [id number] 1{patch Apply 1 [facility] mg/24 hr 9 } Patch to ity of patch 00:00: area(s) [place] 00 every 24 Medical (twenty-fo Branch ur) hours. Apply 21mg patch daily x 6 weeks, then apply 14mg patch daily x 2 weeks, then apply 7mg patch daily x 2 weeks. Stop smoking with onset of treatment. sildenafiL 2020-0 Yes [id number] 25mg Take 1 [facility] (VIAGRA) 25 9- tablet by ity of mg tablet 00:00: mouth [place] 00 needed Medical (Erectile Branch dysfunctio n). Take 1 Tab 30 mins to 1 Hr prior to sexual encounter. Max 2 Tabs within 24H. Do not mix with alcohol or other medication s. nicotine 14 2019-0 Yes [id number] 1{patch Apply 1 [facility] mg/24 hr 9- } Patch to ity of patch 00:00: area(s) [place] 00 every 24 Medical (twenty-fo Branch ur) hours. Apply 21mg patch daily x 6 weeks, then apply 14mg patch daily x 2 weeks, then apply 7mg patch daily x 2 weeks. Stop smoking with onset of treatment. nicotine 21 2019-0 Yes [id number] 1{patch Apply 1 [facility] mg/24 hr 9-01 } Patch to ity of patch 00:00: area(s) [place] 00 every 24 Medical (twenty-fo Branch ur) hours. Apply 21mg patch daily x 6 weeks, then apply 14mg patch daily x 2 weeks, then apply 7mg patch daily x 2 weeks. Stop smoking with onset of treatment. nicotine 7 2019-0 Yes [id number] 1{patch Apply 1 [facility] mg/24 hr 9-01 } Patch to ity of patch 00:00: area(s) [place] 00 every 24 Medical (twenty-fo Branch ur) hours. Apply 21mg patch daily x 6 weeks, then apply 14mg patch daily x 2 weeks, then apply 7mg patch daily x 2 weeks. Stop smoking with onset of treatment. nicotine 14 2019-0 Yes [id number] 1{patch Apply 1 [facility] mg/24 hr 9-01 } Patch to ity of patch 00:00: area(s) [place] 00 every 24 Medical (twenty-fo Branch ur) hours. Apply 21mg patch daily x 6 weeks, then apply 14mg patch daily x 2 weeks, then apply 7mg patch daily x 2 weeks. Stop smoking with onset of treatment. nicotine 21 2019- Yes [id number] 1{patch Apply 1 [facility] mg/24 hr 9-01 } Patch to ity of patch 00:00: area(s) [place] 00 every 24 Medical (twenty-fo Branch ur) hours. Apply 21mg patch daily x 6 weeks, then apply 14mg patch daily x 2 weeks, then apply 7mg patch daily x 2 weeks. Stop smoking with onset of treatment. nicotine 7 2019-0 Yes [id number] 1{patch Apply 1 [facility] mg/24 hr 9-01 } Patch to ity of patch 00:00: area(s) [place] 00 every 24 Medical (twenty-fo Branch ur) hours. Apply 21mg patch daily x 6 weeks, then apply 14mg patch daily x 2 weeks, then apply 7mg patch daily x 2 weeks. Stop smoking with onset of treatment. nicotine 14 2019-0 Yes [id number] 1{patch Apply 1 [facility] mg/24 hr 9-01 } Patch to ity of patch 00:00: area(s) [place] 00 every 24 Medical (twenty-fo Branch ur) hours. Apply 21mg patch daily x 6 weeks, then apply 14mg patch daily x 2 weeks, then apply 7mg patch daily x 2 weeks. Stop smoking with onset of treatment. nicotine 21 2019-0 Yes [id number] 1{patch Apply 1 [facility] mg/24 hr 9-01 } Patch to ity of patch 00:00: area(s) [place] 00 every 24 Medical (twenty-fo Branch ur) hours. Apply 21mg patch daily x 6 weeks, then apply 14mg patch daily x 2 weeks, then apply 7mg patch daily x 2 weeks. Stop smoking with onset of treatment. nicotine 7 2019- Yes [id number] 1{patch Apply 1 [facility] mg/24 hr 9-01 } Patch to ity of patch 00:00: area(s) [place] 00 every 24 Medical (twenty-fo Branch ur) hours. Apply 21mg patch daily x 6 weeks, then apply 14mg patch daily x 2 weeks, then apply 7mg patch daily x 2 weeks. Stop smoking with onset of treatment. nicotine 14 2019- Yes [id number] 1{patch Apply 1 [facility] mg/24 hr 9-01 } Patch to ity of patch 00:00: area(s) [place] 00 every 24 Medical (twenty-fo Branch ur) hours. Apply 21mg patch daily x 6 weeks, then apply 14mg patch daily x 2 weeks, then apply 7mg patch daily x 2 weeks. Stop smoking with onset of treatment. nicotine 21 2019- Yes [id number] 1{patch Apply 1 [facility] mg/24 hr 9-01 } Patch to ity of patch 00:00: area(s) [place] 00 every 24 Medical (twenty-fo Branch ur) hours. Apply 21mg patch daily x 6 weeks, then apply 14mg patch daily x 2 weeks, then apply 7mg patch daily x 2 weeks. Stop smoking with onset of treatment. nicotine 7 2019-0 Yes [id number] 1{patch Apply 1 [facility] mg/24 hr 9-01 } Patch to ity of patch 00:00: area(s) [place] 00 every 24 Medical (twenty-fo Branch ur) hours. Apply 21mg patch daily x 6 weeks, then apply 14mg patch daily x 2 weeks, then apply 7mg patch daily x 2 weeks. Stop smoking with onset of treatment. nicotine 14 2019-0 Yes [id number] 1{patch Apply 1 [facility] mg/24 hr 9-01 } Patch to ity of patch 00:00: area(s) [place] 00 every 24 Medical (twenty-fo Branch ur) hours. Apply 21mg patch daily x 6 weeks, then apply 14mg patch daily x 2 weeks, then apply 7mg patch daily x 2 weeks. Stop smoking with onset of treatment. nicotine 21 2019-0 Yes [id number] 1{patch Apply 1 [facility] mg/24 hr 9-01 } Patch to ity of patch 00:00: area(s) [place] 00 every 24 Medical (twenty-fo Branch ur) hours. Apply 21mg patch daily x 6 weeks, then apply 14mg patch daily x 2 weeks, then apply 7mg patch daily x 2 weeks. Stop smoking with onset of treatment. nicotine 7 2019-0 Yes [id number] 1{patch Apply 1 [facility] mg/24 hr 9-01 } Patch to ity of patch 00:00: area(s) [place] 00 every 24 Medical (twenty-fo Branch ur) hours. Apply 21mg patch daily x 6 weeks, then apply 14mg patch daily x 2 weeks, then apply 7mg patch daily x 2 weeks. Stop smoking with onset of treatment. nicotine 14 2019-0 Yes [id number] 1{patch Apply 1 [facility] mg/24 hr 9-01 } Patch to ity of patch 00:00: area(s) [place] 00 every 24 Medical (twenty-fo Branch ur) hours. Apply 21mg patch daily x 6 weeks, then apply 14mg patch daily x 2 weeks, then apply 7mg patch daily x 2 weeks. Stop smoking with onset of treatment. nicotine 21 2019-0 Yes [id number] 1{patch Apply 1 [facility] mg/24 hr 9-01 } Patch to ity of patch 00:00: area(s) [place] 00 every 24 Medical (twenty-fo Branch ur) hours. Apply 21mg patch daily x 6 weeks, then apply 14mg patch daily x 2 weeks, then apply 7mg patch daily x 2 weeks. Stop smoking with onset of treatment. nicotine 7 2019-0 Yes [id number] 1{patch Apply 1 [facility] mg/24 hr 9-01 } Patch to ity of patch 00:00: area(s) [place] 00 every 24 Medical (twenty-fo Branch ur) hours. Apply 21mg patch daily x 6 weeks, then apply 14mg patch daily x 2 weeks, then apply 7mg patch daily x 2 weeks. Stop smoking with onset of treatment. nicotine 14 2019-0 Yes [id number] 1{patch Apply 1 [facility] mg/24 hr 9-01 } Patch to ity of patch 00:00: area(s) [place] 00 every 24 Medical (twenty-fo Branch ur) hours. Apply 21mg patch daily x 6 weeks, then apply 14mg patch daily x 2 weeks, then apply 7mg patch daily x 2 weeks. Stop smoking with onset of treatment. nicotine 21 2019-0 Yes [id number] 1{patch Apply 1 [facility] mg/24 hr 9-01 } Patch to ity of patch 00:00: area(s) [place] 00 every 24 Medical (twenty-fo Branch ur) hours. Apply 21mg patch daily x 6 weeks, then apply 14mg patch daily x 2 weeks, then apply 7mg patch daily x 2 weeks. Stop smoking with onset of treatment. nicotine 7 2019-0 Yes [id number] 1{patch Apply 1 [facility] mg/24 hr 9-01 } Patch to ity of patch 00:00: area(s) [place] 00 every 24 Medical (twenty-fo Branch ur) hours. Apply 21mg patch daily x 6 weeks, then apply 14mg patch daily x 2 weeks, then apply 7mg patch daily x 2 weeks. Stop smoking with onset of treatment. nicotine 14 2019-0 Yes [id number] 1{patch Apply 1 [facility] mg/24 hr 9-01 } Patch to ity of patch 00:00: area(s) [place] 00 every 24 Medical (twenty-fo Branch ur) hours. Apply 21mg patch daily x 6 weeks, then apply 14mg patch daily x 2 weeks, then apply 7mg patch daily x 2 weeks. Stop smoking with onset of treatment. nicotine 21 2019-0 Yes [id number] 1{patch Apply 1 [facility] mg/24 hr 9-01 } Patch to ity of patch 00:00: area(s) [place] 00 every 24 Medical (twenty-fo Branch ur) hours. Apply 21mg patch daily x 6 weeks, then apply 14mg patch daily x 2 weeks, then apply 7mg patch daily x 2 weeks. Stop smoking with onset of treatment. nicotine 7 2019-0 Yes [id number] 1{patch Apply 1 [facility] mg/24 hr 9-01 } Patch to ity of patch 00:00: area(s) [place] 00 every 24 Medical (twenty-fo Branch ur) hours. Apply 21mg patch daily x 6 weeks, then apply 14mg patch daily x 2 weeks, then apply 7mg patch daily x 2 weeks. Stop smoking with onset of treatment. nicotine 14 2019-0 Yes [id number] 1{patch Apply 1 [facility] mg/24 hr 9-01 } Patch to ity of patch 00:00: area(s) [place] 00 every 24 Medical (twenty-fo Branch ur) hours. Apply 21mg patch daily x 6 weeks, then apply 14mg patch daily x 2 weeks, then apply 7mg patch daily x 2 weeks. Stop smoking with onset of treatment. nicotine 21 2019-0 Yes [id number] 1{patch Apply 1 [facility] mg/24 hr 9-01 } Patch to ity of patch 00:00: area(s) [place] 00 every 24 Medical (twenty-fo Branch ur) hours. Apply 21mg patch daily x 6 weeks, then apply 14mg patch daily x 2 weeks, then apply 7mg patch daily x 2 weeks. Stop smoking with onset of treatment. nicotine 7 2019-0 Yes [id number] 1{patch Apply 1 [facility] mg/24 hr 9-01 } Patch to ity of patch 00:00: area(s) [place] 00 every 24 Medical (twenty-fo Branch ur) hours. Apply 21mg patch daily x 6 weeks, then apply 14mg patch daily x 2 weeks, then apply 7mg patch daily x 2 weeks. Stop smoking with onset of treatment. nicotine 14 2019-0 Yes [id number] 1{patch Apply 1 [facility] mg/24 hr 9-01 } Patch to ity of patch 00:00: area(s) [place] 00 every 24 Medical (twenty-fo Branch ur) hours. Apply 21mg patch daily x 6 weeks, then apply 14mg patch daily x 2 weeks, then apply 7mg patch daily x 2 weeks. Stop smoking with onset of treatment. nicotine 21 2019-0 Yes [id number] 1{patch Apply 1 [facility] mg/24 hr 9-01 } Patch to ity of patch 00:00: area(s) [place] 00 every 24 Medical (twenty-fo Branch ur) hours. Apply 21mg patch daily x 6 weeks, then apply 14mg patch daily x 2 weeks, then apply 7mg patch daily x 2 weeks. Stop smoking with onset of treatment. nicotine 7 2019-0 Yes [id number] 1{patch Apply 1 [facility] mg/24 hr 9-01 } Patch to ity of patch 00:00: area(s) [place] 00 every 24 Medical (twenty-fo Branch ur) hours. Apply 21mg patch daily x 6 weeks, then apply 14mg patch daily x 2 weeks, then apply 7mg patch daily x 2 weeks. Stop smoking with onset of treatment. nicotine 14 2019-0 Yes [id number] 1{patch Apply 1 [facility] mg/24 hr 9-01 } Patch to ity of patch 00:00: area(s) [place] 00 every 24 Medical (twenty-fo Branch ur) hours. Apply 21mg patch daily x 6 weeks, then apply 14mg patch daily x 2 weeks, then apply 7mg patch daily x 2 weeks. Stop smoking with onset of treatment. nicotine 21 2019-0 Yes [id number] 1{patch Apply 1 [facility] mg/24 hr 9-01 } Patch to ity of patch 00:00: area(s) [place] 00 every 24 Medical (twenty-fo Branch ur) hours. Apply 21mg patch daily x 6 weeks, then apply 14mg patch daily x 2 weeks, then apply 7mg patch daily x 2 weeks. Stop smoking with onset of treatment. nicotine 7 2019-0 Yes [id number] 1{patch Apply 1 [facility] mg/24 hr 9-01 } Patch to ity of patch 00:00: area(s) [place] 00 every 24 Medical (twenty-fo Branch ur) hours. Apply 21mg patch daily x 6 weeks, then apply 14mg patch daily x 2 weeks, then apply 7mg patch daily x 2 weeks. Stop smoking with onset of treatment. nicotine 14 2019-0 Yes [id number] 1{patch Apply 1 [facility] mg/24 hr 9-01 } Patch to ity of patch 00:00: area(s) [place] 00 every 24 Medical (twenty-fo Branch ur) hours. Apply 21mg patch daily x 6 weeks, then apply 14mg patch daily x 2 weeks, then apply 7mg patch daily x 2 weeks. Stop smoking with onset of treatment. nicotine 21 2019-0 Yes [id number] 1{patch Apply 1 [facility] mg/24 hr 9-01 } Patch to ity of patch 00:00: area(s) [place] 00 every 24 Medical (twenty-fo Branch ur) hours. Apply 21mg patch daily x 6 weeks, then apply 14mg patch daily x 2 weeks, then apply 7mg patch daily x 2 weeks. Stop smoking with onset of treatment. nicotine 7 Yes [id number] 1{patch Apply 1 [facility] mg/24 hr 9 } Patch to ity of patch 00:00: area(s) [place] 00 every 24 Medical (twenty-fo Branch ur) hours. Apply 21mg patch daily x 6 weeks, then apply 14mg patch daily x 2 weeks, then apply 7mg patch daily x 2 weeks. Stop smoking with onset of treatment. nicotine 14 2020- No [id number] 1{patch Apply 1 [facility] mg/24 hr 03-23 } Patch to ity of patch 00:00: 00:00 area(s) [place] 00 :00 every 24 Medical (twenty-fo Branch ur) hours. Apply 21mg patch daily x 6 weeks, then apply 14mg patch daily x 2 weeks, then apply 7mg patch daily x 2 weeks. Stop smoking with onset of treatment. nicotine 21 2020- No [id number] 1{patch Apply 1 [facility] mg/24 hr 03-23 } Patch to ity of patch 00:00: 00:00 area(s) [place] 00 :00 every 24 Medical (twenty-fo Branch ur) hours. Apply 21mg patch daily x 6 weeks, then apply 14mg patch daily x 2 weeks, then apply 7mg patch daily x 2 weeks. Stop smoking with onset of treatment. nicotine 7 2020- No [id number] 1{patch Apply 1 [facility] mg/24 hr 03-23 } Patch to ity of patch 00:00: 00:00 area(s) [place] 00 :00 every 24 Medical (twenty- Branch ur) hours. Apply 21mg patch daily x 6 weeks, then apply 14mg patch daily x 2 weeks, then apply 7mg patch daily x 2 weeks. Stop smoking with onset of treatment. nicotine 14 2020- No [id number] 1{patch Apply 1 [facility] mg/24 hr 03-2328 } Patch to ity of patch 00:00: 00:00 area(s) [place] 00 :00 every 24 Medical (twenty-fo Branch ur) hours. Apply 21mg patch daily x 6 weeks, then apply 14mg patch daily x 2 weeks, then apply 7mg patch daily x 2 weeks. Stop smoking with onset of treatment. nicotine 21 2020- No [id number] 1{patch Apply 1 [facility] mg/24 hr 03-23 } Patch to ity of patch 00:00: 00:00 area(s) [place] 00 :00 every 24 Medical (twenty-fo Branch ur) hours. Apply 21mg patch daily x 6 weeks, then apply 14mg patch daily x 2 weeks, then apply 7mg patch daily x 2 weeks. Stop smoking with onset of treatment. nicotine 7 2020- No [id number] 1{patch Apply 1 [facility] mg/24 hr 03-23 } Patch to ity of patch 00:00: 00:00 area(s) [place] 00 :00 every 24 Medical (twenty-fo Branch ur) hours. Apply 21mg patch daily x 6 weeks, then apply 14mg patch daily x 2 weeks, then apply 7mg patch daily x 2 weeks. Stop smoking with onset of treatment. sildenafiL 2019- No [id number] 25mg Take 1 [facility] (VIAGRA) 25 03-23 tablet by it y of mg tablet 00:00: 00:00 mouth as [place] 00 :00 needed Medical (Erectile Branch dysfunctio n). Take 1 Tab 30 mins to 1 Hr prior to sexual encounter. Max 2 Tabs within 24H. Do not mix with alcohol or other medication s. sildenafiL 2019- No [id number] 25mg Take 1 [facility] (VIAGRA) 25 03-23 tablet by it y of mg tablet 00:00: 00:00 mouth as [place] 00 :00 needed Medical (Erectile Branch dysfunctio n). Take 1 Tab 30 mins to 1 Hr prior to sexual encounter. Max 2 Tabs within 24H. Do not mix with alcohol or other medication s. sildenafiL 2019- No [id number] 25mg Take 1 [facility] (VIAGRA) 25 03-2324 tablet by it y of mg tablet 00:00: 00:00 mouth as [place] 00 :00 needed Medical (Erectile Branch dysfunctio n). Take 1 Tab 30 mins to 1 Hr prior to sexual encounter. Max 2 Tabs within 24H. Do not mix with alcohol or other medication s. nicotine 14 2019- No [id number] 1{patch Apply 1 [facility] mg/24 hr 03-23 } Patch to ity of patch 00:00: 00:00 area(s) [place] 00 :00 every 24 Medical (twenty-fo Branch ur) hours. nicotine 21 2019- 2020- No [id number] 1{patch Apply 1 [facility] mg/24 hr 03-23 } Patch to ity of patch 00:00: 00:00 [facility](s) [place] 00 :00 every 24 Medical (twenty-fo Branch ur) hours. nicotine 7 2019- 2020- No [id number] 1{patch Apply 1 [facility] mg/24 hr 03-23 } Patch to ity of patch 00:00: 00:00 [facility](s) [place] 00 :00 every 24 Medical (twenty-fo Branch ur) hours. nicotine 14 2019- 2020- No [id number] 1{patch Apply 1 [facility] mg/24 hr 03-23 } Patch to ity of patch 00:00: 00:00 [facility](s) [place] 00 :00 every 24 Medical (twenty-fo Branch ur) hours. nicotine 21 2019- 2020- No [id number] 1{patch Apply 1 [facility] mg/24 hr 03-23 } Patch to ity of patch 00:00: 00:00 [facility](s) [place] 00 :00 every 24 Medical (twenty-fo Branch ur) hours. nicotine 7 2019- 2020- No [id number] 1{patch Apply 1 [facility] mg/24 hr 03-23 } Patch to ity of patch 00:00: 00:00 [facility](s) [place] 00 :00 every 24 Medical (twenty-fo Branch ur) hours. HYDROcodone 2020-0 Yes .5{tbl} Take 0.5 [facility] -acetaminop 8-13 tablets by it y of hen 7.5-325 16:51: mouth [place] mg per 07 every 4 Medical tablet (four) Branch hours. citalopram 2020-0 Yes 20mg Take 20 mg U nivers 20 mg 8-13 by mouth ity of tablet 16:51: daily. Medical Branch ARIPiprazol 2020-0 Yes 10mg Take 10 mg [facility] e 10 mg 8-13 by mouth ity of tablet 16:51: daily. Medical Branch traZODone 2020-0 Yes 50mg Take 50 mg [place] 50 mg 8-13 by mouth ity of tablet 16:51: at [place] [address] bedtime. Medical Branch HYDROcodone 2020-0 Yes .5{tbl} Take 0.5 [facility] -acetaminop 8-13 tablets by it y of hen 7.5-325 16:51: mouth [place] mg per 07 every 4 Medical tablet (four) Branch hours. citalopram 2020-0 Yes 20mg Take 20 mg U nivers 20 mg 8-13 by mouth ity of tablet 16:51: daily. [place] [address] Medical Branch ARIPiprazol 2020-0 Yes 10mg Take 10 mg [facility] e 10 mg 8-13 by mouth ity of tablet 16:51: daily. [place] [address] Medical Branch traZODone 2020-0 Yes 50mg Take 50 mg Un [place] 50 mg 8-13 by mouth ity of tablet 16:51: at [place] [address] bedtime. Medical Branch HYDROcodone 2020-0 Yes .5{tbl} Take 0.5 [facility] -acetaminop 8-13 tablets by it y of hen 7.5-325 16:51: mouth [place] mg per 07 every 4 Medical tablet (four) Branch hours. citalopram 2020-0 Yes 20mg Take 20 mg U nivers 20 mg 8-13 by mouth ity of tablet 16:51: daily. [place] [address] Medical Branch ARIPiprazol 2020-0 Yes 10mg Take 10 mg [facility] e 10 mg 8-13 by mouth ity of tablet 16:51: daily. [place] [address] Medical Branch traZODone 2020-0 Yes 50mg Take 50 mg Un [place] 50 mg 8-13 by mouth ity of tablet 16:51: at [place] [address] bedtime. Medical Branch metoprolol 2020-0 Yes 25mg [...] tablet 43 Medical Branch hydroCHLORO 2020-0 Yes [id number] 25mg Take 1 [facility] thiazide 25 8-04 tablet by ity of mg tablet 00:00: mouth [place] 00 daily. Medical Branch lisinopril 2020-0 Yes [id number] 40mg Take 1 U nivers 40 mg 8-04 tablet by ity of tablet 00:00: mouth [place] 00 daily. Medical Branch hydroCHLORO 2020-0 Yes [id number] 25mg Take 1 [facility] thiazide 25 8-04 tablet by ity of mg tablet 00:00: mouth [place] 00 daily. Medical Branch lisinopril 2020-0 Yes [id number] 40mg Take 1 U nivers 40 mg 8-04 tablet by ity of tablet 00:00: mouth [place] 00 daily. Medical Branch hydroCHLORO 2020-0 Yes [id number] 25mg Take 1 [facility] thiazide 25 8-04 tablet by ity of mg tablet 00:00: mouth [place] 00 daily. Medical Branch lisinopril 2020-0 Yes [id number] 40mg Take 1 U nivers 40 mg 8-04 tablet by ity of tablet 00:00: mouth [place] 00 daily. Medical Branch hydroCHLORO 2020-0 Yes [id number] 25mg Take 1 [facility] thiazide 25 8-04 tablet by ity of mg tablet 00:00: mouth [place] 00 daily. Medical Branch lisinopril 2020-0 Yes [id number] 40mg Take 1 U nivers 40 mg 8-04 tablet by ity of tablet 00:00: mouth [place] 00 daily. Medical Branch hydroCHLORO 2020-0 Yes [id number] 25mg Take 1 [facility] thiazide 25 8-04 tablet by ity of mg tablet 00:00: mouth [place] 00 daily. Medical Branch lisinopril 2020-0 Yes [id number] 40mg Take 1 U nivers 40 mg 8-04 tablet by ity of tablet 00:00: mouth [place] 00 daily. Medical Branch hydroCHLORO 2020-0 Yes [id number] 25mg Take 1 [facility] thiazide 25 8-04 tablet by ity of mg tablet 00:00: mouth [place] 00 daily. Medical Branch lisinopril 2020-0 Yes [id number] 40mg Take 1 U nivers 40 mg 8-04 tablet by ity of tablet 00:00: mouth [place] 00 daily. Medical Branch hydroCHLORO 2020-0 Yes [id number] 25mg Take 1 [facility] thiazide 25 8-04 tablet by ity of mg tablet 00:00: mouth [place] 00 daily. [facility] Branch lisinopril 2020-0 Yes [id number] 40mg Take 1 U nivers 40 mg 8-04 tablet by ity of tablet 00:00: mouth [place] 00 daily. [facility] Branch hydroCHLORO 2020-0 Yes [id number] 25mg Take 1 [facility] thiazide 25 8-04 tablet by ity of mg tablet 00:00: mouth [place] 00 daily. [facility] Branch lisinopril 2020-0 Yes [id number] 40mg Take 1 U nivers 40 mg 8-04 tablet by ity of tablet 00:00: mouth [place] 00 daily. [facility] Branch hydroCHLORO 2020-0 Yes [id number] 25mg Take 1 [facility] thiazide 25 8-04 tablet by ity of mg tablet 00:00: mouth [place] 00 daily. [facility] Branch lisinopril 2020-0 Yes [id number] 40mg Take 1 U nivers 40 mg 8-04 tablet by ity of tablet 00:00: mouth [place] 00 daily. [facility] Branch hydroCHLORO 2020-0 Yes [id number] 25mg Take 1 [facility] thiazide 25 8-04 tablet by ity of mg tablet 00:00: mouth [place] 00 daily. [facility] Branch lisinopril 2020-0 Yes [id number] 40mg Take 1 U nivers 40 mg 8-04 tablet by ity of tablet 00:00: mouth [place] 00 daily. [facility] Branch hydroCHLORO 2020-0 Yes [id number] 25mg Take 1 [facility] thiazide 25 8-04 tablet by ity of mg tablet 00:00: mouth [place] 00 daily. [facility] Branch lisinopril 2020-0 Yes [id number] 40mg Take 1 U nivers 40 mg 8-04 tablet by ity of tablet 00:00: mouth [place] 00 daily. [facility] Branch hydroCHLORO 2020-0 Yes [id number] 25mg Take 1 [facility] thiazide 25 8-04 tablet by ity of mg tablet 00:00: mouth [place] 00 daily. [facility] lisinopril 2020-0 Yes [id number] 40mg Take 1 U nivers 40 mg 8-04 tablet by ity of tablet 00:00: mouth [place] 00 daily. [facility] Branch hydroCHLORO 2020-0 Yes [id number] 25mg Take 1 [facility] thiazide 25 8-04 tablet by ity of mg tablet 00:00: mouth [place] 00 daily. Medical Branch lisinopril 2020-0 Yes [id number] 40mg Take 1 U nivers 40 mg 8-04 tablet by ity of tablet 00:00: mouth [place] 00 daily. Medical Branch hydroCHLORO 2020-0 Yes [id number] 25mg Take 1 [facility] thiazide 25 8-04 tablet by ity of mg tablet 00:00: mouth [place] 00 daily. Medical Branch lisinopril 2020-0 Yes [id number] 40mg Take 1 U nivers 40 mg 8-04 tablet by ity of tablet 00:00: mouth [place] 00 daily. Medical Branch hydroCHLORO 2020-0 Yes [id number] 25mg Take 1 [facility] thiazide 25 8-04 tablet by ity of mg tablet 00:00: mouth [place] 00 daily. Medical Branch lisinopril 2020-0 Yes [id number] 40mg Take 1 U nivers 40 mg 8-04 tablet by ity of tablet 00:00: mouth [place] 00 daily. Medical Branch hydroCHLORO 2020-0 Yes [id number] 25mg Take 1 [facility] thiazide 25 8-04 tablet by ity of mg tablet 00:00: mouth [place] 00 daily. Medical Branch lisinopril 2020-0 Yes [id number] 40mg Take 1 U nivers 40 mg 8-04 tablet by ity of tablet 00:00: mouth [place] 00 daily. Medical Branch hydroCHLORO 2020-0 Yes [id number] 25mg Take 1 [facility] thiazide 25 8-04 tablet by ity of mg tablet 00:00: mouth [place] 00 daily. Medical Branch lisinopril 2020-0 Yes [id number] 40mg Take 1 U nivers 40 mg 8-04 tablet by ity of tablet 00:00: mouth [place] 00 daily. Medical Branch hydroCHLORO 2020-0 Yes [id number] 25mg Take 1 [facility] thiazide 25 8-04 tablet by ity of mg tablet 00:00: mouth [place] 00 daily. Medical Branch lisinopril 2020-0 Yes [id number] 40mg Take 1 U nivers 40 mg 8-04 tablet by ity of tablet 00:00: mouth [place] 00 daily. [facility] Branch lisinopril 2020-0 2021- No [id number] 40mg Take 1 [facility] 40 mg 8-04 04-28 tablet by ity of tablet 00:00: 00:00 mouth [place] 00 :00 daily. Medical Branch hydroCHLORO 2020-0 2020- No [id number] 25mg Take 1 [facility] thiazide 25 02-23 tablet by it y of mg tablet 00:00: 00:00 mouth [place] 00 :00 daily. Medical Branch lisinopril 2020- No [id number] 40mg Take 1 [facility] 40 mg 02-23 tablet by ity of tablet 00:00: 00:00 mouth [place] 00 :00 daily. Medical Branch hydroCHLORO 2020- No [id number] 25mg Take 1 [facility] thiazide 25 02-23 tablet by it y of mg tablet 00:00: 00:00 mouth [place] 00 :00 daily. Medical Branch PREDNISONE 2019- 2020- No 20mg Take 20 mg [facility] ORAL 7-30 07-30 by mouth ity of 21:18: 00:00 daily. [place] 54 :00 Indication Medical s: pt Branch takes this med at hs PREDNISONE 0 2020- No 20mg Take 20 mg [facility] ORAL 7-30 07-30 by mouth ity of 21:18: 00:00 daily. [place] 54 :00 Indication Medical s: pt Branch [...] tablet 50 Medical Branch meclizine 2020-0 Yes [id number] 12.5mg Take 1 [facility] 12.5 mg 7-30 tablet by ity of tablet 00:00: mouth (three) Medical times Branch daily as needed for Dizziness. meclizine 2020-0 Yes [id number] 12.5mg Take 1 [facility] 12.5 mg 7-30 tablet by ity of tablet 00:00: mouth (three) Medical times Branch daily as needed for Dizziness. meclizine 2020-0 Yes [id number] 12.5mg Take 1 [facility] 12.5 mg 7-30 tablet by ity of tablet 00:00: mouth (three) Medical times Branch daily as needed for Dizziness. meclizine 2020-0 Yes [id number] 12.5mg Take 1 [facility] 12.5 mg 7-30 tablet by ity of tablet 00:00: mouth (three) Medical times Branch daily as needed for Dizziness. meclizine 2020-0 Yes [id number] 12.5mg Take 1 [facility] 12.5 mg 7-30 tablet by ity of tablet 00:00: mouth (three) Medical times Branch daily as needed for Dizziness. meclizine 2020-0 Yes [id number] 12.5mg Take 1 [facility] 12.5 mg 7-30 tablet by ity of tablet 00:00: mouth (three) Medical times Branch daily as needed for Dizziness. meclizine 2020-0 Yes [id number] 12.5mg Take 1 [facility] 12.5 mg 7-30 tablet by ity of tablet 00:00: mouth (three) Medical times Branch daily as needed for Dizziness. meclizine 2020-0 Yes [id number] 12.5mg Take 1 [facility] 12.5 mg 7-30 tablet by ity of tablet 00:00: mouth (three) Medical times Branch daily as needed for Dizziness. meclizine 2020-0 Yes [id number] 12.5mg Take 1 [facility] 12.5 mg 7-30 tablet by ity of tablet 00:00: mouth (three) Medical times Branch daily as needed for Dizziness. meclizine 2020-0 Yes [id number] 12.5mg Take 1 [facility] 12.5 mg 7-30 tablet by ity of tablet 00:00: mouth (three) Medical times Branch daily as needed for Dizziness. meclizine 2020-0 Yes [id number] 12.5mg Take 1 [facility] 12.5 mg 7-30 tablet by ity of tablet 00:00: mouth (three) Medical times Branch daily as needed for Dizziness. meclizine 2020-0 Yes [id number] 12.5mg Take 1 [facility] 12.5 mg 7-30 tablet by ity of tablet 00:00: mouth (three) Medical times Branch daily as needed for Dizziness. meclizine 2020-0 Yes [id number] 12.5mg Take 1 [facility] 12.5 mg 7-30 tablet by ity of tablet 00:00: mouth (three) Medical times Branch daily as needed for Dizziness. meclizine 2020-0 Yes [id number] 12.5mg Take 1 [facility] 12.5 mg 7-30 tablet by ity of tablet 00:00: mouth (three) Medical times Branch daily as needed for Dizziness. meclizine 2020-0 Yes [id number] 12.5mg Take 1 [facility] 12.5 mg 7-30 tablet by ity of tablet 00:00: mouth (three) Medical times Branch daily as needed for Dizziness. meclizine 2020-0 Yes [id number] 12.5mg Take 1 [facility] 12.5 mg 7-30 tablet by ity of tablet 00:00: mouth (three) Medical times Branch daily as needed for Dizziness. meclizine 2020-0 Yes [id number] 12.5mg Take 1 [facility] 12.5 mg 7-30 tablet by ity of tablet 00:00: mouth (three) Medical times Branch daily as needed for Dizziness. meclizine 2020-0 Yes [id number] 12.5mg Take 1 [facility] 12.5 mg 7-30 tablet by ity of tablet 00:00: mouth (three) Medical times Branch daily as needed for Dizziness. meclizine 2020-0 Yes [id number] 12.5mg Take 1 [facility] 12.5 mg 7-30 tablet by ity of tablet 00:00: mouth (three) Medical times Branch daily as needed for Dizziness. meclizine 2020-0 Yes [id number] 12.5mg Take 1 [facility] 12.5 mg 7-30 tablet by ity of tablet 00:00: mouth (three) Medical times Branch daily as needed for Dizziness. meclizine 2020-0 Yes [id number] 12.5mg Take 1 [facility] 12.5 mg 7-30 tablet by ity of tablet 00:00: mouth (three) Medical times Branch daily as needed for Dizziness. meclizine 2020-0 Yes [id number] 12.5mg Take 1 [facility] 12.5 mg 7-30 tablet by ity of tablet 00:00: mouth (three) Medical times Branch daily as needed for Dizziness. meclizine 2020-0 Yes [id number] 12.5mg Take 1 [facility] 12.5 mg 7-30 tablet by ity of tablet 00:00: mouth (three) Medical times Branch daily as needed for Dizziness. meclizine 2020-0 Yes [id number] 12.5mg Take 1 [facility] 12.5 mg 7-30 tablet by ity of tablet 00:00: mouth (three) Medical times Branch daily as needed for Dizziness. meclizine 2020-0 Yes [id number] 12.5mg Take 1 [facility] 12.5 mg 7-30 tablet by ity of tablet 00:00: mouth (three) Medical times Branch daily as needed for Dizziness. meclizine 2020-0 Yes [id number] 12.5mg Take 1 [facility] 12.5 mg 7-30 tablet by ity of tablet 00:00: mouth 3 (three) Medical times Branch daily as needed for Dizziness. meclizine 2020-0 Yes [id number] 12.5mg Take 1 [facility] 12.5 mg 7-30 tablet by ity of tablet 00:00: mouth (three) Medical times Branch daily as needed for Dizziness. meclizine 2020-0 Yes [id number] 12.5mg Take 1 [facility] 12.5 mg 7-30 tablet by ity of tablet 00:00: mouth (three) Medical times Branch daily as needed for Dizziness. meclizine 2020-0 Yes [id number] 12.5mg Take 1 [facility] 12.5 mg 7-30 tablet by ity of tablet 00:00: mouth (three) Medical times Branch daily as needed for Dizziness. meclizine 2020-0 Yes [id number] 12.5mg Take 1 [facility] 12.5 mg 7-30 tablet by ity of tablet 00:00: mouth (three) Medical times Branch daily as needed for Dizziness. meclizine 2020-0 Yes [id number] 12.5mg Take 1 [facility] 12.5 mg 7-30 tablet by ity of tablet 00:00: mouth (three) Medical times Branch daily as needed for Dizziness. meclizine 2020-0 Yes [id number] 12.5mg Take 1 [facility] 12.5 mg 7-30 tablet by ity of tablet 00:00: mouth (three) Medical times Branch daily as needed for Dizziness. meclizine 2020-0 Yes [id number] 12.5mg Take 1 [facility] 12.5 mg 7-30 tablet by ity of tablet 00:00: mouth (three) Medical times Branch daily as needed for Dizziness. meclizine 2020-0 Yes [id number] 12.5mg Take 1 [facility] 12.5 mg 7-30 tablet by ity of tablet 00:00: mouth (three) Medical times Branch daily as needed for Dizziness. meclizine 2020-0 Yes [id number] 12.5mg Take 1 [facility] 12.5 mg 7-30 tablet by ity of tablet 00:00: mouth (three) Medical times Branch daily as needed for Dizziness. meclizine 2020-0 Yes [id number] 12.5mg Take 1 [facility] 12.5 mg 7-30 tablet by ity of tablet 00:00: mouth (three) Medical times Branch daily as needed for Dizziness. meclizine 2020-0 Yes [id number] 12.5mg Take 1 [facility] 12.5 mg 7-30 tablet by ity of tablet 00:00: mouth (three) Medical times Branch daily as needed for Dizziness. meclizine 2020-0 Yes [id number] 12.5mg Take 1 [facility] 12.5 mg 7-30 tablet by ity of tablet 00:00: mouth (three) Medical times Branch daily as needed for Dizziness. meclizine 2020-0 Yes [id number] 12.5mg Take 1 [facility] 12.5 mg 7-30 tablet by ity of tablet 00:00: mouth (three) Medical times Branch daily as needed for Dizziness. meclizine 2020-0 Yes [id number] 12.5mg Take 1 [facility] 12.5 mg 7-30 tablet by ity of tablet 00:00: mouth (three) Medical times Branch daily as needed for Dizziness. meclizine 2020-0 Yes [id number] 12.5mg Take 1 [facility] 12.5 mg 7-30 tablet by ity of tablet 00:00: mouth (three) Medical times Branch daily as needed for Dizziness. meclizine 2020-0 Yes [id number] 12.5mg Take 1 [facility] 12.5 mg 7-30 tablet by ity of tablet 00:00: mouth (three) Medical times Branch daily as needed for Dizziness. meclizine 2020-0 Yes [id number] 12.5mg Take 1 [facility] 12.5 mg 7-30 tablet by ity of tablet 00:00: mouth (three) Medical times Branch daily as needed for Dizziness. meclizine 2020-0 Yes [id number] 12.5mg Take 1 [facility] 12.5 mg 7-30 tablet by ity of tablet 00:00: mouth (three) Medical times Branch daily as needed for Dizziness. meclizine 2020-0 Yes [id number] 12.5mg Take 1 [facility] 12.5 mg 7-30 tablet by ity of tablet 00:00: mouth 3 (three) Medical times Branch daily as needed for Dizziness. meclizine 2020-0 Yes [id number] 12.5mg Take 1 [facility] 12.5 mg 7-30 tablet by ity of tablet 00:00: mouth 3 [place] 00 (three) Medical times Branch daily as needed for Dizziness. meclizine 2020-0 Yes [id number] 12.5mg Take 1 [facility] 12.5 mg 7-30 tablet by ity of tablet 00:00: mouth 3 [place] 00 (three) Medical times Branch daily as needed for Dizziness. meclizine 2019-0 3- No [id number] 12.5mg Take 1 [facility] 12.5 mg 7-30 10-08 tablet by ity of tablet 00:00: 00:00 mouth 3 [place] 00 :00 (three) Medical times Branch daily as needed for Dizziness. meclizine 2019-0 2022- No [id number] 12.5mg Take 1 Univers 12.5 mg 7-30 10-08 tablet by ity of tablet 00:00: 00:00 mouth 3 [place] 00 :00 (three) Medical times Branch daily as needed for Dizziness. esomeprazol 0 2020- No 40mg Take 40 mg Univers e magnesium 7-24 07-24 by mouth. it y of (NEXIUM 20:59: 00:00 [place] 24HR) 20 mg 17 :00 Medical [facility] Branch OMEPRAZOLE 2020-0 Yes [id number] TAKE 1 Univers 40 mg 7-24 CAPSULE BY ity of capsule 00:00: MOUTH [place] 00 EVERY DAY Medical Branch OMEPRAZOLE 2020-0 Yes [id number] TAKE 1 Univers 40 mg 7-24 CAPSULE BY ity of capsule 00:00: MOUTH [place] 00 EVERY DAY Medical Branch OMEPRAZOLE 2020-0 Yes [id number] TAKE 1 Univers 40 mg 7-24 CAPSULE BY ity of capsule 00:00: MOUTH [place] 00 EVERY DAY Medical Branch OMEPRAZOLE 2020-0 Yes [id number] TAKE 1 Univers 40 mg 7-24 CAPSULE BY ity of capsule 00:00: MOUTH [place] 00 EVERY DAY Medical Branch OMEPRAZOLE 2020-0 Yes [id number] TAKE 1 Univers 40 mg 7-24 CAPSULE BY ity of capsule 00:00: MOUTH [place] 00 EVERY DAY Medical Branch OMEPRAZOLE 2020-0 Yes [id number] TAKE 1 Univers 40 mg 7-24 CAPSULE BY ity of capsule 00:00: MOUTH [place] 00 EVERY DAY Medical Branch OMEPRAZOLE 2020-0 Yes [id number] TAKE 1 Univers 40 mg 7-24 CAPSULE BY ity of capsule 00:00: MOUTH [place] 00 EVERY DAY Medical Branch OMEPRAZOLE 2020-0 Yes [id number] TAKE 1 Univers 40 mg 7-24 CAPSULE BY ity of capsule 00:00: MOUTH [place] 00 EVERY DAY Medical Branch OMEPRAZOLE 2020-0 Yes [id number] TAKE 1 Univers 40 mg 7-24 CAPSULE BY ity of capsule 00:00: MOUTH [place] 00 EVERY DAY Medical Branch OMEPRAZOLE 2020-0 Yes [id number] TAKE 1 Univers 40 mg 7-24 CAPSULE BY ity of capsule 00:00: MOUTH [place] 00 EVERY DAY Medical Branch OMEPRAZOLE 2020-0 Yes [id number] TAKE 1 Univers 40 mg 7-24 CAPSULE BY ity of capsule 00:00: MOUTH [place] 00 EVERY DAY Medical Branch OMEPRAZOLE 2020-0 Yes [id number] TAKE 1 Univers 40 mg 7-24 CAPSULE BY ity of capsule 00:00: MOUTH [place] 00 EVERY DAY Medical Branch OMEPRAZOLE 2020-0 Yes [id number] TAKE 1 [facility] 40 mg 7-24 CAPSULE BY ity of capsule 00:00: MOUTH [place] 00 EVERY DAY Medical Branch OMEPRAZOLE 2020-0 Yes [id number] TAKE 1 [facility] 40 mg 7-24 CAPSULE BY ity of capsule 00:00: MOUTH [place] 00 EVERY DAY Medical Branch OMEPRAZOLE 2020-0 Yes [id number] TAKE 1 [facility] 40 mg 7-24 CAPSULE BY ity of capsule 00:00: MOUTH [place] 00 EVERY DAY Medical Branch OMEPRAZOLE 2020-0 Yes [id number] TAKE 1 [facility] 40 mg 7-24 CAPSULE BY ity of capsule 00:00: MOUTH [place] 00 EVERY DAY Medical Branch OMEPRAZOLE 2020-0 Yes [id number] TAKE 1 [facility] 40 mg 7-24 CAPSULE BY ity of capsule 00:00: MOUTH [place] 00 EVERY DAY Medical Branch OMEPRAZOLE 2020-0 2020- No [id number] TAKE 1 Univers 40 mg 7-24 12-10 CAPSULE BY ity of capsule 00:00: 00:00 MOUTH [place] 00 :00 EVERY DAY Medical Branch lisinopril- 2020-0 2020- No 2{tbl} Take 2 U nivers hydrochloro 5-18 05-18 tablets by i ty of thiazide 14:51: 00:00 mouth [place] 20-12.5 mg 59 :00 every Medical per tablet evening. Branc h esomeprazol 2019-0 Yes 40mg Take 40 mg Univers e [...] 14:45: [place] 24HR) 20 mg 29 Medical [facility] Branch HYDROcodone 2020-0 Yes .5{tbl} Take 0.5 Univers -acetaminop 5-18 tablets by it y of hen 7.5-325 14:45: mouth [place] mg per 29 every 4 Medical tablet (four) Branch hours. esomeprazol 2020-0 Yes 40mg Take 40 mg Univers e magnesium 5-18 by mouth. ity of (NEXIUM 14:45: [place] 24HR) 20 mg 29 Medical [facility] Branch HYDROcodone 2020-0 Yes .5{tbl} Take 0.5 [...] tablet (four) Branch hours. lisinopril- 2020-0 Yes [id number] 2{tbl} Take 2 Univers hydrochloro 5-18 tablets by it y of thiazide 00:00: mouth [place] 20-12.5 mg 00 every Medical per tablet evening. Bran h omeprazole 2020-0 Yes [id number] 40mg Take 1 Univers 40 mg 5-18 capsule by ity of capsule 00:00: mouth [place] 00 daily. Medical Branch lisinopril- 2020-0 Yes [id number] 2{tbl} Take 2 Univers hydrochloro 5-18 tablets by it y of thiazide 00:00: mouth [place] 20-12.5 mg 00 every Medical per tablet evening. Bran h omeprazole 2019-0 Yes [id number] 40mg Take 1 Univers 40 mg 5-18 capsule by ity of capsule 00:00: mouth [place] 00 daily. Medical Branch lisinopril- 2019-0 Yes [id number] 2{tbl} Take 2 Univers hydrochloro 5-18 tablets by it y of thiazide 00:00: mouth [place] 20-12.5 mg 00 every Medical per tablet evening. [facility] omeprazole 2019-0 Yes [id number] 40mg Take 1 Univers 40 mg 5-18 capsule by ity of capsule 00:00: mouth [place] 00 daily. [facility] Branch lisinopril- 0 Yes [id number] 2{tbl} Take 2 Univers hydrochloro 5-18 tablets by it y of thiazide 00:00: mouth [place] 20-12.5 mg 00 every Medical per tablet evening. [facility] lisinopril- Yes [id number] 2{tbl} Take 2 Univers hydrochloro 5-18 tablets by it y of thiazide 00:00: mouth [place] 20-12.5 mg 00 every Medical per tablet evening. [facility] lisinopril- 0 Yes [id number] 2{tbl} Take 2 Univers hydrochloro 5-18 tablets by it y of thiazide 00:00: mouth [place] 20-12.5 mg 00 every Medical per tablet evening. [facility] lisinopril- 0 Yes [id number] 2{tbl} Take 2 Univers hydrochloro 5-18 tablets by it y of thiazide 00:00: mouth [place] 20-12.5 mg 00 every Medical per tablet evening. [facility] lisinopril- 0 2020- No [id number] 2{tbl} Take 2 Univers hydrochloro 5-18 08-04 tablets by i ty of thiazide 00:00: 00:00 mouth [place] 20-12.5 mg 00 :00 every Medical per tablet evening. [facility] omeprazole 2020- No [id number] 40mg Take 1 Univers 40 mg 5-18 07-24 capsule by ity of capsule 00:00: 00:00 mouth [place] 00 :00 daily. Medical Branch HYDROcodone 2020- No 1{tbl} Take 1 U nivers -acetaminop 4-23 04-23 tablet by it y of hen 7.5-325 20:49: 00:00 mouth as [place] mg per 20 :00 needed for Medical tablet Pain. Branch lisinopril- 2020-0 Yes 2{tbl} Take 2 Un [place] hydrochloro 4-23 tablets by it y of thiazide 20:31: mouth [place] 20-12.5 mg 13 every Medical per tablet evening. Branc h lisinopril- 2020-0 Yes 2{tbl} Take 2 Un [place] hydrochloro 4-23 tablets by it y of thiazide 20:31: mouth [place] 20-12.5 mg 13 every Medical per tablet evening. Branc h lisinopril- 2020-0 Yes 2{tbl} Take 2 Un [place] hydrochloro 4-23 tablets by it y of thiazide 20:31: mouth [place] 20-12.5 mg 13 every Medical per tablet evening. Branc h lisinopril- 2020-0 Yes 2{tbl} Take 2 Un [place] hydrochloro 4-23 tablets by it y of thiazide 20:31: mouth [place] 20-12.5 mg 13 every Medical per tablet evening. Branc h Bismuth 2020-0 Yes [id number] 262mg Take 1 Uni vers Subsalicyla 4-23 tablet by ity of te 00:00: mouth 4 [place] (PEPTO-BISM 00 (four) Medica l OL) 262 mg times Branch tablet daily as needed (diarrhea) . acetaminoph 2020-0 Yes [id number] 650mg Take 1 Univers en 650 mg 4-23 tablet by ity o f CR tablet 00:00: mouth [place] 00 every 8 Medical (eight) Branch hours as needed for Pain or Fever. amLODIPine 2020-0 Yes [id number] 10mg Take 1 Univers 10 mg 4-23 tablet by ity of tablet 00:00: mouth [place] 00 daily. Medical Branch bromphenira 2020-0 Yes [id number] 10mL Take 10 mL Univers mine-pseudo 4-23 by mouth 4 it y of ephedrine-D 00:00: (four) [place] (BROMFED 00 times Medical DM) 2-30-10 daily as Bran ch mg/5 mL needed for syrup Cough. Bismuth 2020-0 Yes [id number] 262mg Take 1 Uni vers Subsalicyla 4-23 tablet by ity of te 00:00: mouth 4 [place] (PEPTO-BISM 00 (four) Medica l OL) 262 mg times Branch tablet daily as needed (diarrhea) . acetaminoph 2020-0 Yes [id number] 650mg Take 1 Univers en 650 mg 4-23 tablet by ity o f CR tablet 00:00: mouth [place] 00 every 8 Medical (eight) Branch hours as needed for Pain or Fever. amLODIPine 2020-0 Yes [id number] 10mg Take 1 Univers 10 mg 4-23 tablet by ity of tablet 00:00: mouth [place] 00 daily. Medical Branch bromphenira 2020-0 Yes [id number] 10mL Take 10 mL Univers mine-pseudo 4-23 by mouth 4 it y of ephedrine-D 00:00: (four) [place] M (BROMFED 00 times Medical DM) 2-30-10 daily as Bran ch mg/5 mL needed for syrup Cough. Bismuth 2020-0 Yes [id number] 262mg Take 1 Uni vers Subsalicyla 4-23 tablet by ity of te 00:00: mouth 4 [place] (PEPTO-BISM 00 (four) Medica l OL) 262 mg times Branch tablet daily as needed (diarrhea) . acetaminoph 2020-0 Yes [id number] 650mg Take 1 Univers en 650 mg 4-23 tablet by ity o f CR tablet 00:00: mouth [place] 00 every 8 Medical (eight) Branch hours as needed for Pain or Fever. amLODIPine 2020-0 Yes [id number] 10mg Take 1 Univers 10 mg 4-23 tablet by ity of tablet 00:00: mouth [place] 00 daily. Medical Branch bromphenira 2020-0 Yes [id number] 10mL Take 10 mL Univers mine-pseudo 4-23 by mouth 4 it y of ephedrine-D 00:00: (four) [place] M (BROMFED 00 times Medical DM) 2-30-10 daily as Bran ch mg/5 mL needed for syrup Cough. Bismuth 2020-0 Yes [id number] 262mg Take 1 Uni vers Subsalicyla 4-23 tablet by ity of te 00:00: mouth 4 [place] (PEPTO-BISM 00 (four) Medica l OL) 262 mg times Branch tablet daily as needed (diarrhea) . acetaminoph 2020-0 Yes [id number] 650mg Take 1 Univers en 650 mg 4-23 tablet by ity o f CR tablet 00:00: mouth [place] 00 every 8 Medical (eight) Branch hours as needed for Pain or Fever. amLODIPine 2020-0 Yes [id number] 10mg Take 1 Univers 10 mg 4-23 tablet by ity of tablet 00:00: mouth [place] 00 daily. Medical Branch bromphenira 2020-0 Yes [id number] 10mL Take 10 mL Univers mine-pseudo 4-23 by mouth 4 it y of ephedrine-D 00:00: (four) [place] M (BROMFED 00 times Medical DM) 2-30-10 daily as Bran ch mg/5 mL needed for syrup Cough. Bismuth 2020-0 Yes [id number] 262mg Take 1 Uni vers Subsalicyla 4-23 tablet by ity of te 00:00: mouth 4 [place] (PEPTO-BISM 00 (four) Medica l OL) 262 mg times Branch tablet daily as needed (diarrhea) . acetaminoph 2020-0 Yes [id number] 650mg Take 1 Univers en 650 mg 4-23 tablet by ity o f CR tablet 00:00: mouth [place] 00 every 8 Medical (eight) Branch hours as needed for Pain or Fever. amLODIPine 2020-0 Yes [id number] 10mg Take 1 Univers 10 mg 4-23 tablet by ity of tablet 00:00: mouth [place] 00 daily. Medical Branch bromphenira 2020-0 Yes [id number] 10mL Take 10 mL Univers mine-pseudo 4-23 by mouth 4 it y of ephedrine-D 00:00: (four) [place] M (BROMFED 00 times Medical DM) 2-30-10 daily as Bran ch mg/5 mL needed for syrup Cough. Bismuth 2020-0 Yes [id number] 262mg Take 1 Uni vers Subsalicyla 4-23 tablet by ity of te 00:00: mouth 4 [place] (PEPTO-BISM 00 (four) Medica l OL) 262 mg times Branch tablet daily as needed (diarrhea) . acetaminoph 2020-0 Yes [id number] 650mg Take 1 Univers en 650 mg 4-23 tablet by ity o f CR tablet 00:00: mouth [place] 00 every 8 Medical (eight) Branch hours as needed for Pain or Fever. amLODIPine 2020-0 Yes [id number] 10mg Take 1 Univers 10 mg 4-23 tablet by ity of tablet 00:00: mouth [place] 00 daily. Medical Branch bromphenira 2020-0 Yes [id number] 10mL Take 10 mL Univers mine-pseudo 4-23 by mouth 4 it y of ephedrine-D 00:00: (four) [place] M (BROMFED 00 times Medical DM) 2-30-10 daily as Bran ch mg/5 mL needed for syrup Cough. Bismuth 2020-0 Yes [id number] 262mg Take 1 Uni vers Subsalicyla 4-23 tablet by ity of te 00:00: mouth 4 [place] (PEPTO-BISM 00 (four) Medica l OL) 262 mg times Branch tablet daily as needed (diarrhea) . acetaminoph 2020-0 Yes [id number] 650mg Take 1 Univers en 650 mg 4-23 tablet by ity o f CR tablet 00:00: mouth [place] 00 every 8 Medical (eight) Branch hours as needed for Pain or Fever. amLODIPine 2020-0 Yes [id number] 10mg Take 1 Univers 10 mg 4-23 tablet by ity of tablet 00:00: mouth [place] 00 daily. Medical Branch bromphenira 2020-0 Yes [id number] 10mL Take 10 mL Univers mine-pseudo 4-23 by mouth 4 it y of ephedrine-D 00:00: (four) [place] M (BROMFED 00 times Medical DM) 2-30-10 daily as Bran ch mg/5 mL needed for syrup Cough. Bismuth 2020-0 Yes [id number] 262mg Take 1 Uni vers Subsalicyla 4-23 tablet by ity of te 00:00: mouth 4 [place] (PEPTO-BISM 00 (four) Medica l OL) 262 mg times Branch tablet daily as needed (diarrhea) . acetaminoph 2020-0 Yes [id number] 650mg Take 1 Univers en 650 mg 4-23 tablet by ity o f CR tablet 00:00: mouth [place] 00 every 8 Medical (eight) Branch hours as needed for Pain or Fever. amLODIPine 2020-0 Yes [id number] 10mg Take 1 Univers 10 mg 4-23 tablet by ity of tablet 00:00: mouth [place] 00 daily. Medical Branch bromphenira 2020-0 Yes [id number] 10mL Take 10 mL Univers mine-pseudo 4-23 by mouth 4 it y of ephedrine-D 00:00: (four) [place] M (BROMFED 00 times Medical DM) 2-30-10 daily as Bran ch mg/5 mL needed for syrup Cough. Bismuth 2020-0 Yes [id number] 262mg Take 1 Uni vers Subsalicyla 4-23 tablet by ity of te 00:00: mouth 4 [place] (PEPTO-BISM 00 (four) Medica l OL) 262 mg times Branch tablet daily as needed (diarrhea) . acetaminoph 2020-0 Yes [id number] 650mg Take 1 Univers en 650 mg 4-23 tablet by ity o f CR tablet 00:00: mouth [place] 00 every 8 Medical (eight) Branch hours as needed for Pain or Fever. amLODIPine 2020-0 Yes [id number] 10mg Take 1 Univers 10 mg 4-23 tablet by ity of tablet 00:00: mouth [place] 00 daily. Medical Branch acetaminoph 2020-0 Yes [id number] 650mg Take 1 Univers en 650 mg 4-23 tablet by ity o f CR tablet 00:00: mouth [place] 00 every 8 Medical (eight) Branch hours as needed for Pain or Fever. amLODIPine 2020-0 Yes [id number] 10mg Take 1 Univers 10 mg 4-23 tablet by ity of tablet 00:00: mouth [place] 00 daily. Medical Branch acetaminoph 2020-0 Yes [id number] 650mg Take 1 Univers en 650 mg 4-23 tablet by ity o f CR tablet 00:00: mouth [place] 00 every 8 Medical (eight) Branch hours as needed for Pain or Fever. amLODIPine 2020-0 Yes [id number] 10mg Take 1 Univers 10 mg 4-23 tablet by ity of tablet 00:00: mouth [place] 00 daily. Medical Branch acetaminoph 2020-0 Yes [id number] 650mg Take 1 Univers en 650 mg 4-23 tablet by ity o f CR tablet 00:00: mouth [place] 00 every 8 Medical (eight) Branch hours as needed for Pain or Fever. amLODIPine 2020-0 Yes [id number] 10mg Take 1 Univers 10 mg 4-23 tablet by ity of tablet 00:00: mouth [place] 00 daily. Medical Branch acetaminoph 2020-0 Yes [id number] 650mg Take 1 Univers en 650 mg 4-23 tablet by ity o f CR tablet 00:00: mouth [place] 00 every 8 Medical (eight) Branch hours as needed for Pain or Fever. amLODIPine 2020-0 Yes [id number] 10mg Take 1 Univers 10 mg 4-23 tablet by ity of tablet 00:00: mouth [place] 00 daily. Medical Branch amLODIPine 2020-0 Yes [id number] 10mg Take 1 Univers 10 mg 4-23 tablet by ity of tablet 00:00: mouth [place] 00 daily. Medical Branch amLODIPine 2020-0 Yes [id number] 10mg Take 1 Univers 10 mg 4-23 tablet by ity of tablet 00:00: mouth [place] 00 daily. Medical Branch amLODIPine 2020-0 Yes [id number] 10mg Take 1 Univers 10 mg 4-23 tablet by ity of tablet 00:00: mouth [place] 00 daily. Medical Branch amLODIPine 2020-0 Yes [id number] 10mg Take 1 Univers 10 mg 4-23 tablet by ity of tablet 00:00: mouth [place] 00 daily. Medical Branch amLODIPine 2020-0 Yes [id number] 10mg Take 1 Univers 10 mg 4-23 tablet by ity of tablet 00:00: mouth [place] 00 daily. Medical Branch amLODIPine 2020-0 Yes [id number] 10mg Take 1 Univers 10 mg 4-23 tablet by ity of tablet 00:00: mouth [place] 00 daily. Medical Branch amLODIPine 2020-0 Yes [id number] 10mg Take 1 Univers 10 mg 4-23 tablet by ity of tablet 00:00: mouth [place] 00 daily. Medical Branch amLODIPine 2020-0 Yes [id number] 10mg Take 1 Univers 10 mg 4-23 tablet by ity of tablet 00:00: mouth [place] 00 daily. Medical Branch amLODIPine 2020-0 Yes [id number] 10mg Take 1 Univers 10 mg 4-23 tablet by ity of tablet 00:00: mouth [place] 00 daily. Medical Branch amLODIPine 2020-0 Yes [id number] 10mg Take 1 Univers 10 mg 4-23 tablet by ity of tablet 00:00: mouth [place] 00 daily. Medical Branch bromphenira 2020-0 Yes [id number] 10mL Take 10 mL Univers mine-pseudo 4-23 by mouth 4 it y of ephedrine-D 00:00: (four) [place] M (BROMFED 00 times Medical DM) 2-30-10 daily as Bran ch mg/5 mL needed for syrup Cough. amLODIPine 2020-0 2020- No [id number] 10mg Take 1 Univers 10 mg 4-23 10-13 tablet by ity of tablet 00:00: 00:00 mouth [place] 00 :00 daily. Medical Branch acetaminoph 2019- 2020- No [id number] 650mg Take 1 Univers en 650 mg 11-12 tablet by ity of CR tablet 00:00: 00:00 mouth [place] 00 :00 every 8 Medical (eight) Branch hours as needed for Pain or Fever. acetaminoph 2019-2019- No [id number] 650mg Take 1 Univers en 650 mg 11-12 tablet by ity of CR tablet 00:00: 00:00 mouth [place] 00 :00 every 8 Medical (eight) Branch hours as needed for Pain or Fever. bromphenira 2019- 2020- No [id number] 10mL Take 10 mL Univers mine-pseudo 11-12 by mouth 4 i ty of ephedrine-D 00:00: 00:00 (four) [place] as M (BROMFED 00 :00 times Medical DM) 2-30-10 daily as Bran ch mg/5 mL needed for syrup Cough. Bismuth 2019- No [id number] 262mg Take 1 Un [place] Subsalicyla 11-1230 tablet by it y of te 00:00: 00:00 mouth 4 [place] (PEPTO-BISM 00 :00 (four) Medica l OL) 262 mg times Branch tablet daily as needed (diarrhea) . bromphenira 2019- No [id number] 10mL Take 10 mL Univers mine-pseudo 11-1230 by mouth 4 i ty of ephedrine-D 00:00: 00:00 (four) [place] as M (BROMFED 00 :00 times Medical DM) 2-30-10 daily as Bran ch mg/5 mL needed for syrup Cough. Bismuth 2019- 2020- No [id number] 262mg Take 1 Un [place] Subsalicyla 11-12-30 tablet by it y of te 00:00: 00:00 mouth 4 [place] (PEPTO-BISM 00 :00 (four) Medica l OL) 262 mg times Branch tablet daily as needed (diarrhea) . metoprolol Yes 25mg Take 25 mg U nivers succinate 3-26 by mouth ity of XL 25 mg 24 16:07: daily. [place] hr tablet 35 Medical Branch PREDNISONE Yes 20mg Take 20 mg U nivers ORAL 3-26 by mouth ity of 16:07: daily. [place] [address] Indication Medical s: pt Branch takes this med at metoprolol 2018-0 Yes 25mg Take 25 mg U nivers succinate 3-26 by mouth ity of XL 25 mg 24 16:07: daily. [place] hr tablet 35 Medical Branch PREDNISONE [id number] Yes 20mg Take 20 mg U nivers ORAL 3-26 by mouth ity of 16:07: daily. [place] [address] Indication Medical s: pt Branch takes this med at metoprolol 2018-0 Yes 25mg Take 25 mg U nivers succinate 3-26 by mouth ity of XL 25 mg 24 16:07: daily. [place] hr tablet 35 Medical Branch PREDNISONE [id number] Yes 20mg Take 20 mg U nivers ORAL 3-26 by mouth ity of 16:07: daily. [place] [address] Indication Medical s: pt Branch takes this med at metoprolol 0 Yes 25mg Take 25 mg U nivers succinate 3-26 by mouth ity of XL 25 mg 24 16:07: daily. [place] hr tablet Medical Branch PREDNISONE 0 Yes 20mg Take 20 mg U nivers ORAL 3-26 by mouth ity of 16:07: daily. [place] [address] Indication Medical s: pt Branch takes this med at metoprolol 2017-0 Yes 25mg Take 25 mg U nivers succinate 3-26 by mouth ity of XL 25 mg 24 16:07: daily. [place] hr tablet Medical Branch PREDNISONE 0 Yes 20mg Take 20 mg U nivers ORAL 3-26 by mouth ity of 16:07: daily. [place] [address] Indication Medical s: pt Branch takes this med at metoprolol 2017-0 Yes 25mg Take 25 mg U nivers succinate 3-26 by mouth ity of XL 25 mg 24 16:07: daily. [place] hr tablet 35 Medical Branch PREDNISONE 2018-0 Yes 20mg Take 20 mg U nivers ORAL 3-26 by mouth ity of 16:07: daily. [place] [address] Indication Medical s: pt Branch takes this med at metoprolol 2018-0 Yes 25mg Take 25 mg U nivers succinate 3-26 by mouth ity of XL 25 mg 24 16:07: daily. [place] hr tablet 35 Medical Branch PREDNISONE 2018-0 Yes 20mg Take 20 mg U nivers ORAL 3-26 by mouth ity of 16:07: daily. [place] [address] Indication Medical s: pt Branch takes this med at metoprolol 0 Yes 25mg Take 25 mg U nivers succinate 3-26 by mouth ity of XL 25 mg 24 16:07: daily. [place] hr tablet 35 Medical [place] PREDNISONE 2017-0 Yes 20mg Take 20 mg U nivers ORAL 3-26 by mouth ity of 16:07: daily. [place] [address] Indication Medical s: pt Branch takes this med at metoprolol 0 Yes 25mg Take 25 mg U nivers succinate 3-26 by mouth ity of XL 25 mg 24 16:07: daily. [place] hr tablet 35 Medical [place] PREDNISONE 0 Yes 20mg Take 20 mg U nivers ORAL 3-26 by mouth ity of 16:07: daily. [place] [address] Indication Medical s: pt Branch takes this med at Vital Signs Vital Name Observation Time Observation Value Comments Source Systolic blood 2023-05-02 20:22:00 144 mm[Hg] [facility] Diastolic blood 2023-05-02 20:22:00 92 mm[Hg] Unive rsity [facility] Heart rate 2023-05-02 20:22:00 63 /min [facility] Body temperature 2023-05-02 20:22:00 35.94 [facility] 2023-05-02 20:22:00 20 /min [facility] Oxygen saturation in 2023-05-02 20:22:00 95 /min [facility] Arterial blood by [facility] Pulse oximetry Branch Body height 2023-04-29 16:00:00 180.3 cm [facility] Body weight 2023-04-29 16:00:00 96 kg [facility] BMI 2023-04-29 16:00:00 29.52 kg/m2 [facility] Systolic blood 2023-04-29 23:32:23 151 mm[Hg] Univer sity of [facility] Diastolic blood 2023-04-29 23:32:23 95 mm[Hg] Unive rsity of [facility] Respiratory rate 2023-04-29 23:32:23 17 /min Univ ersity of [place] [facility] Oxygen saturation in 2023-04-29 23:32:23 87 /min [facility] of Arterial blood by [place] [facility] Pulse oximetry Branch Heart rate 2023-04-29 21:16:00 97 /min [facility] [place] [facility] Body temperature 2023-04-29 21:00:00 36.44 [place] [facility] [place] [facility] Body height 2023-04-29 16:00:00 180.3 cm [facility] [place] [facility] Body weight 2023-04-29 16:00:00 96 kg [facility] [place] [facility] BMI 2023-04-29 16:00:00 29.52 kg/m2 [facility] [place] [facility] Systolic blood 2020-11-29 13:11:00 160 mm[Hg] Univer sity of pressure [place] [facility] Diastolic blood 2020-11-29 13:11:00 95 mm[Hg] Unive rsity of pressure [place] [facility] Heart rate 2020-11-29 13:11:00 81 /min [facility] [place] [facility] Oxygen saturation in 2020-11-29 13:11:00 98 /min [facility] of Arterial blood by [place] [facility] Pulse oximetry Branch Respiratory rate 2020-11-29 13:07:00 18 /min Univ ers[facility] [place] [facility] Body temperature 2020-11-29 12:41:00 37.22 [place] [facility] [place] [facility] Body height 2020-11-26 13:45:00 180.3 cm [facility] [place] [facility] Body weight 2020-11-26 13:45:00 94.802 kg [facility] [place] [facility] BMI 2020-11-26 13:45:00 29.15 kg/m2 [facility] [place] [facility] Systolic blood 2020-11-29 13:11:00 160 mm[Hg] Univer sity of [facility] [place] [facility] Diastolic blood 2020-11-29 13:11:00 95 mm[Hg] Unive rsity of pressure [place] [facility] Heart rate 2020-11-29 13:11:00 81 /min [facility] [place] [facility] Oxygen saturation in 2020-11-29 13:11:00 98 /min University of Arterial blood by [place] [facility] ranjit Pulse oximetry Branch Respiratory rate 2020-11-29 13:07:00 18 /min Univ ers[facility] [place] [facility] Body temperature 2020-11-29 12:41:00 37.22 [place] [facility] [place] [facility] Body height 2020-11-26 13:45:00 180.3 cm [facility] [place] [facility] Body weight 2020-11-26 13:45:00 94.802 kg [facility]i ty of [facility] Branch BMI 2020-11-26 13:45:00 29.15 kg/m2 Universi ty [facility] Branch Systolic blood 2020-11-17 20:21:00 150 mm[Hg] Univer sity of [facility] [place] [facility] Diastolic blood 2020-11-17 20:21:00 99 mm[Hg] Unive rsity of [facility] Branch Heart rate 2020-11-17 20:20:00 92 /min Universi ty of [place] [facility] Body temperature 2020-11-17 20:20:00 36.39 [place] [facility] ersity of [facility] Branch Respiratory rate 2020-11-17 20:20:00 18 /min Univ ersity of [facility] Branch Body height 2020-11-17 20:20:00 180.3 cm [facility] [place] [facility] Body weight 2020-11-17 20:20:00 95.119 kg [facility] [place] [facility] BMI 2020-11-17 20:20:00 29.25 kg/m2 [facility]i ty [facility] Branch Oxygen saturation in 2020-11-17 20:20:00 96 /min University of Arterial blood by [facility] Pulse oximetry Branch Systolic blood 2020-04-15 20:43:00 136 mm[Hg] Univer sity of pressure [facility] Diastolic blood 2020-04-15 20:43:00 84 mm[Hg] Unive rsity of pressure [facility] Heart rate 2020-04-15 20:43:00 80 /min Universi ty of [facility] Body temperature 2020-04-15 20:43:00 36.83 Tiera Univ ersity of [facility] Respiratory rate 2020-04-15 20:43:00 20 /min Univ ersity of [facility] Body height 2020-04-15 20:43:00 180.3 cm Universi ty of [facility] Body weight 2020-04-15 20:43:00 91.173 kg Universi ty of [facility] [place] [facility] BMI 2020-04-15 20:43:00 28.03 kg/m2 [facility] ty [facility] [place] [facility] Oxygen saturation in 2020-04-15 20:43:00 98 /min University of Arterial blood by [facility] Pulse oximetry Branch Systolic blood 2020-03-23 14:12:00 127 mm[Hg] Univer sity of pressure [facility] Diastolic blood 2020-03-23 14:12:00 86 mm[Hg] Unive rsity of pressure [facility] Heart rate 2020-03-23 14:12:00 81 /min Universi ty [facility] Body temperature 2020-03-23 14:12:00 36.11 Tiera Univ ersity of [facility] [place] [facility] Respiratory rate 2020-03-23 14:12:00 20 /min Univ ersity of [facility] Body height 2020-03-23 14:12:00 180.3 cm [facility] [place] [facility] Body weight 2020-03-23 14:12:00 91.264 kg [facility] BMI 2020-03-23 14:12:00 28.06 kg/m2 [facility] Oxygen saturation in 2020-03-23 14:12:00 95 /min University of Arterial blood by [facility] Pulse oximetry Branch Systolic blood 2020-03-15 16:24:00 121 mm[Hg] Univer sity of pressure [facility] Diastolic blood 2020-03-15 16:24:00 77 mm[Hg] Unive rsity of pressure [facility] Heart rate 2020-03-15 16:24:00 86 /min [facility]i ty [facility] Body height 2020-03-15 16:24:00 180.3 cm [facility] [place] [facility] Body weight 2020-03-15 16:24:00 90.266 kg [facility] BMI 2020-03-15 16:24:00 27.75 kg/m2 [facility] Systolic blood 2020-03-04 16:46:00 131 mm[Hg] Univer sity of pressure [facility] Diastolic blood 2020-03-04 16:46:00 88 mm[Hg] Unive rsity of pressure [facility] Heart rate 2020-03-04 16:46:00 81 /min Universi ty [facility] Respiratory rate 2020-03-04 16:46:00 19 /min Univ ersity of [facility] [place] [facility] Body height 2020-03-04 16:46:00 180.3 cm [facility] Body weight 2020-03-04 16:46:00 90.538 kg [facility] BMI 2020-03-04 16:46:00 27.84 kg/m2 [facility] Oxygen saturation in 2020-03-04 16:46:00 94 /min University of Arterial blood by [facility] Pulse oximetry Branch Systolic blood 2020-03-04 16:46:00 131 mm[Hg] Univer sity of pressure [facility] Diastolic blood 2020-03-04 16:46:00 88 mm[Hg] Unive rsity of pressure [facility] Heart rate 2020-03-04 16:46:00 81 /min Universi ty [facility] [place] [facility] Respiratory rate 2020-03-04 16:46:00 19 /min Univ ersity of [facility] [place] [facility] Body height 2020-03-04 16:46:00 180.3 cm [facility] [place] [facility] Body weight 2020-03-04 16:46:00 90.538 kg [facility] BMI 2020-03-04 16:46:00 27.84 kg/m2 [facility] Oxygen saturation in 2020-03-04 16:46:00 94 /min University of Arterial blood by [facility] Pulse oximetry Branch Systolic blood 2020-02-19 20:46:00 108 mm[Hg] Univer sity of pressure [facility] Diastolic blood 2020-02-19 20:46:00 72 mm[Hg] Unive rsity of pressure [facility] Heart rate 2020-02-19 20:46:00 81 /min [facility] Body temperature 2020-02-19 20:46:00 36.67 Tiera Univ ersity of [facility] [place] [facility] Respiratory rate 2020-02-19 20:46:00 18 /min Univ ersity of [facility] Body height 2020-02-19 20:46:00 180.3 cm [facility] Body weight 2020-02-19 20:46:00 91.717 kg [facility] [place] [facility] BMI 2020-02-19 20:46:00 28.20 kg/m2 [facility] Oxygen saturation in 2020-02-19 20:46:00 93 /min [facility] Arterial blood by [facility] Pulse oximetry Branch Systolic blood 2019-11-13 20:31:00 142 mm[Hg] Univer sity of pressure [facility] Diastolic blood 2019-11-13 20:31:00 106 mm[Hg] Unive rsity of pressure [facility] Heart rate 2019-11-13 20:27:00 104 /min [facility] Body temperature 2019-11-13 20:27:00 36.89 [facility] 2019-11-13 20:27:00 16 /min [facility] Body height 2019-11-13 20:27:00 180.3 cm [facility] Body weight 2019-11-13 20:27:00 102.967 kg [facility] BMI 2019-11-13 20:27:00 31.66 kg/m2 [facility] Oxygen saturation in 2019-11-13 20:27:00 96 /min [facility] Arterial blood by [facility] Pulse oximetry Branch Procedures Procedure Date / Time Performing Clinician Source Performed EXTERNAL PROVIDER RECORDS 2023-05-15 05:01:00 Doctor Unassigned, [facility] [place] [facility] BASIC METABOLIC PANEL (NA, 2023-05-02 17:20:00 Quinn Casarez [facility] K, CL, CO2, GLUCOSE, BUN, Nikki [facility] [place] CREATININE, CA) ACTIVATED PARTIAL THRMPLAS 2023-05-02 13:42:00 Bertha Carver [facility] MAGNESIUM 2023-05-02 06:28:00 Riddhi Hearn [facility] BASIC METABOLIC PANEL (NA, 2023-05-02 06:28:00 Cal Hearn ra [facility] K, CL, CO2, GLUCOSE, BUN, Medica l Branch CREATININE, CA) CBC WITH DIFF 2023-05-02 06:28:00 Riddhi Hearn [facility] ACTIVATED PARTIAL THRMPLAS 2023-05-02 06:28:00 Bertha Carver [facility] ACTIVATED PARTIAL THRMPLAS 2023-05-01 23:24:00 Bertha Carver [facility] TRANSTHORACIC ECHO (TTE) 2023-05-01 17:12:43 Riddhi Hearn [facility] LIMITED W/ CONTRAST Medical Bran ch ACTIVATED PARTIAL THRMPLAS 2023-05-01 16:50:00 Bertha Carver [facility] MAGNESIUM 2023-05-01 08:53:00 Bertha Carver [facility] COMP. METABOLIC PANEL 2023-05-01 08:53:00 [id number] CBC WITH DIFF 2023-05-01 08:53:00 Bertha Carver [facility] ACTIVATED PARTIAL THRMPLAS 2023-05-01 08:53:00 Bertha Carver [facility] ACTIVATED PARTIAL THRMPLAS 2023-04-30 22:52:00 Bertha Carver [facility] MAGNESIUM 2023-04-30 10:16:00 Ramiro [facility] BASIC METABOLIC PANEL (NA, 2023-04-30 10:16:00 [facility]ro [facility] K, CL, CO2, GLUCOSE, BUN, Medica l Branch CREATININE, CA) CBC WITH DIFF 2023-04-30 10:16:00 Ramiro [facility] MAGNESIUM 2023-04-30 10:16:[address] [facility] BASIC METABOLIC PANEL (NA, 2023-04-30 10:16:00 Ramiro [facility] K, CL, CO2, GLUCOSE, BUN, Medica l Branch CREATININE, CA) CBC WITH DIFF 2023-04-30 10:16:[address] [facility] URINE DRUG (IMMUNOASSAY) - 2023-04-30 05:14[facility]00 [facility] [place] [facility]INE [facility]UG (IMMUNOASSAY) - 2023-04-30 05:14:00 [facility] ACTIVATED PARTIAL THRMPLAS 2023-04-30 02:17:00 [facility] WHOLE BLOOD 2023-04-30 02:17:00 [facility]PLAS 2023-04-30 02:17:00 Bertha Carver [facility] LACTIC ACID WHOLE BLOOD 2023-04-30 02:17:00 Alex Rubio [facility] of [facility] CARDIAC CATHETERIZATION 2023-04-29 23:17:04 [facility] CARDIAC CATHETERIZATION 2023-04-29 23:17:04 [facility] CARDIAC CATHETERIZATION 2023-04-29 23:17:04 [facility] CARDIAC CATHETERIZATION 2023-04-29 23:17:04 [facility] CARDIAC CATHETERIZATION 2023-04-29 23:17:04 [facility] CARDIAC CATHETERIZATION 2023-04-29 23:17:04 Dwayne [facility] POCT ACT LOW RANGE 2023-04-29 22:52:00 [facility] POCT ACT LOW RANGE 2023-04-29 22:52:00 [facility] TROPONIN I 2023-04-29 21:18:00 Bertha Carver [facility] CBC WITH DIFF 2023-04-29 21:18:00 Bertha Carver [facility] ACTIVATED PARTIAL THRMPLAS 2023-04-29 21:18:00 Bertha Carver [facility] LACTIC ACID WHOLE BLOOD 2023-04-29 21:18:00 Bertha Carver [facility] TROPONIN I 2023-04-29 21:18:00 Bertha Carver [facility] CBC WITH DIFF 2023-04-29 21:18:00 Bertha Carver [facility] ACTIVATED PARTIAL THRMPLAS 2023-04-29 21:18:00 Bertha Carver [facility] LACTIC ACID WHOLE BLOOD 2023-04-29 21:18:00 Bertha Carver [facility] HB ECG ROUTINE & RHYTHM 2023-04-29 20:25:07 Bertha Carver [facility] STRIP [facility] PROTHROMBIN TIME / INR 2023-04-29 18:08:[address] [facility] ACTIVATED PARTIAL THRMPLAS 2023-04-29 18:08:00 Bertha Carver [facility] AC PANEL 21 + LACTIC ACID 2023-04-29 18:08:00 Bertha Carver [facility] PROTHROMBIN TIME / INR 2023-04-29 18:08:00 [facility] ACTIVATED PARTIAL THRMPLAS 2023-04-29 18:08:00 Bertha Carver [facility] AC PANEL 21 + LACTIC ACID 2023-04-29 18:08:00 Bertha Carver [facility] XR CHEST 1 VW 2023-04-29 17:45:00 Bertha Carver [facility] XR CHEST 1 2023-04-29 17:45:00 Bertha Carver [facility] TRANSTHORACIC ECHO (TTE) 2023-04-29 17:20:15 Bertha Carver [facility] COMPLETE W/ CONTRAST Medical [facility] TRANSTHORACIC ECHO (TTE) 2023-04-29 17:20:15 Bertha Carver [facility] COMPLETE W/ CONTRAST Medical [facility] MAGNESIUM 2023-04-29 17:08:00 Bertha Carver [facility] TROPONIN I 2023-04-29 17:08:00 Bertha Carver [facility] FREE T4 2023-04-29 17:08:00 Bertha Carver [facility] THYROID STIMULATING 2023-04-29 17:08:00 Bertha Carver [facility] HORMONE [facility] HEPATIC FUNCTION PANEL 2023-04-29 17:08:00 Bertha Carver [facility] ([id number]) (ALB,T.PRO,BILI Medical Branch T,BU/BC,ALT,AST,ALK PHOS) BASIC METABOLIC PANEL (NA, 2023-04-29 17:08:00 Bertha Carver [facility] K, CL, CO2, GLUCOSE, BUN, Medica l Branch CREATININE, CA) LIPID PANEL (32674)(TOTAL 2023-04-29 17:08:00 Bertha Carver [facility] CHOLESTEROL, Medical Branch TRIGLYCERIDES, HDL) ETHANOL 2023-04-29 17:08:00 Bertha Carver [facility] N-TERMINAL PRO-BNP 2023-04-29 17:08:00 Bertha Carver [facility] MAGNESIUM 2023-04-29 17:08:00 Bertha Carver [facility] TROPONIN I 2023-04-29 17:08:00 Bretha Carver [facility] FREE T4 2023-04-29 17:08:00 Bertha Carver [facility] THYROID STIMULATING 2023-04-29 17:08:00 Bertha Carver [facility] HORMONE [facility] HEPATIC FUNCTION PANEL 2023-04-29 17:08:00 Bertha Carver [facility] ([id number]) (ALB,T.PRO,BILI Medical Branch T,BU/BC,ALT,AST,ALK PHOS) BASIC METABOLIC PANEL (NA, 2023-04-29 17:08:00 Bertha Carver [facility] K, CL, CO2, GLUCOSE, BUN, Medica l Branch CREATININE, CA) LIPID PANEL (08174)(TOTAL 2023-04-29 17:08:00 Bertha Carver [facility] CHOLESTEROL, Medical Branch TRIGLYCERIDES, HDL) ETHANOL 2023-04-29 17:08:00 Bertha Carver [facility] N-TERMINAL PRO-BNP 2023-04-29 17:08:00 Bertha Carver [facility] HB ECG ROUTINE & RHYTHM 2023-04-29 16:45:16 Bertha Carver [facility] STRIP Medical [place] HB ECG ROUTINE & RHYTHM 2023-04-29 16:45:16 Bertha Carver [facility] GLYCOSYLATED HEMOGLOBIN 2023-04-29 16:29:00 Bertha Carver [facility] (A1C) Medical Branch GLYCOSYLATED HEMOGLOBIN 2023-04-29 16:29:00 Bertha Carver [facility] (A1C) Medical [place] ASSIGNMENT OF BENEFITS 2020-12-10 19:56:52 Doctor Unassigned, [facility] Name Medical [place] FL TIME OR 2020-11-29 12:35:00 Brice Geller [facility] (NON-REPORTABLE) Medical Branch LUMBAR EPIDURAL STEROID 2020-11-29 12:16:00 [facility] Medical Branch DAY SURGERY - ADC 2020-11-29 05:01:00 [facility] Name Medical [place] CBC WITH DIFF 2020-11-26 15:03:00 Brice Geller [facility] Medical Branch COVID-19 (ID NOW RAPID 2020-11-26 15:03:00 Brice Geller [facility] TESTING) Medical Branch LAB ONLY COVID 2020-11-26 15:03:00 Brice Geller [facility] INTERPRETATION Medical Branch ASSIGNMENT OF BENEFITS 2020-11-26 14:43:36 Doctor Albert, [facility] Name Medical [place] DSU PRE-OP 2020-11-25 05:01:00 Doctor Albert [facility] [place] [facility] [place] POCT URINALYSIS AUTO 2020-04-15 20:49:00 Avery Gandhi [facility] CBC WITH DIFF 2020-03-23 15:18:00 Robbie Dior [facility] ASSIGNMENT OF BENEFITS 2020-02-19 20:25:25 Doctor Albert, [facility] Name Medical [place] Encounters Start End Encounter Admission Attending Care Care Encounter Source Date/Time Date/Time Type Type Clinicians Facility Department ID 2021-05-22 Outpatient Kia GELLER [facility] [id number] Univers 17:17:58 [facility] 2021-05-22 Outpatient R YIMI [facility] [id number] Univers 17:17:54 [facility] 2023-05-15 2023-05-15 Orders Doctor CARLIN 1.2.840.114 [id number] Univers 00:00:00 00:00:00 Only UnassMT chen [id number] ity [facility] [id number] [place] [phone] [facility] 009 Branch 2023-05-08 2023-05-08 Outpatient SFA [facility] [id number] Julius 17:19:23 17:19:23 1017 F [place] 2023-05-05 2023-05-05 [facility] 1.2.840.114 [id number] Univers 00:00:00 00:00:00 [facility] [id number] it y of [place] [id number] [place] as MURALI?BLEA [phone] Ak dicmikaela [facility] [address] [place] MEDICAL OFFICE BUILDING 2023-05-03 2023-05-03 Transition ADALID Frazier 1.2.840.114 [id number] Univers 00:00:00 00:00:00 of Care Yanet LYON [id number] ity [id number] [id number] [facility] 403 Branch 2023-05-03 2023-05-03 Letter [facility] 1.2.840.114 [id number] Univers 00:00:00 00:00:00 (Out) [facility] [id number] it y of Cardiology [place] [id number] [phone] 059 Branch OFFICE BUILDING 2023-04-29 2023-05-02 Inpatient U BRENDA [facility] [id number] Univers 10:16:00 18:34:00 [facility] ity [facility] 2023-04-29 2023-05-02 Hospital Heriberto Rice 1.2.840.114 [id number] Univers 10:16:00 18:34:00 Encounter [place], Afaq [place] [id number] ity of [facility] [id number] [place] [id number] [facility] 090 Branch 2023-04-29 2023-04-29 Surgery Hosea Rice 1.2.840.114 [id number] Univers 16:55:00 19:55:00 MT [id number] it y of HOSPITAL [id number] [place] as [id number] [facility] ranjit [address] [place] 2023-02-27 2023-02-27 Outpatient [facility] [id number] Julius 17:50:26 17:50:26 0808 [place] 2023-01-03 2023-01-03 Outpatient [facility] [id number] Julius 16:46:10 16:46:10 0614 F [place] 2022-06-19 2022-06-19 [facility] 1.2.840.114 [id number] Univers 00:00:00 00:00:00 Robbie DODSON [id number] i ty of [facility] [id number] [phone] Ak dical NAL [address] [place] [address] 2022-04-21 2022-04-21 [facility] 1.2.840.114 [id number] Univers 00:00:00 00:00:00 Robbie DODSON [id number] i ty of [facility] [id number] [phone] Ak dical NAL [address] [place] [address] 2022-01-30 2022-01-30 [facility] 1.2.840.114 [id number] Univers 00:00:00 00:00:00 Robbie DODSON [id number] i ty of [place] [id number] [phone] Ak dical NAL [address] [place] [address] 2021-09-12 2021-09-12 [facility] 1.2.840.114 [id number] Univers 00:00:00 00:00:00 Robbie DODSON [id number] i ty of [place] [id number] [phone] Ak dical NAL [address] [place] [address] 2021-09-12 2021-09-12 [facility] 1.2.840.114 [id number] Univers 00:00:00 00:00:00 Betty DODSON [id number] i ty of [place] [id number] [id number] Ak dical NAL [address] [place] [address] 2021-08-31 2021-08-31 [facility] 1.2.840.114 [id number] Univers 00:00:00 00:00:00 Robbie DODSON [id number] i ty of [facility] [id number] [phone] [facility] NAL [address] [place] [address] 2021-07-22 2021-07-22 [facility] 1.2.840.114 [id number] Univers 00:00:00 00:00:00 Robbie DODSON [id number] i ty of [facility] [id number] [id number] [facility] NAL [address] [place] [address] 2021-06-14 2021-06-14 [facility] 1.2.840.114 [id number] Univers 00:00:00 00:00:00 Robbie DODSON [id number] i ty of [place] 4[place]2.7.2.[place] [phone] [facility] NAL [address] [place] [address] 2021-05-15 2021-05-15 [facility] 1.2.840.114 [id number] Univers 00:00:00 00:00:00 Robbie Dodson 350.1.13.10 i ty of [id number] [phone] [facility] nal [address] [place] [address] 2021-03-22 2021-03-22 [facility] 1.2.840.114 [id number] Univers 00:00:00 00:00:00 Robbie Dodson [id number] i ty of [id number] [phone] [facility] nal [address] [place] [address] 2021-03-18 2021-03-18 Out[facility] [id number] Univers 13:20:00 13:20:00 ROBBIE kwok of [facility] 2020-12-17 2020-12-17 Brandy D[facility] 1.2.840.114 [id number] Univers 00:00:00 00:00:00 Robbie Vinayak 350.1.13.10 i ty of [id number] Profess[place] [phone] Ak dical nal [address] [place] Building 2020-12-10 2020-12-10 Laboratory Only, Adc Test [facility] 1.2.840. 114 [id number] Univers 14:56:11 15:11:11 Only Brice Geller 350.1.13.1 0 ity of [place]2.7.2.[place] [id number] [facility] 353 Branch 2020-12-10 2020-12-10 [facility] [id number] Univers 09:00:00 09:00:00 BRICE ity [facility] 2020-12-10 2020-12-10 Orders Doctor TESFAYE 1.2.840.114 [id number] Univers 00:00:00 00:00:00 Only Unassigned, [place] 350.1.13.10 ity of [place] [facility] 4.2.7.2.686 [place] [id number] [facility] 009 Branch 2020-11-29 2020-11-29 Surgery [facility] 1.2.058.178 [id number] Univers 09:00:00 09:21:00 Briceshani Dodson 350.1.13.10 ity of [place]2.7.2.[place] Surgical [id number] [facility] 020 Branch 2020-11-29 2020-11-29 [facility] 1.2.840.114 [id number] Univers 06:17:00 08:21:00 Encounter Brice Richardson Vinayak 350.1.13.10 ity of [place]2.7.2.[place] Surgical [id number] [facility] 071 Branch 2020-11-29 2020-11-29 Orders Doctor TESFAYE 1.2.840.114 [id number] Univers 00:00:00 00:00:00 Only Unassigned, [place] 350.1.13.10 ity of [place] [facility] 4.2.7.2.686 [place] [id number] [address] 2020-11-26 2020-11-26 Outpatient R YIMI [facility] [id number] Univers 12:00:00 12:00:00 BRICE ity of [facility] 2020-11-26 2020-11-26 Laboratory Only, Adc Test [facility] 1.2.840. 114 [id number] Univers 09:46:31 10:01:31 Only Brice Geller 350.1.13.1 0 ity of [place]2.[place].2.[place] [id number] [address] 2020-11-26 2020-11-26 Muffler Installer Corey, Adc Lab Main [facility] 1.2.8 40.114 [id number] Univers 09:43:52 09:58:52 Visit Brice Geller Vinayak 350.1.13.1 0 ity of [place]2.7.2.[place] [facility] [phone] [address] 2020-11-26 2020-11-26 Orders Doctor CARLIN 1.2.840.114 [id number] Univers 00:00:00 00:00:00 Only Unassigned, [place] 350.1.13.10 ity of [place] [facility] 4.2.7.2.686 [place] [id number] [address] 2020-11-25 2020-11-25 Orders Doctor CARLIN 1.2.840.114 [id number] Univers 00:00:00 00:00:00 Only Unassigned, [place] 350.1.13.10 ity of [place] [facility] 4.2.7.2.686 [place] [id number] [address] 2020-11-17 2020-11-17 Office Yong [facility] 1.2.840.114 [id number] Univers 15:11:19 15:54:54 Visit Robbie Dodson 350.1.13.10 i ty of [place].2.[place] Profess[place] [phone] [address] 2020-11-17 2020-11-17 Outpatient [facility] [id number] Univers 15:20:00 15:20:00 ROBBIE kwok [facility] 2020-10-30 2020-10-30 Refill [facility] 1.2.840.114 [id number] Univers 00:00:00 00:00:00 [facility] 350.1.13.10 it y of [place] 4.2.7.2.686 [place] Professio [phone] [address] One 2020-10-19 2020-10-19 Outpatient [facility] [id number] Univers 14:40:00 14:40:00 ROBBIE rissa [facility] 2020-10-18 2020-10-18 Refill [facility] 1.2.840.114 [id number] Univers 00:00:00 00:00:00 Robbie Dodson 350.1.13.10 i ty [place].2.[place] Profess[place] [phone] [address] 2020-09-23 2020-09-23 [facility] RavinderREHOB[facility] 1.2.840.114 [id number] Univers 00:00:00 00:00:00 Betty Dodson 350.1.13.10 i ty of [place].2.[place] [phone] [address] 2020-08-11 2020-08-11 Refill [facility]REH[facility] 1.2.840.114 [id number] Univers 00:00:00 00:00:00 Robbie Dodson 350.1.13.10 [place] [phone] [address] 2020-07-20 2020-07-20 [facility] 1.2.840.114 [id number] Univers 07:50:43 13:12:30 ne Visit Robbie Cobianton 350.1.13.10 [place] [phone] [address] 2020-07-20 2020-07-20 Outpatient [facility] [id number] Univers 08:40:00 08:40:00 ROBBIE ranjeet [facility] 2020-07-01 2020-07-01 [facility] 1.2.840.114 [id number] Univers 00:00:00 00:00:00 Betty Vinayak 350.1.13.10 i ty of [place] [phone] [address] 2020-06-23 2020-06-23 Out[facility] [id number] Univers 14:40:00 14:40:00 ROBBIE kwok [facility] 2020-06-14 2020-06-14 Outpatient R [facility] [id number] Univers 13:30:00 13:30:00 RICHARJUNIOR kwok [facility] 2020-05-02 2020-05-02 Refbrittny JaileslydoronfaridaREHOB[facility] 1.2.840.114 [id number] Univers 00:00:00 00:00:00 [facility] 350.1.13.10 it y of [place] 4.2.7.2.686 [place] Professio [phone] [address] Office [facility] One 2020-04-15 2020-04-15 Office RUST 1.2.840.114 [id number] Univers 15:26:41 16:15:27 Visit Avery Dodson 350.1.13.10 [place] [phone] [facility] 204 [facility] 2020-04-15 2020-04-15 [facility] [id number] Univers 15:30:00 15:30:00 AVERY [facility] 2020-04-14 2020-04-14 Outpatient R GRAMM, [facility] [id number] Univers 08:30:00 08:30:00 RICHAR kwok [facility] 2020-03-23 2020-03-23 Muffler Installer 2, Adc Lab [facility] 1.2.840.114 [id number] Univers 10:12:51 10:27:51 Visit Robbie Dior 350.1.13.10 [place] [phone] Ak dical nal 353 [facility] 2020-03-23 2020-03-23 Office [facility]RE[facility] 1.2.840.114 [id number] Univers 08:52:24 10:03:07 Visit Robbie Dodson 350.1.13.10 [place] [phone] Ak dical nal 044 [facility] 2020-03-23 2020-03-23 Out[facility] [id number] Univers 09:20:00 09:20:00 ROBBIE kwok [facility] 2020-03-15 2020-03-15 Laboratory Pc, Adc Echo Room 1 - [facility] 1 .2.840.114 [id number] Univers 11:19:09 11:54:47 Only Sivakumar Luevano 350.1.13.10 [place] [phone] Ak dical nal 059 [facility] 2020-03-15 2020-03-15 Outpatient R [facility] [id number] Univers 11:00:00 11:00:00 ity of [facility] 2020-03-04 2020-03-04 Office [facility] 1.2.840.114 [id number] Univers 11:30:10 12:03:59 Visit Sivakumar Dodson 350.1.13.10 [place] [phone] Ak dical nal 059 [facility] 2020-03-04 2020-03-04 Office WinREH[facility] 1.2.840.114 [id number] 11:30:10 12:03:59 Visit Sivakumar Dodson 350.1.13.10 [place] 4.2.7.2.686 Professio [phone] [facility] 2020-03-04 2020-03-04 Outpatient R [facility] [id number] Univers 10:40:00 10:40:00 SIVAKUMAR virginiaranjeet o f [facility] 2020-02-24 2020-02-24 [facility] 1.2.840.114 [id number] Univers 00:00:00 00:00:00 [facility] 350.1.13.10 it y of yadira [place] 4.2.7.2.686 [place] [phone] [address] 2020-02-24 2020-02-24 Telephone [facility] 1.2.840.114 [id number] Univers 00:00:00 00:00:00 [facility] 350.1.13.10 it y of yadira [place] 4.2.7.2.686 [place] [phone] [address] 2020-02-19 2020-02-19 Office [facility] 1.2.840.114 [id number] Univers 15:26:05 16:47:38 Visit Robbie Dodson 350.1.13.10 i [place] [phone] [address] 2020-02-19 2020-02-19 Outpatient [facility] [id number] Univers 15:20:00 15:20:00 ROBBIE kwok of [facility] 2020-02-19 2020-02-19 Orders Doctor TESFAYE 1.2.840.114 [id number] Univers 00:00:00 00:00:00 Only Unassigned, [place] 350.1.13.10 ity of [place] [facility] 4.2.7.2.686 [place] as [phone] [address] 2020-02-13 2020-02-13 [facility] 1.2.840.114 [id number] Univers 00:00:00 00:00:00 Betty Dodson 350.1.13.10 i ty of [place] [phone] [address] 2020-02-12 2020-02-12 Outpatient R FRANCESCO [facility] [id number] Univers 15:00:00 15:00:00 RAJAT ity [facility] 2020-02-12 2020-02-12 Laboratory Lab, Adc Fam Pob I [facility] 1.2. 840.114 [id number] Univers 14:26:54 14:46:54 Only Elen Mayamarta Cisse 350.1.13.10 ity of [place] 4.2.7.2.686 [place] [phone] [address] 2020-02-12 2020-02-12 Letter Doctor TESFAYE 1..840.114 [id number] Univers 00:00:00 00:00:00 (Out) Unassigned[place] 350.1.13.10 ity of [place] [facility] 4.2.7.2.686 [place] as [phone] [address] 2019-12-08 2019-12-08 Outpatient R RAVINDER [facility] [id number] Univers 09:30:00 09:30:00 BETTY kwok [facility] 2019-12-08 2019-12-08 Telemedici RavinderREHOBOTH [facility] 1.2.840.114 [id number] Univers 07:55:53 08:25:53 ne Visit Betty Dodson 350.1.13.10 ity of [place] [phone] [address] 2019-11-27 2019-11-27 Telephone Francesco [facility] 1.2.268.908 [id number] Univers 00:00:00 00:00:00 Rajatyahaira Cisse 350.1.13.10 it y of [place] 4.2.7.2.686 [place] [phone] [address] 2019-11-14 2019-11-14 Telephone Yong [facility] 1.2.840.114 [id number] [facility] 00:00:00 00:00:00 [facility] 350.1.13.10 it y of [place] 4.2.7.2.686 [place] [phone] [address] One 2019-11-13 2019-11-13 Urgent Pob1, Acute Care Clinic [facility] 1. 2.840.114 [id number] [facility] 15:27:16 15:59:22 [facility] Robbie Dior [facility] 350.1.13.10 ity of [place] 4.2.7.2.686 [place] [phone] [address] Building One 2019-11-13 2019-11-13 Outpatient [facility] [id number] [facility] 15:40:00 15:40:00 ROBBIE [facility] Results Test Description Test Time Test Comments Results Result Comments Source Transthoracic echo (TTE) 2023-05-01 18:55:05 Test Item Value Reference Range Interpretation Comme nts Height (test code = 5300409947) 71 in Weight (test code = 0699810426) 211 lbs Systolic BP (test code = 7861619743) 141 mmHg Diastolic BP (test code = 7650355594) 96 mmHg Heart Rate (test code = 9295889351) 64 bpm BSA (test code = 9083791780) 2.16 m2 A4C EF (test code = 7938679186) 53.00 % EF(sp4-el) (test code = 8334584978) 53.30 % SV(MOD-sp4) (test code = 8140408762) 79.70 mL SV(sp4-el) (test code = 7698720984) 84.40 mL LV Diastolic Volume (BP) (test code = 160.1 mL 6799299423) A2C EF (test code = 6665609544) 64.70 % EF(MOD-bp) (test code = 2291371066) 58.00 % EF(sp2-el) (test code = 2447823856) 63.70 % LV Systolic Volume (BP) (test code = 67.2 mL 5019343140) SV(MOD-bp) (test code = 5505369476) 92.80 mL SV(MOD-sp2) (test code = 9060780509) 114.80 mL EF (test code = 4860501883) 58 Left Ventricular Stroke Volume by 2-D 92.8 mL Biplane-MOD (test code = 5217484) LV Diastolic Volume Index (BP) (test 74.1 mL/m2 code = 3312823348) LV Systolic Volume Index (BP) (test 31.1 mL/m2 code = 8844523073) Radiology Study observation (narrative) (test code = 09579-9) ALEC (test code = ALEC) ?Left?Ventricle: See diagram for wall motion findings. Estimated EF is 55 - 60%. EF by 2D Mondragon biplane is 58%. No thrombus present. ?. 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 Left VentricleSee diagram for wall motion findings. Estimated EF is 55 - 60%. EF by 2D Mondragon biplane is 58%. No thrombus present. 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 A limited echocardiogram was performed using 2D. 5 mL of Lumason ultrasound enhancing agent used.Wall Scoring BaselineScore Index: 2.18The following segments are aneurysmal: apical anterior, apical septal, apical inferior, apical lateral and apex.All other segments are normal. [facility]2023-[facility]-09 23:19:08 Test Item Value Reference Range Interpretation Comments APTT Patient (test code = 33 See_Comment [ Automated message] 3173-2) The system [employer] generated this result transmitted ref erence range: 26 - 36 Seconds. The re ference range was not u sed to interpret this result as normal/abnor mal. Lab Interpretation (test Normal code = 19471-0) [facility] (NA, K, CL, CO2, GLUCOSE, BUN, CREATININE, CA)2023-04-30 11:01:00 Test Item Value Reference Range Interpretation Comments NA (test code = 137 mmol/L 135-145 0664037238) K (test code = 4.2 mmol/L 3.5-5.0 Slight hemoly sis 5372334078) CL (test code = 100 mmol/L 98-108 4633355078) CO2 TOTAL (test 28 mmol/L - code = 5319404947) AGAP (test code = 9 2-16 4146986285) BUN (test code = 19 mg/dL 7-23 Slight hemo lysis 3860458433) GLUCOSE (test code 106 mg/dL 70-110 = 2121351136) CREATININE (test 1.13 mg/dL 0.60-1.25 code = 5224709595) CALCIUM (test code 8.8 mg/dL 8.6-10.6 = 0203589952) eGFR (test code = 69.3 mL/min/1.73m2 4924610923) ALEC (test code = Association of ALEC) Glomerular Filtration Rate (GFR) and Staging of Kidney Disease* + ----+ ------+ +| GFR (mL/min/1.73 m2) ?| With Kidney Damage ?| ?Without Kidney Damage+ +--------- +------- +| ?>90 ?| ?Stage one ?| ? Normal ?+ -----+ -------+ +| ?60-89 ?| ?Stage two ?| ? Decreased GFR ? + ----+ ------+ +| ?30-59 ?| ?Stage three ?| ? Stage three ? + ----+ ------+ +| ?15-29 ?| ?Stage four ? | ? Stage four ?+ -----+ -------+ +| ?<15 (or dialysis) ? ?| ?Stage five ? | ? Stage five ?+ -----+ -------+ + *Each stage assumes the associated GFR level has been in effect for at least three months. ?Stages 1 to 5, with or without kidney disease, indicate chronic kidney disease. Notes: Determination of stages one and two (with eGFR >59mL/min/1.73 m2) requires estimation of kidney damage for at least three months as defined by structural or functional abnormalities of the kidney, manifested by either:Pathological abnormalities or Markers of kidney damage (including abnormalities in the composition of the blood or urine or abnormalities in imaging tests). [facility]2023-10-09 11:01:00 Test Item Value Reference Range Interpretation Comments MAGNESIUM (test code = 5631984336) 2.2 mg/dL 1.7-2.4 Lab Interpretation (test code = Normal 77127-8) [facility] (NA, K, CL, CO2, GLUCOSE, BUN, CREATININE, CA)2023-04-30 11:01:00 Test Item Value Reference Range Interpretation Comments NA (test code = 137 mmol/L 135-145 7192512179) K (test code = 4.2 mmol/L 3.5-5.0 Slight hemoly sis 3355549024) CL (test code = 100 mmol/L 98-108 2144635837) CO2 TOTAL (test 28 mmol/L 23-31 code = 9840073832) AGAP (test code = 9 2-16 6838221223) BUN (test code = 19 mg/dL 7-23 Slight hemo lysis 3818563368) GLUCOSE (test code 106 mg/dL 70-110 = 7435153015) CREATININE (test 1.13 mg/dL 0.60-1.25 code = 7900760357) CALCIUM (test code 8.8 mg/dL 8.6-10.6 = 9679246276) eGFR (test code = 69.3 mL/min/1.73m2 1216769832) ALEC (test code = Association of ALEC) Glomerular Filtration Rate (GFR) and Staging of Kidney Disease* + ----+ ------+ +| GFR (mL/min/1.73 m2) ?| With Kidney Damage ?| ?Without Kidney Damage+ +--------- +------- +| ?>90 ?| ?Stage one ?| ? Normal ?+ -----+ -------+ +| ?60-89 ?| ?Stage two ?| ? Decreased GFR ? + ----+ ------+ +| ?30-59 ?| ?Stage three ?| ? Stage three ? + ----+ ------+ +| ?15-29 ?| ?Stage four ? | ? Stage four ?+ -----+ -------+ +| ?<15 (or dialysis) ? ?| ?Stage five ? | ? Stage five ?+ -----+ -------+ + *Each stage assumes the associated GFR level has been in effect for at least three months. ?Stages 1 to 5, with or without kidney disease, indicate chronic kidney disease. Notes: Determination of stages one and two (with eGFR >59mL/min/1.73 m2) requires estimation of kidney damage for at least three months as defined by structural or functional abnormalities of the kidney, manifested by either:Pathological abnormalities or Markers of kidney damage (including abnormalities in the composition of the blood or urine or abnormalities in imaging tests). [facility]2023-10-09 11:01:00 Test Item Value Reference Range Interpretation Comments MAGNESIUM (test code = 7871772943) 2.2 mg/dL 1.7-2.4 Lab Interpretation (test code = Normal 74879-0) [facility] WITH [id number] 10:37:41 Test Item Value Reference Range Interpretation Comments WBC (test code = 15.81 See_Comment H [Automated 1351-2) message] The system which generated this result transmit sg reference range : 4.20 - 10.70 10*3/?L. The reference range was not used to interpret this result as normal/abnormal . RBC (test code = 4.26 See_Comment [Automated 459-8) message] The system which generated this result transmit sg reference range : 4.26 - 5.52 10*6/?L. The reference range was not used to interpret this result as normal/abnormal . HGB (test code = 11.7 g/dL 12.2-16.4 L 718-7) HCT (test code = 36.8 % 38.4-49.3 L 4544-3) MCV (test code = 86.4 fL 81.7-95.6 787-2) MCH (test code = 27.5 pg 26.1-32.7 785-6) MCHC (test code = 31.8 g/dL 31.2-35.0 786-4) RDW-SD (test code = 45.4 fL 38.5-51.6 97593-2) RDW-CV (test code = 14.5 % 12.1-15.4 788-0) PLT (test code = 250 See_Comment [Automated 957-3) message] The system which generated this result transmit sg reference range : 150 - 328 10*3/ ?L. The reference range was not u sed to interpret th is result as normal/abnormal . MPV (test code = 11.8 fL 9.8-13.0 91022-6) NRBC/100 WBC (test 0.0 See_Comment [Automat ed code = 5245812117) message] The system which generated this result transmit sg reference range : 0.0 - 10.0 /100 WBCs. The reference range was not used to interpret this result as normal/abnormal . NRBC x10^3 (test code See_Comment [Auto mated = 1247767325) message] The system which generated this result transmit sg reference range : 10*3/?L. The reference range was not used to interpret this result as normal/abnormal . GRAN MAT (NEUT) % 82.6 % (test code = 770-8) IMM GRAN % (test code 0.40 % = 5357723863) LYMPH % (test code = 11.1 % 736-9) MONO % (test code = 5.6 % 5905-5) EOS % (test code = 0.0 % 713-8) BASO % (test code = 0.3 % 706-2) GRAN MAT x10^3(ANC) 13.05 10*3/uL 1.99-6.95 H (test code = 2825039908) IMM GRAN x10^3 (test 0.07 10*3/uL 0.00-0.06 H code = 0991718656) LYMPH x10^3 (test code 1.76 10*3/uL 1.09-3.23 = 731-0) MONO x10^3 (test code 0.89 10*3/uL 0.36-1.02 = 742-7) EOS x10^3 (test code = 0.06-0.53 L 711-2) BASO x10^3 (test code 0.04 10*3/uL 0.01-0.09 = 704-7) Lab Interpretation Abnormal (test code = 92479-6) [facility] WITH [id number] 10:37:41 Test Item Value Reference Range Interpretation Comments WBC (test code = 15.81 See_Comment H [Automated 6590-2) message] The system which generated this result transmit sg reference range : 4.20 - 10.70 10*3/?L. The reference range was not used to interpret this result as normal/abnormal . RBC (test code = 4.26 See_Comment [Automated 789-8) message] The system which generated this result transmit sg reference range : 4.26 - 5.52 10*6/?L. The reference range was not used to interpret this result as normal/abnormal . HGB (test code = 11.7 g/dL 12.2-16.4 L 718-7) HCT (test code = 36.8 % 38.4-49.3 L 4544-3) MCV (test code = 86.4 fL 81.7-95.6 787-2) MCH (test code = 27.5 pg 26.1-32.7 785-6) MCHC (test code = 31.8 g/dL 31.2-35.0 786-4) RDW-SD (test code = 45.4 fL 38.5-51.6 78841-1) RDW-CV (test code = 14.5 % 12.1-15.4 788-0) PLT (test code = 250 See_Comment [Automated 777-3) message] The system which generated this result transmit sg reference range : 150 - 328 10*3/ ?L. The reference range was not u sed to interpret th is result as normal/abnormal . MPV (test code = 11.8 fL 9.8-13.0 53077-1) NRBC/100 WBC (test 0.0 See_Comment [Automat ed code = 8287346960) message] The system which generated this result transmit sg reference range : 0.0 - 10.0 /100 WBCs. The reference range was not used to interpret this result as normal/abnormal . NRBC x10^3 (test code See_Comment [Auto mated = 9322962502) message] The system which generated this result transmit sg reference range : 10*3/?L. The reference range was not used to interpret this result as normal/abnormal . GRAN MAT (NEUT) % 82.6 % (test code = 770-8) IMM GRAN % (test code 0.40 % = 7157509362) LYMPH % (test code = 11.1 % 736-9) MONO % (test code = 5.6 % 5905-5) EOS % (test code = 0.0 % 713-8) BASO % (test code = 0.3 % 706-2) GRAN MAT x10^3(ANC) 13.05 10*3/uL 1.99-6.95 H (test code = 9617829792) IMM GRAN x10^3 (test 0.07 10*3/uL 0.00-0.06 H code = 9618840609) LYMPH x10^3 (test code 1.76 10*3/uL 1.09-3.23 = 731-0) MONO x10^3 (test code 0.89 10*3/uL 0.36-1.02 = 742-7) EOS x10^3 (test code = 0.06-0.53 L 711-2) BASO x10^3 (test code 0.04 10*3/uL 0.01-0.09 = 704-7) Lab Interpretation Abnormal (test code = 78270-3) [facility] (for use with Heparin Infusion)2023-04-30 02:56:50 Test Item Value Reference Range Interpretation Comments APTT Patient (test code 38 See_Comment H [Au tomated message] = 3173-2) The system [employer] generated this result transmitted ref erence range: 26 - 36 Seconds. The reference range was not used to int erpret this result as normal/abnormal . Lab Interpretation (test Abnormal code = 84499-4) [facility] (for use with Heparin Infusion)2023-04-30 02:56:50 Test Item Value Reference Range Interpretation Comments APTT Patient (test code 38 See_Comment H [Au tomated message] = 3173-2) The system [employer] generated this result transmitted ref erence range: 26 - 36 Seconds. The reference range was not used to int erpret this result as normal/abnormal . Lab Interpretation (test Abnormal code = 80801-3) [facility] Whole [id number] 02:32:29 Test Item Value Reference Range Interpretation Comments LACTIC ACID (test code = 1.09 mmol/L 0.50-2.20 1302887017) Lab Interpretation (test code = Normal 84868-3) [facility] [id number] 02:32:29 Test Item Value Reference Range Interpretation Comments LACTIC ACID (test code = 1.09 mmol/L 0.50-2.20 2499311763) Lab Interpretation (test code = Normal 36819-6) [facility] ACT LOW [id number] 22:58:30 Test Item Value Reference Range Interpretation Comments ACTLR (test code = 199 See_Comment H [Automat ed message] 4002002141) The system [employer] generated this result transmitted ref erence range: 89 - 169 Seconds. The reference range was not used to int erpret this result as normal/abnormal . Lab Interpretation (test Abnormal code = 92028-8) [facility] ACT LOW [id number] 22:58:30 Test Item Value Reference Range Interpretation Comments ACTLR (test code = 199 See_Comment H [Automat ed message] 9831736146) The system [employer] generated this result transmitted ref erence range: 89 - 169 Seconds. The reference range was not used to int erpret this result as normal/abnormal . Lab Interpretation (test Abnormal code = 88795-1) [facility] [id number] 21:24:18 Test Item Value Reference Range Interpretation Comments LACTIC ACID (test code = 2.87 mmol/L 0.50-2.20 H 9622934733) Lab Interpretation (test code = Abnormal 35286-7) [facility]an[facility] Acid Whole [id number] 21:24:18 Test Item Value Reference Range Interpretation Comments LACTIC ACID (test code = 2.87 mmol/L 0.50-2.20 H 8250228783) Lab Interpretation (test code = Abnormal 56040-0) [facility]Transthor[facility] echo (TTE)2023-04-29 19:31:54 Test Item Value Reference Range Interpretation Comments Height (test code = 71 in 2495936801) Weight (test code = 212 lbs 1432002129) Systolic BP (test code 170 mmHg = 5192073985) Diastolic BP (test code 115 mmHg = 0874479468) Heart Rate (test code = 97 bpm 4354875239) BSA (test code = 2.16 m2 1796074579) LVOT diameter (test 2.00 cm code = 4337763226) LVOT area (test code = 3.10 cm2 6997820084) Ao root diam (test code 3.50 cm = 0900030544) Aortic root (test code 3.5 cm = 0347920640) Ao root annulus (test 3.5 cm code = 6289779503) LA size (test code = 3.4 cm 5229265080) LVIDD (test code = 4.50 cm 5153136328) Left Ventricular End 91.1 mL Diastolic Volume by Teichholz Method (test code = 8262720) IVS (test code = 1.60 cm 1411529723) Interventricular Septum 1.60 cm Diastolic Thickness by 2D (test code = 0776588) LVPWD (test code = 1.69 cm 6157293463) PW (test code = 1.69 cm 0.6-1.3 7082645239) EF(Teich) (test code = 52.20 % 0208657080) LVIDS (test code = 3.30 cm 9283196824) Left Ventricular End 43.6 mL Systolic Volume by Teichholz Method (test code = 4959269) FS (test code = 27 % 4661934570) EF - 2D (test code = 52.20 % 84436299) MV Peak E Moses (test 64.7 cm/s code = 3967062673) MV Peak A Moses (test 99.8 cm/s code = 7224851500) E/A ratio (test code = 0.65 ratio 4260145281) MV E/e' septal (test 8.4 cm/s code = 8375726316) LVOT stroke volume 51.60 cm3 (test code = 6928786591) LVOT peak moses (test 99.8 cm/s code = 7125213937) LVOT mn grad (test code 1.8 mmHg = 4630632685) AV LVOT peak gradient 4.0 mmHg (test code = 2002670996) LVOT peak VTI (test 16.5 cm code = 5783660722) LV V1 mean (test code = 61.10 cm/s 7752471832) Aortic valve mean 85.2 cm/s velocity (test code = 1355846087) Ao peak moses (test code 138.5 cm/s = 7155220142) Ao VTI (test code = 19.1 cm 7195561794) AV area by cont VTI 2.7 cm2 (test code = 5331004384) AV area peak moses (test 2.3 cm2 code = 5757496838) Ao max PG (test code = 7.70 mm[Hg] 0751671152) AV peak gradient (test 7.7 mmHg code = 9219403219) AV valve area (test 2.70 cm2 code = 3657776202) AV mean gradient (test 3.5 mmHg code = 9447758345) Tapse (test code = 2.43 cm 0194513985) LAV(MOD-sp4) (test code 52.50 mL = 3466738590) LA Volume Index (BP) 28.5 mL/m2 (test code = 8149360572) LA volume (BP) (test 61.6 mL code = 8340203359) LAV(MOD-sp2) (test code 59.20 mL = 2068533475) IVC Diam Exp(MM) (test 2.60 cm code = 7693172306) IVC Diam Ins(MM) (test 1.70 cm code = 1345816357) Radiology Study observation (narrative) (test code = 52392-3) ALEC (test code = ALEC) ?Left?Ventricle: Left ventricle size is normal. Severely increased wall thickness. There is severe concentric hypertrophy. Regional wall motion abnormalities present. Large apical akinesis ( aneurysmal) Mildly reduced systolic function with a visually estimated EF of 40 - 45%. There is grade 1 diastolic dysfunction. ?Right?Ventricle: Right ventricle size is normal. Severely increased wall thickness. Normal systolic function. ?IVC/SVC: IVC diameter is greater than 21 mm and decreases less than 50% during inspiration; therefore the estimated right atrial pressure is elevated (~15 mmHg). ?Left?Atrium: Left atrium size is normal. Left VentricleLeft ventricle size is normal. Severely increased wall thickness. There is severe concentric hypertrophy. Regional wall motion abnormalities present. Large apical akinesis ( aneurysmal) Mildly reduced systolic function with a visually estimated EF of 40 - 45%. There is grade 1 diastolic dysfunction.Right VentricleRight ventricle size is normal. Severely increased wall thickness. Normal systolic function.Left AtriumLeft atrium size is normal.Right AtriumRight atrium size is normal.IVC/SVCIVC diameter is greater than 21 mm and decreases less than 50% during inspiration; therefore the estimated right atrial pressure is elevated (~15 mmHg). SVC was not assessed.Mitral ValveMitral valve structure is normal. Trace transvalvular regurgitation. No stenosis.Tricuspid ValveNot well visualized. Trace transvalvular regurgitation. Insufficient tricuspid regurgitation jet to estimate RVSP .Aortic ValveAortic valve structure is normal. Trace transvalvular regurgitation. No hemodynamically significant .Pulmonic ValveNot well visualized.Ascending AortaNormal sized annulus.PericardiumSma ll pericardial effusion present.Study DetailsStudy quality experienced technical difficulty. A complete echocardiogram was performed using 2D, color flow Doppler and spectral Doppler. The apical, parasternal and subcostal views were obtained. 3 mL of Optison ultrasound enhancing agent used.Wall Scoring BaselineScore Index: 1.76The following segments are akinetic: apical anterior, apical septal, apical inferior, apical lateral and apex.The following segments are hypokinetic: mid anterior, mid inferoseptal and mid inferior.All other segments are normal. [facility] ([facility])2023-04-29 19:31:54 Test Item Value Reference Range Interpretation Comments Height (test code = 71 in 2286981507) Weight (test code = 212 lbs 7303041547) Systolic BP (test code 170 mmHg = 2553884211) Diastolic BP (test code 115 mmHg = 6367488753) Heart Rate (test code = 97 bpm 4487185329) BSA (test code = 2.16 m2 3979463562) LVOT diameter (test 2.00 cm code = 6135328519) LVOT area (test code = 3.10 cm2 2021095298) Ao root diam (test code 3.50 cm = 4834294425) Aortic root (test code 3.5 cm = 8992377597) Ao root annulus (test 3.5 cm code = 0666696249) LA size (test code = 3.4 cm 9568707722) LVIDD (test code = 4.50 cm 5998007396) Left Ventricular End 91.1 mL Diastolic Volume by Teichholz Method (test code = 7186386) IVS (test code = 1.60 cm 5807013161) Interventricular Septum 1.60 cm Diastolic Thickness by 2D (test code = 5362299) LVPWD (test code = 1.69 cm 4842668376) PW (test code = 1.69 cm 0.6-1.7 4496066134) EF(Teich) (test code = 52.20 % 0287496295) LVIDS (test code = 3.30 cm 6882560224) Left Ventricular End 43.6 mL Systolic Volume by Teichholz Method (test code = 3382510) FS (test code = 27 % 8222999828) EF - 2D (test code = 52.20 % 88426346) MV Peak E Moses (test 64.7 cm/s code = 4422425563) MV Peak A Moses (test 99.8 cm/s code = 3450457413) E/A ratio (test code = 0.65 ratio 7441327376) MV E/e' septal (test 8.4 cm/s code = 5633849118) LVOT stroke volume 51.60 cm3 (test code = 1766936189) LVOT peak moses (test 99.8 cm/s code = 6935649664) LVOT mn grad (test code 1.8 mmHg = 9142492645) AV LVOT peak gradient 4.0 mmHg (test code = 5594741964) LVOT peak VTI (test 16.5 cm code = 4950736463) LV V1 mean (test code = 61.10 cm/s 6637878657) Aortic valve mean 85.2 cm/s velocity (test code = 4307547291) Ao peak moses (test code 138.5 cm/s = 8754947964) Ao VTI (test code = 19.1 cm 9544321702) AV area by cont VTI 2.7 cm2 (test code = 4753604448) AV area peak moses (test 2.3 cm2 code = 2913900168) Ao max PG (test code = 7.70 mm[Hg] 3164588062) AV peak gradient (test 7.7 mmHg code = 5002270816) AV valve area (test 2.70 cm2 code = 3509456269) AV mean gradient (test 3.5 mmHg code = 2072982670) Tapse (test code = 2.43 cm 5399663862) LAV(MOD-sp4) (test code 52.50 mL = 9657810046) LA Volume Index (BP) 28.5 mL/m2 (test code = 5473597596) LA volume (BP) (test 61.6 mL code = 2711081754) LAV(MOD-sp2) (test code 59.20 mL = 3768054897) IVC Diam Exp(MM) (test 2.60 cm code = 5626738025) IVC Diam Ins(MM) (test 1.70 cm code = 6434972467) Radiology Study observation (narrative) (test code = 33346-3) ALEC (test code = ALEC) ?Left?Ventricle: Left ventricle size is normal. Severely increased wall thickness. There is severe concentric hypertrophy. Regional wall motion abnormalities present. Large apical akinesis ( aneurysmal) Mildly reduced systolic function with a visually estimated EF of 40 - 45%. There is grade 1 diastolic dysfunction. ?Right?Ventricle: Right ventricle size is normal. Severely increased wall thickness. Normal systolic function. ?IVC/SVC: IVC diameter is greater than 21 mm and decreases less than 50% during inspiration; therefore the estimated right atrial pressure is elevated (~15 mmHg). ?Left?Atrium: Left atrium size is normal. Left VentricleLeft ventricle size is normal. Severely increased wall thickness. There is severe concentric hypertrophy. Regional wall motion abnormalities present. Large apical akinesis ( aneurysmal) Mildly reduced systolic function with a visually estimated EF of 40 - 45%. There is grade 1 diastolic dysfunction.Right VentricleRight ventricle size is normal. Severely increased wall thickness. Normal systolic function.Left AtriumLeft atrium size is normal.Right AtriumRight atrium size is normal.IVC/SVCIVC diameter is greater than 21 mm and decreases less than 50% during inspiration; therefore the estimated right atrial pressure is elevated (~15 mmHg). SVC was not assessed.Mitral ValveMitral valve structure is normal. Trace transvalvular regurgitation. No stenosis.Tricuspid ValveNot well visualized. Trace transvalvular regurgitation. Insufficient tricuspid regurgitation jet to estimate RVSP .Aortic ValveAortic valve structure is normal. Trace transvalvular regurgitation. No hemodynamically significant .Pulmonic ValveNot well visualized.Ascending AortaNormal sized annulus.PericardiumSma ll pericardial effusion present.Study DetailsStudy quality experienced technical difficulty. A complete echocardiogram was performed using 2D, color flow Doppler and spectral Doppler. The apical, parasternal and subcostal views were obtained. 3 mL of Optison ultrasound enhancing agent used.Wall Scoring BaselineScore Index: 1.76The following segments are akinetic: apical anterior, apical septal, apical inferior, apical lateral and apex.The following segments are hypokinetic: mid anterior, mid inferoseptal and mid inferior.All other segments are normal. [facility]AC [facility] + LACTIC [id number] 18:14:49 Test Item Value Reference Range Interpretation Comments PH (test code = 7.34 7.32-7.42 1494841720) PCO2 JUAN RAMON (test code = 46 See_Comment [Auto mated 6087278498) message] The sy stem which generated this result transmitted reference range : 41 - 51 mmHg. The reference range was not used to interpret this result as normal/abnormal . PO2 JUAN RAMON (test code = 39 See_Comment [Autom ated 1762502986) message] The sy stem which generated this result transmitted reference range : 25 - 40 mmHg. The reference range was not used to interpret this result as normal/abnormal . HCO3 JUAN RAMON (test code = 25 See_Comment [Auto mated 6651975595) message] The sy stem which generated this result transmitted reference range : 24 - 28 mEq/L. The reference range was not used to interpret this result as normal/abnormal . AC VBE(BEAKER) (test -1.6 mEq/L code = 3574070348) THB JUAN RAMON (test code = 14.8 g/dL 13.5-18.0 8889982604) %O2HB JUAN RAMON (test code = 74.1 % 52.0-63.0 H 7853075884) %COHB JUAN RAMON (test code = 1.2 % 0.0-1.5 8972206533) %METHB JUAN RAMON (test code = 0.2 % 0.4-1.5 L 2468181624) VOL%O2 JUAN RAMON (test code = 15.4 % 6.0-12.0 H 4059035638) NA (test code = 133 mmol/L 135-145 L 6233557824) K+ (test code = 9.3 mmol/L 3.5-5.0 HH 6776131732) AC CA IONZ (test code = 4.40 mg/dL 4.50-5.30 L 7471973176) GLUCOSE (test code = 138 mg/dL 70-110 H 3253113587) LACTIC ACID (test code 3.86 mmol/L 0.50-2.20 H QUES = 1101821150) Lab Interpretation Abnormal (test code = 94889-9) [facility] + LACTIC [id number] 18:14:49 Test Item Value Reference Range Interpretation Comments PH (test code = 7.34 7.32-7.42 8913718218) PCO2 JUAN RAMON (test code = 46 See_Comment [Auto mated 8122582769) message] The sy stem which generated this result transmitted reference range : 41 - 51 mmHg. The reference range was not used to interpret this result as normal/abnormal . PO2 JUAN RAMON (test code = 39 See_Comment [Autom ated 1798131361) message] The sy stem which generated this result transmitted reference range : 25 - 40 mmHg. The reference range was not used to interpret this result as normal/abnormal . HCO3 JUAN RAMON (test code = 25 See_Comment [Auto mated 1272971664) message] The sy stem which generated this result transmitted reference range : 24 - 28 mEq/L. The reference range was not used to interpret this result as normal/abnormal . AC VBE(BEAKER) (test -1.6 mEq/L code = 6556764762) THB JUAN RAMON (test code = 14.8 g/dL 13.5-18.0 0439083836) %O2HB JUAN RAMON (test code = 74.1 % 52.0-63.0 H 5598545263) %COHB JUAN RAMON (test code = 1.2 % 0.0-1.5 1099190548) %METHB JUAN RAMON (test code = 0.2 % 0.4-1.5 L 2366568095) VOL%O2 JUAN RAMON (test code = 15.4 % 6.0-12.0 H 7182786624) NA (test code = 133 mmol/L 135-145 L 8508866985) K+ (test code = 9.3 mmol/L 3.5-5.0 HH 9906630722) AC CA IONZ (test code = 4.40 mg/dL 4.50-5.30 L 8921633148) GLUCOSE (test code = 138 mg/dL 70-110 H 2344651659) LACTIC ACID (test code 3.86 mmol/L 0.50-2.20 H QUES = 5930673726) Lab Interpretation Abnormal (test code = 15019-6) [facility]LAB ONLY COVID [id number] 03:19:25COVID DMT InterpretationInterpretation/Recommendations: Molecular NAAT Tests for Active Infection with [...] COVID-19 testing the patient has had at [facility], including molecular NAAT testing (more commonly known as PCR testing and Rapid ID Now testing) and antibody testing. It does not take into account any testingthat a patient has had outside of the [facility] medical record. [facility] LABORATORY SERVICESCOVID OxuctqxPGIK-AoD-4 NAAT (no units) ? ? Date ? Value ? 02/12/2020 ? Not Detected ? ? ? 11/13/2019 ? Not Detected ? SARS-CoV-2 Rapid ID NOW (no units) ?? Date ? Value ? 11/26/2020 ? Not Detected ? [facility]OR[facility] SERVICESThe [facility]LAB ONLY COVID INTERPRETATION 2020-11-30 03:19:25COVID DMT InterpretationInterpretation/Recommendations: Molecular NAAT Tests for Active Infection with [...] of immunity, at this time the strength andduration of the antibody response is unknown. Interpretation Result Comments:These interpretation comments are based upon all COVID-19 testing the patient has had at [facility], including molecular NAAT testing (more commonly known as PCR testing and Rapid ID Now testing) and antibody testing. It does not take into account any testingthat a patient has had outside of the [facility] medical record. [facility] LABORATORY SERVICESCOVID VvgftazEACX-HcQ-1 NAAT (no units) ? ? Date ? Value ? 02/12/2020 ? Not Detected ? ? ? 11/13/2019 ? Not Detected ? SARS-CoV-2 Rapid ID NOW (no units) ?? Date ? Value ? 11/26/2020 ? Not Detected ? [facility] SERVICESThe [facility]LAB ONLY COVID INTERPRETATION 2020-11-30 03:19:25COVID DMT InterpretationInterpretation/Recommendations: Molecular NAAT Tests for Active Infection with [...] of immunity, at this time the strength andduration of the antibody response is unknown. Interpretation Result Comments:These interpretation comments are based upon all COVID-19 testing the patient has had at [facility], including molecular NAAT testing (more commonly known as PCR testing and Rapid ID Now testing) and antibody testing. It does not take into account any testingthat a patient has had outside of the [facility] medical record. [facility] LABORATORY SERVICESCOVID AfxegnhJFUG-WfA-6 NAAT (no units) ? ? Date ? Value ? 02/12/2020 ? Not Detected ? ? ? 11/13/2019 ? Not Detected ? SARS-CoV-2 Rapid ID NOW (no units) ?? Date ? Value ? 11/26/2020 ? Not Detected ? [facility] SERVICESUnGonz[facility] HospitalFL TIME OR (NON-REPORTABLE)2020-11-29 14:30:48These images do not require a Radiology diagnostic report.[facility] CampusCOVID-19 (ID NOW RAPID TESTING)2020-11-26 15:47:57 Test Item Value Reference Range Interpretation Comments SARS-CoV-2 Rapid ID NOW Not Detected Not Detected (test code = 37332-5) ALEC (test code = ALEC) ID NOW COVID-19 Assay is an isothermal nucleic acid amplification test intended for the qualitative detection of nucleic acid from SARS-CoV-2 viral RNA in nasopharyngeal (RETURN AGENT) specimens. It is used under Emergency Use [...] indicated. Lab Interpretation Normal (test code = 11196-9) [facility]COVID[facility] (ID NOW RAPID TESTING)2020-11-26 15:47:57 Test Item Value Reference Range Interpretation Comments SARS-CoV-2 Rapid ID NOW Not Detected Not Detected (test code = 33093-2) ALEC (test code = ALEC) ID NOW COVID-19 Assay is an isothermal nucleic acid amplification test intended for the qualitative detection of nucleic acid from SARS-CoV-2 viral RNA in nasopharyngeal (RETURN AGENT) specimens. It is used under Emergency Use [...] indicated. Lab Interpretation Normal (test code = 91847-0) [facility] (ID NOW RAPID TESTING)2020-11-26 15:47:57 Test Item Value Reference Range Interpretation Comments SARS-CoV-2 Rapid ID NOW Not Detected Not Detected (test code = 13188-4) ALEC (test code = ALEC) ID NOW COVID-19 Assay is an isothermal nucleic acid amplification test intended for the qualitative detection of nucleic acid from SARS-CoV-2 viral RNA in nasopharyngeal (RETURN AGENT) specimens. It is used under Emergency Use [...] indicated. Lab Interpretation Normal (test code = 94753-6) [facility] WITH [id number] 15:32:36 Test Item Value Reference Range Interpretation Comments WBC (test code = See_Comment H [Automated 4338-2) message] The system which generated this result [...] RDW-SD (test code = 42.5 fL 38.5-51.6 20731-1) RDW-CV (test code = 13.6 % 12.1-15.4 788-0) PLT (test code = See_Comment [Automated 777-3) message] The system which generated this result transmit sg reference range : 150 - 328 10*3/ ?L. The reference range was not u sed to interpret th is result as normal/abnormal . MPV (test code = 11.7 fL 9.8-13.0 79910-9) NRBC/100 WBC (test See_Comment [Automat ed code = 8719865394) message] The system which generated this result transmit sg reference range : 0.0 - 10.0 /100 WBCs. The reference range was not used to interpret this result as normal/abnormal . NRBC x10^3 (test code <0.01 See_Comment [Auto mated = 0694624682) message] The system which generated this result transmit sg reference range : 10*3/?L. The reference range was not used to interpret this result as normal/abnormal . GRAN MAT (NEUT) % 75.7 % (test code = 770-8) IMM GRAN % (test code 0.60 % = 7320517036) LYMPH % (test code = 12.6 % 736-9) MONO % (test code = 9.7 % 5905-5) EOS % (test code = 1.0 % 713-8) BASO % (test code = 0.4 % 706-2) GRAN MAT x10^3(ANC) 10.30 10*3/uL 1.99-6.95 H (test code = 1630205927) IMM GRAN x10^3 (test 0.08 10*3/uL 0.00-0.06 H code = 7950150436) LYMPH x10^3 (test code 1.71 10*3/uL 1.09-3.23 = 731-0) MONO x10^3 (test code 1.32 10*3/uL 0.36-1.02 H = 742-7) EOS x10^3 (test code = 0.14 10*3/uL 0.06-0.53 711-2) BASO x10^3 (test code 0.06 10*3/uL 0.01-0.09 = 704-7) Lab Interpretation Abnormal (test code = 07075-9) [facility] WITH [id number] 15:32:36 Test Item Value Reference Range Interpretation Comments WBC (test code = See_Comment H [Automated 1590-2) message] The system which generated this result transmit sg reference range : 4.20 - 10.70 10*3/?L. The reference range was not used to interpret this result as normal/abnormal . RBC (test code = See_Comment [Automated 089-8) message] The system which generated this result [...] RDW-SD (test code = 42.5 fL 38.5-51.6 61901-0) RDW-CV (test code = 13.6 % 12.1-15.4 788-0) PLT (test code = See_Comment [Automated 777-3) message] The system which generated this result transmit sg reference range : 150 - 328 10*3/ ?L. The reference range was not u sed to interpret th is result as normal/abnormal . MPV (test code = 11.7 fL 9.8-13.0 32963-6) NRBC/100 WBC (test See_Comment [Automat ed code = 5625303757) message] The system which generated this result transmit sg reference range : 0.0 - 10.0 /100 WBCs. The reference range was not used to interpret this result as normal/abnormal . NRBC x10^3 (test code <0.01 See_Comment [Auto mated = 5726893396) message] The system which generated this result transmit sg reference range : 10*3/?L. The reference range was not used to interpret this result as normal/abnormal . GRAN MAT (NEUT) % 75.7 % (test code = 770-8) IMM GRAN % (test code 0.60 % = 7470027659) LYMPH % (test code = 12.6 % 736-9) MONO % (test code = 9.7 % 5905-5) EOS % (test code = 1.0 % 713-8) BASO % (test code = 0.4 % 706-2) GRAN MAT x10^3(ANC) 10.30 10*3/uL 1.99-6.95 H (test code = 8488735943) IMM GRAN x10^3 (test 0.08 10*3/uL 0.00-0.06 H code = 3254152637) LYMPH x10^3 (test code 1.71 10*3/uL 1.09-3.23 = 731-0) MONO x10^3 (test code 1.32 10*3/uL 0.36-1.02 H = 742-7) EOS x10^3 (test code = 0.14 10*3/uL 0.06-0.53 711-2) BASO x10^3 (test code 0.06 10*3/uL 0.01-0.09 = 704-7) Lab Interpretation Abnormal (test code = 18980-9) [facility] WITH [id number] 15:32:36 Test Item Value Reference Range Interpretation Comments WBC (test code = See_Comment H [Automated 7090-2) message] The system which generated this result transmit sg reference range : 4.20 - 10.70 10*3/?L. The reference range was not used to interpret this result as normal/abnormal . RBC (test code = See_Comment [Automated 799-8) message] The system which generated this result [...] RDW-SD (test code = 42.5 fL 38.5-51.6 78893-1) RDW-CV (test code = 13.6 % 12.1-15.4 788-0) PLT (test code = See_Comment [Automated 777-3) message] The system which generated this result transmit sg reference range : 150 - 328 10*3/ ?L. The reference range was not u sed to interpret th is result as normal/abnormal . MPV (test code = 11.7 fL 9.8-13.0 35441-2) NRBC/100 WBC (test See_Comment [Automat ed code = 8301016248) message] The system which generated this result transmit sg reference range : 0.0 - 10.0 /100 WBCs. The reference range was not used to interpret this result as normal/abnormal . NRBC x10^3 (test code <0.01 See_Comment [Auto mated = 7683010985) message] The system which generated this result transmit sg reference range : 10*3/?L. The reference range was not used to interpret this result as normal/abnormal . GRAN MAT (NEUT) % 75.7 % (test code = 770-8) IMM GRAN % (test code 0.60 % = 2660426516) LYMPH % (test code = 12.6 % 736-9) MONO % (test code = 9.7 % 5905-5) EOS % (test code = 1.0 % 713-8) BASO % (test code = 0.4 % 706-2) GRAN MAT x10^3(ANC) 10.30 10*3/uL 1.99-6.95 H (test code = 6755273647) IMM GRAN x10^3 (test 0.08 10*3/uL 0.00-0.06 H code = 4038795235) LYMPH x10^3 (test code 1.71 10*3/uL 1.09-3.23 = 731-0) MONO x10^3 (test code 1.32 10*3/uL 0.36-1.02 H = 742-7) EOS x10^3 (test code = 0.14 10*3/uL 0.06-0.53 711-2) BASO x10^3 (test code 0.06 10*3/uL 0.01-0.09 = 704-7) Lab Interpretation Abnormal (test code = 66752-2) [facility], [id number] 20:50:00 Test Item Value Reference Range Interpretation [...] 3267) Lab Interpretation (test code Normal = 63399-4) [facility] URINALYSIS, [id number] 20:50:00 Test Item Value Reference Range Interpretation [...] 3267) Lab Interpretation (test code Normal = 80124-0) [facility] URINALYSIS, [id number] 20:50:00 Test Item Value Reference Range Interpretation [...] 3267) Lab Interpretation (test code Normal = 42322-9) [facility] WITH [id number] 15:31:00 Test Item Value Reference Range Interpretation Comments WBC (test code = See_Comment H [Automated 5130-2) message] The system which generated this result transmit sg reference range : 4.20 - 10.70 10*3/?L. The reference range was not used to interpret this result as normal/abnormal . RBC (test code = See_Comment [Automated 019-8) message] The system which generated this result [...] RDW-SD (test code = 46.5 fL 38.5-51.6 00717-1) RDW-CV (test code = 14.6 % 12.1-15.4 788-0) PLT (test code = See_Comment [Automated 777-3) message] The system which generated this result transmit sg reference range : 150 - 328 10*3/ ?L. The reference range was not u sed to interpret th is result as normal/abnormal . MPV (test code = 10.8 fL 9.8-13 56811-9) NRBC/100 WBC (test See_Comment [Automat ed code = 2173688658) message] The system which generated this result transmit sg reference range : 0.0 - 10.0 /100 WBCs. The reference range was not used to interpret this result as normal/abnormal . NRBC x10^3 (test code <0.01 See_Comment [Auto mated = 6479047088) message] The system which generated this result transmit sg reference range : 10*3/?L. The reference range was not used to interpret this result as normal/abnormal . GRAN MAT (NEUT) % 76.2 % (test code = 770-8) IMM GRAN % (test code 0.40 % = 9688963281) LYMPH % (test code = 12.6 % 736-9) MONO % (test code = 8.3 % 5905-5) EOS % (test code = 2.1 % 713-8) BASO % (test code = 0.4 % 706-2) GRAN MAT x10^3(ANC) 10.98 10*3/uL 1.99-6.95 H (test code = 6202175973) IMM GRAN x10^3 (test 0.06 10*3/uL 0-0.06 code = 4252727016) LYMPH x10^3 (test code 1.81 10*3/uL 1.09-3.23 = 731-0) MONO x10^3 (test code 1.20 10*3/uL 0.36-1.02 H = 742-7) EOS x10^3 (test code = 0.31 10*3/uL 0.06-0.53 711-2) BASO x10^3 (test code 0.06 10*3/uL 0.01-0.09 = 704-7) Lab Interpretation Abnormal (test code = 53470-5) [facility]"
[2023-05-19 01:15] LABS: Arterial Blood Carboxyhemoglob 2.4 % (0-1.5); Blood Gas Oxyhemoglobin 94.8 % (94-97); Blood O2 Saturation 98.8 % (92-98.5)
[2023-05-19 01:28] LABS: Absolute Lymphocytes (CBC) 1.2 K/uL (0.7-4.9); Hematocrit 35.2 % (39.6-49.0); Lymphocytes % 12.2 % (15.3-44.8); MCV 84.7 fL (80-100); MPV 9.6 fL (7.6-11.3); Platelets 193 thou/uL (152-406); RBC Red Blood Cell Count 4.16 M/uL (4.33-5.43)
[2023-05-19 01:37] LABS: Protime INR 1.26
[2023-05-19 01:47] LABS: Specific Gravity < 1.005 (1.005-1.030); Urine Bacteria None Seen /HPF (<20); Urine Bilirubin NEGATIVE (Negative); Urine Blood Negative (Negative); Urine Clarity Clear (Clear); Urine Color Colorless (Yellow); Urine Glucose NEGATIVE (Negative); Urine Protein 2+ (Negative); Urine RBC <5 /HPF (None Seen); Urine Urobilinogen Normal (Normal)
[2023-05-19 01:48] LABS: Albumin 2.9 g/dL (3.4-5.0); Bilirubin Total 0.6 mg/dL (0.2-1.0); Potassium 4.6 mEq/L (3.5-5.1); Troponin High Sensitivity 35.7 pg/mL (<58.9)
[2023-05-19] MEDS ORDERED: propofoL 1,000 MG/100 ML VIAL IV ONE ×2 (01:50→06:44)
[2023-05-19] MEDS ORDERED: AZITHROMYCIN 500 MG INJ IVPB ONE (02:09)
[2023-05-19] MEDS ORDERED: CEFTRIAXONE 1000 MG/VIAL ONE (02:09)
[2023-05-19] MEDS ORDERED: NA CHLORIDE 0.9% 250 ML ONE (02:10)
[2023-05-19] MEDS ORDERED: NA CHLORIDE 0.9% 1,000 ML ONE (02:10)
[2023-05-19] MEDS ORDERED: HYDROMORPHONE HCL 1 MG/ML INJ ONE (02:27)
[2023-05-19 03:09] LABS: Arterial Blood Carboxyhemoglob 2.4 % (0-1.5); Blood Gas Oxyhemoglobin 94.9 % (94-97); Blood O2 Saturation 98.9 % (92-98.5)
[2023-05-19] MEDS ORDERED: FENTANYL CITR 100 MCG/2 ML ONE ×2 (03:18→05:45)
--- NOTE | 2023-05-19 03:57 | ER ---
Nurse's Notes [facility] Name: Lauri Redmond Age: 47 yrs Sex: Male : 1975 Arrival Date: 05/19/2023 Time: 00:59 Bed 4 Private MD: Diagnosis: Acute respiratory failure with hypercapnia;Acute pulmonary edema;Acidosis Presentation: 05/19 01:02 Chief complaint: EMS states: initially called for respi distress, pt became rv unresponsive and stopped breathing, intubated with size 8.0 level 25 at teeth, pt was given 125 solu medrol, versed 10mg, fentanyl 100mcg, and vecoronium 10mg. Coronavirus screen: At this time, the client does not indicate any symptoms associated with coronavirus-19. Ebola Screen: No symptoms or risks identified at this time. Initial Sepsis Screen: Does the patient meet any 2 criteria? No. Patient's initial sepsis screen is negative. Does the patient have a suspected source of infection? No. Patient's initial sepsis screen is negative. Risk Assessment: Do you want to hurt yourself or someone else? Patient reports no desire to harm self or others. Onset of symptoms was May 19, 2023. 01:02 Method Of Arrival: EMS: [facility] rv 01:02 Acuity: NORMA 1 rv Triage Assessment: 01:04 General: Appears unkempt, Behavior is unresponsive. Pain: Unable to use pain scale. rv Patient is unresponsive. Neuro: Level of Consciousness is unresponsive. Cardiovascular: Rhythm is sinus tachycardia. Respiratory: Airway via oral intubation. Historical: - Allergies: 01:04 Hydrocodone-Acetaminophen; rv 01:04 Lortab; rv 01:04 Tylenol; rv 01:04 Vicodin; rv - PMHx: 01:04 Back pain; Hypertension; rv - Immunization history:: Adult Immunizations unknown. - Social history:: Smoking status: unknown. - History obtained from: EMS. - Unable to obtain history due to: unresponsive. patient is on ventilator. Screenin:00 [facility] ED Fall Risk Assessment (Adult) History of falling in the last 3 months, jb4 including since admission No falls in past 3 months (0 pts) Intoxicated or Sedated Yes (3 pts) Score/Fall Risk Level 3 or more points = High Risk. Abuse screen: Denies threats or abuse. Nutritional screening: No deficits noted. Tuberculosis screening: No symptoms or risk factors identified. Assessment: 02:25 Reassessment: Pt remains intubated and sedated. Pt to CT scan. IV infusions continue jb4 without issue. 03:00 Reassessment: Patient appears in no apparent distress at this time. No changes from jb4 previously documented assessment. Patient and/or family updated on plan of care and expected duration. Pain level reassessed. 04:00 Reassessment: Patient appears in no apparent distress at this time. No changes from jb4 previously documented assessment. Patient and/or family updated on plan of care and expected duration. Pain level reassessed. 05:00 Reassessment: Pt resting peacefully in bed eyes closed, remains intubated. Propofol jb4 infusing without issue. 05:35 Reassessment: Pt becoming more agitated. trying to get free of restraints. Bolused 50 jb4 mg of propofol, rate changed to 25mcg/kg/hr. Received verbal order for 75mcg of fentynal, and 2mg of versed. 06:50 Reassessment: Pt remains intubated. transferred out by EMS to receiving facility. jb4 Vital Signs: 01:02 BP 133 / 92; Pulse 102; Pulse Ox 100% on ETT ambu; FiO2 100 %; rv 01:41 Weight 92.5 kg (M); jb4 02:00 BP 131 / 89; Pulse 104; Resp 20; Pulse Ox 99% on ETT vent; jb4 02:30 BP 127 / 93; Pulse 97; Resp 20; Pulse Ox 99% on ETT vent; jb4 03:00 BP 130 / 88; Pulse 91; Resp 21; Pulse Ox 99% on ETT vent; jb4 03:45 BP 102 / 66; Pulse 78; Resp 21; Pulse Ox 98% on ETT vent; jb4 04:15 BP 102 / 68; Pulse 71; Resp 21; Temp 98.1(TE); Pulse Ox 97% on ETT vent; jb4 04:15 Temp 96.7(Ca); jb4 05:00 BP 116 / 78; Pulse 73; Resp 21; Temp 96.7(Ca); Pulse Ox 95% on ETT vent; jb4 05:45 BP 123 / 78; Pulse 73; Resp 20; Temp 97.2; Pulse Ox 95% on ETT vent; FiO2 45 %; jb4 06:15 BP 112 / 69; Pulse 74; Resp 20; Temp 97.4(Ca); Pulse Ox 95% on ETT vent; FiO2 45 %; jb4 04:15 Pt placed on bear hugger warming blanket jb4 ED Course: 01:00 Patient arrived in ED. rn 01:00 Yehuda Vasquez MD is Attending Physician. rn 01:02 Phong Gallegos, RN is Primary Nurse. rv 01:04 Triage completed. rv 01:04 Arm band placed on right wrist. rv 01:05 Patient has correct armband on for positive identification. Placed in gown. Bed in low jb4 position. Call light in reach. Side rails up X 1. Client placed on continuous cardiac and pulse oximetry monitoring. NIBP monitoring applied. hall monitor on. 01:51 Chest Single View XRAY In Process Unspecified. EDMS 02:25 Ata Li, RN is Primary Nurse. jb4 02:41 CT Head Brain wo Cont In Process Unspecified. EDMS 02:41 Thorax Wo Con In Process Unspecified. EDMS 04:05 Initiated transfer to [facility], spoke with Elena Chacon. wm 04:52 Pt accepted for transfer to [facility] by Dr. Carrillo to [id number]. wm 05:10 [facility] accepted for transport eta \T\ 0630. wm 05:52 No provider procedures requiring assistance completed. Patient transferred, IV remains jb4 in place. Restraints: 01:15 Non-Violent Restraint: Order obtained. Initiated on May 19, 2023 at 01:15 Clinical jb4 justification for use: airway protection, line protection, patient safety, Restraint status: Side rails up x 4 Started. Soft wrist restraint (Right) Started. Soft wrist restraint (Left) Started. 02:15 Non-Violent Restraint: Circulation: Within defined parameters (based on Cardiovascular jb4 assessment) Skin integrity: Within defined parameters (based on Integumentary assessment) Signs of injury related to restraint: No injuries noted. Restraint status: Side rails up x 4 Continued. Soft wrist restraint (Right) Continued. Soft wrist restraint (Left) Continued. 04:15 Non-Violent Restraint: Circulation: Within defined parameters (based on Cardiovascular jb4 assessment) Skin integrity: Within defined parameters (based on Integumentary assessment) Signs of injury related to restraint: No injuries noted. Restraint status: Side rails up x 4 Continued. Soft wrist restraint (Right) Continued. Soft wrist restraint (Left) Continued. 06:15 Non-Violent Restraint: Circulation: Within defined parameters (based on Cardiovascular jb4 assessment) Skin integrity: Within defined parameters (based on Integumentary assessment) Signs of injury related to restraint: No injuries noted. Restraint status: Side rails up x 4 Continued. Soft wrist restraint (Right) Continued. Soft wrist restraint (Left) Continued. Administered Medications: 01:42 Drug: Propofol IV 5 mcg/kg/min IV at calculated rate See Administration Instructions; jb4 Standard concentration 1000 mg / 100 mL; Recommended max rate 50 mcg/kg/min; Titrate 2 mcg/kg/min every 5 minutes to achieve goal (see titration policy); Goal parameter RASS score 0 to -2 Route: IV; Rate: calculated rate; Site: right antecubital; 02:00 Follow up: Rate change 10 mcg/kg/min jb4 02:15 Follow up: Rate change 15 mcg/kg/min jb4 02:20 Drug: Rocephin IV 1 grams IV at calculated rate once; Given slow IV push per pharmacy pf1 instructions Route: IV; Rate: calculated rate; Site: Other; 03:09 Drug: fentaNYL (PF) IVP 75 mcg IVP once Route: IVP; Site: right femoral; jb4 03:16 Drug: Zithromax IVPB 500 mg IVPB once over 1 hrs; mix in 250 mL NS Route: IVPB; Infused jb4 Over: 1 hrs; Site: right femoral; 03:16 Drug: NS 0.9% IV 1000 ml IV at 1000 ml once Route: IV; Rate: 1000 ml; Site: right jb4 femoral; 05:42 Drug: Midazolam IVP or IV 2 mg IVP once Route: IVP; Site: right femoral; jb4 05:43 Drug: fentaNYL (PF) IVP 75 mcg IVP once Route: IVP; Site: right femoral; jb4 Outcome: 03:57 ER care complete, transfer ordered by MD. milan 07:03 Transferred by ground EMS to [facility], Transfer form completed. jb4 X-rays sent w/ patient. 07:03 Condition: stable 07:03 Patient left the ED. jb4 Signatures: Dispatcher [employer] EDMS Pedro, Yehuda, MD MD rn Fingal, Ata RN RN jb4 Phong Gallegos RN RN Kisha Fatima Pamala, RN RN pf1
--- NOTE | 2023-05-19 03:57 | EDPHYS ---
Physician Documentation [facility] Name: Lauri Redmond Age: 47 yrs Sex: Male : 1975 Arrival Date: 05/19/2023 Time: 00:59 Bed 4 Private MD: ED Physician Yehuda Vasquez HPI: 05/19 02:16 This 47 yrs old Male presents to ER via EMS with complaints of respiratory distress. rn 02:16 Unable to obtain HPI due to Intubated prior to arrival. EMS reports called out for rn shortness of breath, patient was agitated and could not breathe and exhibiting altered mental status. EMS made the decision for rapid sequence intubation, intubated prior to arrival successfully, reports CO2 monitor showing 99 or higher. Patient intubated with vecuronium, Versed, fentanyl. No history otherwise given by EMS.. Historical: - Allergies: 01:04 Hydrocodone-Acetaminophen; rv 01:04 Lortab; rv 01:04 Tylenol; rv 01:04 Vicodin; rv - PMHx: 01:04 Back pain; Hypertension; rv - Immunization history:: Adult Immunizations unknown. - Social history:: Smoking status: unknown. - History obtained from: EMS. - Unable to obtain history due to: unresponsive. patient is on ventilator. ROS: 02:16 Unable to obtain ROS due to patient is on ventilator, rn Exam: 02:16 Constitutional: Well developed patient unresponsive and intubated Head/Face: rn Normocephalic, atraumatic. Cardiovascular: Tachycardic, regular. No pulse deficits. Respiratory: Coarse bilateral breath sounds with bagging Abdomen/GI: Soft, non-tender, nondistended Skin: Warm, dry MS/ Extremity: Pulses equal, no cyanosis. Neuro: GCS 3, intubated Vital Signs: 01:02 BP 133 / 92; Pulse 102; Pulse Ox 100% on ETT ambu; FiO2 100 %; rv 01:41 Weight 92.5 kg (M); jb4 02:00 BP 131 / 89; Pulse 104; Resp 20; Pulse Ox 99% on ETT vent; jb4 02:30 BP 127 / 93; Pulse 97; Resp 20; Pulse Ox 99% on ETT vent; jb4 03:00 BP 130 / 88; Pulse 91; Resp 21; Pulse Ox 99% on ETT vent; jb4 03:45 BP 102 / 66; Pulse 78; Resp 21; Pulse Ox 98% on ETT vent; jb4 04:15 BP 102 / 68; Pulse 71; Resp 21; Temp 98.1(TE); Pulse Ox 97% on ETT vent; jb4 04:15 Temp 96.7(Ca); jb4 05:00 BP 116 / 78; Pulse 73; Resp 21; Temp 96.7(Ca); Pulse Ox 95% on ETT vent; jb4 05:45 BP 123 / 78; Pulse 73; Resp 20; Temp 97.2; Pulse Ox 95% on ETT vent; FiO2 45 %; jb4 06:15 BP 112 / 69; Pulse 74; Resp 20; Temp 97.4(Ca); Pulse Ox 95% on ETT vent; FiO2 45 %; jb4 04:15 Pt placed on bear hugger warming blanket jb4 Procedures: 01:23 Central Line: the site was prepped with Betadine, in sterile fashion, a triple lumen rn catheter was inserted, in the right femoral vein, in 1 attempts. placement was verified, by blood return, the site was dressed with Tegaderm, using sterile technique, the patient tolerated the procedure, well. MDM: 01:00 Patient medically screened. rn 03:14 ED course: Repeat ABG shows improvement with decrease in CO2 and increase in pH. rn 03:54 Differential diagnosis: Myocardial Infarction pneumonia, Pneumothorax pulmonary edema, rn Pulmonary Embolism Sepsis. Data reviewed: vital signs, nurses notes, lab test result(s), EKG, radiologic studies, CT scan, plain films, and as a result, I will admit patient. Consideration of Admission/Observation Patient was admitted/placed on observation. Escalation of care including admission/observation considered. I considered the following discharge prescriptions or medication management in the emergency department Medications were administered in the Emergency Department. See MAR. Independent interpretation of the following test(s) in the Emergency Department EKG: See my EKG interpretation above X-Ray: My interpretation is Chest x-ray images showed diffuse infiltrate/pulmonary edema per my interpretation. Counseling: I had a detailed discussion with the patient and/or guardian regarding the historical points, exam findings, and any diagnostic results supporting the discharge/admit diagnosis, lab results, radiology results, the need for further work-up and treatment in the hospital, the need to transfer to another facility, for higher level of care. ED course: I personally spent 75 minutes engaged in work directly related to the individual patient's care. This does not include any time spent performing procedures. The patient has been deemed critically ill because of acute respiratory failure requiring intubation, respiratory acidosis, possible sepsis versus cardiac etiology, review of previous EKGs and organize transfer of patient for higher level of care. 05:02 ED course: Patient's ECG shows new biphasic and inverted T waves in the lateral leads, rn different from previous. Troponin returned negative.. 05/19 01:02 Order name: Blood Culture Adult (2) rn 05/19 01:02 Order name: CBC with Diff; Complete Time: :50 05/19 01:02 Order name: CMP; Complete Time: 05/19 01:02 Order name: Lactate w/ 2H reflex if indic.; Complete Time: :58 05/19 01:02 Order name: Protime (+inr); Complete Time: : 05/19 01:02 Order name: Ptt, Activated; Complete Time: : rn 05/19 01:02 Order name: Urinalysis w/ reflexes; Complete Time: : rn 05/19 01:02 Order name: ABG; Complete Time: : rn 05/19 01:02 Order name: Troponin High Sensitivity; Complete Time: : rn 05/19 01:02 Order name: BNP; Complete Time: :50 05/19 01:02 Order name: SARS-COV-2 RT PCR; Complete Time: :58 rn 05/19 01:02 Order name: Flu; Complete Time: : rn 05/19 03:10 Order name: ABG Arterial Blood Gas; Complete Time: 03:16 EDMS 05/19 04:32 Order name: Lactate Sepsis 2 HR Follow-up; Complete Time: 04:42 EDMS 05/19 01:02 Order name: Chest Single View XRAY rn 05/19 01:02 Order name: CT Head Brain wo Cont rn 05/19 02:11 Order name: Thorax Wo Con EDMS 05/19 01:02 Order name: EKG; Complete Time: 01:03 rn 05/19 01:02 Order name: Accucheck; Complete Time: 01:30 rn 05/19 01:02 Order name: Cardiac monitoring; Complete Time: : rn 05/19 01:02 Order name: EKG - Nurse/Tech; Complete Time: : rn 05/19 01:02 Order name: IV Saline Lock - Large Bore; Complete Time: : rn 05/19 01:02 Order name: Labs collected and sent; Complete Time: : rn 05/19 01:02 Order name: O2 Per Protocol; Complete Time: : rn 05/19 01:02 Order name: O2 Sat Monitoring; Complete Time: : rn 05/19 01:02 Order name: Vital Signs; Complete Time: rn 05/19 05:55 Order name: Restraint:Non-Violent; Complete Time: 05:56 jb4 Administered Medications: 01:42 Drug: Propofol IV 5 mcg/kg/min IV at calculated rate See Administration Instructions; jb4 Standard concentration 1000 mg / 100 mL; Recommended max rate 50 mcg/kg/min; Titrate 2 mcg/kg/min every 5 minutes to achieve goal (see titration policy); Goal parameter RASS score 0 to -2 Route: IV; Rate: calculated rate; Site: right antecubital; 02:00 Follow up: Rate change 10 mcg/kg/min jb4 02:15 Follow up: Rate change 15 mcg/kg/min jb4 02:20 Drug: Rocephin IV 1 grams IV at calculated rate once; Given slow IV push per pharmacy pf1 instructions Route: IV; Rate: calculated rate; Site: Other; 03:09 Drug: fentaNYL (PF) IVP 75 mcg IVP once Route: IVP; Site: right femoral; jb4 03:16 Drug: Zithromax IVPB 500 mg IVPB once over 1 hrs; mix in 250 mL NS Route: IVPB; Infused jb4 Over: 1 hrs; Site: right femoral; 03:16 Drug: NS 0.9% IV 1000 ml IV at 1000 ml once Route: IV; Rate: 1000 ml; Site: right jb4 femoral; 05:42 Drug: Midazolam IVP or IV 2 mg IVP once Route: IVP; Site: right femoral; jb4 05:43 Drug: fentaNYL (PF) IVP 75 mcg IVP once Route: IVP; Site: right femoral; jb4 Disposition: 03:54 Critical Care:. rn Disposition Summary: 05/19/23 03:57 Transfer Ordered Notes: Transfer Location: [facility] rn Reason: Higher level of care rn Condition: Stable rn Problem: new rn Symptoms: have improved rn Accepting Physician: (05/19/23 07:03) jb4 Diagnosis - Acute respiratory failure with hypercapnia rn - Acute pulmonary edema rn - Acidosis rn Forms: - Medication Reconciliation Form rn - SBAR form rn navigator time excluding procedures: 03:54 Critical care time: Bedside Care: 75 minutes. Total time: 75 minutes rn Signatures: Dispatcher [employer] EDUT Yehuda Vasquez MD MD rn Bryson, James RN RN jb4 Phong Gallegos RN RN rv Carla Pacheco RN RN pf1 Corrections: (The following items were deleted from the chart) 02:11 01:03 Chest For PE Angio+CT.RAD.BRZ ordered. [facility] EDMS 07:03 03:57 rn jb4
[2023-05-19] MEDS ORDERED: MIDAZOLAM HCL 2 MG/2 ML INJ ONE (05:45)
[2023-05-19 07:15] VITALS: O2SAT 95
[2023-05-19 07:18] VITALS: BP 112/69; TEMP 97.4
--- NOTE | 2023-05-19 20:35 | RAD REPORT ---
EXAM DESCRIPTION: CT - Head Brain Wo Cont - 05/19/2023 6:48 am CLINICAL HISTORY: The patient is 47 years old and is Male; unresponsive, intubated [facility] MAIN TECHNIQUE: Axial computed tomography images of the head/brain without intravenous contrast. Sagitt al and coronal reformatted images were created and reviewed. This CT exam was performed using one o r more of the following dose reduction techniques: automated exposure control, adjustment of the mA and/or kV according to patient size, and/or use of iterative reconstruction technique. COMPARISON: 08/08/2019 CT head without contrast FINDINGS: BRAIN: Multiple small white matter low-attenuation foci involving right and anterior lef t periventricular deep white matter, new or increased in conspicuity compared to prior exam. 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 No midline shift or transtentorial herniation. No abnormal supratentorial extra-axial fluid collection. No acute montejo-white matter differentiation abnormality. No acute intracranial hemorrhage. VENTRICLES: Slight increased prominence of the bilateral posterior left and right ventricular horns c ompared to 2019 exam. No abnormal intratesticular mass or hemorrhage. BONES/JOINTS: Unremarkable. No acute fracture. SOFT TISSUES: Unremarkable. SINUSES: Partial opacification of the left ethmoid air cells and nasal cavity. MASTOID AIR CELLS: Unremarkable as visualized. No mastoid effusion. TUBES, LINES AND DEVICES: Partially visualized ETT and nasogastric tube. IMPRESSION: 1. Multiple indeterminate hypoattenuating foci involving the right and anterior left p eriventricular deep white matter, new or increased in conspicuity compared to prior exam. Otherwise , no acute intracranial abnormality. Nonspecific and could reflect white matter infarctions, sequela of migraines, demyelination, or other inflammatory etiology. Consider further evaluation by brain MRI to better characterize these white matter findings. 2. Otherwise, no acute intracranial abnormality. Electronically signed by: Lalo Schaefer MD 05/19/2023 3:31 AM CDT Due to temporary technical issues with the PACS/Fluency reporting system, reports are being signed by the in house radiologists without review as a courtesy to insure prompt reporting. The interpreting radiologist is fully responsible for the content of the report.
--- NOTE | 2023-05-19 20:37 | RAD REPORT ---
EXAM DESCRIPTION: CT - Thorax Roman Bowman - 05/19/2023 6:48 am CLINICAL HISTORY: The patient is 47 years old and is Male; resp failure, intubated [facility] MAIN TECHNIQUE: Axial computed tomography images of the chest without intravenous contrast. Sagittal an d coronal reformatted images were created and reviewed. This CT exam was performed using one or mor e of the following dose reduction techniques: automated exposure control, adjustment of the mA and/ or kV according to patient size, and/or use of iterative reconstruction technique. COMPARISON: No relevant prior studies available. FINDINGS: LUNGS: Diffuse groundglass opacities throughout the bilateral lung parenchyma with scatt ered geographic areas of air trapping or bolus lung changes in the lateral inferior right upper lobe and right lower lobe superior segments. No dense focal consolidation. PLEURAL SPACE: Trace bilateral pleural effusions, right greater than left. No pneumothorax. HEART: Heart size upper limits of normal with small pericardial effusion. No significant coronary artery calcifications. MEDIASTINUM: Reactive appearing mediastinal lymphadenopathy with no overtly pathologic lymph node o r mediastinal mass appreciated. BONES/JOINTS: Age-indeterminate nondisplaced, nondepressed fracture of the lateral right ninth rib. No dislocation. SOFT TISSUES: Unremarkable. VASCULATURE: Unremarkable. No thoracic aortic aneurysm. LYMPH NODES: See below. GALLBLADDER AND BILE DUCTS: Cholecystectomy. SPLEEN: Multiple calcified granuloma demonstrated throughout the splenic parenchyma, as well as wit hin the right hilar and subcarinal lymph nodes and in the right lower lobe. TUBES, LINES AND DEVICES: The endotracheal tube (ETT) is in satisfactory position. Enteric tube tip in the stomach. OTHER FINDINGS: Diffuse bilateral smooth interseptal thickening. IMPRESSION: 1. "Crazy painting" appearance of the lungs with smooth interseptal thickening and dif fuse groundglass opacities. Findings are nonspecific, but can be seen with diffuse pulmonary edema, a cute respiratory distress syndrome, acute interstitial or atypical pneumonia (such as Covid 19), or o ther inflammatory processes such as drug-induced pneumonitis. Clinical correlation recommended. 2. Trace bilateral pleural effusions, right greater than left. 3. Age-indeterminate nondisplaced, nondepressed fracture of the lateral right ninth rib. No defin ite acute osseous abnormality. Electronically signed by: Lalo Schaefer MD 05/19/2023 3:40 AM CDT Due to temporary technical issues with the PACS/Fluency reporting system, reports are being signed by the in house radiologists without review as a courtesy to insure prompt reporting. The interpreting radiologist is fully responsible for the content of the report.
--- NOTE | 2023-05-19 20:39 | RAD REPORT ---
EXAM DESCRIPTION: RAD - Chest Single View - 05/19/2023 1:49 am CLINICAL HISTORY: DYSPNEA COMPARISON: 04/29/2023 FINDINGS: Single frontal view of the chest. Tubes and lines: Endotracheal tube with tip 4 cm above the shaylee. NG tube with tip just within the s tomach. Side-port is at the level of the gastroesophageal junction.. Cardiomediastinal silhouette: Heart is not enlarged. Lungs: Diffuse bilateral interstitial opacities. No pneumothorax. No definite pleural effusion. Bones: Degenerative change of the spine. Upper abdomen: No additional findings. IMPRESSION: 1. Endotracheal tube in appropriate position. 2. NG tube with tip just within the stomach. Consider advancing 5 to 10 cm. 3. Diffuse bilateral interstitial opacities. Findings could be seen with pulmonary edema or acute i nterstitial pneumonic process. Electronically signed by: David Mtz 05/19/2023 2:21 AM CDT Due to temporary technical issues with the PACS/Fluency reporting system, reports are being signed by the in house radiologists without review as a courtesy to insure prompt reporting. The interpreting radiologist is fully responsible for the content of the report
--- NOTE | 2023-05-22 08:00 | EKG ---
Test Date: 2023-05-19 Test Time: 02:50:34 Language Tutor: JUAN MEASUREMENT RESULTS: Intervals: Rate: 92 FL: 156 QRSD: 92 QT: 364 QTc: 450 [place]: P: 84 FL: 156 QRS: 88 T: 93 INTERPRETIVE STATEMENTS: Normal sinus rhythm Marked T wave abnormality, consider lateral ischemia Abnormal ECG Compared to ECG 04/29/2023 02:44:13 T-wave abnormality now present Possible ischemia now present Sinus tachycardia no longer present Myocardial infarct finding no longer present Electronically Signed On 05-22-23 07:53:38 CDT by Dat Hamilton
--- NOTE | 2023-05-22 08:00 | EKG ---
Test Date: 2023-05-19 Test Time: 03:36:55 Merchant Seaman: MINGO MEASUREMENT RESULTS: Intervals: Rate: 83 VT: 162 QRSD: 90 QT: 402 QTc: 472 [place]: P: 85 VT: 162 QRS: 76 T: 108 INTERPRETIVE STATEMENTS: Normal sinus rhythm Possible Left atrial enlargement T wave abnormality, consider lateral ischemia Prolonged QT Abnormal ECG Compared to ECG 05/19/2023 02:50:34 Prolonged QT interval now present T-wave abnormality still present Possible ischemia still present Electronically Signed On 05-22-23 07:53:35 CDT by Dat Hamilton
== END 2023-05-19 07:03 | disposition short-term general hospital (02) ==
LOC: ER 00:59
PROC: 06HM33Z Insertion of Infusion Device into Right Femoral Vein, Percutaneous Approach (ICD-10-PCS; principal; 2023-05-19)
DX: J96.02 Acute respiratory failure with hypercapnia (principal); J81.0 Acute pulmonary edema; E87.20 Acidosis, unspecified; I10 Essential (primary) hypertension; Z11.52 Encounter for screening for COVID-19; Z88.5 Allergy status to narcotic agent; Z88.6 Allergy status to analgesic agent
CPT/HCPCS: 93005 ×2; 87040 ×2; 85025; 81001; 36415; 85610; 83605 ×2; 85730; 84484; 80053; 83880; 87635; 87804 ×2; 70450; 71250; 71045; 82805 ×2; 99291; 99292; 36600 ×2; 94002; 94003; 36556; J2704 ×2; J2250; J3010 ×2; J7050; J7030; J0696; J1170

== ENCOUNTER 2023-06-28 08:10 | Inpatient (IN) | payer OTHER ==
[2023-06-28 08:50] LABS: Hematocrit 25.4 % (39.6-49.0); Lymphocytes % 13.1 % (15.3-44.8); MCV 83.4 fL (80-100); MPV 9.4 fL (7.6-11.3); Platelets 162 thou/uL (152-406); RBC Red Blood Cell Count 3.05 M/uL (4.33-5.43)
[2023-06-28 08:53] LABS: Protime INR 2.15
[2023-06-28 09:08] LABS: SARS-CoV-2 Antigen Rapid Res Negative (Negative)
--- NOTE | 2023-06-28 09:09 | RAD REPORT ---
EXAM DESCRIPTION: [place] Single View06/28/2023 8:44 am CLINICAL HISTORY: Shortness of breath COMPARISON: April 2023 FINDINGS: Moderate bilateral pulmonary opacities. Small pleural effusions Heart is mildly to moderately enlarged IMPRESSION: These findings most likely represent CHF
[2023-06-28 09:10] LABS: Albumin 3.1 g/dL (3.4-5.0); Bilirubin Direct 0.2 mg/dL (0-0.2); Bilirubin Indirect, Calculated 0.4 mg/dL (0.2-0.8); Bilirubin Total 0.6 mg/dL (0.2-1.0); Magnesium 1.6 mg/dL (1.6-2.4); Potassium 3.7 mEq/L (3.5-5.1); Protein, Total 6.8 g/dL (6.4-8.2); Troponin High Sensitivity 34.1 pg/mL (<58.9)
[2023-06-28 09:28] LABS: Arterial Blood Carboxyhemoglob 1.8 % (0-1.5); Blood Gas Oxyhemoglobin 86.4 % (94-97); Blood O2 Saturation 89.5 % (92-98.5)
--- NOTE | 2023-06-28 10:10 | ER ---
Nurse's Notes Formerly [facility] Name: Lauri Redmond Age: 47 yrs Sex: Male : 1975 Arrival Date: 06/28/2023 Time: 08:10 Bed 4 Private MD: Diagnosis: Dyspnea, congestive heart failure, peripheral edema Presentation: 06/28 08:22 Chief complaint: Patient states: difficulty breathing started yesterday, hx of COPD , iw 88% RA. Coronavirus screen: Client presents with at least one sign or symptom that may indicate coronavirus-19. Ebola Screen: Patient negative for fever greater than or equal to 101.5 degrees Fahrenheit, and additional compatible Ebola Virus Disease symptoms Patient denies exposure to infectious person. Patient denies travel to an Ebola-affected area in the 21 days before illness onset. No symptoms or risks identified at this time. Initial Sepsis Screen: Does the patient meet any 2 criteria? No. Patient's initial sepsis screen is negative. Does the patient have a suspected source of infection? No. Patient's initial sepsis screen is negative. Risk Assessment: Do you want to hurt yourself or someone else? Patient reports no desire to harm self or others. Onset of symptoms was June 27, 2023. 08:22 Method Of Arrival: Wheelchair iw 08:22 Acuity: NORMA 3 iw Historical: - Allergies: 08:23 Hydrocodone-Acetaminophen; iw 08:23 Lortab; iw 08:23 Tylenol; iw 08:23 Vicodin; iw - Home Meds: 08:26 prednisone 20 mg Oral tablet daily [Active]; isosorbide dinitrate 10 mg Oral tablet 2 iw times per day [Active]; Eliquis 5 mg oral tablet 2 times per day [Active]; hydralazine 100 mg Oral tablet 3 times per day [Active]; aspirin 81 mg Oral capsule daily [Active]; - PMHx: 08:23 Back pain; Hypertension; iw - Immunization history:: Adult Immunizations up to date. - Social history:: Smoking status: Patient/guardian denies using tobacco, Stopped _ months ago 1. Screenin:26 [facility] ED Fall Risk Assessment (Adult) History of falling in the last 3 months, kc6 including since admission No falls in past 3 months (0 pts) Confusion or Disorientation No (0 pts) Intoxicated or Sedated No (0 pts) Impaired Gait No (0 pts) Mobility Assist Device Used No (0 pt) Altered Elimination No (0 pt) Score/Fall Risk Level 0 - 2 = Low Risk. Abuse screen: Denies threats or abuse. Denies injuries from another. Nutritional screening: No deficits noted. Tuberculosis screening: No symptoms or risk factors identified. Assessment: 08:45 General: Appears uncomfortable, Behavior is cooperative, appropriate for age, flat. ll1 Pain: Denies pain. Cardiovascular: Rhythm is regular. Respiratory: Reports shortness of breath labored breathing Airway is patent Respiratory effort is even, unlabored. 09:40 Reassessment: No changes from previously documented assessment. ll1 10:15 Reassessment: No changes from previously documented assessment. Daughter notified of ll1 admission. No questions at this time. 12:00 Reassessment: [email or web address]. mb9 Vital Signs: 08:20 Resp 22; Pulse Ox 88% on R/A; iw 08:30 BP 146 / 96; Pulse 86; Pulse Ox 95% on 3 lpm NC; ll1 08:45 Temp 97(TE); ll1 09:45 BP 134 / 92; Pulse 70; Resp 20; Pulse Ox 94% on 3 lpm NC; ll1 10:37 BP 149 / 99; Pulse 81; Resp 18; Pulse Ox 96% on 2 lpm NC; mb9 10:40 Weight 90.72 kg; Height 5 ft. 11 in. ; mb9 10:40 Body Mass Index 27.89 (90.72 kg, 180.34 cm) mb9 ED Course: 08:12 Patient arrived in ED. em1 08:[address] MD is Attending Physician. sp3 08:23 Triage completed. iw 08:24 Denae Morales, REMY is Primary Nurse. ll1 08:24 Arm band placed on. iw 08:26 Inserted saline lock: 20 gauge in right antecubital area, using aseptic technique. kc6 Blood collected. Oxygen administration via nasal cannula \T\ 3L/min. 08:27 Patient has correct armband on for positive identification. Bed in low position. Call kc6 light in reach. Side rails up X2. Client placed on continuous cardiac and pulse oximetry monitoring. NIBP monitoring applied. 08:45 Flu Sent. ll1 08:45 SARS RAPID Sent. ll1 08:45 Lactate w/ 2H reflex if indic. Sent. ll1 08:46 XRAY Chest (1 view) In Process Unspecified. EDMS 08:46 Provided Education on: ER process and procedures. ll1 10:09 James Vasquez MD is Hospitalizing Provider. sp3 10:37 No provider procedures requiring assistance completed. Patient admitted, IV remains in mb9 place. Administered Medications: 10:13 Drug: Furosemide IVP 40 mg IVP once; give over 2 minutes Route: IVP; Site: right [facility] antecubital; 10:40 Follow up: Response: No adverse reaction mb9 Medication: 08:31 VIS not applicable for this client. ll1 Outcome: 10:09 Decision to Hospitalize by Provider. sp3 17:11 Admitted to Med/surg room 214, with chart, Report called to Meghan. ALBERTO mb9 17:11 Condition: stable 17:21 Patient left the ED. mb9 Signatures: Dispatcher [employer] EDLida Dey, RN Baldev Macias em1 Denae Morales RN RN ll1 Len Lane MD MD sp3 Dania Waldrop RN RN kc6 My Eubanks RN RN mb9 Corrections: (The following items were deleted from the chart) 08:48 08:47 Home Meds: Eliquis 5 mg oral tablet 1 tab once; 1 ll1
--- NOTE | 2023-06-28 10:10 | EDPHYS ---
Physician Documentation [facility] Name: Lauri Redmond Age: 47 yrs Sex: Male : 1975 Arrival Date: 06/28/2023 Time: 08:10 Bed 4 Private MD: ED Physician Len Lane HPI: 06/28 08:36 This 47 yrs old Male presents to ER via Wheelchair with complaints of Shortness Of sp3 Breath. 08:36 47-year-old male with a history of hypertension, COPD, prior respiratory failure sp3 including intubation approximately 40 days ago now presents to the ED with recurrent shortness of breath. Patient also states he is on a "blood thinner" for a "clot in my heart". He denies pulm embolism or clot reported in the lung and/or leg. Patient states he awoke at approximately 6 AM feeling worsening shortness of breath and so decided to come in early to prevent a similar episode as last time. He denies any other symptoms including fever, cough, chest pain, back pain, abdominal pain, nausea, vomiting, diarrhea, syncope, near syncope, known sick contacts, travel history, or any other signs or symptoms on ROS this time.. Historical: - Allergies: 08:23 Hydrocodone-Acetaminophen; iw 08:23 Lortab; iw 08:23 Tylenol; iw 08:23 Vicodin; iw - Home Meds: 08:26 prednisone 20 mg Oral tablet daily [Active]; isosorbide dinitrate 10 mg Oral tablet 2 iw times per day [Active]; Eliquis 5 mg oral tablet 2 times per day [Active]; hydralazine 100 mg Oral tablet 3 times per day [Active]; aspirin 81 mg Oral capsule daily [Active]; - PMHx: 08:23 Back pain; Hypertension; iw - Immunization history:: Adult Immunizations up to date. - Social history:: Smoking status: Patient/guardian denies using tobacco, Stopped _ months ago 1. ROS: 08:37 Constitutional: Negative for fever, chills, and weight loss, Eyes: Negative for injury, sp3 pain, redness, and discharge, ENT: Negative for injury, pain, and discharge, Neck: Negative for injury, pain, and swelling, Cardiovascular: Negative for chest pain, palpitations, and edema, Abdomen/GI: Negative for abdominal pain, nausea, vomiting, diarrhea, and constipation, : Negative for injury, bleeding, discharge, and swelling, MS/Extremity: Negative for injury and deformity, Skin: Negative for injury, rash, and discoloration, Neuro: Negative for headache, weakness, numbness, tingling, and seizure, Psych: Negative for depression, anxiety, suicide ideation, homicidal ideation, and hallucinations, Allergy/Immunology: Negative for hives, rash, and allergies, Endocrine: Negative for neck swelling, polydipsia, polyuria, polyphagia, and marked weight changes, Hematologic/Lymphatic: Negative for swollen nodes, abnormal bleeding, and unusual bruising, 08:37 All other systems are negative, Exam: 08:37 Constitutional: This is a well developed, well nourished patient who is awake, alert, sp3 and in no acute distress. Head/Face: Normocephalic, atraumatic. Eyes: Pupils equal round and reactive to light, extra-ocular motions intact. Lids and lashes normal. Conjunctiva and sclera are non-icteric and not injected. Cornea within normal limits. Periorbital areas with no swelling, redness, or edema. Neck: Trachea midline, no thyromegaly or masses palpated, and no cervical lymphadenopathy. Supple, full range of motion without nuchal rigidity, or vertebral point tenderness. No Meningismus. Chest/axilla: Normal chest wall appearance and motion. Nontender with no deformity. No lesions are appreciated. Cardiovascular: Regular rate and rhythm with a normal S1 and S2. No gallops, murmurs, or rubs. Normal PMI, no JVD. No pulse deficits. Abdomen/GI: Soft, non-tender, with normal bowel sounds. No distension or tympany. No guarding or rebound. No evidence of tenderness throughout. Back: No spinal tenderness. No costovertebral tenderness. Full range of motion. Skin: Warm, dry with normal turgor. Normal color with no rashes, no lesions, and no evidence of cellulitis. MS/ Extremity: Pulses equal, no cyanosis. Neurovascular intact. Full, normal range of motion. Neuro: Awake and alert, GCS 15, oriented to person, place, time, and situation. Cranial nerves II-XII grossly intact. Motor strength 5/5 in all extremities. Sensory grossly intact. Cerebellar exam normal. Normal gait. Psych: Awake, alert, with orientation to person, place and time. Behavior, mood, and affect are within normal limits. 08:37 Respiratory: Room air pulse ox 88% with 97% on 2 L oxygen. Coarse breath sounds bilaterally., 10:04 ECG was reviewed by the Attending Physician. EKG demonstrates normal sinus rhythm at 82 sp3 bpm with normal intervals, normal axis, early J-point elevation in the lateral leads QTc of [address]/T changes without evidence of acute ischemia. Vital Signs: 08:20 Resp 22; Pulse Ox 88% on R/A; iw 08:30 BP 146 / 96; Pulse 86; Pulse Ox 95% on 3 lpm NC; ll1 08:45 Temp 97(TE); ll1 09:45 BP 134 / 92; Pulse 70; Resp 20; Pulse Ox 94% on 3 lpm NC; ll1 10:37 BP 149 / 99; Pulse 81; Resp 18; Pulse Ox 96% on 2 lpm NC; mb9 10:40 Weight 90.72 kg; Height 5 ft. 11 in. ; mb9 10:40 Body Mass Index 27.89 (90.72 kg, 180.34 cm) mb9 MDM: 08:15 Patient medically screened. sp3 08:38 Data reviewed: vital signs, nurses notes, old medical records, lab test result(s), EKG, sp3 radiologic studies. ED course: 47-year-old male with extensive past medical history of prior respiratory failure now presents with shortness of breath. Differential diagnosis is broad and includes COPD exacerbation, pneumonia, viral syndrome including sepsis, COVID-19, influenza, acute coronary syndrome, CHF, among others. Workup will include laboratory values, EKG, chest x-ray, lactate level, VBG and viral swabs. Disposition pending workup and patient course with probable admission given his history. ,. 10:03 ED course: BNP levels elevated with no significant abnormalities on the remainder of sp3 the workup. We will administer Lasix and place patient in observation for further diuresis and evaluation.. 06/28 08:31 Order name: Basic Metabolic Panel; Complete Time: :41 sp3 06/28 08:31 Order name: CBC with Diff; Complete Time: :41 sp3 06/28 08:31 Order name: LFT's; Complete Time: sp3 06/28 08:31 Order name: Magnesium; Complete Time: 09:41 sp3 06/28 08:31 Order name: NT PRO-BNP; Complete Time: 09:41 sp3 06/28 08:31 Order name: PT-INR; Complete Time: 09:41 sp3 06/28 08:31 Order name: Troponin HS; Complete Time: 09:41 sp3 06/28 08:31 Order name: Lactate w/ 2H reflex if indic.; Complete Time: 09:41 sp3 06/28 08:31 Order name: Flu; Complete Time: 09:41 sp3 06/28 08:31 Order name: SARS RAPID; Complete Time: 09:41 sp3 12 08:31 Order name: ABG: VBG; Complete Time: 11:03 sp3 06/28 08:31 Order name: XRAY Chest (1 view); Complete Time: 09:41 sp3 06/28 08:31 Order name: EKG; Complete Time: 08:31 sp3 06/28 08:31 Order name: Cardiac monitoring; Complete Time: 08:54 sp3 06/28 08:31 Order name: EKG - Nurse/Tech; Complete Time: 08:51 sp3 06/28 08:31 Order name: IV Saline Lock; Complete Time: 08:31 sp3 06/28 08:31 Order name: Labs collected and sent; Complete Time: 08:31 sp3 06/28 08:31 Order name: O2 Per Protocol; Complete Time: 08:31 sp3 06/28 08:31 Order name: O2 Sat Monitoring; Complete Time: 08:31 sp3 Administered Medications: 10:13 Drug: Furosemide IVP 40 mg IVP once; give over 2 minutes Route: IVP; Site: right mb9 antecubital; 10:40 Follow up: Response: No adverse reaction mb9 Disposition Summary: 06/28/23 10:09 Hospitalization Ordered Notes: Hospitalization Status: Observation sp3 Provider: James Vasquez sp3 Condition: Stable sp3 Problem: an acute exacerbation sp3 Symptoms: have worsened sp3 Bed/Room Type: Standard sp3 Location: Telemetry/MedSurg (observation)(06/28/23 16:02) em1 Room Assignment: 214(06/28/23 16:56) em1 Diagnosis - Dyspnea, congestive heart failure, peripheral edema sp3 Discharge Instructions: - Discharge Summary Sheet mb9 Forms: - Medication Reconciliation Form sp3 - Leadership Thank You Letter sp3 - SBAR form mb9 Signatures: Dispatcher [employer] Lida Churchill, REMY ALBERTO Eric, Baldev em1 Gino Cooney RN RN [email or web address] Denae Morales RN RN ll1 Len Lane MD MD sp3 Raimundo, My Jain RN RN mb9 Corrections: (The following items were deleted from the chart) 08:48 08:47 Home Meds: Eliquis 5 mg oral tablet 1 tab once; ll1 ll1 13:54 10:09 Telemetry/MedSurg (observation) sp3 em1 13:54 10:09 sp3 em1 16:02 13:54 [facility] ER HOLD em1 em1 16:02 13:54 ERHOLD- em1 em1 16:31 16:02 420 em1 ja1 16:56 16:31 428 ja1 em1
[2023-06-28] MEDS ORDERED: FUROSEMIDE 40 MG/4 ML VIAL ONE ×2 (10:24→17:18)
--- NOTE | 2023-06-28 11:46 | P.HP ---
Certification for Inpatient Patient admitted to: Inpatient With expected LOS: >2 Midnights Patient will require the following post-hospital care: None Practitioner: I am a practitioner with admitting privileges, knowledge of patient current condition, hospital course, and medical plan of care. Services: Services provided to patient in accordance with Admission requirements found in Title 42 Section 412.3 of the Code of Federal Regulations Patient History Date of Service: 06/28/23 Reason for admission: CHF exacerbation History of Present Illness: 47-year-old male with history of chronic systolic congestive heart failure, CAD, left lower extremity DVT, CKD, COPD, hypertension presented to the emergency department chief manage shortness of breath and chest pain that started this morning when he woke up. He also reports he is been having swelling of his legs although he cannot tell me how long it has been going on for. He was recently admitted at [facility] on 05/19/2023 for ARDS, acute on chronic systolic congestive heart failure, FREDDIE, DVT. He required intubation while there. He does not provide much history other than the fact that he been having chest pain and shortness of breath that started today. In the ER he was requiring nasal cannula oxygen to maintain saturations greater than 90% his labs are significant for hemoglobin of 8.4 hematocrit 25.4 creatinine 1.78 GFR 46 lactic acid 0.9 BNP 13,542 chest x-ray showed moderate bilateral pulmonary opacities, small pleural effusions heart is mildly to moderately enlarged, suspected CHF. He was given IV Lasix in the ED, ED provider wishes to admit for acute on chronic systolic Heart Failure, Acute Hypoxic Respite Failure. Allergies No Known Allergies Allergy (Verified 12/31/11 13:25) Home Medications: Esomeprazole Magnesium [Nexium] 40 mg PO DAILY 12/31/11 Lisinopril/Hydrochlorothiazide [Lisinopril-Hctz 20-12.5 mg Tab] 1 each PO DAILY 12/31/11 - Past Medical/Surgical History -: Chronic systolic congestive heart failure -: Hypertension -: COPD -: Left lower extremity DVT -: Hyperlipidemia -: CAD Past Surgical History: Unable to obtain Psychosocial/ Personal History: Lives at home alone - Family History Family History: Reviewed- Non-Contributory - Social History Alcohol use: No CD- Drugs: No Caffeine use: Yes Place of Residence: Home Review of Systems 10-point ROS is otherwise unremarkable Respiratory: Shortness of Breath Cardiovascular: Chest Pain, Edema Physical Examination - Physical Exam General: Alert, In no apparent distress, Oriented x3 HEENT: Atraumatic, PERRLA, EOMI Neck: Supple Respiratory: Clear to auscultation bilaterally, Crackles/rales Cardiovascular: Regular rate/rhythm, Normal S1 S2, Edema (2+ pitting edema bilateral lower extremity) Gastrointestinal: Normal bowel sounds Musculoskeletal: No tenderness Integumentary: No rashes Neurological: Normal speech, Normal strength at 5/5 x4 extr, Normal tone, Normal affect - Studies Laboratory Data (last 24 hrs) 06/28/23 06/28/23 06/28/23 08:35 08:35 08:35 WBC 7.30 Hgb 8.4 L Hct 25.4 L Plt Count 162 PT 23.1 H INR 2.15 Sodium 136 Potassium 3.7 BUN 16 Creatinine 1.78 H Glucose 125 H Magnesium 1.6 Total Bilirubin 0.6 AST 7 L ALT 16 Alkaline Phosphatase 67 Microbiology Data (last 24 hrs): 06/28/23 08:34 Nasopharnyx Influenza Type A Antigen Screen - Final 06/28/23 08:34 Nasopharnyx Influenza Type B Antigen Screen - Final Assessment and Plan - Plan Assessment: Acute hypoxic respite failure Acute on chronic systolic/heart failure History of CAD Hypertension Hyperlipidemia Recent left lower extremity DVT COPD Plan: Acute hypoxic respite failure Acute on chronic systolic/heart failure History of CAD Had recent hospitalization 05/11/2023 for ARDS, CHF exacerbation at [facility] Echo performed 05/21/2023 at [facility] showed mildly reduced EF 45 to 49%, mild concentric left ventricular hypertrophy, akinetic apical segments, mild anterior septum Continue IV diuresis, does not appear to be prescribed a diuretic at home Cardiology consult, echocardiogram ordered Home medications continued. Reportedly had a heart catheterization earlier in the year with balloon angioplasty of unknown vessel Trend troponins given reports of chest pain Hypertension Hyperlipidemia Recent left lower extremity DVT Home medications have been continued including Eliquis COPD As needed nebulizer treatments DVT PPX: Continue Eliquis Code status: Full Discharge Plan: Home Plan to discharge in: 72 Hours - Advance Directives Does patient have a Living Will: No Does patient have a Durable POA for Healthcare: No - Code Status/Comfort Care Code Status Assessed: Yes (Full code) Critical Care: No Time Spent Managing Pts Care (In Minutes): 70
[2023-06-28] MEDS ORDERED: ONDANSETRON 4 MG/2 ML VIAL IV PRN (12:30)
[2023-06-28] MEDS: HYDRALAZINE HCL 25 MG TABLET PO SCH ×2 (14:00→22:23)
[2023-06-28] MEDS ORDERED: ISOSORBIDE DINIT 5 MG TAB PO SCH (14:00)
[2023-06-28] MEDS: ISOSORBIDE DINIT 5 MG TAB PO SCH ×2 (14:00→21:00)
[2023-06-28] MEDS ORDERED: HYDRALAZINE HCL 25 MG TABLET ONE (14:45)
[2023-06-28] MEDS: FUROSEMIDE 40 MG/4 ML VIAL IV SCH (17:00)
[2023-06-28] MEDS: carvediloL 25 MG TAB PO SCH (19:01)
[2023-06-28] MEDS: cloNIDine HCL 0.1 MG TAB PO SCH (21:00)
[2023-06-28] MEDS: ATORVASTATIN 40 MG TAB PO SCH (22:10)
[2023-06-28] MEDS: APIXABAN 5 MG TABLET PO SCH (22:10)
[2023-06-29 02:51] LABS: Absolute Lymphocytes (CBC) 2.2 K/uL (0.7-4.9); Hematocrit 26.5 % (39.6-49.0); Lymphocytes % 25.1 % (15.3-44.8); MPV 9.9 fL (7.6-11.3); Platelets 206 thou/uL (152-406); RBC Red Blood Cell Count 3.15 M/uL (4.33-5.43)
[2023-06-29 03:01] LABS: Potassium 3.1 mEq/L (3.5-5.1)
[2023-06-29] MEDS: carvediloL 25 MG TAB PO SCH ×2 (05:59→17:51)
[2023-06-29] MEDS ORDERED: POTASSIUM 25 MEQ EFFERV TAB PO ONE (07:30)
[2023-06-29] MEDS: FUROSEMIDE 40 MG/4 ML VIAL IV SCH ×2 (08:32→17:51)
[2023-06-29] MEDS: cloNIDine HCL 0.1 MG TAB PO SCH ×2 (08:32→21:00)
[2023-06-29] MEDS: APIXABAN 5 MG TABLET PO SCH ×2 (08:32→22:02)
[2023-06-29] MEDS: CLOPIDOGREL 75 MG TABLET PO SCH (08:32)
[2023-06-29] MEDS: HYDRALAZINE HCL 25 MG TABLET PO SCH ×3 (08:32→22:03)
--- NOTE | 2023-06-29 08:36 | P.CNS ---
Date of Consult: 06/29/23 Reason for Consult: acute on chronic congestive heart failure Requesting Physician: James Vasquez Chief Complaint: CHF exacerbation History of Present Illness: Mr. Redmond is a 47yo patient with a hx of CAD, left lower ext DVT, CKD, CHF who presented to the ED yesterday hypoxic and fluid overloaded. He states he stopped smoking a month ago with his last admission to the medical center. He had an ECHO at [facility] that showed slightly depressed EF at 45-48%, concentric LVH. Troponin trend has been negative (34-->2 Allergies No Known Allergies Allergy (Verified 12/31/11 13:25) Home medications list reviewed: Yes Home Medications: Apixaban [Eliquis] 5 mg PO DAILY 06/28/23 Aspirin 81 mg PO DAILY 06/28/23 Hydralazine HCl 100 mg PO TID 06/28/23 Isosorbide Dinitrate 10 mg PO BID 06/28/23 predniSONE [Prednisone] 20 mg PO DAILY 06/28/23 Atorvastatin Calcium [Lipitor] 40 mg PO BEDTIME 06/29/23 Carvedilol [Coreg] 25 mg PO BID 06/29/23 Clopidogrel Bisulfate [Plavix*] 75 mg PO DAILY 06/29/23 Ipratropium/Albuterol Sulfate [Combivent Respimat 20-100 Mcg] 2 puff IH DAILY PRN 06/29/23 - Past Medical/Surgical History -: Chronic systolic congestive heart failure -: Hypertension -: COPD -: Left lower extremity DVT -: Hyperlipidemia -: CAD Psychosocial/ Personal History: Lives at home alone - Social History Smoking Status: Unknown if ever smoked, Heavy Tobacco smoker (>10 cigarettes/day) (until one month ago) Counseled patient to stop smoking for: less than 10 minutes Smoking therapy provided: Yes Alcohol use: No CD- Drugs: No Caffeine use: Yes Place of Residence: Home Review of Systems 10-point ROS is otherwise unremarkable Respiratory: As per HPI (states he is short of breath in his "stomach") Cardiovascular: Edema, Other (denies chest pain today) Physical Examination Temp Pulse Resp BP Pulse Ox 98.1 F 85 18 143/80 H 91 06/29/23 04:00 06/29/23 05:59 06/29/23 04:00 06/29/23 05:59 06/29/23 04:00 General: Alert, In no apparent distress, Oriented x3 HEENT: Atraumatic, Normocephalic Neck: Supple, 2+ carotid pulse no bruit Respiratory: Normal air movement, Expiratory wheezes Cardiovascular: Regular rate/rhythm, Edema (no pitting today) Capillary refill: <2 Seconds Gastrointestinal: Normal bowel sounds, Soft and benign Musculoskeletal: No clubbing Neurological: Normal speech, Normal tone External genitalia: Deferred Rectal: Deferred Laboratory Data (last 24 hrs) 06/28/23 06/28/23 06/28/23 08:35 08:35 08:35 WBC 7.30 Hgb 8.4 L Hct 25.4 L Plt Count 162 PT 23.1 H INR 2.15 Sodium 136 Potassium 3.7 BUN 16 Creatinine 1.78 H Glucose 125 H Magnesium 1.6 Total Bilirubin 0.6 AST 7 L ALT 16 Alkaline Phosphatase 67 - Problems (1) Acute on chronic congestive heart failure Current Visit: Yes Status: Acute Plan: Trend BNP, initially 13,542, while monitoring creatinine (1.78 this am) Gentle diureses. Pt with lower ext edema but no pitting any more as was present in ED. Apparently home diuretic was HCTZ Troponin trended negative x 3 Probably some COPD component to hypoxia, O2 per protocol, CXR tomorrow would be helpful to assess for improvement continue plavix, eliquis and atorvastatin (2) Essential hypertension Current Visit: Yes Status: Acute Plan: Continue carvedilol, hydralazine, isosorbide, and clonidine
[2023-06-29] MEDS: ISOSORBIDE DINIT 5 MG TAB PO SCH ×3 (09:13→22:02)
--- NOTE | 2023-06-29 09:32 | P.PN ---
Date of Service: 06/29/23 Subjective: Lower extremity edema improving Denies any particular complaints overnight Feels slight improvement in shortness of breath Still requiring nasal cannula oxygen ROS: 10 point ROS as noted above, otherwise negative Physical exam GEN: Alert, oriented, NAD HEENT: Normal conjunctiva, sclera anicteric CV: Regular rate and rhythm, trace LE edema Pulm: Nonlabored respirations on 2L NC ABD: Soft, nontender, nondistended MSK: No joint tenderness Integumentary: No rashes Neuro: Normal speech, normal affect Vitals reviewed Assessment: Acute hypoxic respite failure Acute on chronic systolic/heart failure CKD History of CAD Hypertension Hyperlipidemia Recent left lower extremity DVT COPD Plan: Acute hypoxic respite failure Acute on chronic systolic/heart failure History of CAD Had recent hospitalization 05/11/2023 for ARDS, CHF exacerbation at [facility] Echo performed 05/21/2023 at [facility] showed mildly reduced EF 45 to 49%, mild concentric left ventricular hypertrophy, akinetic apical segments, mild anterior septum Lower extremity edema improving, shortness of breath mild improving Still requiring nasal cannula oxygen Continue IV diuresis, does not appear to be prescribed a diuretic at home Cardiology consult, echocardiogram ordered Home medications continued. Reportedly had a heart catheterization earlier in the year with balloon angioplasty of unknown vessel Troponins trended negative CKD Unknown renal function baseline, Cr was 1.6 at DC from [facility], 1.8 today Nephrology consult, patient does not follow with nephrology Hypertension Hyperlipidemia Recent left lower extremity DVT Home medications have been continued including Eliquis COPD As needed nebulizer treatments VTE: Continue Eliquis Code: Full Dispo: 24 to 48 hours Time Spent Managing Pts Care (In Minutes): 35
--- NOTE | 2023-06-29 11:34 | P.CNS ---
Date of Consult: 06/29/23 Reason for Consult: Renal insufficiency Requesting Physician: James Vasquez Chief Complaint: CHF exacerbation History of Present Illness: Pt is a 47-year-old male with history of chronic systolic congestive heart failure, reports of unspecified CAD, suspected underlying CKD but not under the care of a OP [employer], chronic hypertension who presented to the emergency department chief with shortness of breath that more acutely worsened. He also reported he had been having swelling of his legs. He was reportedly admitted at [facility] on 05/19/2023 for ARDS, acute on chronic systolic congestive heart failure, FREDDIE, DVT. He required intubation while there. Pt cites on going shortness of breath at rest and some orthopnea. Allergies No Known Allergies Allergy (Verified 12/31/11 13:25) Home Medications: Apixaban [Eliquis] 5 mg PO DAILY 06/28/23 Aspirin 81 mg PO DAILY 06/28/23 Hydralazine HCl 100 mg PO TID 06/28/23 Isosorbide Dinitrate 10 mg PO BID 06/28/23 predniSONE [Prednisone] 20 mg PO DAILY 06/28/23 Atorvastatin Calcium [Lipitor] 40 mg PO BEDTIME 06/29/23 Carvedilol [Coreg] 25 mg PO BID 06/29/23 Clopidogrel Bisulfate [Plavix*] 75 mg PO DAILY 06/29/23 Ipratropium/Albuterol Sulfate [Combivent Respimat 20-100 Mcg] 2 puff IH DAILY PRN 06/29/23 - Past Medical/Surgical History -: Chronic systolic congestive heart failure -: Hypertension -: COPD -: Left lower extremity DVT -: Hyperlipidemia -: CAD Psychosocial/ Personal History: Lives at home alone - Social History Smoking Status: Unknown if ever smoked, Heavy Tobacco smoker (>10 cigarettes/day) (until one month ago) Alcohol use: No CD- Drugs: No Caffeine use: Yes Place of Residence: Home Review of Systems General: Weakness, As per HPI Eyes: Unremarkable ENT: Unremarkable Respiratory: Shortness of Breath, As per HPI Cardiovascular: Chest Pain, Edema Gastrointestinal: Unremarkable Genitourinary: Unremarkable Musculoskeletal: Unremarkable Integumentary: Unremarkable Neurological: Unremarkable Lymphatics: Unremarkable Physical Examination Temp Pulse Resp BP Pulse Ox 96.9 F 67 16 123/76 92 06/29/23 08:00 06/29/23 08:00 06/29/23 08:00 06/29/23 08:00 06/29/23 08:00 General: In no apparent distress, Cooperative HEENT: Atraumatic, Normocephalic, Other (LFNC) Neck: Supple Respiratory: Normal air movement, Other (reduced BS at the bases, non tachypnec) Cardiovascular: Regular rate/rhythm, Edema Gastrointestinal: Soft and benign, Non-distended, No tenderness Musculoskeletal: No contractures, No tenderness Integumentary: No rashes Neurological: Normal speech, Normal tone Conclusions/Impression: A/P) 1. Stage 1 FREDDIE on possible underlying CKD NOS 2nd to chronic HTN/other conditions, with FREDDIE possible 2nd to Type 1 CRS, BP lowering, other. Cont to trend closely 2. Acute on chronic systolic CHF. Probable acute cardiogenic pulm edema. Cont IV lasix diuresis, recorded UOP has been acceptable 3. With pt's ischemic cardiomyopathy and LVEF dysfunction, he would benefit from a TRU inhibitor, will place on low dose Entresto 4. If renal function remains stable, can consider additional HF meds such as aldosterone antagonist and possible SGLT2i 5. Monitor lytes closely Dipesh Veras MD, SABA
[2023-06-29] MEDS: ATORVASTATIN 40 MG TAB PO SCH (22:01)
[2023-06-29] MEDS: SACUBITRIL/VALSARTAN 24/26 MG TAB PO SCH (22:02)
[2023-06-30] MEDS: carvediloL 25 MG TAB PO SCH ×2 (05:58→17:26)
[2023-06-30 07:19] LABS: Absolute Lymphocytes (CBC) 1.5 K/uL (0.7-4.9); Hematocrit 30.1 % (39.6-49.0); Lymphocytes % 21.8 % (15.3-44.8); MCV 83.6 fL (80-100); MPV 9.1 fL (7.6-11.3); Platelets 220 thou/uL (152-406); RBC Red Blood Cell Count 3.61 M/uL (4.33-5.43)
[2023-06-30 07:37] LABS: Potassium 3.3 mEq/L (3.5-5.1)
[2023-06-30] MEDS: cloNIDine HCL 0.1 MG TAB PO SCH ×2 (08:11→21:26)
[2023-06-30] MEDS: ISOSORBIDE DINIT 5 MG TAB PO SCH ×3 (08:11→21:25)
[2023-06-30] MEDS: HYDRALAZINE HCL 25 MG TABLET PO SCH ×3 (08:11→21:24)
[2023-06-30] MEDS: APIXABAN 5 MG TABLET PO SCH ×2 (08:11→21:26)
[2023-06-30] MEDS: CLOPIDOGREL 75 MG TABLET PO SCH (08:11)
[2023-06-30] MEDS: SACUBITRIL/VALSARTAN 24/26 MG TAB PO SCH ×2 (08:11→21:24)
[2023-06-30] MEDS: FUROSEMIDE 40 MG/4 ML VIAL IV SCH (08:11)
--- NOTE | 2023-06-30 08:38 | P.PN ---
Date of Service: 06/30/23 Subjective: Lower extremity edema improved Had some shortness of breath that woke him up last night Still requiring nasal cannula oxygen ROS: 10 point ROS as noted above, otherwise negative Physical exam GEN: Alert, oriented, NAD HEENT: Normal conjunctiva, sclera anicteric CV: Regular rate and rhythm, trace LE edema Pulm: Nonlabored respirations on 2L NC ABD: Soft, nontender, nondistended MSK: No joint tenderness Integumentary: No rashes Neuro: Normal speech, normal affect Vitals reviewed Assessment: Acute hypoxic respite failure Acute on chronic systolic/heart failure CKD History of CAD Hypertension Hyperlipidemia Recent left lower extremity DVT COPD Plan: Acute hypoxic respite failure Acute on chronic systolic/heart failure History of CAD Had recent hospitalization 05/11/2023 for ARDS, CHF exacerbation at [facility] Echo performed 05/21/[address] [facility] showed mildly reduced EF 45 to 49%, mild concentric left ventricular hypertrophy, akinetic apical segments, mild anterior septum Lower extremity edema improving, shortness of breath mild improving Still requiring nasal cannula oxygen Continue IV diuresis today, does not appear to be prescribed a diuretic at home repeat CXR today Try to wean 02 Cardiology consult, echocardiogram ordered Home medications continued. Reportedly had a heart catheterization earlier in the year with balloon angioplasty of unknown vessel Troponins trended negative CKD Unknown renal function baseline, Cr was 1.6 at DC from [facility], 1.7 today Nephrology consult, patient does not follow with nephrology Nephrology following Hypertension Hyperlipidemia Recent left lower extremity DVT Home medications have been continued including Eliquis COPD As needed nebulizer treatments VTE: Continue Eliquis Code: Full Dispo: 24 to 48 hours Time Spent Managing Pts Care (In Minutes): 35
[2023-06-30] MEDS: HYDROCODONE/APAP 5/325 MG TAB PO PRN (10:13)
--- NOTE | 2023-06-30 11:07 | RAD REPORT ---
EXAM DESCRIPTION: RADChest Single View06/30/2023 10:39 am CLINICAL HISTORY: eval pulmonary edema/chf COMPARISON: Chest Single View dated 06/28/2023; Chest Single View dated 05/19/2023; Chest Single View dated 04/29/2023; Chest Single View dated 07/21/2021 TECHNIQUE: Portable AP view of the chest. FINDINGS: The lungs show no focal consolidation. Central interstitial prominence, improved since the prior exam. No pneumothorax or effusion. The cardiomediastinal contours are unremarkable. IMPRESSION: Improvement of central interstitial prominence, suggesting improving central congestion/ CHF.
[2023-06-30 12:44] VITALS: BMI 27.7
[2023-06-30] MEDS ORDERED: POTASSIUM 25 MEQ EFFERV TAB PO ONE (16:24)
[2023-06-30] MEDS: ATORVASTATIN 40 MG TAB PO SCH (21:24)
[2023-07-01 03:54] LABS: Hematocrit 31.8 % (39.6-49.0); Lymphocytes % 21.7 % (15.3-44.8); MCV 83.9 fL (80-100); MPV 9.5 fL (7.6-11.3); Platelets 243 thou/uL (152-406); RBC Red Blood Cell Count 3.79 M/uL (4.33-5.43)
[2023-07-01 04:21] LABS: Potassium 3.8 mEq/L (3.5-5.1); Troponin High Sensitivity 31.8 pg/mL (<58.9)
[2023-07-01] MEDS: carvediloL 25 MG TAB PO SCH ×2 (06:00→17:17)
[2023-07-01] MEDS: cloNIDine HCL 0.1 MG TAB PO SCH ×2 (09:00→20:19)
[2023-07-01] MEDS: ISOSORBIDE DINIT 5 MG TAB PO SCH ×3 (09:00→20:20)
--- NOTE | 2023-07-01 09:19 | P.PN ---
Date of Service: 07/01/23 Subjective: Lower extremity edema improved Still with JALLOH, orthopnea ROS: 10 point ROS as noted above, otherwise negative Physical exam GEN: Alert, oriented, NAD HEENT: Normal conjunctiva, sclera anicteric CV: Regular rate and rhythm, trace LE edema Pulm: Nonlabored respirations on 2L NC ABD: Soft, nontender, nondistended MSK: No joint tenderness Integumentary: No rashes Neuro: Normal speech, normal affect Vitals reviewed Assessment: Acute hypoxic respite failure Acute on chronic systolic/heart failure CKD History of CAD Hypertension Hyperlipidemia Recent left lower extremity DVT COPD Plan: Acute hypoxic respite failure Acute on chronic systolic/heart failure History of CAD Had recent hospitalization 05/11/2023 for ARDS, CHF exacerbation at [facility] Echo performed 05/21/2023 at [facility] showed mildly reduced EF 45 to 49%, mild concentric left ventricular hypertrophy, akinetic apical segments, mild anterior septum Lower extremity edema improving, shortness of breath mild improving On room air Switched to PO lasix CXR mild improvement Cardiology consult, echocardiogram ordered Home medications continued. Reportedly had a heart catheterization earlier in the year with balloon angioplasty of unknown vessel Troponins trended negative Still having JALLOH and orthopnea CKD Unknown renal function baseline, Cr was 1.[address] [facility], 1.89 today Started on entresto Holding hydralazine now given low blood pressures Hypertension Hyperlipidemia Recent left lower extremity DVT Home medications have been continued including Eliquis COPD As needed nebulizer treatments VTE: Continue Eliquis Code: Full Dispo: 24 to 48 hours Time Spent Managing Pts Care (In Minutes): 35
[2023-07-01] MEDS ORDERED: ISOSORBIDE DINIT 20 MG TAB ONE ×2 (09:47→13:03)
[2023-07-01] MEDS: CLOPIDOGREL 75 MG TABLET PO SCH (10:01)
[2023-07-01] MEDS: HYDROCODONE/APAP 5/325 MG TAB PO PRN (10:01)
[2023-07-01] MEDS: APIXABAN 5 MG TABLET PO SCH ×2 (10:02→20:20)
[2023-07-01] MEDS: SACUBITRIL/VALSARTAN 24/26 MG TAB PO SCH ×2 (10:02→20:20)
[2023-07-01] MEDS: FUROSEMIDE 40 MG TABLET PO SCH (10:02)
[2023-07-01] MEDS: ATORVASTATIN 40 MG TAB PO SCH (20:20)
[2023-07-02] MEDS: carvediloL 25 MG TAB PO SCH ×2 (05:54→17:40)
[2023-07-02 07:04] LABS: Potassium 3.9 mEq/L (3.5-5.1)
[2023-07-02] MEDS: FUROSEMIDE 40 MG TABLET PO SCH (08:37)
[2023-07-02] MEDS: cloNIDine HCL 0.1 MG TAB PO SCH (08:37)
[2023-07-02] MEDS: ISOSORBIDE DINIT 5 MG TAB PO SCH ×2 (08:37→21:32)
[2023-07-02] MEDS: APIXABAN 5 MG TABLET PO SCH ×2 (08:42→21:32)
[2023-07-02] MEDS: CLOPIDOGREL 75 MG TABLET PO SCH (08:42)
[2023-07-02] MEDS: SACUBITRIL/VALSARTAN 24/26 MG TAB PO SCH ×2 (08:43→21:00)
--- NOTE | 2023-07-02 08:44 | ECHO ---
HEIGHT: 5 ft 11 in WEIGHT: 199 lb 0 oz DATE OF STUDY: 06/29/[address]: Rick Headley NP 2-DIMENSIONAL: YES M.MODE: YES DOPPLER: YES COLOR FLOW: YES TDS: PORTABLE: YES DEFINITY: BUBBLE STUDY: DIAGNOSIS: CONGESTIVE HEART FAILURE CARDIAC HISTORY: CATHERIZATION: SURGERY: PROSTHETIC VALVE: PACEMAKER: MEASUREMENTS (cm) DIASTOLIC (NORMALS) SYSTOLIC (NORMALS) IVSd 1.0 (0.6-1.2) LA Diam 4.1 (1.9-4.0) LVEF 50-55% LVIDd 5.1 (3.5-5.7) LVIDs 3.3 (2.0-3.5) %FS 35% LVPWd 1.1 (0.6-1.2) Ao Diam 3.0 (2.0-3.7) 2 DIMENSIONAL ASSESSMENT: RIGHT ATRIUM: NORMAL LEFT ATRIUM: ENLARGED RIGHT VENTRICLE: NORMAL LEFT VENTRICLE: NORMAL TRICUSPID VALVE: MILD TRICUSPID REGURGITATION MITRAL VALVE: MILD MITRAL REGURGITATION PULMONIC VALVE: NORMAL AORTIC VALVE: NORMAL PERICARDIAL EFFUSION: NONE AORTIC ROOT: NORMAL LEFT VENTRICULAR WALL MOTION: APICAL DYSKINESIS DOPPLER/COLOR FLOW: SEE BELOW COMMENTS: 1. NORMAL LEFT VENTRICULAR EJECTION FRACTION 50-55% 2. APICAL DYSKINESIS 3. LEFT ATRIAL ENLARGEMENT 4. MILD MITRAL REGURGITATION 5. MILD TRICUSPID REGURGITATION TECHNOLOGIST: KASIE BAZAN
--- NOTE | 2023-07-02 09:43 | P.PN ---
Date of Service: 07/02/23 Subjective: Lower extremity edema improved Still with JALLOH, orthopnea ROS: 10 point ROS as noted above, otherwise negative Physical exam GEN: Alert, oriented, NAD HEENT: Normal conjunctiva, sclera anicteric CV: Regular rate and rhythm, trace LE edema Pulm: Nonlabored respirations on 2L NC ABD: Soft, nontender, nondistended MSK: No joint tenderness Integumentary: No rashes Neuro: Normal speech, normal affect Vitals reviewed Assessment: Acute hypoxic respite failure Acute on chronic systolic/heart failure CKD History of CAD Hypertension Hyperlipidemia Recent left lower extremity DVT COPD Plan: Acute hypoxic respite failure Acute on chronic systolic/heart failure History of CAD Had recent hospitalization 05/11/2023 for ARDS, CHF exacerbation at [facility] Echo performed 05/21/2023 at [facility] showed mildly reduced EF 45 to 49%, mild concentric left ventricular hypertrophy, akinetic apical segments, mild anterior septum Lower extremity edema improving, shortness of breath mild improving On room air Switched to PO lasix CXR mild improvement Cardiology consult, echocardiogram ordered-per cardiology showed apical dyskinesis Normal EF Plan for inpatient stress test Reportedly had a heart catheterization earlier in the year with balloon angioplasty of unknown vessel Troponins trended negative Still having JALLOH and orthopnea Nephrology added ulyssessto, renal fx stable BP running low now, discontinue hydralazine 100mg tid on 07/01 Isosorbide decreased from TID to BID dosing 07/02 May need further adjustment of BP meds CKD Unknown renal function baseline, Cr was 1.[address] [facility] Started on entresto Renal function stable Hypertension Nephrology added entresto, renal fx stable BP running low now, discontinue hydralazine 100mg tid on 07/01 Isosorbide decreased from TID to BID dosing 07/02 May need further adjustment of BP meds Hyperlipidemia Recent left lower extremity DVT Home medications have been continued including Eliquis COPD As needed nebulizer treatments VTE: Continue Eliquis Code: Full Dispo: 24 to 48 hours Time Spent Managing Pts Care (In Minutes): 35
--- NOTE | 2023-07-02 10:04 | P.PN ---
Subjective Date of Service: 07/02/23 Chief Complaint: CHF exacerbation Subjective: Improving Assessment: Acute hypoxic respite failure Acute on chronic systolic/heart failure CKD History of CAD Hypertension Hyperlipidemia Recent left lower extremity DVT COPD Plan: Acute hypoxic respite failure Acute on chronic systolic/heart failure History of CAD Had recent hospitalization 05/11/2023 for ARDS, CHF exacerbation at [facility] Echo performed 05/21/2023 at [facility] showed mildly reduced EF 45 to 49%, mild concentric left ventricular hypertrophy, akinetic apical segments, mild anterior septum Lower extremity edema improving, shortness of breath mild improving On room air Switched to PO lasix CXR mild improvement ECHO - apical dyskinesis, NM stress test ordered today Normal EF Plan for inpatient stress test Reportedly had a heart catheterization earlier in the year with balloon angioplasty of unknown vessel Troponins trended negative Still having JALLOH and orthopnea Nephrology added entresto, renal fx stable BP running low now, discontinue hydralazine 100mg tid on 07/01 Isosorbide decreased from TID to BID dosing 07/02 May need further adjustment of BP meds CKD Unknown renal function baseline, Cr was 1.6 at DC from [facility] Started on entresto Renal function stable Hypertension Nephrology added entresto, renal fx stable BP running low now, discontinue hydralazine 100mg tid on 07/01 Isosorbide decreased from TID to BID dosing 07/02 May need further adjustment of BP meds Hyperlipidemia Recent left lower extremity DVT Home medications have been continued including Eliquis COPD As needed nebulizer treatments VTE: Continue Eliquis Code: Full Dispo: 24 to 48 hours Review of Systems 10-point ROS is otherwise unremarkable Respiratory: As per HPI Physical Examination - Vital Signs Temperature: 97.6 F Blood Pressure: 101/58 Pulse: 69 Respirations: 16 Pulse Ox (%): 93 - Physical Exam General: Alert, Oriented x3, Other (frustrated and poorly communicative) HEENT: Atraumatic, Normocephalic Neck: Supple, 2+ carotid pulse no bruit, JVD not distended Respiratory: Clear to auscultation bilaterally, Normal air movement Cardiovascular: No edema, Regular rate/rhythm Capillary refill: <2 Seconds Gastrointestinal: Normal bowel sounds, Soft and benign Musculoskeletal: No clubbing Integumentary: No rashes Neurological: Normal speech, Normal tone Lymphatics: No axilla or inguinal lymphadenopathy External genitalia: Deferred Rectal: Deferred Assessment And Plan - Current Problems (Diagnosis) (1) Acute on chronic congestive heart failure Current Visit: Yes Status: Acute Plan: Trend BNP, initially 13,542, while monitoring creatinine (1.78 this am) Gentle diureses. Pt with lower ext edema but no pitting any more as was present in ED. 07/02/23 negative for edema Apparently home diuretic was HCTZ, 07/02/23 now on po Lasix Troponin trended negative x 3, ECHO showed apical dyskinesis so order placed 07/02/23 for NM stress test Probably some COPD component to hypoxia, O2 per protocol, CXR tomorrow would be helpful to assess for improvement, 07/02/23 on RA, SpO2 low 90s continue plavix, eliquis and atorvastatin 07/02/23 Will continue and added Entresto per Nephrology, holding hydralazine, will decrease Isosorb to BID from TID. Blood pressure this am 119/66, 78% (2) Essential hypertension Current Visit: Yes Status: Acute Plan: Continue carvedilol, hydralazine, isosorbide, and clonidine
--- NOTE | 2023-07-02 10:26 | P.PN ---
Date of Service: 07/02/23 Vital Signs Temp Pulse Resp BP Pulse Ox 97.6 F 69 16 101/58 L 93 07/02/23 10:04 07/02/23 10:04 07/02/23 10:04 07/02/23 10:04 07/02/23 10:04 Medications Hydrocodone Bitart/Acetaminophen (Hydrocodone/Apap 5/325 Mg Tab) 1 tab PO Q6H PRN PRN Reason: Pain scale 5-7 (Moderate) Last Admin: 07/01/23 10:01 Dose: 1 tab Apixaban (Apixaban 5 Mg Tablet) 5 mg PO BID [facility] Last Admin: 07/02/23 08:42 Dose: 5 mg Atorvastatin Calcium (Atorvastatin 40 Mg Tab) 40 mg PO BEDTIME [facility] Last Admin: 07/01/23 20:20 Dose: 40 mg Carvedilol (Carvedilol 25 Mg Tab) 25 mg PO BID 6AM 6PM [facility] Last Admin: 07/02/23 05:54 Dose: 25 mg Clonidine HCl (Clonidine Hcl 0.1 Mg Tab) 0.1 mg PO BID [facility] Last Admin: 07/02/23 08:37 Dose: Not Given Clopidogrel Bisulfate (Clopidogrel 75 Mg Tablet) 75 mg PO DAILY [facility] Last Admin: 07/02/23 08:42 Dose: 75 mg Furosemide (Furosemide 40 Mg Tablet) 40 mg PO DAILY [facility] Last Admin: 07/02/23 08:37 Dose: Not Given Isosorbide Dinitrate (Isosorbide Dinit 5 Mg Tab) 10 mg PO BID [facility] Last Admin: 07/02/23 08:37 Dose: Not Given Ondansetron HCl (Ondansetron 4 Mg/2 Ml Vial) 4 mg IV Q6HP PRN PRN Reason: NAUSEA / VOMITING Microbiology Results 06/28/23 08:34 Nasopharnyx Influenza Type A Antigen Screen - Final 06/28/23 08:34 Nasopharnyx Influenza Type B Antigen Screen - Final Assessment/ Plan: Nephrology Progress Note No Dyspnea No Chest Pain CLBP No Acute Events Overnight Vital Signs, Medications, Blood Work, and Imaging reviewed in the chart NAD. NCAT. MMM. Neck Supple. Normal Respiratory Effort/ Poor A/E. RRR. Abd ND. No C/C. LE Edema none. No Rash. AAO. Normal Speech. LEFT VENTRICULAR WALL MOTION: APICAL DYSKINESIS DOPPLER/COLOR FLOW: SEE BELOW COMMENTS: 1. NORMAL LEFT VENTRICULAR EJECTION FRACTION 50-55% 2. APICAL DYSKINESIS 3. LEFT ATRIAL ENLARGEMENT 4. MILD MITRAL REGURGITATION 5. MILD TRICUSPID REGURGITATION EXAM DESCRIPTION: RADChest Single View06/30/2023 10:39 am CLINICAL HISTORY: eval pulmonary edema/chf COMPARISON: Chest Single View dated 06/28/2023; Chest Single View dated 05/19/2023; Chest Single View dated 04/29/2023; Chest Single View dated 07/21/2021 TECHNIQUE: Portable AP view of the chest. FINDINGS: The lungs show no focal consolidation. Central interstitial prominence, improved since the prior exam. No pneumothorax or effusion. The cardiomediastinal contours are unremarkable. IMPRESSION: Improvement of central interstitial prominence, suggesting improving central congestion/CHF. Assessment & Plan Stage I FREDDIE likely CRS CKD IIIa -No NSAIDs Hyponatremia -Continue Lasix Hypokalemia -Replete prn HTN with CKD/ CHF complicated by hypotension -Agree with stopping hydralazine -Discontinue Clonidine Systolic CHF, A/C -Continue Lasix -Continue Entresto as tolerated Anemia in chronic illness -Monitor H&H -PRBC prn Case reviewed with hospitalist team
[2023-07-02] MEDS: ATORVASTATIN 40 MG TAB PO SCH (21:32)
[2023-07-03 03:35] LABS: Phosphorus 3.8 mg/dL (2.5-4.9); Potassium 4.3 mEq/L (3.5-5.1); Uric Acid 6.8 mg/dL (3.5-7.2)
[2023-07-03] MEDS: carvediloL 25 MG TAB PO SCH ×2 (05:18→17:38)
[2023-07-03 06:06] LABS: Specific Gravity 1.011 (1.005-1.030); Urine Bacteria <20 /HPF (<20); Urine Bilirubin NEGATIVE (Negative); Urine Blood Negative (Negative); Urine Clarity Clear (Clear); Urine Color Light-Yellow (Yellow); Urine Glucose NEGATIVE (Negative); Urine Protein NEGATIVE (Negative); Urine RBC <5 /HPF (None Seen); Urine Urobilinogen Normal (Normal)
--- NOTE | 2023-07-03 07:20 | P.PN ---
Subjective Date of Service: 07/03/23 Chief Complaint: CHF exacerbation Subjective: Improving Assessment: Acute hypoxic respite failure Acute on chronic systolic/heart failure CKD History of CAD Hypertension Hyperlipidemia Recent left lower extremity DVT COPD Plan: Acute hypoxic respite failure Acute on chronic systolic/heart failure History of CAD Had recent hospitalization 05/11/2023 for ARDS, CHF exacerbation at [facility] Echo performed 05/21/2023 at [facility] showed mildly reduced EF 45 to 49%, mild concentric left ventricular hypertrophy, akinetic apical segments, mild anterior septum Lower extremity edema improving, shortness of breath mild improving On room air Switched to PO lasix CXR mild improvement ECHO - apical dyskinesis, NM stress test ordered today Normal EF Plan for inpatient stress test Reportedly had a heart catheterization earlier in the year with balloon angioplasty of unknown vessel Troponins trended negative Still having JALLOH and orthopnea Nephrology added entresto, renal fx stable BP running low now, discontinue hydralazine 100mg tid on 07/01 Isosorbide decreased from TID to BID dosing 07/02 May need further adjustment of BP meds CKD Unknown renal function baseline, Cr was 1.[address] [facility] Started on entresto Renal function stable Hypertension Nephrology added entresto, renal fx stable BP running low now, discontinue hydralazine 100mg tid on 07/01 Isosorbide decreased from TID to BID dosing 07/02 May need further adjustment of BP meds Hyperlipidemia Recent left lower extremity DVT Home medications have been continued including Eliquis COPD As needed nebulizer treatments VTE: Continue Eliquis Code: Full Dispo: 24 to 48 hours Review of Systems 10-point ROS is otherwise unremarkable Physical Examination - Vital Signs Temperature: 98.7 F Blood Pressure: 116/73 Pulse: 78 Respirations: 18 Pulse Ox (%): 98 - Physical Exam General: Other (sleeping with resp even, unlabored. Awaiting NM stress today) HEENT: Atraumatic, Normocephalic Neck: JVD not distended Respiratory: Normal air movement Cardiovascular: No edema Gastrointestinal: Non-distended Musculoskeletal: No clubbing Integumentary: No rashes Neurological: Normal tone External genitalia: Deferred Rectal: Deferred Assessment And Plan - Current Problems (Diagnosis) (1) Acute on chronic congestive heart failure Current Visit: Yes Status: Acute Plan: Trend BNP, initially 13,542, while monitoring creatinine (1.78 this am) Gentle diureses. Pt with lower ext edema but no pitting any more as was present in ED. 07/02/23 negative for edema Apparently home diuretic was HCTZ, 07/02/23 now on po Lasix Troponin trended negative x 3, ECHO showed apical dyskinesis so order placed 07/02/23 for NM stress test Probably some COPD component to hypoxia, O2 per protocol, CXR tomorrow would be helpful to assess for improvement, 07/02/23 on RA, SpO2 low 90s continue plavix, eliquis and atorvastatin 07/02/23 Will continue and added Entresto per Nephrology, holding hydralazine, will decrease Isosorb to BID from TID. Blood pressure this am 119/66, 98% 07/03/23 BP this am 116/73, creatinine 1.74, BUN 24, Pt to have NM stress test today (2) Essential hypertension Current Visit: Yes Status: Acute Plan: Continue carvedilol, stop hydralazine, decrease frequency of isosorbide, and stop clonidine
[2023-07-03] MEDS ORDERED: REGADENOSON 0.4 MG/5 ML SYR IV ONE (09:15)
[2023-07-03] MEDS: FUROSEMIDE 40 MG TABLET PO SCH (10:03)
[2023-07-03] MEDS: SACUBITRIL/VALSARTAN 24/26 MG TAB PO SCH ×2 (10:04→20:11)
[2023-07-03] MEDS: CLOPIDOGREL 75 MG TABLET PO SCH (10:04)
[2023-07-03] MEDS: APIXABAN 5 MG TABLET PO SCH ×2 (10:05→20:12)
[2023-07-03] MEDS: ISOSORBIDE DINIT 5 MG TAB PO SCH ×2 (10:06→20:11)
--- NOTE | 2023-07-03 10:06 | RAD REPORT ---
EXAM DESCRIPTION: NM - Rest Stress Cardiac Imaging - 07/03/2023 10:00 am CLINICAL HISTORY: DYSKINESIS Chest pain. COMPARISON: No comparisons TECHNIQUE: The patient was administered approximately 10mCi of Tc 99m Sestamibi prior to resting SPE CT imaging of the heart. The patient was then administered approximately 30 mCi of Tc 99m Sestamibi f ollowing exercise or pharmacologic stress. Multiplanar SPECT images were reviewed. FINDINGS: No stress induced ischemic defect is seen to suggest stress induced ischemia. Large fixed defect is seen involving the LV apex compatible with scarring from prior infarction. The end diastolic volume is 199 ml, the end systolic volume is 126 ml, and the ejection fraction is 3 7 %. IMPRESSION: Large fixed defect in the LV apex noted. This is likely scar tissue from a prior infarct ion. Ejection fraction is mildly diminished measuring 37%.
[2023-07-03 10:31] LABS: UR PROTEIN 16.6 mg/dL (<11.9); Urine Protein/Creatinine Ratio 0.25 ratio (<0.15)
--- NOTE | 2023-07-03 12:48 | P.PN ---
Date of Service: 07/03/23 NM stress negative. Pt cleared to f/u outpatient. Cardiology to sign off.
--- NOTE | 2023-07-03 12:57 | P.PN ---
Subjective Date of Service: 07/03/23 Chief Complaint: CHF exacerbation Subjective: Improving Assessment: Acute hypoxic respite failure Acute on chronic systolic/heart failure CKD History of CAD Hypertension Hyperlipidemia Recent left lower extremity DVT COPD Plan: Acute hypoxic respite failure Acute on chronic systolic/heart failure History of CAD Had recent hospitalization 05/11/2023 for ARDS, CHF exacerbation at [facility] Echo performed 05/21/2023 at [facility] showed mildly reduced EF 45 to 49%, mild concentric left ventricular hypertrophy, akinetic apical segments, mild anterior septum Lower extremity edema improving, shortness of breath mild improving On room air Switched to PO lasix CXR mild improvement ECHO - apical dyskinesis, NM stress test ordered today Normal EF Plan for inpatient stress test Reportedly had a heart catheterization earlier in the year with balloon angioplasty of unknown vessel Troponins trended negative Still having JALLOH and orthopnea Nephrology added entresto, renal fx stable BP running low now, discontinue hydralazine 100mg tid on 07/01 Isosorbide decreased from TID to BID dosing 07/02 May need further adjustment of BP meds CKD Unknown renal function baseline, Cr was 1.6 at DC from [facility] Started on entresto Renal function stable Hypertension Nephrology added entresto, renal fx stable BP running low now, discontinue hydralazine 100mg tid on 07/01 Isosorbide decreased from TID to BID dosing 07/02 May need further adjustment of BP meds Hyperlipidemia Recent left lower extremity DVT Home medications have been continued including Eliquis COPD As needed nebulizer treatments VTE: Continue Eliquis Code: Full Dispo: 24 to 48 hours Review of Systems 10-point ROS is otherwise unremarkable Physical Examination - Vital Signs Temperature: 97.6 F Blood Pressure: 103/74 Pulse: 69 Respirations: 18 Pulse Ox (%): 98 - Physical Exam General: Alert, Oriented x3 HEENT: Atraumatic, Normocephalic, PERRLA Neck: Supple, 2+ carotid pulse no bruit Respiratory: Clear to auscultation bilaterally Cardiovascular: No edema Capillary refill: <2 Seconds Gastrointestinal: Normal bowel sounds Musculoskeletal: No clubbing Integumentary: No rashes Neurological: Normal speech, Normal tone External genitalia: Deferred Rectal: Deferred Assessment And Plan - Current Problems (Diagnosis) (1) Acute on chronic congestive heart failure Current Visit: Yes Status: Acute Plan: Trend BNP, initially 13,542, while monitoring creatinine (1.78 this am) Gentle diureses. Pt with lower ext edema but no pitting any more as was present in ED. 07/02/23 negative for edema Apparently home diuretic was HCTZ, 07/02/23 now on po Lasix Troponin trended negative x 3, ECHO showed apical dyskinesis so order placed 07/02/23 for NM stress test Probably some COPD component to hypoxia, O2 per protocol, CXR tomorrow would be helpful to assess for improvement, 07/02/23 on RA, SpO2 low 90s continue plavix, eliquis and atorvastatin 07/02/23 Will continue and added Entresto per Nephrology, holding hydralazine, will decrease Isosorb to BID from TID. Blood pressure this am 119/66, 98% 07/03/23 BP this am 116/73, creatinine 1.74, BUN 24, Pt to have NM stress test today 07/03/23 1245, NM stress negative, may f/u outpatient. Cardiology to sign off (2) Essential hypertension Current Visit: Yes Status: Acute Plan: Continue carvedilol, stop hydralazine, decrease frequency of isosorbide, and stop clonidine
--- NOTE | 2023-07-03 13:50 | P.PN ---
Date of Service: 07/03/23 Subjective: Stress test this AM: Large fixed defect in the LV apex noted. This is likely scar tissue from a prior infarction. EF 37% Feeling better this AM, conversing well, alert and oriented ROS: 10 point ROS as noted above, otherwise negative Physical exam GEN: Alert, oriented, NAD HEENT: Normal conjunctiva, sclera anicteric CV: Regular rate and rhythm, trace LE edema Pulm: Nonlabored respirations on RA ABD: Soft, nontender, nondistended MSK: No joint tenderness Integumentary: No rashes Neuro: Normal speech, normal affect Vitals: BP 103/74, HR 79, RR 16, RR 16, Temp 9706, O2 saturation 98% on RA Assessment: Acute hypoxic respite failure Acute on chronic systolic/heart failure CKD History of CAD Hypertension Hyperlipidemia Recent left lower extremity DVT COPD Plan: Acute hypoxic respite failure Acute on chronic systolic/HFrEF History of CAD Had recent hospitalization 05/11/2023 for ARDS, CHF exacerbation at [facility] Echo performed 05/21/2023 at [facility] showed mildly reduced EF 45 to 49%, mild concentric left ventricular hypertrophy, akinetic apical segments, mild anterior septum NM stress test showing (07/03): Large fixed defect in the LV apex noted. This is likely scar tissue from a prior infarction. EF 37% Lower extremity edema improving, shortness of breath mild improving On room air Continue PO lasix CXR mild improvement Cardiology consult, echocardiogram ordered-per cardiology showed apical dyskinesis reduced EF 37% on NM stress test (07/03) Plan for inpatient stress test Reportedly had a heart catheterization earlier in the year with balloon angioplasty of unknown vessel Troponins trended negative Still having JALLOH and orthopnea Nephrology added entresto, renal fx stable BP running low now, Stopped hydralazine (07/01) and clonidine 07/03 Isosorbide decreased from TID to BID dosing 07/02 May need further adjustment of BP meds CKD Unknown renal function baseline, Cr was 1.6 at DC from [facility] Continue entresto per nephrology Renal function stable Hypertension Nephrology added entresto, renal fx stable BP running low now, Stopped hydralazine (07/01) and clonidine 07/03 Isosorbide decreased from TID to BID dosing 07/02 May need further adjustment of BP meds Hyperlipidemia Recent left lower extremity DVT Home medications have been continued including Eliquis COPD As needed nebulizer treatments VTE: Continue Eliquis Code: Full Dispo: 24 to 48 hours Time Spent Managing Pts Care (In Minutes): 35
--- NOTE | 2023-07-03 14:04 | EKG ---
Test Date: 2023-06-28 Test Time: 09:00:55 Coiled Tubing Supervisor: GHAZALA MEASUREMENT RESULTS: Intervals: Rate: 82 HI: 178 QRSD: 96 QT: 382 QTc: 446 Oneco: P: 66 HI: 178 QRS: 59 T: 88 INTERPRETIVE STATEMENTS: Normal sinus rhythm T wave abnormality, consider lateral ischemia Abnormal ECG Compared to ECG 05/19/2023 03:36:55 Prolonged QT interval no longer present T-wave abnormality still present Possible ischemia still present Electronically Signed On 07-03-23 13:46:32 MAIL SORTER by Dat Hamilton
--- NOTE | 2023-07-03 14:25 | TREADPHA ---
DX: CHEST PAIN, CONGESTIVE HEART FAILURE EXACERBATION Date of Study: 07/03/2023 Ht: 5' 11 " Wt: 199 lb 0 oz Consulting Physician: GALILEA MEDICATIONS: NORCO, ELIQUIS, LIPITOR, COREG, PLAVIX, LASIX, ISORDIL, ZOFRAN HISTORY: 47 YEAR OLD MALE WITH COMPLAINTS OF CHEST PAIN. HISTORY OF CONGESTIVE HEART FAILURE, HYPERTENSION, AND HIGH CHOLESTEROL PHYSICIAL EXAMINATION: RESTING B.P.: 122/74 RESTING H.R.: 71 RESTING EKG: NORMAL SINUS RHYTHM PROTOCOL: PHARMACOLOGIC EXERCISE TIME: 3:30 B.P. AT [facility] STRESS: 132/66 IMPRESSION: LEXISCAN INJECTED. CARDIOLITE INJECTED - SEE NUCLEAR MEDICINE REPORT. PREMATURE VENTRICULAR COMPLEXES NOTED PRIOR TO LEXISCAN. NO SUPRAVENTRICULAR TACHYCARDIA, VENTRICULAR TACHYCARDIA, PREMATURE ATRIAL COMPLEXES. NO CHEST PAIN OR SHORTNESS OF BREATH. ONE SECOND PAUSE NOTED. NO ELECTROCARDIOGRAM CHANGES WITH LEXISCAN.
--- NOTE | 2023-07-03 17:40 | P.PN ---
Date of Service: 07/03/23 Vital Signs Temp Pulse Resp BP Pulse Ox 97.3 F 66 16 127/88 98 07/03/23 16:00 07/03/23 16:00 07/03/23 16:00 07/03/23 16:00 07/03/23 16:00 Medications Hydrocodone Bitart/Acetaminophen (Hydrocodone/Apap 5/325 Mg Tab) 1 tab PO Q6H PRN PRN Reason: Pain scale 5-7 (Moderate) Last Admin: 07/01/23 10:01 Dose: 1 tab Apixaban (Apixaban 5 Mg Tablet) 5 mg PO BID [facility] Last Admin: 07/03/23 10:05 Dose: 5 mg Atorvastatin Calcium (Atorvastatin 40 Mg Tab) 40 mg PO BEDTIME [facility] Last Admin: 07/02/23 21:32 Dose: 40 mg Carvedilol (Carvedilol 25 Mg Tab) 25 mg PO BID 6AM 6PM [facility] Last Admin: 07/03/23 05:18 Dose: Not Given Clopidogrel Bisulfate (Clopidogrel 75 Mg Tablet) 75 mg PO DAILY [facility] Last Admin: 07/03/23 10:04 Dose: 75 mg Furosemide (Furosemide 40 Mg Tablet) 40 mg PO DAILY [facility] Last Admin: 07/03/23 10:03 Dose: 40 mg Isosorbide Dinitrate (Isosorbide Dinit 5 Mg Tab) 10 mg PO BID [facility] Last Admin: 07/03/23 10:06 Dose: 10 mg Lidocaine (Lidocaine 4% Patch) 1 patch TOP Q24H [facility] Ondansetron HCl (Ondansetron 4 Mg/2 Ml Vial) 4 mg IV Q6HP PRN PRN Reason: NAUSEA / VOMITING Microbiology Results 06/28/23 08:34 Nasopharnyx Influenza Type A Antigen Screen - Final 06/28/23 08:34 Nasopharnyx Influenza Type B Antigen Screen - Final Assessment/ Plan: Nephrology Progress Note No Dyspnea No Chest Pain CLBP No Acute Events Overnight Vital Signs, Medications, Blood Work, and Imaging reviewed in the chart NAD. NCAT. MMM. Neck Supple. Normal Respiratory Effort/ Poor A/E. RRR. Abd ND. No C/C. LE Edema none. No Rash. AAO. Normal Speech. LEFT VENTRICULAR WALL MOTION: APICAL DYSKINESIS DOPPLER/COLOR FLOW: SEE BELOW COMMENTS: 1. NORMAL LEFT VENTRICULAR EJECTION FRACTION 50-55% 2. APICAL DYSKINESIS 3. LEFT ATRIAL ENLARGEMENT 4. MILD MITRAL REGURGITATION 5. MILD TRICUSPID REGURGITATION EXAM DESCRIPTION: RADChest Single View06/30/2023 10:39 am CLINICAL HISTORY: eval pulmonary edema/chf COMPARISON: Chest Single View dated 06/28/2023; Chest Single View dated 05/19/2023; Chest Single View dated 04/29/2023; Chest Single View dated 07/21/2021 TECHNIQUE: Portable AP view of the chest. FINDINGS: The lungs show no focal consolidation. Central interstitial prominence, improved since the prior exam. No pneumothorax or effusion. The cardiomediastinal contours are unremarkable. IMPRESSION: Improvement of central interstitial prominence, suggesting improving central congestion/CHF. Assessment & Plan Stage I FREDDIE likely CRS CKD IIIa with Proteinuria -No NSAIDs Hyponatremia -Continue Lasix Hypokalemia -Replete prn HTN with CKD/ CHF complicated by hypotension -Continue Coreg Systolic CHF, A/C -Continue Lasix -Continue Entresto as tolerated Anemia in chronic illness -Monitor H&H -PRBC prn Case reviewed with hospitalist team
[2023-07-03] MEDS: ATORVASTATIN 40 MG TAB PO SCH (20:12)
[2023-07-03] MEDS: HYDROCODONE/APAP 5/325 MG TAB PO PRN (23:38)
[2023-07-04 04:29] VITALS: TEMP 97.3
[2023-07-04] MEDS: carvediloL 25 MG TAB PO SCH ×2 (05:21→17:10)
[2023-07-04 07:28] VITALS: O2SAT 95
[2023-07-04] MEDS ORDERED: LIDOCAINE 4% PATCH TOP SCH (08:00)
[2023-07-04] MEDS: CLOPIDOGREL 75 MG TABLET PO SCH (08:57)
[2023-07-04] MEDS: APIXABAN 5 MG TABLET PO SCH (08:57)
[2023-07-04] MEDS: ISOSORBIDE DINIT 5 MG TAB PO SCH (08:58)
[2023-07-04] MEDS: FUROSEMIDE 40 MG TABLET PO SCH (08:58)
[2023-07-04] MEDS: SACUBITRIL/VALSARTAN 24/26 MG TAB PO SCH (08:58)
--- NOTE | 2023-07-04 14:16 | P.PN ---
Date of Service: 07/04/23 Subjective: Stress test this AM: Large fixed defect in the LV apex noted. This is likely scar tissue from a prior infarction. EF 37% Feeling well, c/o intermittent chest pain. BP soft, will consult Dr. Hamilton for recommendations. ROS: 10 point ROS as noted above, otherwise negative Physical exam GEN: Alert, oriented, NAD HEENT: Normal conjunctiva, sclera anicteric CV: Regular rate and rhythm, trace LE edema Pulm: Nonlabored respirations on RA ABD: Soft, nontender, nondistended MSK: No joint tenderness Integumentary: No rashes Neuro: Normal speech, normal affect Vitals: BP 101/57, HR 69, RR 16, Temp 97.3, O2 saturation 98% RA, BP soft, adjusting medications at this time, continue monitoring Assessment: Acute hypoxic respite failure Acute on chronic systolic/heart failure CKD History of CAD Hypertension Hyperlipidemia Recent left lower extremity DVT COPD Plan: Acute hypoxic respite failure Acute on chronic systolic/HFrEF History of CAD Had recent hospitalization 05/11/2023 for ARDS, CHF exacerbation at [facility] Echo performed 05/21/2023 at [facility] showed mildly reduced EF 45 to 49%, mild concentric left ventricular hypertrophy, akinetic apical segments, mild anterior septum NM stress test showing (07/03): Large fixed defect in the LV apex noted. This is likely scar tissue from a prior infarction. EF 37% Lower extremity edema improving, shortness of breath mild improving On room air Continue PO lasix CXR mild improvement Cardiology consult, echocardiogram ordered-per cardiology showed apical dyskinesis reduced EF 37% on NM stress test (07/03) Plan for inpatient stress test Reportedly had a heart catheterization earlier in the year with balloon angioplasty of unknown vessel Troponins trended negative Still having JALLOH and orthopnea Nephrology added entresto, renal fx stable BP running low now, Stopped hydralazine (07/01) and clonidine 07/03 Isosorbide decreased from TID to BID dosing 07/02 May need further adjustment of BP meds CKD Unknown renal function baseline, Cr was 1.6 at DC from [facility] Continue entresto per nephrology Renal function stable Hypertension Nephrology added entresto, renal fx stable BP running low now, Stopped hydralazine (07/01) and clonidine 07/03 Isosorbide decreased from TID to BID dosing 07/02 May need further adjustment of BP meds Hyperlipidemia Recent left lower extremity DVT Home medications have been continued including Eliquis COPD As needed nebulizer treatments VTE: Continue Eliquis Code: Full Dispo: 24 to 48 hours Time Spent Managing Pts Care (In Minutes): 35
[2023-07-04 16:30] VITALS: BP 98/55
--- NOTE | 2023-07-04 18:14 | P.DS ---
Admission Date: 06/28/23 Discharge Date: 07/04/23 Disposition: DC HOME/HOME HEALTH CARE Discharge Condition: FAIR Reason for Admission: CHF exacerbation Brief History of Present Illness: 47-year-old male with history of chronic systolic congestive heart failure, CAD, left lower extremity DVT, CKD, COPD, hypertension presented to the emergency department with complaint of shortness of breath and chest pain. He also reported he is been having swelling of his legs. He was recently admitted at [facility] on 05/19/2023 for ARDS, acute on chronic systolic congestive heart failure, FREDDIE, DVT. He required intubation while there. In the ER he was requiring nasal cannula oxygen to maintain saturations greater than 90%. His labs were significant for hemoglobin of 8.4 hematocrit 25.4 creatinine 1.78 GFR 46 lactic acid 0.9 BNP 13,542. Chest x-ray showed moderate bilateral pulmonary opacities, small pleural effusions heart is mildly to moderately enlarged, suspected CHF. He was given IV Lasix in the ED and patient admitted for further management of acute on chronic systolic Heart Failure and acute Hypoxic Respite Failure. Hospital Course: Assessment: Acute hypoxic respite failure Acute on chronic systolic/heart failure CKD History of CAD Hypertension Hyperlipidemia Recent left lower extremity DVT COPD Patient was admitted to the medical floor and the following medical problems addressed: Acute hypoxic respite failure Acute on chronic systolic/HFrEF History of CAD Had recent hospitalization 05/11/2023 for ARDS, CHF exacerbation at [facility] Echo performed 05/21/2023 at [facility] showed mildly reduced EF 45 to 49%, mild concentric left ventricular hypertrophy, akinetic apical segments, mild anterior septum NM stress test showing (07/03): Large fixed defect in the LV apex noted. This is likely scar tissue from a prior infarction. EF 37%. Echocardiogram done during this hospital stay showed EF of 50 to 55%. Lower extremity edema and shortness of breath resolved with IV Lasix. He was weaned off oxygen to room air. IV Lasix transition to oral Lasix and dose titrated to 40 mg daily. Cardiology consulted, patient was seen by Dr. Hamilton who assisted with management. Echocardiogram during this hospital stay showed apical dyskinesis Dr. Hamilton recommended inpatient stress test which showed fixed defect Reportedly had a heart catheterization earlier in the year with balloon angioplasty of unknown vessel Troponins trended negative. Patient was initially hypertensive but developed episodes of hypotension. Initially started on Entresto which was discontinued. Other antihypertensives including hydralazine and clonidine were also discontinued and isosorbide dose decreased to 10 mg daily. Blood pressure stabilized with these measures. CKD Unknown renal function baseline, Cr was 1.6 at [facility] from [facility] Entresto discontinued Renal function was stable with diuresis. Hypertension Patient developed episodes of hypotension, Stopped hydralazine (07/01) and clonidine 07/03 Isosorbide decreased to 10 mg daily and Entresto discontinued. Blood pressure stabilized with these measures. Hyperlipidemia Recent left lower extremity DVT Home medications have been continued including Eliquis COPD As needed nebulizer treatments. Chronic back pain This was managed with Manilla and lidocaine. [employer] TNT reviewed and noted patient follows up with a pain management doctor who prescribed him Manilla 7.5 mg every month. Vital Signs/Physical Exam: Temp Pulse Resp BP Pulse Ox 97.3 F 72 16 98/55 L 98 07/04/23 16:00 07/04/23 16:00 07/04/23 16:00 07/04/23 16:00 07/04/23 16:00 General: Alert, In no apparent distress, Oriented x3 HEENT: Mucous membr. moist/pink Neck: Supple, JVD not distended Respiratory: Clear to auscultation bilaterally, Normal air movement Cardiovascular: No edema, Regular rate/rhythm, Normal S1 S2 Gastrointestinal: Normal bowel sounds, Soft and benign, Non-distended, No tenderness Musculoskeletal: No swelling, No tenderness Integumentary: No rashes, No cyanosis Neurological: Normal speech, Normal strength at 5/5 x4 extr, Cranial nerves 3-12 intact Laboratory Data at Discharge: WBC 9.30 thou/uL (4.3-10.9) 07/01/23 03:20 Hgb 10.6 g/dL (13.6-17.9) L 07/01/23 03:20 Hct 31.8 % (39.6-49.0) L 07/01/23 03:20 Plt Count 243 thou/uL (152-406) 07/01/23 03:20 PT 23.1 SECONDS (9.5-12.5) H 06/28/23 08:35 INR 2.15 06/28/23 08:35 Sodium 135 mEq/L (136-145) L 07/03/23 01:55 Potassium 4.3 mEq/L (3.5-5.1) 07/03/23 01:55 BUN 24 mg/dL (7-18) H 07/03/23 01:55 Creatinine 1.74 mg/dL (0.70-1.30) H 07/03/23 01:55 Glucose 124 mg/dL (74-106) H 07/03/23 01:55 Uric Acid 6.8 mg/dL (3.5-7.2) 07/03/23 01:55 Phosphorus 3.8 mg/dL (2.5-4.9) 07/03/23 01:55 Magnesium 1.6 mg/dL (1.6-2.4) 06/28/23 08:35 Total Bilirubin 0.6 mg/dL (0.2-1.0) 06/28/23 08:35 AST 7 U/L (15-37) L 06/28/23 08:35 ALT 16 U/L (16-61) 06/28/23 08:35 Alkaline Phosphatase 67 U/L (45-117) 06/28/23 08:35 Home Medications: Atorvastatin Calcium [Lipitor] 40 mg PO BEDTIME 06/29/23 Carvedilol [Coreg] 25 mg PO BID 06/29/23 Clopidogrel Bisulfate [Plavix*] 75 mg PO DAILY 06/29/23 Ipratropium/Albuterol Sulfate [Combivent Respimat 20-100 Mcg] 2 puff IH DAILY PRN 06/29/23 Omeprazole [Prilosec] 40 mg PO DAILY 07/03/23 Apixaban [Eliquis] 5 mg PO BID #60 tab 07/04/23 Furosemide [Lasix*] 40 mg PO DAILY #30 tab 07/04/23 Isosorbide Dinit [Isordil*] 10 mg PO DAILY #30 tab 07/04/23 Lidocaine 4% Patch [Lidoderm 5% Patch*] 1 patch TOP Q24H #30 pat 07/04/23 New Medications: Apixaban [Eliquis] 5 mg PO BID #60 tab Isosorbide Dinit [Isordil*] 10 mg PO DAILY #30 tab Furosemide [Lasix*] 40 mg PO DAILY #30 tab Lidocaine 4% Patch [Lidoderm 5% Patch*] 1 patch TOP Q24H #30 pat Diet: AHA Activity: Ad raji Followup: Lauri Escudero MD [Primary Care Provider] - Dat Hamilton MD [ACTIVE - CAN ADMIT] - (within 2 to 4 weeks) Time spent managing pt's care (in minutes): 38
--- NOTE | 2023-07-04 20:53 | P.PN ---
Date of Service: 07/04/23 Vital Signs Temp Pulse Resp BP Pulse Ox 97.3 F 72 16 98/55 L 98 07/04/23 16:00 07/04/23 16:00 07/04/23 16:00 07/04/23 16:00 07/04/23 16:00 Microbiology Results 06/28/23 08:34 Nasopharnyx Influenza Type A Antigen Screen - Final 06/28/23 08:34 Nasopharnyx Influenza Type B Antigen Screen - Final Assessment/ Plan: Nephrology Progress Note No Dyspnea No Chest Pain CLBP No Acute Events Overnight Vital Signs, Medications, Blood Work, and Imaging reviewed in the chart NAD. NCAT. MMM. Neck Supple. Normal Respiratory Effort/ Poor A/E. RRR. Abd ND. No C/C. LE Edema none. No Rash. AAO. Normal Speech. LEFT VENTRICULAR WALL MOTION: APICAL DYSKINESIS DOPPLER/COLOR FLOW: SEE BELOW COMMENTS: 1. NORMAL LEFT VENTRICULAR EJECTION FRACTION 50-55% 2. APICAL DYSKINESIS 3. LEFT ATRIAL ENLARGEMENT 4. MILD MITRAL REGURGITATION 5. MILD TRICUSPID REGURGITATION EXAM DESCRIPTION: RADChest Single View06/30/2023 10:39 am CLINICAL HISTORY: eval pulmonary edema/chf COMPARISON: Chest Single View dated 06/28/2023; Chest Single View dated 05/19/2023; Chest Single View dated 04/29/2023; Chest Single View dated 07/21/2021 TECHNIQUE: Portable AP view of the chest. FINDINGS: The lungs show no focal consolidation. Central interstitial prominence, improved since the prior exam. No pneumothorax or effusion. The cardiomediastinal contours are unremarkable. IMPRESSION: Improvement of central interstitial prominence, suggesting improving central congestion/CHF. Assessment & Plan Stage I FREDDIE likely CRS CKD IIIa with Proteinuria -No NSAIDs Hyponatremia -Continue Lasix Hypokalemia -Replete prn HTN with CKD/ CHF complicated by hypotension -Continue Coreg Systolic CHF, A/C -Continue Lasix -Continue Entresto as tolerated Anemia in chronic illness -Monitor H&H -PRBC prn Case reviewed with hospitalist team
[2023-07-05] MEDS ORDERED: ISOSORBIDE DINIT 5 MG TAB PO SCH (09:00)
== END 2023-07-04 20:18 | disposition home health service (06) | DRG 291 ==
LOC: ER 08:10 → ERHOLD 11:40 → 2ND 17:12
PROVIDERS: ADMIT Hospitalist; ATTEND Internal Medicine
DX: I13.0 Hypertensive heart and chronic kidney disease with heart failure and stage 1 through stage 4 chronic kidney disease, or unspecified chronic kidney disease (principal); I50.23 Acute on chronic systolic (congestive) heart failure; J96.01 Acute respiratory failure with hypoxia; N17.9 Acute kidney failure, unspecified; E87.1 Hypo-osmolality and hyponatremia; N18.31 Chronic kidney disease, stage 3a; D63.1 Anemia in chronic kidney disease; E78.5 Hyperlipidemia, unspecified; D63.8 Anemia in other chronic diseases classified elsewhere; E87.6 Hypokalemia; I25.5 Ischemic cardiomyopathy; I25.10 Atherosclerotic heart disease of native coronary artery without angina pectoris; F17.210 Nicotine dependence, cigarettes, uncomplicated; Z60.2 Problems related to living alone; Z88.5 Allergy status to narcotic agent; Z88.8 Allergy status to other drugs, medicaments and biological substances; Z79.52 Long term (current) use of systemic steroids; Z79.02 Long term (current) use of antithrombotics/antiplatelets; Z79.01 Long term (current) use of anticoagulants; Z11.52 Encounter for screening for COVID-19; Z79.82 Long term (current) use of aspirin; Z79.899 Other long term (current) drug therapy; Z86.718 Personal history of other venous thrombosis and embolism
CPT/HCPCS: 36415; 71045; 78452; 80048; 80076; 81001; 82043; 82570; 82805; 83605; 83735; 83880; 84100; 84156; 84484; 84550; 85025; 85610; 87804; 87811; 93005; 93017; 93306; 96374; 97116; 97163; 97530; 99285; A9500; J1940; J2001; J2785

== ENCOUNTER 2023-08-18 04:49 | Inpatient (IN) | payer OTHER ==
[2023-08-18 05:37] LABS: Arterial Blood Carboxyhemoglob 2.5 % (0-1.5); Blood Gas Oxyhemoglobin 95.3 % (94-97); Blood O2 Saturation 99.4 % (92-98.5)
[2023-08-18 05:42] LABS: Hematocrit 32.6 % (39.6-49.0); Lymphocytes % 11.3 % (15.3-44.8); MCV 83.2 fL (80-100); Platelets 145 thou/uL (152-406); RBC Red Blood Cell Count 3.92 M/uL (4.33-5.43)
[2023-08-18] MEDS ORDERED: LEVALBUTEROL 1.25 MG/3 ML NEB ONE (05:50)
[2023-08-18] MEDS ORDERED: dexAMETHasone 10 MG/ML VIAL ONE (05:51)
[2023-08-18] MEDS ORDERED: NITROGLYCERIN 1 GM PKT TD ONE (05:51)
[2023-08-18] MEDS ORDERED: FAMOTIDINE 20 MG/2 ML VIAL IV ONE (05:51)
[2023-08-18] MEDS ORDERED: FUROSEMIDE 20 MG/ 2ML VIAL ONE (05:51)
[2023-08-18 05:53] LABS: Protime INR 1.15
[2023-08-18 06:02] LABS: Bilirubin Direct 0.3 mg/dL (0-0.2); Bilirubin Indirect, Calculated 0.3 mg/dL (0.2-0.8); Bilirubin Total 0.6 mg/dL (0.2-1.0); Potassium 3.8 mEq/L (3.5-5.1); Protein, Total 7.3 g/dL (6.4-8.2)
[2023-08-18 06:03] LABS: Albumin 3.4 g/dL (3.4-5.0); Magnesium 2.3 mg/dL (1.6-2.4); Troponin High Sensitivity 41.8 pg/mL (<58.9)
--- NOTE | 2023-08-18 06:08 | ER ---
Nurse's Notes [facility] Name: Lauri Redmond Age: 48 yrs Sex: Male : 1975 Arrival Date: 08/18/2023 Time: 04:49 Bed 3 Private MD: Diagnosis: Combined systolic (congestive) and diastolic (congestive) heart failure;COPD/ Chronic obstructive pulmonary disease with (acute) exacerbation;Respiratory failure, unspecified, unspecified whether with hypoxia or hypercapnia;Hypoxemia;Essential (primary) hypertension Presentation: 08/18 04:54 Chief complaint: EMS states: Brought in on BiPap for SOB. Noted to be tripoding. Pt la4 reports hx of COPD exacerbation. Given 125mg Solumedrol, ATrovent x1, Albuterol x3 with no relief. Coronavirus screen: Vaccine status:. Ebola Screen: Patient negative for fever greater than or equal to 101.5 degrees Fahrenheit, and additional compatible Ebola Virus Disease symptoms Patient denies exposure to infectious person. Patient denies travel to an Ebola-affected area in the 21 days before illness onset. Initial Sepsis Screen: Does the patient meet any 2 criteria? RR > 20 per min. HR > 90 bpm. Yes Does the patient have a suspected source of infection? No. Patient's initial sepsis screen is negative. Risk Assessment: Do you want to hurt yourself or someone else? Patient reports no desire to harm self or others. Onset of symptoms was August 18, 2023. Care prior to arrival: Medication(s) given: Albuterol Neb x 3, Atrovent Neb x 1, solumedrol 125mg IV initiated. 18 GA, in the right antecubital area, Med neb given. Oxygen administered. via CPAP or BiPAP. Activity prior to arrival: Hyperventilating. 04:54 Method Of Arrival: EMS: [facility] la4 04:54 Acuity: NORMA 1 la4 Triage Assessment: 04:54 General: Appears distressed, uncomfortable, slender, tripod position. Behavior is la4 agitated, anxious, Smells of cigarette smoke. Pain: Complains of pain in chest Pain does not radiate. Pain currently is 10 out of 10 on a pain scale. Quality of pain is described as tight. 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 Cardiovascular: Heart tones S1 S2 Capillary refill < 3 seconds is brisk fingers Pulses are all present. Edema is absent. Rhythm is sinus rhythm. Respiratory: Airway is patent Trachea midline Respiratory effort is even, labored, using tripod position, Respiratory pattern is symmetrical, tachypnea Patient placed on BiPAP: Inspiratory Pressure: 18 Expiratory (EPAP) Pressure: 10 FiO2%: 100 Respiratory Rate: 16. Historical: - Allergies: 04:54 Tylenol; jb4 04:54 Lortab; jb4 04:54 Vicodin; jb4 04:54 "Basically any generic thing for pain"; jb4 - Home Meds: 04:54 Eliquis 5 mg Oral tablet 2 times per day [Active]; hydrocodone-acetaminophen 7.5-325 mg jb4 Oral tab 1 tab every 4 hours [Active]; isosorbide dinitrate 10 mg Oral tablet 2 times per day [Active]; Clonidine Oral [Active]; carvedilol oral [Active]; atorvastatin oral [Active]; - PMHx: 04:54 Hypertension; Back pain; COPD (Back pain); CHF (Back pain); ID (Back pain); CVA (Back jb4 pain); 05:03 Clot in heart; jb4 - Immunization history:: Adult Immunizations not up to date. - Social history:: Smoking status: Patient reports the use of cigarette tobacco products, smokes more than three packs cigarettes per day. - Family history:: not pertinent. - Code Status:: Full code. Screenin:30 [facility] ED Fall Risk Assessment (Adult) History of falling in the last 3 months, la4 including since admission No falls in past 3 months (0 pts) Confusion or Disorientation No (0 pts) Intoxicated or Sedated No (0 pts) Impaired Gait No (0 pts) Mobility Assist Device Used No (0 pt) Altered Elimination No (0 pt) Score/Fall Risk Level 0 - 2 = Low Risk Oriented to surroundings, Maintained a safe environment, Provided non-skid footwear, Hourly rounding (assess needs \\T\\ fall precautionary measures) done. Abuse screen: Denies threats or abuse. Denies injuries from another. Nutritional screening: No deficits noted. Tuberculosis screening: No symptoms or risk factors identified. 05:30 Pneumonia Screening: Shortness of Breath (3pts), Chronic Respiratory/Lung Disease la4 (3pts), Hx. of Pneumonia (2pts). Total Score: 3 Pts. or > (High Risk), Charge Nurse notified of patients arrival. Assessment: 05:34 Reassessment: Patient and/or family updated on plan of care and expected duration. Pain la4 level reassessed. Pt remains on BiPAP at this time with FiO2 decreased to 30% with rate of 16/8. No change in status. Family to bedside and pt more cooperative at time. Pt able to sit up in bed more relaxed. No longer sitting in tripod position. HOB up at 90 degrees. Will continue to monitor. Patient states symptoms have improved. General: Appears comfortable, Behavior is calm, cooperative, appropriate for age. Pain: Denies pain. Neuro: [place] Agitation-Sedation Scale (RASS): 0 - Alert and Calm Level of Consciousness is awake, alert, obeys commands, Oriented to person, place, time, situation, Appropriate for age. Cardiovascular: Heart tones S1 S2 Capillary refill < 3 seconds is brisk fingers Pulses Rhythm is sinus rhythm. Respiratory: Airway is patent Trachea midline Respiratory effort is even, unlabored, relaxed, Respiratory pattern is regular, Patient placed on BiPAP: Inspiratory Pressure: 16 Expiratory (EPAP) Pressure: 8 FiO2%: 30 Respiratory Rate: 16 Breath sounds are diminished in right middle lobe, right lower lobe, right posterior middle lobe and right posterior lower lobe Breath sounds with rhonchi in right middle lobe, right lower lobe, right posterior middle lobe and right posterior lower lobe. GI: Abdomen is non-distended, Bowel sounds present X 4 quads. Abd is soft and non tender X 4 quads. : No deficits noted. No signs and/or symptoms were reported regarding the genitourinary system. Derm: No deficits noted. Musculoskeletal: No deficits noted. 06:13 Reassessment: Patient states feeling better. Patient states symptoms have improved. la4 07:23 Reassessment: Patient and/or family updated on plan of care and expected duration. Pain ap3 level reassessed. Patient is alert, oriented x 3, equal unlabored respirations, skin warm/dry/pink. patient resting, eyes closed, respirations even and unlabored. patient appears in no distress at this time. 09:13 General: Report called to REMY Ragland on 4th floor. ap3 Vital Signs: 04:54 BP 173 / 125; Pulse 90; Resp 20; Pulse Ox 100% on BiPAP; FiO2 100 %; Weight 82.55 kg; la4 Height 5 ft. 11 in. ; 05:02 BP 161 / 115; Pulse 107; Resp 27; Temp 97.7(TE); Pulse Ox 100% on BiPAP; FiO2 100 %; jb4 05:30 BP 161 / 105; Pulse 89; Resp 26; Pulse Ox 95% on BiPAP; FiO2 30 %; la4 06:00 BP 149 / 102; Pulse 70; Resp 22; Pulse Ox 93% on BiPAP; FiO2 30 %; la4 07:22 BP 141 / 96; Pulse 72; Pulse Ox 94% on BiPAP; ap3 04:54 Body Mass Index 25.38 (82.55 kg, 180.34 cm) la4 Daniel Coma Score: 05:34 Eye Response: spontaneous(4). Motor Response: obeys commands(6). Verbal Response: la4 oriented(5). Total: 15. ED Course: 04:52 Patient arrived in ED. jessika 04:53 Eamon Stoner MD is Attending Physician. jessika 04:54 Heidi Stafford RN is Primary Nurse. la4 04:54 Arm band placed on Patient placed in an exam room, on a stretcher, on oxygen, on la4 groundwater monitoring technician, on pulse oximetry. 05:07 Triage completed. la4 05:29 XRAY Chest (1 view) In Process Unspecified. EDMS 05:30 Resting quietly. Awaiting lab results, Awaiting radiology results. Awaiting disposition.la4 05:30 Patient has correct armband on for positive identification. Placed in gown. Bed in low la4 position. Call light in reach. Side rails up X2. Provided Education on: [place] of care. 05:30 No provider procedures requiring assistance completed. Inserted saline lock: 18 gauge la4 in left wrist, using aseptic technique. 05:30 Maintain EMS IV. Dressing intact. Good blood return noted. Site clean \\T\\ dry. Gauge \\T\\ la 4 site: right AC 18 gauge PIV. IV is patent, is intact, with fluids infusing freely, with good blood return, Changed dressing on right antecubital saline lock Flushed right antecubital 10ml saline. 05:47 ARTERIAL BLOOD GAS Sent. la4 05:47 BIPAP Sent. la4 05:57 Larry Rice MD is Hospitalizing Provider. [facility] 07:00 Respiratory: Denies shortness of breath Other: Patient found on BIPAP IPAP 16 EPAP 8 eb2 Rate 16 FiO2 .30 iTime 0.90 Rise 3. Patients total rate 18, VT 594 Min. Ventilation 11.0 PIP 15. Patient is 95% with current BIPAP settings, HR 83, Clear/Diminished breath sounds. No distress noted at this time. 07:03 Report given to Grace ALBERTO. la4 08:37 ABG's: Patient ID and date of verified, drawn from right radial artery, Osei's eb2 test done and positive, direct pressure held for 5 minutes, no bleeding noted, patient tolerated well, Other: Results reported to Dr. Rice. 100% read back.. 09:15 O2 via nasal cannula Patient placed on 3LNC per Dr. Rice. Patient has O2 sat of 95% HR eb2 74 RR 18. Clear breath sounds. No distress noted at this time. 09:15 Patient admitted, IV remains in place. ap3 Administered Medications: 06:04 Drug: Decadron - Dexamethasone IVP 10 mg IVP once Route: IVP; Site: right antecubital; la4 08:03 Follow up: Response: No adverse reaction ap3 06:05 Drug: Famotidine IVP 20 mg IVP once; dilute with 10 mL 0.9% NaCl; give over 2 minutes la4 Route: IVP; Site: right antecubital; 08:03 Follow up: Response: No adverse reaction ap3 06:06 Drug: Nitroglycerin Transdermal Ointment 2 % 1 inches Transdermal once Route: la4 Transdermal; Site: anterior chest wall; 06:06 Drug: Furosemide IVP 40 mg IVP once; give over 2 minutes Route: IVP; Site: right la4 antecubital; 08:04 Follow up: Response: No adverse reaction ap3 06:12 Drug: Levalbuterol Inhalation 2.5 mg Inhalation once Route: Inhalation; la4 06:46 Drug: levofloxacin IVPB 500 mg 100 ml IVPB once over 60 mins Volume: 100 ml; Route: la4 IVPB; Infused Over: 60 mins; Site: right antecubital; 08:04 Follow up: IV Status: Completed infusion; IV Intake: 100ml ap3 Medication: 05:30 VIS not applicable for this client. la4 Intake: 08:04 IV: 100ml; Total: 100ml. ap3 Output: 06:55 Urine: 700ml; Total: 700ml. la4 Outcome: 06:07 Decision to Hospitalize by Provider. jessika 09:15 Admitted to Med/surg ap3 09:15 Condition: good 09:15 Condition: good 09:15 Instructed on the need for admit, 09:22 Patient left the ED. ap3 Signatures: Dispatcher [employer] EDMS Eamon Stoner MD MD cha Bryson, James RN RN jb4 Grace Fish RN RN ap3 Kylee Camejo, R/T R/T Heidi Garcia RN RN la4 Corrections: (The following items were deleted from the chart) 05:01 04:54 Allergies: Hydrocodone-Acetaminophen; jb4 jb4
--- NOTE | 2023-08-18 06:08 | EDPHYS ---
Physician Documentation [facility] Name: Lauri Redmond Age: 48 yrs Sex: Male : 1975 Arrival Date: 08/18/2023 Time: 04:49 Bed 3 Private MD: ED Physician Eamon Stoner HPI: 08/18 05:17 This 48 yrs old Male presents to ER via EMS with complaints of dyspnea , jessika hypoxia. 05:17 The patient has shortness of breath at rest. Onset: The symptoms/episode began/occurred jessika just prior to arrival, this morning. Duration: The symptoms are continuous, and are steadily getting worse. The patient's shortness of breath is aggravated by exertion, light activity, supine position, is alleviated by pursed lip breathing, rest, sitting up, application of supplemental oxygen. The patient or guardian reports chest pain that is located primarily in the anterior chest wall, bilaterally. The pain does not radiate. Severity of symptoms: At their worst the symptoms were moderate severe in the emergency department the symptoms are unchanged. Historical: - Allergies: 04:54 Tylenol; jb4 04:54 Lortab; jb4 04:54 Vicodin; jb4 04:54 "Basically any generic thing for pain"; jb4 - Home Meds: 04:54 Eliquis 5 mg Oral tablet 2 times per day [Active]; hydrocodone-acetaminophen 7.5-325 mg jb4 Oral tab 1 tab every 4 hours [Active]; isosorbide dinitrate 10 mg Oral tablet 2 times per day [Active]; Clonidine Oral [Active]; carvedilol oral [Active]; atorvastatin oral [Active]; - PMHx: 04:54 Hypertension; Back pain; COPD (Back pain); CHF (Back pain); OK (Back pain); CVA (Back jb4 pain); 05:03 Clot in heart; jb4 - Immunization history:: Adult Immunizations not up to date. - Social history:: Smoking status: Patient reports the use of cigarette tobacco products, smokes more than three packs cigarettes per day. - Family history:: not pertinent. - Code Status:: Full code. ROS: 05:17 Constitutional: Negative for fever, chills, and weight loss, Eyes: Negative for injury, jessika pain, redness, and discharge, ENT: Negative for injury, pain, and discharge, Neck: Negative for injury, pain, and swelling, Cardiovascular: Negative for chest pain, palpitations, and edema, Abdomen/GI: Negative for abdominal pain, nausea, vomiting, diarrhea, and constipation, Back: Negative for injury and pain, : Negative for injury, bleeding, discharge, and swelling, MS/Extremity: Negative for injury and deformity, Skin: Negative for injury, rash, and discoloration, Neuro: Negative for headache, weakness, numbness, tingling, and seizure, Psych: Negative for depression, anxiety, suicide ideation, homicidal ideation, and hallucinations, Allergy/Immunology: Negative for hives, rash, and allergies, Endocrine: Negative for neck swelling, polydipsia, polyuria, polyphagia, and marked weight changes, Hematologic/Lymphatic: Negative for swollen nodes, abnormal bleeding, and unusual bruising, 05:17 Respiratory: Positive for cough, shortness of breath, wheezing, inspiratory, expiratory, 05:17 Respiratory: Positive for dyspnea on exertion, orthopnea, jessika Exam: 05:18 Constitutional: This is a well developed, well nourished patient who is awake, alert, jessika and in no acute distress. Head/Face: Normocephalic, atraumatic. Eyes: Pupils equal round and reactive to light, extra-ocular motions intact. Lids and lashes normal. Conjunctiva and sclera are non-icteric and not injected. Cornea within normal limits. Periorbital areas with no swelling, redness, or edema. ENT: Nares patent. No nasal discharge, no septal abnormalities noted. Tympanic membranes are normal and external auditory canals are clear. Oropharynx with no redness, swelling, or masses, exudates, or evidence of obstruction, uvula midline. Mucous membranes moist. Neck: Trachea midline, no thyromegaly or masses palpated, and no cervical lymphadenopathy. Supple, full range of motion without nuchal rigidity, or vertebral point tenderness. No Meningismus. Chest/axilla: Normal chest wall appearance and motion. Nontender with no deformity. No lesions are appreciated. Cardiovascular: Regular rate and rhythm with a normal S1 and S2. No gallops, murmurs, or rubs. Normal PMI, no JVD. No pulse deficits. Abdomen/GI: Soft, non-tender, with normal bowel sounds. No distension or tympany. No guarding or rebound. No evidence of tenderness throughout. Back: No spinal tenderness. No costovertebral tenderness. Full range of motion. Male : Normal genitalia with no discharge or lesions. Skin: Warm, dry with normal turgor. Normal color with no rashes, no lesions, and no evidence of cellulitis. MS/ Extremity: Pulses equal, no cyanosis. Neurovascular intact. Full, normal range of motion. Neuro: Awake and alert, GCS 15, oriented to person, place, time, and situation. Cranial nerves II-XII grossly intact. Motor strength 5/5 in all extremities. Sensory grossly intact. Cerebellar exam normal. Normal gait. Psych: Awake, alert, with orientation to person, place and time. Behavior, mood, and affect are within normal limits. 05:18 ECG was reviewed by the Attending Physician. 05:18 Respiratory: the patient does not display signs of respiratory distress, Respirations: normal, no acute changes, Breath sounds: are clear throughout, Respiratory rate: 27 Vital Signs: 04:54 BP 173 / 125; Pulse 90; Resp 20; Pulse Ox 100% on BiPAP; FiO2 100 %; Weight 82.55 kg; la4 Height 5 ft. 11 in. ; 05:02 BP 161 / 115; Pulse 107; Resp 27; Temp 97.7(TE); Pulse Ox 100% on BiPAP; FiO2 100 %; jb4 05:30 BP 161 / 105; Pulse 89; Resp 26; Pulse Ox 95% on BiPAP; FiO2 30 %; la4 06:00 BP 149 / 102; Pulse 70; Resp 22; Pulse Ox 93% on BiPAP; FiO2 30 %; la4 07:22 BP 141 / 96; Pulse 72; Pulse Ox 94% on BiPAP; ap3 04:54 Body Mass Index 25.38 (82.55 kg, 180.34 cm) la4 Daniel Coma Score: 05:34 Eye Response: spontaneous(4). Motor Response: obeys commands(6). Verbal Response: la4 oriented(5). Total: 15. MDM: 04:52 Patient medically screened. jessika 04:53 Patient medically screened. jessika 05:22 Differential diagnosis: Anemia Bronchitis CHF exacerbation, Chronic Obstructive jessika Pulmonary Disease abnormal EKG, acute myocardial infarction, acute pericarditis, coronary artery disease chest wall pain, congestive heart failure costochondritis, esophagitis, gastritis, gastroesophageal reflux disease (GERD), pancreatitis, peptic ulcer disease, pericarditis, pleurisy, pneumonia, pulmonary embolus, stable angina, thoracic aortic disection, unstable angina, Myocardial Infarction pneumonia, pulmonary edema, reactive airway disease, Sepsis Unstable Angina. Antibiotic administration: Levaquin given. HEART Score: History: Moderately Suspicious (1), ECG: Non specific repolarization disturbance / LBTB / PM (1), Age: > 45 and < 65 years (1), Risk Factors: > or = 3 Risk factors for atherosclerotic disease (2), [Hypercholesterolemia] [Hypertension] [+ Family HX] Troponin: < or = 1 x Normal Limit (0). The patient was not given aspirin in the Emergency Department. Not indicated due to patient's past medical history. Differential Diagnosis: Obstructed Airway Bronchitis Influenza Upper Respiratory Infection Viral Syndrome Pneumonia. Immunization status:. Data reviewed: vital signs, nurses notes, lab test result(s), EKG, radiologic studies, plain films. Consideration of Admission/Observation Patient was admitted/placed on observation. Escalation of care including admission/observation considered. I considered the following discharge prescriptions or medication management in the emergency department Medications were administered in the Emergency Department. See MAR. Independent interpretation of the following test(s) in the Emergency Department EKG: See my EKG interpretation above. Test considered but Not performed: CT: no ct chest. Historians other than the Patient: EMS: ems well informed. Care significantly affected by the following chronic conditions: Diabetes, Hypertension, Congestive Heart Failure, Chronic Obstructive Pulmonary Disease. Counseling: I had a detailed discussion with the patient and/or guardian regarding the historical points, exam findings, and any diagnostic results supporting the discharge/admit diagnosis, the presence of at least one elevated blood pressure reading (>120/80) during this emergency department visit, lab results, radiology results, the need for further work-up and treatment in the hospital. 08/18 04:55 Order name: Basic Metabolic Panel; Complete Time: 06:07 08/18 04:55 Order name: CBC with Diff; Complete Time: 05:52 08/18 04:55 Order name: LFT's; Complete Time: 06:07 08/18 04:55 Order name: Magnesium; Complete Time: 06:07 08/18 04:55 Order name: NT PRO-BNP; Complete Time: 06:07 08/18 04:55 Order name: PT-INR; Complete Time: 05:54 [facility] 08/18 04:55 Order name: Troponin HS; Complete Time: 06:07 [facility] 08/18 04:55 Order name: Blood Culture Adult (2) [facility] 08/18 04:55 Order name: Lactate w/ 2H reflex if indic.; Complete Time: 06:07 [facility] 08/18 04:55 Order name: Flu [facility] 08/18 05:37 Order name: ABG Arterial Blood Gas; Complete Time: 05:52 [facility] 08/18 05:41 Order name: SARS-COV-2 RT PCR [facility] 08/18 06:49 Order name: UAM la4 08/18 08:10 Order name: Arterial Blood Gas: repeat ap3 08/18 09:01 Order name: ABG Arterial Blood Gas [facility] 08/18 04:55 Order name: XRAY Chest (1 view) [facility] 08/18 04:55 Order name: BIPAP [facility] 08/18 05:28 Order name: ARTERIAL BLOOD GAS [facility] 08/18 04:55 Order name: EKG; Complete Time: 04:56 [facility] 08/18 07:33 Order name: CONS Physician Consult [facility] 08/18 04:55 Order name: Cardiac monitoring; Complete Time: 05:47 [facility] 08/18 04:55 Order name: EKG - Nurse/Tech; Complete Time: 05:47 [facility] 08/18 04:55 Order name: IV Saline Lock; Complete Time: 05:47 [facility] 08/18 04:55 Order name: Labs collected and sent; Complete Time: 05:47 [facility] 08/18 04:55 Order name: O2 Per Protocol; Complete Time: 05:47 [facility] 08/18 04:55 Order name: O2 Sat Monitoring; Complete Time: 05:47 [facility] 08/18 04:55 Order name: IV Saline Lock - Large Bore; Complete Time: 05:47 [facility] EC:18 Rate is 110 beats/min. Rhythm is regular. QRS Clear is Normal. IA interval is normal. [facility] QRS interval is normal. QT interval is normal. No Q waves. T waves are Normal. No ST changes noted. Clinical impression: Abnormal EKG without significant change and No evidence of ischemia. Interpreted by me. Reviewed by me. Administered Medications: 06:04 Drug: Decadron - Dexamethasone IVP 10 mg IVP once Route: IVP; Site: right antecubital; la4 08:03 Follow up: Response: No adverse reaction ap3 06:05 Drug: Famotidine IVP 20 mg IVP once; dilute with 10 mL 0.9% NaCl; give over 2 minutes la4 Route: IVP; Site: right antecubital; 08:03 Follow up: Response: No adverse reaction ap3 06:06 Drug: Nitroglycerin Transdermal Ointment 2 % 1 inches Transdermal once Route: la4 Transdermal; Site: anterior chest wall; 06:06 Drug: Furosemide IVP 40 mg IVP once; give over 2 minutes Route: IVP; Site: right la4 antecubital; 08:04 Follow up: Response: No adverse reaction ap3 06:12 Drug: Levalbuterol Inhalation 2.5 mg Inhalation once Route: Inhalation; la4 06:46 Drug: levofloxacin IVPB 500 mg 100 ml IVPB once over 60 mins Volume: 100 ml; Route: la4 IVPB; Infused Over: 60 mins; Site: right antecubital; 08:04 Follow up: IV Status: Completed infusion; IV Intake: 100ml ap3 Disposition Summary: 08/18/23 06:07 Hospitalization Ordered Notes: Hospitalization Status: Inpatient Admission jessika Provider: Larry Rice cha Location: Telemetry/MedSurg (Inpatient) jessika Condition: Fair jessika Problem: new jessika Symptoms: have improved jessika Bed/Room Type: Standard jessika Room Assignment: 403(08/18/23 08:39) eb Diagnosis - Combined systolic (congestive) and diastolic (congestive) heart failure jessika - COPD/ Chronic obstructive pulmonary disease with (acute) exacerbation jessika - Respiratory failure, unspecified, unspecified whether with hypoxia or hypercapnia jessika - Hypoxemia jessika - Essential (primary) hypertension jessika Forms: - Medication Reconciliation Form jessika - SBAR form jessika - Leadership Thank You Letter jessika Signatures: Dispatcher [employer] EDEamon Gomez MD MD cha Bryson, James, RN RN Mireya Valentin La'Rea, RN RN la4 Prokisch, Amanda RN ap3 Corrections: (The following items were deleted from the chart) 05:01 04:54 Allergies: Hydrocodone-Acetaminophen; scott chavez 05:41 04:56 SARS-COV-2 Antigen Rapid+I.LAB.BRZ ordered. EDMS EDMS 08:39 06:07 jessika eb
[2023-08-18] MEDS ORDERED: Levofloxacin500mg IV 500 MG/100 ML BAG IV ONE (06:26)
[2023-08-18 07:21] LABS: Specific Gravity 1.007 (1.005-1.030); Urine Bacteria None Seen /HPF (<20); Urine Bilirubin NEGATIVE (Negative); Urine Blood Negative (Negative); Urine Clarity Clear (Clear); Urine Color Colorless (Yellow); Urine Glucose NEGATIVE (Negative); Urine Protein 2+ (Negative); Urine RBC None Seen /HPF (None Seen); Urine Urobilinogen Normal (Normal); Urine pH 6.5 (5.0-7.0)
--- NOTE | 2023-08-18 07:33 | P.HP ---
Certification for Inpatient Patient admitted to: Inpatient Practitioner: I am a practitioner with admitting privileges, knowledge of patient current condition, hospital course, and medical plan of care. Services: Services provided to patient in accordance with Admission requirements found in Title 42 Section 412.3 of the Code of Federal Regulations Patient History Date of Service: 08/18/23 Reason for admission: Acute hypoxic respiratory failure History of Present Illness: 47-year-old male with history of chronic systolic congestive heart failure, CAD, left lower extremity DVT, CKD, COPD, hypertension presented to the emergency department chief manage shortness of breath. Friend at bedside is primary historian, reports orthopnea, started 3 days ago is progressively getting worse. He reports shortness of breath worse with exertion, worse when laying flat, better with oxygen and rest. He reports multiple prior admissions for acute on chronic diastolic heart failure. He report previously requiring intubation for hypoxia and heart failure. He reports history of a DVT on Eliquis. He reports chest pain described as chest pressure, bilateral, nonradiating. No reported fever, diaphoresis, nausea vomiting diarrhea, edema dizziness. ER evaluation hypertensive urgency BP 173 / 125; Pulse 90; Resp 20; Pulse Ox 100% on BiPAP; FiO2 100 %; EKG s 110 beats/min. Rhythm is regular. QRS [place] is Normal. [place] interval is normal. QRS interval is normal. QT interval is normal. No Q waves. T waves are Normal. No ST changes noted. Clinical impression: Abnormal EKG without significant change and No evidence of ischemia. Plan to admit for acute on chronic diastolic heart failure, acute respiratory failure, hypertensive urgency, COPD exacerbation. Laboratory values no leukocytosis, left shift 78.2, microcytic anemia 10.8 32.6, ABG respiratory acidosis pH 7.33, CO2 51, O2 398, acute on chronic kidney injury BUN 13 creatinine 1.66 elevated BNP's 6157, chest x-ray . Allergies No Known Allergies Allergy (Verified 12/31/11 13:25) Home Medications: Atorvastatin Calcium [Lipitor] 40 mg PO BEDTIME 06/29/23 Carvedilol [Coreg] 25 mg PO BID 06/29/23 Clopidogrel Bisulfate [Plavix*] 75 mg PO DAILY 06/29/23 Ipratropium/Albuterol Sulfate [Combivent Respimat 20-100 Mcg] 2 puff IH DAILY PRN 06/29/23 Omeprazole [Prilosec] 40 mg PO DAILY 07/03/23 Apixaban [Eliquis] 5 mg PO BID #60 tab 07/04/23 Furosemide [Lasix*] 40 mg PO DAILY #30 tab 07/04/23 Isosorbide Dinit [Isordil*] 10 mg PO DAILY #30 tab 07/04/23 Lidocaine 4% Patch [Lidoderm 5% Patch*] 1 patch TOP Q24H #30 pat 07/04/23 - Past Medical/Surgical History -: Chronic systolic congestive heart failure -: Hypertension -: COPD -: Left lower extremity DVT -: Hyperlipidemia -: CAD Psychosocial/ Personal History: Lives at home alone - Social History Alcohol use: No CD- Drugs: No Caffeine use: Yes Review of Systems per HPI Physical Examination - Vital Signs Pulse: 61 Pulse Ox (%): 100 - Physical Exam General: Alert, Mild distress, Other (On BiPAP) HEENT: Atraumatic, Normocephalic Respiratory: Normal air movement, Expiratory wheezes, Inspiratory wheezes Cardiovascular: Normal S1 S2, Other (Sinus tachycardia) Capillary refill: <2 Seconds Gastrointestinal: Normal bowel sounds, Soft and benign Musculoskeletal: No clubbing, No swelling Integumentary: No rashes, No breakdown Neurological: Normal speech, Normal strength at 5/5 x4 extr - Studies Laboratory Data (last 24 hrs) 08/18/23 08/18/23 08/18/23 05:20 05:20 05:20 WBC 8.60 Hgb 10.8 L Hct 32.6 L Plt Count 145 L PT 12.6 H INR 1.15 Sodium 138 Potassium 3.8 BUN 13 Creatinine 1.66 H Glucose 115 H Magnesium 2.3 Total Bilirubin 0.6 AST 8 L ALT 15 L Alkaline Phosphatase 67 Microbiology Data (last 24 hrs): 08/18/23 05:20 Nasopharnyx Influenza Type A Antigen Screen - Final 08/18/23 05:20 Nasopharnyx Influenza Type B Antigen Screen - Final Assessment and Plan - Plan Assessment plan On chronic diastolic heart failure unknown ejection fraction Acute hypoxic hypercarbic respiratory failure secondary to COPD exacerbation Hypertensive urgency Bilateral chest pain CAD He report previously requiring intubation for hypoxia and heart failure. hypertensive urgency BP 173 / 125; Pulse 90; Resp 20; Pulse Ox 100% on BiPAP; FiO2 100 %; no leukocytosis, left shift 78.2, ABG respiratory acidosis pH 7.33, CO2 51, O2 398, repeat ABG improved pH 7.41, CO2 41, O2 69.6, elevated BNP's 6157, chest x-ray Cardiology consult, pulmonary consult, BiPAP Trend BNP, ABG, trend troponin Lasix, Xopenex, resume home antihypertensives, antilipid EKG s 110 beats/min. Rhythm is regular. QRS [place] is Normal. [place] interval is normal. QRS interval is normal. QT interval is normal. No Q waves. T waves are Normal. No ST changes noted. Clinical impression: Abnormal EKG without significant change and No evidence of ischemia. Microcytic anemia Trend H&H microcytic anemia 10.8 32.6 History of left lower extremity DVT Chronic anticoagulation Resume Eliquis twice daily Acute kidney injury underlying CKD Likely secondary to prerenal CHF Trend kidney function, acute on chronic kidney injury BUN 13 creatinine 1.66 Diet clear liquids full code DVT Eliquis . Discharge Plan: Home - Advance Directives Does patient have a Living Will: No Does patient have a Durable POA for Healthcare: No - Code Status/Comfort Care Code Status: Full Code Critical Care: No Time Spent Managing Pts Care (In Minutes): 55
[2023-08-18 08:55] LABS: Arterial Blood Carboxyhemoglob 2.4 % (0-1.5); Blood O2 Saturation 93.8 % (92-98.5)
[2023-08-18] MEDS ORDERED: ISOSORBIDE DINIT 5 MG TAB PO SCH (09:00)
[2023-08-18] MEDS ORDERED: HOME MED 1 EA UNK (Omeprazole [Prilosec] 40 MG Capsule.Dr) PO SCH (09:00)
[2023-08-18] MEDS: APIXABAN 5 MG TABLET PO SCH ×2 (10:03→20:25)
[2023-08-18] MEDS: CLOPIDOGREL 75 MG TABLET PO SCH (10:03)
[2023-08-18] MEDS: carvediloL 25 MG TAB PO SCH ×2 (10:03→20:26)
[2023-08-18] MEDS: PANTOPRAZOLE 40MG TABLET PO SCH (10:04)
[2023-08-18] MEDS: LIDOCAINE 4% PATCH TOP SCH (10:04)
[2023-08-18 11:11] VITALS: BMI 25.4
--- NOTE | 2023-08-18 11:11 | P.CNS ---
Date of Consult: 08/18/23 Reason for Consult: Respiratory failure Chief Complaint: Acute hypoxic respiratory failure History of Present Illness: Patient is 48 years of age with heart failure multiple other medical problems as listed in the H&P admitted with shortness of breath worse over the past 3 days also complains of significant orthopnea multiple prior admissions for chronic diastolic heart failure also complaining of some chest pain still apprehensive short of breath active smoker was found to be hypercarbic respiratory failure significantly elevated BNP abnormal renal function Allergies No Known Allergies Allergy (Verified 12/31/11 13:25) Home Medications: Atorvastatin Calcium [Lipitor] 40 mg PO BEDTIME 06/29/23 Carvedilol [Coreg] 25 mg PO BID 06/29/23 Clopidogrel Bisulfate [Plavix*] 75 mg PO DAILY 06/29/23 Ipratropium/Albuterol Sulfate [Combivent Respimat 20-100 Mcg] 2 puff IH DAILY PRN 06/29/23 Omeprazole [Prilosec] 40 mg PO DAILY 07/03/23 Apixaban [Eliquis] 5 mg PO BID #60 tab 07/04/23 Furosemide [Lasix*] 40 mg PO DAILY #30 tab 07/04/23 Isosorbide Dinit [Isordil*] 10 mg PO DAILY #30 tab 07/04/23 Lidocaine 4% Patch [Lidoderm 5% Patch*] 1 patch TOP Q24H #30 pat 07/04/23 Fluticasone/Umeclidin/Vilanter [Trelegy Ellipta 100-62.5-25] 1 each IH DAILY 30 Days #30 aero 08/19/23 - Past Medical/Surgical History Diabetic: No -: Chronic systolic congestive heart failure -: Hypertension -: COPD -: Left lower extremity DVT -: Hyperlipidemia -: CAD -: Pulmonary embolism -: Jaw Surgery 1997 -: eye sx 1997 Psychosocial/ Personal History: Lives at home alone - Social History Smoking Status: Current every day smoker Alcohol use: No CD- Drugs: No Caffeine use: Yes Place of Residence: Home Review of Systems 10-point ROS is otherwise unremarkable General: Weakness Respiratory: Shortness of Breath Physical Examination Temp Pulse Resp BP Pulse Ox 97.7 F 61 22 H 173/90 H 100 08/18/23 05:02 08/18/23 10:18 08/18/23 06:00 08/18/23 10:03 08/18/23 10:18 General: Alert, Mild distress Respiratory: Clear to auscultation bilaterally, Diminished Cardiovascular: No edema, Regular rate/rhythm Gastrointestinal: Normal bowel sounds, Soft and benign Musculoskeletal: No clubbing, No swelling Integumentary: No rashes, No breakdown, No significant lesion Laboratory Data (last 24 hrs) 08/18/23 08/18/23 08/18/23 05:20 05:20 05:20 WBC 8.60 Hgb 10.8 L Hct 32.6 L Plt Count 145 L PT 12.6 H INR 1.15 Sodium 138 Potassium 3.8 BUN 13 Creatinine 1.66 H Glucose 115 H Magnesium 2.3 Total Bilirubin 0.6 AST 8 L ALT 15 L Alkaline Phosphatase 67 - Problems (1) Acute on chronic diastolic heart failure Current Visit: Yes Status: Acute Plan: Patient is 48 years of age recurrent hospital admissions for diastolic heart failure. Again complaining of dyspnea orthopnea x-ray bilateral interstitial changes BNP is elevated chronic renal failure patient is an active smoker may have underlying obstructive airways disease uses bronchodilators at home labs reviewed patient will need IV Lasix previous echo shows normal ejection fraction tress test last month showed fixed apical defect patient will need long-acting bronchodilators most likely has significant underlying obstructive airways disease doubt sepsis Lasix 80 twice daily need for obstructive airways disease with steroids and bronchodilators
[2023-08-18] MEDS: ARFORMOTEROL TARTRATE 15 MCG/2 ML VIAL.NEB NEB SCH ×2 (11:13→19:59)
[2023-08-18] MEDS: METHYLPREDNISOLONE 40 MG INJ IV SCH ×2 (11:31→20:25)
[2023-08-18] MEDS: FUROSEMIDE 40 MG/4 ML VIAL IV SCH ×2 (11:33→16:41)
[2023-08-18] MEDS ORDERED: ALBUTEROL 2.5 MG/3 ML NEB SOL NEB SCH (13:00)
[2023-08-18] MEDS ORDERED: ONDANSETRON 4 MG/2 ML VIAL IV PRN (13:33)
[2023-08-18] MEDS: LEVALBUTEROL 0.63 MG/3 ML NEB NEB SCH ×2 (13:33→19:59)
[2023-08-18] MEDS ORDERED: ZOLPIDEM TARTRATE 5 MG TABLET PO PRN (13:33)
[2023-08-18] MEDS ORDERED: HYDRALAZINE HCL 20 MG/ML VIAL IV PRN ×2 (13:33)
[2023-08-18] MEDS ORDERED: ACETAMINOPHEN 500 MG TAB PO PRN (13:33)
[2023-08-18] MEDS ORDERED: POTASSIUM CL SA 10 MEQ TAB PO ONE (16:00)
--- NOTE | 2023-08-18 19:29 | RAD REPORT ---
EXAM DESCRIPTION: RAD - Chest Single View - 08/18/2023 5:28 am CLINICAL HISTORY: The patient is 48 years old and is Male; COPD;Dyspnea TECHNIQUE: Single view of the chest. COMPARISON: May 19, 2023. FINDINGS: Lungs: Hazy groundglass opacities bilaterally which may represent developing edema or at ypical pneumonia. Pleural space: Unremarkable. No pneumothorax. Heart: The cardiac silhouette is enlarged versus artifact of AP technique. Mediastinum: Unremarkable. Bones/joints: No acute fracture visualized. Upper abdomen: No free air in the visualized upper abdomen. IMPRESSION: Hazy groundglass opacities bilaterally which may represent developing edema or atypical pneumonia. Electronically signed by: Bethanie Farnsworth MD 08/18/2023 05:45 AM INSTRUMENT TECHNICIAN APPRENTICE Due to temporary technical issues with the PACS/Fluency reporting system, reports are being signed by the in house radiologists without review as a courtesy to insure prompt reporting. The interpreting radiologist is fully responsible for the content of the report.
[2023-08-18] MEDS: ATORVASTATIN 40 MG TAB PO SCH (20:25)
[2023-08-19] MEDS: LEVALBUTEROL 0.63 MG/3 ML NEB NEB SCH ×2 (01:34→07:23)
[2023-08-19 06:51] LABS: Absolute Lymphocytes (CBC) 0.6 K/uL (0.7-4.9); Hematocrit 36.1 % (39.6-49.0); Lymphocytes % 3.5 % (15.3-44.8); MCV 82.8 fL (80-100); MPV 10.3 fL (7.6-11.3); Platelets 193 thou/uL (152-406); RBC Red Blood Cell Count 4.36 M/uL (4.33-5.43)
[2023-08-19 07:11] LABS: Magnesium 2.3 mg/dL (1.6-2.4); Potassium 3.6 mEq/L (3.5-5.1)
[2023-08-19] MEDS: ARFORMOTEROL TARTRATE 15 MCG/2 ML VIAL.NEB NEB SCH ×2 (07:23→19:53)
--- NOTE | 2023-08-19 08:59 | RAD REPORT ---
EXAM DESCRIPTION: RAD - Chest Single View - 08/19/2023 8:21 am CLINICAL HISTORY: CHF COMPARISON: Chest Single View dated 08/18/2023; Chest Single View dated 06/30/2023; Chest Single View dated 06/28/2023; Chest Single View dated 05/19/2023 FINDINGS: Lines: None. Lungs: No evidence of edema or pneumonia. Improved aeration from prior. Pleural: No significant pleural effusions or pneumothorax. Cardiac: Similar size and configuration. Mediastinum: Within normal limits. Bones: No acute fractures. Other: None IMPRESSION: Improved aeration compared with 08/18/2023. Vascular prominence has improved from yester day.
[2023-08-19] MEDS: APIXABAN 5 MG TABLET PO SCH ×2 (09:23→21:24)
[2023-08-19] MEDS: PANTOPRAZOLE 40MG TABLET PO SCH (09:23)
[2023-08-19] MEDS: carvediloL 25 MG TAB PO SCH ×2 (09:23→21:24)
[2023-08-19] MEDS: CLOPIDOGREL 75 MG TABLET PO SCH (09:23)
[2023-08-19] MEDS: ISOSORBIDE DINIT 5 MG TAB PO SCH (09:24)
[2023-08-19] MEDS: LIDOCAINE 4% PATCH TOP SCH (09:24)
[2023-08-19] MEDS: FUROSEMIDE 40 MG/4 ML VIAL IV SCH ×2 (09:24→17:03)
[2023-08-19] MEDS: METHYLPREDNISOLONE 40 MG INJ IV SCH (09:25)
[2023-08-19 09:44] LABS: Blood Morphology Comment NOT SEEN (NOT SEEN); Platelet Estimate ADEQ; White Blood Cell Scan OK (OK)
[2023-08-19] MEDS ORDERED: LEVALBUTEROL 0.63 MG/3 ML NEB NEB PRN (09:52)
--- NOTE | 2023-08-19 09:54 | P.PN ---
Subjective Date of Service: 08/19/23 Chief Complaint: COPD exacerbation Subjective: Improving (Patient is doing much better no new complaints) Review of Systems Respiratory: Shortness of Breath Physical Examination - Vital Signs Temperature: 98.1 F Blood Pressure: 136/63 Pulse: 80 Respirations: 18 Pulse Ox (%): 94 - Physical Exam General: Alert, In no apparent distress, Oriented x3 Respiratory: Clear to auscultation bilaterally Cardiovascular: No edema, Regular rate/rhythm - Studies Microbiology Data (last 24 hrs): 08/18/23 05:20 Nasopharnyx Influenza Type A Antigen Screen - Final 08/18/23 05:20 Nasopharnyx Influenza Type B Antigen Screen - Final Assessment And Plan - Current Problems (Diagnosis) (1) Acute on chronic diastolic heart failure Current Visit: Yes Status: Acute Plan: Patient has a history of diastolic heart dysfunction reduce dose of Lasix creatinine is mildly elevated (2) COPD exacerbation Current Visit: Yes Status: Acute Plan: I suspect that he has underlying significant COPD former heavy smoker and will need a long-acting bronchodilator at home I faxed in a prescription in for [facility] discharged on low-dose of prednisone 10 mg twice a day for 2 weeks (3) Pulmonary embolism Current Visit: Yes Status: Acute Plan: Patient has a history of pulmonary embolism repeat a VQ scan Qualifiers: Acute cor pulmonale presence: unspecified
--- NOTE | 2023-08-19 10:11 | P.PN ---
Subjective Date of Service: 08/19/23 Chief Complaint: COPD exacerbation Breathing improved, reports mild shortness of breath with exertion, no reported home O2 - Physical Exam General: AOX3 HEENT: Atraumatic, Normocephalic Respiratory: Normal air movement, Expiratory wheezes, Inspiratory wheezes Cardiovascular: Normal S1 S2, Capillary refill: <2 Seconds Gastrointestinal: Normal bowel sounds, Soft and benign Musculoskeletal: No clubbing, No swelling Integumentary: No rashes, No breakdown Neurological: Normal speech, Normal strength at 5/5 x4 extr Review of Systems per HPI Physical Examination - Vital Signs Temperature: 98.1 F Blood Pressure: 136/63 Pulse: 80 Respirations: 18 Pulse Ox (%): 94 - Studies Microbiology Data (last 24 hrs): 08/18/23 05:20 Nasopharnyx Influenza Type A Antigen Screen - Final 08/18/23 05:20 Nasopharnyx Influenza Type B Antigen Screen - Final Assessment And Plan - Plan Assessment plan On chronic diastolic heart failure unknown ejection fraction Acute hypoxic hypercarbic respiratory failure secondary to COPD exacerbation Hypertensive urgency Bilateral chest pain History CAD He report previously requiring intubation for hypoxia and heart failure. hypertensive urgency BP 173 / 125; Pulse 90; Resp 20; Pulse Ox 100% on BiPAP; FiO2 100 %; no leukocytosis, left shift 78.2, ABG respiratory acidosis pH 7.33, CO2 51, O2 398, repeat ABG improved pH 7.41, CO2 41, O2 69.6, elevated BNP's 6157, chest x-ray Cardiology consult, pulmonary consult, BiPAP Trend BNP 6157, repeat 63933 ABG, trend troponin Lasix, Xopenex, resume home antihypertensives, antilipid EKG s 110 beats/min. Rhythm is regular. QRS [place] is Normal. [place] interval is normal. QRS interval is normal. QT interval is normal. No Q waves. T waves are Normal. No ST changes noted. Clinical impression: Abnormal EKG without significant change and No evidence of ischemia. Microcytic anemia Trend H&H microcytic anemia 10.8 32.6 History of left lower extremity DVT Chronic anticoagulation Resume Eliquis twice daily Acute kidney injury underlying CKD Likely secondary to prerenal CHF Trend kidney function, acute on chronic kidney injury BUN 13 creatinine 1.66 Is on Lasix 40 twice daily due to CHF Nephrology consult Diet clear liquids full code DVT Eliquis . Discharge Plan: Home - Code Status/Comfort Care Code Status: Full Code Critical Care: No Time Spent Managing PTS Care (In Minutes): 35
[2023-08-19] MEDS: predniSONE 20 MG TAB PO SCH (21:24)
[2023-08-19] MEDS: ATORVASTATIN 40 MG TAB PO SCH (21:24)
[2023-08-20 05:15] LABS: MCV 82.6 fL (80-100); MPV 10.9 fL (7.6-11.3); Platelets 206 thou/uL (152-406); RBC Red Blood Cell Count 4.23 M/uL (4.33-5.43)
[2023-08-20 05:36] LABS: Magnesium 2.2 mg/dL (1.6-2.4)
[2023-08-20] MEDS: ARFORMOTEROL TARTRATE 15 MCG/2 ML VIAL.NEB NEB SCH ×2 (07:00→19:40)
--- NOTE | 2023-08-20 07:14 | RAD REPORT ---
EXAM DESCRIPTION: US - Renal Ultrasound-Complete - 08/20/2023 12:53 am CLINICAL HISTORY: Acute renal insufficiency COMPARISON: None FINDINGS: The right kidney measures 11 cm with a normal echotexture. The left kidney measures 9 cm with a normal echotexture. Hydronephrosis is not seen. No gross abnormality of bladder IMPRESSION: Unremarkable renal ultrasound.
[2023-08-20 08:04] LABS: Blood Morphology Comment NOT SEEN (NOT SEEN); Platelet Estimate ADEQ; Toxic Granulation 1+
[2023-08-20] MEDS: APIXABAN 5 MG TABLET PO SCH ×2 (08:54→21:11)
[2023-08-20] MEDS: PANTOPRAZOLE 40MG TABLET PO SCH (08:54)
[2023-08-20] MEDS: predniSONE 20 MG TAB PO SCH ×2 (08:54→21:11)
[2023-08-20] MEDS: carvediloL 25 MG TAB PO SCH ×2 (08:54→21:11)
[2023-08-20] MEDS: ISOSORBIDE DINIT 5 MG TAB PO SCH (08:54)
[2023-08-20] MEDS: CLOPIDOGREL 75 MG TABLET PO SCH (08:54)
[2023-08-20] MEDS: FUROSEMIDE 40 MG/4 ML VIAL IV SCH ×2 (08:55→16:20)
[2023-08-20] MEDS: LIDOCAINE 4% PATCH TOP SCH (08:55)
[2023-08-20 10:06] LABS: UR PROTEIN 19.9 mg/dL (<11.9); Urine Protein/Creatinine Ratio 0.16 ratio (<0.15)
--- NOTE | 2023-08-20 11:45 | CON ---
Date of Consultation: 08/19/2023 Chief Complaint: Acute on chronic kidney injury hypoxemic respiratory failure. History Of Present Illness: The patient is a 48-year-old man with chronic systolic congestive ____ coronary artery disease, lower extremity DVT COPD, hypertension. He presented to [facility] department because of shortness of breath. The patient is it started 3 days prior to this admission and was worse. He has shortness of breath with exertion as well as he r eports some orthopnea. He has acute on has history of DVT nausea, diarrhea, an d dizziness. Workup showed acute ischemia. He was admitted to the hospital ch ronic diastolic congestive heart failure, hypertensive COPD exacerbation. He was found to have leukocytosis Review of Systems: General: The patient denies fever, chills. Eyes: Denies vision changes. Ears, Nose, Mouth, and Throat: Denies sore throat : Denies dysuria, hematuria. All other systems reviewed and all are negative. Past Medical History: Diastolic and systolic congestive heart failure, DVT, hyperlipidemi a, generalized weakness, coronary artery disease, CKD 3. Social History: Denies tobacco, alcohol. Denies drugs. Family History: Unobtainable. Physical Examination: General: The patient is awake, alert, follows commands. Eyes: Anicteric sclerae. EOMI. Ears, Nose, Mouth, and Throat: Oral mucosa moist. No pallor. Neck: Supple. No bruits. Lungs: Diminished breath sounds at bases. Heart: S1, S2. Abdomen: Soft, nontender. No rebound. No guarding. Extremities: No cyanosis edema. Laboratory Data: Hemoglobin PT 12.6, INR 1.15. Sodium 138, potassium 3.8, BUN 13, creati nine 1.66, glucose 115. Magnesium Impression And Plan: 1.The patient congestive heart failure exacerbation, acute has history of heath tolic heart failure, although recent ejection fraction the patient will have further farzad p to evaluate . The patient has history of coronary artery disease and he was complaining of bilateral chest pain. He will have further cardiology workup. The patient will continue Lasix fo r congestive heart failure. Avoid nephrotoxic medication. Renal function has declined likely due to congestive heart failure and cardiorenal syndrome. The patient has acute on chronic kidney injury. Creatinine level is up to 1.66. Plan is to check CK level to rule out rhabdomyolysis. Urinalysis w ill be ordered to rule out active urinary sediment and the patient will have a screening for proteinu mary. 2.The patient has respiratory failure. Continue oxygen supplementation. Continue diuretic. Adjust diuretic dose to fluid balance and urine output. 3.Hypertension. Continue to adjust medication. Plan is to check renal artery Doppler to rule out r enal artery stenosis. EB/MODL Voice ID: [id number] Report ID: [id number]
--- NOTE | 2023-08-20 16:13 | P.PN ---
Subjective Date of Service: 08/20/23 Chief Complaint: COPD exacerbation Subjective: Improving Patient complains of periodic shortness of breath. Continue supportive care. <Adry Duff - Last Filed: 08/20/23 16:07> Date of Service: 08/20/23 <Dalila Guerrero - Last Filed: 08/20/23 21:55> Review of Systems General: Unremarkable Eyes: Unremarkable ENT: Unremarkable Respiratory: Shortness of Breath, Unremarkable Cardiovascular: Unremarkable Gastrointestinal: Unremarkable Genitourinary: Unremarkable Musculoskeletal: Unremarkable Integumentary: Unremarkable Neurological: Unremarkable Lymphatics: Unremarkable <Adry Duff - Last Filed: 08/20/23 16:07> Physical Examination - Vital Signs Temperature: 98.1 F Blood Pressure: 139/82 Pulse: 66 Respirations: 17 Pulse Ox (%): 96 - Physical Exam General: Alert, In no apparent distress, Cooperative HEENT: Atraumatic, PERRLA, EOMI Neck: Supple, JVD not distended Respiratory: Normal air movement, Diminished Cardiovascular: No edema, Regular rate/rhythm, Normal S1 S2 Capillary refill: <2 Seconds Gastrointestinal: Normal bowel sounds, No tenderness Musculoskeletal: No clubbing, No tenderness Integumentary: No rashes Neurological: Normal speech, Normal tone, Normal affect Lymphatics: No axilla or inguinal lymphadenopathy <Adry Duff - Last Filed: 08/20/23 16:07> Assessment And Plan - Plan Interval history. 08/20/2023. Patient seen at bedside. Patient complaining of periodic shortness of breath. Patient's O2 sat at time of assessment within normal limits on room air. Social Secretary, corporate services manager and licensed electrician on board. Kidney functions elevated. Renal ultrasound unremarkable for any acute abnormality. VQ scan ordered by spaghetti machine operator pending. Continue diuresis with Lasix. WBC trending up. Likely steroid-induced. Continue supportive care. Further management per consultants. On chronic diastolic heart failure unknown ejection fraction Acute hypoxic hypercarbic respiratory failure secondary to COPD exacerbation Hypertensive urgency Bilateral chest pain History CAD He report previously requiring intubation for hypoxia and heart failure. hypertensive urgency BP 173 / 125; Pulse 90; Resp 20; Pulse Ox 100% on BiPAP; FiO2 100 %; no leukocytosis, left shift 78.2, ABG respiratory acidosis pH 7.33, CO2 51, O2 398, repeat ABG improved pH 7.41, CO2 41, O2 69.6, elevated BNP's 6157, chest x-ray Cardiology consult, pulmonary consult, BiPAP Trend BNP 6157, repeat 28701 ABG, trend troponin Lasix, Xopenex, resume home antihypertensives, antilipid EKG s 110 beats/min. Rhythm is regular. QRS [place] is Normal. [place] interval is normal. QRS interval is normal. QT interval is normal. No Q waves. T waves are Normal. No ST changes noted. Clinical impression: Abnormal EKG without significant change and No evidence of ischemia. Microcytic anemia Trend H&H microcytic anemia 10.8 32.6 History of left lower extremity DVT Chronic anticoagulation Resume Eliquis twice daily Acute kidney injury underlying CKD Likely secondary to prerenal CHF Trend kidney function, acute on chronic kidney injury BUN 13 creatinine 1.66 Is on Lasix 40 twice daily due to CHF Nephrology consult Diet clear liquids full code DVT Eliquis Discharge Plan: Home Plan to discharge in: Greater than 2 days - Code Status/Comfort Care Code Status Assessed: Yes Physician Review: Patient Assessed, Agree with Above Assessment and Plan Critical Care: No <Adry Duff E - Last Filed: 08/20/23 16:07> - Plan Pt seen and examined. I agree with the note by the WHEEL ALIGNMENT TECHNICIAN. Continue lasix, breathing treatment and oxygen. <Dalila Guerrero - Last Filed: 08/20/23 21:55>
--- NOTE | 2023-08-20 20:25 | RAD REPORT ---
EXAM DESCRIPTION: NM - Vent Perfusion VQ Scan - 08/20/2023 12:30 pm CLINICAL HISTORY: Hx of PET COMPARISON: Chest Single View dated 08/19/2023 TECHNIQUE: Planar perfusion scans were performed following intravenous administration of 6.7 millicu augustine Tc-MAA IV in multiple projections. Examination is correlated with recent chest radiograph. FINDINGS: [place] small peripheral right lower lung perfusion defects, without a wedge-shaped con figuration. No other mismatched segmental perfusion defect. IMPRESSION: No definitive findings for acute pulmonary embolism by PISAPED criteria.
[2023-08-20] MEDS: ATORVASTATIN 40 MG TAB PO SCH (21:11)
--- NOTE | 2023-08-21 00:05 | PN ---
Date of Progress Note: 08/20/2023 Chief Complaint: Acute on chronic kidney. Subjective: Patient presented to the hospital with dyspnea. He is admitted for acute hypoxemic respiratory failure. He is started on diuretics. Patient has history of chronic and systolic congestive heart failure. He is 48-year-old man with coronary artery disease, COPD, hypertension, lower extremity DVT, and systolic congestive heart failure. He presented to Emergency Department because of shortness of breath. He was complaining of dyspnea on exertion and some episodes of orthopnea. He denies nausea, vomiting, dysuria, hematuria. Review of Systems: Constitutional: Denies fever or chills. Eyes: Denies vision changes. Respiratory: Denies wheezing, has shortness of breath, although it is gradually improving. Objective: Lungs: Few rhonchi. Heart: S1-S2. Abdomen: Soft. Extremities: No cyanosis. Slight edema in both ankles. Impression And Plan: 1. Acute kidney injury. Monitor electrolytes and renal panel. The patient has history of diastolic congestive heart failure. Workup is pending to recheck echo and assess ejection fraction. The patient will continue low-sodium diet and plan is to adjust the Lasix according to the urine output. Avoid nephrotoxic medication. Renal function has declined and patient developed acute kidney injury secondary to cardiorenal syndrome. Monitor electrolytes when patient is on diuretic. Plan is to monitor magnesium level. 2. CK level will be checked to assess for possible rhabdomyolysis. Urinalysis was ordered to evaluate for active urinary sediment and to screen for proteinuria. 3. Respiratory failure, hypoxemic. Continue oxygen supplementation. Continue diuretic for the management of congestive heart failure exacerbation. 4. Hypertension. Continue current medication. Plan is to check renal artery Doppler to rule out renal artery stenosis. Medications adjusted. Patient is consulted by reversing mill roller for further cardiac workup. ESSENCE/EMI Voice ID: [id number] Report ID: [id number] MARIN
[2023-08-21 05:30] LABS: Absolute Lymphocytes (CBC) 1.1 K/uL (0.7-4.9); Hematocrit 36.7 % (39.6-49.0); Lymphocytes % 8.7 % (15.3-44.8); MCV 82.5 fL (80-100); MPV 9.8 fL (7.6-11.3); Platelets 177 thou/uL (152-406); RBC Red Blood Cell Count 4.45 M/uL (4.33-5.43)
[2023-08-21 06:13] LABS: Magnesium 2.2 mg/dL (1.6-2.4); Potassium 4.1 mEq/L (3.5-5.1)
[2023-08-21] MEDS: ARFORMOTEROL TARTRATE 15 MCG/2 ML VIAL.NEB NEB SCH (07:34)
[2023-08-21] MEDS: FUROSEMIDE 40 MG/4 ML VIAL IV SCH (08:56)
[2023-08-21] MEDS: LIDOCAINE 4% PATCH TOP SCH (08:56)
[2023-08-21] MEDS: CLOPIDOGREL 75 MG TABLET PO SCH (08:56)
[2023-08-21] MEDS: ISOSORBIDE DINIT 5 MG TAB PO SCH (08:56)
[2023-08-21] MEDS: carvediloL 25 MG TAB PO SCH (08:56)
[2023-08-21] MEDS: APIXABAN 5 MG TABLET PO SCH (08:57)
[2023-08-21] MEDS: PANTOPRAZOLE 40MG TABLET PO SCH (08:57)
[2023-08-21] MEDS: predniSONE 20 MG TAB PO SCH (08:57)
--- NOTE | 2023-08-21 12:32 | P.PN ---
Subjective Date of Service: 08/21/23 Chief Complaint: COPD exacerbation Subjective: Ambulating, Improving (Improving doing well no new complaint) Review of Systems Unremarkable Respiratory: Shortness of Breath Physical Examination - Vital Signs Temperature: 98.3 F Blood Pressure: 133/73 Pulse: 79 Respirations: 16 Pulse Ox (%): 100 - Physical Exam General: Alert, In no apparent distress, Oriented x3 Respiratory: Clear to auscultation bilaterally Cardiovascular: No edema, Normal pulses, Regular rate/rhythm Assessment And Plan - Current Problems (Diagnosis) (1) Acute on chronic diastolic heart failure Current Visit: Yes Status: Acute Plan: Back on Lasix renal function is improving renal ultrasound was normal (2) COPD exacerbation Current Visit: Yes Status: Acute Plan: Doing much better continue with prednisone bronchodilators stable for discharge (3) Pulmonary embolism Current Visit: Yes Status: Acute Plan: VQ scan did not show any evidence of chronic thromboembolic disease Qualifiers: Acute cor pulmonale presence: unspecified Physician Review: Patient Assessed, Agree with Above Assessment and Plan
[2023-08-21 12:52] VITALS: O2SAT 97
--- NOTE | 2023-08-21 13:06 | PN ---
Date of Progress Note: 08/21/2023 Subjective: The patient was admitted to the hospital with shortness of breath, congestive heart fail ure, hypoxemia. Patient currently on room air. Objective: Vital Signs: When I saw the patient, blood pressure 133/73, pulse of 79, afebrile. Chest: Clear to auscultation. Heart: S1, S2. Systolic murmur. Abdomen: Soft, nontender. Extremity: No edema. Neurologic: Alert. No focality. Laboratory Data: Hemoglobin 12. Sodium 136, potassium 4.1, bicarb 30, BUN 29, creatinine 1.9, GFR o f 43, calcium 8.3, magnesium 2.2. Current Medications: The patient on, it includes atorvastatin, Eliquis, breathing treatment, carvedi lol, isosorbide, Tylenol, Lasix 40 b.i.d., pantoprazole. Assessment And Plan: 1.Acute kidney injury, normal size kidney secondary to cardiorenal, on the recovery, looked to me no rmal volume. Currently, I am going to go ahead and change his Lasix to oral and we will continue to monitor the patient. 2.Hypertension, controlled, optimal. Continue current treatment. 3.Respiratory failure, multifactorial secondary to cardiorenal/interstitial lung disease/chronic obs tructive pulmonary disease. Patient normal volume. I will change the Lasix. We will follow up with the patient. 4.Hyponatremia secondary to dilutional, stable. We will change the Lasix to oral. GEORGE/EMI Voice ID: [id number] Report ID: [id number]
--- NOTE | 2023-08-21 14:44 | P.DS ---
Admission Date: 08/18/23 Discharge Date: 08/22/23 Reason for Admission: COPD exacerbation Brief History of Present Illness: 48-year-old male with history of chronic systolic congestive heart failure, CAD, left lower extremity DVT, CKD, COPD, hypertension presented to the emergency department chief manage shortness of breath. Friend at bedside is primary historian, reports orthopnea, started 3 days ago is progressively getting worse. He reports shortness of breath worse with exertion, worse when laying flat, better with oxygen and rest. He reports multiple prior admissions for acute on chronic diastolic heart failure. He report previously requiring intubation for hypoxia and heart failure. He reports history of a DVT on Eliquis. He reports chest pain described as chest pressure, bilateral, nonradiating. No reported fever, diaphoresis, nausea vomiting diarrhea, edema dizziness. ER evaluation hypertensive urgency BP 173 / 125; Pulse 90; Resp 20; Pulse Ox 100% on BiPAP; FiO2 100 %; EKG s 110 beats/min. Rhythm is regular. QRS [place] is Normal. [place] interval is normal. QRS interval is normal. QT interval is normal. No Q waves. T waves are Normal. No ST changes noted. Clinical impression: Abnormal EKG without significant change and No evidence of ischemia. Plan to admit for acute on chronic diastolic heart failure, acute respiratory failure, hypertensive urgency, COPD exacerbation. Laboratory values no leukocytosis, left shift 78.2, microcytic anemia 10.8 32.6, ABG respiratory acidosis pH 7.33, CO2 51, O2 398, acute on chronic kidney injury BUN 13 creatinine 1.66 elevated BNP's 6157, chest x-ray Hospital Course: Patient is a 48-year-old male with a past medical history significant for CHF, CAD, left lower extremity DVT, CKD, COPD, hypertension presenting with complaint of shortness of breath with associated signs and symptoms of orthopnea and chest pain. Patient was diagnosed with an acute on chronic CHF exacerbation and acute hypercarbic respiratory failure secondary to COPD exacerbation. Instrument Technician, fingerer and financial institution treasurer were consulted. Patient was placed on Lasix, nebulizer treatment, steroids and O2 therapy. Patient's symptoms improve over time. Renal functions also improved over time. VQ scan did not show any evidence of chronic thromboembolic disease. Patient was cleared for discharge by consultants for discharge. Patient was prescribed Trelegy Ellipta 100-62.5-25 by financial institution treasurer . Patient was instructed to follow-up with his PCP, fingerer, financial institution treasurer and carbon brusher assembler. Patient verbalized understanding discharge instructions and was discharged in stable condition. <LuankyraAdry montague Sophy - Last Filed: 08/22/23 20:12> Admission Date: 08/18/23 Discharge Date: 08/22/23 Hospital Course: Pt seen and examined. I agree with the note by the CABLE ENGINEER. Ok to discharge pt. <Dalila Guerrero - Last Filed: 08/22/23 22:40> Disposition: ROUTINE DISCHARGE Discharge Condition: FAIR Vital Signs/Physical Exam: Temp Pulse Resp BP Pulse Ox 98.3 F 79 16 133/73 100 08/21/23 12:32 08/21/23 12:32 08/21/23 12:32 08/21/23 12:32 08/21/23 12:32 General: Alert, In no apparent distress, Oriented x3 HEENT: Atraumatic, PERRLA, EOMI Neck: Supple, JVD not distended Respiratory: Clear to auscultation bilaterally, Normal air movement Cardiovascular: No edema, Regular rate/rhythm, Normal S1 S2 Capillary refill: <2 Seconds Gastrointestinal: Normal bowel sounds, Soft and benign, No tenderness Musculoskeletal: No clubbing, No swelling, No tenderness Integumentary: No rashes Neurological: Normal speech, Normal tone, Normal affect Lymphatics: No axilla or inguinal lymphadenopathy Laboratory Data at Discharge: WBC 12.60 thou/uL (4.3-10.9) H 08/21/23 05:06 Hgb 12.0 g/dL (13.6-17.9) L 08/21/23 05:06 Hct 36.7 % (39.6-49.0) L 08/21/23 05:06 Plt Count 177 thou/uL (152-406) 08/21/23 05:06 PT 12.6 SECONDS (9.5-12.5) H 08/18/23 05:20 INR 1.15 08/18/23 05:20 Sodium 136 mEq/L (136-145) 08/21/23 05:06 Potassium 4.1 mEq/L (3.5-5.1) 08/21/23 05:06 BUN 29 mg/dL (7-18) H 08/21/23 05:06 Creatinine 1.90 mg/dL (0.70-1.30) H 08/21/23 05:06 Glucose 118 mg/dL (74-106) H 08/21/23 05:06 Magnesium 2.2 mg/dL (1.6-2.4) 08/21/23 05:06 Total Bilirubin 0.6 mg/dL (0.2-1.0) 08/18/23 05:20 AST 8 U/L (15-37) L 08/18/23 05:20 ALT 15 U/L (16-61) L 08/18/23 05:20 Alkaline Phosphatase 67 U/L (45-117) 08/18/23 05:20 <Adry Duff E - Last Filed: 08/22/23 20:12> Vital Signs/Physical Exam: Temp Pulse Resp BP Pulse Ox 97.9 F 66 16 129/71 98 08/21/23 16:45 08/21/23 16:45 08/21/23 16:45 08/21/23 16:45 08/21/23 16:45 Laboratory Data at Discharge: WBC 12.60 thou/uL (4.3-10.9) H 08/21/23 05:06 Hgb 12.0 g/dL (13.6-17.9) L 08/21/23 05:06 Hct 36.7 % (39.6-49.0) L 08/21/23 05:06 Plt Count 177 thou/uL (152-406) 08/21/23 05:06 PT 12.6 SECONDS (9.5-12.5) H 08/18/23 05:20 INR 1.15 08/18/23 05:20 Sodium 136 mEq/L (136-145) 08/21/23 05:06 Potassium 4.1 mEq/L (3.5-5.1) 08/21/23 05:06 BUN 29 mg/dL (7-18) H 08/21/23 05:06 Creatinine 1.90 mg/dL (0.70-1.30) H 08/21/23 05:06 Glucose 118 mg/dL (74-106) H 08/21/23 05:06 Magnesium 2.2 mg/dL (1.6-2.4) 08/21/23 05:06 Total Bilirubin 0.6 mg/dL (0.2-1.0) 08/18/23 05:20 AST 8 U/L (15-37) L 08/18/23 05:20 ALT 15 U/L (16-61) L 08/18/23 05:20 Alkaline Phosphatase 67 U/L (45-117) 08/18/23 05:20 <Dalila Guerrero - Last Filed: 08/22/23 22:40> Diet: AHA Activity: Ad raji Physician Review: Patient Assessed, Agree with Above Assessment and Plan <Adry Duff E - Last Filed: 08/22/23 20:12> <Dalila Guerrero - Last Filed: 08/22/23 22:40> Home Medications: Atorvastatin Calcium [Lipitor] 40 mg PO BEDTIME 06/29/23 Carvedilol [Coreg] 25 mg PO BID 06/29/23 Clopidogrel Bisulfate [Plavix*] 75 mg PO DAILY 06/29/23 Ipratropium/Albuterol Sulfate [Combivent Respimat 20-100 Mcg] 2 puff IH DAILY PRN 06/29/23 Omeprazole [Prilosec] 40 mg PO DAILY 07/03/23 Apixaban [Eliquis] 5 mg PO BID #60 tab 07/04/23 Isosorbide Dinit [Isordil*] 10 mg PO DAILY #30 tab 07/04/23 Lidocaine 4% Patch [Lidoderm 5% Patch*] 1 patch TOP Q24H #30 pat 07/04/23 Fluticasone/Umeclidin/Vilanter [Trelegy Ellipta 100-62.5-25] 1 each IH DAILY 30 Days #30 aero 08/19/23 Furosemide [Lasix] 40 mg PO BIDL 30 Days #60 tab 08/21/23 New Medications: Furosemide [Lasix] 40 mg PO BIDL 30 Days #60 tab Fluticasone/Umeclidin/Vilanter [Trelegy Ellipta 100-62.5-25] 1 each IH DAILY 30 Days #30 aero Followup: Keaton Gu MD [ACTIVE - CAN ADMIT] - Daniel Hernandez MD [ACTIVE - CAN ADMIT] - Dat Hamilton MD [ACTIVE - CAN ADMIT] - Unknown,U [Primary Care Provider] -
[2023-08-21 16:53] VITALS: BP 129/71
[2023-08-21 16:54] VITALS: TEMP 97.9
[2023-08-21] MEDS ORDERED: FUROSEMIDE 40 MG TABLET PO SCH (17:00)
--- NOTE | 2023-08-23 13:49 | EKG ---
Test Date: 2023-08-18 Test Time: 04:50:16 Public Address System Operator: DRAKE MEASUREMENT RESULTS: Intervals: Rate: 102 NV: 172 QRSD: 80 QT: 326 QTc: 424 [place]: P: 72 NV: 172 QRS: 43 T: 83 INTERPRETIVE STATEMENTS: Sinus tachycardia Biatrial enlargement Anterior infarct, age undetermined Abnormal ECG Compared to ECG 06/28/2023 09:00:55 Atrial abnormality now present Myocardial infarct finding now present Sinus rhythm no longer present T-wave abnormality no longer present Possible ischemia no longer present Electronically Signed On 08-23-23 13:28:39 EXPORT SPECIALIST by Dat Hamilton
== END 2023-08-21 17:56 | disposition home or self-care (01) | DRG 291 ==
LOC: ER 04:49 → ERHOLD 07:29 → 4TH 09:19
PROVIDERS: ADMIT Hospitalist; ATTEND Hospitalist
PROC: 5A09457 Assistance with Respiratory Ventilation, 24-96 Consecutive Hours, Continuous Positive Airway Pressure (ICD-10-PCS; principal; 2023-08-18)
DX: I13.0 Hypertensive heart and chronic kidney disease with heart failure and stage 1 through stage 4 chronic kidney disease, or unspecified chronic kidney disease (principal); I50.33 Acute on chronic diastolic (congestive) heart failure; J96.01 Acute respiratory failure with hypoxia; J96.02 Acute respiratory failure with hypercapnia; J44.1 Chronic obstructive pulmonary disease with (acute) exacerbation; N17.9 Acute kidney failure, unspecified; E87.1 Hypo-osmolality and hyponatremia; N18.30 Chronic kidney disease, stage 3 unspecified; E11.22 Type 2 diabetes mellitus with diabetic chronic kidney disease; D63.1 Anemia in chronic kidney disease; I16.0 Hypertensive urgency; D50.9 Iron deficiency anemia, unspecified; I25.10 Atherosclerotic heart disease of native coronary artery without angina pectoris; I25.2 Old myocardial infarction; F17.210 Nicotine dependence, cigarettes, uncomplicated; Z60.2 Problems related to living alone; Z88.5 Allergy status to narcotic agent; Z79.02 Long term (current) use of antithrombotics/antiplatelets; Z79.01 Long term (current) use of anticoagulants; Z86.73 Personal history of transient ischemic attack (TIA), and cerebral infarction without residual deficits; Z11.52 Encounter for screening for COVID-19; Z79.899 Other long term (current) drug therapy; Z86.718 Personal history of other venous thrombosis and embolism; Z86.711 Personal history of pulmonary embolism
CPT/HCPCS: 36415; 36600; 71045; 76770; 78582; 80048; 80076; 81001; 82570; 82805; 83605; 83735; 83880; 84156; 84484; 85025; 85610; 87040; 87635; 87804; 93005; 94640; 94660; 94760; A9540; J1100; J1940; J2001; J2920; J7512; J7605; J7613; J7614